=== PATIENT | female | born 1945 | race Caucasian/White ===

== ENCOUNTER → 2018-02-20 15:41 | Outpatient (CLI) | payer MEDICARE, BC, SELFPAY ==
--- NOTE | 2018-02-20 | ASPS_PTH ---
PATIENT: MEREDITH MARRERO LOC: [facility] U#:[id number] AGE/SX: 80/F ROOM: RE02/20/[address]: Dr. Haseeb Luu MD : [id number] BED: DIS: SPEC #: [id number] RECD: 02/21/18 08:34 STATUS: YESSICA MARTINEZAriel #: [id number] JOSE ROBERTO: 02/20/18 00:[address]: Haseeb Luu DEPT: CYTOLOGY RECD BY: Osmani Levine ENTERED: 02/21/18 08:34 SP TYPE: ASPIRATION OTHR DR: Dr. Matthias Bhandari MD Tissues: Nipple Procedures: Pap Stain (control) Special Stain Group II Cytology Other HEADER OPERATION: Left breast nipple discharge PRE-OP DIAGNOSIS: Breast discharge TISSUE SUBMITTED: Left breast slides DIAGNOSIS CYTOLOGY Left breast discharge, left breast nipple discharge (smears): Negative for malignant cells. SJ:claire 02/24/18 COMMENT Clinical correlation and appropriate followup are necessary. CYTOLOGY STUDY Slides are reviewed. This specimen consists of amorphous acellular material. CYTOLOGY GROSS Received are 4 smears labeled with the patient's name and designated per the requisition as left breast discharge. Submitted for staining. /Susy 02/21/18 TC:5 CPT: 49245
== END ==
PROVIDERS: Family Provider Family Medicine; PCP Family Medicine; Visit Provider Surgery
DX: N64.52 Nipple discharge (principal)
CPT/HCPCS: 88161; 88313

== ENCOUNTER 2021-04-21 09:57 | Emergency (ER) | payer MEDICARE, BC, SELFPAY ==
[2021-04-21 09:58] VITALS: BP 161/80; PULSE 114; RESP 18; TEMP 36.4; O2SAT 97; BMI 30.4
--- NOTE | 2021-04-21 10:09 | CT_ITS ---
STUDY: CTA CHEST REASON FOR EXAM: Female, 75 years old. Elevated d-dimer RADIATION DOSAGE (If Supplied By Facility): CTDIvol = ( 11.06 ) mGy, DLP = ( 536.84 ) mGycm TECHNIQUE: The examination was performed with the intravenous administration of IV 100mL Isovue-370. Post-processing of the angiographic images was performed, with multiplanar reformation and 3D reconstruction. Individualized dose optimization techniques were used for this CT. COMPARISON: Comparison is made with prior examination dated 01/08/2017. FINDINGS: Normal enhancement of the main pulmonary artery and right and left pulmonary arteries. Normal enhancement of the bilateral peripheral pulmonary arteries. There is no demonstrated pulmonary embolism. Normal thoracic aorta and visualized great vessels. There is no demonstrated aortic dissection. There are calcifications of the coronary arteries. Normal mediastinum. Normal hilar regions. Normal visualized trachea and bronchi. The lungs are well expanded. Normal pulmonary parenchyma. Normal pleura. Normal chest wall structures. There are degenerative changes of thoracic spine. Normal visualized upper abdomen. CT/CTA Chest W/WO Contrast IMPRESSION: Normal CTA chest examination, without a demonstrated pulmonary embolism or arterial dissection. Electronically Signed: Cade Sweeney MD at 11:05 EDT , Service support ,
--- NOTE | 2021-04-21 10:09 | VDLE_ITS ---
Reason For Study: Elevated D-dimer RIGHT LEFT CFV is compressible, spontaneous, phasic, GSV is normal. competent and demonstrates normal CFV is compressible, spontaneous, phasic, augmentation. competent, and demonstrates normal Procedure augmentation. This is a venous duplex using B-mode, color FV is compressible, spontaneous, phasic, flow and spectral Doppler. competent and demonstrates normal Exam performed portable in ED. augmentation. A preliminary report was called and/or faxed POP V is compressible, spontaneous, phasic, to Ray. competent and demonstrates normal augmentation. T/P Trunk is compressible. PTV is compressible. LT PerV is compressible. VL/Venous Duplex US, Unilateral Interpretation Summary There is no evidence of left lower extremity deep vein thrombosis. Left great s aphenous vein appears patent and compressible segmentally. Normal flow patterns right common femoral vein Ordering Physician: Ephraim Bell Referring Physician: Matthias Bhandari Performed By: Liudmila Allen RVT
--- NOTE | 2021-04-21 10:11 | EX.ED.DYSGE1 ---
HPI History of Present Illness Chief Complaint: Abn Labs Detail of Chief Complaint: Elevated D-dimer with a history of shortness of breath is evaluate for poss Informant: patient Onset/Context/Timing Onset: Month(s) Current Severity: Mild Maximum Severity: Mild Narrative Narrative: 35-year-old female history of asthma and valvular heart disease. Status post left knee replaced at a [facility] facility in December. Since that time she has had swelling in her left leg. She is also had increased shortness of breath. They have changed her asthma get Acacian without relief. She is unable to make it through physical therapy session due to her dyspnea. No chest pain. No hemoptysis. No prior history of DVT or PE. She was seen outpatient facility by pulmonology had elevated D-dimer and they referred her to the emergency department. Prior similar symptoms: Yes Recent Illness/Hospitalization: No PFSH PFS Medical History (Updated 04/21/21 @ 11:[address] Ephraim Bell MD) Asthma HTN (hypertension) Hyperlipidemia Home Medications folic acid 1 mg PO QHS #0 10/07/13 [History Last Taken 10/06/13] lansoprazole [Prevacid] 30 mg PO DAILY #0 10/07/13 [History Last Taken 10/06/13] albuterol sulfate [Proair Hfa (SP)Vent Pts] 1 - 2 puff INHALATION Q4H PRN PRN #0 10/08/13 [History Last Taken Unknown] hydrocortisone acetate [Anucort-HC] 25 mg RECTAL BID PRN PRN 10/08/13 [History Last Taken Unknown] cholecalciferol (vitamin D3) [Vitamin D3] 1,000 unit PO QHS 01/08/17 [History Last Taken Unknown] nystatin 1 applicatio TOPICAL BID 01/08/17 [History Last Taken Unknown] duloxetine 20 mg PO DAILY 04/21/21 [History Last Taken Unknown] vibegron [Gemtesa] 75 mg PO DAILY 04/21/21 [History Last Taken Unknown] Allergy/AdvReac Type Severity Reaction Status Date / Time Penicillins [PCN] Allergy red/rash Verified 04/21/21 10:00 at injection site promethazine HCl Allergy Unknown Verified 04/21/21 10:00 [From Phenergan] Ayoknyx-Udt-Xfb Reductase Allergy Other Verified 04/21/21 10:00 Inhibitor Sulfa (Sulfonamide Allergy Swelling Verified 04/21/21 10:00 Antibiotics) Surgical History (Updated 04/21/21 @ 10:23 by Nell Gonzalez) History of left knee replacement Hx of cholecystectomy Hx of tonsillectomy Social History Smoking Status: Never smoker ROS ROS ED ROS Narrative Denies recent illness. Review of Systems ROS Unobtainable: Denies due to encephalopathy Constitutional Constitutional ED: Denies chills or fever(s) Eyes Eyes: Denies change in vision ENT ENT ED: Denies ear pain or sore throat Cardiovascular Cardiovascular: Denies chest pain or palpitations Respiratory/Chest Respiratory/Chest: Reports dyspnea and dyspnea on exertion; Denies cough Gastrointestinal Gastrointestinal: Denies abdominal pain, diarrhea, nausea or vomiting Genitourinary Genitourinary ED: Denies dysuria or hematuria Musculoskeletal Musculoskeletal: Denies arthralgias or myalgias Integumentary Denies rash Neurologic Neurologic: Denies headache(s) Psychiatric Psychiatric: Denies depression Endocrine Endocrinology: Denies polyuria Allergic/Immunologic Allergic/Immunologic ED: Denies urticaria EXAM Physical Exam Narrative Exam Narrative: NT exam unremarkable. Neck nontender no JVD no lymphadenopathy. Lungs clear to auscultation bilaterally. Heart regular rhythm no murmur. Rate about 100. Abdomen soft nontender normal bowel sounds no peritoneal signs. Patient moving all 4 extremities. Status post left knee replaced well-healed anterior surgical incision. She has mild swelling of the left leg compared to the right. No pitting edema. Calves are nontender without cords. She has normal motor strength both upper and lower extremities.Well-appearing 75-year-old female. Vital signs are stable afebrile. Pulse ox 97% on room air no hypoxia. Const Vital Signs: 04/21/21 09:58 Temperature 97.6 F L Temperature Source Temporal Pulse Rate 114 H Respiratory Rate 18 Blood Pressure 161/80 H Blood Pressure Mean 107 Pulse Ox 97 Oxygen Delivery Method Room Air Positive well nourished and well developed; Negative for obese, cachectic, contractures or unkempt General Appearance ED: well developed and NAD; Negative for unkempt, cachectic, contractures, cyanotic or diaphoretic Nutritional Appearance: Negative for cachectic or obese HEENT Reports moist mucous membranes Negative for trauma or tenderness Eyes PERRL and EOMs intact bilaterally Neck no lymphadenopathy, supple and no JVD General: Negative for tenderness Chest Wall inspection of chest normal and palpation of chest normal Resp normal respiratory effort and clear to auscultation bilaterally Auscultation: Negative for rales, rhonchi or wheezes Cardio regular rate, regular rhythm, S1 normal heart sound, S2 normal heart sound and no murmurs GI normal to inspection, nondistended, normoactive bowel sounds, non-tender and non-distended Auscultation: normoactive bowel sounds Palpation: soft Back/Spine no CVA tenderness General Back: Negative for CVA tenderness Extremity normal to inspection Extremity Narrative: My swelling left lower extremity. Status post left knee replaced. General Extremety ED: Negative for edema or tenderness General Extremity: Negative for edema Neuro oriented x3 and CN's II-XII intact bilaterally Sensorium / Orientation: alert; Negative for orientation impaired, lethargic or stuporous Motor Exam: strength 5/5 throughout; Negative for general weakness Psych mental status grossly normal Appearance: Negative for unkempt Attitude: No agitated Mood & Affect: Negative for depressed or tearful Skin no rashes or lesions noted and no wounds MDM MDM MDM Narrative Medical decision making narrative: 75-year-old female with shortness of breath elevated D-dimer and the knee replaced in December with leg swelling. Screening labs being obtained along with ultrasound of her left leg and a CTA of her chest. Repeat exam at 11:25 AM patient is doing well. Clinically looks good. She had I went over all of her test results. Her hemoglobin is 9.6 she states that is actually improving the most recent one she had done was 9.2 at another facility. She is on iron. I went over her test results with her including her CTA and venous ultrasound. She will follow up as an outpatient. Lab Data Attestation: I reviewed the patient's lab results. Lab results narrative: CBC shows a white count of 7.6. Hemoglobin at 9.6. Electrolytes unremarkable gap of 5. Creatinine of 1. Glucose 111. Ultrasound of the patient's leg showed no DVT on the left. CTA was read by the radiologist showed no PE. Labs: Laboratory Results - last 24 hr 04/21/21 04/21/21 10:14 10:14 WBC 7.6 RBC 4.29 Hgb 9.6 L Hct 33.4 L MCV 77.9 L MCH 22.4 L MCHC 28.7 L RDW Std Deviation 53.5 H RDW Coeff of Kaden 18.9 H Plt Count 580 H MPV 8.4 Immature Gran % (Auto) 0.400 Neut % (Auto) 71.0 H Lymph % (Auto) 19.3 Cochran % (Auto) 5.4 Eos % (Auto) 3.5 Baso % (Auto) 0.4 Absolute Neuts (auto) 5.4 Absolute Lymphs (auto) 1.47 Nucleated RBC % 0 Sodium 138 Potassium 4.4 Chloride 105 Carbon Dioxide 28.0 Anion Gap 5 BUN 16 Creatinine 1.00 Estim Creat Clear Calc 46.54 Est GFR (MDRD) Af Amer 69 Est GFR (MDRD) Non-Af 57 L BUN/Creatinine Ratio 16.0 Glucose 111 H Calcium 9.5 Radiography Diagnostic Testing: Radiology Impression Chest CTA 04/21/21 10:09 IMPRESSION: Normal CTA chest examination, without a demonstrated pulmonary embolism or arterial dissection. Electronically Signed: Cade Sweeney MD at 11:05 EDT , Service support , EKG Initial EKG: Attestation: I personally reviewed and interpreted this EKG as follows: Interpretation: Sinus Rhythm and No Acute Injury Pattern Comments: Normal sinus rhythm rate of 92 no acute signs of IL or ischemia. Discharge Plan Triage Chief Complaint: Abn Labs ED Provider: Ephraim Bell Dx/Rx/DC Orders Clinical Impression: Anemia, chronic disease Prescriptions: No Action lansoprazole [Prevacid] 30 MG capsule 30 mg PO DAILY Qty: 0 RF: 0 folic acid 1 MG tablet 1 mg PO QHS Qty: 0 RF: 0 hydrocortisone acetate [Anucort-HC] 25 MG suppository 25 mg RECTAL BID PRN PRN (Reason: Hemorrhoids) RF: 0 albuterol sulfate [ProAir HFA] 1 PUFF inhaler 1 - 2 puff inhalation Q4H PRN PRN (Reason: Sob &/Or Wheezing) Qty: 0 RF: 0 nystatin 15 GM Cream..G. 1 applicatio topical BID RF: 0 cholecalciferol (vitamin D3) [Vitamin D3] 1,000 UNIT capsule 1,000 unit PO QHS RF: 0 duloxetine 20 mg capsule,delayed release(DR/EC) 20 mg PO DAILY RF: 0 Gemtesa 75 mg tablet 75 mg PO DAILY RF: 0 Primary Care Provider: Layla Bellamy Referrals: Layla Bellamy, PA [Primary Care Provider] - As Needed Activity Restrictions/Additional Instructions: Follow-up with your primary care provider as needed. Your hemoglobin today was 9.6. Your electrolytes are unremarkable. The CAT scan of your chest and ultrasound of your leg showed no signs of any blood clot. Disposition Disposition: Home, Self Care
--- NOTE | 2021-04-21 10:15 | EKG12_ITS ---
Test Reason : HIGH D DIMER Blood Pressure : / mmHG Vent. Rate : 092 BPM Atrial Rate : 092 BPM P-R Int : 112 ms QRS Dur : 078 ms QT Int : 338 ms P-R-T Axes : 000 000 002 degrees QTc Int : 417 ms Normal sinus rhythm Normal ECG Confirmed by PHAM LANE, REAL ([id number]), food editor GEOVANY GIBBONS ([id number]) on 04/26/2021 10:03:54 AM Referred By: DAVID Confirmed By:REAL NATH MD
[2021-04-21 10:23] LABS: Absolute Lymphocyte Count 1.47 X10^3/uL (0.83-4.51); Absolute Neutrophil Count 5.4 X10^3/uL (2.0-7.7); Basophil# 0.03 X10^3/uL; Basophil% 0.4 % (0-1); Eosinophil# 0.27 X10^3/uL; Eosinophils% 3.5 % (0-5); Hematocrit 33.4 % (37-47); Hemoglobin 9.6 g/dL (12.0-15.0); Lymphocyte # 1.47 X10^3/ul (0.83-4.51); Lymphocyte % 19.3 % (19-41); Mean Corp Hgb Conc 28.7 g/dL (32-36); Mean Corpuscular Hgb 22.4 pg (27.0-32.0); Mean Corpuscular Volume 77.9 fL (81-99); Mean Platelet Vol. 8.4 fl (6.2-12.0); Monocyte# 0.41 X10^3/uL; Monocyte% 5.4 % (0-10); NRBC Flagged by Analyzer 0 % (0-5); Neutrophil # 5.42 X10^3/uL (2.7-7.7); Platelet Count 580 K/mm3 (150-450); RBC Distribution Width CV 18.9 % (11.6-14.6); RBC Distribution Width SD 53.5 fl (35.1-43.9); Red Blood Count 4.29 M/mm3 (4.2-5.4); White Blood Count 7.6 K/mm3 (4.4-11.0)
--- NOTE | 2021-04-21 10:35 | ED.RN ---
IV started by jany flores,rn [id number]
[2021-04-21 10:36] LABS: Anion Gap 5 (5-15); BUN 16 mg/dL (7-18); Calcium,Total 9.5 mg/dL (8.5-10.1); Chloride 105 mmol/L (98-107); EST Glomerular Filtration Rate 57 mL/min (>60); Est Glom Filt Rate - Afr Amer 69 mL/min (>60); Estimated Creatinine Clearance 46.54 ml/min; Glucose 111 mg/dL (74-106); Potassium 4.4 mmol/L (3.5-5.1); Sodium Level 138 mmol/L (136-145)
[2021-04-21 11:41] VITALS: BP 129/81; PULSE 83; RESP 16; O2SAT 99
== END 2021-04-21 11:42 | disposition home or self-care (01) ==
PROVIDERS: Emergency Provider Emergency Medicine; PCP Physician Assistant
DX: R79.89 Other specified abnormal findings of blood chemistry (principal); D63.8 Anemia in other chronic diseases classified elsewhere; M79.89 Other specified soft tissue disorders; R06.02 Shortness of breath; I10 Essential (primary) hypertension; E78.5 Hyperlipidemia, unspecified; J45.909 Unspecified asthma, uncomplicated; Z79.899 Other long term (current) drug therapy; Z96.652 Presence of left artificial knee joint
CPT/HCPCS: 71275; 80048; 85025; 93005; 93971; 99282; Q9967; A4216

== ENCOUNTER 2021-08-25 19:15 | Inpatient (IN) | payer MEDICARE, BC, SELFPAY ==
[2021-08-25 19:22] VITALS: BP 144/76; PULSE 96; RESP 16; TEMP 36.4; O2SAT 96
[2021-08-25 19:50] VITALS: BMI 28.0
[2021-08-25 20:50] VITALS: BP 154/66; PULSE 92; RESP 16; TEMP 36.9; O2SAT 96
[2021-08-25] MEDS: Heparin Injection (Vial) 5,000 UNIT/ML VIAL 5000 UNIT SC (21:53)
[2021-08-25] MEDS: busPIRone 5 MG Tablet PO (21:54)
[2021-08-25] MEDS: Senna/Docusate Sodium 1 Tablet 2 TABLET PO (21:54)
[2021-08-25 22:00] VITALS: PULSE 96; RESP 16; O2SAT 95
[2021-08-25] MEDS: 0.9% Saline Lock 10 ML Syringe IV (22:11)
[2021-08-26] MEDS: Acetaminophen 500 MG Tablet 1000 MG PO (02:41)
--- NOTE | 2021-08-26 04:53 | PCM.RX.CS ---
Consult Pharmacy has been consulted to manage selected antiobiotic: Vancomycin Type of Consult: Follow-up Pharmacy Plan for Drug Dosing: Pharmacy Service will continue to monitor and adjust dosing as required. ALREADY ON 1.5G Q24H, DRAW TROUGH PROIR TO NEXT DOSE Follow-Up Labs: Trough Vancomycin Labs to be done on [date and time ordered]: 08/26 @ 9776
[2021-08-26] MEDS: busPIRone 5 MG Tablet PO ×3 (05:39→20:25)
[2021-08-26 07:44] VITALS: BP 145/57; PULSE 78; RESP 16; TEMP 36.6; O2SAT 95
[2021-08-26 07:52] VITALS: O2SAT 97
[2021-08-26] MEDS: Ascorbic Acid 500 MG Tablet 1000 MG PO (08:08)
[2021-08-26] MEDS: Aspirin 81 MG TAB.CHEW PO (08:08)
[2021-08-26] MEDS: Folic Acid/Vitamin B Comp W-C 1 Capsule 1 CAP PO (08:10)
[2021-08-26] MEDS: Pantoprazole Sodium 40 MG Tablet PO (08:10)
[2021-08-26] MEDS: Meloxicam 7.5 MG Tablet PO (08:10)
[2021-08-26] MEDS: Heparin Injection (Vial) 5,000 UNIT/ML VIAL 5000 UNIT SC ×2 (08:10→20:27)
[2021-08-26] MEDS: buPROPion (XL) 150 MG TABLET.XL PO (08:10)
[2021-08-26 09:49] LABS: Absolute Lymphocyte Count 0.94 X10^3/uL (0.83-4.51); Absolute Neutrophil Count 7.4 X10^3/uL (2.0-7.7); Basophil# 0.03 X10^3/uL; Basophil% 0.3 % (0-1); Eosinophil# 0.24 X10^3/uL; Eosinophils% 2.6 % (0-5); Hemoglobin 8.6 g/dL (12.0-15.0); Lymphocyte # 0.94 X10^3/ul (0.83-4.51); Mean Corp Hgb Conc 29.7 g/dL (32-36); Mean Corpuscular Hgb 24.4 pg (27.0-32.0); Mean Corpuscular Volume 82.2 fL (81-99); Mean Platelet Vol. 9.3 fl (6.2-12.0); Monocyte# 0.62 X10^3/uL; Monocyte% 6.6 % (0-10); NRBC Flagged by Analyzer 0 % (0-5); Neutrophil # 7.43 X10^3/uL (2.7-7.7); Neutrophil % 79.2 % (47-70); Platelet Count 421 K/mm3 (150-450); RBC Distribution Width CV 18.9 % (11.6-14.6); Red Blood Count 3.53 M/mm3 (4.2-5.4); White Blood Count 9.4 K/mm3 (4.4-11.0)
[2021-08-26 10:07] LABS: ALB/GLOB Ratio 0.5 RATIO (0.9-2.4); AST(SGOT) 22 U/L (15-37); Alanine Aminotransfer ALT/SGPT 54 U/L (13-56); Albumin, Serum 2.2 g/dL (3.2-5.0); Alkaline Phosphatase 152 U/L (45-117); Anion Gap 6 (5-15); BUN 11 mg/dL (7-18); BUN/Creat Ratio 14.1 RATIO (10-20); Calcium,Total 9.1 mg/dL (8.5-10.1); Chloride 107 mmol/L (98-107); Creatinine, Serum 0.78 mg/dL (0.55-1.02); EST Glomerular Filtration Rate 76 mL/min (>60); Est Glom Filt Rate - Afr Amer 92 mL/min (>60); Globulin 4.4 g/dL (2.2-4.2); Glucose 140 mg/dL (74-106); Magnesium 2.2 mg/dL (1.6-2.6); Phosphorus 2.3 mg/dL (2.5-4.9); Potassium 3.5 mmol/L (3.5-5.1); Protein, Total 6.6 g/dL (6.4-8.2); Sodium Level 141 mmol/L (136-145)
[2021-08-26] MEDS: Ferrous Sulfate 325 MG Tablet PO (13:08)
[2021-08-26 13:42] LABS: Erythrocyte Sedimentation Rate 100 mm/hr (0-30)
[2021-08-26] MEDS: Na Biphos/Potassium Phosphate PACKET 1 PACKET PO ×2 (16:52→20:28)
[2021-08-26 19:21] VITALS: BP 149/87; PULSE 89; RESP 16; TEMP 36.6; O2SAT 97
[2021-08-26] MEDS: Rosuvastatin Calcium 5 MG Tablet PO (20:26)
[2021-08-26 21:12] VITALS: PULSE 92; RESP 16; O2SAT 96
[2021-08-26 22:01] LABS: Vancomycin, Trough Level 11.6 ug/mL (5.0-15.0)
--- NOTE | 2021-08-27 00:56 | PCM.RX.CS ---
Consult Pharmacy has been consulted to manage selected antiobiotic: Vancomycin Type of Consult: Follow-up Labs: Sodium 141 mmol/L (136-145) 08/26/21 09:28 Potassium 3.5 mmol/L (3.5-5.1) 08/26/21 09:28 Chloride 107 mmol/L (98-107) 08/26/21 09:28 Carbon Dioxide 28.0 mmol/L (21.0-32.0) 08/26/21 09:28 Anion Gap 6 (5-15) 08/26/21 09:28 BUN 11 mg/dL (7-18) 08/26/21 09:28 Creatinine 0.78 mg/dL (0.55-1.02) 08/26/21 09:28 Est GFR (MDRD) Af Amer 92 mL/min (>60) 08/26/21 09:28 Est GFR (MDRD) Non-Af 76 mL/min (>60) 08/26/21 09:28 BUN/Creatinine Ratio 14.1 RATIO (10-20) 08/26/21 09:28 Glucose 140 mg/dL (74-106) H 08/26/21 09:28 Vancomycin Trough 11.6 ug/mL (5.0-15.0) 08/26/21 21:28 Pharmacy Plan for Drug Dosing: Pharmacy Service will continue to monitor and adjust dosing as required. TROUGH 11.1 REDRAW IN 2 DOSES Follow-Up Labs: Trough Vancomycin Labs to be done on [date and time ordered]: 08/28 @ 5776
[2021-08-27] MEDS: busPIRone 5 MG Tablet PO ×3 (06:00→21:19)
[2021-08-27] MEDS: Na Biphos/Potassium Phosphate PACKET 1 PACKET PO ×3 (06:00→21:17)
[2021-08-27 08:00] VITALS: BP 135/76; PULSE 85; RESP 16; TEMP 36.9; O2SAT 98
[2021-08-27] MEDS: Pantoprazole Sodium 40 MG Tablet PO (08:27)
[2021-08-27] MEDS: Aspirin 81 MG TAB.CHEW PO (08:28)
[2021-08-27] MEDS: Heparin Injection (Vial) 5,000 UNIT/ML VIAL 5000 UNIT SC ×2 (08:28→21:18)
[2021-08-27] MEDS: Ascorbic Acid 500 MG Tablet 1000 MG PO (08:28)
[2021-08-27] MEDS: buPROPion (XL) 150 MG TABLET.XL PO (08:31)
[2021-08-27] MEDS: Meloxicam 7.5 MG Tablet PO (08:32)
[2021-08-27] MEDS: Folic Acid/Vitamin B Comp W-C 1 Capsule 1 CAP PO (08:32)
[2021-08-27] MEDS: Acetaminophen 500 MG Tablet 1000 MG PO (08:41)
[2021-08-27] MEDS: 0.9% Saline Lock 10 ML Syringe IV ×2 (08:44→21:21)
[2021-08-27 09:24] VITALS: O2SAT 96
--- NOTE | 2021-08-27 10:03 | PCM.HP.STD ---
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 Calderon at [facility]. She is on IV Vancomycin currently and the final cultures were not available at the time of transfer from [place]. She was transferred to the in acute rehab unit at [facility] on 08/25/21 for 3 hours of PT/OT daily to restore function/dependence at or near her baseline. She has no help at home since her is in rehab at [facility] for CVA and for a non-healing wound. She is ambulatory. She has a PICC line for antibiotic administration. Post-op cultures were still pending at the time of DC from [place]. She has 1 step to enter her home. Walk in shower. She lives in a condo at [facility]. All lab from 08/26/21 was personally reviewed. She has not had her Booster for Moderna - The second vaccine was last September. [facility] Medical History (Updated 08/27/21 @ 12:[address] Joslyn Aleman, ) Anxiety and depression Asthma CAD (coronary artery disease) Diverticulosis GERD (gastroesophageal reflux disease) Grade I diastolic dysfunction History of gastrointestinal bleeding HTN (hypertension) Hyperlipidemia IBS (irritable bowel syndrome) Intraductal papillary mucinous neoplasm Iron deficiency anemia Nonrheumatic mitral valve regurgitation RAVIN (obstructive sleep apnea) Osteoarthritis Peripheral neuropathy Prosthetic joint infection Pulmonary HTN Pulmonary nodules Seasonal allergies Urge urinary incontinence Home Medications folic acid 1 mg PO QHS #0 10/07/13 [History Last Taken 10/06/13] lansoprazole [Prevacid] 30 mg PO DAILY #0 10/07/13 [History Last Taken 10/06/13] albuterol sulfate [Proair Hfa (SP)Vent Pts] 2 puff INHALATION Q6H PRN PRN #0 10/08/13 [History Last Taken Unknown] vibegron [Gemtesa] 75 mg PO DAILY 04/21/21 [History Last Taken Unknown] Allergy/AdvReac Type Severity Reaction Status Date / Time Penicillins [PCN] Allergy red/rash Verified 04/21/21 10:00 at injection site promethazine HCl Allergy Unknown Verified 04/21/21 10:00 [From Phenergan] Wlzxhou-AEI-CiO Reductase Allergy Other Verified 04/21/21 10:00 Inhibitor [Iacyngw-Hix-Cwp Reductase Inhibitor] Sulfa (Sulfonamide Allergy Swelling Verified 04/21/21 10:00 Antibiotics) Family History (Updated 08/27/21 @ 10:[address] Joslyn Aleman DO) Grandfather Cancer paternal GF Grandfather Cancer maternal GF Father CAD (coronary artery disease) Diabetes Grandmother No problems noted. Mother CAD (coronary artery disease) Brother CAD (coronary artery disease) Sister Diabetes Surgical History (Updated 08/27/21 @ 10:[address] Joslyn Aleman DO) Acquired absence of joint following explantation of joint prosthesis with presence of antibiotic-impregnated cement speaker History of left knee replacement Hx of cholecystectomy Hx of tonsillectomy Social History (Updated 08/27/21 @ 10:[address] Joslyn Aleman DO) household members: spouse and other details: is currently in a SNF for rehab post CVA housing: house Smoking Status: Never smoker alcohol intake: never substance use type: does not use ROS Constitutional Constitutional: Reports other Details: insomnia ; Denies anorexia, change in weight, chills, fatigue, fever(s), night sweats or weakness Eyes Eyes: Denies blurry vision, change in vision, eye pain or loss of vision ENT HEENT: Denies abnormal hearing, dysphagia, headache(s), hearing loss, nasal congestion, odynophagia or sore throat Cardiovascular Cardiovascular: Reports dyspnea on exertion and lightheadedness; Denies chest pain, edema, orthopnea, palpitations, paroxysmal nocturnal dyspnea, syncope or vomiting Respiratory/Chest Respiratory/Chest: Reports shortness of breath with exertion; Denies cough, dyspnea, shortness of breath at rest or wheezing Gastrointestinal Gastrointestinal: Reports constipation, diarrhea and other Details: She is c/o diarrhea X 2 days....she was constipated at [facility] and received laxatives and she was placed on stool softeners. 3 BM's yesterday. No blood. ; Denies abdominal pain, dyspepsia, hematemesis, hematochezia, nausea or vomiting Genitourinary Genitourinary: Reports urinary urgency and other Details: Denies vaginal DC ; Denies dysuria, hematuria, nocturia, urinary frequency, urinary hesitancy or urinary incontinence Musculoskeletal Musculoskeletal: Reports joint pain, myalgias, numbness and other Details: She is c/o pain behind the knee on the left. She has numbness in the left foot. ; Denies back pain, joint swelling or neck pain Integumentary Integumentary: Reports wounds and other Details: she has an incision of the left knee due to the explant ; Denies jaundice Neurologic Neurologic: Reports paresthesias LLE (Left foot only); Denies confusion, disequilibrium, dizziness, focal weakness, headache(s), seizures or tremor(s) Psychiatric Psychiatric: Reports anxiety, depression and other Details: she is very anxious. Was previously on Paxil but, she was still depressed and she was transitioned to Wellbutrin about 8 months ago. Anxiety increased with Wellbutrin and she has been taking Buspar BUT, she has been taking it PRN and does not feel it helps. ; Denies homicidal ideation or suicidal ideation Endocrine Endocrinology: Reports other Details: She has hot flashes and sweating only when she is anxious ; Denies change in body appearance, polydipsia or polyuria Hematologic/Lymphatic Hematologic/Lymphatic: Denies easy bleeding, easy bruising or lymphadenopathy Allergic/Immunologic Allergic/Immunologic: Reports asthma; Denies rhinitis or eczemia Vital Signs Vital Signs Vital Signs: 08/26/21 19:21 08/26/21 21:12 08/27/21 08:00 Temperature 97.8 F 98.5 F Temperature Source Oral Oral Pulse Rate 89 92 85 Respiratory Rate 16 16 16 Respiratory Effort Normal Non-Labored Respiratory Depth Normal Respiratory Pattern Normal Blood Pressure 149/87 H 135/76 H Blood Pressure Mean 107 95 Blood Pressure Source Monitor Monitor Blood Pressure Position Semi-Fowlers Sitting Blood Pressure Location Right Arm Left Arm Pulse Ox 97 96 98 Oxygen Delivery Method Room Air Room Air 08/27/21 09:24 Temperature Temperature Source Pulse Rate Respiratory Rate Respiratory Effort Respiratory Depth Respiratory Pattern Blood Pressure Blood Pressure Mean Blood Pressure Source Blood Pressure Position Blood Pressure Location Pulse Ox 96 Oxygen Delivery Method Room Air Weight Weight: 179 lb 10.828 oz Body Mass Index (BMI) 28.0 Physical Exam Const alert and oriented x3 Constitutional Narrative: She is anxious General Appearance: cooperative, well kempt, well developed and anxious Orientation / Consciousness: oriented to person, oriented to place and oriented to time HEENT normocephalic HEENT Narrative: Very dry MM Mouth: oral and palatal mucosa normal and dry mucous membranes Eyes PERRL, EOMs intact bilaterally, conjunctivae normal and no scleral icterus Neck No nuchal rigidity, no lymphadenopathy and no carotid bruits Carotids: normal carotid upstroke Chest Chest Narrative: She has an external monitoring engineer present Chest: symmetrical chest wall rise Resp normal respiratory effort, normal air movement, no use of accessory muscles and clear to auscultation bilaterally Effort and Inspection: able to speak in complete sentences Cardio regular rate, regular rhythm, S1 normal heart sound, S2 normal heart sound, no murmurs, no rub and no gallops Cardio Narrative: the HR increased while I was examining her and I suspect this is due to anxiety Jugular Venous Distention: Negative for JVD Peripheral Pulses: pulses 2+ throughout GI soft to palpation, non-tender and non-distended GI Narrative: normal BS's and no guarding with palpation Back/Spine General Back: Negative for CVA tenderness Extremity normal capillary refill, no clubbing, cyanosis or edema, no calf tenderness and no pedal edema Peripheral Pulses: Yes pulses 2+ throughout Skin no rashes or lesions noted Skin Narrative: The Left leg is in a immobilizer. Will remove the post-op dressing tomorrow and examine the wound prior to placing the silver dressing over the wound for 7 days. General Skin Exam: no breakdown Neuro oriented x3, CN's II-XII intact bilaterally and moves all extremities Neuro Narrative: Decreased sensation Left foot Psych mental status grossly normal, thought process normal, cooperative, speech normal, denies hallucinations, denies homicidal ideation and denies suicidal ideation Appearance: grossly normal Activity / Motor Behavior: appropriate eye contact and fidgetting Mood & Affect: anxious Attention / Concentration: attention grossly intact Memory / Cognition: memory grossly intact Results Lab / Micro Data Result Diagrams: 08/26/21 09:28 08/26/21 09:28 Labs: Laboratory Results - last 24 hr 08/26/21 09:28: Sodium 141, Potassium 3.5, Chloride 107, Carbon Dioxide 28.0, Anion Gap 6, BUN 11, Creatinine 0.78, Estim Creat Clear Calc 44.10, Est GFR (MDRD) Af Amer 92, Est GFR (MDRD) Non-Af 76, BUN/Creatinine Ratio 14.1, Glucose 140 H, Calcium 9.1, Phosphorus 2.3 L, Magnesium 2.2, Total Bilirubin 0.30, AST 22, ALT 54, Alkaline Phosphatase 152 H, Total Protein 6.6, Albumin 2.2 L, Globulin 4.4 H, Albumin/Globulin Ratio 0.5 L 08/26/21 09:28: ESR 100 H 08/26/21 09:28: C-React Prot Ext Range 81.30 H 08/26/21 21:28: Vancomycin Trough 11.6 Assessment & Plan Assessment/Plan (1) Physical debility: (2) Prosthetic joint infection: (3) Aftercare following explantation of knee joint prosthesis: (4) Iron deficiency anemia: (5) Hypophosphatemia: (6) Insomnia: (7) Grade I diastolic dysfunction: (8) Intraductal papillary mucinous neoplasm: (9) RAVIN (obstructive sleep apnea): (10) CAD (coronary artery disease): PLAN: PLAN PT for gait stability OT for ADL's ST for evaluation Analgesics as needed Bowel protocol Fall precautions Assess for Anxiety/Depression GI prophylaxis with Protonix 40 mg p.o. daily DVT prophylaxis with heparin 5000 units subcu every 12 hours AM lab including CMP, CBC, Mag and Phos She is living alone and anticipates her will be in a SNF for at least 6 more months......CVA X 2 and a large non-healing wound. She lives in a condo at [facility] and has only 1 step to enter her home. Suspect she will be able to manage by herself at [place]. Will request the final culture reports from [facility]. MRSA? or MSSA. Consult pharmacy to manage the Vancomycin dosing. Trough is a little lower than desired but, she did not receive the dose of Vanco on the day of admission until several hours after it was due.....[place] failed to administer. Give Moderna booster while she is in rehab. Add Vitamin C to the Ferrous Sulfate to hopefully improve absorption. She has been getting Iron infusions from Dr. Kwan due to poor absorption of iron (possibly due to continuous Protonix administration) and the last infusion was in June. Will check a ferritin, iron and TIBC/transferrin saturation and give IV Iron sucrose if the transferrin saturation is less than 15 or the ferritin is less than 50. APPTS: 1. Gee Cantu 09/05/21 14:30 [place] [facility] 2. Toney Bellamy 09/21/21 @ 09:[address] [facility] [address] Kwan 10/04/21 @ 10:[address] Randolph Clancy 02/09/22 @ 13:00 Unit Exclusion This patient is an acute care inpatient being housed in the excluded unit because of capacity issues related to the disaster or emergency.: Yes Charges/Coding Visit Charges Inpatient E&M: 72183 Init Hosp L3
--- NOTE | 2021-08-27 10:50 | REHABEVAL_ITS ---
Admission Information Primary Diagnosis:: physical debility due to prosthetic joint infection with hx of explant L TKR and placement of an antibiotic joint spacer on 08/21/21 Status Changes from Prescreening?: No changes Identified Actual Problem List:: Infection, Skin Intergrity, Pain, ALteration in Cmfrt, Depression, Alteration in Sleep, Mobility Impaired, Self Care Deficit, BP, Hypertension and Alteration-Leisure Activ. Potential Problem List:: DVT, Bleeding, Infection, UTI, Aspiration, Falls, Skin Integrity and Depression Risk of Complications DVT: LINDA Hose and - (heparin) Bleeding: Monitor Lab Values, Nursing to Teach Precautions for anti-coagulation therapy., Wound, if applicable, to be assessed every shift. and Stroke patients assessed for lethargy or change in status. Infection: Clinical Staff to Monitor for S/S of infection: and S/S of infection include fever, redness, warmth, etc. Urinary Tract Infection: Monitor for frequency, burning, discomfort, or incontinence. and Nursing will obtain urine sample for urinalysis and C&S when ordered. Aspiration: Clinical staff will monitor for coughing, drooling, congestion., Speech will evaluate swallowing and dsyphasia. and Nursing will monitor patient swallowing during meals. Falls: Patient will be evaluated for Fall Precautions and Patient will be placed on Fall Precautions as indicated per protocol. Skin Breakdown: Nursing will assess skin daily using assessment tool. and Nursing will place on Skin Breakdown Precautions as indicated. Pain: Clinical staff will assess patient's pain level per protocol., Medications will be given, if needed, and the pain level reassessed. and Other methods: Massage, distraction, decrease stimulus, etc. used PRN. Plan of Care Patient requires physician specializing in physical medicine and rehab oversight to provide close medical supervision of rehab issues including: Pain Management, Sleep Problems, Bowel and Bladder, Medical and co-morbidity Management, DVT prophylaxis, Rehabilitation Leadership and Coordination of treatment team Patient needs Physical Therapy: For a minimum of 1 hour and At least 5 out of 7 days Patient needs Physical Therapy to improve:: Mobility, Strengthening, Transfers, Stretching, ROM, Endurance, Stairs, Gait and Balance Patient needs Occupational Therapy: For a minimum of 1 hour and At least 5 out of 7 days Patient needs Occupational Therapy to improve ADL's incl.: Eating, Grooming, Bathing, Dressing, Toileting, Toilet transfers, Community Reintegration, Higher functioning activities, Household tasks, Adaptive Equipment, Splinting and Other activities as determined Patient requires 24/7 Rehabilitation Nursing for: Pain Issues, Identifying and preventing risk factors, Monitoring and reporting current medical conditions, Assisting with ambulation, transfer, and all ADL's, Teaching patients about disease process and medications, Family teaching, Providing safe environment, Bowel and Bladder Issues, Skin integrity and Medication Management Patient needs Mammalogy Teacher/ Case Management for: Discharge Planning, Arranging Home Equipment or Services and Family Interventions Patient needs Dietary and Nutrition Services for: Adequate Nutrition, Nutritional Supplements and Nutritional Education Goals Patient will remain: free from falls and or injury at time of discharge. Patient will perform bed mobility at: MOD I level of assist. Patient will complete transfers from bed to chair at: MOD I level of assist. Patient will ambulate: with LRD and - (150 feet with front wheeled walker at standby assist) Patient will complete upper body dressing at: MOD I level of assist. Patient will complete lower body dressing at: MOD I level of assist. Patient will complete toileting at: MOD I level of assist. Patient will perform bathing at: MOD I level of assist. Patient will complete grooming at: MOD I level of assist. Patient will complete home management skills at: MOD I level of assist. Patient will achieve: - (1 curb step without a handrail to gain access into her home) Patient will have pain level of: of 3 or less Patient's skin will: remain intact Patient will receive: adequate nutrition. Discharge Planning Pt Prognosis for Sig. Practical Improv. w/in Reasonable Time: Good Estimated Length of stay (days): 30 Anticipated D/C Destination: Home with Home Health
[2021-08-27] MEDS: Ferrous Sulfate 325 MG Tablet PO (13:08)
[2021-08-27 19:39] VITALS: BP 145/68; PULSE 86; RESP 18; TEMP 36.6; O2SAT 93
[2021-08-27 19:42] VITALS: PULSE 85; RESP 16; O2SAT 96
[2021-08-27] MEDS: traZODone 50 MG Tablet PO (20:13)
[2021-08-27] MEDS: Rosuvastatin Calcium 5 MG Tablet PO (21:18)
[2021-08-28] MEDS: busPIRone 5 MG Tablet PO ×4 (06:04→20:30)
[2021-08-28] MEDS: Na Biphos/Potassium Phosphate PACKET 1 PACKET PO ×2 (06:04→13:22)
[2021-08-28 07:05] VITALS: PULSE 89; RESP 16; O2SAT 98
[2021-08-28] MEDS: Albuterol 2.5 MG/3 ML VIAL.NEB. INHALATION ×3 (07:05→21:20)
[2021-08-28 08:02] VITALS: BP 159/62; PULSE 97; RESP 16; TEMP 37.2; O2SAT 100
[2021-08-28] MEDS: Aspirin 81 MG TAB.CHEW PO (08:02)
[2021-08-28] MEDS: Meloxicam 7.5 MG Tablet PO (08:02)
[2021-08-28] MEDS: Heparin Injection (Vial) 5,000 UNIT/ML VIAL 5000 UNIT SC ×2 (08:02→20:31)
[2021-08-28] MEDS: Folic Acid/Vitamin B Comp W-C 1 Capsule 1 CAP PO (08:02)
[2021-08-28] MEDS: Senna/Docusate Sodium 1 Tablet 2 TABLET PO (08:03)
[2021-08-28] MEDS: buPROPion (XL) 150 MG TABLET.XL PO (08:03)
--- NOTE | 2021-08-28 10:50 | PCM.PN.BLA ---
Progress Note Day #8 Vancomycin for prosthetic joint infection due to SA - waiting for the final culture to see if it is MRSA Afebrile VSS - the systolic BP is mildly elevated most times it is taken Maintaining appropriate oxygen saturation on RA Oral intake is improving Discussed with nursing - no problems that need addressed. Reviewed the PT/OT notes Medication list reviewed. She slept better with the addition of Trazodone to the HS drug regimen. Fasting BS was elevated on 08/26/21 at 140 but she may have had breakfast prior to the blood being drawn. She has no hx of DM but, there is a FH. Received lab from [facility] and the synovium cultures from the Left knee at the time of explantation were No growth for 3 days and no WBC's or bacteria in the smear. I wonder where the diagnosis of Staph Aureus came from? Perhaps she had an arthrocentesis prior to the surgery. Will request Dr. Calderon's office notes. alert and oriented X 3, NAD. The left knee is a little sore with activity but, she denies needing anything other than Tylenol for pain control. No N/V/abd pain and no calf pain. Denies lightheadedness today. Vanco trough tonight at 21:30 and then will change the dose to an earlier time of day on 08/29/21. Denies diarrhea today. Lungs - CTA HRRR with no ectopy abd - soft and NT with normal BS's no ankle edema and no calf tenderness Impressions 1. prosthetic L knee infection - reportedly due to SA - will request the labs and last PN from ortho 2. 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 3. Hypophosphatemia - has been supplemented 4. thrombocytosis - suspect due to iron deficiency 5. Insomnia Continue antibiotics and therapy. Weekly CBC with Diff, BMP, ESR and CRP Increase the Trazodone to 100 mg at HS. She seems less anxious today now that she got somewhat better sleep last night Order a Moderna Booster for her Visit Charges Inpatient E&M: 97217 Subs Hosp L2
[2021-08-28] MEDS: Ferrous Sulfate 325 MG Tablet PO (13:21)
[2021-08-28] MEDS: Ascorbic Acid 500 MG Tablet 1000 MG PO (13:21)
[2021-08-28] MEDS: Pantoprazole Sodium 40 MG Tablet PO (13:21)
--- NOTE | 2021-08-28 13:59 | CASEMGMT ---
Social Work Team meeting held with pt present. Attempted to call pt sister with no answer. Pt is currently participating in PT/OT and making functional gains. Pt is currently on a 6 week course of IV ATB. Pt lives at home alone with limited support system. Pt is unlikely able to self administer IVATB and may need short term SNF placement to complete antibiotic treatment. Pt is disabled and in nursing facility. No discharge date set at this time. Will continue with treatment plan and reteam next week. RADHA Smith
[2021-08-28 14:30] VITALS: PULSE 92; RESP 16
--- NOTE | 2021-08-28 15:03 | CPS ---
PT WAS WITH PT AND OT,DELAYED SCHEDULED AEROSOL. SET UP HER HOME CPAP UNIT AND REPLACED MASK WITH SL STOCK, ENCOURAGED USE WITH ALL SLEEP
--- NOTE | 2021-08-28 15:16 | CHAPLAIN ---
Type of Pastoral Visit _x__ Initial Visit ___ Follow-up Visit ___ On-call Visit ___ General Patient Visit ___ Spiritual Assessment ___ Family Conference ___ Bereavement ___ Rapid Response ___ Code Blue ___ Other (describe below) Pastoral Care Referral From _x__ Patient ___ Family ___ Nurse ___ Physician ___ Development Assistant ___ Mandrel Puller ___ Other (describe below) Sacrament/Intervention _x__ Active listening ___ Anointing ___ Mandaeism ___ Bereavement ___ Communion ___ Janel exploration ___ _x__ Life review _x__ Prayer ___ Reconciliation ___ Sacrament of Sick _x__ Supportive presence ___ Wedding ___ Other (describe below) Pastoral Comments met this patient recently when her was a pt in [facility]; spouse is now in ECF; pt had this scheduled surgery due to infection in her knee replacement; pt knows that she will be incapacitated for a few weeks and will be unable to see her in those weeks; pt admits to having some anxiety and depression which medical team is beginning to address with her; pt would like devotional reading material during her stay; pt requests prayer support for both; pt is member of a local hindu ([employer])
--- NOTE | 2021-08-28 15:21 | WOUNDNOTE ---
wound photo: left knee
[2021-08-28 19:06] VITALS: BP 148/66; PULSE 94; RESP 18; TEMP 37; O2SAT 97
[2021-08-28 19:58] VITALS: PULSE 82; RESP 16; O2SAT 95
[2021-08-28] MEDS: traZODone 100 MG Tablet PO (20:28)
[2021-08-28] MEDS: Rosuvastatin Calcium 5 MG Tablet PO (20:31)
[2021-08-28 21:20] VITALS: PULSE 96; RESP 16
[2021-08-28 22:06] LABS: Vancomycin, Trough Level 12.4 ug/mL (5.0-15.0)
[2021-08-28 22:08] LABS: Ferritin 928 ng/mL (8-252); Iron 33 ug/dL (50-170); Iron Binding Capacity,Total 207 ug/dL (250-450); PERCENT IRON SATURATION 15.9 % (15.0-55.0)
--- NOTE | 2021-08-28 22:27 | PCM.RX.CS ---
Consult Pharmacy has been consulted to manage selected antiobiotic: Vancomycin Type of Consult: Follow-up Labs: Sodium 141 mmol/L (136-145) 08/26/21 09:28 Potassium 3.5 mmol/L (3.5-5.1) 08/26/21 09:28 Chloride 107 mmol/L (98-107) 08/26/21 09:28 Carbon Dioxide 28.0 mmol/L (21.0-32.0) 08/26/21 09:28 Anion Gap 6 (5-15) 08/26/21 09:28 BUN 11 mg/dL (7-18) 08/26/21 09:28 Creatinine 0.78 mg/dL (0.55-1.02) 08/26/21 09:28 Est GFR (MDRD) Af Amer 92 mL/min (>60) 08/26/21 09:28 Est GFR (MDRD) Non-Af 76 mL/min (>60) 08/26/21 09:28 BUN/Creatinine Ratio 14.1 RATIO (10-20) 08/26/21 09:28 Glucose 140 mg/dL (74-106) H 08/26/21 09:28 Vancomycin Trough 12.4 ug/mL (5.0-15.0) 08/28/21 21:20 Goal Trough: 10-15 mcg/mL Pharmacy Plan for Drug Dosing: Pharmacy Service will continue to monitor and adjust dosing as required. TROUGH 12.4 NO CHANGES, FOLLOW UP TROUGH IN 4 DAYS Follow-Up Labs: Trough Vancomycin Labs to be done on [date and time ordered]: 09/01 @ 7667
[2021-08-29] VITALS (7 sets, daily range): BP systolic 145–156; BP diastolic 52–67; PULSE 77–92; RESP 16–18; TEMP 36.5–36.9; O2SAT 98
[2021-08-29] MEDS: Acetaminophen 500 MG Tablet 1000 MG PO (05:08)
[2021-08-29] MEDS: Albuterol 2.5 MG/3 ML VIAL.NEB. INHALATION ×3 (06:49→19:41)
[2021-08-29] MEDS: Aspirin 81 MG TAB.CHEW PO (08:07)
[2021-08-29] MEDS: Meloxicam 7.5 MG Tablet PO (08:08)
[2021-08-29] MEDS: Heparin Injection (Vial) 5,000 UNIT/ML VIAL 5000 UNIT SC ×2 (08:08→21:10)
[2021-08-29] MEDS: Folic Acid/Vitamin B Comp W-C 1 Capsule 1 CAP PO (08:09)
[2021-08-29] MEDS: buPROPion (XL) 150 MG TABLET.XL PO (08:09)
[2021-08-29] MEDS: Pantoprazole Sodium 40 MG Tablet PO (08:09)
[2021-08-29] MEDS: Senna/Docusate Sodium 1 Tablet 2 TABLET PO (08:10)
[2021-08-29] MEDS: Ascorbic Acid 500 MG Tablet 1000 MG PO (13:14)
[2021-08-29] MEDS: Ferrous Sulfate 325 MG Tablet PO (13:14)
[2021-08-29] MEDS: busPIRone 5 MG Tablet PO ×2 (13:14→21:10)
--- NOTE | 2021-08-29 13:45 | PCM.PN.BLA ---
Progress Note Afebrile Systolic blood pressure is mildly elevated and I suspect this is due to unrelieved anxiety. Heart rate is within normal limits She is maintaining appropriate oxygen saturation on room air Cheryl tells me she did not fall asleep until 5 AM this morning. She revealed to her nurse that her adopted son is fleeing from the law and she is quite anxious about this. She does not know where he is. She is also very anxious about her who has had 2 strokes and has a nonhealing wound and will likely be a long-term resident of SNF/ECF. She has no one to help her. The wound on the Left knee is coapted well and the incision is intact with no purulent Dc and no emily-wound erythema. The drain was removed yesterday and a silver impregnated dressing was applied and will not be changed for 7 days unless she has a fever or the WBC starts to increase. HRRR - the rate increases when she is anxious. no MM and no gallop L - CTA no calf pain Impressions 1. generalized anxiety - she has a lot going on in her life at this time and she has no one to rely on for help. The Trazodone does not seem to be helping with the insomnia. will DC the Trazodone and start Klonopin 0.5 mg at 2100 nightly. 2. Prosthetic joint infection with MRSA status post explant and insertion of an antibiotic spacer. Continue vancomycin. Stop date is 08/01/2022. 3. insomnia 4. iron deficiency anemia - serum iron is low at 33 however the transferrin saturation is WNL and the ferritin is 928 although this is likely somewhat elevated due to the infection/inflammation. Will continue the ferrous sulfate + vitamin C and continue to monitor the HGB weekly Visit Charges Inpatient E&M: 07899 Subs Hosp L1
[2021-08-29] MEDS: 0.9% Saline Lock 10 ML Syringe IV (20:48)
[2021-08-29] MEDS: clonazePAM 0.5 MG Tablet PO (21:10)
[2021-08-29] MEDS: Rosuvastatin Calcium 5 MG Tablet PO (21:10)
[2021-08-30] MEDS: busPIRone 5 MG Tablet PO ×3 (05:49→21:20)
[2021-08-30 06:30] VITALS: PULSE 85; RESP 14
[2021-08-30] MEDS: Albuterol 2.5 MG/3 ML VIAL.NEB. INHALATION ×2 (06:34→13:00)
[2021-08-30 07:46] VITALS: BP 138/63; PULSE 86; RESP 16; TEMP 36.9; O2SAT 96
[2021-08-30] MEDS: Heparin Injection (Vial) 5,000 UNIT/ML VIAL 5000 UNIT SC ×2 (08:05→21:20)
[2021-08-30] MEDS: Aspirin 81 MG TAB.CHEW PO (08:05)
[2021-08-30] MEDS: Pantoprazole Sodium 40 MG Tablet PO (08:06)
[2021-08-30] MEDS: Senna/Docusate Sodium 1 Tablet 2 TABLET PO (08:06)
[2021-08-30] MEDS: buPROPion (XL) 150 MG TABLET.XL PO (08:06)
[2021-08-30] MEDS: Meloxicam 7.5 MG Tablet PO (08:06)
[2021-08-30] MEDS: Folic Acid/Vitamin B Comp W-C 1 Capsule 1 CAP PO (08:06)
[2021-08-30] MEDS: Ferrous Sulfate 325 MG Tablet PO (12:07)
[2021-08-30] MEDS: Ascorbic Acid 500 MG Tablet 1000 MG PO (12:07)
[2021-08-30 13:00] VITALS: PULSE 87; RESP 16
[2021-08-30 19:29] LABS: Bacteria 0 SEEN /hpf (None Seen); Mucous, Urine 0 SEEN /hpf (<or=2+); Red Blood Cells-Urine 0 SEEN /hpf (0-5); Squamous Epithelial Cells - UA 0 SEEN /hpf (5-10); White Blood Cells 0 SEEN /hpf (0-5)
[2021-08-30 19:30] LABS: Color, Urine Yellow (Yellow); Glucose, Dipstick Normal (Normal); Ketone-Dipstick Negative (Negative); Leukocyte Esterase-Dipstick Negative /ul (Negative); Nitrite-Dipstick Negative (Negative); Occult Blood-Urine Negative /ul (Negative); Protein-Dipstick Negative (Negative); Urine Bilirubin Dipstick Negative (Negative); Urine Clarity Clear (Clear); Urine Urobilinogen Normal (Normal)
[2021-08-30 20:05] VITALS: BP 144/64; PULSE 96; RESP 16; TEMP 36.6; O2SAT 96
[2021-08-30] MEDS: clonazePAM 0.5 MG Tablet PO (21:20)
[2021-08-30] MEDS: Rosuvastatin Calcium 5 MG Tablet PO (21:21)
[2021-08-30] MEDS: 0.9% Saline Lock 10 ML Syringe IV (22:13)
[2021-08-31] MEDS: busPIRone 5 MG Tablet PO ×3 (05:57→21:37)
[2021-08-31] MEDS: Acetaminophen 500 MG Tablet 1000 MG PO ×2 (06:00→15:30)
[2021-08-31 07:20] VITALS: BP 165/69; PULSE 94; RESP 12; TEMP 36.4; O2SAT 95
[2021-08-31] MEDS: Pantoprazole Sodium 40 MG Tablet PO (07:47)
[2021-08-31] MEDS: Meloxicam 7.5 MG Tablet PO (07:47)
[2021-08-31] MEDS: Aspirin 81 MG TAB.CHEW PO (07:47)
[2021-08-31] MEDS: Folic Acid/Vitamin B Comp W-C 1 Capsule 1 CAP PO (07:47)
[2021-08-31] MEDS: buPROPion (XL) 150 MG TABLET.XL PO (07:47)
[2021-08-31] MEDS: Heparin Injection (Vial) 5,000 UNIT/ML VIAL 5000 UNIT SC ×2 (07:47→21:37)
--- NOTE | 2021-08-31 10:35 | PCM.PN.BLA ---
Progress Note Afebrile VSS-systolic blood pressure is consistently above goal. The diastolic blood pressure is within normal limits. Maintaining appropriate oxygen saturation on RA Oral intake is good Discussed with nursing - no problems that need addressed Reviewed the PT/OT/ST notes - Doing well in therapy Medication list reviewed. she got her Booster shot yesterday. The UA done yesterday for urinary frequency and urgency showed 0 WBCs and 0 RBCs per high-power field. There was no bacteria and it was nitrite negative. Cheryl tells me that she is sleeping better. She gets up to urinate at night but, she can go back to sleep. She is feeling less anxious. No CP, calf pain, SOB, N/V, lightheadedness or dysuria. Pain is adequately controlled. She is doing well in therapy. she tells me that she has never been on Vaginal estrogen for urinary frequency and urge incontinence. She has also never seen a urologist. Even with the Gemtesa she has urgency and frequency. Physical Exam Const alert, oriented x3 and no apparent distress Constitutional Narrative: Sitting in the recliner, just finished PT. She is visibly less anxious now. General Appearance: cooperative, comfortable, well kempt and well developed Resp normal respiratory effort and clear to auscultation bilaterally Effort and Inspection: able to speak in complete sentences Cardio regular rate, regular rhythm, no murmurs and no gallops Cardio Narrative: no ectopy GI normal to inspection, nondistended, normoactive bowel sounds, soft to palpation and non-tender Extremity no calf tenderness Skin General Skin Exam: no breakdown Rashes: no rashes Neuro no focal motor deficits Psych mental status grossly normal, thought process normal and cooperative Psych Narrative: less anxious now and sleeping better. Assessment & Plan Assessment/Plan (1) Aftercare following explantation of knee joint prosthesis: (2) Prosthetic joint infection: (3) Physical debility: (4) Urge urinary incontinence: PLAN: 1. continue therapy 2. Start Estrace vaginal cream daily X 7 and then 1-2 times a week. I mentioned that she may want to follow up with Dr. Klein following DC if she is still having urge incontinence. May need to be referred for pelvic floor strengthening 3. Continue Vancomycin 4. Weekly lab ordered for tomorrow. Visit Charges Inpatient E&M: 89734 Subs Hosp L2
[2021-08-31] MEDS: Ferrous Sulfate 325 MG Tablet PO (12:30)
[2021-08-31] MEDS: Ascorbic Acid 500 MG Tablet 1000 MG PO (12:30)
[2021-08-31 14:00] VITALS: BP 157/74; PULSE 102
--- NOTE | 2021-08-31 15:42 | CASEMGMT ---
Social Work Met with pt. Explained Medicare approved 13 days with DC 09/07. TCU accepted pt. Pt agreeable. Will ReTeam next week. Lin Arias, INDUSTRIAL [employer]MI[employer]Y TEACHER [employer] MANAGER
[2021-08-31 17:44] VITALS: BP 154/65
[2021-08-31 19:30] VITALS: BP 155/64; PULSE 93; RESP 18; TEMP 36.6; O2SAT 97
[2021-08-31 19:37] VITALS: PULSE 94; RESP 24
[2021-08-31] MEDS: 0.9% Saline Lock 10 ML Syringe IV ×2 (19:53→22:16)
[2021-08-31] MEDS: Estrogens,Conj. 1 Tube 0.625 DOSE VAGINAL (20:15)
[2021-08-31] MEDS: clonazePAM 0.5 MG Tablet PO (20:17)
[2021-08-31] MEDS: Rosuvastatin Calcium 5 MG Tablet PO (21:37)
[2021-08-31] MEDS: Senna/Docusate Sodium 1 Tablet 2 TABLET PO (21:37)
[2021-09-01 06:00] VITALS: BP 159/71; PULSE 96; RESP 16; TEMP 37.3; O2SAT 93
[2021-09-01] MEDS: busPIRone 5 MG Tablet PO ×3 (06:15→20:04)
[2021-09-01] MEDS: Albuterol 2.5 MG/3 ML VIAL.NEB. INHALATION ×2 (07:15→18:36)
[2021-09-01 07:24] VITALS: PULSE 95; RESP 20
[2021-09-01] MEDS: Aspirin 81 MG TAB.CHEW PO (08:10)
[2021-09-01] MEDS: Folic Acid/Vitamin B Comp W-C 1 Capsule 1 CAP PO (08:10)
[2021-09-01] MEDS: Meloxicam 7.5 MG Tablet PO (08:10)
[2021-09-01] MEDS: Heparin Injection (Vial) 5,000 UNIT/ML VIAL 5000 UNIT SC ×2 (08:11→20:05)
[2021-09-01] MEDS: Pantoprazole Sodium 40 MG Tablet PO (08:11)
[2021-09-01] MEDS: buPROPion (XL) 150 MG TABLET.XL PO (08:14)
--- NOTE | 2021-09-01 09:32 | PCM.PN.BLA ---
Progress Note Afebrile VSS - systolic BP is mildly elevated. She is not on an antihypertensive. Maintaining appropriate oxygen saturation on RA Oral intake is good Discussed with nursing - no problems that need addressed Reviewed the PT/OT notes Medication list reviewed. All lab was personally reviewed. White blood cell count is within normal limits. Hemoglobin is stable at 8.5. Platelets are within normal limits. Percentage neutrophils he is down to 78% and there is a normal immature granulocyte percentage. Sed rate is down to 58 from 100 last week. BMP is within normal limits. CRP is down to 34 from 81 last week. She is tired and still not sleeping as well as she was prior to the explant. She is getting up multiple times at night to urinate. UA is negative for infection. She is taking the Gemtesa that she was taking at home for frequency and urgency. She was started on Premarin vaginal cream yesterday. I suspect the frequent awakenings at night are related to anxiety. She denies CP, SOB, Calf pain, lightheadedness, N/V, dysuria. Physical Exam Const alert, oriented x3 and no apparent distress Constitutional Narrative: Sitting in the recliner at the bedside. She looks pale and fatigued today. Less positive attitude today. General Appearance: cooperative Resp normal respiratory effort and clear to auscultation bilaterally Effort and Inspection: able to speak in complete sentences Cardio regular rate, regular rhythm, S1 normal heart sound, S2 normal heart sound, no murmurs and no gallops GI normal to inspection, nondistended, normoactive bowel sounds, soft to palpation and non-tender Extremity no calf tenderness Extremity Narrative: The incision is covered by a silver impregnated dressing and it is to remain on for 7 days. It was applied on Saturday. Skin Rashes: no rashes Neuro oriented x3, CN's II-XII intact bilaterally and moves all extremities Psych mental status grossly normal, thought process normal and cooperative Psych Narrative: She seems a bit overwhelmed. She is constantly thinking about how she is going to manage at home with no assistance. Also thinking about her son who she has not seen in quite a while......he is fleeing from the law. Also seems a little down today. Appearance: appropriate and well kempt Assessment & Plan Assessment/Plan (1) Iron deficiency anemia: (2) Insomnia: (3) Aftercare following explantation of knee joint prosthesis: (4) Prosthetic joint infection: (5) Physical debility: (6) Anxiety and depression: PLAN: 1. Continue the Vanco with a stop date of 10/02/21 2. Increase the Klonopin at Bedtime for insomnia which I suspect is related to unrelieved anxiety if she is still not sleeping over the weekend. 3. May need to consider increasing the Wellbutrin for depression but, this may increase the anxiety. Could add an SSRI or Remeron at HS......Remeron may help with sleep and then we could wean the Klonopin. 4. Continue therapy and plan on transfer to TCU next to finish out the course of IV Vanco prior to going home. Visit Charges Inpatient E&M: 72169 Subs Hosp L2
[2021-09-01 10:35] VITALS: PULSE 95
[2021-09-01] MEDS: Metoprolol(XL)Succ 25 MG Tablet PO (10:35)
[2021-09-01 11:09] LABS: Absolute Lymphocyte Count 0.67 X10^3/uL (0.83-4.51); Absolute Neutrophil Count 6.3 X10^3/uL (2.0-7.7); Basophil# 0.05 X10^3/uL; Basophil% 0.6 % (0-1); Eosinophil# 0.31 X10^3/uL; Eosinophils% 3.8 % (0-5); Hematocrit 27.3 % (37-47); Hemoglobin 8.5 g/dL (12.0-15.0); Lymphocyte # 0.67 X10^3/ul (0.83-4.51); Lymphocyte % 8.3 % (19-41); Mean Corp Hgb Conc 31.1 g/dL (32-36); Mean Corpuscular Hgb 25.3 pg (27.0-32.0); Mean Corpuscular Volume 81.3 fL (81-99); Mean Platelet Vol. 8.8 fl (6.2-12.0); Monocyte# 0.68 X10^3/uL; Monocyte% 8.4 % (0-10); NRBC Flagged by Analyzer 0 % (0-5); Neutrophil # 6.29 X10^3/uL (2.7-7.7); Neutrophil % 78.2 % (47-70); POSITIVE MORPHOLOGY YES; Platelet Count 439 K/mm3 (150-450); RBC Distribution Width CV 20.1 % (11.6-14.6); RBC Distribution Width SD 57.2 fl (35.1-43.9); Red Blood Count 3.36 M/mm3 (4.2-5.4); White Blood Count 8.1 K/mm3 (4.4-11.0)
[2021-09-01 11:18] LABS: Erythrocyte Sedimentation Rate 58 mm/hr (0-30)
[2021-09-01 11:19] LABS: Differential Indicated SCAN CRITERIA MET
[2021-09-01 11:21] LABS: Anion Gap 6 (5-15); BUN 14 mg/dL (7-18); BUN/Creat Ratio 15.6 RATIO (10-20); Calcium,Total 8.9 mg/dL (8.5-10.1); Chloride 105 mmol/L (98-107); EST Glomerular Filtration Rate 65 mL/min (>60); Est Glom Filt Rate - Afr Amer 78 mL/min (>60); Glucose 102 mg/dL (74-106); Sodium Level 139 mmol/L (136-145)
[2021-09-01 11:56] LABS: Anisocytosis 1+
[2021-09-01 11:57] LABS: Hypochromasia 1+
[2021-09-01] MEDS: Ferrous Sulfate 325 MG Tablet PO (12:33)
[2021-09-01] MEDS: Ascorbic Acid 500 MG Tablet 1000 MG PO (12:33)
[2021-09-01 18:36] VITALS: PULSE 86; RESP 16
[2021-09-01 19:24] VITALS: BP 147/59; PULSE 87; RESP 16; TEMP 36.9; O2SAT 97
[2021-09-01] MEDS: Estrogens,Conj. 1 Tube 0.625 DOSE VAGINAL (20:03)
[2021-09-01] MEDS: clonazePAM 0.5 MG Tablet PO (20:04)
[2021-09-01] MEDS: Rosuvastatin Calcium 5 MG Tablet PO (20:05)
[2021-09-01 20:19] LABS: Vancomycin, Trough Level 15.9 ug/mL (5.0-15.0)
[2021-09-01] MEDS: 0.9% Saline Lock 10 ML Syringe IV (20:42)
[2021-09-01 22:00] VITALS: PULSE 89; RESP 16; O2SAT 96
--- NOTE | 2021-09-01 23:02 | NURSING ---
Pharmacy called re: Vanc trough results of 15.9. Pharmacy confirmed giving existing dosage.
--- NOTE | 2021-09-01 23:04 | PCM.RX.CS ---
Consult Pharmacy has been consulted to manage selected antiobiotic: Vancomycin Type of Consult: Follow-up Suspected Infection: Other Prior Doses of Antibiotics Received/Current Regimen: Medications Vancomycin HCl 1,500 mg/ (Sodium Chloride) 530 mls @ 250 mls/hr IV Q24H ALBA Stop: 10/02/21 20:01 Last Admin: 09/01/21 22:49 Dose: Infused Labs: Sodium 139 mmol/L (136-145) 09/01/21 10:45 Potassium 4.0 mmol/L (3.5-5.1) 09/01/21 10:45 Chloride 105 mmol/L (98-107) 09/01/21 10:45 Carbon Dioxide 28.0 mmol/L (21.0-32.0) 09/01/21 10:45 Anion Gap 6 (5-15) 09/01/21 10:45 BUN 14 mg/dL (7-18) 09/01/21 10:45 Creatinine 0.90 mg/dL (0.55-1.02) 09/01/21 10:45 Est GFR (MDRD) Af Amer 78 mL/min (>60) 09/01/21 10:45 Est GFR (MDRD) Non-Af 65 mL/min (>60) 09/01/21 10:45 BUN/Creatinine Ratio 15.6 RATIO (10-20) 09/01/21 10:45 Glucose 102 mg/dL (74-106) 09/01/21 10:45 Vancomycin Trough 15.9 ug/mL (5.0-15.0) H 09/01/21 19:26 Weight used for dosin.2 kg Estimated Creatinine Clearance: 49 Goal Trough: 10-15 mcg/mL Pharmacy Plan for Drug Dosing: Vancomycin trough draw at 23? hrs post dose was 15.9, just above the target range of 10-15. Will continue same dosing and re-draw trough 09/05/21. Vanco is scheduled to be continued through 10/02/21. Pharmacy Service will continue to monitor and adjust dosing as required. Follow-Up Labs: Trough Vancomycin Labs to be done on [date and time ordered]: 09/05/21 @1930
[2021-09-02] MEDS: busPIRone 5 MG Tablet PO ×3 (06:46→20:10)
[2021-09-02] MEDS: Aspirin 81 MG TAB.CHEW PO (07:34)
[2021-09-02] MEDS: Meloxicam 7.5 MG Tablet PO (07:35)
[2021-09-02] MEDS: Pantoprazole Sodium 40 MG Tablet PO (07:35)
[2021-09-02] MEDS: Folic Acid/Vitamin B Comp W-C 1 Capsule 1 CAP PO (07:35)
[2021-09-02] MEDS: Heparin Injection (Vial) 5,000 UNIT/ML VIAL 5000 UNIT SC ×2 (07:35→20:10)
[2021-09-02 07:37] VITALS: PULSE 70
[2021-09-02] MEDS: Metoprolol(XL)Succ 25 MG Tablet PO (07:37)
[2021-09-02] MEDS: buPROPion (XL) 150 MG TABLET.XL PO (07:37)
[2021-09-02 08:00] VITALS: BP 133/80; PULSE 84; RESP 16; TEMP 36.3; O2SAT 95
[2021-09-02] MEDS: Ascorbic Acid 500 MG Tablet 1000 MG PO (12:08)
[2021-09-02] MEDS: Ferrous Sulfate 325 MG Tablet PO (12:08)
[2021-09-02 14:00] VITALS: PULSE 82; RESP 18; O2SAT 96
[2021-09-02] MEDS: Albuterol 2.5 MG/3 ML VIAL.NEB. INHALATION ×2 (14:00→19:40)
[2021-09-02 19:30] VITALS: BP 150/78; PULSE 77; RESP 16; TEMP 36.6; O2SAT 97
[2021-09-02 19:40] VITALS: PULSE 84; RESP 16
[2021-09-02] MEDS: Estrogens,Conj. 1 Tube 0.625 DOSE VAGINAL (20:05)
[2021-09-02] MEDS: clonazePAM 0.5 MG Tablet PO (20:09)
[2021-09-02] MEDS: Rosuvastatin Calcium 5 MG Tablet PO (20:10)
[2021-09-02] MEDS: 0.9% Saline Lock 10 ML Syringe IV (20:21)
[2021-09-03] MEDS: busPIRone 5 MG Tablet PO ×3 (05:44→20:17)
[2021-09-03 08:00] VITALS: BP 156/55; PULSE 89; RESP 18; TEMP 37.1; O2SAT 97
[2021-09-03] MEDS: Folic Acid/Vitamin B Comp W-C 1 Capsule 1 CAP PO (08:06)
[2021-09-03] MEDS: Meloxicam 7.5 MG Tablet PO (08:06)
[2021-09-03] MEDS: Pantoprazole Sodium 40 MG Tablet PO (08:06)
[2021-09-03] MEDS: Aspirin 81 MG TAB.CHEW PO (08:06)
[2021-09-03 08:07] VITALS: PULSE 77
[2021-09-03] MEDS: Metoprolol(XL)Succ 25 MG Tablet PO (08:07)
[2021-09-03] MEDS: buPROPion (XL) 150 MG TABLET.XL PO (08:08)
[2021-09-03] MEDS: Heparin Injection (Vial) 5,000 UNIT/ML VIAL 5000 UNIT SC ×2 (11:28→20:17)
[2021-09-03] MEDS: Ferrous Sulfate 325 MG Tablet PO (12:36)
[2021-09-03] MEDS: Ascorbic Acid 500 MG Tablet 1000 MG PO (12:36)
[2021-09-03] MEDS: 0.9% Saline Lock 10 ML Syringe IV ×3 (17:58→22:53)
[2021-09-03 19:30] VITALS: BP 131/60; PULSE 78; RESP 18; TEMP 37; O2SAT 97
[2021-09-03] MEDS: Albuterol 2.5 MG/3 ML VIAL.NEB. INHALATION (19:34)
[2021-09-03 19:35] VITALS: PULSE 80; RESP 18; O2SAT 97
[2021-09-03] MEDS: clonazePAM 0.5 MG Tablet PO (20:17)
[2021-09-03] MEDS: Rosuvastatin Calcium 5 MG Tablet PO (20:17)
[2021-09-03] MEDS: Estrogens,Conj. 1 Tube 0.625 DOSE VAGINAL (20:18)
[2021-09-04 06:44] VITALS: PULSE 76; RESP 18
[2021-09-04] MEDS: Albuterol 2.5 MG/3 ML VIAL.NEB. INHALATION (06:44)
[2021-09-04] MEDS: busPIRone 5 MG Tablet PO ×3 (06:49→20:59)
[2021-09-04 07:37] VITALS: BP 150/54; PULSE 76; RESP 16; TEMP 36.7; O2SAT 98
[2021-09-04 07:54] VITALS: PULSE 76
[2021-09-04] MEDS: Aspirin 81 MG TAB.CHEW PO (07:54)
[2021-09-04] MEDS: Folic Acid/Vitamin B Comp W-C 1 Capsule 1 CAP PO (07:54)
[2021-09-04] MEDS: Pantoprazole Sodium 40 MG Tablet PO (07:54)
[2021-09-04] MEDS: Meloxicam 7.5 MG Tablet PO (07:54)
[2021-09-04] MEDS: Metoprolol(XL)Succ 25 MG Tablet PO ×2 (07:54→20:59)
[2021-09-04] MEDS: Heparin Injection (Vial) 5,000 UNIT/ML VIAL 5000 UNIT SC ×2 (07:55→20:59)
[2021-09-04] MEDS: buPROPion (XL) 150 MG TABLET.XL PO (07:55)
--- NOTE | 2021-09-04 10:33 | PCM.PN.BLA ---
Progress Note Cheryl was seen on team rounds today. Her sister Marlin was present in the room for rounds. All questions were answered to their satisfaction. Afebrile VSS-systolic blood pressures are consistently high. She was started on metoprolol XL 25 mg daily on Saturday. Heart rate is within normal limits. Maintaining appropriate oxygen saturation on RA Oral intake is good Discussed with nursing - no problems that need addressed Reviewed the PT/OT notes Medication list reviewed. She tells me she slept all night last night without waking up to urinate. She feels less anxious and is in a good mood. She is very cooperative with therapy. She denies pain with ambulation. She denies calf pain, chest pain, shortness of breath, palpitations, sore throat, loss of taste or smell, nausea/vomiting/diarrhea. Physical Exam Const alert, oriented x3, no apparent distress and healthy appearing General Appearance: cooperative, comfortable, well kempt and well developed Eyes conjunctivae normal and no scleral icterus Resp normal respiratory effort and clear to auscultation bilaterally Effort and Inspection: able to speak in complete sentences Cardio regular rate, regular rhythm and no murmurs GI normal to inspection, nondistended, normoactive bowel sounds, soft to palpation and non-tender Extremity no calf tenderness Extremity Narrative: incision is intact without any purulent DC. No erythema of the knee and no increased warmth to touch. She denies pain with palpation. Skin General Skin Exam: no breakdown Rashes: no rashes Neuro oriented x3, CN's II-XII intact bilaterally and moves all extremities Psych mental status grossly normal, thought process normal, cooperative and affect normal Psych Narrative: less anxious and last night she was able to sleep all night long without getting up to go to the Appearance: appropriate Assessment & Plan Assessment/Plan (1) Anxiety and depression: (2) Iron deficiency anemia: (3) Insomnia: (4) CAD (coronary artery disease): (5) Physical debility: (6) HTN (hypertension): PLAN: 1. change the Metoprolol XL to 25mg BID 2. Continue therapy 3. Will go to TCU on to finish out the course of IV Vancomycin. 4. Continue the Klonopin - she is sleeping well now and she is much less anxious 5. Repeat lab weekly on Fridays until she is off the Vanco. Visit Charges Inpatient E&M: 81492 Subs Hosp L2
[2021-09-04] MEDS: Ascorbic Acid 500 MG Tablet 1000 MG PO (12:30)
[2021-09-04] MEDS: Ferrous Sulfate 325 MG Tablet PO (12:30)
--- NOTE | 2021-09-04 14:16 | CASEMGMT ---
Social Work IDT met with patient and sister for Team meeting. Discussed patient's progress in PT/OT and nursing. Pt is progressing well. Pt is discharging 09/07 to TCU under her Medicare benefit for continued therapy and IV ATB therapy. Plan: DC to TCU 09/07, skilled SKYLER UribeW
[2021-09-04 18:58] VITALS: BP 145/62; PULSE 97; RESP 18; TEMP 37.1; O2SAT 97
[2021-09-04] MEDS: 0.9% Saline Lock 10 ML Syringe IV (20:21)
[2021-09-04] MEDS: Estrogens,Conj. 1 Tube 0.625 DOSE VAGINAL (20:50)
[2021-09-04] MEDS: Saliva Substitute 237 ML BOTTLE 15 ML MUCOUS MEM (20:52)
[2021-09-04] MEDS: Senna/Docusate Sodium 1 Tablet 2 TABLET PO (20:58)
[2021-09-04 20:59] VITALS: PULSE 73
[2021-09-04] MEDS: clonazePAM 0.5 MG Tablet PO (20:59)
[2021-09-04] MEDS: Rosuvastatin Calcium 5 MG Tablet PO (20:59)
--- NOTE | 2021-09-04 21:40 | NURSING ---
Silverlone dressing changed this hs. No drainage. Pt tolerated well.
[2021-09-04 22:00] VITALS: PULSE 73; RESP 16; O2SAT 96
[2021-09-05] MEDS: busPIRone 5 MG Tablet PO ×3 (05:25→20:51)
[2021-09-05 07:50] VITALS: BP 144/69; PULSE 83; RESP 16; TEMP 36.3; O2SAT 97
[2021-09-05] MEDS: Pantoprazole Sodium 40 MG Tablet PO (08:06)
[2021-09-05] MEDS: Aspirin 81 MG TAB.CHEW PO (08:06)
[2021-09-05] MEDS: Meloxicam 7.5 MG Tablet PO (08:06)
[2021-09-05] MEDS: Folic Acid/Vitamin B Comp W-C 1 Capsule 1 CAP PO (08:06)
[2021-09-05 08:07] VITALS: BP 144/69; PULSE 83
[2021-09-05] MEDS: Metoprolol(XL)Succ 25 MG Tablet PO ×2 (08:07→20:52)
[2021-09-05] MEDS: buPROPion (XL) 150 MG TABLET.XL PO (08:07)
--- NOTE | 2021-09-05 10:01 | PCM.PN.BLA ---
Progress Note Afebrile VSS-blood pressure this a.m. is 144/68. The metoprolol dose yesterday was increased to metoprolol XL 25 mg twice daily. Maintaining appropriate oxygen saturation on RA Oral intake is good Discussed with nursing - no problems that need addressed Reviewed the PT/OT notes Medication list reviewed. The Vanco did not finish last night until 12:30 AM .......she was able to sleep after that without getting up to urinate. Denies pain, anxiety, lightheadedness, SOB. she is very upbeat and talkative. smiling Physical Exam Resp normal respiratory effort and clear to auscultation bilaterally Cardio regular rate, regular rhythm, no murmurs, no rub and no gallops Extremity no calf tenderness and no pedal edema Skin General Skin Exam: no breakdown Rashes: no rashes Assessment & Plan Assessment/Plan (1) HTN (hypertension): (2) Anxiety and depression: (3) Prosthetic joint infection: (4) Physical debility: (5) Hypophosphatemia: PLAN: Continue current medications and add a Vitamin D supplement Continue therapy Transfer to TCU . Visit Charges Inpatient E&M: 17843 Subs Hosp L1
[2021-09-05] MEDS: Ascorbic Acid 500 MG Tablet 1000 MG PO (11:05)
[2021-09-05] MEDS: Ferrous Sulfate 325 MG Tablet PO (11:05)
[2021-09-05] MEDS: Heparin Injection (Vial) 5,000 UNIT/ML VIAL 5000 UNIT SC ×2 (11:06→20:51)
[2021-09-05 19:29] VITALS: BP 137/61; PULSE 88; RESP 18; TEMP 36.8; O2SAT 97
[2021-09-05] MEDS: Saliva Substitute 237 ML BOTTLE 15 ML MUCOUS MEM (19:54)
[2021-09-05] MEDS: Estrogens,Conj. 1 Tube 0.625 DOSE VAGINAL (19:54)
[2021-09-05 20:15] VITALS: PULSE 71; RESP 16; O2SAT 97
[2021-09-05 20:22] LABS: Vancomycin, Trough Level 17.2 ug/mL (5.0-15.0)
[2021-09-05] MEDS: clonazePAM 0.5 MG Tablet PO (20:32)
--- NOTE | 2021-09-05 20:38 | PCM.RX.CS ---
Consult Pharmacy has been consulted to manage selected antiobiotic: Vancomycin Type of Consult: Follow-up Labs: Sodium 139 mmol/L (136-145) 09/01/21 10:45 Potassium 4.0 mmol/L (3.5-5.1) 09/01/21 10:45 Chloride 105 mmol/L (98-107) 09/01/21 10:45 Carbon Dioxide 28.0 mmol/L (21.0-32.0) 09/01/21 10:45 Anion Gap 6 (5-15) 09/01/21 10:45 BUN 14 mg/dL (7-18) 09/01/21 10:45 Creatinine 0.90 mg/dL (0.55-1.02) 09/01/21 10:45 Est GFR (MDRD) Af Amer 78 mL/min (>60) 09/01/21 10:45 Est GFR (MDRD) Non-Af 65 mL/min (>60) 09/01/21 10:45 BUN/Creatinine Ratio 15.6 RATIO (10-20) 09/01/21 10:45 Glucose 102 mg/dL (74-106) 09/01/21 10:45 Vancomycin Trough 17.2 ug/mL (5.0-15.0) H 09/05/21 19:27 Goal Trough: 10-15 mcg/mL Pharmacy Plan for Drug Dosing: VANCOMYCIN LEVEL RECEIVED Current Vancomycin Dose: 1500mg q24h (1999) Number of Doses Received: Vancomycin Level: 17.2 Hours Since Last Dose: 23.5 Renal Function: SrCr 0.90 Renal Function Trend: stable Lab/Micro: Vancomycin Plan/Comments: instructed nurse to administer 09/05/2021 dose even though trough was above goal trough of 10-15. recommend changing dose to 1250mg q24h. recommend starting dose on 09/07/21 at 0800 (skip 09/06/21 dose) to allow previous doses to clear. Pending Level: 09/09/21 at 0730 Pharmacy Service will continue to monitor and adjust dosing as required. Follow-Up Labs: Trough Vancomycin - 09/09/21 at 0730
[2021-09-05] MEDS: 0.9% Saline Lock 10 ML Syringe IV (20:46)
[2021-09-05] MEDS: Rosuvastatin Calcium 5 MG Tablet PO (20:50)
[2021-09-05] MEDS: Senna/Docusate Sodium 1 Tablet 2 TABLET PO (20:51)
[2021-09-05 20:52] VITALS: PULSE 70
[2021-09-06] MEDS: busPIRone 5 MG Tablet PO ×3 (05:13→20:07)
[2021-09-06 07:25] VITALS: BP 131/59; PULSE 72; RESP 16; TEMP 36.4; O2SAT 97
[2021-09-06 07:56] VITALS: BP 131/59; PULSE 72
[2021-09-06] MEDS: Metoprolol(XL)Succ 25 MG Tablet PO ×2 (07:56→20:11)
[2021-09-06] MEDS: Cholecalciferol (VIT D3) 25 MCG TABLET (1,000 UNITS) 50 MCG PO (07:56)
[2021-09-06] MEDS: Pantoprazole Sodium 40 MG Tablet PO (07:57)
[2021-09-06] MEDS: Aspirin 81 MG TAB.CHEW PO (07:57)
[2021-09-06] MEDS: Meloxicam 7.5 MG Tablet PO (07:57)
[2021-09-06] MEDS: Folic Acid/Vitamin B Comp W-C 1 Capsule 1 CAP PO (07:57)
[2021-09-06] MEDS: Heparin Injection (Vial) 5,000 UNIT/ML VIAL 5000 UNIT SC ×2 (07:57→20:10)
[2021-09-06] MEDS: buPROPion (XL) 150 MG TABLET.XL PO (07:58)
[2021-09-06] MEDS: Ferrous Sulfate 325 MG Tablet PO (12:02)
[2021-09-06] MEDS: Ascorbic Acid 500 MG Tablet 1000 MG PO (12:02)
--- NOTE | 2021-09-06 17:45 | PCM.TXEXTCAR ---
Diet 08/25/21 20:02 Diet: Cardiac - Heart Healthy Routine Orders/Code Status Enema Type: Fleetz Enema Frequency: Daily PRN Suppository Type: Dulcolax 10mg Suppository Frequency: Daily PRN Keep PO Greater than or Equal to (%): 90 Routine Lab Work: CBC (weekly on Fridays through 10/02/21), BMP (Weekly on Fridays through 10/02/21) and - (ESR and CRP weekly on Fridays through 10/02/21) Code Status: DNRCC-A (with intubation) Wound(s) LAC: Wound Type: IV wound RAC: Wound Type: IV wound Left knee: Wound Type: Surgical Incision (Left knee) Dressing Change: Silverlon dressing Therapies Weight Bearing: Weight bearing as tolerated Extremity Affected:: Left Lower Physical Therapy: Eval and Treat Occupational Therapy: Eval and Treat Problem/Diagnosis (1) Physical debility: Status: Acute (2) Prosthetic joint infection: Status: Acute (3) Anxiety and depression: Status: Acute (4) HTN (hypertension): Status: Chronic (5) Hypophosphatemia: Status: Resolved Allergies/Procedures Done in Hospital Allergies Penicillins [PCN] Allergy (Verified 04/21/21 10:00) red/rash at injection site promethazine HCl [From Phenergan] Allergy (Verified 04/21/21 10:00) Unknown [id number] Reductase Inhibitor [Extswbs-Dhe-Tie Reductase Inhibitor] Allergy (Verified 04/21/21 10:00) Other Sulfa (Sulfonamide Antibiotics) Allergy (Verified 04/21/21 10:00) Swelling Procedures: None and - (She had explant of prior LTK joint and placement of antibiotic spacer 08/21/[address] [facility] by Dr Calderon) Type of Care/Length of Stay Estimated LOS: More Than 30 Days Type of Care Needed: Skilled Rehab Potential: Good Prognosis: Good Additional Orders/Day of Discharge H&P will serve as current which was dated: 08/25/21 Day of Discharge: 09/07/21 Dietary and Speech Recommendations Dietitian Recommendations/Changes: Will continue Cardiac diet and chocolate ensure compact 3x/day with medpass as currently ordered. 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 Attending Provider: Joslyn Alemna Primary Care Provider: Layla Bellamy Discharge Orders/Prescriptions Prescriptions: No Action lansoprazole [Prevacid] 30 MG capsule 30 mg PO DAILY Qty: 0 RF: 0 folic acid 1 MG tablet 1 mg PO QHS Qty: 0 RF: 0 albuterol sulfate [ProAir HFA] 1 PUFF inhaler 2 puff inhalation Q6H PRN PRN (Reason: Sob &/Or Wheezing) Qty: 0 RF: 0 Gemtesa 75 mg tablet 75 mg PO DAILY RF: 0 Referrals / Follow Up: [facility] [Other] - 09/07/21 1:00 pm Lab Work [Other] (2-9 @ 1030 Have lab work completed prior to appt with Dr Kwan ) Yash Kwan DO [STAFF PHYSICIAN] - 10/04/21 10:50 am (Bring insurance card and list of medications) Layla Bellamy PA [Primary Care Provider] - 09/21/21 9:40 am Disposition Disposition (needs filled in before D/C Order can be placed): [facility]irement Facility
--- NOTE | 2021-09-06 18:10 | PCM.DC.SUM ---
Providers Date of Admission: 08/25/21 Date of Discharge: 09/07/21 Primary Care Physician: BILLY Alvarez Reason For Visit: LEFT PROSTHETIC JOINT INFECTION Diagnosis Discharge Diagnosis (1) Physical debility: Status: Acute Code(s): R53.81 - Other malaise (2) Prosthetic joint infection: Status: Acute Code(s): T84.50XA - Infection and inflammatory reaction due to unspecified internal joint prosthesis, initial encounter (3) Aftercare following explantation of knee joint prosthesis: Status: Acute Code(s): Z47.33 - Aftercare following explantation of knee joint prosthesis (4) Hypophosphatemia: Status: Resolved Code(s): E83.39 - Other disorders of phosphorus metabolism (5) Anxiety and depression: Status: Chronic Code(s): F41.9 - Anxiety disorder, unspecified; F32.A - Depression, unspecified (6) HTN (hypertension): Status: Chronic Code(s): I10 - Essential (primary) hypertension (7) Iron deficiency anemia: Status: Chronic Code(s): D50.9 - Iron deficiency anemia, unspecified (8) Insomnia: Status: Acute Code(s): G47.00 - Insomnia, unspecified (9) Grade I diastolic dysfunction: Status: Chronic Code(s): I51.89 - Other ill-defined heart diseases (10) Intraductal papillary mucinous neoplasm: Status: Chronic Code(s): D49.0 - Neoplasm of unspecified behavior of digestive system (11) CAD (coronary artery disease): Status: Chronic Code(s): I25.10 - Atherosclerotic heart disease of [place] coronary artery without angina pectoris (12) RAVIN (obstructive sleep apnea): Status: Chronic Code(s): G47.33 - Obstructive sleep apnea (adult) (pediatric) Medications at Discharge Home Medications lansoprazole [Prevacid] 30 mg PO DAILY #0 10/07/13 acetaminophen 1,000 mg PO Q8H PRN PRN #0 tab 09/06/21 albuterol sulfate [Ventolin HFA] 2 puff INHALATION Q6H PRN PRN #0 g 09/06/21 benzocaine-menthol [Cepacol Sore Throat (inga-men)] 1 aissatou MUCOUS MEMBRANE Q2H PRN PRN #0 ea 09/06/21 bisacodyl 10 mg RI .PRN X 1 PRN #0 ea 09/06/21 fluticasone propionate 1 spray NASAL DAILY PRN #0 g 09/06/21 heparin, porcine (PF) 50 units IV UD PRN #0 ml 09/06/21 heparin, porcine (PF) 50 units IV UD PRN #0 ml 09/06/21 heparin, porcine (PF) 50 units IV UD PRN #0 ml 09/06/21 magnesium hydroxide 30 ml PO .PRN X 1 PRN #0 ml 09/06/21 ondansetron HCl 4 mg PO Q8H PRN PRN #0 tab 09/06/21 saliva substitute combo no.9 [Biotene Dry Mouth Oral Rinse] 15 ml MUCOUS MEMBRANE 5X/DAY PRN #0 ml 09/06/21 sodium chloride 0.9 % (flush) [BD PosiFlush Normal Saline 0.9] 10 - 40 ml IV UD PRN #0 ml 09/06/21 B complex with C 20-folic acid [Virt-Caps] 1 cap PO DAILY 09/07/21 Pharmacy Consult 1 ea NOTE X1 PRN 09/07/21 ascorbic acid (vitamin C) 1,000 mg PO LUNCH 09/07/21 aspirin 81 mg PO BREAKFAST 09/07/21 bupropion HCl 150 mg PO DAILY 09/07/21 buspirone 5 mg PO TID 09/07/21 cholecalciferol (vitamin D3) 50 mcg PO DAILY 09/07/21 clonazepam 0.5 mg PO 2100 09/07/21 conjugated estrogens [Premarin] 0.625 dose VAGINAL 199909/07/21 conjugated estrogens [Premarin] 0.625 dose VAGINAL Q7D 09/07/21 ferrous sulfate [FeroSul] 325 mg PO DAILY@1200 09/07/21 food supplemt, lactose-reduced [Ensure Compact] 118 ml PO TIDCM 09/07/21 heparin (porcine) 5,000 unit SUBCUT Q12 09/07/21 meloxicam 7.5 mg PO DAILY 09/07/21 metoprolol succinate 25 mg PO BID 09/07/21 pantoprazole 40 mg PO DAILY 09/07/21 rosuvastatin [Crestor] 5 mg PO QHS 09/07/21 sennosides-docusate sodium [Stool Softener-Stimulant Laxat] 2 tab PO BID 09/07/21 vibegron [Gemtesa] 75 mg PO DAILY 09/07/21 Hospital Course Operations None Procedures None Summary of Care Provided Minutes Spent on Discharge: 30 Hospital Course: MEREDITH MARRERO, is a 76 YO F with a PMH of 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 Calderon at [facility]. she had a PICC line placed and is onIV Vancomycin until 10/02/21. She was transferred to the in acute rehab unit at [facility] on 08/25/21 for 3 hours of PT/OT daily to restore function/dependence at or near her baseline. She has no help at home since her is in rehab at [facility] for CVA's and for a non-healing wound. Meredith has had long standing urinary urgency and frequency, tyler at night. She was on Gemtesa at admission to rehab but, she continued to have urgency and frequency at night. This is partly due to anxiety and insomnia. She has no children and she has no one to help her at home. She was started on Trazodone with some improvement with sleep and frequency at night. Vaginal Premarin was started and after 1 week she was able to sleep through the night. Anxiety was much better at DC to TCU. She did well in rehab and was ambulating without pain. She was transferred to TCU on 09/06/21 to finish out the 6 weeks of IV Vancomycin. She will follow up with ID and the orthopedic surgeon going forward. Physical Exam Const alert, oriented x3, no apparent distress and healthy appearing Constitutional Narrative: Sitting in the recliner at the bedside. Appears comfortable and she is making good eye contact. She is pleasant and talkative. General Appearance: cooperative, comfortable, well kempt, well developed and anxious Orientation / Consciousness: oriented to person, oriented to place and oriented to time HEENT normocephalic Eyes PERRL, EOMs intact bilaterally, conjunctivae normal and no scleral icterus Eyes Narrative: No scleral icterus and no conjunctival irritation. Neck No nuchal rigidity, no lymphadenopathy and no carotid bruits Carotids: normal carotid upstroke Chest Chest Narrative: She has an external groundwater monitoring technician present Chest: symmetrical chest wall rise Resp normal respiratory effort, normal air movement, no use of accessory muscles and clear to auscultation bilaterally Effort and Inspection: able to speak in complete sentences Cardio regular rate, regular rhythm, S1 normal heart sound, S2 normal heart sound, no murmurs, no rub and no gallops Cardio Narrative: no ectopy Jugular Venous Distention: Negative for JVD Peripheral Pulses: pulses 2+ throughout GI normal to inspection, nondistended, normoactive bowel sounds, soft to palpation, non-tender and non-distended GI Narrative: normal BS's and no guarding with palpation Back/Spine General Back: Negative for CVA tenderness Extremity normal capillary refill, no calf tenderness and no pedal edema Extremity Narrative: incision is intact without any purulent DC. No erythema of the knee and no increased warmth to touch. She denies pain with palpation. Still with some edema of the left knee but much less than at admission to rehab. General Extremity: edema; Negative for clubbing or cyanosis Skin no rashes or lesions noted Skin Narrative: The Left leg is in a immobilizer. General Skin Exam: no breakdown Rashes: no rashes Neuro oriented x3, CN's II-XII intact bilaterally, moves all extremities and no focal motor deficits Neuro Narrative: Decreased sensation Left foot Psych mental status grossly normal, thought process normal, cooperative, affect normal, speech normal, denies hallucinations, denies homicidal ideation and denies suicidal ideation Psych Narrative: less anxious and last night she was able to sleep all night long without getting up to go to the BR Appearance: grossly normal, appropriate and well kempt Activity / Motor Behavior: appropriate eye contact and fidgetting Mood & Affect: anxious Attention / Concentration: attention grossly intact Memory / Cognition: memory grossly intact Weight / BMI Weight Weight: 176 lb 5.917 oz Body Mass Index (BMI) 28.0 ABG / Lab / Microbiology Data Result Diagrams: 09/01/21 10:45 09/01/21 10:45 Laboratory: Laboratory Results - last 24 hr 09/05/21 19:27: Vancomycin Trough 17.2 H Microbiology: Microbiology 09/06/21 10:00 Nasal Secretion SARS-CoV-2 Antigen (Rapid) - Final D/C Instructions Please Follow Up With: Dr. Calderon Meaningful Use Info Meaningful Use Diagnoses (Choose all that apply): None applicable Discharge Plan Admission Admit Date/Time: 08/25/21 19:15 Primary Reason for Your Visit: MRSA L knee joint infection in pt with L TKR in December 2020 Attending Provider: Joslyn Aleman Primary Care Provider: Layla Bellamy Discharge Orders/Prescriptions Prescriptions: New acetaminophen 500 mg Tablet 1,000 mg PO Q8H PRN PRN (Reason: Pain Score 1-10) Qty: 0 RF: 0 bisacodyl 10 mg Suppository 10 mg RI .PRN X 1 PRN (Reason: Constipation) Qty: 0 RF: 0 sodium chloride 0.9 % (flush) [BD PosiFlush Normal Saline 0.9] Syringe 10 - 40 ml IV UD PRN (Reason: Open End PICC Flush) Qty: 0 RF: 0 Cepacol Sore Throat (inga-men) 15-3.6 mg Lozenge 1 aissatou mucous membrane Q2H PRN PRN (Reason: dry mouth/sore throat) Qty: 0 RF: 0 ondansetron HCl 8 mg Tablet 4 mg PO Q8H PRN PRN (Reason: Nausea/Vomiting) Qty: 0 RF: 0 magnesium hydroxide 400 mg/5 mL Suspension 30 ml PO .PRN X 1 PRN (Reason: Constipation) Qty: 0 RF: 0 fluticasone propionate 50 mcg/actuation [place],Suspension 1 spray NASAL DAILY PRN (Reason: CONGESTION) Qty: 0 RF: 0 heparin, porcine (PF) 10 unit/mL Syringe 50 units IV UD PRN (Reason: PICC Line Heparin Flush) Qty: 0 RF: 0 heparin, porcine (PF) 10 unit/mL Syringe 50 units IV UD PRN (Reason: PICC Line Heparin Flush) Qty: 0 RF: 0 heparin, porcine (PF) 10 unit/mL Syringe 50 units IV UD PRN (Reason: PICC Line Heparin Flush) Qty: 0 RF: 0 Biotene Dry Mouth Oral Rinse Mouthwash 15 ml mucous membrane 5X/DAY PRN (Reason: Dry Mouth) Qty: 0 RF: 0 albuterol sulfate [Ventolin HFA] 90 mcg/actuation Hfa Aerosol Inhaler 2 puff inhalation Q6H PRN PRN (Reason: Sob &/Or Wheezing) Qty: 0 RF: 0 Held lansoprazole [Prevacid] 30 MG capsule 30 mg PO DAILY Qty: 0 RF: 0 Hold Instructions: She can resume Prevacid when she is discharged from TCU. While in TCU she will continue Protonix Discontinued folic acid 1 MG tablet 1 mg PO QHS Qty: 0 RF: 0 albuterol sulfate [ProAir HFA] 1 PUFF inhaler 2 puff inhalation Q6H PRN PRN (Reason: Sob &/Or Wheezing) Qty: 0 RF: 0 Gemtesa 75 mg tablet 75 mg PO DAILY RF: 0 No Action buspirone 5 mg tablet 5 mg PO TID RF: 0 clonazepam 0.5 mg tablet 0.5 mg PO 2100 RF: 0 sennosides-docusate sodium [Stool Softener-Stimulant Laxat] 8.6-50 mg tablet 2 tab PO BID RF: 0 meloxicam 7.5 mg tablet 7.5 mg PO DAILY RF: 0 ascorbic acid (vitamin C) 500 mg tablet 1,000 mg PO LUNCH RF: 0 pantoprazole 40 mg tablet,delayed release (DR/EC) 40 mg PO DAILY RF: 0 ferrous sulfate [FeroSul] 325 mg (65 mg iron) tablet 325 mg PO DAILY@1200 RF: 0 Premarin 0.625 mg/gram cream 0.625 dose vaginal 2000 RF: 0 Premarin 0.625 mg/gram cream 0.625 dose vaginal Q7D RF: 0 aspirin 81 mg tablet,chewable 81 mg PO BREAKFAST RF: 0 metoprolol succinate 25 mg tablet extended release 24 hr 25 mg PO BID RF: 0 Virt-Caps 1 mg capsule 1 cap PO DAILY RF: 0 heparin (porcine) 5,000 unit/mL solution 5,000 unit subcut Q12 RF: 0 Ensure Compact Liquid 118 ml PO TIDCM RF: 0 rosuvastatin [Crestor] 5 mg tablet 5 mg PO QHS RF: 0 bupropion HCl 150 mg tablet extended release 24 hr 150 mg PO DAILY RF: 0 cholecalciferol (vitamin D3) 25 mcg (1,000 unit) tablet 50 mcg PO DAILY RF: 0 Gemtesa 75 mg tablet 75 mg PO DAILY RF: 0 Pharmacy Consult 1 ea NOTE X1 PRN (Reason: Check With primary) RF: 0 Referrals / Follow Up: [facility] [Other] - 09/07/21 1:00 pm Lab Work [Other] (2-9 @ 1030 Have lab work completed prior to appt with Dr Kwan ) Yash Kwan DO [STAFF PHYSICIAN] - 10/04/21 10:50 am (Bring insurance card and list of medications) Layla Bellamy PA [Primary Care Provider] - 09/21/21 9:40 am Disposition Disposition (needs filled in before D/C Order can be placed): [facility] Charges/Coding Visit Charges Inpatient E&M: 30124 Disch Hosp
[2021-09-06 19:24] VITALS: BP 148/76; PULSE 77; RESP 17; TEMP 36.7; O2SAT 96
[2021-09-06] MEDS: Estrogens,Conj. 1 Tube 0.625 DOSE VAGINAL (19:56)
[2021-09-06] MEDS: Saliva Substitute 237 ML BOTTLE 15 ML MUCOUS MEM (19:59)
[2021-09-06] MEDS: clonazePAM 0.5 MG Tablet PO (20:06)
[2021-09-06] MEDS: Rosuvastatin Calcium 5 MG Tablet PO (20:09)
[2021-09-06 20:11] VITALS: PULSE 74
[2021-09-06] MEDS: 0.9% Saline Lock 10 ML Syringe IV (20:29)
[2021-09-06 22:00] VITALS: PULSE 77; RESP 16; O2SAT 96
[2021-09-07] MEDS: busPIRone 5 MG Tablet PO (05:55)
[2021-09-07] MEDS: 0.9% Saline Lock 10 ML Syringe IV (07:01)
[2021-09-07 07:35] VITALS: BP 142/55; PULSE 70; RESP 16; TEMP 36.7; O2SAT 95
[2021-09-07] MEDS: Aspirin 81 MG TAB.CHEW PO (08:09)
[2021-09-07 08:10] VITALS: PULSE 70
[2021-09-07] MEDS: Folic Acid/Vitamin B Comp W-C 1 Capsule 1 CAP PO (08:10)
[2021-09-07] MEDS: Heparin Injection (Vial) 5,000 UNIT/ML VIAL 5000 UNIT SC (08:10)
[2021-09-07] MEDS: Metoprolol(XL)Succ 25 MG Tablet PO (08:10)
[2021-09-07] MEDS: Meloxicam 7.5 MG Tablet PO (08:10)
[2021-09-07] MEDS: Pantoprazole Sodium 40 MG Tablet PO (08:10)
[2021-09-07] MEDS: buPROPion (XL) 150 MG TABLET.XL PO (08:11)
[2021-09-07] MEDS: Cholecalciferol (VIT D3) 25 MCG TABLET (1,000 UNITS) 50 MCG PO (08:11)
== END 2021-09-07 09:52 | DRG 950 ==
PROVIDERS: Hospitalist; Admitting Provider Internal Medicine; PCP Physician Assistant; Visit Provider Internal Medicine
DX: T84.54XD Infection and inflammatory reaction due to internal left knee prosthesis, subsequent encounter (principal); E83.39 Other disorders of phosphorus metabolism; G47.33 Obstructive sleep apnea (adult) (pediatric); D50.9 Iron deficiency anemia, unspecified; I25.10 Atherosclerotic heart disease of native coronary artery without angina pectoris; E78.5 Hyperlipidemia, unspecified; B95.62 Methicillin resistant Staphylococcus aureus infection as the cause of diseases classified elsewhere; I10 Essential (primary) hypertension; J45.909 Unspecified asthma, uncomplicated; K21.9 Gastro-esophageal reflux disease without esophagitis; K58.9 Irritable bowel syndrome, unspecified; Y79.2 Prosthetic and other implants, materials and accessory orthopedic devices associated with adverse incidents; Z23 Encounter for immunization; Z79.899 Other long term (current) drug therapy; N39.41 Urge incontinence; F41.1 Generalized anxiety disorder
CPT/HCPCS: 0064A; 36415; 80048; 80053; 80202; 81001; 82728; 83540; 83550; 83735; 84100; 85025; 85652; 86140; 87426; 91306; 94640; 97110; 97116; 97162; 97165; 97530; 97535; J7040; J7050; A4216

== ENCOUNTER 2021-09-07 10:12 | Inpatient (IN) | payer MEDICARE, BC, SELFPAY ==
[2021-09-07 10:44] VITALS: BP 143/77; PULSE 71; RESP 17; TEMP 35.7; O2SAT 93
[2021-09-07 11:37] VITALS: BMI 27.4
--- NOTE | 2021-09-07 14:13 | CASEMGMT ---
Social Work Met with patient for initial assessment. Confirmed full code. MOLST form completed, communication to , and placed in chart. Explained Medicare benefit. Encouraged to contact secondary insurance to ensure copay coverage. The goal is for pt to return home to [facility] at the end of IV ATB treatment. SW to continue to follow for DC planning. Lin Arias, [employer]
--- NOTE | 2021-09-07 15:15 | NURSING ---
pt returned from appt w/ortho
[2021-09-07 15:28] VITALS: PULSE 73; RESP 16; O2SAT 98
[2021-09-07] MEDS: Ferrous Sulfate 325 MG Tablet PO (15:43)
[2021-09-07] MEDS: busPIRone 5 MG Tablet PO ×2 (15:43→21:40)
[2021-09-07] MEDS: Ascorbic Acid 500 MG Tablet 1000 MG PO (15:43)
[2021-09-07] MEDS: Senna/Docusate Sodium 1 Tablet 2 TABLET PO (18:00)
[2021-09-07 18:01] VITALS: BP 170/76; PULSE 95
[2021-09-07] MEDS: Metoprolol(XL)Succ 25 MG Tablet PO (18:01)
--- NOTE | 2021-09-07 18:04 | NURSING ---
Pt's Blood pressure 170/[address] Littlejohn updated no new orders at this time will continue to monitor.
--- NOTE | 2021-09-07 20:13 | HP.PCM_ITS ---
HPI - General General Date of Admission: 09/07/21 HPI Narrative MEREDITH MARRERO, is a 76 Female who presents with following: December 2020 Left total knee replacement. Resident states left knee was never right after surgery. Developed S. Aureus left prosthetic knee infection. 08/21/2022 Dr. Calderon at [facility] performed left knee explant, antibiotic spacer placement. Vancomycin IV pending culture results. 08/25/2022 Admit to . PICC line right upper extremity for antibiotic administration. PT/OT/ST. Vancomycin IV pending cultures. Vitamin C, iron for iron deficiency anemia. 08/28/2021 Trazodone 100mg qhs for insomnia. Moderna booster given. 08/29/2021 Change Trazodone to Clonazepam 0.5mg qhs for insomnia, anxiety. MRSA left prosthetic knee infection, Vancomycin IV thru 10/02/2021. 08/31/2021 Estrace vaginal cream for atrophic vaginitis. 09/01/2021 Increase clonazepam for insomnia, anxiety. 09/04/2021 Metoprolol succinate 25mg bid for hypertension. 09/07/2021 Admit to TCU with debility, here for rehabilitation, strengthening, intravenous antibiotics, prior to discharge home alone. [facility] Medical History Anxiety and depression Asthma CAD (coronary artery disease) Diverticulosis GERD (gastroesophageal reflux disease) Grade I diastolic dysfunction History of gastrointestinal bleeding HTN (hypertension) Hyperlipidemia IBS (irritable bowel syndrome) Intraductal papillary mucinous neoplasm Iron deficiency anemia Nonrheumatic mitral valve regurgitation RAVIN (obstructive sleep apnea) Osteoarthritis Peripheral neuropathy Prosthetic joint infection Pulmonary HTN Pulmonary nodules Seasonal allergies Urge urinary incontinence Home Medications lansoprazole [Prevacid] 30 mg PO DAILY #0 10/07/13 [History Last Taken 10/06/13] acetaminophen 1,000 mg PO Q8H PRN PRN #0 tab 09/06/21 [Rx Last Taken Unknown] albuterol sulfate [Ventolin HFA] 2 puff INHALATION Q6H PRN PRN #0 g 09/06/21 [Rx Last Taken Unknown] benzocaine-menthol [Cepacol Sore Throat (inga-men)] 1 aissatou MUCOUS MEMBRANE Q2H PRN PRN #0 ea 09/06/21 [Rx Last Taken Unknown] bisacodyl 10 mg DC .PRN X 1 PRN #0 ea 09/06/21 [Rx Last Taken Unknown] fluticasone propionate 1 spray NASAL DAILY PRN #0 g 09/06/21 [Rx Last Taken Unknown] heparin, porcine (PF) 50 units IV UD PRN #0 ml 09/06/21 [Rx Last Taken Unknown] heparin, porcine (PF) 50 units IV UD PRN #0 ml 09/06/21 [Rx Last Taken Unknown] heparin, porcine (PF) 50 units IV UD PRN #0 ml 09/06/21 [Rx Last Taken Unknown] magnesium hydroxide 30 ml PO .PRN X 1 PRN #0 ml 09/06/21 [Rx Last Taken Unknown] ondansetron HCl 4 mg PO Q8H PRN PRN #0 tab 09/06/21 [Rx Last Taken Unknown] saliva substitute combo no.9 [Biotene Dry Mouth Oral Rinse] 15 ml MUCOUS MEMBRANE 5X/DAY PRN #0 ml 09/06/21 [Rx Last Taken Unknown] sodium chloride 0.9 % (flush) [BD PosiFlush Normal Saline 0.9] 10 - 40 ml IV UD PRN #0 ml 09/06/21 [Rx Last Taken Unknown] B complex with C 20-folic acid [Virt-Caps] 1 cap PO DAILY 09/07/21 [History Last Taken Unknown] Pharmacy Consult 1 ea NOTE X1 PRN 09/07/21 [History Last Taken Unknown] ascorbic acid (vitamin C) 1,000 mg PO LUNCH 09/07/21 [History Last Taken Unknown] aspirin 81 mg PO BREAKFAST 09/07/21 [History Last Taken Unknown] bupropion HCl 150 mg PO DAILY 09/07/21 [History Last Taken Unknown] buspirone 5 mg PO TID 09/07/21 [History Last Taken Unknown] cholecalciferol (vitamin D3) 50 mcg PO DAILY 09/07/21 [History Last Taken Unknown] clonazepam 0.5 mg PO 2100 09/07/21 [History Last Taken Unknown] conjugated estrogens [Premarin] 0.625 dose VAGINAL 199909/07/21 [History Last Taken Unknown] conjugated estrogens [Premarin] 0.625 dose VAGINAL Q7D 09/07/21 [History Last Taken Unknown] ferrous sulfate [FeroSul] 325 mg PO DAILY@1200 09/07/21 [History Last Taken Unknown] food supplemt, lactose-reduced [Ensure Compact] 118 ml PO TIDCM 09/07/21 [History Last Taken Unknown] heparin (porcine) 5,000 unit SUBCUT Q12 09/07/21 [History Last Taken Unknown] meloxicam 7.5 mg PO DAILY 09/07/21 [History Last Taken Unknown] metoprolol succinate 25 mg PO BID 09/07/21 [History Last Taken Unknown] pantoprazole 40 mg PO DAILY 09/07/21 [History Last Taken Unknown] rosuvastatin [Crestor] 5 mg PO QHS 09/07/21 [History Last Taken Unknown] sennosides-docusate sodium [Stool Softener-Stimulant Laxat] 2 tab PO BID 09/07/21 [History Last Taken Unknown] vibegron [Gemtesa] 75 mg PO DAILY 09/07/21 [History Last Taken Unknown] Allergy/AdvReac Type Severity Reaction Status Date / Time Penicillins [PCN] Allergy red/rash Verified 04/21/21 10:00 at injection site promethazine HCl Allergy Unknown Verified 04/21/21 10:00 [From Phenergan] [id number] Reductase Allergy Other Verified 04/21/21 10:00 Inhibitor [Ayzgvza-Som-Fos Reductase Inhibitor] Sulfa (Sulfonamide Allergy Swelling Verified 04/21/21 10:00 Antibiotics) Family History Grandfather Cancer paternal GF Grandfather Cancer maternal GF Father CAD (coronary artery disease) Diabetes Grandmother No problems noted. 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 housing: house Smoking Status: Never smoker alcohol intake: never substance use type: does not use ROS Constitutional Constitutional: Denies chills, fever(s) or weight gain ENT HEENT: Denies headache(s), nasal congestion or nasal discharge Cardiovascular Cardiovascular: Denies chest pain or palpitations Respiratory/Chest Respiratory/Chest: Denies cough, excessive phlegm production or shortness of breath with exertion Gastrointestinal Gastrointestinal: Denies abdominal pain, nausea or vomiting Genitourinary Genitourinary: Denies dysuria Musculoskeletal Musculoskeletal: Denies joint pain or joint swelling Integumentary Integumentary: Denies rash or wounds Neurologic Neurologic: Denies focal weakness, numbness or tingling Psychiatric Psychiatric: Denies anxiety, auditory hallucinations, depression, homicidal ideation or suicidal ideation Vital Signs Vital Signs Vital Signs: 09/07/21 10:44 09/07/21 15:28 09/07/21 18:01 Temperature 96.3 F L Temperature Source Temporal Pulse Rate 71 73 95 Pulse Rhythm Regular Pulse Strength Normal (2+) Respiratory Rate 17 16 Respiratory Effort Normal Non-Labored Respiratory Depth Normal Respiratory Pattern Normal Blood Pressure 143/77 H 170/76 H Blood Pressure Mean 99 Blood Pressure Source Monitor Blood Pressure Position Semi-Fowlers Blood Pressure Location Left Arm Pulse Ox 93 98 Oxygen Delivery Method Room Air Room Air Weight Weight: 77.111 kg Body Mass Index (BMI) 27.4 Physical Exam Const alert and oriented x3 General Appearance: cooperative HEENT normocephalic Eyes PERRL and EOMs intact bilaterally Neck supple, no JVD and no carotid bruits Resp normal respiratory effort, normal air movement and clear to auscultation bilaterally Cardio regular rate and regular rhythm GI normal to inspection, nondistended, normoactive bowel sounds, non-tender and non-distended Extremity normal capillary refill General Extremity: Negative for edema Skin no rashes or lesions noted General Skin Exam: no breakdown Psych affect normal Appearance: appropriate Assessment & Plan Assessment/Plan (1) Debility: (2) Infection of prosthetic left knee joint: (3) HTN (hypertension): (4) Anxiety and depression: (5) Iron deficiency anemia: (6) CAD (coronary artery disease): (7) RAVIN (obstructive sleep apnea): (8) Gastroesophageal reflux disease: (9) Overactive bladder: (10) Atrophic vaginitis: PLAN: 76 year old female with below past medical history hospitalized for MRSA left prosthetic knee infection, underwent left knee explant, antibiotic spacer placement 08/21/[address] Calderon, admitted to [facility], then TCU with debility, here for rehabilitation, strengthening, intravenous antibiotics, prior to discharge home alone. * Debility - PT/OT. * Pain - Tylenol 1000mg q8h prn pain (1-10). * Bowel - Senna/colace 2 tablets bid, Dulcolax 10mg pr x 1 prn, Magnesium hydroxide 30ml po x 1 prn. * Adult immunization - Administer prevnar 13, pneumovax 23, fluzone, covid19 vaccine as appropriate. * DVT prophylaxis - Heparin 5000 units q12h. * Shortness of breath - Albuterol 2 puffs q6h prn. * Vitamin C deficiency - Vitamin C 1000mg daily. * Coronary artery disease - Metoprolol succinate 25mg bid, Aspirin 81mg daily. * Sore throat - Cepacol 1 lozenge po q2h prn. * Depression - Bupropion xl 150mg daily, stable chronic fci use, GDR not recommended. * Anxiety - buspar 5mg tid, clonazepam 0.5mg qhs, stable chronic fci use, GDR not recommended. * Vitamin D deficiency - D3 50mcg daily. * Nutrition - Ensure Compact 118ml po tidcm. * Atrophic vaginitis - Estrogen 0.625gm vaginal q7days. * Iron deficiency anemia - Ferrous sulfate 325mg daily. * Allergic rhinitis - Flonase 1 spray daily prn. * Vitamin B deficiency - Vitamin B complex 1 tablet daily. * Osteoarthritis - Meloxicam 7.5mg daily. * Overactive bladder - Myrbetriq 25mg daily. * Nausea - Zofran odt 4mg q8h prn. * GERD - Pantoprazole 40mg daily. * Hyperlipidemia - Rosuvastatin 5mg qhs. * Dry mouth - Saliva 15ml 5x/day prn. * Left prosthetic knee infection s/p explant/antibiotic spacer - Vancomycin 1250mg iv q24h thru 10/02/2021.
[2021-09-07] MEDS: Rosuvastatin Calcium 5 MG Tablet PO (21:40)
[2021-09-07] MEDS: Heparin Injection (Vial) 5,000 UNIT/ML VIAL 5000 UNIT SC (21:41)
[2021-09-07] MEDS: clonazePAM 0.5 MG Tablet PO (21:45)
[2021-09-08 05:07] VITALS: BP 133/55; PULSE 72
[2021-09-08 05:10] VITALS: PULSE 72
[2021-09-08] MEDS: buPROPion (XL) 150 MG TABLET.XL PO (05:10)
[2021-09-08] MEDS: Mirabegron 25 MG TAB.ER.24H PO (05:10)
[2021-09-08] MEDS: Meloxicam 7.5 MG Tablet PO (05:10)
[2021-09-08] MEDS: busPIRone 5 MG Tablet PO ×3 (05:10→22:00)
[2021-09-08] MEDS: 0.9% NaCl Peripheral Flush Adult/Peds IV ×2 (05:10→09:28)
[2021-09-08] MEDS: Cholecalciferol (VIT D3) 25 MCG TABLET (1,000 UNITS) 50 MCG PO (05:10)
[2021-09-08] MEDS: Metoprolol(XL)Succ 25 MG Tablet PO ×2 (05:10→17:29)
[2021-09-08] MEDS: Folic Acid/Vitamin B Comp W-C 1 Capsule 1 CAP PO (05:11)
[2021-09-08] MEDS: Senna/Docusate Sodium 1 Tablet 2 TABLET PO ×2 (05:11→17:29)
[2021-09-08] MEDS: Pantoprazole Sodium 40 MG Tablet PO (05:11)
[2021-09-08] MEDS: Heparin Injection (Vial) 5,000 UNIT/ML VIAL 5000 UNIT SC ×2 (05:12→17:29)
[2021-09-08 05:46] LABS: Absolute Lymphocyte Count 1.24 X10^3/uL (0.83-4.51); Absolute Neutrophil Count 3.1 X10^3/uL (2.0-7.7); Basophil# 0.03 X10^3/uL; Basophil% 0.6 % (0-1); Eosinophil# 0.27 X10^3/uL; Eosinophils% 5.2 % (0-5); Hematocrit 30.9 % (37-47); Hemoglobin 9.4 g/dL (12.0-15.0); Lymphocyte # 1.24 X10^3/ul (0.83-4.51); Mean Corp Hgb Conc 30.4 g/dL (32-36); Mean Corpuscular Volume 82.2 fL (81-99); Monocyte# 0.47 X10^3/uL; Monocyte% 9.1 % (0-10); NRBC Flagged by Analyzer 0 % (0-5); Neutrophil # 3.12 X10^3/uL (2.7-7.7); Neutrophil % 60.5 % (47-70); POSITIVE MORPHOLOGY YES; Platelet Count 393 K/mm3 (150-450); RBC Distribution Width CV 20.4 % (11.6-14.6); RBC Distribution Width SD 61.5 fl (35.1-43.9); Red Blood Count 3.76 M/mm3 (4.2-5.4); White Blood Count 5.2 K/mm3 (4.4-11.0)
[2021-09-08 06:01] LABS: Differential Indicated SCAN CRITERIA MET
[2021-09-08 06:09] LABS: Erythrocyte Sedimentation Rate 51 mm/hr (0-30)
[2021-09-08 06:22] LABS: Anisocytosis 2+
[2021-09-08 06:24] LABS: Anion Gap 6 (5-15); BUN 19 mg/dL (7-18); BUN/Creat Ratio 20.4 RATIO (10-20); Calcium,Total 9.3 mg/dL (8.5-10.1); Chloride 104 mmol/L (98-107); Creatinine, Serum 0.93 mg/dL (0.55-1.02); EST Glomerular Filtration Rate 62 mL/min (>60); Est Glom Filt Rate - Afr Amer 75 mL/min (>60); Estimated Creatinine Clearance 47.42 ml/min; Glucose 102 mg/dL (74-106); Potassium 3.9 mmol/L (3.5-5.1); Sodium Level 137 mmol/L (136-145)
[2021-09-08] MEDS: Aspirin 81 MG TAB.CHEW PO (07:45)
[2021-09-08] MEDS: Ascorbic Acid 500 MG Tablet 1000 MG PO (12:17)
[2021-09-08] MEDS: Tuberculin,Purif.prot.deriv. 50 TU/ML Vial 0.1 ML ID (12:17)
[2021-09-08] MEDS: Ferrous Sulfate 325 MG Tablet PO (12:19)
[2021-09-08 16:00] VITALS: BP 137/53; PULSE 71; RESP 22; TEMP 36.5; O2SAT 96
[2021-09-08 17:29] VITALS: PULSE 71
[2021-09-08] MEDS: clonazePAM 0.5 MG Tablet PO (22:00)
[2021-09-08] MEDS: Rosuvastatin Calcium 5 MG Tablet PO (22:01)
[2021-09-09 00:38] VITALS: RESP 16
[2021-09-09 06:14] VITALS: BP 167/65; PULSE 76
[2021-09-09] MEDS: Metoprolol(XL)Succ 25 MG Tablet PO ×2 (06:14→17:57)
[2021-09-09] MEDS: Mirabegron 25 MG TAB.ER.24H PO (06:14)
[2021-09-09] MEDS: busPIRone 5 MG Tablet PO ×3 (06:14→21:23)
[2021-09-09] MEDS: buPROPion (XL) 150 MG TABLET.XL PO (06:14)
[2021-09-09] MEDS: Heparin Injection (Vial) 5,000 UNIT/ML VIAL 5000 UNIT SC ×2 (06:14→17:56)
[2021-09-09] MEDS: Meloxicam 7.5 MG Tablet PO (06:14)
[2021-09-09] MEDS: Pantoprazole Sodium 40 MG Tablet PO (06:15)
[2021-09-09] MEDS: Senna/Docusate Sodium 1 Tablet 2 TABLET PO (06:15)
[2021-09-09] MEDS: Cholecalciferol (VIT D3) 25 MCG TABLET (1,000 UNITS) 50 MCG PO (06:15)
[2021-09-09] MEDS: Folic Acid/Vitamin B Comp W-C 1 Capsule 1 CAP PO (06:15)
[2021-09-09 08:09] LABS: Vancomycin, Trough Level 15.5 ug/mL (5.0-15.0)
[2021-09-09] MEDS: Aspirin 81 MG TAB.CHEW PO (08:46)
[2021-09-09] MEDS: 0.9 % NaCl (Sterile) Posiflush 10 mL IV (08:47)
--- NOTE | 2021-09-09 09:26 | PCM.RX.CS ---
Consult Pharmacy has been consulted to manage selected antiobiotic: Vancomycin Type of Consult: Follow-up Prior Doses of Antibiotics Received/Current Regimen: current dose is vanc 1250mg IV q24h Labs: Sodium 137 mmol/L (136-145) 09/08/21 05:20 Potassium 3.9 mmol/L (3.5-5.1) 09/08/21 05:20 Chloride 104 mmol/L (98-107) 09/08/21 05:20 Carbon Dioxide 27.0 mmol/L (21.0-32.0) 09/08/21 05:20 Anion Gap 6 (5-15) 09/08/21 05:20 BUN 19 mg/dL (7-18) H 09/08/21 05:20 Creatinine 0.93 mg/dL (0.55-1.02) 09/08/21 05:20 Est GFR (MDRD) Af Amer 75 mL/min (>60) 09/08/21 05:20 Est GFR (MDRD) Non-Af 62 mL/min (>60) 09/08/21 05:20 BUN/Creatinine Ratio 20.4 RATIO (10-20) H 09/08/21 05:20 Glucose 102 mg/dL (74-106) 09/08/21 05:20 Vancomycin Trough 15.5 ug/mL (5.0-15.0) H 09/09/21 07:34 Weight used for dosin.1 kg Estimated Creatinine Clearance: 47ml/min Goal Trough: 10-15 mcg/mL Pharmacy Plan for Drug Dosing: The vanc trough drawn at 07:34 today (approx 22 hours after the previous dose) was 15.5. This is slightly above goal range but the previous dose was given a little late. If the trough had been drawn closer to 24 hours, it would have most likely been in goal range. Therefore, will keep same dose for now and recheck a trough in 2 days. Pharmacy Service will continue to monitor and adjust dosing as required. Follow-Up Labs: Trough Vancomycin Labs to be done on [date and time ordered]: 09/11/21 07:30
[2021-09-09] MEDS: Ascorbic Acid 500 MG Tablet 1000 MG PO (11:23)
[2021-09-09] MEDS: Ferrous Sulfate 325 MG Tablet PO (11:23)
[2021-09-09 17:57] VITALS: BP 115/63; PULSE 87
[2021-09-09 18:41] VITALS: BP 115/63; PULSE 87; RESP 18; TEMP 36.7; O2SAT 95
[2021-09-09 20:01] VITALS: PULSE 80; RESP 14; O2SAT 99
[2021-09-09] MEDS: Rosuvastatin Calcium 5 MG Tablet PO (21:23)
[2021-09-09] MEDS: clonazePAM 0.5 MG Tablet PO (21:23)
[2021-09-10] MEDS: Mirabegron 25 MG TAB.ER.24H PO (05:52)
[2021-09-10] MEDS: Folic Acid/Vitamin B Comp W-C 1 Capsule 1 CAP PO (05:52)
[2021-09-10 05:53] VITALS: BP 158/73; PULSE 67
[2021-09-10] MEDS: Cholecalciferol (VIT D3) 25 MCG TABLET (1,000 UNITS) 50 MCG PO (05:53)
[2021-09-10] MEDS: Meloxicam 7.5 MG Tablet PO (05:53)
[2021-09-10] MEDS: Pantoprazole Sodium 40 MG Tablet PO (05:53)
[2021-09-10] MEDS: Heparin Injection (Vial) 5,000 UNIT/ML VIAL 5000 UNIT SC ×2 (05:53→17:24)
[2021-09-10] MEDS: Metoprolol(XL)Succ 25 MG Tablet PO ×2 (05:53→17:26)
[2021-09-10] MEDS: buPROPion (XL) 150 MG TABLET.XL PO (06:08)
[2021-09-10] MEDS: busPIRone 5 MG Tablet PO ×3 (06:08→20:05)
[2021-09-10] MEDS: 0.9% Saline Lock 10 ML Syringe IV (07:57)
[2021-09-10] MEDS: Aspirin 81 MG TAB.CHEW PO (07:59)
[2021-09-10] MEDS: Ascorbic Acid 500 MG Tablet 1000 MG PO (11:23)
[2021-09-10] MEDS: Ferrous Sulfate 325 MG Tablet PO (11:23)
[2021-09-10 16:19] VITALS: BP 121/68; PULSE 72; RESP 16; TEMP 36.6; O2SAT 97
[2021-09-10] MEDS: Senna/Docusate Sodium 1 Tablet 2 TABLET PO (17:25)
[2021-09-10 17:26] VITALS: BP 121/68; PULSE 72
[2021-09-10] MEDS: clonazePAM 0.5 MG Tablet PO (20:04)
[2021-09-10] MEDS: Rosuvastatin Calcium 5 MG Tablet PO (20:05)
[2021-09-10 20:41] VITALS: PULSE 72; RESP 16; O2SAT 99
[2021-09-11] MEDS: 0.9% NaCl Peripheral Flush Adult/Peds IV ×2 (05:48→08:40)
[2021-09-11] MEDS: Heparin Injection (Vial) 5,000 UNIT/ML VIAL 5000 UNIT SC ×2 (05:50→16:54)
[2021-09-11 05:51] VITALS: BP 139/67; PULSE 77
[2021-09-11] MEDS: busPIRone 5 MG Tablet PO ×3 (05:51→21:50)
[2021-09-11] MEDS: Cholecalciferol (VIT D3) 25 MCG TABLET (1,000 UNITS) 50 MCG PO (05:51)
[2021-09-11] MEDS: Metoprolol(XL)Succ 25 MG Tablet PO ×2 (05:51→16:54)
[2021-09-11] MEDS: Folic Acid/Vitamin B Comp W-C 1 Capsule 1 CAP PO (05:51)
[2021-09-11] MEDS: Pantoprazole Sodium 40 MG Tablet PO (05:51)
[2021-09-11] MEDS: Mirabegron 25 MG TAB.ER.24H PO (05:51)
[2021-09-11] MEDS: buPROPion (XL) 150 MG TABLET.XL PO (05:51)
[2021-09-11] MEDS: Meloxicam 7.5 MG Tablet PO (06:20)
[2021-09-11] MEDS: Aspirin 81 MG TAB.CHEW PO (08:30)
--- NOTE | 2021-09-11 09:24 | PCM.RX.CS ---
Consult Pharmacy has been consulted to manage selected antiobiotic: Vancomycin Type of Consult: Follow-up Prior Doses of Antibiotics Received/Current Regimen: 1250mg iv q24h. Labs: Sodium 137 mmol/L (136-145) 09/08/21 05:20 Potassium 3.9 mmol/L (3.5-5.1) 09/08/21 05:20 Chloride 104 mmol/L (98-107) 09/08/21 05:20 Carbon Dioxide 27.0 mmol/L (21.0-32.0) 09/08/21 05:20 Anion Gap 6 (5-15) 09/08/21 05:20 BUN 19 mg/dL (7-18) H 09/08/21 05:20 Creatinine 0.93 mg/dL (0.55-1.02) 09/08/21 05:20 Est GFR (MDRD) Af Amer 75 mL/min (>60) 09/08/21 05:20 Est GFR (MDRD) Non-Af 62 mL/min (>60) 09/08/21 05:20 BUN/Creatinine Ratio 20.4 RATIO (10-20) H 09/08/21 05:20 Glucose 102 mg/dL (74-106) 09/08/21 05:20 Vancomycin Trough 15.0 ug/mL (5.0-15.0) 09/11/21 07:26 Weight used for dosin kg Estimated Creatinine Clearance: 47ml/min Goal Trough: 10-15 mcg/mL Pharmacy Plan for Drug Dosing: Trough today was 15.0 and in goal range of 10-15mcg/ml. Renal stable. Will continue same dose. Another trough level ordered for in 4 days per protocol. Pharmacy Service will continue to monitor and adjust dosing as required. Follow-Up Labs: Trough Vancomycin - 1.21.22@0730 before 0800 dose
[2021-09-11] MEDS: Ferrous Sulfate 325 MG Tablet PO (11:48)
[2021-09-11] MEDS: Ascorbic Acid 500 MG Tablet 1000 MG PO (11:48)
[2021-09-11 15:06] VITALS: BP 130/62; PULSE 72; RESP 14; TEMP 36.6; O2SAT 96
--- NOTE | 2021-09-11 15:12 | NURSING ---
Resident and sister, Nany, notified of 2 staff members testing positive for COVID.
[2021-09-11 16:54] VITALS: BP 130/62; PULSE 72
[2021-09-11] MEDS: Senna/Docusate Sodium 1 Tablet 2 TABLET PO (16:54)
[2021-09-11] MEDS: Rosuvastatin Calcium 5 MG Tablet PO (21:50)
[2021-09-11] MEDS: clonazePAM 0.5 MG Tablet PO (21:52)
[2021-09-11 22:48] VITALS: PULSE 72; RESP 14; O2SAT 97
[2021-09-12] MEDS: Cholecalciferol (VIT D3) 25 MCG TABLET (1,000 UNITS) 50 MCG PO (04:56)
[2021-09-12] MEDS: Senna/Docusate Sodium 1 Tablet 2 TABLET PO (04:56)
[2021-09-12] MEDS: buPROPion (XL) 150 MG TABLET.XL PO (04:56)
[2021-09-12] MEDS: Pantoprazole Sodium 40 MG Tablet PO (04:56)
[2021-09-12] MEDS: Meloxicam 7.5 MG Tablet PO (04:56)
[2021-09-12] MEDS: Folic Acid/Vitamin B Comp W-C 1 Capsule 1 CAP PO (04:57)
[2021-09-12] MEDS: Heparin Injection (Vial) 5,000 UNIT/ML VIAL 5000 UNIT SC ×2 (04:57→17:21)
[2021-09-12] MEDS: busPIRone 5 MG Tablet PO ×3 (04:57→21:53)
[2021-09-12] MEDS: Mirabegron 25 MG TAB.ER.24H PO (04:57)
[2021-09-12 05:03] VITALS: BP 145/69; PULSE 85
[2021-09-12] MEDS: Metoprolol(XL)Succ 25 MG Tablet PO ×2 (05:03→17:21)
[2021-09-12] MEDS: Aspirin 81 MG TAB.CHEW PO (08:39)
[2021-09-12] MEDS: 0.9% NaCl Peripheral Flush Adult/Peds IV (09:06)
[2021-09-12] MEDS: Acetaminophen 500 MG Tablet 1000 MG PO (10:54)
[2021-09-12] MEDS: Ondansetron ODT 4 MG Tablet PO (10:57)
[2021-09-12] MEDS: Ferrous Sulfate 325 MG Tablet PO (12:25)
[2021-09-12] MEDS: Ascorbic Acid 500 MG Tablet 1000 MG PO (12:25)
--- NOTE | 2021-09-12 13:00 | NURSING ---
Message left on nurse phone line at Gee Cantu NP office. Resident seen by him 09/07/21. Therapy asking about orders to shower and there are no current orders in regard to this. Call back number left on phone message.
[2021-09-12 13:23] VITALS: BP 124/60; PULSE 76; RESP 20; TEMP 36.6; O2SAT 97
[2021-09-12 17:21] VITALS: PULSE 76
[2021-09-12] MEDS: clonazePAM 0.5 MG Tablet PO (21:52)
[2021-09-12] MEDS: Rosuvastatin Calcium 5 MG Tablet PO (21:53)
[2021-09-13] MEDS: Cholecalciferol (VIT D3) 25 MCG TABLET (1,000 UNITS) 50 MCG PO (05:36)
[2021-09-13] MEDS: Senna/Docusate Sodium 1 Tablet 2 TABLET PO ×2 (05:37→17:52)
[2021-09-13] MEDS: busPIRone 5 MG Tablet PO ×3 (05:37→20:14)
[2021-09-13] MEDS: Folic Acid/Vitamin B Comp W-C 1 Capsule 1 CAP PO (05:37)
[2021-09-13] MEDS: Meloxicam 7.5 MG Tablet PO (05:37)
[2021-09-13] MEDS: Pantoprazole Sodium 40 MG Tablet PO (05:37)
[2021-09-13] MEDS: Mirabegron 25 MG TAB.ER.24H PO (05:37)
[2021-09-13] MEDS: Estrogens,Conj. 1 Tube 0.625 DOSE VAGINAL (05:38)
[2021-09-13] MEDS: buPROPion (XL) 150 MG TABLET.XL PO (05:38)
[2021-09-13] MEDS: Heparin Injection (Vial) 5,000 UNIT/ML VIAL 5000 UNIT SC ×2 (05:38→17:52)
[2021-09-13 05:39] VITALS: BP 127/65; PULSE 72
[2021-09-13] MEDS: Metoprolol(XL)Succ 25 MG Tablet PO ×2 (05:39→17:51)
[2021-09-13] MEDS: Aspirin 81 MG TAB.CHEW PO (08:53)
--- NOTE | 2021-09-13 08:56 | CASEMGMT ---
Social Work SW completed BIMS(15) and PHQ-9(15) this date. Pt showing signs of depression. SW spoke w/pt a length in regard to symptoms of depression, pt tearful during converstaion. Pt is already on medications for depression. Pt's has been in and out of the hospital, and nursing homes. Pt and have been for 12 years. Pt states she lost her prior , and a son, and this situation is the most difficult she has been through. Pt had to have surgery on her knee when was still in the hospital recovering. is now at [facility]. SW spoke w/pt about what may help her through this difficult time. Pt is not certain. SW offered support to pt. SW encouraged pt to ask to speak w/SW should she want to talk through anything. Pt states understanding. SW will continue to follow and remains available for support to pt, as she is going through her own recovery and also dealing with her 's many health issues. NIKITA Dover
--- NOTE | 2021-09-13 09:46 | PHA.CONS1_ITS ---
Progress Note - Pharmacy Subjective: [] TCU Admission Objective: Allergies Penicillins [PCN] Allergy (Verified 04/21/21 10:00) red/rash at injection site promethazine HCl [From Phenergan] Allergy (Verified 04/21/21 10:00) Unknown [id number] Reductase Inhibitor [Hgpmbsy-[id number]-[id number] Reductase Inhibitor] Allergy (Verified 04/21/21 10:00) Other Sulfa (Sulfonamide Antibiotics) Allergy (Verified 04/21/21 10:00) Swelling Current Medications Generic Name Dose Route Start Last Admin Trade Name Freq PRN Reason Stop Dose Admin Acetaminophen 1,000 mg 09/07/21 10:56 09/12/21 10:54 Acetaminophen 500 Mg Tablet PO 1,000 mg Q8H PRN PRN Administration Pain Score 1-10 Albuterol Sulfate 2 puff 09/07/21 10:56 Albuterol Sulfate 8 Gm Inhaler (60 Puffs) INHALATION Q6H PRN PRN Sob &/Or Wheezing Ascorbic Acid 1,000 mg 09/07/21 12:00 09/12/21 12:25 Ascorbic Acid 500 Mg Tablet PO 1,000 mg LUNCH ALBA Administration Aspirin 81 mg 09/08/21 08:00 09/13/21 08:53 Aspirin 81 Mg Tab.Chew PO 81 mg BREAKFAST ALBA Administration Bisacodyl 10 mg 09/07/21 10:56 Bisacodyl 10 Mg Suppository RC .PRN X 1 PRN Constipation Bupropion HCl 150 mg 09/08/21 06:00 09/13/21 05:38 Bupropion (Xl) 150 Mg Tablet.Xl PO 150 mg DAILY ALBA Administration Buspirone HCl 5 mg 09/07/21 14:00 09/13/21 05:37 Buspirone 5 Mg Tablet PO 5 mg TID ALBA Administration Cholecalciferol 50 mcg 09/08/21 06:00 09/13/21 05:36 Cholecalciferol (Vit D3) 25 Mcg Tablet (1,000 Units) PO 50 mcg DAILY ALBA Administration Clonazepam 0.5 mg 09/07/21 21:00 09/12/21 21:52 Clonazepam 0.5 Mg Tablet PO 0.5 mg 2100 ALBA Administration Estrogens Conjugated 0.625 dose 09/13/21 06:00 09/13/21 05:38 Estrogens,Conj. 1 Tube VAGINAL 1 applic Q7D ALBA Administration Ferrous Sulfate 325 mg 09/07/21 12:00 09/12/21 12:25 Ferrous Sulfate 325 Mg Tablet PO 325 mg LUNCH ALBA Administration Fluticasone Propionate 1 spray 09/07/21 10:56 Fluticasone 0.05% 1 [place] Nasal.Sry NASAL DAILY PRN CONGESTION Heparin Sodium (Beef Lung) 50 units 09/07/21 15:41 Heparin Pf Lock 10 Units/Ml 50 Units/5 Ml Syringe IV UD PRN PICC Line Heparin Flush Heparin Sodium (Porcine) 5,000 unit 09/07/21 22:00 09/13/21 05:38 Heparin Injection (Vial) 5,000 Unit/Ml Vial SC 5,000 unit Q12 ALBA Administration Vancomycin IV-PHARMACY TO DOSE 500 mls @ 250 mls/hr 09/07/21 14:01 1 each/ Sodium Chloride IV PRN PRN Rx to Dose Protocol Vancomycin HCl 1,250 mg/ 275 mls @ 167 mls/hr 09/08/21 08:00 09/13/21 08:52 Sodium Chloride IV 167 mls/hr Q24H ALBA Administration Sodium Chloride 250 mls @ 15 mls/hr 09/07/21 15:41 09/08/21 09:28 IV 15 mls/hr .[id number] PRN Administration Saline Flush Sodium Chloride 250 mls @ 15 mls/hr 09/07/21 15:41 IV .[id number] PRN Additional IVPB Infusion Lactobacillus Acidophilus 1 tablet 09/12/21 18:00 09/13/21 05:37 Lactobacillus Acidophilus PO 1 tablet BID ALBA Administration Magnesium Hydroxide 30 ml 09/07/21 10:56 Magnesium Hydroxide 30 Ml Udc PO .PRN X 1 PRN Constipation Meloxicam 7.5 mg 09/08/21 06:00 09/13/21 05:37 Meloxicam 7.5 Mg Tablet PO 7.5 mg DAILY ALBA Administration Metoprolol Succinate 25 mg 09/07/21 18:00 09/13/21 05:39 Metoprolol(Xl)Succ 25 Mg Tablet PO 25 mg BID ALBA Administration Mirabegron 25 mg 09/08/21 06:00 09/13/21 05:37 Mirabegron 25 Mg Tab.Er.24h PO 25 mg DAILY ALBA Administration Multivit/Ca Carb/B Cmplx/FA/Prenat 1 cap 09/08/21 06:00 09/13/21 05:37 Folic Acid/Vitamin B Comp W-C 1 Capsule PO 1 cap DAILY ALBA Administration Nutritional Formula (Lactose Free) 118 ml 09/07/21 12:45 09/13/21 08:53 Ensure Compact 118 Ml Liquid PO 118 ml TIDCM ALBA Administration Ondansetron HCl 4 mg 09/07/21 10:56 09/12/21 10:57 Ondansetron Odt 4 Mg Tablet PO 4 mg Q8H PRN PRN Administration Nausea/Vomiting Pantoprazole Sodium 40 mg 09/08/21 06:00 09/13/21 05:37 Pantoprazole Sodium 40 Mg Tablet PO 40 mg DAILY ALBA Administration Rosuvastatin Calcium 5 mg 09/07/21 22:00 09/12/21 21:53 Rosuvastatin Calcium 5 Mg Tablet PO 5 mg QHS ALBA Administration Saliva Substitute 15 ml 09/07/21 10:56 Saliva Substitute 237 Ml Bottle MUCOUS MEM 5X/DAY PRN Dry Mouth Senna/Docusate Sodium 2 tablet 09/07/21 18:00 09/13/21 05:37 Senna/Docusate Sodium 1 Tablet PO 2 tablet BID ALBA Administration Sodium Chloride 5 - 15 ml 09/07/21 11:30 09/12/21 09:06 0.9% Nacl Peripheral Flush Adult/Peds IV 10 ml UD PRN Administration SALINE FLUSH Sodium Chloride 10 - 40 ml 09/07/21 15:41 09/10/21 07:57 0.9% Saline Lock 10 Ml Syringe IV 20 ml UD PRN Administration Open End PICC Flush Sodium Chloride 10 - 40 ml 09/07/21 15:41 09/09/21 08:47 0.9 % Nacl (Sterile) Posiflush 10 Ml IV 20 ml UD PRN Administration Port access or dressing change Throat Lozenges 1 lozenge 09/07/21 10:56 Benzocaine/Menthol 1 Lozenge MUCOUS MEM Q2H PRN PRN dry mouth/sore throat Tuberculin PPD 0.1 ml 09/15/21 10:00 Tuberculin,Purif.Prot.Deriv. 50 Tu/Ml Vial ID 09/15/21 10:01 X1 ONE Problem List (Last Reviewed 09/07/21 @ 20:[address] 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) Debility (Acute) HTN (hypertension) (Chronic) Anxiety and depression (Chronic) Iron deficiency anemia (Chronic) CAD (coronary artery disease) (Chronic) RAVIN (obstructive sleep apnea) (Chronic) Vital Signs Temp Pulse Resp BP Pulse Ox 97.9 F 72 20 H 127/65 H 97 09/12/21 13:23 09/13/21 05:39 09/12/21 13:23 09/13/21 05:39 09/12/21 13:23 Oxygen Delivery Method Room Air Weight: 77.564 kg Body Mass Index (BMI) 27.4 Sodium 137 mmol/L (136-145) 09/08/21 05:20 Potassium 3.9 mmol/L (3.5-5.1) 09/08/21 05:20 Chloride 104 mmol/L (98-107) 09/08/21 05:20 Carbon Dioxide 27.0 mmol/L (21.0-32.0) 09/08/21 05:20 Anion Gap 6 (5-15) 09/08/21 05:20 BUN 19 mg/dL (7-18) H 09/08/21 05:20 Creatinine 0.93 mg/dL (0.55-1.02) 09/08/21 05:20 Est GFR (MDRD) Af Amer 75 mL/min (>60) 09/08/21 05:20 Est GFR (MDRD) Non-Af 62 mL/min (>60) 09/08/21 05:20 BUN/Creatinine Ratio 20.4 RATIO (10-20) H 09/08/21 05:20 Glucose 102 mg/dL (74-106) 09/08/21 05:20 Vancomycin Trough 15.0 ug/mL (5.0-15.0) 09/11/21 07:26 Assessment/Plan: 1) Pain: Acetaminophen 1000mg po q8h prn for pain 1-10. Please continue to monitor prn usage and for signs/symptoms of increased/decreased pain. 2) DVT Prophylaxis: Heparin 5000 units subq q12h. Pts plts are 393. Please continue to monitor labs, and for signs/symptoms of bruising/bleeding 3) Shortness of Breath: Albuterol Inhaler 2 puffs q6h prn for shortness of breath and/or wheezing. PRN Note: Pt has yet to receive a dose. Please continue to monitor prn usage and for signs/symptoms of shortness of breath / wheezing. 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 Please continue to monitor for signs/symptoms of arthritis 5) GERD: Pantoprazole 40mg po daily. Please continue to monitor for signs/symptoms of GERD *6) Hyperlipidemia: Rosuvastatin 5mg po qhs. Pts LFTs are within normal limits. I could not find a recent lipid panel in the pts chart. Please consider a yearly lipid panel while the pt is on a statin. Thanks. 7) CAD: Aspirin 81mg po with breakfast, Metoprolol Succinate 25mg po daily. Pts pulse is within normal limits. Pts average bp is 131/60. Please continue to monitor. 8) Overactive Bladder: Myrbetriq 25mg po daily. Please continue to monitor for overactive bladder. 9) Atrophic Vaginitis: Premarin Vaginal Cream every 7 days. Please continue to monitor for signs/symptoms of vaginitis. Psychotropic Medications: Buproprion XL 150mg po daily for depression. See physicians note about GDR Buspar 5mg po tid for anxiety. See physicians not about GDR Clonazepam 0.5mg po daily at 2100 for anxiety. Pt recently started on medication 08/29/21, no GDR recommended Unnecessary Medications: n/a Bowel Regimen: Bisacodyl 10mg rectally x1 prn for constipation, Senna/Docusate 2 tablets po bid. Pt has refused 4 of 12 senna/docusate doses. Please continue to monitor pt refusal. Date of Note:: 09/13/21
--- NOTE | 2021-09-13 10:06 | CASEMGMT ---
Social Work IDT met with patient and sister care plan meeting. Discussed patient's progress in PT/OT and nursing. Explained Medicare benefit. Encouraged to contact secondary insurance to ensure copay coverage. Pt adlib in room with therapy. Pt is on IV ATB until 10/02 and the goal is for pt to return home. is currently is SNF in poor condition from drastic medical change. Pt is tearful and expressed depressive symptoms. Pt is on several medications to assist with mood. Left communication for Dr for start on Remeron, as pt expressed poor appetite and trouble sleeping also. Pt agreeable to any interventions to assist. Offered ongoing emotional support to pt. SW to continue to follow for support and discharge planning. Lin Arias, CHIEF BUSINESS OFFICER MEDICAL EDUCATOR
[2021-09-13] MEDS: Ferrous Sulfate 325 MG Tablet PO (11:39)
[2021-09-13] MEDS: Ascorbic Acid 500 MG Tablet 1000 MG PO (11:40)
--- NOTE | 2021-09-13 12:36 | CASEMGMT ---
Social Work Followed up with patient after meeting to further discuss mood. Pt is tearful and struggling with husbands major decline and change in medical condition and functional status. Pt did not elaborate on those conditions. She does not want to see him in the sense of 'fearing what he may look like, etc'. Offered to speak to him on the phone if he remembers her - she agreed and would have sister coordinate. SW offered to coordinate with facility as well (At [facility]). Pt explained she does not normally like to talk about her feelings; she bottles them up. Expressed understanding and respected decision. Suggested writing down feelings as a way to release feelings, but still keeping them private or risking being embarrassed by sharing them with others. Pt agreed to that idea. To provide pt with notebook/pen. Pt stated she had been seeing a counselor prior to hospitalization. Offered to set up virtual visit during remainder of stay and/or set up appt for DC. Pt will consider virtual visit. Pt expressed not sleeping well and interruptions from staff are a contributor. Discussed schedule and decrease for interruptions. Pt stated she likes to wake up between 7-8 pm for breakfast, then eat lunch and take afternoon nap between 12/1-2 pm, then go to bed about 8 pm. This will allow time for pt to have 'peace' and relax without constant interruptions and hope to improve tiredness/sleep at night. Pt agreeable for SW to make schedule for nursing and therapy staff with these time guidelines, to leave communication to to adjust medication administration times for this schedule, and to make/provide sign for pt to place on room door during nap time to remind/communicate to staff/visitors for no disruptions. Pt agreeable and likes ideas. Communications made to staff. Pt also expressed considering hospice for . Answered questions about services and discussed options. Offered to get pt in touch with secondary social studies teacher at 's SNF for pt to get further information, or for this worker to set up meeting with hospice with pt during stay. Brainstormed and discussed options to help alleviate stress from pt and not put so many anticipated tasks on her when she discharges. Pt appreciative of suggestions and support. SW offered ongoing support during stay. Will continue to follow. Lin Arias, CHUTE OPERATOR CERTIFIED SUBSTANCE ABUSE COUNSELOR
[2021-09-13 17:51] VITALS: BP 131/61; PULSE 68
[2021-09-13 18:51] VITALS: BP 131/61; PULSE 68; RESP 16; TEMP 36.8; O2SAT 95
[2021-09-13] MEDS: Rosuvastatin Calcium 5 MG Tablet PO (20:14)
[2021-09-13] MEDS: clonazePAM 0.5 MG Tablet PO (20:14)
[2021-09-13] MEDS: 0.9% NaCl Peripheral Flush Adult/Peds IV (20:15)
[2021-09-13] MEDS: Acetaminophen 500 MG Tablet 1000 MG PO (22:49)
[2021-09-13 23:09] VITALS: PULSE 83; RESP 16; O2SAT 97
[2021-09-14] MEDS: busPIRone 5 MG Tablet PO ×3 (06:50→20:01)
[2021-09-14 08:07] VITALS: BP 144/59; PULSE 72
[2021-09-14 08:08] VITALS: PULSE 72
[2021-09-14] MEDS: Mirabegron 25 MG TAB.ER.24H PO (08:08)
[2021-09-14] MEDS: Pantoprazole Sodium 40 MG Tablet PO (08:08)
[2021-09-14] MEDS: Meloxicam 7.5 MG Tablet PO (08:08)
[2021-09-14] MEDS: Metoprolol(XL)Succ 25 MG Tablet PO ×2 (08:08→20:01)
[2021-09-14] MEDS: buPROPion (XL) 150 MG TABLET.XL PO (08:09)
[2021-09-14] MEDS: Cholecalciferol (VIT D3) 25 MCG TABLET (1,000 UNITS) 50 MCG PO (08:09)
[2021-09-14] MEDS: Senna/Docusate Sodium 1 Tablet 2 TABLET PO ×2 (08:09→20:01)
[2021-09-14] MEDS: 0.9% NaCl Peripheral Flush Adult/Peds IV ×2 (08:10→19:56)
[2021-09-14] MEDS: Heparin Injection (Vial) 5,000 UNIT/ML VIAL 5000 UNIT SC ×2 (08:10→20:03)
[2021-09-14] MEDS: Aspirin 81 MG TAB.CHEW PO (08:10)
[2021-09-14] MEDS: Ferrous Sulfate 325 MG Tablet PO (11:05)
[2021-09-14] MEDS: Ascorbic Acid 500 MG Tablet 1000 MG PO (11:05)
[2021-09-14 14:23] VITALS: BP 153/80; PULSE 92; RESP 20; TEMP 37.3; O2SAT 99
[2021-09-14] MEDS: Rosuvastatin Calcium 5 MG Tablet PO (20:00)
[2021-09-14 20:01] VITALS: BP 123/53; PULSE 75
[2021-09-14] MEDS: clonazePAM 0.5 MG Tablet PO (20:07)
[2021-09-15 05:48] LABS: Absolute Lymphocyte Count 1.01 X10^3/uL (0.83-4.51); Basophil# 0.02 X10^3/uL; Basophil% 0.4 % (0-1); Eosinophil# 0.34 X10^3/uL; Hematocrit 30.9 % (37-47); Hemoglobin 9.1 g/dL (12.0-15.0); Lymphocyte # 1.01 X10^3/ul (0.83-4.51); Lymphocyte % 20.7 % (19-41); Mean Corp Hgb Conc 29.4 g/dL (32-36); Mean Corpuscular Hgb 24.9 pg (27.0-32.0); Mean Corpuscular Volume 84.7 fL (81-99); Mean Platelet Vol. 8.9 fl (6.2-12.0); Monocyte# 0.51 X10^3/uL; Monocyte% 10.5 % (0-10); NRBC Flagged by Analyzer 0 % (0-5); Neutrophil # 2.96 X10^3/uL (2.7-7.7); Neutrophil % 60.8 % (47-70); POSITIVE MORPHOLOGY YES; Platelet Count 323 K/mm3 (150-450); RBC Distribution Width CV 20.8 % (11.6-14.6); RBC Distribution Width SD 64.7 fl (35.1-43.9); Red Blood Count 3.65 M/mm3 (4.2-5.4); White Blood Count 4.9 K/mm3 (4.4-11.0)
[2021-09-15 05:54] LABS: Differential Indicated SCAN CRITERIA MET
[2021-09-15 06:17] LABS: Differential Comment SCANNED
[2021-09-15 06:18] LABS: Anion Gap 4 (5-15); Anisocytosis RARE; BUN 13 mg/dL (7-18); BUN/Creat Ratio 15.3 RATIO (10-20); Calcium,Total 8.9 mg/dL (8.5-10.1); Chloride 105 mmol/L (98-107); Creatinine, Serum 0.85 mg/dL (0.55-1.02); EST Glomerular Filtration Rate 69 mL/min (>60); Est Glom Filt Rate - Afr Amer 83 mL/min (>60); Estimated Creatinine Clearance 51.89 ml/min; Glucose 100 mg/dL (74-106); Microcytosis RARE; Sodium Level 139 mmol/L (136-145)
[2021-09-15 08:24] LABS: Vancomycin, Trough Level 14.8 ug/mL (5.0-15.0)
[2021-09-15] MEDS: busPIRone 5 MG Tablet PO ×3 (08:54→19:59)
[2021-09-15] MEDS: Meloxicam 7.5 MG Tablet PO (08:54)
[2021-09-15] MEDS: Heparin Injection (Vial) 5,000 UNIT/ML VIAL 5000 UNIT SC ×2 (08:54→19:55)
[2021-09-15] MEDS: Mirabegron 25 MG TAB.ER.24H PO (08:54)
[2021-09-15] MEDS: Pantoprazole Sodium 40 MG Tablet PO (08:54)
[2021-09-15] MEDS: Aspirin 81 MG TAB.CHEW PO (08:54)
[2021-09-15] MEDS: Cholecalciferol (VIT D3) 25 MCG TABLET (1,000 UNITS) 50 MCG PO (08:55)
[2021-09-15] MEDS: buPROPion (XL) 150 MG TABLET.XL PO (08:55)
[2021-09-15 08:56] VITALS: BP 135/59; PULSE 75
[2021-09-15] MEDS: 0.9% Saline Lock 10 ML Syringe IV (08:56)
[2021-09-15] MEDS: Metoprolol(XL)Succ 25 MG Tablet PO ×2 (08:56→19:59)
--- NOTE | 2021-09-15 09:33 | PCM.RX.CS ---
Consult Type of Consult: Follow-up Suspected Infection: Other - Infection of joint prosthesis (knee) Labs: Sodium 139 mmol/L (136-145) 09/15/21 05:24 Potassium 4.0 mmol/L (3.5-5.1) 09/15/21 05:24 Chloride 105 mmol/L (98-107) 09/15/21 05:24 Carbon Dioxide 30.0 mmol/L (21.0-32.0) 09/15/21 05:24 Anion Gap 4 (5-15) L 09/15/21 05:24 BUN 13 mg/dL (7-18) 09/15/21 05:24 Creatinine 0.85 mg/dL (0.55-1.02) 09/15/21 05:24 Est GFR (MDRD) Af Amer 83 mL/min (>60) 09/15/21 05:24 Est GFR (MDRD) Non-Af 69 mL/min (>60) 09/15/21 05:24 BUN/Creatinine Ratio 15.3 RATIO (10-20) 09/15/21 05:24 Glucose 100 mg/dL (74-106) 09/15/21 05:24 Vancomycin Trough 14.8 ug/mL (5.0-15.0) 09/15/21 07:28 Microbiology: Microbiology 09/14/21 Unknown Nasal Secretion SARS-CoV-2 Antigen (Rapid) - Final Goal Trough: 10-15 mcg/mL Pharmacy Plan for Drug Dosing: VANCOMYCIN LEVEL RECEIVED Current Vancomycin Dose: 1250mg Q24H Number of Doses Received: 10+ Vancomycin Level: 14.8 Hours Since Last Dose: 23.5 hours Renal Function: CrCl 51.89 ml/min Renal Function Trend: stable Lab/Micro: Vancomycin Plan/Comments: Continue Vancomycin 1250mg Q24H Pending Level: Vancomycin trough @ 0730 09/19/21 Pharmacy Service will continue to monitor and adjust dosing as required. Labs to be done on [date and time ordered]: Vancomycin trough @ 0730 09/19/21
[2021-09-15] MEDS: Ferrous Sulfate 325 MG Tablet PO (10:41)
[2021-09-15] MEDS: Ascorbic Acid 500 MG Tablet 1000 MG PO (10:42)
[2021-09-15 14:05] VITALS: BP 120/62; PULSE 69; RESP 16; TEMP 36.7; O2SAT 96
[2021-09-15] MEDS: Tuberculin,Purif.prot.deriv. 50 TU/ML Vial 0.1 ML ID (15:03)
[2021-09-15 19:22] VITALS: PULSE 84; RESP 16; O2SAT 98
[2021-09-15] MEDS: 0.9% NaCl Peripheral Flush Adult/Peds IV (19:52)
[2021-09-15] MEDS: Rosuvastatin Calcium 5 MG Tablet PO (19:58)
[2021-09-15 19:59] VITALS: BP 140/53; PULSE 77
[2021-09-15] MEDS: clonazePAM 0.5 MG Tablet PO (19:59)
[2021-09-16] MEDS: busPIRone 5 MG Tablet PO ×3 (08:33→19:58)
[2021-09-16 08:34] VITALS: BP 143/62; PULSE 93
[2021-09-16] MEDS: Cholecalciferol (VIT D3) 25 MCG TABLET (1,000 UNITS) 50 MCG PO (08:34)
[2021-09-16] MEDS: Aspirin 81 MG TAB.CHEW PO (08:34)
[2021-09-16] MEDS: Pantoprazole Sodium 40 MG Tablet PO (08:34)
[2021-09-16] MEDS: Mirabegron 25 MG TAB.ER.24H PO (08:34)
[2021-09-16] MEDS: Metoprolol(XL)Succ 25 MG Tablet PO ×2 (08:34→19:59)
[2021-09-16] MEDS: buPROPion (XL) 150 MG TABLET.XL PO (08:34)
[2021-09-16] MEDS: Meloxicam 7.5 MG Tablet PO (08:34)
[2021-09-16] MEDS: Senna/Docusate Sodium 1 Tablet 2 TABLET PO ×2 (08:35→19:58)
[2021-09-16] MEDS: 0.9% NaCl Peripheral Flush Adult/Peds IV ×3 (08:35→20:02)
[2021-09-16] MEDS: Heparin Injection (Vial) 5,000 UNIT/ML VIAL 5000 UNIT SC ×2 (08:36→20:00)
[2021-09-16] MEDS: Ascorbic Acid 500 MG Tablet 1000 MG PO (12:04)
[2021-09-16] MEDS: Ferrous Sulfate 325 MG Tablet PO (12:04)
[2021-09-16] MEDS: Acetaminophen 500 MG Tablet 1000 MG PO (12:08)
[2021-09-16 14:21] VITALS: BP 122/61; PULSE 72; RESP 16; TEMP 36.4; O2SAT 95
[2021-09-16] MEDS: clonazePAM 0.5 MG Tablet PO (19:57)
[2021-09-16] MEDS: Rosuvastatin Calcium 5 MG Tablet PO (19:58)
[2021-09-16 19:59] VITALS: BP 140/86; PULSE 87
[2021-09-17] MEDS: Heparin Injection (Vial) 5,000 UNIT/ML VIAL 5000 UNIT SC ×2 (08:41→20:08)
[2021-09-17] MEDS: busPIRone 5 MG Tablet PO ×3 (08:43→20:09)
[2021-09-17] MEDS: Mirabegron 25 MG TAB.ER.24H PO (08:45)
[2021-09-17] MEDS: Meloxicam 7.5 MG Tablet PO (08:45)
[2021-09-17] MEDS: Aspirin 81 MG TAB.CHEW PO (08:45)
[2021-09-17 08:46] VITALS: BP 137/55; PULSE 71
[2021-09-17] MEDS: Metoprolol(XL)Succ 25 MG Tablet PO ×2 (08:46→20:10)
[2021-09-17] MEDS: Senna/Docusate Sodium 1 Tablet 2 TABLET PO (08:46)
[2021-09-17] MEDS: Pantoprazole Sodium 40 MG Tablet PO (08:46)
[2021-09-17] MEDS: Cholecalciferol (VIT D3) 25 MCG TABLET (1,000 UNITS) 50 MCG PO (08:47)
[2021-09-17] MEDS: buPROPion (XL) 150 MG TABLET.XL PO (08:48)
[2021-09-17] MEDS: Ferrous Sulfate 325 MG Tablet PO (12:17)
[2021-09-17] MEDS: Ascorbic Acid 500 MG Tablet 1000 MG PO (12:17)
[2021-09-17 15:50] VITALS: BP 121/54; PULSE 81; RESP 16; TEMP 36.6; O2SAT 96
[2021-09-17] MEDS: clonazePAM 0.5 MG Tablet PO (20:08)
[2021-09-17 20:10] VITALS: BP 134/81; PULSE 85
[2021-09-17] MEDS: Rosuvastatin Calcium 5 MG Tablet PO (20:10)
--- NOTE | 2021-09-18 07:34 | NURSING ---
Did not give Buspar prior to 0700 d/t pt request. Pt in bathroom at this time when this nurse attempted to administer medication.
[2021-09-18] MEDS: Cholecalciferol (VIT D3) 25 MCG TABLET (1,000 UNITS) 50 MCG PO (09:03)
[2021-09-18] MEDS: buPROPion (XL) 150 MG TABLET.XL PO (09:03)
[2021-09-18] MEDS: Mirabegron 25 MG TAB.ER.24H PO (09:03)
[2021-09-18] MEDS: Aspirin 81 MG TAB.CHEW PO (09:03)
[2021-09-18] MEDS: busPIRone 5 MG Tablet PO ×3 (09:03→20:01)
[2021-09-18] MEDS: Pantoprazole Sodium 40 MG Tablet PO (09:03)
[2021-09-18] MEDS: Meloxicam 7.5 MG Tablet PO (09:03)
[2021-09-18] MEDS: 0.9% Saline Lock 10 ML Syringe IV (09:04)
[2021-09-18] MEDS: Heparin Injection (Vial) 5,000 UNIT/ML VIAL 5000 UNIT SC ×2 (09:04→20:03)
[2021-09-18 09:05] VITALS: BP 145/56; PULSE 77
[2021-09-18] MEDS: Metoprolol(XL)Succ 25 MG Tablet PO ×2 (09:05→20:02)
[2021-09-18] MEDS: Ascorbic Acid 500 MG Tablet 1000 MG PO (10:37)
[2021-09-18] MEDS: Ferrous Sulfate 325 MG Tablet PO (10:38)
[2021-09-18 10:43] VITALS: PULSE 71; RESP 16; O2SAT 96
--- NOTE | 2021-09-18 13:15 | MDS.RN ---
Information for the mds was obtained from review of the clinical record, interview of resident, staff, and direct observation of resident's care.
[2021-09-18 14:36] VITALS: BP 128/52; PULSE 71; RESP 16; TEMP 36.7; O2SAT 96
[2021-09-18] MEDS: clonazePAM 0.5 MG Tablet PO (20:01)
[2021-09-18 20:02] VITALS: BP 136/60; PULSE 89
[2021-09-18] MEDS: Rosuvastatin Calcium 5 MG Tablet PO (20:03)
[2021-09-19] MEDS: busPIRone 5 MG Tablet PO ×3 (05:28→20:36)
[2021-09-19 08:06] LABS: Vancomycin, Trough Level 16.8 ug/mL (5.0-15.0)
[2021-09-19] MEDS: Aspirin 81 MG TAB.CHEW PO (08:38)
[2021-09-19] MEDS: buPROPion (XL) 150 MG TABLET.XL PO (08:38)
[2021-09-19] MEDS: Pantoprazole Sodium 40 MG Tablet PO (08:38)
[2021-09-19] MEDS: Meloxicam 7.5 MG Tablet PO (08:38)
[2021-09-19] MEDS: Cholecalciferol (VIT D3) 25 MCG TABLET (1,000 UNITS) 50 MCG PO (08:43)
[2021-09-19] MEDS: Heparin Injection (Vial) 5,000 UNIT/ML VIAL 5000 UNIT SC ×2 (08:43→20:34)
[2021-09-19 08:44] VITALS: BP 142/64; PULSE 83
[2021-09-19] MEDS: Metoprolol(XL)Succ 25 MG Tablet PO ×2 (08:44→20:33)
[2021-09-19] MEDS: Mirabegron 25 MG TAB.ER.24H PO (08:44)
--- NOTE | 2021-09-19 08:51 | NURSING ---
Per pharmacy pt is not to receive her dose of vancomycin today d/t vanco trough is 16.8. pharmacy to reschedule trough for later.
[2021-09-19 09:27] LABS: Creatinine, Serum 0.88 mg/dL (0.55-1.02); EST Glomerular Filtration Rate 66 mL/min (>60); Est Glom Filt Rate - Afr Amer 80 mL/min (>60); Estimated Creatinine Clearance 50.12 ml/min
--- NOTE | 2021-09-19 10:01 | PCM.RX.CS ---
Consult Pharmacy has been consulted to manage selected antiobiotic: Vancomycin Type of Consult: Follow-up Suspected Infection: Other Prior Doses of Antibiotics Received/Current Regimen: current dose is vanc 1250mg q24h Labs: Sodium 139 mmol/L (136-145) 09/15/21 05:24 Potassium 4.0 mmol/L (3.5-5.1) 09/15/21 05:24 Chloride 105 mmol/L (98-107) 09/15/21 05:24 Carbon Dioxide 30.0 mmol/L (21.0-32.0) 09/15/21 05:24 Anion Gap 4 (5-15) L 09/15/21 05:24 BUN 13 mg/dL (7-18) 09/15/21 05:24 Creatinine 0.88 mg/dL (0.55-1.02) 09/19/21 07:20 Est GFR (MDRD) Af Amer 80 mL/min (>60) 09/19/21 07:20 Est GFR (MDRD) Non-Af 66 mL/min (>60) 09/19/21 07:20 BUN/Creatinine Ratio 15.3 RATIO (10-20) 09/15/21 05:24 Glucose 100 mg/dL (74-106) 09/15/21 05:24 Vancomycin Trough 16.8 ug/mL (5.0-15.0) H 09/19/21 07:20 Microbiology: Microbiology 09/14/21 Unknown Nasal Secretion SARS-CoV-2 Antigen (Rapid) - Final Weight used for dosin.6 kg Estimated Creatinine Clearance: 50 ml/min Goal Trough: 10-15 mcg/mL Pharmacy Plan for Drug Dosing: The vanc trough level drawn at 07:20 today (approx 22.25 hrs after the previous dose) was 16.8, above goal range. If drawn closer to the 24-hr jose, it would have been closer to goal range, but since it has been at the upper level of goal range for the past few troughs, will decrease the dose to 1000mg q24h to start a few hours from now. Will recheck a trough before the 3rd new dose. Pharmacy Service will continue to monitor and adjust dosing as required. Follow-Up Labs: Trough Vancomycin Labs to be done on [date and time ordered]: 09/21/21 11:30
[2021-09-19] MEDS: 0.9% NaCl Peripheral Flush Adult/Peds IV ×2 (12:10→20:30)
[2021-09-19] MEDS: Vancomycin IV 1,000 MG/200 ML BAG 200 MG IV (12:10)
[2021-09-19] MEDS: Ascorbic Acid 500 MG Tablet 1000 MG PO (12:11)
[2021-09-19] MEDS: Ferrous Sulfate 325 MG Tablet PO (12:12)
[2021-09-19 16:52] VITALS: BP 129/63; PULSE 90; RESP 16; TEMP 36.7; O2SAT 97
[2021-09-19 18:48] VITALS: PULSE 90; RESP 16; O2SAT 97
[2021-09-19] MEDS: clonazePAM 0.5 MG Tablet PO (20:30)
[2021-09-19 20:33] VITALS: BP 144/84; PULSE 90
[2021-09-19] MEDS: Rosuvastatin Calcium 5 MG Tablet PO (20:34)
[2021-09-20] MEDS: busPIRone 5 MG Tablet PO ×3 (06:53→20:21)
--- NOTE | 2021-09-20 06:56 | NURSING ---
Pt. declined Premarin at this time, requests to have administered at , pharmacy communication sent requesting time change per pt. request
--- NOTE | 2021-09-20 07:50 | NURSING ---
Pharmacist called requesting clarification regarding Premarin, inquiring if it should be daily x7 days. on unit and notified of pharmacist request. Per continue Premarin weekly as ordered.
[2021-09-20 09:05] VITALS: BP 121/50; PULSE 74
[2021-09-20] MEDS: Metoprolol(XL)Succ 25 MG Tablet PO ×2 (09:05→20:00)
[2021-09-20] MEDS: Senna/Docusate Sodium 1 Tablet 2 TABLET PO ×2 (09:06→19:56)
[2021-09-20] MEDS: Mirabegron 25 MG TAB.ER.24H PO (09:06)
[2021-09-20] MEDS: Meloxicam 7.5 MG Tablet PO (09:06)
[2021-09-20] MEDS: Cholecalciferol (VIT D3) 25 MCG TABLET (1,000 UNITS) 50 MCG PO (09:06)
[2021-09-20] MEDS: buPROPion (XL) 150 MG TABLET.XL PO (09:06)
[2021-09-20] MEDS: Heparin Injection (Vial) 5,000 UNIT/ML VIAL 5000 UNIT SC ×2 (09:06→19:56)
[2021-09-20] MEDS: Pantoprazole Sodium 40 MG Tablet PO (09:06)
[2021-09-20] MEDS: Aspirin 81 MG TAB.CHEW PO (09:07)
[2021-09-20] MEDS: Vancomycin IV 1,000 MG/200 ML BAG 200 MG IV (11:40)
[2021-09-20] MEDS: Ondansetron ODT 4 MG Tablet PO (11:40)
[2021-09-20] MEDS: 0.9% NaCl Peripheral Flush Adult/Peds IV ×3 (11:41→16:11)
[2021-09-20] MEDS: Ferrous Sulfate 325 MG Tablet PO (11:51)
[2021-09-20] MEDS: Ascorbic Acid 500 MG Tablet 1000 MG PO (11:51)
[2021-09-20 13:08] VITALS: BP 126/56; PULSE 71; RESP 16; TEMP 36.7; O2SAT 97
[2021-09-20] MEDS: clonazePAM 0.5 MG Tablet PO (19:53)
[2021-09-20] MEDS: Rosuvastatin Calcium 5 MG Tablet PO (19:56)
[2021-09-20] MEDS: Estrogens,Conj. 1 Tube 0.625 DOSE VAGINAL (19:56)
[2021-09-20 20:00] VITALS: BP 121/53; PULSE 89
[2021-09-21] MEDS: 0.9% NaCl Peripheral Flush Adult/Peds IV ×3 (07:02→20:40)
[2021-09-21] MEDS: busPIRone 5 MG Tablet PO ×3 (07:03→20:23)
[2021-09-21] MEDS: Acetaminophen 500 MG Tablet 1000 MG PO (07:08)
[2021-09-21] MEDS: Heparin Injection (Vial) 5,000 UNIT/ML VIAL 5000 UNIT SC ×2 (08:56→20:19)
[2021-09-21] MEDS: Mirabegron 25 MG TAB.ER.24H PO (08:57)
[2021-09-21] MEDS: Aspirin 81 MG TAB.CHEW PO (08:57)
[2021-09-21] MEDS: Meloxicam 7.5 MG Tablet PO (08:57)
[2021-09-21] MEDS: Pantoprazole Sodium 40 MG Tablet PO (08:57)
[2021-09-21] MEDS: buPROPion (XL) 150 MG TABLET.XL PO (08:59)
[2021-09-21] MEDS: Cholecalciferol (VIT D3) 25 MCG TABLET (1,000 UNITS) 50 MCG PO (08:59)
[2021-09-21 09:03] VITALS: BP 100/35; PULSE 71
[2021-09-21] MEDS: Ascorbic Acid 500 MG Tablet 1000 MG PO (11:41)
[2021-09-21] MEDS: Ferrous Sulfate 325 MG Tablet PO (11:41)
[2021-09-21] MEDS: Vancomycin IV 1,000 MG/200 ML BAG 200 MG IV (11:57)
[2021-09-21 12:50] LABS: Vancomycin, Trough Level 14.7 ug/mL (5.0-15.0)
--- NOTE | 2021-09-21 13:23 | PCM.RX.CS ---
Consult Suspected Infection: Other - Infection of joint prosthesis (knee) Labs: Sodium 139 mmol/L (136-145) 09/15/21 05:24 Potassium 4.0 mmol/L (3.5-5.1) 09/15/21 05:24 Chloride 105 mmol/L (98-107) 09/15/21 05:24 Carbon Dioxide 30.0 mmol/L (21.0-32.0) 09/15/21 05:24 Anion Gap 4 (5-15) L 09/15/21 05:24 BUN 13 mg/dL (7-18) 09/15/21 05:24 Creatinine 0.88 mg/dL (0.55-1.02) 09/19/21 07:20 Est GFR (MDRD) Af Amer 80 mL/min (>60) 09/19/21 07:20 Est GFR (MDRD) Non-Af 66 mL/min (>60) 09/19/21 07:20 BUN/Creatinine Ratio 15.3 RATIO (10-20) 09/15/21 05:24 Glucose 100 mg/dL (74-106) 09/15/21 05:24 Vancomycin Trough 14.7 ug/mL (5.0-15.0) 09/21/21 11:31 Microbiology: Microbiology 09/14/21 Unknown Nasal Secretion SARS-CoV-2 Antigen (Rapid) - Final Goal Trough: 10-15 mcg/mL Pharmacy Plan for Drug Dosing: VANCOMYCIN LEVEL RECEIVED Current Vancomycin Dose: 1000mg Q24H Number of Doses Received: 2 since dose previous adjustment Vancomycin Level: 14.7 Hours Since Last Dose: ~24 Renal Function: sCr 0.88 (09/19/21), no chemistry panel drawn since previous adjustment Renal Function Trend: N/A Vancomycin Plan/Comments: Continue Vancomycin 1000mg Q24H Pending Level: Vancomycin trough @ 1130 09/25/21 Pharmacy Service will continue to monitor and adjust dosing as required. Labs to be done on [date and time ordered]: Vancomycin trough @ 1130 09/25/21
--- NOTE | 2021-09-21 13:57 | NURSING ---
R' TEARFUL. WHEN ASKED, SHE STATES THAT SHE IS UPSET OVER HER . SON CALLED HER TODAY IN REGARDS TO FINANCES REGARDING . 1:! SUPPORT GIVEN. OFFERED TO CALL VIDEO OPERATOR BUT DECLINED AT THIS TIME. SHE IS CONTACT WITH HER SON.
[2021-09-21 14:45] VITALS: BP 115/54; PULSE 69; RESP 17; TEMP 36.3; O2SAT 96
--- NOTE | 2021-09-21 16:06 | CASEMGMT ---
Social Work Pt presented to social work office tearful and expressed being overwhelmed. Provided emotional support. Pt stated she thinks it's time to discuss hospice for her and wanted assistance. SW commended pt for reaching out for help and SW will definitely assist. Gathered further information from what pt knew, which was not clear. Offered to contact SW at [facility] to get updates. Pt agreed. SW to follow up with pt to plan further tomorrow. Pt appreciative. Spoke with RADHA Camejo at [facility]. She provided a thorough update of 's condition - IDT is recommending hospice and starting to suggest get a plan in place for when his insurance cuts him. She explained their hospice agencies are typically [facility]. She explained [facility] uses the same medical reviewer as the [facility], so a seamless transition in care, and [facility] offers 18/03 1:1 end of life support with pt. This worker thanked SW for assistance and will keep her updated with 's wishes. SKYLER Uribe
--- NOTE | 2021-09-21 16:28 | CHAPLAIN ---
Type of Pastoral Visit ___ Initial Visit _x__ Follow-up Visit ___ On-call Visit ___ General Patient Visit ___ Spiritual Assessment ___ Family Conference ___ Bereavement ___ Rapid Response ___ Code Blue ___ Other (describe below) Pastoral Care Referral From _x__ Patient ___ Family ___ Nurse ___ Physician ___ Church Worker ___ Automotive Technician ___ Other (describe below) Sacrament/Intervention _x__ Active listening ___ Anointing ___ Methodist ___ Bereavement ___ Communion ___ Janel exploration ___ ___ Life review _x__ Prayer ___ Reconciliation ___ Sacrament of Sick _x__ Supportive presence ___ Wedding ___ Other (describe below) Pastoral Comments planned to visit with this patient as a follow up to previous meetings; found that her own psychiatric registered nurse was visiting in the room and pt offered information that very difficult decisions are needed as patient begins to cry; pt spouse has need of physical care and pt is unable to provide such at this time; pt has anxiety about such but is also getting support at this time from her psychiatric registered nurse and from this corporate legal manager; prayer is given and offer of future care
--- NOTE | 2021-09-21 17:47 | NURSING ---
R' BACK FROM APPT WITH ORTHO. NO NEW ORDERS. SON IS GOING TO CALL UNIT WITH NEXT APPT DATE.
[2021-09-21 20:19] VITALS: BP 116/48; PULSE 74
[2021-09-21] MEDS: Rosuvastatin Calcium 5 MG Tablet PO (20:19)
[2021-09-21] MEDS: Senna/Docusate Sodium 1 Tablet 2 TABLET PO (20:19)
[2021-09-21] MEDS: Metoprolol(XL)Succ 25 MG Tablet PO (20:19)
[2021-09-21] MEDS: clonazePAM 0.5 MG Tablet PO (20:22)
[2021-09-22 05:43] LABS: Absolute Lymphocyte Count 1.05 X10^3/uL (0.83-4.51); Absolute Neutrophil Count 4.6 X10^3/uL (2.0-7.7); Basophil# 0.02 X10^3/uL; Basophil% 0.3 % (0-1); Eosinophil# 0.57 X10^3/uL; Eosinophils% 8.2 % (0-5); Hematocrit 32.2 % (37-47); Lymphocyte # 1.05 X10^3/ul (0.83-4.51); Lymphocyte % 15.2 % (19-41); Mean Corp Hgb Conc 31.1 g/dL (32-36); Mean Corpuscular Hgb 26.6 pg (27.0-32.0); Mean Corpuscular Volume 85.6 fL (81-99); Mean Platelet Vol. 9.5 fl (6.2-12.0); Monocyte# 0.59 X10^3/uL; Monocyte% 8.5 % (0-10); NRBC Flagged by Analyzer 0 % (0-5); Neutrophil # 4.64 X10^3/uL (2.7-7.7); Neutrophil % 67.1 % (47-70); Platelet Count 253 K/mm3 (150-450); RBC Distribution Width SD 62.3 fl (35.1-43.9); Red Blood Count 3.76 M/mm3 (4.2-5.4); White Blood Count 6.9 K/mm3 (4.4-11.0)
[2021-09-22 06:12] LABS: Anion Gap 4 (5-15); BUN 22 mg/dL (7-18); BUN/Creat Ratio 19.8 RATIO (10-20); Calcium,Total 8.8 mg/dL (8.5-10.1); Chloride 105 mmol/L (98-107); Creatinine, Serum 1.11 mg/dL (0.55-1.02); EST Glomerular Filtration Rate 51 mL/min (>60); Est Glom Filt Rate - Afr Amer 61 mL/min (>60); Estimated Creatinine Clearance 39.73 ml/min; Glucose 110 mg/dL (74-106); Potassium 4.3 mmol/L (3.5-5.1); Sodium Level 140 mmol/L (136-145)
[2021-09-22] MEDS: Heparin Injection (Vial) 5,000 UNIT/ML VIAL 5000 UNIT SC ×2 (08:48→20:26)
[2021-09-22 08:49] VITALS: BP 143/63; PULSE 95
[2021-09-22] MEDS: Meloxicam 7.5 MG Tablet PO (08:49)
[2021-09-22] MEDS: busPIRone 5 MG Tablet PO ×3 (08:49→20:27)
[2021-09-22] MEDS: Cholecalciferol (VIT D3) 25 MCG TABLET (1,000 UNITS) 50 MCG PO (08:49)
[2021-09-22] MEDS: buPROPion (XL) 150 MG TABLET.XL PO (08:49)
[2021-09-22] MEDS: Metoprolol(XL)Succ 25 MG Tablet PO ×2 (08:49→20:29)
[2021-09-22] MEDS: Aspirin 81 MG TAB.CHEW PO (08:49)
[2021-09-22] MEDS: Pantoprazole Sodium 40 MG Tablet PO (08:50)
[2021-09-22] MEDS: Mirabegron 25 MG TAB.ER.24H PO (08:50)
--- NOTE | 2021-09-22 11:30 | NURSING ---
Dr Flowers here for consult. Resident's rash faded at this time but she states it was bright red last night. Denies any other symptoms. Dr Flowers gives verbal order to pretreat resident with Benadryl and then infuse Vancomycin at half speed. Orders entered.
--- NOTE | 2021-09-22 11:50 | PCM.CONS.GEN ---
Assessment & Plan Assessment/Plan (1) Infection of prosthetic left knee joint: PLAN: L knee MRSA PJI, s/p spacer placement at [facility] 08/21/21, plan on iv vanc until 10/02/21. New rash, history and appearance not consistent with Red Man syndrome, ? new detergent. Will give vanc at half speed and pretreat with benadryl to see if this helps. Pt got covid booster during admission here. Will follow as needed, please call with any new issues, thank you, d/w nursing HPI Consult Data Date of Consult: 09/22/21 HPI Narrative HPI Narrative: MEREDITH MARRERO, is a 76 F who presented to rehab unit then TCU s/p 08/21 L knee I&D and spacer placement at [facility]. Original L TKA in 12/2020, never felt right, had ongoing pain and swelling. No fever, no drainage. Had re-eval, then taken to OR. Discharged with picc and 6 week course of vanc, stop date 10/02/21. Feeling ok, pain improved, knee healing well, no n/v/d, no issues with picc. Reports a few days of some rash on chest, some new macules on arms last night. Gets vanc dose at noon. Thinks she recently had some clothes washed with new detergent. No itching, no pain with the rash. Full ROS performed and neg except as noted above. [facility] Medical History Anxiety and depression Asthma CAD (coronary artery disease) Diverticulosis GERD (gastroesophageal reflux disease) Grade I diastolic dysfunction History of gastrointestinal bleeding HTN (hypertension) Hyperlipidemia IBS (irritable bowel syndrome) Iron deficiency anemia Nonrheumatic mitral valve regurgitation RAVIN (obstructive sleep apnea) Osteoarthritis Peripheral neuropathy Prosthetic joint infection Pulmonary HTN Pulmonary nodules Seasonal allergies Urge urinary incontinence Home Medications lansoprazole [Prevacid] 30 mg PO DAILY #0 10/07/13 [History Last Taken 10/06/13] acetaminophen 1,000 mg PO Q8H PRN PRN #0 tab 09/06/21 [Rx Last Taken Unknown] albuterol sulfate [Ventolin HFA] 2 puff INHALATION Q6H PRN PRN #0 g 09/06/21 [Rx Last Taken Unknown] benzocaine-menthol [Cepacol Sore Throat (inga-men)] 1 aissatou MUCOUS MEMBRANE Q2H PRN PRN #0 ea 09/06/21 [Rx Last Taken Unknown] bisacodyl 10 mg IN .PRN X 1 PRN #0 ea 09/06/21 [Rx Last Taken Unknown] fluticasone propionate 1 spray NASAL DAILY PRN #0 g 09/06/21 [Rx Last Taken Unknown] heparin, porcine (PF) 50 units IV UD PRN #0 ml 09/06/21 [Rx Last Taken Unknown] heparin, porcine (PF) 50 units IV UD PRN #0 ml 09/06/21 [Rx Last Taken Unknown] heparin, porcine (PF) 50 units IV UD PRN #0 ml 09/06/21 [Rx Last Taken Unknown] magnesium hydroxide 30 ml PO .PRN X 1 PRN #0 ml 09/06/21 [Rx Last Taken Unknown] ondansetron HCl 4 mg PO Q8H PRN PRN #0 tab 09/06/21 [Rx Last Taken Unknown] saliva substitute combo no.9 [Biotene Dry Mouth Oral Rinse] 15 ml MUCOUS MEMBRANE 5X/DAY PRN #0 ml 09/06/21 [Rx Last Taken Unknown] sodium chloride 0.9 % (flush) [BD PosiFlush Normal Saline 0.9] 10 - 40 ml IV UD PRN #0 ml 09/06/21 [Rx Last Taken Unknown] B complex with C 20-folic acid [Virt-Caps] 1 cap PO DAILY 09/07/21 [History Last Taken Unknown] Pharmacy Consult 1 ea NOTE X1 PRN 09/07/21 [History Last Taken Unknown] ascorbic acid (vitamin C) 1,000 mg PO LUNCH 09/07/21 [History Last Taken Unknown] aspirin 81 mg PO BREAKFAST 09/07/21 [History Last Taken Unknown] bupropion HCl 150 mg PO DAILY 09/07/21 [History Last Taken Unknown] buspirone 5 mg PO TID 09/07/21 [History Last Taken Unknown] cholecalciferol (vitamin D3) 50 mcg PO DAILY 09/07/21 [History Last Taken Unknown] clonazepam 0.5 mg PO 2100 09/07/21 [History Last Taken Unknown] conjugated estrogens [Premarin] 0.625 dose VAGINAL 2000 09/07/21 [History Last Taken Unknown] conjugated estrogens [Premarin] 0.625 dose VAGINAL Q7D 09/07/21 [History Last Taken Unknown] ferrous sulfate [FeroSul] 325 mg PO DAILY@1200 09/07/21 [History Last Taken Unknown] food supplemt, lactose-reduced [Ensure Compact] 118 ml PO TIDCM 09/07/21 [History Last Taken Unknown] heparin (porcine) 5,000 unit SUBCUT Q12 09/07/21 [History Last Taken Unknown] meloxicam 7.5 mg PO DAILY 09/07/21 [History Last Taken Unknown] metoprolol succinate 25 mg PO BID 09/07/21 [History Last Taken Unknown] pantoprazole 40 mg PO DAILY 09/07/21 [History Last Taken Unknown] rosuvastatin [Crestor] 5 mg PO QHS 09/07/21 [History Last Taken Unknown] sennosides-docusate sodium [Stool Softener-Stimulant Laxat] 2 tab PO BID 09/07/21 [History Last Taken Unknown] vibegron [Gemtesa] 75 mg PO DAILY 09/07/21 [History Last Taken Unknown] Allergy/AdvReac Type Severity Reaction Status Date / Time Penicillins [PCN] Allergy red/rash Verified 04/21/21 10:00 at injection site promethazine HCl Allergy Unknown Verified 04/21/21 10:00 [From Phenergan] Uwyrrhd-VUY-XdK Reductase Allergy Other Verified 04/21/21 10:00 Inhibitor [Auxxesy-Sxv-Heg Reductase Inhibitor] Sulfa (Sulfonamide Allergy Swelling Verified 04/21/21 10:00 Antibiotics) Family History Grandfather Cancer paternal GF Grandfather Cancer maternal GF Father CAD (coronary artery disease) Diabetes Grandmother No problems noted. 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 housing: house Smoking Status: Never smoker alcohol intake: never substance use type: does not use Physical Exam Const alert, oriented x3 and no apparent distress General Appearance: cooperative Exam Limitations: no limitations HEENT normocephalic and head/scalp atraumatic Eyes PERRL and EOMs intact bilaterally Neck supple and No nodes Resp normal air movement and clear to auscultation bilaterally Cardio regular rate and regular rhythm GI normal to inspection, nondistended, normoactive bowel sounds Extremity no clubbing, cyanosis or edema Skin Skin Narrative: faint macules on trunk and arms/legs. L knee incision well healed. Neuro CN's II-XII intact bilaterally Psych mental status grossly normal Medical Records Data Medical Nutrition Assessment Dietitian: Malnutrition Criteria Met Start: 09/08/21 10:24 Freq: Status: Active Protocol: Document 09/20/21 17:15 [facility] (Rec: 09/20/21 17:15 [facility] [id number]) Nutrition Malnutrition Evidence of Malnutrition Exists Yes Malnutrition (severe): Chronic Evidenced By Suboptimal Energy Intake ( Moderate),Weight Loss (Severe) ,Physical Changes (Moderate) Clinical Problem Chronic Disease or Condition Related Malnutrition Etiology related to L knee replacement surgery in December 2020 leaving res with no appetite Signs/Symptoms as evidenced by <50% po intake x > 1 mo supervisor irrigation and 15.3% wt loss x 8 mo supervisor irrigation. Res noted to have fat/muscle loss in temporal/orbital areas, clavicle and upper arms. (po intake appears to be improving and wt stable since last review) Status Active Problem Recommendation Dietitian Recommendations/Changes Continue liberalized diet of Regular with small portions Discontinue ensure compact tid w/ medpass d/t frequent refusals Rec consider appetite stimulant to help encourage increased po intake at meals if po intake worsens. Lab / Micro Data Result Diagrams: 09/22/21 05:23 09/22/21 05:23 Labs: Laboratory Results - last 24 hr 09/21/21 11:31: Vancomycin Trough 14.7 09/22/21 05:23: WBC 6.9, RBC 3.76 L, Hgb 10.0 L, Hct 32.2 L, MCV 85.6, MCH 26.6 L, MCHC 31.1 L, RDW Std Deviation 62.3 H, RDW Coeff of Kaden 20.0 H, Plt Count 253, MPV 9.5, Immature Gran % (Auto) 0.700, Neut % (Auto) 67.1, Lymph % (Auto) 15.2 L, Howard % (Auto) 8.5, Eos % (Auto) 8.2 H, Baso % (Auto) 0.3, Absolute Neuts (auto) 4.6, Absolute Lymphs (auto) 1.05, Nucleated RBC % 0 09/22/21 05:23: Sodium 140, Potassium 4.3, Chloride 105, Carbon Dioxide 31.0, Anion Gap 4 L, BUN 22 H, Creatinine 1.11 H, Estim Creat Clear Calc 39.73, Est GFR (MDRD) Af Amer 61, Est GFR (MDRD) Non-Af 51 L, BUN/Creatinine Ratio 19.8, Glucose 110 H, Calcium 8.8 Micro: Microbiology 09/21/21 14:06 Nasal Secretion SARS-CoV-2 Antigen (Rapid) - Final
[2021-09-22] MEDS: DiphenhydrAMINE 25 MG Capsule PO (11:54)
--- NOTE | 2021-09-22 12:00 | NURSING ---
Upon entering room, resident is crying. States she got word that her is not doing well and she needs to decide if he should be placed on hospice. Asking if there is anything she can take to help with this. Instructed that she is already on Wellbutrin and received this AM and is now going to be given Benadryl which might make her sleepy. She is ok trying this now and will reassess her need for something more at a later time. Door shut to room per her request for privacy.
[2021-09-22] MEDS: Vancomycin IV 1,000 MG/200 ML BAG 100 MG IV (12:34)
[2021-09-22] MEDS: 0.9% NaCl Peripheral Flush Adult/Peds IV (12:35)
[2021-09-22] MEDS: Ferrous Sulfate 325 MG Tablet PO (12:40)
[2021-09-22] MEDS: Ascorbic Acid 500 MG Tablet 1000 MG PO (12:40)
[2021-09-22 15:27] VITALS: BP 142/67; PULSE 78; RESP 20; TEMP 36.6; O2SAT 97
--- NOTE | 2021-09-22 15:34 | CASEMGMT ---
Social Work Spoke with pt to follow up on information obtained from [facility]. Pt interested in speaking to pt on the phone and will coordinate with sister when to call. She is interested in meeting with [facility] and [facility] companies. Pt wants husbands 3 children and brother, along with her sister and production hand involved in the hospice decision making process. Pt wants to personally call the brother, but agreeable to have the [facility] to contact 's children. Pt stated she can liquidate annuities (about $40k) to pay privately at [facility] once insurance is done/hospice starts. She will contact sec accountant to coordinate. Pt tearful. Provided ongoing emotional and verbal support. Explained further the potential benefits of hospice for . Pt is available to meet with [facility] on 09/25 at 9:30 am and will notify the support people she wants at that meeting with her. [facility] to contact this worker to schedule meeting week of 09/25. Contacted [facility] - left message with update on pt's requests and to send clinical information to both hospice agencies to review prior to meeting. SW to continue to follow. SKYLER UribeW
[2021-09-22] MEDS: Acetaminophen 500 MG Tablet 1000 MG PO (17:28)
[2021-09-22] MEDS: clonazePAM 0.5 MG Tablet PO (20:27)
[2021-09-22] MEDS: Rosuvastatin Calcium 5 MG Tablet PO (20:27)
[2021-09-22 20:29] VITALS: BP 131/48; PULSE 88
[2021-09-23 08:00] VITALS: BP 130/65; PULSE 91
[2021-09-23] MEDS: Cholecalciferol (VIT D3) 25 MCG TABLET (1,000 UNITS) 50 MCG PO (08:00)
[2021-09-23] MEDS: Aspirin 81 MG TAB.CHEW PO (08:00)
[2021-09-23] MEDS: Mirabegron 25 MG TAB.ER.24H PO (08:00)
[2021-09-23] MEDS: busPIRone 5 MG Tablet PO ×3 (08:00→22:00)
[2021-09-23] MEDS: Pantoprazole Sodium 40 MG Tablet PO (08:00)
[2021-09-23] MEDS: buPROPion (XL) 150 MG TABLET.XL PO (08:00)
[2021-09-23] MEDS: Heparin Injection (Vial) 5,000 UNIT/ML VIAL 5000 UNIT SC ×2 (08:00→20:00)
[2021-09-23] MEDS: Meloxicam 7.5 MG Tablet PO (08:00)
[2021-09-23] MEDS: Metoprolol(XL)Succ 25 MG Tablet PO ×2 (08:00→20:00)
[2021-09-23] MEDS: DiphenhydrAMINE 25 MG Capsule PO (11:00)
[2021-09-23] MEDS: Vancomycin IV 1,000 MG/200 ML BAG 100 MG IV (12:00)
[2021-09-23] MEDS: Ferrous Sulfate 325 MG Tablet PO (12:00)
[2021-09-23] MEDS: Ascorbic Acid 500 MG Tablet 1000 MG PO (12:00)
[2021-09-23 20:00] VITALS: BP 129/68; PULSE 73
[2021-09-23] MEDS: Rosuvastatin Calcium 5 MG Tablet PO (20:00)
[2021-09-23] MEDS: clonazePAM 0.5 MG Tablet PO (21:00)
[2021-09-24 08:52] VITALS: BP 148/55; PULSE 87
[2021-09-24] MEDS: Metoprolol(XL)Succ 25 MG Tablet PO (08:52)
[2021-09-24] MEDS: busPIRone 5 MG Tablet PO ×3 (08:53→20:29)
[2021-09-24] MEDS: Aspirin 81 MG TAB.CHEW PO (08:53)
[2021-09-24] MEDS: Meloxicam 7.5 MG Tablet PO (08:53)
[2021-09-24] MEDS: Pantoprazole Sodium 40 MG Tablet PO (08:53)
[2021-09-24] MEDS: Mirabegron 25 MG TAB.ER.24H PO (08:53)
[2021-09-24] MEDS: Cholecalciferol (VIT D3) 25 MCG TABLET (1,000 UNITS) 50 MCG PO (08:54)
[2021-09-24] MEDS: Heparin Injection (Vial) 5,000 UNIT/ML VIAL 5000 UNIT SC ×2 (08:54→20:30)
[2021-09-24] MEDS: buPROPion (XL) 150 MG TABLET.XL PO (08:55)
[2021-09-24] MEDS: DiphenhydrAMINE 25 MG Capsule PO (10:39)
[2021-09-24] MEDS: Vancomycin IV 1,000 MG/200 ML BAG 100 MG IV (12:20)
[2021-09-24] MEDS: Ferrous Sulfate 325 MG Tablet PO (12:21)
[2021-09-24] MEDS: Ascorbic Acid 500 MG Tablet 1000 MG PO (12:21)
[2021-09-24 13:20] VITALS: PULSE 79; RESP 16; O2SAT 96
[2021-09-24 13:29] VITALS: BP 131/56; PULSE 79; RESP 18; TEMP 37.1; O2SAT 96
[2021-09-24] MEDS: Rosuvastatin Calcium 5 MG Tablet PO (20:30)
[2021-09-24] MEDS: clonazePAM 0.5 MG Tablet PO (20:33)
[2021-09-24 20:35] VITALS: BP 122/48; PULSE 83
[2021-09-25] MEDS: Aspirin 81 MG TAB.CHEW PO (08:41)
[2021-09-25] MEDS: Pantoprazole Sodium 40 MG Tablet PO (08:41)
[2021-09-25] MEDS: Mirabegron 25 MG TAB.ER.24H PO (08:41)
[2021-09-25] MEDS: busPIRone 5 MG Tablet PO ×3 (08:41→21:26)
[2021-09-25 08:42] VITALS: BP 137/56; PULSE 94
[2021-09-25] MEDS: Metoprolol(XL)Succ 25 MG Tablet PO ×2 (08:42→20:29)
[2021-09-25] MEDS: Cholecalciferol (VIT D3) 25 MCG TABLET (1,000 UNITS) 50 MCG PO (08:42)
[2021-09-25] MEDS: Heparin Injection (Vial) 5,000 UNIT/ML VIAL 5000 UNIT SC ×2 (08:42→20:32)
[2021-09-25] MEDS: Meloxicam 7.5 MG Tablet PO (08:42)
[2021-09-25] MEDS: buPROPion (XL) 150 MG TABLET.XL PO (08:42)
[2021-09-25] MEDS: Ferrous Sulfate 325 MG Tablet PO (11:18)
[2021-09-25] MEDS: DiphenhydrAMINE 25 MG Capsule PO (11:18)
[2021-09-25] MEDS: Ascorbic Acid 500 MG Tablet 1000 MG PO (11:18)
[2021-09-25 12:22] LABS: Vancomycin, Trough Level 16.6 ug/mL (5.0-15.0)
[2021-09-25] MEDS: Vancomycin IV 1,000 MG/200 ML BAG 100 MG IV (12:51)
--- NOTE | 2021-09-25 13:32 | PCM.RX.CS ---
Consult Pharmacy has been consulted to manage selected antiobiotic: Vancomycin Type of Consult: Follow-up Labs: Sodium 140 mmol/L (136-145) 09/22/21 05:23 Potassium 4.3 mmol/L (3.5-5.1) 09/22/21 05:23 Chloride 105 mmol/L (98-107) 09/22/21 05:23 Carbon Dioxide 31.0 mmol/L (21.0-32.0) 09/22/21 05:23 Anion Gap 4 (5-15) L 09/22/21 05:23 BUN 22 mg/dL (7-18) H 09/22/21 05:23 Creatinine 1.11 mg/dL (0.55-1.02) H 09/22/21 05:23 Est GFR (MDRD) Af Amer 61 mL/min (>60) 09/22/21 05:23 Est GFR (MDRD) Non-Af 51 mL/min (>60) L 09/22/21 05:23 BUN/Creatinine Ratio 19.8 RATIO (10-20) 09/22/21 05:23 Glucose 110 mg/dL (74-106) H 09/22/21 05:23 Vancomycin Trough 16.6 ug/mL (5.0-15.0) H 09/25/21 11:43 Microbiology: Microbiology 09/21/21 14:06 Nasal Secretion SARS-CoV-2 Antigen (Rapid) - Final 09/14/21 Unknown Nasal Secretion SARS-CoV-2 Antigen (Rapid) - Final Goal Trough: 10-15 mcg/mL Pharmacy Plan for Drug Dosing: VANCOMYCIN LEVEL RECEIVED Current Vancomycin Dose: 1000mg q24h (1200) Number of Doses Received: x7 doses Vancomycin Level: 16.6 (goal trough 10-15) Hours Since Last Dose: 11.5 hours Renal Function: Renal Function Trend: Lab/Micro: Vancomycin Plan/Comments: recommend decreasing dose to 750mg q24h starting 09/26/21 at 1200. checking trough before the 3rd dose Pending Level: 09/28/21 at 1130 Pharmacy Service will continue to monitor and adjust dosing as required. Follow-Up Labs: Trough Vancomycin - 09/28/21 at 1130
--- NOTE | 2021-09-25 13:47 | NURSING ---
Patient will start Vancomycin 750mg at noon 09/26. Lab results were 16.6. Patient aware of medication changes.
--- NOTE | 2021-09-25 15:15 | CASEMGMT ---
Social Work Followed up with pt after hospice meeting. Pt would like to find out more information on patients condition. Pt agreeable to speak directly to Daya DOUGLASS. Contacted Daya DOUGLASS and provided pt contact information to talk to pt directly. RAFAT will assist as needed and continue to provide support to pt. Discussed patient's DC for 10/03. Pt agreeable to use outpatient PT/OT at [place]. Referral made. Sister to transport. No DME needs. Plan: DC home to [facility] with outpatient PT/OT 10/03 SKYLER UribeW
[2021-09-25 16:56] VITALS: BP 136/64; PULSE 82; RESP 16; TEMP 36.7; O2SAT 95
--- NOTE | 2021-09-25 17:13 | CHAPLAIN ---
Type of Pastoral Visit ___ Initial Visit _x__ Follow-up Visit ___ On-call Visit ___ General Patient Visit ___ Spiritual Assessment ___ Family Conference ___ Bereavement ___ Rapid Response ___ Code Blue ___ Other (describe below) Pastoral Care Referral From _x__ Patient ___ Family ___ Nurse ___ Physician ___ Alumni Relations Manager ___ School Clerk ___ Other (describe below) Sacrament/Intervention _x__ Active listening ___ Anointing ___ Faith ___ Bereavement ___ Communion ___ Janel exploration ___ ___ Life review _x__ Prayer ___ Reconciliation ___ Sacrament of Sick _x__ Supportive presence ___ Wedding ___ Other (describe below) Pastoral Comments follow up after encounter last week when patient was distraught about condition and decisions for her
--- NOTE | 2021-09-25 19:42 | DS.PCM_ITS ---
Providers Date of Admission: 09/07/21 Primary Care Physician: BILLY Alvarez Consultations 09/22/21 07:51 Consult: Infectious Disease Routine Consulting Provider: Chilo Leo Reason for Consult: Vancomycin rash? EMERGENT Consult: No MD Notified: Yes Date Notified: 09/22/21 Time Notified: 07:51 Method of Notification: Answering Service Reason For Visit: LT PROSTHETIC JOINT INFECTION Diagnosis Discharge Diagnosis (1) Infection of prosthetic left knee joint: Status: Acute Code(s): T84.54XA - Infection and inflammatory reaction due to internal left knee prosthesis, initial encounter Medications at Discharge Home Medications acetaminophen 1,000 mg PO Q8H PRN PRN #0 tab 09/06/21 albuterol sulfate [Ventolin HFA] 2 puff INHALATION Q6H PRN PRN #0 g 09/06/21 fluticasone propionate 1 spray NASAL DAILY PRN #0 g 09/06/21 Gemtesa 75 mg PO DAILY 09/07/21 Premarin 0.625 dose VAGINAL Q7D 09/07/21 ascorbic acid (vitamin C) 1,000 mg PO LUNCH 09/07/21 aspirin 81 mg PO BREAKFAST 09/07/21 bupropion HCl 150 mg PO DAILY 09/07/21 buspirone 5 mg PO TID 09/07/21 cholecalciferol (vitamin D3) 50 mcg PO DAILY 09/07/21 clonazepam 0.5 mg PO 2100 09/07/21 meloxicam 7.5 mg PO DAILY 09/07/21 metoprolol succinate 25 mg PO BID 09/07/21 rosuvastatin [Crestor] 5 mg PO QHS 09/07/21 ferrous sulfate [FeroSul] 325 mg PO DAILY@1200 30 Days #30 tab 09/25/21 pantoprazole 40 mg PO DAILY 30 Days #30 tab 09/25/21 Hospital Course Operations - (Left knee explant, antibiotic spacer placement.) Procedures None Summary of Care Provided Minutes Spent on Discharge: 35 Hospital Course: 76 year old female with below past medical history hospitalized for MRSA left prosthetic knee infection, underwent left knee explant, antibiotic spacer placement 08/21/[address] Calderon, admitted to , then TCU with debility, here for rehabilitation, strengthening, intravenous antibiotics, prior to discharge home alone. Discharge home to [facility] 10/03/2021, Outpatient PT/OT. Physical Exam Const alert and oriented x3 General Appearance: cooperative HEENT normocephalic Eyes PERRL and EOMs intact bilaterally Neck supple, no JVD and no carotid bruits Resp normal respiratory effort, normal air movement and clear to auscultation bilaterally Cardio regular rate and regular rhythm GI normal to inspection, nondistended, normoactive bowel sounds, non-tender and non-distended Extremity normal capillary refill General Extremity: Negative for edema Skin no rashes or lesions noted General Skin Exam: no breakdown Psych affect normal Appearance: appropriate Medical Records Data Medical Nutrition Assessment Dietitian: Malnutrition Criteria Met Start: 09/08/21 10:24 Freq: Status: Active Protocol: Document 09/20/21 17:15 [facility] (Rec: 09/20/21 17:15 [facility] [id number]) Nutrition Malnutrition Evidence of Malnutrition Exists Yes Malnutrition (severe): Chronic Evidenced By Suboptimal Energy Intake ( Moderate),Weight Loss (Severe) ,Physical Changes (Moderate) Clinical Problem Chronic Disease or Condition Related Malnutrition Etiology related to L knee replacement surgery in December 2020 leaving res with no appetite Signs/Symptoms as evidenced by <50% po intake x > 1 mo gaggerman and 15.3% wt loss x 8 mo gaggerman. Res noted to have fat/muscle loss in temporal/orbital areas, clavicle and upper arms. (po intake appears to be improving and wt stable since last review) Status Active Problem Recommendation Dietitian Recommendations/Changes Continue liberalized diet of Regular with small portions Discontinue ensure compact tid w/ medpass d/t frequent refusals Rec consider appetite stimulant to help encourage increased po intake at meals if po intake worsens. Weight / BMI Weight Weight: 77.791 kg Body Mass Index (BMI) 27.4 ABG / Lab / Microbiology Data Result Diagrams: 09/22/21 05:23 09/22/21 05:23 Laboratory: Laboratory Results - last 24 hr 09/25/21 11:43: Vancomycin Trough 16.6 H Microbiology: Microbiology 09/21/21 14:06 Nasal Secretion SARS-CoV-2 Antigen (Rapid) - Final 09/14/21 Unknown Nasal Secretion SARS-CoV-2 Antigen (Rapid) - Final D/C Instructions Discharge Diet: No restrictions Discharge Activity: Return to Normal Activity, May Shower and Use Walker Weight Bearing Status: Weight bearing as tolerated Call your doctor if you observe: Fever of 101 or Higher, Inability to urinate, Inability to have a bowel movement, Shortness of breath, Dizziness, Fainting spells, Swelling in the ankles, Chest pain and Uncontrolled pain Additional Instructions: Discharge home to [facility] 10/03/2021, Outpatient PT/OT. Please Follow Up With: Yash Kwan, When: As scheduled. Meaningful Use Info Meaningful Use Diagnoses (Choose all that apply): None applicable Discharge Plan Admission Admit Date/Time: 09/07/21 10:12 Primary Reason for Your Visit: Debility. Attending Provider: Jack Littlejohn Chi Primary Care Provider: Layla Bellamy Consulting Providers: Chilo Leo Instructions Additional Instructions / Restrictions: Discharge home to [facility] 10/03/2021, Outpatient PT/OT. Discharge Orders/Prescriptions Prescriptions: Continued acetaminophen 500 mg Tablet 1,000 mg PO Q8H PRN PRN (Reason: Pain Score 1-10) Qty: 0 RF: 0 fluticasone propionate 50 mcg/actuation [place],Suspension 1 spray NASAL DAILY PRN (Reason: CONGESTION) Qty: 0 RF: 0 albuterol sulfate [Ventolin HFA] 90 mcg/actuation Hfa Aerosol Inhaler 2 puff inhalation Q6H PRN PRN (Reason: Sob &/Or Wheezing) Qty: 0 RF: 0 buspirone 5 mg tablet 5 mg PO TID RF: 0 clonazepam 0.5 mg tablet 0.5 mg PO 2100 RF: 0 meloxicam 7.5 mg tablet 7.5 mg PO DAILY RF: 0 ascorbic acid (vitamin C) 500 mg tablet 1,000 mg PO LUNCH RF: 0 Premarin 0.625 mg/gram cream 0.625 dose vaginal Q7D RF: 0 aspirin 81 mg tablet,chewable 81 mg PO BREAKFAST RF: 0 metoprolol succinate 25 mg tablet extended release 24 hr 25 mg PO BID RF: 0 rosuvastatin [Crestor] 5 mg tablet 5 mg PO QHS RF: 0 bupropion HCl 150 mg tablet extended release 24 hr 150 mg PO DAILY RF: 0 cholecalciferol (vitamin D3) 25 mcg (1,000 unit) tablet 50 mcg PO DAILY RF: 0 Gemtesa 75 mg tablet 75 mg PO DAILY RF: 0 pantoprazole 40 mg tablet,delayed release (DR/EC) 40 mg PO DAILY 30 Days Qty: 30 RF: 0 ferrous sulfate [FeroSul] 325 mg (65 mg iron) tablet 325 mg PO DAILY@1200 30 Days Qty: 30 RF: 0 Discontinued lansoprazole [Prevacid] 30 MG capsule 30 mg PO DAILY Qty: 0 RF: 0 Hold Instructions: She can resume Prevacid when she is discharged from TCU. While in TCU she will continue Protonix bisacodyl 10 mg Suppository 10 mg LA .PRN X 1 PRN (Reason: Constipation) Qty: 0 RF: 0 sodium chloride 0.9 % (flush) [BD PosiFlush Normal Saline 0.9] Syringe 10 - 40 ml IV UD PRN (Reason: Open End PICC Flush) Qty: 0 RF: 0 Cepacol Sore Throat (inga-men) 15-3.6 mg Lozenge 1 aissatou mucous membrane Q2H PRN PRN (Reason: dry mouth/sore throat) Qty: 0 RF: 0 ondansetron HCl 8 mg Tablet 4 mg PO Q8H PRN PRN (Reason: Nausea/Vomiting) Qty: 0 RF: 0 magnesium hydroxide 400 mg/5 mL Suspension 30 ml PO .PRN X 1 PRN (Reason: Constipation) Qty: 0 RF: 0 heparin, porcine (PF) 10 unit/mL Syringe 50 units IV UD PRN (Reason: PICC Line Heparin Flush) Qty: 0 RF: 0 heparin, porcine (PF) 10 unit/mL Syringe 50 units IV UD PRN (Reason: PICC Line Heparin Flush) Qty: 0 RF: 0 heparin, porcine (PF) 10 unit/mL Syringe 50 units IV UD PRN (Reason: PICC Line Heparin Flush) Qty: 0 RF: 0 Biotene Dry Mouth Oral Rinse Mouthwash 15 ml mucous membrane 5X/DAY PRN (Reason: Dry Mouth) Qty: 0 RF: 0 sennosides-docusate sodium [Stool Softener-Stimulant Laxat] 8.6-50 mg tablet 2 tab PO BID RF: 0 Premarin 0.625 mg/gram cream 0.625 dose vaginal 2000 RF: 0 Virt-Caps 1 mg capsule 1 cap PO DAILY RF: 0 heparin (porcine) 5,000 unit/mL solution 5,000 unit subcut Q12 RF: 0 Ensure Compact Liquid 118 ml PO TIDCM RF: 0 Pharmacy Consult 1 ea NOTE X1 PRN (Reason: Check With primary) RF: 0 Referrals / Follow Up: Yash Kwan DO [STAFF PHYSICIAN] - 10/04/21 10:30 am (Bring Insurance card and list of medication. Will have lab work completed prior to talia with Dr. Kwan. @ 10:30 ) Layla Bellamy, PA [Primary Care Provider] - Disposition Disposition (needs filled in before D/C Order can be placed): Home, Self Care
[2021-09-25] MEDS: clonazePAM 0.5 MG Tablet PO (20:28)
[2021-09-25 20:29] VITALS: BP 122/57; PULSE 91
[2021-09-25] MEDS: Rosuvastatin Calcium 5 MG Tablet PO (20:30)
[2021-09-26 08:42] VITALS: BP 120/65; PULSE 90
[2021-09-26] MEDS: Aspirin 81 MG TAB.CHEW PO (08:42)
[2021-09-26] MEDS: Pantoprazole Sodium 40 MG Tablet PO (08:42)
[2021-09-26] MEDS: busPIRone 5 MG Tablet PO ×3 (08:42→20:07)
[2021-09-26] MEDS: Metoprolol(XL)Succ 25 MG Tablet PO ×2 (08:42→20:06)
[2021-09-26] MEDS: buPROPion (XL) 150 MG TABLET.XL PO (08:42)
[2021-09-26] MEDS: Mirabegron 25 MG TAB.ER.24H PO (08:42)
[2021-09-26] MEDS: Cholecalciferol (VIT D3) 25 MCG TABLET (1,000 UNITS) 50 MCG PO (08:42)
[2021-09-26] MEDS: Meloxicam 7.5 MG Tablet PO (08:42)
[2021-09-26] MEDS: Heparin Injection (Vial) 5,000 UNIT/ML VIAL 5000 UNIT SC ×2 (08:51→20:04)
--- NOTE | 2021-09-26 10:19 | NURSING ---
Dr. Bustos notified of pt rash continuing to worsen.
--- NOTE | 2021-09-26 11:00 | PN.ID_ITS ---
Physical Exam Narrative Worsening rash and itching. No fever, otherwise feeling ok. Const alert and no apparent distress General Appearance: cooperative Resp Effort and Inspection: Negative for uses accessory muscles GI non-distended Skin Skin Narrative: worsening pruritic rash on trunk and extremities ID ID: Route of nutrition/ use of supplements: [] Nutritional Intake: [] IV Site: [] Ledezma Catheter: [] Assessment & Plan Assessment/Plan (1) Infection of prosthetic left knee joint: PLAN: L knee MRSA PJI, s/p spacer placement at [place] 08/21/21, plan on iv vanc until 10/02/21. Worsening rash despite benadryl and half speed vanc. Will change to dapto, same stop date. Pt got covid booster during admission here. Will follow, d/w nursing
[2021-09-26] MEDS: DiphenhydrAMINE 25 MG Capsule PO (11:48)
[2021-09-26] MEDS: Ferrous Sulfate 325 MG Tablet PO (11:48)
[2021-09-26] MEDS: Ascorbic Acid 500 MG Tablet 1000 MG PO (11:48)
[2021-09-26] MEDS: 0.9% NaCl Peripheral Flush Adult/Peds IV (12:29)
[2021-09-26 13:48] VITALS: BP 117/54; PULSE 74; RESP 18; TEMP 36.2; O2SAT 97
--- NOTE | 2021-09-26 16:19 | NURSING ---
Resident and spouse, Sherif, notified of staff member testing Positivve for COVID.
[2021-09-26] MEDS: clonazePAM 0.5 MG Tablet PO (20:02)
[2021-09-26 20:06] VITALS: BP 115/58; PULSE 85
[2021-09-26] MEDS: Rosuvastatin Calcium 5 MG Tablet PO (20:06)
[2021-09-26] MEDS: Senna/Docusate Sodium 1 Tablet 2 TABLET PO (20:06)
[2021-09-27] MEDS: busPIRone 5 MG Tablet PO ×3 (08:37→20:10)
[2021-09-27] MEDS: Cholecalciferol (VIT D3) 25 MCG TABLET (1,000 UNITS) 50 MCG PO (08:37)
[2021-09-27] MEDS: Mirabegron 25 MG TAB.ER.24H PO (08:37)
[2021-09-27] MEDS: Heparin Injection (Vial) 5,000 UNIT/ML VIAL 5000 UNIT SC ×2 (08:37→20:10)
[2021-09-27] MEDS: Meloxicam 7.5 MG Tablet PO (08:37)
[2021-09-27] MEDS: Pantoprazole Sodium 40 MG Tablet PO (08:37)
[2021-09-27] MEDS: Aspirin 81 MG TAB.CHEW PO (08:37)
[2021-09-27 08:38] VITALS: BP 127/68; PULSE 91
[2021-09-27] MEDS: Metoprolol(XL)Succ 25 MG Tablet PO ×2 (08:38→20:10)
[2021-09-27] MEDS: buPROPion (XL) 150 MG TABLET.XL PO (08:46)
[2021-09-27] MEDS: Ascorbic Acid 500 MG Tablet 1000 MG PO (11:08)
[2021-09-27] MEDS: Ferrous Sulfate 325 MG Tablet PO (11:08)
[2021-09-27] MEDS: DiphenhydrAMINE 25 MG Capsule PO (11:08)
[2021-09-27] MEDS: 0.9% NaCl Peripheral Flush Adult/Peds IV ×2 (11:10→19:41)
[2021-09-27 13:30] VITALS: BP 136/70; PULSE 85; RESP 16; TEMP 36.4; O2SAT 97
[2021-09-27 19:49] VITALS: PULSE 88; RESP 16; O2SAT 99
[2021-09-27] MEDS: clonazePAM 0.5 MG Tablet PO (20:08)
[2021-09-27 20:10] VITALS: BP 110/60; PULSE 88
[2021-09-27] MEDS: Rosuvastatin Calcium 5 MG Tablet PO (20:11)
[2021-09-27] MEDS: Estrogens,Conj. 1 Tube 0.625 DOSE VAGINAL (20:21)
--- NOTE | 2021-09-27 20:58 | NURSING ---
HS medications administered at 20:10 per pt. request, ready for bed
[2021-09-28] MEDS: Aspirin 81 MG TAB.CHEW PO (08:12)
[2021-09-28] MEDS: Pantoprazole Sodium 40 MG Tablet PO (08:12)
[2021-09-28 08:13] VITALS: BP 119/60; PULSE 75
[2021-09-28] MEDS: busPIRone 5 MG Tablet PO ×3 (08:13→21:16)
[2021-09-28] MEDS: Meloxicam 7.5 MG Tablet PO (08:13)
[2021-09-28] MEDS: Metoprolol(XL)Succ 25 MG Tablet PO ×2 (08:13→21:14)
[2021-09-28] MEDS: Cholecalciferol (VIT D3) 25 MCG TABLET (1,000 UNITS) 50 MCG PO (08:14)
[2021-09-28] MEDS: Mirabegron 25 MG TAB.ER.24H PO (08:14)
[2021-09-28] MEDS: buPROPion (XL) 150 MG TABLET.XL PO (08:14)
[2021-09-28] MEDS: Ferrous Sulfate 325 MG Tablet PO (11:30)
[2021-09-28] MEDS: 0.9% NaCl Peripheral Flush Adult/Peds IV (11:30)
[2021-09-28] MEDS: Ascorbic Acid 500 MG Tablet 1000 MG PO (11:30)
[2021-09-28] MEDS: DiphenhydrAMINE 25 MG Capsule PO (11:30)
--- NOTE | 2021-09-28 13:47 | NURSING ---
Left message for , Sherif, that a patient on the unit has tested positive for covid.
[2021-09-28 15:48] VITALS: BP 134/59; PULSE 88; RESP 16; TEMP 36.4; O2SAT 97
[2021-09-28 21:14] VITALS: BP 121/53; PULSE 84
[2021-09-28] MEDS: clonazePAM 0.5 MG Tablet PO (21:14)
[2021-09-28] MEDS: Rosuvastatin Calcium 5 MG Tablet PO (21:15)
[2021-09-28 22:33] VITALS: PULSE 84; RESP 16; O2SAT 97
[2021-09-29 06:32] LABS: Absolute Lymphocyte Count 1.23 X10^3/uL (0.83-4.51); Absolute Neutrophil Count 4.8 X10^3/uL (2.0-7.7); Basophil# 0.04 X10^3/uL; Basophil% 0.5 % (0-1); Eosinophil# 1.02 X10^3/uL; Eosinophils% 13.1 % (0-5); Hematocrit 32.6 % (37-47); Hemoglobin 10.2 g/dL (12.0-15.0); Lymphocyte # 1.23 X10^3/ul (0.83-4.51); Lymphocyte % 15.8 % (19-41); Mean Corp Hgb Conc 31.3 g/dL (32-36); Mean Corpuscular Hgb 27.1 pg (27.0-32.0); Mean Corpuscular Volume 86.5 fL (81-99); Mean Platelet Vol. 9.6 fl (6.2-12.0); Monocyte% 7.7 % (0-10); NRBC Flagged by Analyzer 0 % (0-5); Neutrophil # 4.83 X10^3/uL (2.7-7.7); Neutrophil % 62.1 % (47-70); Platelet Count 242 K/mm3 (150-450); RBC Distribution Width SD 60.7 fl (35.1-43.9); Red Blood Count 3.77 M/mm3 (4.2-5.4); White Blood Count 7.8 K/mm3 (4.4-11.0)
[2021-09-29 07:03] LABS: AST(SGOT) 16 U/L (15-37); Alanine Aminotransfer ALT/SGPT 35 U/L (13-56); Albumin, Serum 2.8 g/dL (3.2-5.0); Alkaline Phosphatase 84 U/L (45-117); Anion Gap 5 (5-15); BUN 24 mg/dL (7-18); BUN/Creat Ratio 21.8 RATIO (10-20); Bilirubin, Direct 0.09 mg/dL (0.00-0.30); Calcium,Total 9.1 mg/dL (8.5-10.1); Chloride 109 mmol/L (98-107); EST Glomerular Filtration Rate 51 mL/min (>60); Est Glom Filt Rate - Afr Amer 62 mL/min (>60); Estimated Creatinine Clearance 40.09 ml/min; Globulin 3.4 g/dL (2.2-4.2); Glucose 107 mg/dL (74-106); Potassium 4.3 mmol/L (3.5-5.1); Protein, Total 6.2 g/dL (6.4-8.2); Sodium Level 140 mmol/L (136-145)
[2021-09-29 07:26] LABS: CPK Total, Creatine Kinase 15 U/L (26-192)
[2021-09-29 08:11] VITALS: BP 123/55; PULSE 76; RESP 16; TEMP 36.5; O2SAT 97
[2021-09-29 08:15] VITALS: PULSE 76
[2021-09-29] MEDS: Senna/Docusate Sodium 1 Tablet 2 TABLET PO (08:15)
[2021-09-29] MEDS: Meloxicam 7.5 MG Tablet PO (08:15)
[2021-09-29] MEDS: Mirabegron 25 MG TAB.ER.24H PO (08:15)
[2021-09-29] MEDS: Metoprolol(XL)Succ 25 MG Tablet PO ×2 (08:15→20:34)
[2021-09-29] MEDS: busPIRone 5 MG Tablet PO ×3 (08:15→20:35)
[2021-09-29] MEDS: Cholecalciferol (VIT D3) 25 MCG TABLET (1,000 UNITS) 50 MCG PO (08:15)
[2021-09-29] MEDS: buPROPion (XL) 150 MG TABLET.XL PO (08:15)
[2021-09-29] MEDS: Aspirin 81 MG TAB.CHEW PO (08:16)
[2021-09-29] MEDS: Pantoprazole Sodium 40 MG Tablet PO (08:16)
[2021-09-29] MEDS: DiphenhydrAMINE 25 MG Capsule PO (10:28)
[2021-09-29] MEDS: Ascorbic Acid 500 MG Tablet 1000 MG PO (11:07)
[2021-09-29] MEDS: 0.9% Saline Lock 10 ML Syringe IV (11:07)
[2021-09-29] MEDS: Ferrous Sulfate 325 MG Tablet PO (11:07)
[2021-09-29 15:18] VITALS: BP 116/51; PULSE 86; RESP 16; TEMP 36.4; O2SAT 97
[2021-09-29] MEDS: Rosuvastatin Calcium 5 MG Tablet PO (20:33)
[2021-09-29 20:34] VITALS: BP 110/61; PULSE 83
[2021-09-29] MEDS: clonazePAM 0.5 MG Tablet PO (20:34)
[2021-09-29 22:56] VITALS: PULSE 81; RESP 16; O2SAT 97
[2021-09-30] MEDS: Aspirin 81 MG TAB.CHEW PO (09:18)
[2021-09-30] MEDS: busPIRone 5 MG Tablet PO ×3 (09:19→20:17)
[2021-09-30] MEDS: Meloxicam 7.5 MG Tablet PO (09:20)
[2021-09-30] MEDS: Pantoprazole Sodium 40 MG Tablet PO (09:21)
[2021-09-30] MEDS: Senna/Docusate Sodium 1 Tablet 2 TABLET PO (09:21)
[2021-09-30] MEDS: Cholecalciferol (VIT D3) 25 MCG TABLET (1,000 UNITS) 50 MCG PO (09:23)
[2021-09-30] MEDS: buPROPion (XL) 150 MG TABLET.XL PO (09:23)
[2021-09-30] MEDS: Mirabegron 25 MG TAB.ER.24H PO (09:24)
[2021-09-30 09:25] VITALS: BP 138/57; PULSE 83
[2021-09-30] MEDS: Metoprolol(XL)Succ 25 MG Tablet PO ×2 (09:25→20:18)
[2021-09-30] MEDS: DiphenhydrAMINE 25 MG Capsule PO (11:24)
[2021-09-30] MEDS: Ascorbic Acid 500 MG Tablet 1000 MG PO (11:24)
[2021-09-30] MEDS: Ferrous Sulfate 325 MG Tablet PO (11:25)
[2021-09-30] MEDS: 0.9% NaCl Peripheral Flush Adult/Peds IV (13:18)
[2021-09-30 16:00] VITALS: BP 135/49; PULSE 84; RESP 16; TEMP 36.6; O2SAT 94
[2021-09-30] MEDS: clonazePAM 0.5 MG Tablet PO (20:17)
[2021-09-30 20:18] VITALS: BP 118/58; PULSE 84
[2021-09-30] MEDS: Rosuvastatin Calcium 5 MG Tablet PO (20:18)
[2021-10-01] MEDS: busPIRone 5 MG Tablet PO ×3 (07:58→19:59)
[2021-10-01] MEDS: Aspirin 81 MG TAB.CHEW PO (07:59)
[2021-10-01] MEDS: Pantoprazole Sodium 40 MG Tablet PO (08:00)
[2021-10-01] MEDS: Meloxicam 7.5 MG Tablet PO (08:00)
[2021-10-01] MEDS: Mirabegron 25 MG TAB.ER.24H PO (08:00)
[2021-10-01] MEDS: Senna/Docusate Sodium 1 Tablet 2 TABLET PO (08:00)
[2021-10-01] MEDS: buPROPion (XL) 150 MG TABLET.XL PO (08:01)
[2021-10-01] MEDS: Cholecalciferol (VIT D3) 25 MCG TABLET (1,000 UNITS) 50 MCG PO (08:02)
[2021-10-01 08:07] VITALS: BP 139/67; PULSE 84
[2021-10-01] MEDS: Metoprolol(XL)Succ 25 MG Tablet PO ×2 (08:07→20:00)
[2021-10-01] MEDS: Ferrous Sulfate 325 MG Tablet PO (11:11)
[2021-10-01] MEDS: DiphenhydrAMINE 25 MG Capsule PO (11:11)
[2021-10-01] MEDS: Ascorbic Acid 500 MG Tablet 1000 MG PO (11:12)
[2021-10-01] MEDS: 0.9% NaCl Peripheral Flush Adult/Peds IV (12:39)
[2021-10-01 15:16] VITALS: BP 119/51; PULSE 81; RESP 17; TEMP 36.8; O2SAT 98
[2021-10-01] MEDS: clonazePAM 0.5 MG Tablet PO (19:59)
[2021-10-01 20:00] VITALS: BP 129/68; PULSE 83; PULSE 88; RESP 14; O2SAT 97
[2021-10-01] MEDS: Rosuvastatin Calcium 5 MG Tablet PO (20:00)
[2021-10-02] MEDS: Aspirin 81 MG TAB.CHEW PO (08:19)
[2021-10-02] MEDS: busPIRone 5 MG Tablet PO ×3 (08:19→20:07)
[2021-10-02 08:21] VITALS: PULSE 60
[2021-10-02] MEDS: Meloxicam 7.5 MG Tablet PO (08:21)
[2021-10-02] MEDS: Metoprolol(XL)Succ 25 MG Tablet PO (08:21)
[2021-10-02] MEDS: Pantoprazole Sodium 40 MG Tablet PO (08:21)
[2021-10-02] MEDS: Cholecalciferol (VIT D3) 25 MCG TABLET (1,000 UNITS) 50 MCG PO (08:22)
[2021-10-02] MEDS: Mirabegron 25 MG TAB.ER.24H PO (08:23)
[2021-10-02] MEDS: buPROPion (XL) 150 MG TABLET.XL PO (08:23)
[2021-10-02] MEDS: DiphenhydrAMINE 25 MG Capsule PO (12:08)
[2021-10-02] MEDS: Ferrous Sulfate 325 MG Tablet PO (12:09)
[2021-10-02] MEDS: Ascorbic Acid 500 MG Tablet 1000 MG PO (12:09)
[2021-10-02] MEDS: 0.9% NaCl Peripheral Flush Adult/Peds IV ×2 (12:12→14:33)
[2021-10-02 14:23] VITALS: BP 137/63; PULSE 85; RESP 16; TEMP 36.7; O2SAT 96
[2021-10-02 20:06] VITALS: BP 112/48; PULSE 96
[2021-10-02] MEDS: clonazePAM 0.5 MG Tablet PO (20:06)
[2021-10-02] MEDS: Rosuvastatin Calcium 5 MG Tablet PO (20:06)
[2021-10-03 08:51] VITALS: BP 138/58; PULSE 87
[2021-10-03] MEDS: Metoprolol(XL)Succ 25 MG Tablet PO (08:51)
[2021-10-03] MEDS: Mirabegron 25 MG TAB.ER.24H PO (08:51)
[2021-10-03] MEDS: Cholecalciferol (VIT D3) 25 MCG TABLET (1,000 UNITS) 50 MCG PO (08:51)
[2021-10-03] MEDS: Aspirin 81 MG TAB.CHEW PO (08:51)
[2021-10-03] MEDS: busPIRone 5 MG Tablet PO (08:51)
[2021-10-03] MEDS: Meloxicam 7.5 MG Tablet PO (08:51)
[2021-10-03] MEDS: Pantoprazole Sodium 40 MG Tablet PO (08:51)
[2021-10-03] MEDS: buPROPion (XL) 150 MG TABLET.XL PO (08:52)
[2021-10-03 09:48] VITALS: RESP 16
[2021-10-03 09:57] VITALS: RESP 16; TEMP 36.6; O2SAT 97
== END 2021-10-03 10:00 | disposition home or self-care (01) | DRG 950 ==
PROVIDERS: Internal Medicine Infectious Disease; Admitting Provider Family Medicine Geriatric Medicine; PCP Physician Assistant; Visit Provider Family Medicine Geriatric Medicine
DX: T84.54XD Infection and inflammatory reaction due to internal left knee prosthesis, subsequent encounter (principal); D50.9 Iron deficiency anemia, unspecified; I10 Essential (primary) hypertension; K21.9 Gastro-esophageal reflux disease without esophagitis; E78.5 Hyperlipidemia, unspecified; I25.10 Atherosclerotic heart disease of native coronary artery without angina pectoris; G47.33 Obstructive sleep apnea (adult) (pediatric); F41.9 Anxiety disorder, unspecified; E55.9 Vitamin D deficiency, unspecified; F32.A Depression, unspecified; N32.81 Overactive bladder; Z79.01 Long term (current) use of anticoagulants; Y79.2 Prosthetic and other implants, materials and accessory orthopedic devices associated with adverse incidents; Z79.899 Other long term (current) drug therapy; Z79.82 Long term (current) use of aspirin; R21 Rash and other nonspecific skin eruption
CPT/HCPCS: 36415; 80048; 80076; 80202; 82550; 82565; 85025; 85652; 86140; 87426; 97110; 97116; 97140; 97162; 97165; 97530; 97535; 97802; J0878; J7050; A4216; J3490

== ENCOUNTER 2023-02-12 14:21 | Emergency (ER) | payer MEDICARE, BC, SELFPAY ==
[2023-02-12 14:24] VITALS: BP 174/56; PULSE 64; RESP 14; TEMP 36.2; O2SAT 97; BMI 26.6
[2023-02-12 14:34] VITALS: BP 170/50; PULSE 57; RESP 18; O2SAT 100
--- NOTE | 2023-02-12 15:21 | CT_ITS ---
STUDY: CT BRAIN WITHOUT CONTRAST REASON FOR EXAM: Female, 77 years old. dizzy Individualized dose optimization techniques were used for this CT. TECHNIQUE: Transaxial CT imaging of the brain was performed without administration of intravenous contrast material. COMPARISON: 08/06/2016 FINDINGS: There are calcifications around the carotid artery. These are noted in the cavernous carotid arteries. Normal calvarium. Normal soft tissues. There is mild cerebral atrophy with widening of the extra-axial spaces and ventricular dilatation. There are areas of decreased attenuation within the white matter tracts of the supratentorial brain, consistent with microvascular disease changes. Normal basal ganglia and thalami. Normal brainstem. There is mild cerebellar atrophy. There is no intracranial hemorrhage. There are no findings of an acute ischemic infarction. Normal visualized paranasal sinuses. ASPECTS Score for Acute Strokes: 06/04 CT/Brain/Head without Contrast IMPRESSION: There are no acute findings. Chronic involutional changes of the brain. Electronically Signed: Fidel Anguiano MD at 16:28 EDT ,
--- NOTE | 2023-02-12 15:26 | EX.ED.DYSGE1 ---
HPI History of Present Illness Chief Complaint: Dizziness Informant: patient Narrative Narrative: Presents with spinning. Patient states she was visiting her in a nursing facility. She suddenly got the sense that she was spinning around. She laid over a piece of furniture. She states her arms were shaking. But she remained fully alert. She did not have a syncopal episode. This sounds like severe vertigo. She got nauseated but did not vomiting. She had fullness in her epigastric area but no pain. She states she had to take a deep breath but does not feel like she was short of breath. She felt no palpitations or chest pain. She has had an episode of positional vertigo years ago in the past but it was very mild compared to this. She feels better now but still does not feel normal. She also states that her whole body just felt heavy. There was no lateralizing symptom. No speech or vision difficulties. I reviewed her medication list here. She was not familiar with her med list but states she would recognize the meds if I stated them. She does know she has high blood pressure. It looks like she also has history of high cholesterol and GERD. No history of stroke. [facility] Medical History Anxiety and depression Asthma CAD (coronary artery disease) Diverticulosis GERD (gastroesophageal reflux disease) Grade I diastolic dysfunction History of gastrointestinal bleeding HTN (hypertension) Hyperlipidemia IBS (irritable bowel syndrome) Iron deficiency anemia Nonrheumatic mitral valve regurgitation RAVIN (obstructive sleep apnea) Osteoarthritis Peripheral neuropathy Prosthetic joint infection Pulmonary HTN Pulmonary nodules Seasonal allergies Urge urinary incontinence Home Medications acetaminophen 500 mg tablet 1,000 mg PO Q8H PRN PRN Pain Score 1-10 #0 tabs 09/06/21 [Rx Last Taken Unknown] albuterol sulfate 90 mcg/actuation aerosol inhaler (Ventolin HFA) 2 puff inhalation Q6H PRN PRN Sob &/Or Wheezing #0 grams 09/06/21 [Rx Last Taken Unknown] fluticasone propionate 50 mcg/actuation nasal spray,suspension 1 spray NASAL DAILY PRN CONGESTION #0 grams 09/06/21 [Rx Last Taken Unknown] ascorbic acid (vitamin C) 500 mg tablet 1,000 mg PO LUNCH Supplement 09/07/21 [History Last Taken Unknown] aspirin 81 mg chewable tablet 81 mg PO BREAKFAST Heart 09/07/21 [History Last Taken Unknown] cholecalciferol (vitamin D3) 25 mcg (1,000 unit) tablet 50 mcg PO DAILY Supplement 09/07/21 [History Last Taken Unknown] meloxicam 7.5 mg tablet 7.5 mg PO BID pain 09/07/21 [History Last Taken Unknown] rosuvastatin 5 mg tablet (Crestor) 5 mg PO QHS Cholesterol 09/07/21 [History Last Taken Unknown] pantoprazole 40 mg tablet,delayed release 40 mg PO DAILY GERD 30 days #30 tabs 09/25/21 [Rx Last Taken Unknown] bupropion HCl 150 mg 24 hr tablet, extended release 150 mg PO DAILY Mood 30 days #30 tabs 10/03/21 [Rx Last Taken Unknown] metoprolol succinate 25 mg tablet,extended release 24 hr 25 mg PO BID BP 30 days #60 tabs 10/03/21 [Rx Last Taken Unknown] folic acid 1 mg tablet 02/12/23 [History Last Taken Unknown] meclizine 25 mg tablet 25 mg PO TID PRN dizziness #15 tabs 02/12/23 [Rx Last Taken Unknown] Allergy/AdvReac Type Severity Reaction Status Date / Time vancomycin Allergy Intermediate Other Verified 10/02/21 12:30 Penicillins [PCN] Allergy red/rash Verified 04/21/21 10:00 at injection site promethazine HCl Allergy Unknown Verified 04/21/21 10:00 [From Phenergan] [id number] Reductase Allergy Other Verified 04/21/21 10:00 Inhibitor [Cgtcxnd-Yrm-Rwp Reductase Inhibitor] Sulfa (Sulfonamide Allergy Swelling Verified 04/21/21 10:00 Antibiotics) Family History Grandfather Cancer paternal GF Grandfather Cancer maternal GF Father CAD (coronary artery disease) Diabetes Grandmother No problems noted. 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 Some specific details below. Constitutional: No recent fevers or chills. No rigors. Patient has not generally felt ill. She got up this morning and felt normal. EYE: No discharge, visual complaints, or pain. No visual field cut ENT: No difficulty swallowing. No swelling. No sinus pressure or pain. No nasal discharge. No change in hearing. No ear pain. CV: No chest pain, pressure or aching. No palpitations or irregular beats. Patient has not been presyncopal or syncopal. Respiratory: No trouble breathing. No cough. No wheezing. No sputum production. No pain with breathing. She does state that she felt like she needed to take a deep breath but denies actual dyspnea. GI: No abdominal pain but she did feel like she may be had a knot in her upper abdomen. She had nausea but did not actually vomit. She still has some nausea but it is slightly better after Zofran by EMS. : No frequency dysuria or hematuria. Musculoskeletal: No recent trauma. No pains. No swelling. Skin: No rash. Nondiaphoretic. Neuro: No focal weakness or numbness. No difficulty with speaking. No difficulty understanding speech. No visual loss. Please see history of present illness also. Symptoms are improved but still present. Endocrine: No polyuria or polydipsia. EXAM Physical Exam Narrative Exam Narrative: CONSTITUTIONAL: Patient is nontoxic in appearance. The patient looks comfortable. Work of breathing looks normal. HEENT: No notable trauma. Mucous membranes moist. No sinus tenderness. Mild cerumen but no sign of obstruction. EYES: No conjunctival injection. No proptosis. Patient's pupils are about 2-1/2 mm and reactive. No pain with range of motion. No pallor. NECK: No meningismus. No JVD. I hear no bruit. CARDIOVASCULAR: Regular rate. Regular rhythm. No notable murmur. No JVD. Heart rate is a little bit slower at around 60. RESPIRATORY: No respiratory distress. Breathing is unlabored. No wheezes. No rhonchi. No rales. No pain with a deep breath. GASTROINTESTINAL: Not distended. Bowel sounds are normal. No tenderness. No guarding. No rebound. No palpable mass. No bruit. GENITOURINARY: No tenderness over the bladder. No CVA tenderness. MUSCULOSKELETAL: Atraumatic. No peripheral edema. No cord. No tenderness along the deep venous system. No asymmetry. NEUROLOGICAL: Patient is alert and oriented. No focal deficit noted. NIH stroke scale is 0. She has a little trouble lifting her left leg but she states this is due to joints and is normal for her. But I get no asymmetry numbness. She seemed to have a little bit more symptoms looking to the right than the left but it was minimal difference. If she leans forward or leans back she does get more dizziness but it is hard to see nystagmus. SKIN: No noted rashes. No diaphoresis. No vesicles noted. No notable pallor. PSYCHIATRIC: Patient is calm. Mood is appropriate. Const Vital Signs: 02/12/23 14:24 02/12/23 14:34 02/12/23 14:34 Temperature 97.2 F L Temperature Source Temporal Pulse Rate 64 57 L Respiratory Rate 14 18 Respiratory Effort Normal Respiratory Pattern Normal Blood Pressure 174/56 H 170/50 H Blood Pressure Mean 95 90 Pulse Ox 97 100 Oxygen Delivery Method Room Air Room Air 02/12/23 16:26 02/12/23 17:15 Temperature Temperature Source Pulse Rate 63 Respiratory Rate 22 H 18 Respiratory Effort Respiratory Pattern Blood Pressure 161/68 H Blood Pressure Mean 99 Pulse Ox Oxygen Delivery Method MDM MDM MDM Narrative Medical decision making narrative: This note was generated with [employer] dictation software. It may contain incorrect words, spelling, and punctuation that were not noted in review of the chart prior to signing. Also, today, our computer system has significant slowing. Each click of the mouse requires 10 seconds to 2 minutes of time. This significantly delays entering orders, evaluating patients, flow of the department, and the ability or inability to review prior information. My independent interpretation the patient's single view AP chest x-ray shows no acute process. Final reading shows no acute findings in the chest. My independent interpretation the patient's CT scan of the head without contrast shows no mass or bleed. Final reading is no acute findings but there are chronic involutional changes. Patient was given some fluids, Zofran for the nausea, meclizine. Patient's symptoms have resolved here. She went to the restroom without problems. We got her up and walked in the department. She walked a stable nonwide-based gait. She had no vertigo. She states she had a true significant spinning sensation when this happened. Her work-up is overall negative. She is comfortable with going home. We discussed trying some meclizine if she has further symptoms. We discussed that this can be stroke but normally that does not have as much of a spinning sensation and the nausea. She has never had discoordination at any time. We discussed follow-up and reasons to return. Lab Data Attestation: I reviewed the patient's lab results. Labs: Laboratory Results - last 24 hr 02/12/23 02/12/23 15:44 15:44 WBC 8.4 RBC 4.16 L Hgb 11.4 L Hct 35.5 L MCV 85.3 MCH 27.4 MCHC 32.1 RDW Std Deviation 44.4 H RDW Coeff of Kaden 14.3 Plt Count 273 MPV 9.6 Immature Gran % (Auto) 0.400 Neut % (Auto) 78.8 H Lymph % (Auto) 14.2 L [place] % (Auto) 5.6 Eos % (Auto) 0.8 Baso % (Auto) 0.2 Absolute Neuts (auto) 6.6 Absolute Lymphs (auto) 1.19 Nucleated RBC % 0 Sodium 140 Potassium 4.1 Chloride 109 H Carbon Dioxide 26.0 Anion Gap 5 BUN 20 H Creatinine 1.10 H Estim Creat Clear Calc 39.46 Est GFR (MDRD) Af Amer 62 Est GFR (MDRD) Non-Af 51 L BUN/Creatinine Ratio 18.2 Glucose 107 H Calcium 9.7 Troponin I High Sens 6 Radiography Diagnostic Testing: Clinical Impression(s) from Imaging Studies Brain CT 02/12/23 15:21 IMPRESSION: There are no acute findings. Chronic involutional changes of the brain. Electronically Signed: Fidel Anguiano MD at 16:28 EDT , Chest X-Ray 06/20/23 15:50 IMPRESSION: No acute findings in the chest. Electronically Signed: Fidel Anguiano MD at 16:13 EDT , EKG Initial EKG: Comments: My independent interpretation of the EKG shows sinus rhythm with multiple PACs. No ventricular ectopy. No acute ST elevation or depression. MT interval, QRS duration and QTc normal. Discharge Plan Triage Chief Complaint: Dizziness ED Provider: Vinay Cornelius Dx/Rx/DC Orders Clinical Impression: Vertigo Instructions: ED Vertigo, Unspecified Prescriptions: New meclizine 25 mg tablet 25 mg PO TID PRN (Reason: dizziness) Qty: 15 0RF No Action acetaminophen 500 mg Tablet 1,000 mg PO Q8H PRN PRN (Reason: Pain Score 1-10) Qty: 0 0RF fluticasone propionate 50 mcg/actuation [place],Suspension 1 spray NASAL DAILY PRN (Reason: CONGESTION) Qty: 0 0RF albuterol sulfate [Ventolin HFA] 90 mcg/actuation Hfa Aerosol Inhaler 2 puff inhalation Q6H PRN PRN (Reason: Sob &/Or Wheezing) Qty: 0 0RF meloxicam 7.5 mg tablet 7.5 mg PO BID ascorbic acid (vitamin C) 500 mg tablet 1,000 mg PO LUNCH aspirin 81 mg tablet,chewable 81 mg PO BREAKFAST rosuvastatin [Crestor] 5 mg tablet 5 mg PO QHS cholecalciferol (vitamin D3) 25 mcg (1,000 unit) tablet 50 mcg PO DAILY pantoprazole 40 mg tablet,delayed release (DR/EC) 40 mg PO DAILY 30 Days Qty: 30 0RF metoprolol succinate 25 mg tablet extended release 24 hr 25 mg PO BID 30 Days Qty: 60 0RF bupropion HCl 150 mg tablet extended release 24 hr 150 mg PO DAILY 30 Days Qty: 30 0RF folic acid 1 mg tablet Label Comments: TAKE 1 TABLET BY MOUTH EVERY DAY Primary Care Provider: Layla Bellamy Referrals: Layla Bellamy PA [Primary Care Provider] - 3-5 Days Disposition Disposition: Home, Self Care
[2023-02-12] MEDS: Ondansetron 4 MG/2 ML Vial IV (15:43)
--- NOTE | 2023-02-12 15:50 | RAD_ITS ---
EXAM: XR CHEST, 1 VIEW CLINICAL INDICATION: SOB TECHNIQUE: Frontal view of the chest. COMPARISON: 3.29.15 FINDINGS: LUNGS AND PLEURAL SPACES: Unremarkable. No consolidation or edema. No pneumothorax. No effusion. HEART: Enlarged heart. MEDIASTINUM: Central airways and mediastinal contour are unremarkable. BONES/JOINTS: Unremarkable. SOFT TISSUES: Unremarkable. RAD/Chest 1 View (Portable) IMPRESSION: No acute findings in the chest. Electronically Signed: Fidel Anguiano MD at 16:13 EDT ,
[2023-02-12 15:51] LABS: Absolute Lymphocyte Count 1.19 X10^3/uL (0.83-4.51); Absolute Neutrophil Count 6.6 X10^3/uL (2.0-7.7); Basophil# 0.02 X10^3/uL; Basophil% 0.2 % (0-1); Eosinophil# 0.07 X10^3/uL; Eosinophils% 0.8 % (0-5); Hematocrit 35.5 % (37-47); Hemoglobin 11.4 g/dL (12.0-15.0); Lymphocyte # 1.19 X10^3/ul (0.83-4.51); Lymphocyte % 14.2 % (19-41); Mean Corp Hgb Conc 32.1 g/dL (32-36); Mean Corpuscular Hgb 27.4 pg (27.0-32.0); Mean Corpuscular Volume 85.3 fL (81-99); Mean Platelet Vol. 9.6 fl (6.2-12.0); Monocyte# 0.47 X10^3/uL; Monocyte% 5.6 % (0-10); NRBC Flagged by Analyzer 0 % (0-5); Neutrophil # 6.62 X10^3/uL (2.7-7.7); Neutrophil % 78.8 % (47-70); Platelet Count 273 K/mm3 (150-450); RBC Distribution Width CV 14.3 % (11.6-14.6); RBC Distribution Width SD 44.4 fl (35.1-43.9); Red Blood Count 4.16 M/mm3 (4.2-5.4); White Blood Count 8.4 K/mm3 (4.4-11.0)
[2023-02-12 16:08] LABS: Anion Gap 5 (5-15); BUN 20 mg/dL (7-18); BUN/Creat Ratio 18.2 RATIO (10-20); Calcium,Total 9.7 mg/dL (8.5-10.1); Chloride 109 mmol/L (98-107); EST Glomerular Filtration Rate 51 mL/min (>60); Est Glom Filt Rate - Afr Amer 62 mL/min (>60); Estimated Creatinine Clearance 39.46 ml/min; Glucose 107 mg/dL (74-106); Potassium 4.1 mmol/L (3.5-5.1); Sodium Level 140 mmol/L (136-145); Troponin-I HS 6 pg/mL (3.0-54.0)
[2023-02-12] MEDS: Meclizine HCl 25 MG Tablet PO (16:25)
[2023-02-12 16:26] VITALS: BP 161/68; PULSE 63; RESP 22
[2023-02-12 17:15] VITALS: RESP 18
[2023-02-12 17:34] VITALS: RESP 20
== END 2023-02-12 17:35 | disposition home or self-care (01) ==
PROVIDERS: Emergency Provider Emergency Medicine; PCP Physician Assistant; Visit Provider Emergency Medicine
DX: R42 Dizziness and giddiness (principal); I25.10 Atherosclerotic heart disease of native coronary artery without angina pectoris; E78.5 Hyperlipidemia, unspecified; I10 Essential (primary) hypertension; K21.9 Gastro-esophageal reflux disease without esophagitis; J45.909 Unspecified asthma, uncomplicated; Z79.899 Other long term (current) drug therapy; Z79.82 Long term (current) use of aspirin; F41.8 Other specified anxiety disorders; Z96.652 Presence of left artificial knee joint; Z90.49 Acquired absence of other specified parts of digestive tract
CPT/HCPCS: 70450; 71045; 80048; 84484; 85025; 93005; 96361; 96374; 99285; J7030; J2405

== ENCOUNTER 2024-08-19 16:13 | Emergency (ER) | payer MEDICARE, BC, SELFPAY ==
[2024-08-19 16:14] VITALS: BP 155/61; PULSE 78; RESP 18; TEMP 36.2; O2SAT 100; BMI 26.5
--- NOTE | 2024-08-19 16:29 | RAD_ITS ---
INDICATION: fall EXAMINATION/TECHNIQUE: X-RAY - LEFT XR Knee Complete 4 Views or More 4 VIEWS COMPARISON: FINDINGS: Prior knee replacement. Tibial prosthesis removed with screw in place. No acute fracture or dislocation. No destructive bone changes. Joint spaces are otherwise maintained. Normal alignment. Soft tissues are unremarkable. No radiopaque foreign body or soft tissue gas. RAD/Knee 4 or More Views IMPRESSION: No acute findings. Electronically Signed: Lorena Ireland MD at 17:09 EST Reading Location ID and State: [id number] / Tel , Service support ,
--- NOTE | 2024-08-19 16:29 | CT_ITS ---
STUDY: CT BRAIN WITHOUT CONTRAST REASON FOR EXAM: Female, 79 years old. trauma RADIATION DOSAGE (If Supplied By Facility): CTDIvol = ( 44.99 ) mGy, DLP = ( 779.24 ) mGycm TECHNIQUE: Transaxial CT imaging of the brain was performed without administration of intravenous contrast material. Individualized dose optimization techniques were used for this CT. COMPARISON: 02/12/2023. FINDINGS: Normal soft tissue structures. Normal calvarium. Mild ventricular enlargement commensurate with the degree of sulcal atrophy. Mild low-attenuation changes in the periventricular white matter consistent with microvascular ischemia. Mild involutional changes consistent with the patient''s age. There is no intracranial hemorrhage. There are no findings of an acute ischemic infarction. Normal visualized paranasal sinuses. CT/Brain/Head without Contrast IMPRESSION: No acute findings. Mild microvascular ischemic changes. Electronically Signed: Lorena Ireland MD at 17:18 EST Reading Location ID and State: [id number] / Tel , Service support ,
--- NOTE | 2024-08-19 16:29 | CT_ITS ---
EXAM: CT MAXILLOFACIAL WITHOUT INTRAVENOUS CONTRAST CLINICAL INDICATION: left facial trauma and nose TECHNIQUE: Helically acquired images were obtained of the face without intravenous contrast. This CT exam was performed using one or more of the following dose reduction techniques: automated exposure control, adjustment of the mA and/or kV according to patient size, and/or use of iterative reconstruction technique. COMPARISON: No relevant prior studies available. FINDINGS: BONES/JOINTS: Nasal fracture best demonstrated on the sagittal sequence. Degenerative changes of the temporomandibular joints. Rightward nasal septal deviation with mild spurring. Mild narrowing of the ostiomeatal complexes due to mucosal thickening. No discrete lytic or blastic abnormalities. SOFT TISSUES: Unremarkable. No focal subcutaneous swelling. No discrete fluid collections. ORBITS: Visualized globes, extraocular muscles, and retrobulbar fat are unremarkable. SINUSES: Small left junior bullosa. Mild mucosal thickening right maxillary sinus. MASTOID AIR CELLS: Unremarkable as visualized. Clear. DENTAL: No acute findings. No periodontal osseous erosion. CT/Sinus/Facial Bone IMPRESSION: Nasal fracture. Nasal septal deviation. Trace chronic sinusitis. Electronically Signed: Lorena Ireland MD at 17:24 EST Reading Location ID and State: [id number] / Tel , Service support ,
--- NOTE | 2024-08-19 16:30 | ED.VIS.FALL ---
HPI HPI - Fall History of Present Illness Chief Complaint: Fall Informant: patient Occured/Mechanism Occurred: Today Mechanism/Context: Yes same level fall and Yes trip Usually ambulates: Without assistance Pain/Injury Pain Location: face and lower extremity Quality of Pain: Dull and Aching Current Severity: Mild Maximum Severity: Mild Associated Symptoms Associated Symptoms: Negative for Parasthesias, Weakness, Loss of function, Inability to ambulate, Loss of consciousness or Amnesia Narrative Narrative: 79-year-old female with a history of hypertension and valvular heart disease. Tripped and fell at home landed on a wood floor complaining of bilateral knee pain and her nose and face hurts from where she hit them. No LOC. No blood thinner. No neck or back pain. No chest or abdominal pain. She was not knocked out. She denies recent illness. Said she simply tripped and lost her balance. Prior similar symptoms: No Recent Illness/Hospitalization: No PFSH PFSH Medical History Grade I diastolic dysfunction Peripheral neuropathy Iron deficiency anemia Pulmonary HTN Nonrheumatic mitral valve regurgitation IBS (irritable bowel syndrome) GERD (gastroesophageal reflux disease) CAD (coronary artery disease) Seasonal allergies Pulmonary nodules Urge urinary incontinence RAVIN (obstructive sleep apnea) Prosthetic joint infection Osteoarthritis History of gastrointestinal bleeding Diverticulosis Anxiety and depression Asthma Hyperlipidemia HTN (hypertension) Home Medications ?Medication ?Instructions ?Recorded ?Last Taken ?Type acetaminophen 500 mg tablet 1,000 mg (2 x 500 mg) PO Q8H PRN 09/06/21 Unknown Rx PRN Pain Score 1-10 #0 tabs albuterol sulfate 90 mcg/actuation 2 puff inhalation Q6H PRN PRN Sob 09/06/21 Unknown Rx aerosol inhaler (Ventolin HFA) &/Or Wheezing #0 grams fluticasone propionate 50 1 spray NASAL DAILY PRN CONGESTION 09/06/21 Unknown Rx mcg/actuation nasal #0 grams spray,suspension ascorbic acid (vitamin C) 500 mg 1,000 mg PO LUNCH Supplement 09/07/21 Unknown History tablet aspirin 81 mg chewable tablet 81 mg PO BREAKFAST Heart 09/07/21 Unknown History cholecalciferol (vitamin D3) 25 50 mcg PO DAILY Supplement 09/07/21 Unknown History mcg (1,000 unit) tablet meloxicam 7.5 mg tablet 7.5 mg PO BID pain 09/07/21 Unknown History rosuvastatin 5 mg tablet (Crestor) 5 mg PO QHS Cholesterol 09/07/21 Unknown History pantoprazole 40 mg tablet,delayed 40 mg PO DAILY GERD 30 days #30 09/25/21 Unknown Rx release tabs bupropion HCl 150 mg 24 hr tablet, 150 mg PO DAILY Mood 30 days #30 10/03/21 Unknown Rx extended release tabs metoprolol succinate 25 mg 25 mg PO BID BP 30 days #60 tabs 10/03/21 Unknown Rx tablet,extended release 24 hr folic acid 1 mg tablet 02/12/23 Unknown History meclizine 25 mg tablet 25 mg PO TID PRN dizziness #15 tabs 02/12/23 Unknown Rx Allergy/AdvReac Type Severity Reaction Status Date / Time vancomycin Allergy Intermediate Other Verified 08/19/24 16:14 Penicillins (PCN) Allergy red/rash Verified 08/19/24 16:14 at injection site promethazine HCl (From Allergy Unknown Verified 08/19/24 16:14 Phenergan) [id number] Reductase Allergy Other Verified 08/19/24 16:14 Inhibitor (Ljccyhx-[id number]-[id number] Reductase Inhibitor) Sulfa (Sulfonamide Allergy Swelling Verified 08/19/24 16:14 Antibiotics) Family History Grandfather Cancer paternal GF Grandfather Cancer maternal GF Father CAD (coronary artery disease) Diabetes Grandmother No problems noted. 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 Constitutional Constitutional ED: Denies chills Eyes Eyes: Denies blurry vision ENT ENT ED: Denies ear pain Cardiovascular Cardiovascular: Denies chest pain Respiratory/Chest Respiratory/Chest: Denies cough or dyspnea Gastrointestinal Gastrointestinal: Denies abdominal pain Genitourinary Genitourinary ED: Denies dysuria or hematuria Musculoskeletal Musculoskeletal: Denies arthralgias Integumentary Denies abscess or Abrasions Neurologic Neurologic: Reports headache(s) Psychiatric Psychiatric: Denies anxiety or depression Endocrine Endocrinology: Denies polydipsia Hematologic/Lymphatic Hematologic/Lymphatic: Denies easy bleeding Allergic/Immunologic Allergic/Immunologic ED: Denies mouth swelling, tongue swelling or urticaria EXAM Physical Exam Narrative Exam Narrative: 79-year-old female sitting upright in bed. No acute distress. Vital signs stable afebrile. Her sister at bedside. H EENT exam pupils are reactive light. She has a abrasion with dried blood on her nose. Its mildly tender on the bridge. There is no blood or bleeding from the naris. Mild tenderness to her left cheek but no significant swelling. Dentition intact. No malocclusion. Able to open close her mouth. Scalp and head otherwise nontender without hematomas or lacerations. Neck nontender normal range of motion trachea midline. Lungs clear to auscultation bilaterally. Heart regular rate and rhythm rate about 80 no murmur. Chest wall ribs nontender. Abdomen soft nontender. Back nontender. No spine tenderness. No bruising. Pelvic girdle intact. She has tenderness of both knees left more than right. Left mildly swollen. Prior knee replacement surgery. Dorsi plantarflexion intact. No shortening or rotation. Upper extremities are nontender. Normal range of motion. No deformity. No swelling. 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 Neurologically she is awake and alert. Answering questions following commands. GCS 15. Const Vital Signs: 08/19/24 16:14 08/19/24 16:26 08/19/24 18:13 Temperature 97.2 F L Temperature Source Temporal Pulse Rate 78 72 Respiratory Rate 18 19 H Respiratory Effort Normal Respiratory Depth Normal Respiratory Pattern Normal Blood Pressure 155/61 H Blood Pressure Mean 92 Pulse Ox 100 96 Oxygen Delivery Method Room Air Room Air Room Air Positive well nourished and well developed; Negative for cachectic, contractures or unkempt General Appearance ED: well developed and NAD; Negative for unkempt, cachectic or contractures Nutritional Appearance: Negative for cachectic HEENT Reports normocephalic trauma, contusion and tenderness; Negative for atraumatic Eyes PERRL and EOMs intact bilaterally Neck full ROM, no lymphadenopathy and supple General: Negative for tenderness Chest Wall inspection of chest normal and palpation of chest normal Resp normal respiratory effort, no retractions and clear to auscultation bilaterally Auscultation: Negative for rales, rhonchi, wheezes or diminished lung sounds Cardio regular rate, regular rhythm, S1 normal heart sound, S2 normal heart sound and no murmurs Rate: Negative for bradycardia or tachycardic Rhythm: Negative for abnormal rhythm GI non-tender, non-distended and no masses Inspection: Negative for abdominal distention Palpation: soft; Negative for guarding or rebound tenderness present Back/Spine no CVA tenderness General Back: Negative for CVA tenderness Cervical Spine: Negative for cervical spine tenderness Lumbar Spine / Lower Back: Negative for lumbar spinal tenderness Neuro oriented x3, CN's II-XII intact bilaterally, moves all extremities and no focal motor deficits Marion Coma Scale: document GCS findings Spontaneous Obeys Commands Oriented 15 Sensorium / Orientation: alert, oriented to person, oriented to place and oriented to time; Negative for orientation impaired or confused Motor Exam: strength 5/5 throughout Psych mental status grossly normal and thought process normal Appearance: Negative for unkempt Attitude: No agitated Mood & Affect: Negative for depressed, anxious or tearful Skin Skin Narrative: Nasal bridge abrasion. Dried blood. Rashes: no rashes Trauma: abrasion MDM MDM MDM Narrative Medical decision making narrative: 79-year-old female tripped at home and fell hit her face causing abrasion to her nose possible fracture. She is also discomfort at her left cheek. But there is no significant swelling. CAT scan of her head and facial bones to be obtained. X-rays of both knees will be obtained. She is only wanted Tylenol for pain. Nurses will clean up the wound on her face. Repeat exam at 6:20 PM unchanged. Patient is doing well. We went over her CAT scan results showed a nasal fracture. Her knee x-rays showed no fractures or dislocations. She will be discharged home. Ice to all sore areas. Tylenol for pain. Keep her facial wound clean. Follow-up with her doctor as needed. History & Record Review Discussion w/independent historian: Patient and Family Additional record(s) reviewed:: Prior inpatient record, Prior outpatient record, Prior ED visit and Prior labs Radiography Diagnostic Testing: Clinical Impression(s) from Imaging Studies Brain CT 08/19/24 16:29 IMPRESSION: No acute findings. Mild microvascular ischemic changes. Electronically Signed: Lorena Ireland MD at 17:18 EST Reading Location ID and State: Patito Monk MD Tel , Service support , Facial/Sinus 08/19/24 16:29 IMPRESSION: Nasal fracture. Nasal septal deviation. Trace chronic sinusitis. Electronically Signed: Lorena Ireland MD at 17:24 EST Reading Location ID and State: Patito Monk MD Tel , Service support , Knee X-Ray 08/19/24 16:29 IMPRESSION: No acute findings. Electronically Signed: Lorena Ireland MD at 17:09 EST Reading Location ID and State: Patito Monk MD Tel , Service support , Knee X-Ray 08/19/24 16:55 IMPRESSION: No acute findings. Electronically Signed: Lorena Ireland MD at 17:13 EST Reading Location ID and State: Patito Monk MD Tel , Service support , Left knee 4 views interpreted by myself and the radiologist shows a partial knee prosthesis. There is no acute fracture or dislocation. 4 views. Right knee 4 views interpreted by myself shows no acute fracture or dislocation. Chronic arthritic changes. Also read by the radiologist agrees. Discharge Plan Triage Chief Complaint: Fall ED Provider: Ephraim Bell Dx/Rx/DC Orders Clinical Impression: Fall, Closed head injury, Fracture closed, nasal bone, Contusion of right knee, Contusion of knee, left Instructions: ED Soft Tissue Contusion, ED Nose Fracture, with X-Ray, ED Head Injury (Adult) Prescriptions: No Action acetaminophen 500 mg Tablet 1,000 mg PO Q8H PRN PRN (Reason: Pain Score 1-10) Qty: 0 0RF fluticasone propionate 50 mcg/actuation [place],Suspension 1 spray NASAL DAILY PRN (Reason: CONGESTION) Qty: 0 0RF albuterol sulfate [Ventolin HFA] 90 mcg/actuation Hfa Aerosol Inhaler 2 puff inhalation Q6H PRN PRN (Reason: Sob &/Or Wheezing) Qty: 0 0RF meloxicam 7.5 mg tablet 7.5 mg PO BID ascorbic acid (vitamin C) 500 mg tablet 1,000 mg PO LUNCH aspirin 81 mg tablet,chewable 81 mg PO BREAKFAST rosuvastatin [Crestor] 5 mg tablet 5 mg PO QHS cholecalciferol (vitamin D3) 25 mcg (1,000 unit) tablet 50 mcg PO DAILY pantoprazole 40 mg tablet,delayed release (DR/EC) 40 mg PO DAILY 30 Days Qty: 30 0RF metoprolol succinate 25 mg tablet extended release 24 hr 25 mg PO BID 30 Days Qty: 60 0RF bupropion HCl 150 mg tablet extended release 24 hr 150 mg PO DAILY 30 Days Qty: 30 0RF folic acid 1 mg tablet Patient Comments: TAKE 1 TABLET BY MOUTH EVERY DAY meclizine 25 mg tablet 25 mg PO TID PRN (Reason: dizziness) Qty: 15 0RF Primary Care Provider: Layla Bellamy Referrals: Layla Bellamy, PA [Primary Care Provider] - 1 Week if not improving Activity Restrictions/Additional Instructions: You have a broken nose. Ice to your face and your knees. Tylenol for pain. Follow-up your primary care provider as needed. Return if worse. Print Language: Kyrgyz Disposition Disposition: Home, Self Care
[2024-08-19] MEDS: Acetaminophen 500 MG Tablet 1000 MG PO (16:37)
--- NOTE | 2024-08-19 16:55 | RAD_ITS ---
INDICATION: fall EXAMINATION/TECHNIQUE: X-RAY - RIGHT XR Knee Complete 4 Views or More 4 VIEWS COMPARISON: FINDINGS: No acute fracture. Lateral patellar subluxation. No destructive bone changes. Joint spaces are well-maintained. Normal alignment. Soft tissues are unremarkable. No radiopaque foreign body or soft tissue gas. RAD/Knee 4 or More Views IMPRESSION: No acute findings. Electronically Signed: Lorena Ireland MD at 17:13 EST Reading Location ID and State: [id number] / Tel , Service support ,
[2024-08-19 18:13] VITALS: PULSE 72; RESP 19; O2SAT 96
[2024-08-19 18:38] VITALS: BP 155/61; PULSE 72; RESP 19; TEMP 36.2; O2SAT 96
[2024-08-19 18:41] VITALS: BP 127/63; PULSE 81; RESP 15; TEMP 36.4; O2SAT 96
== END 2024-08-19 18:43 | disposition home or self-care (01) ==
PROVIDERS: Emergency Provider Emergency Medicine; PCP Physician Assistant; Visit Provider Emergency Medicine
DX: S02.2XXA Fracture of nasal bones, initial encounter for closed fracture (principal); S80.01XA Contusion of right knee, initial encounter; S80.02XA Contusion of left knee, initial encounter; W01.0XXA Fall on same level from slipping, tripping and stumbling without subsequent striking against object, initial encounter; Y92.009 Unspecified place in unspecified non-institutional (private) residence as the place of occurrence of the external cause; I25.10 Atherosclerotic heart disease of native coronary artery without angina pectoris; I10 Essential (primary) hypertension; E78.5 Hyperlipidemia, unspecified; Z79.82 Long term (current) use of aspirin; Z79.899 Other long term (current) drug therapy
CPT/HCPCS: 70450; 70486; 73564; 99282

== ENCOUNTER 2025-08-23 03:41 | Emergency (ER) | payer MEDICARE, BC, SELFPAY ==
[2025-08-23 03:41] VITALS: BP 177/88; PULSE 95; RESP 14; TEMP 36.9; O2SAT 98; BMI 25.2
--- NOTE | 2025-08-23 03:54 | RAD_ITS ---
PROCEDURE: CHEST PA AND LATERAL 08/23/2025 REASON FOR EXAM: COUGH TECHNIQUE: Procedure Code: RADCXR Modality: DX Procedure: CHEST PA AND LATERAL COMPARISON: Chest x-ray 02/12/2023. FINDINGS: Hardware: None Heart: No cardiomegaly. Mediastinum: Unremarkable. Lungs: Interstitial densities in the lower left lung may represent pneumonia. No pleural effusion or pneumothorax. Bones: No acute bony abnormalities. RAD/Chest PA and Lateral IMPRESSION: Interstitial densities in the lower left lung may represent pneumonia. Reading Location: [id number]
[2025-08-23] MEDS: 0.9% Normal Saline (1000mL) 1,000 ML 999 ML IV (04:11)
--- OUTSIDE RECORDS SUMMARY | 2025-08-23 04:25 | XMS RPT_ITS | CCD ---
Author Organization [facility] CliniSyri Care Team Providers Care Ribbon Cutter Name Role Phone Salma Cunningham Unavailable Unavailable Layla Bellamy PA-C Primary Care Provider Masci DO Yash A Unavailable Salma Cunningham Unavailable Unavailable Layla Bellamy PA-C Primary Care Provider Masci DO Yash A Unavailable Steve Freedman RN Unavailable Steve Freedman RN Unavailable Layla Bellamy PA-C Primary Care Provider Aquiles SHABAZZ Yash A Unavailable Raul Bellamy PA-C Primary Care Provider Unavailable DILSHAD GARCIA Referring Unavailable RAUL BELLAMY Primary Care Unavailable Matthias Dias MD Primary Care Provider Steve Freedman RN Unavailable FELEICA CALDERON Referring Unavailable RAUL BELLAMY Primary Care Unavailable PROVIDER, UNKNOWN Admitting Unavailable PROVIDER, UNKNOWN Attending Unavailable MATTHIAS DIAS Primary Care Unavailable PROVIDER, UNKNOWN Admitting Unavailable PROVIDER, UNKNOWN Attending Unavailable RAUL BELLAMY Primary Care Unavailable Haagen WATER MECHANIC.Dominga LR Unavailable Suppan WATER MECHANIC.BE, Afia A Unavailable Ephraim Bell Attending Unavailable Layla Pisano Primary Care Unavailable Suppan WATER MECHANIC.BE, Afia A Unavailable Suppan WATER MECHANIC.BE, Afia A Unavailable MATTHIAS DIAS Primary Care Unavailable DILSHAD GARCIA Attending Unavailable SUPPAN, AFIA A Referring Unavailable LARISSA, MATTHIAS J Primary Care Unavailable FRANCISCO BROOKS Attending Unavailable LARISSA, MATTHIAS J Primary Care Unavailable DOMINGA ANN Attending Unavailable SUPPAN, AFIA A Referring Unavailable LARISSA, MATTHIAS J Primary Care Unavailable LARISSA, MATTHIAS J Primary Care Unavailable SALMA MEDINA Attending Unavailable LARISSA, MATTHIAS Joshi Primary Care Unavailable SUPPAN, AFIA A Attending Unavailable SUPPAN, AFIA A Referring Unavailable LRAISSA, MATTHIAS J Primary Care Unavailable RAUL BELLAMY Primary Care Unavailable SALMA MEDINA Attending Unavailable SUPPAN, AFIA A Referring Unavailable LARISSA, MATTHIAS Madelyn Primary Care Unavailable FIDEL LAMBERT Attending Unavailable LARISSA, MATTHIAS Joshi Referring Unavailable LARISSA, MATTHIAS J Primary Care Unavailable SUPPAN, AFIA A Referring Unavailable LARISSA, MATTHIAS J Primary Care Unavailable SUPPAN, AFIA A Referring Unavailable FIDEL LAMBERT Attending Unavailable LARISSA, MATTHIAS Joshi Primary Care Unavailable [facility], MATTHIAS Joshi Primary Care Unavailable SUPPAN, AFIA A Referring Unavailable FIDEL LAMBERT Attending Unavailable LARISSA, [facility] Primary Care Unavailable FIDEL LAMBERT Attending Unavailable SUPPAN, AFIA A Referring Unavailable SUPPAN, AFIA A Referring Unavailable LARISSA, MATTHIAS Madelyn Primary Care Unavailable FIDEL LAMBERT Attending Unavailable LARISSA, [facility] Primary Care Unavailable DILSHAD GARCIA Referring Unavailable LARISSA, [facility] Primary Care Unavailable DILSHAD GARCIA Attending Unavailable [facility], MATTHIAS Joshi Primary Care Unavailable DILSHAD GARCIA Referring Unavailable WILFRIDO APODACA Referring Unavailable [facility], [facility] Primary Care Unavailable [facility], [facility] Primary Care Unavailable SUPPAN, AFIA A Attending Unavailable [facility], [facility] Primary Care Unavailable SELF Referring Unavailable SUPPAN, AFIA A Attending Unavailable [facility], [facility] Primary Care Unavailable Allergies Allergy Classification Reported Allergen(s) Allergy Type Date of Onset Reaction(s) Facility fluticasone / vilanterol (1 source) fluticasone / vilanterol Drug Allergy 1 Other: See Comments [facility] Glycopeptides (antibiotic) (1 source) Vancomycin Drug Allergy 2 Other: See Comments [facility] Opioid Agonists (1 source) oxyCODONE Drug Allergy 1 Intolerance [facility] Penicillins (antibiotic) (1 source) Penicillins Drug Allergy 5 Other: See Comments [facility] Work Phone: [phone] Promethazine (1 source) Promethazine Drug Allergy 0 Mental Status Change, Intolerance [facility] Work Phone: Sulfonamides (antibiotic) (1 source) Sulfonamides (Antibiotic) Drug Allergy 5 [facility] (20 sources) Adhesive agent; Translations: [ADHESIVE] Drug Intolerance 1 Rash [facility] (13 sources) fluticasone / vilanterol; Translations: [FLUTICASONE FUROATE-VILANTER OL] Drug Allergy 1 Other: See Comments [facility] (11 sources) HMG-CoA reductase inhibitor; Translations: [[id number] REDUCTASE INHIBITORS] Drug Intolerance 4 Other: See Comments [facility] Work Phone: (20 sources) oxyCODONE; Translations: [OXYCODONE] Drug Allergy 1 Intolerance [facility] Work Phone: [phone] (17 sources) Penicillins; Translations: [PENICILLINS] Drug Allergy 5 Other: See Comments [facility] Work Phone: [phone] (20 sources) Promethazine; Translations: [PROMETHAZINE HCL] Drug Allergy 0 Mental Status Change, Intolerance [facility] Work Phone: [phone] (20 sources) Sulfonamides (Antibiotic); Translations: [SULFA (SULFONAMIDE ANTIBIOTICS)] Propensity to adverse reactions 5 [facility] Work Phone: (20 sources) Vancomycin; Translations: [VANCOMYCIN] Drug Allergy 2 Other: See Comments [facility] (20 sources) HMG-CoA reductase inhibitor Drug Intolerance 4 Other: See Comments [facility] Work Phone: [phone] (20 sources) Penicillins Drug Allergy 5 Other: See Comments [facility] Work Phone: [phone] (20 sources) fluticasone / vilanterol Drug Allergy 1 Other: See Comments [facility] (1 source) Penicillins Drug allergy (disorder) 4 [facility] (1 source) Promethazine Drug Allergy 4 [facility] (1 source) Sulfonamides (Antibiotic) Drug allergy (disorder) 4 [facility] (1 source) Vancomycin Drug Allergy 4 [facility] (1 source) Yfmohzi-Gcz-Rlo Reductase Inhibitor Drug allergy (disorder) 4 [facility] (10 sources) Penicillins Drug Allergy 5 Other: See Comments [facility] Medications Current Medications Medication Drug Class(es) Dates Sig (Normalized) Sig (Original) acetaminophen 500 mg oral tablet (20 sources) Start: 12-29-2020 take 2 tablets by mouth every eight hours as needed acetaminophen (TYLENOL) 500 mg tablet Take 2 tablets by mouth every 8 hours as needed. 12/29/2020 Active Comment on above: Take 2 tablets by mo [facility] every 8 hours as needed. [id number] 200 actuat albuterol 0.09 mg/actuat metered dose inhaler (20 sources) beta2-Adrenergic Agonist Start: 09-03-2023 take 2 puff(s) by inhalation every six hours as needed albuterol HFA (PROAIR HFA) 90 mcg/actuation inhaler Indications: Wheezing Inhale 2 Puffs as instructed every 6 hours as needed. 18 g 11 09/03/2023 Active Start: 06-07-2020 take 2 puff(s) by in halation every six hours as needed albuterol HFA (PROAIR HFA) 90 mcg/actuation inhaler Indications: Wheezing Inhale 2 Puffs as instructed every 6 hours as needed. 18 g 11 06/07/2020 Active Comment on above: Inhale 2 Puffs as in structed every 6 hours as needed. Ascorbic Acid (20 sources) Vitamin C take 1 tablet by mouth once daily ascorbic acid (VITAMIN C ORAL) Take 1 tablet by mouth once daily. 1000mg Active take 1 tablet by mouth once cory y ascorbic acid (VITAMIN C ORAL) Take 1 tablet by mouth once daily. 1000mg 0 Active take 1 tablet by mouth once cory y ascorbic acid (VITAMIN C ORAL) Take 1 tablet by mouth once daily. 0 Active Comment on above: [facility] Take 1 tablet by diaz th once daily. 1000mg 24 hr buPROPion hydrochloride 300 mg extended release oral tablet (20 sources) Aminoketone Start: End: take 1 tablet by mouth once daily buPROPion XL (WELLBUTRIN XL) 300 mg 24 hr tablet Indications: Anxiety with depression Take 1 tablet by mouth once daily. 90 tablet 3 02/04/2025 02/04/2026 Active Start: 07-10-2023 End: 04-23-2025 take 1 tablet by mouth once daily buPROPion XL (WELLBUTRIN XL) 150 mg 24 hr tablet Indications: Anxiety with depression Take 1 tablet by mouth once daily. 90 tablet 3 04/23/2024 04/23/2025 Active Start: 10-30-2021 End: 01-03-2023 take 1 tablet by mouth once daily buPROPion XL (WELLBUTRIN XL) 150 mg 24 hr tablet Take 1 tablet by mouth once daily. 30 tablet 5 01/03/2023 Active Start: 05-29-2021 End: 10-28-2021 take 1 tablet by mouth once daily buPROPion XL (WELLBUTRIN XL) 150 mg 24 hr tablet Take 1 tablet by mouth once daily. 30 tablet 5 05/29/2021 10/28/2021 Discontinued Comment on above: Take 1 tablet by diaz th once daily. cholecalciferol 0.025 mg oral tablet (20 sources) Vitamin D take 1 tablet by mouth once daily cholecalciferol (VITAMIN D3) 1,000 unit tab tablet Take 1,000 Units by mouth once daily. Active Comment on above: Take 1,000 Units by mouth once daily. clindamycin 300 mg oral capsule (20 sources) Lincosamide Antibacterial Start: 023 take 2 capsules by mouth every hour clindamycin (CLEOCIN) 300 mg capsule Take 2 capsules by mouth one hour prior to dental cleaning/procedure 2 capsule 1 11/07/2022 Active Comment on above: Take 2 capsules by m outh one hour prior to dental cleaning/procedure doxycycline hyclate 100 mg oral tablet (20 sources) Tetracycline-class Drug Start: End: take 1 tablet by mouth twice daily doxycycline (VIBRA-TABS) 100 mg tablet Indications: Acute recurrent sinusitis, unspecified location Take 1 tablet by mouth two times a day for 10 days. 20 tablet 11/22/2024 12/02/2024 Active Start: 10-23-2024 End: 11-02-2024 take 1 tablet by mouth twice daily doxycycline (VIBRA-TABS) 100 mg tablet Indications: Acute maxillary sinusitis, recurrence not specified Take 1 tablet by mouth two times a day for 10 days. 20 tablet 10/23/2024 11/02/2024 Active Start: 03-09-2024 End: 03-19-2024 take 1 tablet by mouth twice daily doxycycline (VIBRA-TABS) 100 mg tablet Indications: Bacterial sinusitis Take 1 tablet by mouth two times a day for 10 days. 20 tablet 03/09/2024 03/19/2024 Start: 07-01-2023 End: 07-08-2023 take 1 tablet by mouth twice daily doxycycline monohydrate 100 mg tablet Take 1 tablet by mouth two times a day for 7 days. 14 tablet 0 07/01/2023 07/08/2023 Active Start: 10-05-2021 End: 06-26-2022 take 1 tablet by mouth twice daily doxycycline (VIBRA-TABS) 100 mg tablet Take 1 tablet by mouth twice daily. 180 tablet 0 03/28/2022 04/12/2022 Discontinued (Course of therapy completed) Comment on above: Take 1 tablet by diaz th twice daily. Take 1 tablet by diaz th two times a day for 7 days. fluticasone propionate 0.05 mg/actuat metered dose nasal spray (20 sources) Corticosteroid take 1 spray(s) nasal route once daily fluticasone (FLONASE) 50 mcg/actuation nasal spray Use 1 [place] in each nostril once daily. Active Comment on above: Use 1 [place] in each nostril once daily. folic acid 1 mg oral tablet (20 sources) Start: 09-03-19 End: 04-22-20 take 1 tablet by mouth once daily folic acid 1 mg tablet Indications: Gastroesophageal reflux disease without esophagitis Take 1 tablet by mouth once daily. 90 tablet 3 04/22/2025 Active Start: 07-12-2021 End: 09-17-2022 take 1 tablet by mouth once daily folic acid 1 mg tablet Take 1 tablet by mouth once daily. 90 tablet 3 09/17/2022 Active Comment on above: Take 1 tablet by diaz once daily. lansoprazole 30 mg delayed release oral capsule (20 sources) Proton Pump Inhibitor Start: 02-11-20 End: 04-22-20 take 1 capsule by mouth once daily lansoprazole (PREVACID) 30 mg capsule Indications: Gastroesophageal reflux disease without esophagitis Take 1 capsule by mouth once daily. 90 capsule 3 04/22/2025 Active Comment on above: Take 1 capsule by mo [facility] once daily. 24 hr metoprolol succinate 25 mg extended release oral tablet (20 sources) beta-Adrenergic Domi Start: 11-01-19 End: 04-22-20 take 1 tablet by mouth twice daily metoprolol succinate ER (TOPROL XL) 25 mg 24 hr tablet Indications: Primary hypertension Take 1 tablet by mouth two times a day. 180 tablet 3 04/22/2025 Active Comment on above: Take 1 tablet by diaz twice daily. Take 1 tablet by diaz two times a day. take 1 tablet by diaz twice a day ondansetron 8 mg disintegrating oral tablet (20 sources) Serotonin-3 Receptor Antagonist Start: 09-24-19 End: 10-20-19 take 1 tablet by mouth every eight hours as needed for nausea ondansetron orally disintegrating (ZOFRAN ODT) 8 mg disintegrating tablet Indications: Gastroenteritis , Nausea Take 1 tablet by mouth every 8 hours as needed for nausea/vomiting. 30 tablet 5 04/23/2024 10/20/2024 Active Start: 01-01-2022 End: 01-01-2022 ondansetron (PF) 4 mg inject ion (ZOFRAN) Start: 01-01-2022 End: 09-22-2022 take 1 tablet by mouth every eight hours as needed for nausea ondansetron orally disintegrating (ZOFRAN ODT) 8 mg disintegrating tablet Indications: Gastroenteritis , Nausea Take 1 tablet by mouth every 8 hours as needed for nausea/vomiting. 20 tablet 0 08/21/2022 09/22/2022 Discontinued Start: 02-10-2021 End: 04-23-2024 take 1 tablet by mouth every eight hours as needed for nausea and nausea ondansetron (ZOFRAN) 4 mg tablet Indications: Nausea Take 1 tablet by mouth every 8 hours as needed. 9 tablet 3 12/26/2021 04/23/2024 Discontinued (Clinical Decision) Comment on above: Take 1 tablet by diaz th every 8 hours as needed. Take 1 tablet by diaz th every 8 hours as needed for nausea/vomiting. Polyethylene Glycols (20 sources) polyethylene gly col 3350 (MIRALAX ORAL) Take 1 Tablespoonful by mouth as needed. Active polyethylene gly col 3350 (MIRALAX ORAL) Take 1 Tablespoonful by mouth as needed. 0 Active Comment on above: Take 1 Tablespoonful by mouth as needed. predniSONE 10 mg oral tablet (2 sources) Start: 11-23-19 End: 11-26-19 take 1 tablet by mouth twice daily predniSONE (DELTASONE) 10 mg tablet Indications: Acute recurrent sinusitis, unspecified location Take 1 tablet by mouth two times a day for 3 days. 6 tablet 11/22/2024 11/25/2024 Active rosuvastatin calcium 5 mg oral tablet (20 sources) HMG-CoA Reductase Inhibitor Start: 05-17-20 End: 04-22-20 take 1 tablet by mouth once daily at bedtime rosuvastatin (CRESTOR) 5 mg tablet Indications: Mixed hyperlipidemia Take 1 tablet by mouth daily at bedtime. 90 tablet 3 04/22/2025 04/22/2026 Active Comment on above: TAKE 1 TABLET BY DIAZ TH EVERYDAY AT BEDTIME Take 1 tablet by diaz th daily at bedtime. valACYclovir 1000 mg oral tablet (2 sources) Herpesvirus Nucleoside Analog DNA Polymerase Inhibitor, Herpes Simplex Virus Nucleoside Analog DNA Polymerase Inhibitor, Herpes Zoster Virus Nucleoside Analog DNA Polymerase Inhibitor Start: 12-09-19 End: 12-16-19 take 1 tablet by mouth twice daily valACYclovir (VALTREX) 1 gram tablet Indications: Herpes zoster without complication Take 1 tablet by mouth two times a day for 7 days. 14 tablet 12/08/2024 12/15/2024 Active Vitamin B Complex (20 sources) take 1 tablet by mouth once daily vitamin B complex (B COMPLEX 1 ORAL) Take 1 tablet by mouth once daily. Active take 1 tablet by mouth once cory y vitamin B complex (B COMPLEX 1 ORAL) Take 1 tablet by mouth once daily. 0 Active vitamin B comple x (B COMPLEX 1 ORAL) Take by mouth. 0 Active Comment on above: Take by mouth. Take 1 tablet by diaz th once daily. Completed/Discontinued Medications Medication Drug Class(es) Dates Sig (Normalized) Sig (Original) aspirin 81 mg delayed release oral tablet (1 source) Platelet Aggregation Inhibitor, Nonsteroidal Anti-inflammatory Drug End: 10-09-2021 take 1 tablet by mouth once daily aspirin, enteric coated (ASPIRIN, ENTERIC COATED) 81 mg EC tablet Take 81 mg by mouth once daily. 0 10/09/2021 Discontinued (Course of therapy completed) Comment on above: Take 81 mg by mouth once daily. busPIRone hydrochloride 5 mg oral tablet (20 sources) Start: 03-27-2021 End: 04-04-2023 take 1 tablet by mouth three times daily busPIRone (BUSPAR) 5 mg tablet Indications: Adjustment reaction with anxiety and depression Take 1 tablet by mouth three times daily. 270 tablet 1 11/19/2022 04/04/2023 Discontinued Comment on above: Take 1 tablet by diaz th three times daily. COMPOUNDED PRESCRIPTION (14 sources) Start: 05-06-2013 End: 03-28-2022 COMPOUNDED PRESCRIPTION Initiate CPAP @ 12 cm of water with humidification. Mask (per patient preference) optional chin strap (if indicated) , filters, tubing, humidifier and lifetime supplies. Dx. RAVIN 327.23 1 Device 0 05/06/2013 03/28/2022 Discontinued Start: 05-06-2013 COMPOUNDED PRE SCRIPTION Initiate CPAP @ 12 cm of water with humidification. Mask (per patient preference) optional chin strap (if indicated) , filters, tubing, humidifier and lifetime supplies. Dx. RAVIN 327.23 1 Device 0 05/06/2013 Active Comment on above: Initiate CPAP @ 12 c m of water with humidification. Mask (per patient preference) optional chin strap (if indicated) , filters, tubing, humidifier and lifetime supplies. Dx. RAVIN 327.23 CPAP (20 sources) End: 10-23-2024 CPAP 10/23/2024 Discontinued (Cost of medication) CPAP Active CPAP diclofenac sodium 0.01 mg/mg topical gel (20 sources) Nonsteroidal Anti-inflammatory Drug Start: 04-23-2024 End: 04-23-2025 apply 2 g topically twice daily as needed diclofenac (VOLTAREN) 1 % topical gel Indications: Chronic pain of right upper extremity Apply 2 g to affected area two times a day as needed. 200 g 04/23/2024 02/05/2025 Discontinued (Discontinued by Patient) ferrous sulfate 325 mg oral tablet (14 sources) Start: 03-10-2021 End: 03-28-2022 take 1 tablet by mouth once daily at breakfast ferrous sulfate 325 mg (65 mg iron) tablet Take 1 tablet by mouth daily with breakfast. 30 tablet 5 03/10/2021 03/28/2022 Discontinued Comment on above: Take 1 tablet by mouth daily with breakf ast. 60 actuat formoterol fumarate 0.005 mg/actuat / mometasone furoate 0.1 mg/actuat metered dose inhaler (1 source) Corticosteroid, beta2-Adrenergic Agonist Start: 03-23-2021 End: 08-25-2021 take 2 puff(s) by inhalation twice daily mometasone-formote rol (DULERA) 100-5 mcg/actuation inhaler Indications: Moderate persistent asthma without complication Inhale 2 Puffs as instructed twice daily. 1 Inhaler 5 03/23/2021 08/25/2021 Discontinued Comment on above: Inhale 2 Puffs as instructed twice daily . gabapentin 100 mg oral capsule (10 sources) Anti-epileptic Agent Start: 12-11-2024 End: 02-05-2025 take 2 capsules by mouth three times daily as needed gabapentin (NEURONTIN) 100 mg capsule Indications: Herpes zoster without complication Take 2 capsules by mouth three times a day as needed for up to 30 days. 90 capsule 12/11/2024 02/05/2025 Discontinued (Course of therapy completed) Start: 12-08-2024 End: 01-07-2025 take 1 capsule by mouth three times daily as needed gabapentin (NEURONTIN) 100 mg capsule Indications: Herpes zoster without complication Take 1 capsule by mouth three times a day as needed for up to 30 days. 90 capsule 12/08/2024 12/11/2024 Discontinued (Adjust Sig - Block E-Cancel) Start: 11-17-2021 End: 01-01-2022 take 1 capsule by mouth once daily at bedtime gabapentin (NEURONTIN) 300 mg capsule Take 1 capsule by mouth daily at bedtime for 30 days. 30 capsule 0 11/17/2021 01/01/2022 Discontinued (Other) Comment on above: Take 1 capsule by mo uth daily at bedtime for 30 days. Lidocaine (1 source) Antiarrhythmic, Amide Local Anesthetic Start: 07-07-20 End: 07-07-20 OTHER, NEEDED, Starting on Sat07/07/24 at 1010, Until Sat07/07/24 at 1010, Intraprocedure meclizine hydrochloride 12.5 mg oral tablet (20 sources) Antiemetic Start: 07-10-20 End: 10-15-19 take 1 tablet by mouth every six hours as needed for dizziness meclizine (ANTIVERT) 12.5 mg tab Indications: Vertigo Take 1 tablet by mouth every 6 hours as needed (dizziness). 30 tablet 0 07/10/2022 10/15/2022 [facility]continued [facility] needed meclizine (ANTIVERT) 25 mg tab Take 25 m g by mouth three times daily as needed. From [facility] Active Comment on above: [facility] 6 hours as needed (dizziness). Take 25 mg by mouth three times daily as needed. From [facility] meloxicam 7.5 mg oral tablet (20 sources) Nonsteroidal Anti-inflammatory Drug Start: 12-21-2022 End: 01-22-2023 take 1 tablet by mouth once daily meloxicam (MOBIC) 7.5 mg tablet Take 1 tablet by mouth once daily. 30 tablet 0 01/22/2023 Active Start: 09-24-2022 End: 12-05-2022 take 1 tablet by mouth once daily meloxicam (MOBIC) 7.5 mg tablet Take 1 tablet by mouth once daily. 30 tablet 0 11/05/2022 12/05/2022 Active Start: 08-13-2022 End: 09-12-2022 take 1 tablet by mouth once daily meloxicam (MOBIC) 7.5 mg tablet Take 1 tablet by mouth once daily. 30 tablet 0 08/13/2022 09/12/2022 Active Start: 07-05-2022 End: 08-04-2022 take 1 tablet by mouth once daily meloxicam (MOBIC) 7.5 mg tablet Take 1 tablet by mouth once daily. 30 tablet 0 07/05/2022 08/04/2022 Active Start: 08-10-2021 End: 06-02-2022 take 1 tablet by mouth once daily meloxicam (MOBIC) 7.5 mg tablet Take 1 tablet by mouth once daily. 30 tablet 0 05/03/2022 06/02/2022 Active Comment on above: Take 1 tablet by diaz once daily. methocarbamol 500 mg oral tablet (6 sources) Muscle Relaxant Start: 5 End: take 1 tablet by mouth three times daily as needed methocarbamol (ROBAXIN) 500 mg tablet Indications: Chronic midline low back pain with sciatica, sciatica laterality unspecified Take 1 tablet by mouth three times a day as needed. 60 tablet 2 10/23/2024 11/23/2024 Discontinued (Course of therapy completed) nirmatrelvir tablet 150 mg and ritonavir tablet 100 mg in a dose pack (PAXLOVID) (3 sources) Start: End: nirmatrelvir tablet 150 mg and ritonavir tablet 100 mg in a dose pack (PAXLOVID) Administer ONE pink nirmatrelvir 150 mg tablet and ONE white ritonavir 100 mg tablet for a total of two tablets twice daily. 20 tablet 0 08/08/2022 08/13/2022 Start: 08-08-2022 End: 08-13-2022 nirmatrelvir tablet 150 mg a nd ritonavir tablet 100 mg in a dose pack (PAXLOVID) Administer ONE pink nirmatrelvir 150 mg tablet and ONE white ritonavir 100 mg tablet for a total of two tablets twice daily. 20 tablet 0 08/08/2022 08/13/2022 Active Comment on above: Administer ONE pink nirmatrelvir 150 mg tablet and ONE white ritonavir 100 mg tablet for a total of two tablets twice daily. perflutren lipid microspheres 1.3 mL in NaCl (PF) 0.9% 10 mL injection (DEFINITY) (20 sources) Start: 01-22-2023 End: 04-22-2024 perflutren lipid microspheres 1.3 mL in NaCl (PF) 0.9% 10 mL injection (DEFINITY) Start: 04-20-2021 End: 07-20-2022 perflutren lipid microsphere s 1.3 mL in NaCl (PF) 0.9% 10 mL injection (DEFINITY) 125 ml sodium chloride 9 mg/ ml prefilled syringe (20 sources) Start: 01-22-2023 End: 04-22-2024 sodium chloride 0.9 % (flush ) 10 mL (BD POSIFLUSH) Start: 04-20-2021 End: 07-20-2022 sodium chloride 0.9 % (flush ) 10 mL (BD POSIFLUSH) tiZANidine 2 mg oral tablet (20 sources) Central alpha-2 Adrenergic Agonist Start: 05-29-2024 End: 10-23-2024 take 1 tablet by mouth every eight hours as needed tiZANidine (ZANAFLEX) 2 mg tablet Indications: Spinal stenosis of lumbar region with neurogenic claudication , Radiculopathy, lumbar region Take 1 tablet by mouth every 8 hours as needed. 30 tablet 05/29/2024 10/23/2024 Discontinued (Discontinued by Patient) vibegron (GEMTESA) 75 mg tablet (17 sources) Start: 10-13-2021 take 1 tablet by mouth once daily vibegron (GEMTESA) 75 mg tablet Indications: Urinary urgency , Urge incontinence Take 1 tablet by mouth once daily. 30 tablet 5 10/13/2021 Active Start: 02-21-2021 End: 10-13-2021 take 1 tablet by mouth once daily vibegron (GEMTESA) 75 mg tablet Indications: Urinary urgency , Urge incontinence Take 1 tablet by mouth once daily. 30 tablet 5 02/21/2021 10/13/2021 Discontinued Comment on above: Take 1 tablet by diaz th once daily. vibegron (GEMTESA) 75 mg tablet (20 sources) Start: 09-25-2022 End: 09-28-2022 take 1 tablet by mouth once daily vibegron (GEMTESA) 75 mg tablet Indications: Urinary urgency , Urge incontinence Take 1 tablet by mouth once daily. 30 tablet 0 09/25/2022 09/28/2022 Discontinued Start: 09-25-2022 take 1 tablet by diaz th once daily vibegron (GEMTESA) 75 mg tablet Indications: Urinary urgency , Urge incontinence Take 1 tablet by mouth once daily. 30 tablet 0 09/25/2022 Active Start: 07-05-2022 End: 09-22-2022 take 1 tablet by mouth once daily vibegron (GEMTESA) 75 mg tablet Indications: Urinary urgency , Urge incontinence Take 1 tablet by mouth once daily. 30 tablet 0 07/05/2022 09/22/2022 Discontinued Start: 07-05-2022 take 1 tablet by diaz th once daily vibegron (GEMTESA) 75 mg tablet Indications: Urinary urgency , Urge incontinence Take 1 tablet by mouth once daily. 30 tablet 0 07/05/2022 Active Start: 05-29-2022 End: 07-05-2022 take 1 tablet by mouth once daily vibegron (GEMTESA) 75 mg tablet Indications: Urinary urgency , Urge incontinence Take 1 tablet by mouth once daily. 30 tablet 0 05/29/2022 07/05/2022 Discontinued Start: 05-29-2022 take 1 tablet by diaz th once daily vibegron (GEMTESA) 75 mg tablet Indications: Urinary urgency , Urge incontinence Take 1 tablet by mouth once daily. 30 tablet 0 05/29/2022 Active Start: 04-16-2022 End: 05-28-2022 take 1 tablet by mouth once daily vibegron (GEMTESA) 75 mg tablet Indications: Urinary urgency , Urge incontinence Take 1 tablet by mouth once daily. 30 tablet 0 04/16/2022 05/28/2022 Discontinued Start: 04-16-2022 take 1 tablet by diaz th once daily vibegron (GEMTESA) 75 mg tablet Indications: Urinary urgency , Urge incontinence Take 1 tablet by mouth once daily. 30 tablet 0 04/16/2022 Active Comment on above: Take 1 tablet by diaz th once daily. Problems Active Problems Problem Classification Problem Date Documented Da te Episodic/Chronic Adjustment disorders (20 sources) Adjustment disorder with depressed mood; Translations: [Adjustment disorder with depressed mood] Onset: 6 08-16-2021 Chronic Anxiety disorders (20 sources) Anxiety state; Translations: [Generalized anxiety disorder] Onset: 4 Resolved: 7 06-13-2017 Chronic Aortic; peripheral; and visceral artery aneurysms (20 sources) Aortic ectasia, unspecified site; Translations: [Aortic ectasia, unspecified site] Onset: 1 09-23-2021 Chronic Asthma (20 sources) Uncomplicated mild persistent asthma; Translations: [Mild persistent asthma, uncomplicated] Onset: 5 Resolved: 1 08-09-2015 Chronic Chronic kidney disease (20 sources) Chronic kidney disease stage 3B ; Translations: [Stage 3b chronic kidney disease (HCC)] Onset: 4 08-03-2024 Chronic Chronic kidney disease (1 source) Chronic kidney disease; Translations: [Stage 3b chronic kidney disease (HCC)] Onset: 4 Congestive heart failure; nonhypertensive (1 source) Chronic diastolic heart failure; Translations: [Chronic diastolic (congestive) heart failure] 07-25-2023 Chronic Deficiency and other anemia (2 sources) Iron deficiency anemia due to blood loss; Translations: [Iron deficiency anemia secondary to blood loss (chronic)] Chronic Diabetes mellitus without complication (2 sources) Prediabetes; Translations: [Prediabetes] Onset: 5 04-22-2025 Episodic Disorders of lipid metabolism (20 sources) Hyperlipidemia; Translations: [Hyperlipidemia, unspecified] Onset: 5 06-28-2015 Chronic Diverticulosis and diverticulitis (20 sources) Diverticulosis of colon; Translations: [Diverticulosis of large intestine without perforation or abscess without bleeding] 08-29-2015 Chronic Esophageal disorders (20 sources) Gastroesophageal reflux disease; Translations: [Gastro-esophageal reflux disease without esophagitis] Onset: 0 07-18-2010 Chronic Esophageal disorders (1 source) Esophageal disorders; Translations: [Gastroesophageal reflux disease with esophagitis without hemorrhage] Onset: 0 Essential hypertension (20 sources) Essential hypertension; Translations: [Essential (primary) hypertension] Onset: 5 Chronic Genitourinary symptoms and ill-defined conditions (20 sources) Urge incontinence of urine; Translations: [Urge incontinence] Onset: 6 08-16-2021 Chronic Headache; including migraine (2 sources) Migraine without aura, not refractory ; Translations: [Migraine without aura, not intractable, without status migrainosus] Onset: 5 04-22-2025 Chronic Heart valve disorders (20 sources) Non-rheumatic mitral regurgitation ; Translations: [Nonrheumatic mitral (valve) insufficiency] Onset: 9 09-23-2021 Chronic Hemorrhoids (20 sources) Internal hemorrhoids; Translations: [Other hemorrhoids] 08-29-2015 Episodic Immunizations and screening for infectious disease (1 source) Vaccination needed; Translations: [Encounter for immunization] Episodic Mood disorders (20 sources) Recurrent depression; Translations: [Major depressive disorder, recurrent, unspecified] Onset: 3 04-04-2023 Chronic Mood disorders (1 source) Mood disorders; Translations: [Anxiety and depression] Onset: 4 Nausea and vomiting (5 sources) Nausea; Translations: [Nausea] Episodic Noninfectious gastroenteritis (4 sources) Gastroenteritis; Translations: [Noninfective gastroenteritis and colitis, unspecified] Episodic Nutritional deficiencies (2 sources) Vitamin D deficiency; Translations: [Vitamin D deficiency, unspecified] Onset: 5 10-23-2024 Chronic Other and unspecified benign neoplasm (3 sources) Intraductal papilloma of left breast; Translations: [Benign neoplasm of left breast] 07-29-2024 Episodic Other connective tissue disease (1 source) History of revision of left total knee arthroplasty; Translations: [Presence of left artificial knee joint] Chronic Other connective tissue disease (20 sources) History of total knee arthroplasty; Translations: [Presence of left artificial knee joint] Onset: 1 12-28-2020 Chronic Other connective tissue disease (1 source) Presence of unspecified artificial knee joint; Translations: [Failure of total knee replacement, sequela] Onset: 1 Chronic Other connective tissue disease (1 source) Presence of left artificial knee joint; Translations: [S/P total knee arthroplasty, left] Onset: 1 Chronic Other connective tissue disease (20 sources) Muscle pain; Translations: [Myalgia, unspecified site] 08-16-2021 Episodic Other connective tissue disease (1 source) Other muscle spasm; Translations: [Muscle spasm] Onset: 4 Episodic Other diseases of kidney and ureters (1 source) Renal impairment; Translations: [Disorder of kidney and ureter, unspecified] Episodic Other ear and sense organ disorders (3 sources) Impacted cerumen of bilateral ears; Translations: [Impacted cerumen, bilateral] Episodic Other ear and sense organ disorders (1 source) Impacted cerumen, bilateral; Translations: [Bilateral impacted cerumen] Onset: 5 Episodic Other gastrointestinal disorders (20 sources) Irritable bowel syndrome with diarrhea; Translations: [Irritable bowel syndrome with diarrhea] Onset: 5 08-09-2015 Chronic Other gastrointestinal disorders (20 sources) Malabsorption - iron; Translations: [Intestinal malabsorption, unspecified] Onset: 1 06-29-2021 Chronic Other injuries and conditions due to external causes (1 source) Encounter for examination and observation following other accident; Translations: [Encounter for examination and observation following other accident] Onset: 5 Episodic Other lower respiratory disease (1 source) Respiratory tract congestion; Translations: [Other specified respiratory disorders] Episodic Other lower respiratory disease (2 sources) Cough; Translations: [Cough, unspecified type] Episodic Other nervous system disorders (1 source) Other chronic pain; Translations: [Chronic bilateral low back pain, unspecified whether sciatica present] Onset: 0 Chronic Other nervous system disorders (1 source) Other acute postprocedural pain; Translations: [Acute post-operative pain] Onset: 4 Episodic Other non-traumatic joint disorders (1 source) Stiffness of left knee; Translations: [Stiffness of left knee, not elsewhere classified] Episodic Other screening for suspected conditions (not mental disorders or infectious disease) (8 sources) Inconclusive mammography finding; Translations: [Inconclusive mammogram] Onset: 5 Episodic Other skin disorders (1 source) Night sweats; Translations: [Generalized hyperhidrosis] Episodic Other upper respiratory disease (20 sources) Seasonal allergy; Translations: [Other seasonal allergic rhinitis] 01-13-2018 Chronic Other upper respiratory disease (2 sources) Seasonal allergic rhinitis; Translations: [Other seasonal allergic rhinitis] 04-23-2024 Chronic Other upper respiratory disease (1 source) Other seasonal allergic rhinitis; Translations: [Seasonal allergic rhinitis, unspecified trigger] Onset: 5 Chronic Other upper respiratory disease (1 source) Nasal sinus problem; Translations: [Other specified disorders of nose and nasal sinuses] Episodic Other upper respiratory infections (2 sources) Chronic sinusitis, unspecified; Translations: [Unspecified sinusitis (chronic)] 07-01-2023 Chronic Other upper respiratory infections (2 sources) Acute maxillary sinusitis; Translations: [Acute maxillary sinusitis, unspecified] 10-23-2024 Episodic Otitis media and related conditions (1 source) Acute right otitis media; Translations: [Otitis media, unspecified, right ear] 07-01-2023 Episodic Gwendolyn-; endo-; and myocarditis; cardiomyopathy (except that caused by tuberculosis or sexually transmitted disease) (15 sources) Heart valve disorder; Translations: [Endocarditis, valve unspecified] Onset: 5 10-23-2024 Chronic Pulmonary heart disease (20 sources) Pulmonary hypertension, unspecified; Translations: [Other chronic pulmonary heart diseases] Onset: 1 09-23-2021 Chronic Residual codes; unclassified (20 sources) Obstructive sleep apnea syndrome; Translations: [Obstructive sleep apnea (adult) (pediatric)] Onset: 3 Resolved: 1 01-13-2018 Chronic Residual codes; unclassified (1 source) Obstructive sleep apnea (adult) (pediatric); Translations: [Obstructive sleep apnea] Onset: 2 Chronic Residual codes; unclassified (1 source) Other general symptoms and signs; Translations: [Other general symptoms] Episodic Residual codes; unclassified (2 sources) Postmenopausal state; Translations: [Asymptomatic menopausal state] 10-22-2023 Episodic Residual codes; unclassified (1 source) Flushing; Translations: [Flushing] 04-22-2025 Episodic Residual codes; unclassified (1 source) Flushing; Translations: [Hot flashes] Onset: 5 Episodic Spondylosis; intervertebral disc disorders; other back problems (20 sources) Degeneration of lumbar intervertebral disc; Translations: [Other intervertebral disc degeneration, lumbar region] Onset: 7 06-13-2017 Chronic Spondylosis; intervertebral disc disorders; other back problems (20 sources) Chronic low back pain; Translations: [Chronic bilateral low back pain] Onset: 0 06-27-2020 Episodic Unclassified (1 source) Chronic bilateral low back pain, unspecified whether sciatica present; Translations: [Chronic bilateral low back pain, unspecified whether sciatica present] Onset: 0 Past or Other Problems Problem Classification Problem Date Documented Da te Episodic/Chronic Administrative/social admission (20 sources) Patient encounter status; Translations: [Persons encountering health services in other specified circumstances] Onset: 2 09-23-2021 Episodic Complication of device; implant or graft (20 sources) Prosthetic joint infection; Translations: [Infection and inflammatory reaction due to unspecified internal joint prosthesis, initial encounter] Onset: 1 08-16-2021 Episodic Conditions associated with dizziness or vertigo (20 sources) Benign paroxysmal positional vertigo; Translations: [Benign paroxysmal vertigo, unspecified ear] Onset: 7 06-26-2017 Episodic Deficiency and other anemia (20 sources) Iron deficiency anemia; Translations: [Iron deficiency anemia, unspecified] Onset: 1 Resolved: 3 06-29-2021 Episodic Gastrointestinal hemorrhage (20 sources) Gastrointestinal hemorrhage; Translations: [Gastrointestinal hemorrhage, unspecified] Resolved: 7 12-11-2016 Episodic Genitourinary symptoms and ill-defined conditions (20 sources) Increased frequency of urination; Translations: [Frequency of micturition] Onset: 3 08-04-2013 Episodic Neoplasms of unspecified nature or uncertain behavior (20 sources) Benign neoplasm of pancreas; Translations: [Neoplasm of unspecified behavior of digestive system] Onset: 5 03-19-2019 Episodic Nonmalignant breast conditions (20 sources) Breast finding ; Translations: [Breast density] Onset: 0 Resolved: 7 12-11-2016 Episodic Nonspecific chest pain (20 sources) Chest pain; Translations: [Other chest pain] Onset: 1 Resolved: 1 08-16-2021 Episodic Osteoarthritis (20 sources) Osteoarthritis of left knee joint; Translations: [Unilateral primary osteoarthritis, left knee] Onset: 5 Resolved: 1 08-16-2021 Chronic Other and unspecified benign neoplasm (2 sources) Benign neoplasm of left breast; Translations: [Intraductal papilloma of left breast] Onset: 4 Episodic Other connective tissue disease (20 sources) Chronic pain of right upper limb; Translations: [Pain in right arm] Onset: 0 01-08-2020 Episodic Other connective tissue disease (20 sources) Bilateral plantar fasciitis; Translations: [Plantar fascial fibromatosis] Onset: 2 Resolved: 7 12-11-2016 Episodic Other connective tissue disease (1 source) Myalgia, unspecified site; Translations: [Myalgia] Onset: 1 Episodic Other gastrointestinal disorders (20 sources) Diarrhea; Translations: [Diarrhea, unspecified] Onset: 9 Resolved: 7 12-11-2016 Episodic Other lower respiratory disease (20 sources) Multiple nodules of lung; Translations: [Other nonspecific abnormal finding of lung field] Resolved: 3 03-15-2021 Episodic Other lower respiratory disease (20 sources) Dyspnea; Translations: [Shortness of breath] Onset: 1 04-23-2021 Episodic Other lower respiratory disease (1 source) Shortness of breath; Translations: [SOB (shortness of breath)] Onset: 1 Episodic Other non-traumatic joint disorders (20 sources) Pain in left knee; Translations: [Pain in joint, lower leg] Onset: 0 06-27-2020 Episodic Other nutritional; endocrine; and metabolic disorders (20 sources) Obese class I; Translations: [Obesity, unspecified] Onset: 8 Resolved: 1 08-16-2021 Chronic Residual codes; unclassified (3 sources) Other specified postprocedural states; Translations: [Other postprocedural status] Onset: 5 08-12-2024 Episodic Viral infection (3 sources) Herpes zoster; Translations: [Zoster without complications] Onset: 5 12-08-2024 Episodic Results Test Name Value Interpretation Reference Range Facility CNTHERAPYon 06-30-2025 CNTHERAPY OT/PT/Speech Visit (PTWS) CHERYL MARRERO ([id number]) 1945 F Date Time Provider Department 06/30/25 2:30 PM FIDEL LAMBERT PTWS Date Time Provider Department Center 06/30/2025 2:30 PM [id number], SEAN PTWS Handy Rueda Reason for Visit: PT Progress Note [1596] Primary Visit Diagnosis:DDD (degenerative disc disease), cervical [M50.30] Allergies As of Date: 06/30/2025 Noted Allergy Reaction PHENERGAN (PROMETHAZINE HCL) 12/16/2009 1 - Mental Status Change 5 - Intolerance [id number] REDUCTASE INHIBIT*05/14/2014 14 - Other: See Comments Comments: Elevated liver enzymes in hospital, statins stopped. ADHESIVE 08/02/2011 2 - Rash BREO ELLIPTA (FLUTICASONE FUROATE*04/18/2021 14 - Other: See Comments Comments: Hoarseness/ Shortness of breath PENICILLINS 06/18/2005 14 - Other: See Comments Comments: Local reaction at site of injection ROXICODONE (OXYCODONE) 08/16/2021 5 - Intolerance Comments: Severe nausea and lightheadness SULFA (SULFONAMIDE ANTIBIOTICS) 06/18/2005 VANCOMYCIN 10/05/2021 14 - Other: See Comments Comments: redness Date Reviewed: 04/22/2025 Reviewed by: Bibi Scott MA - Fully Assessed Prescriptions as of 07/02/2025 - folic acid 1 mg tablet Take 1 tablet by mouth once daily. - lansoprazole (PREVACID) 30 mg capsule Take 1 capsule by mouth once daily. - metoprolol succinate ER (TOPROL XL) 25 mg 24 hr tablet Take 1 tablet by mouth two times a day. - rosuvastatin (CRESTOR) 5 mg tablet Take 1 tablet by mouth daily at bedtime. - buPROPion XL (WELLBUTRIN XL) 300 mg 24 hr tablet Take 1 tablet by mouth once daily. - albuterol HFA (PROAIR HFA) 90 mcg/actuation inhaler Inhale 2 Puffs as instructed every 6 hours as needed. - meclizine (ANTIVERT) 25 mg tab Take 25 mg by mouth three times daily as needed. From [facility] er - clindamycin (CLEOCIN) 300 mg capsule Take 2 capsules by mouth one hour prior to dental cleaning/procedure - ascorbic acid (VITAMIN C ORAL) Take 1 tablet by mouth once daily. 1000mg - polyethylene glycol 3350 (MIRALAX ORAL) Take 1 Tablespoonful by mouth as needed. - acetaminophen (TYLENOL) 500 mg tablet Take 2 tablets by mouth every 8 hours as needed. - fluticasone (FLONASE) 50 mcg/actuation nasal spray Use 1 [place] in each nostril once daily. - vitamin B complex (B COMPLEX 1 ORAL) Take 1 tablet by mouth once daily. - cholecalciferol (VITAMIN D3) 1,000 unit tab tablet Take 1,000 Units by mouth once daily. Normal [facility] CNTHERAPYon 06-23-2025 CNTHERAPY OT/PT/Speech Visit (PTWS) CHERYL MARRERO ([id number]) 1945 F Date Time Provider Department 06/23/25 2:30 PM FIDEL LAMBERT PTWS Date Time Provider Department Center 06/23/2025 2:30 PM [id number], SEAN PTWS Handy Rueda Reason for Visit: Physical Therapy [503] Primary Visit Diagnosis:DDD (degenerative disc disease), cervical [M50.30] Allergies As of Date: 06/23/2025 Noted Allergy Reaction PHENERGAN (PROMETHAZINE HCL) 12/16/2009 1 - Mental Status Change 5 - Intolerance [id number] REDUCTASE INHIBIT*05/14/2014 14 - Other: See Comments Comments: Elevated liver enzymes in hospital, statins stopped. ADHESIVE 08/02/2011 2 - Rash BREO ELLIPTA (FLUTICASONE FUROATE*04/18/2021 14 - Other: See Comments Comments: Hoarseness/ Shortness of breath PENICILLINS 06/18/2005 14 - Other: See Comments Comments: Local reaction at site of injection ROXICODONE (OXYCODONE) 08/16/2021 5 - Intolerance Comments: Severe nausea and lightheadness SULFA (SULFONAMIDE ANTIBIOTICS) 06/18/2005 VANCOMYCIN 10/05/2021 14 - Other: See Comments Comments: redness Date Reviewed: 04/22/2025 Reviewed by: Bibi Scott MA - Fully Assessed Prescriptions as of 06/25/2025 - folic acid 1 mg tablet Take 1 tablet by mouth once daily. - lansoprazole (PREVACID) 30 mg capsule Take 1 capsule by mouth once daily. - metoprolol succinate ER (TOPROL XL) 25 mg 24 hr tablet Take 1 tablet by mouth two times a day. - rosuvastatin (CRESTOR) 5 mg tablet Take 1 tablet by mouth daily at bedtime. - buPROPion XL (WELLBUTRIN XL) 300 mg 24 hr tablet Take 1 tablet by mouth once daily. - albuterol HFA (PROAIR HFA) 90 mcg/actuation inhaler Inhale 2 Puffs as instructed every 6 hours as needed. - meclizine (ANTIVERT) 25 mg tab Take 25 mg by mouth three times daily as needed. From [facility] er - clindamycin (CLEOCIN) 300 mg capsule Take 2 capsules by mouth one hour prior to dental cleaning/procedure - ascorbic acid (VITAMIN C ORAL) Take 1 tablet by mouth once daily. 1000mg - polyethylene glycol 3350 (MIRALAX ORAL) Take 1 Tablespoonful by mouth as needed. - acetaminophen (TYLENOL) 500 mg tablet Take 2 tablets by mouth every 8 hours as needed. - fluticasone (FLONASE) 50 mcg/actuation nasal spray Use 1 [place] in each nostril once daily. - vitamin B complex (B COMPLEX 1 ORAL) Take 1 tablet by mouth once daily. - cholecalciferol (VITAMIN D3) 1,000 unit tab tablet Take 1,000 Units by mouth once daily. Normal [facility] CNTHERAPYon 06-16-2025 CNTHERAPY OT/PT/Speech Visit (PTWS) CHERYL [id number]) 1945 F Date Time Provider Department 06/16/25 2:30 PM FIDEL LAMBERT PTWS Date Time Provider Department Center 06/16/2025 2:30 PM [id number], SEAN PTWS Handy Rueda Reason for Visit: Physical Therapy [503] Primary Visit Diagnosis:DDD (degenerative disc disease), cervical [M50.30] Allergies As of Date: 06/16/2025 Noted Allergy Reaction PHENERGAN (PROMETHAZINE HCL) 12/16/2009 1 - Mental Status Change 5 - Intolerance [id number] REDUCTASE INHIBIT*05/14/2014 14 - Other: See Comments Comments: Elevated liver enzymes in hospital, statins stopped. ADHESIVE 08/02/2011 2 - Rash BREO ELLIPTA (FLUTICASONE FUROATE*04/18/2021 14 - Other: See Comments Comments: Hoarseness/ Shortness of breath PENICILLINS 06/18/2005 14 - Other: See Comments Comments: Local reaction at site of injection ROXICODONE (OXYCODONE) 08/16/2021 5 - Intolerance Comments: Severe nausea and lightheadness SULFA (SULFONAMIDE ANTIBIOTICS) 06/18/2005 VANCOMYCIN 10/05/2021 14 - Other: See Comments Comments: redness Date Reviewed: 04/22/2025 Reviewed by: Bibi Scott MA - Fully Assessed Prescriptions as of 06/17/2025 - folic acid 1 mg tablet Take 1 tablet by mouth once daily. - lansoprazole (PREVACID) 30 mg capsule Take 1 capsule by mouth once daily. - metoprolol succinate ER (TOPROL XL) 25 mg 24 hr tablet Take 1 tablet by mouth two times a day. - rosuvastatin (CRESTOR) 5 mg tablet Take 1 tablet by mouth daily at bedtime. - buPROPion XL (WELLBUTRIN XL) 300 mg 24 hr tablet Take 1 tablet by mouth once daily. - albuterol HFA (PROAIR HFA) 90 mcg/actuation inhaler Inhale 2 Puffs as instructed every 6 hours as needed. - meclizine (ANTIVERT) 25 mg tab Take 25 mg by mouth three times daily as needed. From [facility] er - clindamycin (CLEOCIN) 300 mg capsule Take 2 capsules by mouth one hour prior to dental cleaning/procedure - ascorbic acid (VITAMIN C ORAL) Take 1 tablet by mouth once daily. 1000mg - polyethylene glycol 3350 (MIRALAX ORAL) Take 1 Tablespoonful by mouth as needed. - acetaminophen (TYLENOL) 500 mg tablet Take 2 tablets by mouth every 8 hours as needed. - fluticasone (FLONASE) 50 mcg/actuation nasal spray Use 1 [place] in each nostril once daily. - vitamin B complex (B COMPLEX 1 ORAL) Take 1 tablet by mouth once daily. - cholecalciferol (VITAMIN D3) 1,000 unit tab tablet Take 1,000 Units by mouth once daily. Normal [facility] CNTHERAPYon 06-09-2025 CNTHERAPY OT/PT/Speech Visit (PTWS) CHERYL MARRERO ([id number]) 1945 F Date Time Provider Department 06/09/25 10:30 AM FIDEL LAMBERT PTWS Date Time Provider Department Center 06/09/2025 10:30 AM [id number], SEAN PTWS Handy Rueda Reason for Visit: Physical Therapy [503] Primary Visit Diagnosis:DDD (degenerative disc disease), cervical [M50.30] Allergies As of Date: 06/09/2025 Noted Allergy Reaction PHENERGAN (PROMETHAZINE HCL) 12/16/2009 1 - Mental Status Change 5 - Intolerance [id number] REDUCTASE INHIBIT*05/14/2014 14 - Other: See Comments Comments: Elevated liver enzymes in hospital, statins stopped. ADHESIVE 08/02/2011 2 - Rash BREO ELLIPTA (FLUTICASONE FUROATE*04/18/2021 14 - Other: See Comments Comments: Hoarseness/ Shortness of breath PENICILLINS 06/18/2005 14 - Other: See Comments Comments: Local reaction at site of injection ROXICODONE (OXYCODONE) 08/16/2021 5 - Intolerance Comments: Severe nausea and lightheadness SULFA (SULFONAMIDE ANTIBIOTICS) 06/18/2005 VANCOMYCIN 10/05/2021 14 - Other: See Comments Comments: redness Date Reviewed: 04/22/2025 Reviewed by: Bibi Scott MA - Fully Assessed Prescriptions as of 06/09/2025 - folic acid 1 mg tablet Take 1 tablet by mouth once daily. - lansoprazole (PREVACID) 30 mg capsule Take 1 capsule by mouth once daily. - metoprolol succinate ER (TOPROL XL) 25 mg 24 hr tablet Take 1 tablet by mouth two times a day. - rosuvastatin (CRESTOR) 5 mg tablet Take 1 tablet by mouth daily at bedtime. - buPROPion XL (WELLBUTRIN XL) 300 mg 24 hr tablet Take 1 tablet by mouth once daily. - albuterol HFA (PROAIR HFA) 90 mcg/actuation inhaler Inhale 2 Puffs as instructed every 6 hours as needed. - meclizine (ANTIVERT) 25 mg tab Take 25 mg by mouth three times daily as needed. From [facility] er - clindamycin (CLEOCIN) 300 mg capsule Take 2 capsules by mouth one hour prior to dental cleaning/procedure - ascorbic acid (VITAMIN C ORAL) Take 1 tablet by mouth once daily. 1000mg - polyethylene glycol 3350 (MIRALAX ORAL) Take 1 Tablespoonful by mouth as needed. - acetaminophen (TYLENOL) 500 mg tablet Take 2 tablets by mouth every 8 hours as needed. - fluticasone (FLONASE) 50 mcg/actuation nasal spray Use 1 [place] in each nostril once daily. - vitamin B complex (B COMPLEX 1 ORAL) Take 1 tablet by mouth once daily. - cholecalciferol (VITAMIN D3) 1,000 unit tab tablet Take 1,000 Units by mouth once daily. Normal [facility] [id number] 05-28-2025 [id number] O ID: [id number] Author: FIDEL LAMBERT PT Service: ? Author Type: Physical Therapist Type: [id number] Filed: 05/28/2025 14:28 Note Text: [facility] Physical Therapy Plan of Care Certification Patient Name: Cheryl Marrero : 1945 [facility] #: [id number] Date: 05/28/2025 To: Afia Schafer A* From Therapist: Fidel Lambert PT RE: Patient Certification/ Recertification Your review, approval and electronic signature are required in order to comply with Payor: MEDICARE / Plan: MEDICARE A AND B / Product Type: Medicare / regulations. The identified Physical Therapy PLAN OF CARE for the patient is as follows: M50.30 DDD (degenerative disc disease), cervical (primary encounter diagnosis) PLAN OF CARE: Assessment: Cheryl Marrero presents with chief complaint of B shoulder pain that interferes with recreational activities, lifting, sleeping, reaching behind back, reaching overhead, use hand with arm at shoulder level, cleaning, cooking, dressing, grooming . The patient presents with impairments in ADL's, overall function, range of motion, strength, symptom management, and tissue tenderness. PROMIS? (Patient-Reported Outcomes Measurement Information System) scores were reviewed and identified as a rehabilitation concern. Prognosis for therapy is Good due to: current objective clinical presentation, good overall health status, acuteness of condition, positive past response to therapy, good support system/ coping skills . The patient will benefit from skilled therapy services to meet the goals established for this plan of care as noted below. Goals for Episode of Care: established 05/28/25 [place] in home exercise program. Patient will decrease pain rating by 2 points to meet minimal clinical important difference for numeric pain rating scale. Patient will increase active ROM of B shoulders to WNL to allow pt to to improve performance of ADLs. Patient will demonstrate increase in B shoulder strength to 4+/5 during manual muscle testing in order to improve function for basic self-care tasks, home management tasks, and light functional tasks. Perform reaching and grooming with decreased report of symptoms/pain in 6-8 weeks. Perform sleeping without pain. Time Frame for Goals and Treatment : 07/28/25 Planned Interventions, Frequency, and Duration: Current Frequency: 1x/week Duration: 8 weeks Total Number of Visits Planned: 8 Planned Treatment Interventions: Therapeutic exercise (42493), Neuromuscular re-education (57497), Manual therapy (43514), Therapeutic activities (43089), Self-fci management (85243), Patient/Family/Caregi christine Education, Body Mechanics Training PLAN FOR NEXT VISIT: Progress shoulder strengthening if tolerated, may add pendulums if needed for pain control Patient demonstrates good understanding of plan of care and treatment. The above goals and plan of care were discussed and agreed upon by patient/family. For further details regarding this patient refer to the Physical Therapy electronically documented visit dated 05/28/2025. Provider Attestation I have reviewed the treatment plan for Cheryl Marrero, [facility]# [id number] for the period of 05/28/25 -- 07/28/25, established on 05/28/2025. Signature certifies the need for therapy services. Normal [facility] CNTHERAPYon 05-28-2025 CNTHERAPY OT/PT/Speech Visit (PTWS) CHERYL MARRERO ([id number]) 1945 F Date Time Provider Department 05/28/25 1:00 PM FIDEL LAMBERT PTWS Date Time Provider Department Center 05/28/2025 1:00 PM [id number], SEAN PTWS Handy Rueda Reason for Visit: PT Eval [747] Primary Visit Diagnosis:DDD (degenerative disc disease), cervical [M50.30] Allergies As of Date: 05/28/2025 Noted Allergy Reaction PHENERGAN (PROMETHAZINE HCL) 12/16/2009 1 - Mental Status Change 5 - Intolerance [id number]-FZE-WDL REDUCTASE INHIBIT*05/14/2014 14 - Other: See Comments Comments: Elevated liver enzymes in hospital, statins stopped. ADHESIVE 08/02/2011 2 - Rash BREO ELLIPTA (FLUTICASONE FUROATE*04/18/2021 14 - Other: See Comments Comments: Hoarseness/ Shortness of breath PENICILLINS 06/18/2005 14 - Other: See Comments Comments: Local reaction at site of injection ROXICODONE (OXYCODONE) 08/16/2021 5 - Intolerance Comments: Severe nausea and lightheadness SULFA (SULFONAMIDE ANTIBIOTICS) 06/18/2005 VANCOMYCIN 10/05/2021 14 - Other: See Comments Comments: redness Date Reviewed: 04/22/2025 Reviewed by: Bibi Scott MA - Fully Assessed Prescriptions as of 05/28/2025 - folic acid 1 mg tablet Take 1 tablet by mouth once daily. - lansoprazole (PREVACID) 30 mg capsule Take 1 capsule by mouth once daily. - metoprolol succinate ER (TOPROL XL) 25 mg 24 hr tablet Take 1 tablet by mouth two times a day. - rosuvastatin (CRESTOR) 5 mg tablet Take 1 tablet by mouth daily at bedtime. - buPROPion XL (WELLBUTRIN XL) 300 mg 24 hr tablet Take 1 tablet by mouth once daily. - albuterol HFA (PROAIR HFA) 90 mcg/actuation inhaler Inhale 2 Puffs as instructed every 6 hours as needed. - meclizine (ANTIVERT) 25 mg tab Take 25 mg by mouth three times daily as needed. From [facility] er - clindamycin (CLEOCIN) 300 mg capsule Take 2 capsules by mouth one hour prior to dental cleaning/procedure - ascorbic acid (VITAMIN C ORAL) Take 1 tablet by mouth once daily. 1000mg - polyethylene glycol 3350 (MIRALAX ORAL) Take 1 Tablespoonful by mouth as needed. - acetaminophen (TYLENOL) 500 mg tablet Take 2 tablets by mouth every 8 hours as needed. - fluticasone (FLONASE) 50 mcg/actuation nasal spray Use 1 [place] in each nostril once daily. - vitamin B complex (B COMPLEX 1 ORAL) Take 1 tablet by mouth once daily. - cholecalciferol (VITAMIN D3) 1,000 unit tab tablet Take 1,000 Units by mouth once daily. Normal [facility] SCREENING W TOMOon 05-28 [facility] SCREENING W ANURADHA * * *Final Report* * * DATE OF EXAM: May 28 2025 2:07PM [facility] 0582 - [facility] SCREENING W ANURADHA / PROCEDURE REASON: Encounter for screening mammogram for malignant neoplasm of breast * * * * Physician Interpretation * * * * RESULT: [place] [address] [place] [id number] #[id number] - [facility] SCREENING W ANURADHA HISTORY: 80 year-old patient presents for screening. Patient is asymptomatic in both breasts. Patient states no personal history of breast cancer. COMPARISON STUDIES: The present examination has been compared to prior imaging studies dated 10/03/2022 (mammogram), 04/17/2023 (mammogram), 06/17/2024 (mammogram), 07/07/2024 (mammogram) and 02/10/2025 (mammogram). MAMMOGRAM TECHNIQUE: The study was acquired using full field digital technology and interpreted from soft copy. Digital Breast Tomosynthesis (DBT) images were obtained and used to assist in the interpretation of this examination. MAMMOGRAM FINDINGS: The breasts are heterogeneously dense, which may obscure small masses. There are benign post-operative changes in the left breast. A biopsy clip is noted in the right breast. There are benign appearing calcifications in bilateral breasts. No significant interval change. No suspicious masses, calcifications or other abnormalities are seen in either breast. IMPRESSION: There is no mammographic evidence of malignancy. Routine screening mammogram is recommended. Annual mammogram will be due in 1 year. BI-RADS Category 2: Benign RISK: Based on the Tyrer-Cuzick (TC) risk assessment model, this patient has a 2.0% lifetime risk of developing breast cancer, meaning they are at average risk for developing breast cancer. However, this is only an estimate based on available history provided on the patient's questionnaire. We encourage all patients to talk with their providers about these results, further recommendations for managing breast health, and appropriate supplemental screening options if the patient has dense breast tissue. Interpreting Radiologist: Kylah Núñez M.D. Resident/Fellow: Cheryl Pavon MD Electronically signed on: 06/01/2025 [employer]: PAT Transcribe Date/Time: May 28 2025 1:53P Dictated by: CHERYL PAVON MD This examination was interpreted and the report reviewed and electronically signed by: KYLAH NÚÑEZ MD on Jun 01 2025 7:34AM EST [id number] Normal [facility] XR CERVICAL 4V AP/LAT/OBLon 05-13-2025 XR CERVICAL 4V AP/LAT/OBL * * *Final Report* * * DATE OF EXAM: May 13 2025 3:13PM [facility] [id number] - XR CERVICAL 4V AP/LAT/OBL / PROCEDURE REASON: Cervical radiculopathy * * * * Physician Interpretation * * * * EXAMINATION: XR CERVICAL 4V AP/LAT/OBL CLINICAL HISTORY: Cervical radiculopathy Technique: XR CERVICAL 4V AP/LAT/OBL -- NOT APPLICABLE with 4 views on 4 images Comparison: None RESULT: Counting reference: Craniocervical junction. Anatomic Variants: None. Kyphosis of the upper thoracic spine. Minimal anterolisthesis of C6 on C7. No acute fracture or facet subluxation. Multilevel intervertebral disc space narrowing with vertebral body osteophytes. Multilevel facet joint degenerative disease. Left intervertebral neuroforaminal narrowing at C3-4. Right intervertebral neuroforaminal narrowing at C3-4 and C4-5. IMPRESSION: No acute fracture. Degenerative disease of the cervical spine. [employer]: PSCB Transcribe Date/Time: May 20 2025 1:35P Dictated by : BUDDY ELISE MD This examination was interpreted and the report reviewed and electronically signed by: BUDDY ELISE MD on May 20 2025 1:37PM EST [id number] Normal [facility] CNOVon 04-22-2025 [facility] CHERYL MARRERO Evon ([id number]) 1945 F Date Time Provider Department 04/22/25 8:20 AM [facility] your visit today, we recorded the following information about you: Pulse Blood pressure Weight 76/minute 138/68 72.6 kg Afia Schafer, WATER MECHANIC.ROOF BOLTER OPERATOR 04/22/2025 8:48 AM Signed This is a 79 year old female who presents today with: Patient presents with: 6 Month Exam HISTORY OF PRESENT ILLNESS: Cheryl Marrero is a 79 year old female. Patient presents with: 6 Month Exam The patient is an 79-year-old female with hyperlipidemia, presenting for evaluation of six weeks of arm and wrist pain. Right Arm Pain: - Aching pain in the right arm, x6 weeks. - Pain is severe enough to limit movement, including difficulty pulling a blanket off. - Cheryl denies known trauma or injury. - Sleeps on shoulders; initially thought pain was due to sleeping position. - Occasionally experiences pain in the wrist, especially with pushing movements. - Cheryl is concerned about potential muscle loss. Hyperlipidemia: - Currently taking Crestor. Anxiety: - Recent increase in anxiety medication dosage. GERD: - Managed with Prevacid. Headaches: - Experiences pressure headaches and migraines, sometimes lasting 2-4 days. - Headaches are frontal in location. - No headaches this week. Menopausal Symptoms: - Continues to experience hot flashes. Shingles: - History of shingles earlier this year. Vertigo: - Cheryl had one episode of vertigo recently. PAST MEDICAL HISTORY: PAST MEDICAL HISTORY Diagnosis Date Adjustment disorder with depressed mood Anxiety state, unspecified Arthritis Asthma (HCC) Coronary artery disease Diverticulosis of colon (without mention of hemorrhage) Hemorrhage of gastrointestinal tract, unspecified Iron deficiency anemia 06/29/2021 Localized osteoarthrosis not specified whether primary or secondary, lower leg Lung nodules Myalgia Obstructive sleep apnea Other and unspecified hyperlipidemia Seasonal allergies Shingles 01/2017 Urge urinary incontinence PAST SURGICAL HISTORY Procedure Laterality Date ABDOMINAL SURGERY HX BREAST CYST PUNCTURE/BC BX OF BREAST; INCISIONAL Left 08/04/2024 CHOLECYSTECTOMY 04/09/2000 lap choley COLONOSCOPY - DIAGNOSTIC 11/01/2000 COLONOSCOPY FLX DX W/COLLJ SPEC WHEN PFRMD 09/09/2008 Colonoscopy COLONOSCOPY FLX DX W/COLLJ SPEC WHEN PFRMD 07/01/2014 Colonoscopy COLONOSCOPY FLX DX W/COLLJ SPEC WHEN PFRMD 11/05/2019 Colonoscopy COLONOSCOPY FLX DX W/COLLJ SPEC WHEN PFRMD 06/13/2021 ECHOCARDIOGRAM 04/24/2021 echo: LV small, LV SF WNL, EF 65%, grade 1 LVDD. All wall motion score normal. RV size and RV SF WNL, RVSP 38 mmHg consistent with mild pulmonary hypertension. LA and RA normal in size, inferior vena cava normal. MV: 0-1+ MVR, TV normal, 0-1+ TR, AV normal, PV not seen, 0-1+ FL. Mid a sending aorta 3.2 cm. Echocardiogram pulmonary arteries not interrogated, no pericardial effusion ESOPHAGOGASTRODUODENO SCOPY TRANSORAL DIAGNOSTIC 11/05/2019 EGD ESOPHAGOGASTRODUODENO SCOPY TRANSORAL DIAGNOSTIC 06/13/2021 Dr.Guttman TAVERAS BREAST LESION Left 07/07/2024 US guided core bx Lt breast EYE SURGERY HX HEMORRHOIDECTOMY INTERNAL RUBBER BAND LIGATIONS 11/05/2019 PICC LINE INSERT/CONSULT 08/24/2021 SKIN BIOPSY HX TONSILLECTOMY HX TONSILLECTOMY PRIMARY/SECONDARY TOTAL KNEE REPLACEMENT ALLERGIES Phenergan [Promethazine Hcl], Rkeyozi-Zbn-Uxi Reductase Inhibitors, Adhesive, Breo Ellipta [Fluticasone Furoate-Vilanterol], Penicillins, Roxicodone [Oxycodone], Sulfa (Sulfonamide Antibiotics), and Vancomycin MEDICATIONS Current Outpatient Medications Medication Sig buPROPion XL (WELLBUTRIN XL) 300 mg 24 hr tablet Take 1 tablet by mouth once daily. folic acid 1 mg tablet Take 1 tablet by mouth once daily. lansoprazole (PREVACID) 30 mg capsule Take 1 capsule by mouth once daily. metoprolol succinate ER (TOPROL XL) 25 mg 24 hr tablet Take 1 tablet by mouth two times a day. rosuvastatin (CRESTOR) 5 mg tablet Take 1 tablet by mouth daily at bedtime. albuterol HFA (PROAIR HFA) 90 mcg/actuation inhaler Inhale 2 Puffs as instructed every 6 hours as needed. meclizine (ANTIVERT) 25 mg tab Take 25 mg by mouth three times daily as needed. From [facility] er ascorbic acid (VITAMIN C ORAL) Take 1 tablet by mouth once daily. 1000mg polyethylene glycol 3350 (MIRALAX ORAL) Take 1 Tablespoonful by mouth as needed. acetaminophen (TYLENOL) 500 mg tablet Take 2 tablets by mouth every 8 hours as needed. fluticasone (FLONASE) 50 mcg/actuation nasal spray Use 1 [place] in each nostril once daily. vitamin B complex (B COMPLEX 1 ORAL) Take 1 tablet by mouth once daily. cholecalciferol (VITAMIN D3) 1,000 unit tab tablet Take 1,000 Units by mouth once daily. clindamycin (CLEOCIN) 300 mg capsule (more content not included)... Normal [facility] Comprehensive metabolic 2000 panelon 04-22-2025 Albumin [Mass/Vol] 4.2 g/dL Normal 3.9-4.9 [facility] Comment on above: Order Comment: Speci men Type: BLOOD SPECIMENOrdering Facility: [facility] Address: [address] [place] [address] Performed By: #### 2 4323-8, 3016-3 ####[facility] LABCLIA [id number] [address] [address] [place] ALP [Catalytic activity/Vol] 99 U/L Normal 34-123 [facility] Comment on above: Order Comment: Speci men Type: BLOOD SPECIMENOrdering Facility: [facility] Address: [address] [place], [place] [address] Performed By: #### 2 4323-8, 6-3 ####[facility] LABCLIA [id number] [place] [id number] [place] ALT [Catalytic activity/Vol] 14 U/L Normal 7-38 [facility] Comment on above: Order Comment: Speci men Type: BLOOD SPECIMENOrdering Facility: [facility] Address: [address] [place], [place] [address] Performed By: #### 2 4323-8, 6-3 ####[facility] LABCLIA [id number] [place] [id number] [place] Anion gap [Moles/Vol] 11 mmol/L Normal 8-15 [facility] Comment on above: Order Comment: Speci men Type: BLOOD SPECIMENOrdering Facility: [facility] Address: [address] [place], [place] [address] Performed By: #### 2 4323-8, 6-3 ####[facility] LABIA [id number] [place] [id number] [place] AST [Catalytic activity/Vol] 16 U/L Normal 13-35 [facility] Comment on above: Order Comment: Speci men Type: BLOOD SPECIMENOrdering Facility: [facility] Address: [address] [place], [place] [address] Performed By: #### 2 4323-8, 6-3 ####[facility] LABCLIA [id number] [address] [address] [place] Bilirubin [Mass/Vol] 0.3 mg/dL Normal 0.2-1.3 [facility] Comment on above: Order Comment: Speci men Type: BLOOD SPECIMENOrdering Facility: [facility] Address: [address] [place], [place] [address] Performed By: #### 2 4323-8, 3015-3 ####[facility] LABCLIA [id number] [address] [address] [place] Calcium [Mass/Vol] 9.7 mg/dL Normal 8.5-10.2 [facility] Comment on above: Order Comment: Speci men Type: BLOOD SPECIMENOrdering Facility: [facility] Address: [address] [place] [address] Performed By: #### 2 4323-8, 3 ####[facility] LABCLIA [id number] [place] [id number] [place] Chloride [Moles/Vol] 105 mmol/L Normal 98-107 [facility] Comment on above: Order Comment: Speci men Type: BLOOD SPECIMENOrdering Facility: [facility] Address: [address] [place], [place] [address] Performed By: #### 2 4323-8, 3 ####[facility] LABCLIA [id number] [address] [address] [place] CO2 [Moles/Vol] 26 mmol/L Normal 22-30 [facility] Comment on above: Order Comment: Speci men Type: BLOOD SPECIMENOrdering Facility: [facility] Address: [address] [place], [place] [address] Performed By: #### 2 4323-8, 6-3 ####[facility] LABCLIA [id number] [address] [address] [place] Creatinine [Mass/Vol] 1.13 mg/dL High 0.58-0.96 [facility] Comment on above: Order Comment: Ebony de la torre Type: BLOOD SPECIMENOrdering Facility: [facility] Address: [address] [place] [address] Performed By: #### 2 4323-8, 3016-3 ####[facility] LABCLIA [id number] [place] [id number] [place] eGFRcr SerPlBld CKD-EPI 2020 49 mL/min/1.73m??? Low >=60 [facility] Comment on above: Order Comment: Ebony de la torre Type: BLOOD SPECIMENOrdering Facility: [facility] Address: [address] [place] [address] Result Comment: Ruth mated Glomerular Filtration Rate (eGFR) is calculated using the 2020 CKD-EPI creatinine equation. This equation utilizes serum creatinine, sex, and age as parameters. The creatinine assay has traceable calibration to isotope dilution-mass spectrometry. Refer to KDIGO guidelines for clinical interpretation. In patients with unstable renal function, e.g. those with acute kidney injury, the eGFR may not accurately reflect actual GFR. Performed By: #### 2 4323-8, 3015-3 ####[facility] LABCLIA [id number] [place] [address] [place] Glucose [Mass/Vol] 101 mg/dL High 74-99 [facility] Comment on above: Order Comment: Ebony de la torre Type: BLOOD SPECIMENOrdering Facility: [facility] Address: [address] [place] [address] Result Comment: The [place] Diabetes Association (ADA) provides guidance for cutoff values for fasting glucose and random glucose. The ADA defines fasting as no caloric intake for at least 8 hours. Fasting plasma glucose results between 100 to 125 mg/dL indicate increased risk for diabetes (prediabetes). Fasting plasma glucose results greater than or equal to 126 mg/dL meet the criteria for diagnosis of diabetes. In the absence of unequivocal hyperglycemia, results should be confirmed by repeat testing. In a patient with classic symptoms of hyperglycemia or hyperglycemic crisis, random plasma glucose results greater than or equal to 200 mg/dL meet the criteria for diagnosis of diabetes. Reference: Standards of Medical Care in Diabetes 2016, [place] Diabetes Association. Diabetes Care. 2016.39(Suppl 1). Performed By: #### 2 4323-8, 6-3 ####[facility] LABCLIA [id number] [address] [address] [place] Potassium [Moles/Vol] 4.6 mmol/L Normal 3.7-5.1 [facility] Comment on above: Order Comment: Speci men Type: BLOOD SPECIMENOrdering Facility: [facility] Address: [address] [place] [id number] Performed By: #### 2 4323-8, 3 ####[facility] LABCLIA [id number] [address] [address] [place] Protein [Mass/Vol] 6.9 g/dL Normal 6.3-8.0 [facility] Comment on above: Order Comment: Speci men Type: BLOOD SPECIMENOrdering Facility: [facility] Address: [address] [place] [address] Performed By: #### 2 4323-8, 3 ####[facility] LABIA [id number] [address] [address] [place] Sodium [Moles/Vol] 142 mmol/L Normal 136-144 [facility] Comment on above: Order Comment: Speci men Type: BLOOD SPECIMENOrdering Facility: [facility] Address: [address] [place] [address] Performed By: #### 2 4323-8, 3015-3 ####[facility] LABCLIA [id number] [address] [address] [place] Urea nitrogen [Mass/Vol] 18 mg/dL Normal 7-21 [facility] Comment on above: Order Comment: Speci men Type: BLOOD SPECIMENOrdering Facility: [facility] Address: [address] [place] [address] Performed By: #### 2 4323-8, 6-3 ####[facility] LABIA [id number] [address] [place] HbA1c (Bld)on 04-22-2025 Average glucose Estimated from glycated hemoglobin (Bld) [Mass/Vol] 126 mg/dL Normal [facility] Comment on above: Order Comment: Speci men Type: BLOOD SPECIMENOrdering Facility: [facility] Address: [address] [place] [address] Result Comment: eAG: (Estimated average glucose) is a calculated value from HgbA1c and is veterans employment representative of the average blood glucose level in the last 2-3 month period. Performed By: #### 5 5454-3 ####[facility] [id number] [address] STATES OF [facility] HbA1c (Bld) [Mass fraction] 6.0 % High 4.3-5.6 [facility] Comment on above: Order Comment: Ebony de la torre Type: BLOOD SPECIMENOrdering Facility: [facility] Address: [address] [place] [address] Result Comment: Amer [place] Diabetes Association guidelines indicate that patients with HgbA1c in the range 5.7-6.4% are at increased risk for development of diabetes, and intervention by lifestyle modification may be beneficial. HgbA1c greater or equal to 6.5% is considered diagnostic of diabetes. Performed By: #### 5 5454-3 ####[facility] LABIA [id number] [address] [place] TSH SerPl-aCncon 04-22-2025 TSH Qn 2.170 m[IU]/L Normal 0.270-4.200 [facility] Comment on above: Order Comment: Ebony de la torre Type: BLOOD SPECIMENOrdering Facility: [facility] Address: [address] [place] [address] Performed By: #### 2 4323-8, 3015-3 ####[facility] LABCLIA [id number] [place] [id number] [place] DBT Breast - left diagnostic for implanton 02-10-2025 IMPRESSION: There is no mammographic evidence of malignancy. Return to annual screening mammogram is recommended. Annual mammogram will be due in 1 year. BI-RADS Category 2: Benign RISK: Based on the Tyrer-Cuzick (TC) risk assessment model, this patient has a 2.0% lifetime risk of developing breast cancer, meaning they are at average risk for developing breast cancer. However, this is only an estimate based on available history provided on the patient's questionnaire. We encourage all patients to talk with their providers about these results, further recommendations for managing breast health, and appropriate supplemental screening options if the patient has dense breast tissue. Interpreting Radiologist: Luke Mcpherson M.D. Electronically signed on: 02/10/2025 [employer]: PAT Transcribe Date/Time: Feb 10 2025 8:52A Dictated by: LUKE MCPHERSON MD This examination was interpreted and the report reviewed and electronically signed by: LUKE MCPHERSON MD on Feb 10 2025 9:25AM [facility] DIVISION OF RADIOLOGY * * *Final Report* * * DATE OF EXAM: Feb 10 2025 9:14AM [facility] 0628 - BLADIMIR ADRIANO LING LT / PROCEDURE REASON: multiple diagnoses * * * * Physician Interpretation * * * * RESULT: [place] [id number] #[id number] - BLADIMIR ADRIANO Rooney ANURADHA LT HISTORY: 79 year-old patient presents for diagnostic evaluation of the finding(s) described on prior mammogram in the left breast. Patient states no personal history of breast cancer. COMPARISON STUDIES: The present examination has been compared to prior imaging studies dated 10/03/2022 (mammogram), 04/17/2023 (mammogram), 06/17/2024 (mammogram), 06/17/2024 (ultrasound) and 07/07/2024 (mammogram). MAMMOGRAM TECHNIQUE: The study was acquired using full field digital technology and interpreted from soft copy. Digital Breast Tomosynthesis (DBT) images were obtained and used to assist in the interpretation of this examination. MAMMOGRAM FINDINGS: The breast is heterogeneously dense, which may obscure small masses. There are benign-appearing calcifications with associated post-operative changes in the left breast. No suspicious masses, calcifications or other abnormalities are seen in the left breast. DIVISION OF RADIOLOGY Provider, Ana Ayon - 02/10/2025 * * *Final Report* * * DATE OF EXAM: Feb 10 2025 9:14AM [facility] 0628 - BLADIMIR DIAG W ANURADHA LT / PROCEDURE REASON: multiple diagnoses * * * * Physician Interpretation * * * * RESULT: [facility] [address] [place] [address] #[id number] - BLADIMIR DIAG W ANURADHA LT HISTORY: 79 year-old patient presents for diagnostic evaluation of the finding(s) described on prior mammogram in the left breast. Patient states no personal history of breast cancer. COMPARISON STUDIES: The present examination has been compared to prior imaging studies dated 10/03/2022 (mammogram), 04/17/2023 (mammogram), 06/17/2024 (mammogram), 06/17/2024 (ultrasound) and 07/07/2024 (mammogram). MAMMOGRAM TECHNIQUE: The study was acquired using full field digital technology and interpreted from soft copy. Digital Breast Tomosynthesis (DBT) images were obtained and used to assist in the interpretation of this examination. MAMMOGRAM FINDINGS: The breast is heterogeneously dense, which may obscure small masses. There are benign-appearing calcifications with associated post-operative changes in the left breast. No suspicious masses, calcifications or other abnormalities are seen in the left breast. IMPRESSION IMPRESSION: There is no mammographic evidence of malignancy. Return to annual screening mammogram is recommended. Annual mammogram will be due in 1 year. BI-RADS Category 2: Benign RISK: Based on the Tyrer-Cuzick (TC) risk assessment model, this patient has a 2.0% lifetime risk of developing breast cancer, meaning they are at average risk for developing breast cancer. However, this is only an estimate based on available history provided on the patient's questionnaire. We encourage all patients to talk with their providers about these results, further recommendations for managing breast health, and appropriate supplemental screening options if the patient has dense breast tissue. Interpreting Radiologist: Luke Mcpherson M.D. Electronically signed on: 02/10/2025 [employer]: PAT Transcrisreekatnh Date/Time: Feb 10 2025 8:52A Dictated by: LUKE MCPHERSON MD This examination was interpreted and the report reviewed and electronically signed by: LUKE MCPHERSON MD on Feb 10 2025 9:25AM EST [facility] Radiology Study observation (narrative) [facility] DBT Breast - left diagnostic for implantOrdered By: [facility] Provider on 02-10-2025 [facility] BLADIMIR DIAG W ANURADHA LTon 025 BLADIMIR DIAG W ANURADHA LT * * *Final Report* * * DATE OF EXAM: Feb 10 2025 9:14AM [facility] 0628 - BLADIMIR DIAG W ANURADHA LT / PROCEDURE REASON: multiple diagnoses * * * * Physician Interpretation * * * * RESULT: [place] [address] #[id number] - BLADIMIR DIAG W ANURADHA LT HISTORY: 79 year-old patient presents for diagnostic evaluation of the finding(s) described on prior mammogram in the left breast. Patient states no personal history of breast cancer. COMPARISON STUDIES: The present examination has been compared to prior imaging studies dated 10/03/2022 (mammogram), 04/17/2023 (mammogram), 06/17/2024 (mammogram), 06/17/2024 (ultrasound) and 07/07/2024 (mammogram). MAMMOGRAM TECHNIQUE: The study was acquired using full field digital technology and interpreted from soft copy. Digital Breast Tomosynthesis (DBT) images were obtained and used to assist in the interpretation of this examination. MAMMOGRAM FINDINGS: The breast is heterogeneously dense, which may obscure small masses. There are benign-appearing calcifications with associated post-operative changes in the left breast. No suspicious masses, calcifications or other abnormalities are seen in the left breast. IMPRESSION: There is no mammographic evidence of malignancy. Return to annual screening mammogram is recommended. Annual mammogram will be due in 1 year. BI-RADS Category 2: Benign RISK: Based on the Tyrer-Cuzick (TC) risk assessment model, this patient has a 2.0% lifetime risk of developing breast cancer, meaning they are at average risk for developing breast cancer. However, this is only an estimate based on available history provided on the patient's questionnaire. We encourage all patients to talk with their providers about these results, further recommendations for managing breast health, and appropriate supplemental screening options if the patient has dense breast tissue. Interpreting Radiologist: Luke Mcpherson M.D. Electronically signed on: 02/10/2025 [employer]: PAT Transcribe Date/Time: Feb 10 2025 8:52A Dictated by: LUKE MCPHERSON MD This examination was interpreted and the report reviewed and electronically signed by: LUKE MCPHERSON MD on Feb 10 2025 9:25AM EST [id number] [facility] 02-05-20[facility] CHERYL MARRERO ([id number]) 1945 F Date Time Provider Department 02/05/25 12:40 PM [facility] During your visit today, we recorded the following information about you: Pulse Blood pressure Weight 79/minute 132/82 73.5 kg Afia Schafer APRN.CNP 02/05/2025 1:30 PM Signed This is a 79 year old female who presents today with: No chief complaint on file. HISTORY OF PRESENT ILLNESS: Cheryl Marrero is a 79 year old female. No chief complaint on file. Cheryl Marrero is an 79-year-old female with a history of depression, presenting for follow-up after a recent increase in Wellbutrin dosage, with additional complaints of insomnia, tremors, and back pain. Depression: - Recent increase in Wellbutrin dosage from 150 mg to 300 mg daily. - Cheryl reports increased tearfulness and stress. - Feels like a failure as a mom due to concerns about her homeless son. - Denies palpitations. - No changes in hearing or vision. - No significant chest pain or cough. - No significant edema in extremities. Insomnia: - Difficulty falling asleep until 01:00-02:00. - Frequent nocturia disrupts sleep; unable to fall back asleep. - Describes herself as a worrier by nature. - Takes 2-3 naps daily; gets at least 7 hours of rest, though fragmented. Tremors: - Reports generalized tremors, denies nervous energy or heart racing. Back Pain: - Chronic back pain, managed with chiropractic visits every 2 weeks. - Previous back injection provided no relief. - Taking methocarbamol, unclear if it helps. Knee Pain: - Persistent knee pain since surgery in 2020. - History of infection requiring spacer and antibiotics. - Denies desire for further surgery. Bowel and Bladder Changes: - Variable bowel movements; recent increase in diarrhea. - Frequent urination. PAST MEDICAL HISTORY: PAST MEDICAL HISTORY Diagnosis Date Adjustment disorder with depressed mood Anxiety state, unspecified Arthritis Asthma (HCC) Coronary artery disease Diverticulosis of colon (without mention of hemorrhage) Hemorrhage of gastrointestinal tract, unspecified Iron deficiency anemia 06/29/2021 Localized osteoarthrosis not specified whether primary or secondary, lower leg Lung nodules Myalgia Obstructive sleep apnea Other and unspecified hyperlipidemia Seasonal allergies Shingles 01/2017 Urge urinary incontinence PAST SURGICAL HISTORY Procedure Laterality Date ABDOMINAL SURGERY HX BREAST CYST PUNCTURE/BC BX OF BREAST; INCISIONAL Left 08/04/2024 CHOLECYSTECTOMY 04/09/2000 lap choley COLONOSCOPY - DIAGNOSTIC 11/01/2000 COLONOSCOPY FLX DX W/COLLJ SPEC WHEN PFRMD 09/09/2008 Colonoscopy COLONOSCOPY FLX DX W/COLLJ SPEC WHEN PFRMD 07/01/2014 Colonoscopy COLONOSCOPY FLX DX W/COLLJ SPEC WHEN PFRMD 11/05/2019 Colonoscopy COLONOSCOPY FLX DX W/COLLJ SPEC WHEN PFRMD 06/13/2021 ECHOCARDIOGRAM 04/24/2021 echo: LV small, LV SF WNL, EF 65%, grade 1 LVDD. All wall motion score normal. RV size and RV SF WNL, RVSP 38 mmHg consistent with mild pulmonary hypertension. LA and RA normal in size, inferior vena cava normal. MV: 0-1+ MVR, TV normal, 0-1+ TR, AV normal, PV not seen, 0-1+ FL. Mid a sending aorta 3.2 cm. Echocardiogram pulmonary arteries not interrogated, no pericardial effusion ESOPHAGOGASTRODUODENO SCOPY TRANSORAL DIAGNOSTIC 11/05/2019 EGD ESOPHAGOGASTRODUODENO SCOPY TRANSORAL DIAGNOSTIC 06/13/2021 Dr.Guttman TAVERAS BREAST LESION Left 07/07/2024 US guided core bx Lt breast EYE SURGERY HX HEMORRHOIDECTOMY INTERNAL RUBBER BAND LIGATIONS 11/05/2019 PICC LINE INSERT/CONSULT 08/24/2021 SKIN BIOPSY HX TONSILLECTOMY HX TONSILLECTOMY PRIMARY/SECONDARY TOTAL KNEE REPLACEMENT ALLERGIES Phenergan [Promethazine Hcl], Oqcmxni-Umy-Gmw Reductase Inhibitors, Adhesive, Breo Ellipta [Fluticasone Furoate-Vilanterol], Penicillins, Roxicodone [Oxycodone], Sulfa (Sulfonamide Antibiotics), and Vancomycin MEDICATIONS Current Outpatient Medications Medication Sig buPROPion XL (WELLBUTRIN XL) 300 mg 24 hr tablet Take 1 tablet by mouth once daily. folic acid 1 mg tablet Take 1 tablet by mouth once daily. lansoprazole (PREVACID) 30 mg capsule Take 1 capsule by mouth once daily. metoprolol succinate ER (TOPROL XL) 25 mg 24 hr tablet Take 1 tablet by mouth two times a day. rosuvastatin (CRESTOR) 5 mg tablet Take 1 tablet by mouth daily at bedtime. albuterol HFA (PROAIR HFA) 90 mcg/actuation inhaler Inhale 2 Puffs as instructed every 6 hours as needed. meclizine (ANTIVERT) 25 mg tab Take 25 mg by mouth three times daily as needed. From [facility] clindamycin (CLEOCIN) 300 mg capsule Take 2 capsules by mouth one hour prior to dental cleaning/procedure ascorbic acid (VITAMIN C ORAL) Take 1 tablet by mouth once daily. 1000mg polyethylene glycol 3350 (MIRALAX ORAL) Take (more content not included)... [facility] CNOVon 12-08-2024 CNOV Office Visit ([facility] ) CHERYL MARRERO ([id number]) 1945 F Date Time Provider Department 12/08/24 3:40 PM DOMINGA ANN During your visit today, we recorded the following information about you: Pulse Respiration Blood pressure 76/minute 16/minute 142/80 Dominga Ann APRN.ROOF BOLTER OPERATOR 12/08/2024 4:33 PM Signed Start taking valacyclovir: 1 tablet by mouth twice daily for 7 days. Pick it up at [facility]. Begin gabapentin 100 mg up to 3 times a day as needed for nerve pain; use it for up to 30 days. If you find the pain is not well controlled or you feel overly drowsy, send a message so we can adjust the dose. Monitor the red rash on your elbow and any new patches. If you notice additional rash or worsening of your current rash, notify us promptly. There is no requirement to take these medications with food unless you experience nausea. Avoid sharing personal items like bath towels with others while you are being treated. Follow these instructions closely and feel free to contact us if you have any concerns or if your symptoms change. Dominga Ann APRN.ROOF BOLTER OPERATOR 12/08/2024 5:49 PM Addendum This is a 79 year old female who presents today with: Cheryl is an 79-year-old female presenting with left arm pain, rash on the right elbow, and diarrhea. HISTORY OF PRESENT ILLNESS: Left Arm Pain: - Intermittent pain in the right arm x1 week, severe enough to cause sleep disturbances for the past two nights. - Pain began in the elbow and radiates to the palm, lateral aspect of the arm, and fingers, shoulder, lateral aspect of chest wall. - Described as both sharp and dull, with no specific aggravating or alleviating factors identified. - Pain is constant in some areas, with occasional shooting pain up the fingers. - Denies associated chest pain, dyspnea, palpitations, dizziness, or diaphoresis. - Erythematous rash on the left elbow, noticed yesterday morning. - Rash is described as red, with associated pruritus and pain. - Denies any other rashes on the body. Diarrhea: - Diarrhea x3 days, with 3-4 bowel movements per day. - Associated with generalized abdominal discomfort and nausea, but no emesis. - Denies hematochezia or melena. - Tolerating oral intake. - Denies fever or chills, but reports experiencing hot flashes. PAST MEDICAL HISTORY: PAST MEDICAL HISTORY Diagnosis Date Adjustment disorder with depressed mood Anxiety state, unspecified Arthritis Asthma (HCC) Coronary artery disease Diverticulosis of colon (without mention of hemorrhage) Hemorrhage of gastrointestinal tract, unspecified Iron deficiency anemia 06/29/2021 Localized osteoarthrosis not specified whether primary or secondary, lower leg Lung nodules Myalgia Obstructive sleep apnea Other and unspecified hyperlipidemia Seasonal allergies Shingles 01/2017 Urge urinary incontinence PAST SURGICAL HISTORY Procedure Laterality Date ABDOMINAL SURGERY HX BREAST CYST PUNCTURE/BC BX OF BREAST; INCISIONAL Left 08/04/2024 CHOLECYSTECTOMY 04/09/2000 lap choley COLONOSCOPY - DIAGNOSTIC 11/01/2000 COLONOSCOPY FLX DX W/COLLJ SPEC WHEN PFRMD 09/09/2008 Colonoscopy COLONOSCOPY FLX DX W/COLLJ SPEC WHEN PFRMD 07/01/2014 Colonoscopy COLONOSCOPY FLX DX W/COLLJ SPEC WHEN PFRMD 11/05/2019 Colonoscopy COLONOSCOPY FLX DX W/COLLJ SPEC WHEN PFRMD 06/13/2021 ECHOCARDIOGRAM 04/24/2021 echo: LV small, LV SF WNL, EF 65%, grade 1 LVDD. All wall motion score normal. RV size and RV SF WNL, RVSP 38 mmHg consistent with mild pulmonary hypertension. LA and RA normal in size, inferior vena cava normal. MV: 0-1+ MVR, TV normal, 0-1+ TR, AV normal, PV not seen, 0-1+ FL. Mid a sending aorta 3.2 cm. Echocardiogram pulmonary arteries not interrogated, no pericardial effusion ESOPHAGOGASTRODUODENO SCOPY TRANSORAL DIAGNOSTIC 11/05/2019 EGD ESOPHAGOGASTRODUODENO SCOPY TRANSORAL DIAGNOSTIC 06/13/2021 EXCIS BREAST LESION Left 07/07/2024 US guided core bx Lt breast EYE SURGERY HX HEMORRHOIDECTOMY INTERNAL RUBBER BAND LIGATIONS 11/05/2019 PICC LINE INSERT/CONSULT 08/24/2021 SKIN BIOPSY HX TONSILLECTOMY HX TONSILLECTOMY PRIMARY/SECONDARY TOTAL KNEE REPLACEMENT ALLERGIES Phenergan [Promethazine Hcl], Rhptccl-Txb-Gpq Reductase Inhibitors, Adhesive, Breo Ellipta [Fluticasone Furoate-Vilanterol], Penicillins, Roxicodone [Oxycodone], Sulfa (Sulfonamide Antibiotics), and Vancomycin MEDICATIONS Current Outpatient Medications Medication Sig gabapentin (NEURONTIN) 100 mg capsule Take 1 capsule by mouth three times a day as needed for up to 30 days. valACYclovir (VALTREX) 1 gram tablet Take 1 tablet by mouth two times a day for 7 days. diclofenac (VOLTAREN) 1 % topical gel Apply 2 g to affected area two times a day as needed. buPROPion XL (WELLBUTRIN XL) 150 mg 24 hr tablet Take 1 tablet by mouth once da (more content not included)... [facility] CNOVon 11-23-2024 [facility] Office Visit ([facility] ) CHERYL MARRERO ([id number]) 1945 F Date Time Provider Department 11/23/24 9:00 AM FRANCISCO BROOKS During your visit today, we recorded the following information about you: Pulse Respiration Blood pressure Weight 82/minute 12/minute 162/84 76.2 kg Height 1.702 m Francisco Brooks MD 11/23/2024 9:14 AM Signed Francisco Brooks MD Interventional Cardiology [address] [place] [address] [phone] Chief Complaint Patient presents with: New Patient HISTORY OF PRESENT ILLNESS: Ms. Marrero is a 79 year old female seen in my office to establish cardiology care and assessment management for possible valvular heart disease Patient denies any cardiac history in the past denies any history of coronary artery disease stent or bypass surgery she was told she had a leaky valve by echocardiography in the past and she has been followed in my [facility] Asymptomatic denies chest pain or shortness of breath no signs or symptoms of congestive heart failure Echocardiography February 2023 revealed normal left ventricular function with normal right ventricular function trace +1 pulmonic regurgitation 1+ tricuspid regurgitation normal aortic valve normal mitral valve Cardiac Risk Factors age (male over 45, female over 55), hypertension PAST MEDICAL HISTORY Diagnosis Date Adjustment disorder with depressed mood Anxiety state, unspecified Arthritis Asthma Coronary artery disease Diverticulosis of colon (without mention of hemorrhage) Hemorrhage of gastrointestinal tract, unspecified Iron deficiency anemia 06/29/2021 Localized osteoarthrosis not specified whether primary or secondary, lower leg Lung nodules Myalgia Obstructive sleep apnea Other and unspecified hyperlipidemia Seasonal allergies Shingles 01/2017 Urge urinary incontinence PAST SURGICAL HISTORY Procedure Laterality Date ABDOMINAL SURGERY HX BREAST CYST PUNCTURE/BC BX OF BREAST; INCISIONAL Left 08/04/2024 CHOLECYSTECTOMY 04/09/2000 lap choley COLONOSCOPY - DIAGNOSTIC 11/01/2000 COLONOSCOPY FLX DX W/COLLJ SPEC WHEN PFRMD 09/09/2008 Colonoscopy COLONOSCOPY FLX DX W/COLLJ SPEC WHEN PFRMD 07/01/2014 Colonoscopy COLONOSCOPY FLX DX W/COLLJ SPEC WHEN PFRMD 11/05/2019 Colonoscopy COLONOSCOPY FLX DX W/COLLJ SPEC WHEN PFRMD 06/13/2021 ECHOCARDIOGRAM 04/24/2021 echo: LV small, LV SF WNL, EF 65%, grade 1 LVDD. All wall motion score normal. RV size and RV SF WNL, RVSP 38 mmHg consistent with mild pulmonary hypertension. LA and RA normal in size, inferior vena cava normal. MV: 0-1+ MVR, TV normal, 0-1+ TR, AV normal, PV not seen, 0-1+ FL. Mid a sending aorta 3.2 cm. Echocardiogram pulmonary arteries not interrogated, no pericardial effusion ESOPHAGOGASTRODUODENO SCOPY TRANSORAL DIAGNOSTIC 11/05/2019 EGD ESOPHAGOGASTRODUODENO SCOPY TRANSORAL DIAGNOSTIC 06/13/2021 EXCIS BREAST LESION Left 07/07/2024 US guided core bx Lt breast EYE SURGERY HX HEMORRHOIDECTOMY INTERNAL RUBBER BAND LIGATIONS 11/05/2019 PICC LINE INSERT/CONSULT 08/24/2021 SKIN BIOPSY HX TONSILLECTOMY HX TONSILLECTOMY PRIMARY/SECONDARY TOTAL KNEE REPLACEMENT FAMILY HISTORY Problem Relation Age of Onset Ischemic Heart Disease Father PASSED FROM [place] Diabetes Father Ischemic Heart Disease Mother PASSED FROM [place] Coronary Artery Disease Brother stent Diabetes Sister Cancer Maternal Grandfather lung Cancer Paternal Grandfather lung Social History Tobacco Use Smoking status: Never Smokeless tobacco: Never Tobacco comments: Lived with smokers in childhood home and until 2002. Vaping Use Vaping status: Never Used Substance Use Topics Alcohol use: No Drug use: No ALLERGIES Allergen Reactions Phenergan [Prometha* Mental Status Change, Intolerance Hlugnwp-Tjx-Mtd Red* Other: See Comments Elevated liver enzymes in hospital, statins stopped. Adhesive Rash Breo Ellipta [Fluti* Other: See Comments Hoarseness/ Shortness of breath Penicillins Other: See Comments Local reaction at site of injection Roxicodone [Oxycodo* Intolerance Severe nausea and lightheadness Sulfa (Sulfonamide * Vancomycin Other: See Comments redness Medications: Current Outpatient Medications Medication Sig Dispense Refill predniSONE (DELTASONE) 10 mg tablet Take 1 tablet by mouth two times a day for 3 days. 6 tablet 0 doxycycline (VIBRA-TABS) 100 mg tablet Take 1 tablet by mouth two times a day for 10 days. 20 tablet 0 diclofenac (VOLTAREN) 1 % topical gel Apply 2 g to affected area two times a day as needed. 200 g 0 buPROPion XL (WELLBUTRIN XL) 150 mg 24 hr tablet Take 1 tablet by mouth once daily. 90 tablet 3 folic acid 1 mg tablet Take 1 tablet by mouth once daily. 90 tablet 3 lansoprazole (PREVACID) 30 mg capsule Take 1 capsule by mouth once daily. 90 ca (more content not included)... [facility] CNOVon 11-22-[address] [facility] Office Visit ([facility] ) CHERYL MARRERO ([id number]) 1945 F Date Time Provider Department 11/22/24 12:15 PM RAUL ANNE WS During your visit today, we recorded the following information about you: Temperature Pulse Respiration Blood pressure 97.3 degrees 86/minute 16/minute 130/84 Weight 76.5 kg Raul Anne PA-C 11/22/2024 12:51 PM Signed This note was created using [employer]. Subjective Cheryl Marrero is a 79 year old female. Patient is an 79-year-old female complains of worsening congestion, sinus pressure, facial pain, ear pain and headache that she has been experiencing for the past 2 to 3 weeks. Patient reports no fever, chills or myalgia. Patient describes throat irritation that she states is secondary to significant postnasal drainage. Patient was seen and evaluated by primary care physician last month and diagnosed with a sinus infection. Patient reports that she was placed on antibiotic which resolved her symptoms very nicely, however she again developed the same symptoms approximately 2 weeks ago. Patient reports that her facial pain and pressure is very significant both underneath and above her eyes. Sore Throat Associated symptoms include congestion, ear pain and headaches. Review of Systems HENT: Positive for congestion, ear pain, postnasal drip, sinus pressure, sinus pain and sore throat. Neurological: Positive for headaches. All other systems reviewed and are negative. Objective BP 130/84 Pulse 86 Temp 36.3 ?C (97.3 ?F) Resp 16 Wt 76.5 kg (168 lb 10.4 oz) SpO2 97% BMI 26.41 kg/m? Physical Exam Vitals and nursing note reviewed. Constitutional: Appearance: Normal appearance. She is normal weight. HENT: Head: Normocephalic and atraumatic. Right Ear: Tympanic membrane, ear canal and external ear normal. Left Ear: Tympanic membrane, ear canal and external ear normal. Nose: Congestion present. Mouth/Throat: Mouth: Mucous membranes are moist. Pharynx: Oropharynx is clear. Posterior oropharyngeal erythema present. Eyes: Extraocular Movements: Extraocular movements intact. Conjunctiva/sclera: Conjunctivae normal. Pupils: Pupils are equal, round, and reactive to light. Cardiovascular: Rate and Rhythm: Normal rate and regular rhythm. Pulses: Normal pulses. Heart sounds: Normal heart sounds. Pulmonary: Effort: Pulmonary effort is normal. Breath sounds: Normal breath sounds. Musculoskeletal: Cervical back: Normal range of motion and neck supple. Skin: General: Skin is warm and dry. Capillary Refill: Capillary refill takes less than 2 seconds. Neurological: General: No focal deficit present. Mental Status: She is alert and oriented to person, place, and time. Psychiatric: Mood and Affect: Mood normal. Behavior: Behavior normal. Thought Content: Thought content normal. Judgment: Judgment normal. Assessment and Plan Physical exam findings as noted above. Patient was provided with prescriptions for doxycycline 100 mg and prednisone 10 mg. Supportive care instructions were discussed and the patient was advised that if her symptoms do not improve or if her symptoms recur she will need to be seen by her primary care physician as at that time she may require further evaluation with possible CT scan imaging that is not available at this [facility] care facility. Patient verbalizes clear understanding of the above instructions. CLINICAL IMPRESSION: Acute Sinusitis--Recurrent ASSESSMENT/PLAN: 1. Acute recurrent sinusitis, unspecified location - ICD9: 461.9, ICD10: J01.91 - PREDNISONE 10 MG TABLET - DOXYCYCLINE HYCLATE 100 MG TABLET MDM Risk of Complications, Morbidity, and/or Mortality Presenting problems: low Diagnostic procedures: low Management options: angelina Anne PA-C Referring Provider: SELF [200] Allergies As of Date: 11/22/2024 Noted Allergy Reaction PHENERGAN (PROMETHAZINE HCL) 12/16/2009 1 - Mental Status Change 5 - Intolerance [id number]-WGA REDUCTASE INHIBIT*05/14/2014 14 - Other: See Comments Comments: Elevated liver enzymes in hospital, statins stopped. ADHESIVE 08/02/2011 2 - Rash BREO ELLIPTA (FLUTICASONE FUROATE*04/18/2021 14 - Other: See Comments Comments: Hoarseness/ Shortness of breath PENICILLINS 06/18/2005 14 - Other: See Comments Comments: Local reaction at site of injection ROXICODONE (OXYCODONE) 08/16/2021 5 - Intolerance Comments: Severe nausea and lightheadness SULFA (SULFONAMIDE ANTIBIOTICS) 06/18/2005 VANCOMYCIN 10/05/2021 14 - Other: See Comments Comments: redness Date Reviewed: 11/22/2024 Reviewed by: Rani Wilson MA - Fully Assessed Reason for Visit: Sore Throat [200] Cmt: dizziness, ear pain and headache x 10/23 Primary Visit Diagnosis:Acute recurrent sinusitis, unspecified location [J01.91] Order(s):predniSONE (DELTASONE) 10 mg tabletTake 1 tablet by mouth two (more content not included)... Normal [facility] 25(OH)[facility]3 [facility] 25-hydroxyvitamin D3 [Mass/Vol] 32.5 ng/mL Normal 31.0-80.0 [facility] Comment on above: Order Comment: Speci men Type: BLOOD SPECIMENOrdering Facility: [facility] Address: [address] [place] [address] Result Comment: Clas sification of 25 [place] Vitamin D status: Deficiency/Insufficiency: < or = 30 ng/ml. Sufficiency/Optimal Levels: 31-80 ng/mL Toxicity: > 100 ng/mL. Test performed by chemiluminescent immunoassay. Performed By: #### 1 989-3 ####[facility] LABCLIA [id number] [place] [address] [place] CBC W Auto Differential pane l (Bld)on 10-23-2024 Basophils (Bld) [#/Vol] 0.06 10*3/uL [facility] Basophils/100 WBC (Bld) 0.7 % [facility] Differential cell count method Nom (Bld) Auto [facility] Eosinophils (Bld) [#/Vol] 0.23 10*3/uL [facility] Eosinophils/100 WBC (Bld) 2.8 % [facility] Erythrocyte distribution width (RBC) [Ratio] 14.5 % 11.5 - 15.0 % [facility] Hematocrit (Bld) [Volume fraction] 38.6 % 36.0 - 46.0 % [facility] Hemoglobin (Bld) [Mass/Vol] 11.7 g/dL 11.5 - 15.5 g/dL [facility] Immature granulocytes (Bld) [#/Vol] NINF [facility] Immature granulocytes/100 WBC (Bld) 0.2 % [facility] Interpretation and review of laboratory results Abnormal [facility] Lymphocytes (Bld) [#/Vol] 1.35 10*3/uL [facility] Lymphocytes/100 WBC (Bld) 16.6 % [facility] MCH (RBC) [Entitic mass] 27.2 pg 26.0 - 34.0 pg [facility] MCHC (RBC) [Mass/Vol] 30.3 g/dL Low 30.5 - 36.0 g/dL [facility] MCV (RBC) [Entitic vol] 89.8 fL 80.0 - 100.0 fL [facility] Monocytes (Bld) [#/Vol] 0.59 10*3/uL [facility] Monocytes/100 WBC (Bld) 7.3 % C [facility] Neutrophils (Bld) [#/Vol] 5.87 10*3/uL [facility] Neutrophils/100 WBC (Bld) 72.4 % [facility] Nucleated RBC (Bld) [#/Vol] NINF [facility] Nucleated RBC/100 WBC (Bld) [Ratio] 0 % /100 WBC [facility] Platelet mean volume (Bld) [Entitic vol] 9.7 fL 9.0 - 12.7 fL [facility] Platelets (Bld) [#/Vol] 334 10*3/uL [facility] RBC (Bld) [#/Vol] 4.3 10*6/uL 3.90 - 5.2 0 m/uL [facility] WBC (Bld) [#/Vol] 8.12 10*3/uL [facility] Basophils (Bld) [#/Vol] 0.06 10*3/uL Normal <0.11 [facility] Comment on above: Order Comment: Speci men Type: BLOOD SPECIMENOrdering Facility: [facility] Address: [address] [place] [address] Performed By: #### 5 7021-8 ####[facility] [id number] [address] [place] Basophils/100 WBC (Bld) 0.7 % Normal [facility] Comment on above: Order Comment: Speci men Type: BLOOD SPECIMENOrdering Facility: [facility] Address: [address] [place] [address] Performed By: #### 5 7021-8 ####[facility] [id number] [place] [address] [place] Differential cell count method Nom (Bld) Auto Normal [facility] Comment on above: Order Comment: Speci men Type: BLOOD SPECIMENOrdering Facility: [facility] Address: [address] [place] [address] Performed By: #### 5 7021-8 ####[facility] MILLWNCLIA [id number] [place] [address] [place] Eosinophils (Bld) [#/Vol] 0.23 10*3/uL Normal <0.46 [facility] Comment on above: Order Comment: Speci men Type: BLOOD SPECIMENOrdering Facility: [facility] Address: [address] [place] [address] Performed By: #### 5 7021-8 ####[facility] HOSPITALLIA [id number] [place] [address] [place] Eosinophils/100 WBC (Bld) 2.8 % Normal [facility] Comment on above: Order Comment: Speci men Type: BLOOD SPECIMENOrdering Facility: [facility] Address: [address] [place] [address] Performed By: #### 5 7021-8 ####[facility] HOSPITALLIA [id number] [place] [address] [place] Erythrocyte distribution width (RBC) [Ratio] 14.5 % Normal 11.5-15.0 [facility] Comment on above: Order Comment: Speci men Type: BLOOD SPECIMENOrdering Facility: [facility] Address: [address] [place] [address] Performed By: #### 5 7021-8 ####[facility] HOSPITALLIA [id number] [place] [address] [place] Hematocrit (Bld) [Volume fraction] 38.6 % Normal 36.0-46.0 [facility] Comment on above: Order Comment: Speci men Type: BLOOD SPECIMENOrdering Facility: [facility] Address: [address] [place] [address] Performed By: #### 5 7021-8 ####[facility]ITALNCLIA [id number] [place] [address] [place] Hemoglobin (Bld) [Mass/Vol] 11.7 g/dL Normal 11.5-15.5 [facility] Comment on above: Order Comment: Speci men Type: BLOOD SPECIMENOrdering Facility: [facility] Address: [address] [place] [address] Performed By: #### 5 7021-8 ####[facility] HOSPITALWNCLIA [id number] [place] [address] [place] Immature granulocytes (Bld) [#/Vol] 10*3/uL Normal <0.10 [facility] Comment on above: Order Comment: Speci men Type: BLOOD SPECIMENOrdering Facility: [facility] Address: [address] [place] [address] Performed By: #### 5 7021-8 ####[facility] [id number] [place] [address] [place] Immature granulocytes/100 WBC (Bld) 0.2 % Normal [facility] Comment on above: Order Comment: Speci men Type: BLOOD SPECIMENOrdering Facility: [facility] Address: [address] [place] [address] Performed By: #### 5 7021-8 ####[facility] HOSPITALLIA [id number] [place] [address] [place] Lymphocytes (Bld) [#/Vol] 1.35 10*3/uL Normal 1.00-4.00 [facility] Comment on above: Order Comment: Speci men Type: BLOOD SPECIMENOrdering Facility: [facility] Address: [address] [place] [address] Performed By: #### 5 7021-8 ####[facility]ITALNCLIA [id number] [place] [address] [place] Lymphocytes/100 WBC (Bld) 16.6 % Normal [facility] Comment on above: Order Comment: Speci men Type: BLOOD SPECIMENOrdering Facility: [facility] Address: [address] [place] [address] Performed By: #### 5 7021-8 ####[facility] LOLLYADARSH [id number] [place] [address] [place] MCH (RBC) [Entitic mass] 27.2 pg Normal 26.0-34.0 [facility] Comment on above: Order Comment: Speci men Type: BLOOD SPECIMENOrdering Facility: [facility] Address: [address] [place] [address] Performed By: #### 5 7021-8 ####[facility]ITALNCTIMPANOGOS [facility] [id number] [place] [address] [place] MCHC (RBC) [Mass/Vol] 30.3 g/dL Low 30.5-36.0 [facility] Comment on above: Order Comment: Speci men Type: BLOOD SPECIMENOrdering Facility: [facility] Address: [address] [place] [address] Performed By: #### 5 7021-8 ####[facility] [id number] [place] [address] [place] MCV (RBC) [Entitic vol] 89.8 fL Normal 80.0-100.0 C [facility] Comment on above: Order Comment: Speci men Type: BLOOD SPECIMENOrdering Facility: [facility] Address: [address] [place] [address] Performed By: #### 5 7021-8 ####[facility]ITALNCTIMPANOGOS [facility] [id number] [place] [address] [place] Monocytes (Bld) [#/Vol] 0.59 10*3/uL Normal <0.87 [facility] Comment on above: Order Comment: Speci men Type: BLOOD SPECIMENOrdering Facility: [facility] Address: [address] [place] [address] Performed By: #### 5 7021-8 ####[facility] MILLWNCLIA [id number] [place] [address] [place] Monocytes/100 WBC (Bld) 7.3 % Normal [facility] Comment on above: Order Comment: Speci men Type: BLOOD SPECIMENOrdering Facility: [facility] Address: [address] [place] [address] Performed By: #### 5 7021-8 ####[facility]ITALNCLIA [id number] [place] [address] [place] Neutrophils (Bld) [#/Vol] 5.87 10*3/uL Normal 1.45-7.50 [facility] Comment on above: Order Comment: Speci men Type: BLOOD SPECIMENOrdering Facility: [facility] Address: [address] [place] [address] Performed By: #### 5 7021-8 ####[facility] HOSPITALLIA [id number] [place] [address] [place] Neutrophils/100 WBC (Bld) 72.4 % Normal [facility] Comment on above: Order Comment: Speci men Type: BLOOD SPECIMENOrdering Facility: [facility] Address: [address] [place] [address] Performed By: #### 5 7021-8 ####[facility]OSPITALBOBBYLIA [id number] [place] [address] [place] Nucleated RBC (Bld) [#/Vol] 10*3/uL Normal <0.01 [facility] Comment on above: Order Comment: Speci men Type: BLOOD SPECIMENOrdering Facility: [facility] Address: [address] [place] [address] Performed By: #### 5 7021-8 ####[facility]ITALNCLIA [id number] [place] [address] [place] Nucleated RBC/100 WBC (Bld) [Ratio] 0.0 /100 WBC Normal [facility] Comment on above: Order Comment: Speci men Type: BLOOD SPECIMENOrdering Facility: [facility] Address: [address] [place] [address] Performed By: #### 5 7021-8 ####[facility] HOSPITALNCZACHA [id number] [place] [address] [place] Platelet mean volume (Bld) [Entitic vol] 9.7 fL Normal 9.0-12.7 [facility] Comment on above: Order Comment: Speci men Type: BLOOD SPECIMENOrdering Facility: [facility] Address: [address] [place] [address] Performed By: #### 5 7021-8 ####[facility] HOSPITALNCA [id number] [place] [address] [place] Platelets (Bld) [#/Vol] 334 10*3/uL Normal 150-400 [facility] Comment on above: Order Comment: Speci men Type: BLOOD SPECIMENOrdering Facility: [facility] Address: [address] [place] [address] Performed By: #### 5 7021-8 ####[facility]ITALNCLIA [id number] [place] [address] [place] RBC (Bld) [#/Vol] 4.30 10*6/uL Normal 3.90-5.20 [facility] Comment on above: Order Comment: Speci men Type: BLOOD SPECIMENOrdering Facility: [facility] Address: [address] [place] [address] Performed By: #### 5 7021-8 ####[facility]ITALNCLIA [id number] [place] [address] [place] WBC (Bld) [#/Vol] 8.12 10*3/uL Normal 3.70-11.00 [facility] Comment on above: Order Comment: Speci men Type: BLOOD SPECIMENOrdering Facility: [facility] Address: [place] [address] Performed By: #### 5 7021-8 ####[facility] HANDY ALBA [id number] [place] [id number] [place] [address] OF [facility] CNOVon 10-23-2024 CNOV Office Visit (FAMPWS ) CHERYL MARRERO ([id number]) 1945 F Date Time Provider Department 10/23/24 9:00 AM [facility] During your visit today, we recorded the following information about you: Temperature Pulse Blood pressure Weight 97 degrees 70/minute 132/76 74.4 kg Afia Schafer, WATER MECHANIC.ROOF BOLTER OPERATOR 10/23/2024 10:14 AM Addendum This is a 79 year old female who presents today with: Patient presents with: 6 Month Exam Back Pain Knee Pain HISTORY OF PRESENT ILLNESS: Cheryl Marrero is a 79 year old female. Patient presents with: 6 Month Exam Back Pain Knee Pain Sore throat, nasal congestion, ears bothering her. Concerned about memory Knee bothers her- never fully recovered since surgery Discussed protein, fruits and vegetables, and sleep Saw specialist and had back injections that didn't help Thought it may be muscular PAST MEDICAL HISTORY: PAST MEDICAL HISTORY Diagnosis Date Adjustment disorder with depressed mood Anxiety state, unspecified Arthritis Asthma Coronary artery disease Diverticulosis of colon (without mention of hemorrhage) Hemorrhage of gastrointestinal tract, unspecified Iron deficiency anemia 06/29/2021 Localized osteoarthrosis not specified whether primary or secondary, lower leg Lung nodules Myalgia Obstructive sleep apnea Other and unspecified hyperlipidemia Seasonal allergies Shingles 01/2017 Urge urinary incontinence PAST SURGICAL HISTORY Procedure Laterality Date ABDOMINAL SURGERY HX BREAST CYST PUNCTURE/BC BX OF BREAST; INCISIONAL Left 08/04/2024 CHOLECYSTECTOMY 04/09/2000 lap choley COLONOSCOPY - DIAGNOSTIC 11/01/2000 COLONOSCOPY FLX DX W/COLLJ SPEC WHEN PFRMD 09/09/2008 Colonoscopy COLONOSCOPY FLX DX W/COLLJ SPEC WHEN PFRMD 07/01/2014 Colonoscopy COLONOSCOPY FLX DX W/COLLJ SPEC WHEN PFRMD 11/05/2019 Colonoscopy COLONOSCOPY FLX DX W/COLLJ SPEC WHEN PFRMD 06/13/2021 ECHOCARDIOGRAM 04/24/2021 echo: LV small, LV SF WNL, EF 65%, grade 1 LVDD. All wall motion score normal. RV size and RV SF WNL, RVSP 38 mmHg consistent with mild pulmonary hypertension. LA and RA normal in size, inferior vena cava normal. MV: 0-1+ MVR, TV normal, 0-1+ TR, AV normal, PV not seen, 0-1+ FL. Mid a sending aorta 3.2 cm. Echocardiogram pulmonary arteries not interrogated, no pericardial effusion ESOPHAGOGASTRODUODENO SCOPY TRANSORAL DIAGNOSTIC 11/05/2019 EGD ESOPHAGOGASTRODUODENO SCOPY TRANSORAL DIAGNOSTIC 06/13/2021 EXCIS BREAST LESION Left 07/07/2024 US guided core bx Lt breast EYE SURGERY HX HEMORRHOIDECTOMY INTERNAL RUBBER BAND LIGATIONS 11/05/2019 PICC LINE INSERT/CONSULT 08/24/2021 SKIN BIOPSY HX TONSILLECTOMY HX TONSILLECTOMY PRIMARY/SECONDARY TOTAL KNEE REPLACEMENT ALLERGIES Phenergan [Promethazine Hcl], Khhgkxp-Jaf-Cxr Reductase Inhibitors, Adhesive, Breo Ellipta [Fluticasone Furoate-Vilanterol], Penicillins, Roxicodone [Oxycodone], Sulfa (Sulfonamide Antibiotics), and Vancomycin MEDICATIONS Current Outpatient Medications Medication Sig tiZANidine (ZANAFLEX) 2 mg tablet Take 1 tablet by mouth every 8 hours as needed. diclofenac (VOLTAREN) 1 % topical gel Apply 2 g to affected area two times a day as needed. buPROPion XL (WELLBUTRIN XL) 150 mg 24 hr tablet Take 1 tablet by mouth once daily. folic acid 1 mg tablet Take 1 tablet by mouth once daily. lansoprazole (PREVACID) 30 mg capsule Take 1 capsule by mouth once daily. metoprolol succinate ER (TOPROL XL) 25 mg 24 hr tablet Take 1 tablet by mouth two times a day. rosuvastatin (CRESTOR) 5 mg tablet Take 1 tablet by mouth daily at bedtime. albuterol HFA (PROAIR HFA) 90 mcg/actuation inhaler Inhale 2 Puffs as instructed every 6 hours as needed. meclizine (ANTIVERT) 25 mg tab Take 25 mg by mouth three times daily as needed. From [facility] clindamycin (CLEOCIN) 300 mg capsule Take 2 capsules by mouth one hour prior to dental cleaning/procedure ascorbic acid (VITAMIN C ORAL) Take 1 tablet by mouth once daily. 1000mg CPAP polyethylene glycol 3350 (MIRALAX ORAL) Take 1 Tablespoonful by mouth as needed. acetaminophen (TYLENOL) 500 mg tablet Take 2 tablets by mouth every 8 hours as needed. fluticasone (FLONASE) 50 mcg/actuation nasal spray Use 1 [place] in each nostril once daily. vitamin B complex (B COMPLEX 1 ORAL) Take 1 tablet by mouth once daily. cholecalciferol (VITAMIN D3) 1,000 unit tab tablet Take 1,000 Units by mouth once daily. No current facility-administered medications for this visit. FAMILY HISTORY Problem Relation Age of Onset Ischemic Heart Disease Father [place]ED [place] Diabetes Father Ischemic Heart Disease Mother [place]ED FROM [place] Coronary Artery Disease Brother stent Diabetes Sister Cancer Maternal Grandfather lung Cancer Paternal Grandfather lung Social History Tobacco Use Smoking statu (more content not included)... Normal [facility] Rylie 10-23-2024 KONSTANTIN Telephone (DANELLE) CHERYL MARRERO ([id number]) 1945 F Date Time Provider Department 10/23/24 AFIA SCHAFER During your visit today, we recorded the following information about you: Radha Dubois, LI 10/23/2024 11:06 AM Signed patient was in today and was seen by Erica. Patient states that it was discussed about a device that she could get OTC to help stimulate hip area and patient thought it was going to be on her AVS but she can not locate it. patient is asking provider to please sent her the information via [employer], and what it was that she needed and RX for. please review and send message. Afia Schafer APRN.BE 10/23/2024 11:16 AM Signed He can order online at [facility] and there would not need a prescription. It is called a TENs unit. Transcutaneous electrical nerve stimulation. Sorry about that. I also did place a consult for Dr. Brooks and asked the nurse to have schedulers call with an appt. No danita. Kath Greenwood LPN 10/23/2024 11:42 AM Signed Schedulers she had an order placed for cardiology after her visit today. Can you please contact to help her set up with cardiology? Thank you! Miranda Anand 10/27/2024 9:35 AM Signed Spoke with patient and scheduled. Miranda Anand Allergies As of Date: 10/23/2024 Noted Allergy Reaction PHENERGAN (PROMETHAZINE HCL) 12/16/2009 1 - Mental Status Change 5 - Intolerance [id number] REDUCTASE INHIBIT*05/14/2014 14 - Other: See Comments Comments: Elevated liver enzymes in hospital, statins stopped. ADHESIVE 08/02/2011 2 - Rash BREO ELLIPTA (FLUTICASONE FUROATE*04/18/2021 14 - Other: See Comments Comments: Hoarseness/ Shortness of breath PENICILLINS 06/18/2005 14 - Other: See Comments Comments: Local reaction at site of injection ROXICODONE (OXYCODONE) 08/16/2021 5 - Intolerance Comments: Severe nausea and lightheadness SULFA (SULFONAMIDE ANTIBIOTICS) 06/18/2005 VANCOMYCIN 10/05/2021 14 - Other: See Comments Comments: redness Date Reviewed: 10/23/2024 Reviewed by: Bibi Scott MA - Fully Assessed Reason for Visit: Patient Question [0935] Prescriptions as of 10/27/2024 - methocarbamol (ROBAXIN) 500 mg tablet Take 1 tablet by mouth three times a day as needed. - doxycycline (VIBRA-TABS) 100 mg tablet Take 1 tablet by mouth two times a day for 10 days. - diclofenac (VOLTAREN) 1 % topical gel Apply 2 g to affected area two times a day as needed. - buPROPion XL (WELLBUTRIN XL) 150 mg 24 hr tablet Take 1 tablet by mouth once daily. - folic acid 1 mg tablet Take 1 tablet by mouth once daily. - lansoprazole (PREVACID) 30 mg capsule Take 1 capsule by mouth once daily. - metoprolol succinate ER (TOPROL XL) 25 mg 24 hr tablet Take 1 tablet by mouth two times a day. - rosuvastatin (CRESTOR) 5 mg tablet Take 1 tablet by mouth daily at bedtime. - albuterol HFA (PROAIR HFA) 90 mcg/actuation inhaler Inhale 2 Puffs as instructed every 6 hours as needed. - meclizine (ANTIVERT) 25 mg tab Take 25 mg by mouth three times daily as needed. From [facility] - clindamycin (CLEOCIN) 300 mg capsule Take 2 capsules by mouth one hour prior to dental cleaning/procedure - ascorbic acid (VITAMIN C ORAL) Take 1 tablet by mouth once daily. 1000mg - polyethylene glycol 3350 (MIRALAX ORAL) Take 1 Tablespoonful by mouth as needed. - acetaminophen (TYLENOL) 500 mg tablet Take 2 tablets by mouth every 8 hours as needed. - fluticasone (FLONASE) 50 mcg/actuation nasal spray Use 1 [place] in each nostril once daily. - vitamin B complex (B COMPLEX 1 ORAL) Take 1 tablet by mouth once daily. - cholecalciferol (VITAMIN D3) 1,000 unit tab tablet Take 1,000 Units by mouth once daily. Problem List As Of Date 10/23/2024 Noted Resolved Anxiety state, unspecified [F41.1] 06/13/2017 INT HEMORRHOID W/O COMPL [K64.8] DIVERTICULOSIS OF COLON W/O BLEED [K57.30] Hemorrhage of gastrointestinal tract, unspecifi* 12/11/2016 Hyperlipidemia [E78.5] ADJUSTMENT DISORDER WITH DEPRESSED MOOD [F43.21]01/03/2006 URGE INCONTINENCE [N39.41] 07/05/2006 Diarrhea [R19.7] 09/09/2008 12/11/2016 Breast density [R92.30] 01/25/2010 12/11/2016 GERD (gastroesophageal reflux disease) [K21.9] 07/18/2010 Plantar fasciitis, bilateral [M72.2] 08/06/2012 12/11/2016 RAVIN (obstructive sleep apnea) [G47.33] 05/09/2013 08/16/2021 Urinary frequency [R35.0] 08/04/2013 Irritable bowel syndrome with diarrhea [K58.0] 08/09/2015 Mild persistent asthma without complication [J4*08/09/2015 IPMN (intraductal papillary mucinous neoplasm) *08/09/2015 Primary osteoarthritis of left knee [M17.12] 08/09/2015 08/16/2021 DDD (degenerative disc disease), lumbar [M51.36*06/13/2017 BPPV (benign paroxysmal positional vertigo), un*06/26/2017 Obesity, Class I, BMI 30-34.9 [E66.811] 01/13/2018 08/16/2021 Asthma [J45.909] 08/16/2021 Seasonal allergies [J30.2] Obstructive sle (more content not included)... Normal [facility] Comprehensive metabolic 2000 panelon 10-23-2024 Albumin [Mass/Vol] 4.1 g/dL Normal 3.9-4.9 [facility] Comment on above: Order Comment: Speci men Type: BLOOD SPECIMENOrdering Facility: [facility] Address: [address] [place] [address] Performed By: #### 2 132-9, LIPNF ####[facility] LABORATORYCLIA [id number] [place] [address] [place]#### 19192-5, 90287-5 ####[facility] [id number] [place] [address] [place] ALP [Catalytic activity/Vol] 95 U/L Normal 34-123 [facility] Comment on above: Order Comment: Speci men Type: BLOOD SPECIMENOrdering Facility: [facility] Address: [address] [place] [address] Performed By: #### 2 132-9, LIPNF ####[facility] LABORATORYCLIA [id number] [place] [address] [place]#### 52334-6, 88718-8 ####[facility] HANDY MILLTOWNCLIA [id number] [place] [address] [place] ALT [Catalytic activity/Vol] 10 U/L Normal 7-38 [facility] Comment on above: Order Comment: Speci men Type: BLOOD SPECIMENOrdering Facility: [facility] Address: [address] [place] [address] Performed By: #### 2 132-9, LIPNF ####[facility] LABORATORYCLIA [id number] [place] [address] [place] OF [place]#### 42514-4, 56079-6 ####[facility] HANDY MILLTOWNCLIA [id number] [place] [address] [place] Anion gap [Moles/Vol] 14 mmol/L Normal 8-15 [facility] Comment on above: Order Comment: Speci men Type: BLOOD SPECIMENOrdering Facility: [facility] Address: [address] [place] [address] Performed By: #### 2 132-9, LIPNF ####[facility] LABORATORYCLIA [id number] [place] [address] [place]#### 97421-3, 64233-7 ####[facility] HANDY MILLTOWNCLIA [id number] [place] [address] [place] AST [Catalytic activity/Vol] 13 U/L Normal 13-35 [facility] Comment on above: Order Comment: Speci men Type: BLOOD SPECIMENOrdering Facility: [facility] Address: [address] [place] [address] Performed By: #### 2 132-9, LIPNF ####[facility] LABORATORYCLIA [id number] [place] [address] [place]#### 63474-9, 64209-9 ####[facility] HANDY MILLTOWNCLIA [id number] [place] [address] [place] Bilirubin [Mass/Vol] 0.3 mg/dL Normal 0.2-1.3 [facility] Comment on above: Order Comment: Speci men Type: BLOOD SPECIMENOrdering Facility: [facility] Address: [address] [place] [address] Performed By: #### 2 132-9, LIPNF ####[facility] LABORATORYCLIA [id number] [place] [address] [place]#### 33194-6, 35685-2 ####[facility] [id number] [place] [address] [place] Calcium [Mass/Vol] 9.9 mg/dL Normal 8.5-10.2 [facility] Comment on above: Order Comment: Speci men Type: BLOOD SPECIMENOrdering Facility: [facility] Address: [address] [place] [address] Performed By: #### 2 132-9, LIPNF ####[facility] LABORATORYCLIA [id number] [place] [address] [place]#### 10815-9, 40082-4 ####[facility] HOSPITALLIA [id number] [place] [address] [place] Chloride [Moles/Vol] 108 mmol/L High 98-107 [facility] Comment on above: Order Comment: Speci men Type: BLOOD SPECIMENOrdering Facility: [facility] Address: [facility] [place] [address] Performed By: #### 2 132-9, LIPNF ####[facility]ORATORYCLIA [id number] [place] [address] [place]#### 13353-8, 64321-6 ####[facility] MILLWNCLIA [id number] [place] [address] CO2 [Moles/Vol] 21 mmol/L Low 22-30 [facility] Comment on above: Order Comment: Speci men Type: BLOOD SPECIMENOrdering Facility: [facility] Address: [address] [place] [address] Performed By: #### 2 132-9, LIPNF ####[facility] LABORATORYCLIA [id number] [address] OF [place]#### 14742-9, 75441-0 ####[facility] HOSPITALLIA [id number] [place] [address] [place] Creatinine [Mass/Vol] 1.15 mg/dL High 0.58-0.96 [facility] Comment on above: Order Comment: Speci men Type: BLOOD SPECIMENOrdering Facility: [facility] Address: [address] [place] [address] Performed By: #### 2 132-9, LIPNF ####[facility] LABORATORYCLIA [id number] [address] OF [place]#### 68566-8, 63457-9 ####[facility] HOSPITALLIA [id number] [place] [address] [place] Creatinine and Glomerular filtration rate.predicted panel (S/P/Bld) 48 mL/min/1.73m??? Low >=60 [facility] Comment on above: Order Comment: Speci men Type: BLOOD SPECIMENOrdering Facility: [facility] Address: [address] [place] [address] Result Comment: Ruth mated Glomerular Filtration Rate (eGFR) is calculated using the 2020 CKD-EPI creatinine equation. This equation utilizes serum creatinine, sex, and age as parameters. The creatinine assay has traceable calibration to isotope dilution-mass spectrometry. Refer to KDIGO guidelines for clinical interpretation. In patients with unstable renal function, e.g. those with acute kidney injury, the eGFR may not accurately reflect actual GFR. Performed By: #### 2 132-9, LIPNF ####[facility] LABORATORYCLIA [id number] [place] [address] [place]#### 88996-0, 15402-4 ####[facility] [id number] [place] [address] [place] Glucose [Mass/Vol] 104 mg/dL High 74-99 [facility] Comment on above: Order Comment: Speci men Type: BLOOD SPECIMENOrdering Facility: [facility] Address: [address] [place] [address] Result Comment: The [place] Diabetes Association (ADA) provides guidance for cutoff values for fasting glucose and random glucose. The ADA defines fasting as no caloric intake for at least 8 hours. Fasting plasma glucose results between 100 to 125 mg/dL indicate increased risk for diabetes (prediabetes). Fasting plasma glucose results greater than or equal to 126 mg/dL meet the criteria for diagnosis of diabetes. In the absence of unequivocal hyperglycemia, results should be confirmed by repeat testing. In a patient with classic symptoms of hyperglycemia or hyperglycemic crisis, random plasma glucose results greater than or equal to 200 mg/dL meet the criteria for diagnosis of diabetes. Reference: Standards of Medical Care in Diabetes 2016, [place] Diabetes Association. Diabetes Care. 2016.39(Suppl 1). Performed By: #### 2 132-9, LIPNF ####[facility] LABORATORYCLIA [id number] [place] [address] [place]#### 11587-7, 48966-3 ####[facility] HOSPITALLIA [id number] [place] [address] [place] Potassium [Moles/Vol] 4.9 mmol/L Normal 3.7-5.1 [facility] Comment on above: Order Comment: Speci men Type: BLOOD SPECIMENOrdering Facility: [facility] Address: [address] [place] [address] Performed By: #### 2 132-9, LIPNF ####[facility] LABORATORYCLIA [id number] [place] [address] [place]#### 99122-4, 91907-6 ####[facility] HANDY MILLTOWNCLIA [id number] [place] [address] [place] Protein [Mass/Vol] 7.0 g/dL Normal 6.3-8.0 [facility] Comment on above: Order Comment: Speci men Type: BLOOD SPECIMENOrdering Facility: [facility] Address: [address] [place] [address] Performed By: #### 2 132-9, LIPNF ####[facility] LABORATORYCLIA [id number] [place] [address] [place]#### 44193-7, 91558-1 ####[facility] MILLTOWNCLIA [id number] [place] [address] [place] Sodium [Moles/Vol] 143 mmol/L Normal 136-144 [facility] Comment on above: Order Comment: Speci men Type: BLOOD SPECIMENOrdering Facility: [facility] Address: [address] [place] [address] Performed By: #### 2 132-9, LIPNF ####[facility] LABORATORYCLIA [id number] [place] [address] [place]#### 79684-2, 82092-8 ####[facility] MILLTOWNCLIA [id number] [place] [address] [place] Urea nitrogen [Mass/Vol] 24 mg/dL High 7-21 [facility] Comment on above: Order Comment: Speci men Type: BLOOD SPECIMENOrdering Facility: [facility] Address: [address] [place] [address] Performed By: #### 2 132-9, LIPNF ####[facility]ORATORYCLIA [id number] [place] [address] [place]#### 12603-3, 73240-3 ####[facility] HANDY MILLTOWNCLIA [id number] [place] [address] [place] HbA1c (Bld)on 10-23-2024 Average glucose Estimated from glycated hemoglobin (Bld) [Mass/Vol] 126 mg/dL Normal [facility] Comment on above: Order Comment: Ebony de la torre Type: BLOOD SPECIMENOrdering Facility: [facility] Address: [address] [place] [address] Result Comment: eAG: (Estimated average glucose) is a calculated value from HgbA1c and is veterans employment representative of the average blood glucose level in the last 2-3 month period. Performed By: #### 5 5454-3 ####[facility] LABCLIA [id number] [address] STATES OF [facility] HbA1c (Bld) [Mass fraction] 6.0 % High 4.3-5.6 [facility] Comment on above: Order Comment: Ebony de la torre Type: BLOOD SPECIMENOrdering Facility: [facility] Address: [address] [place] [address] Result Comment: Amer ican Diabetes Association guidelines indicate that patients with HgbA1c in the range 5.7-6.4% are at increased risk for development of diabetes, and intervention by lifestyle modification may be beneficial. HgbA1c greater or equal to 6.5% is considered diagnostic of diabetes. Performed By: #### 5 5454-3 ####[facility] LABCLIA [id number] [place] [address] [place] LIPID PANEL, NONFASTINGon Cholesterol [Mass/Vol] 158 mg/dL Normal <200 [facility] Comment on above: Order Comment: Ebony de la torre Type: BLOOD SPECIMENOrdering Facility: [facility] Address: [address] [place] [address] Result Comment: <200 mg/dL, Desirable 200-239 mg/dL, Borderline high >239 mg/dL, High Performed By: #### 2 132-9, LIPNF ####[facility] LABORATORYCLIA [id number] [address] STATES OF [place]#### 37254-2, 65640-2 ####[facility] MILLTOWNCLIA [id number] [place] [address] [place] HDL CHOLESTEROL, NF 49 mg/dL Normal >39 [facility] Comment on above: Order Comment: Speci men Type: BLOOD SPECIMENOrdering Facility: [facility] Address: [address] [place] [address] Result Comment: 40-5 9 mg/dL, Acceptable >59 mg/dL, High: Negative risk factor for coronary heart disease <40 mg/dL, Low: Positive risk factor for coronary heart disease Performed By: #### 2 132-9, LIPNF ####[facility] LABORATORYCLIA [id number] [address] OF [facility]#### 08722-0, 71425-9 ####[facility]PITALLIA [id number] [address] STATES [facility] LDL CHOLESTEROL, NF 90 mg/dL Normal <100 [facility] Comment on above: Order Comment: Speci men Type: BLOOD SPECIMENOrdering Facility: [facility] Address: [address] [place] [address] Result Comment: <100 mg/dL, Optimal 100-129 mg/dL, Near optimal/above optimal 130-159 mg/dL, Borderline high 160-189 mg/dL, High >189 mg/dL, Very high Secondary prevention optimal LDL Cholesterol levels are recommended to be < 70 mg/dL Performed By: #### 2 132-9, LIPNF ####[facility]ORATORYCLIA [id number] [address] STATES OF [place]#### 51277-0, 27206-4 ####[facility]ITALWNCLIA [id number] [address] STATES OF [place] LDL/HDL RATIO, NF 1.84 mg/dL Normal <2.54 [facility] Comment on above: Order Comment: Speci men Type: BLOOD SPECIMENOrdering Facility: [facility] Address: [address] [place] [address] Result Comment: Martina spain: 1. National Cholesterol Education Program ATP III Guideline At-A-Glance Quick Desk Reference: National Heart, Lung, and Blood [place]. National Institutes of Health. 2001: NIH Publication No. 01-3305. 2. An International Atherosclerosis Society position paper: global recommendations for the management of dyslipidemia: executive summary, Atherosclerosis. 2014: 232(2):410-413. Performed By: #### 2 132-9, LIPNF ####[facility] LABORATORYCLIA [id number] [address]#### 08301-9, 77167-6 ####[facility] HOSPITALLIA [id number] [address] NON HDL CHOL, NF 109 mg/dL Normal <130 [facility] Comment on above: Order Comment: Speci men Type: BLOOD SPECIMENOrdering Facility: [facility] Address: [address] [place] [address] Result Comment: <130 mg/dL, Optimal 130-159 mg/dL, Near optimal/above optimal 160-189 mg/dL, Borderline high 190-219 mg/dL, High >219 mg/dL, Very high Secondary prevention optimal non HDL Cholesterol levels are recommended to be <100 mg/dL Performed By: #### 2 132-9, LIPNF ####[facility] LABORATORYCLIA [id number] [address]#### 08044-2, 02507-3 ####[facility]ITALLIA [id number] [address] T CHOL/HDL RATIO NF 3.22 mg/dL Normal <5.10 [facility] Comment on above: Order Comment: Speci men Type: BLOOD SPECIMENOrdering Facility: [facility] Address: [address] [place] [address] Performed By: #### 2 132-9, LIPNF ####[facility]ORATORYCLIA [id number] [place] [address] [place]#### 94185-2, 23171-4 ####[facility]OSPITALWNCLIA [id number] [place] [address] [place] TRIGLYCERIDES, NF 97 mg/dL Normal <150 [facility] Comment on above: Order Comment: Speci men Type: BLOOD SPECIMENOrdering Facility: [facility] Address: [address] [place] [address] Result Comment: <150 mg/dL, Normal 150-199 mg/dL, Borderline high 200-499 mg/dL, High >499 mg/dL, Very high Performed By: #### 2 132-9, LIPNF ####[facility] LABORATORYCLIA [id number] [place] [address] [place]#### 35497-0, 60571-1 ####[facility]ITALLIA [id number] [place] [address] [place] VLDL CHOLESTEROL, NF 19 mg/dL Normal <30 [facility] Comment on above: Order Comment: Speci men Type: BLOOD SPECIMENOrdering Facility: [facility] Address: [address] [place] [address] Performed By: #### 2 132-9, LIPNF ####[facility] LABORATORYCLIA [id number] [address] STATES OF [place]#### 48721-0, 86997-8 ####[facility]ITALLIA [id number] [place] [address] [place] [facility]mCncon 10-23 Magnesium [Mass/Vol] 2.1 mg/dL Normal 1.7-2.3 [facility] Comment on above: Order Comment: Speci men Type: BLOOD SPECIMENOrdering Facility: [facility] Address: [address] [place] [address] Performed By: #### 2 132-9, LIPNF ####[facility] LABORATORYCLIA [id number] [address]#### 16405-5, 62644-5 ####[facility]ITALNCLIA [id number] [address] Vit B12 SerPl-ncon 025 Cobalamin (Vitamin B12) [Mass/Vol] 369 pg/mL Normal 232-1245 [facility] Comment on above: Order Comment: Speci men Type: BLOOD SPECIMENOrdering Facility: [facility] Address: [address] [place] [address] Performed By: #### 2 132-9, LIPNF ####[facility] LABORATORYCLIA [id number] [address]#### 45214-6, 26337-1 ####[facility]ITALNCLIA [id number] [address] CNOVon 08-27-2024 CNOV Office Visit (SPNMED ) CHERYL MARRERO ([id number]) 1945 F Date Time Provider Department 08/27/24 12:40 PM SALMA MEDINA SPNMED During your visit today, we recorded the following information about you: Pulse Respiration Blood pressure Weight 65/minute 16/minute 140/80 73 kg Salma Medina PA-C 08/27/2024 12:53 PM Signed CATHRYN Figueredo [facility] [place] [address] [address] Dear Matthias Dias MD, Cheryl Marrero is a pleasant 79 year old individual who comes in to the office on 08/27/2024 for follow-up regarding the Lumbar spine. Patient is here alone today. Subjective: Compared to the last visit, symptoms have been improved. Ms. Marrero has some pain in middle and lower back but no more pain in hip area afer injection. Has noticed a lot of functional improvement from day to day. Doing more with less pain ROS: Since last visit-patient DENIES fevers, chills, night sweats, unexpected weight loss or gain, abdominal pain, progressive weakness, paralysis, loss of bowel/bladder control, saddle numbness, stumbling gait, loss of coordination. Current Outpatient Medications Medication Sig Dispense Refill tiZANidine (ZANAFLEX) 2 mg tablet Take 1 tablet by mouth every 8 hours as needed. 30 tablet 0 diclofenac (VOLTAREN) 1 % topical gel Apply 2 g to affected area two times a day as needed. 200 g 0 buPROPion XL (WELLBUTRIN XL) 150 mg 24 hr tablet Take 1 tablet by mouth once daily. 90 tablet 3 folic acid 1 mg tablet Take 1 tablet by mouth once daily. 90 tablet 3 lansoprazole (PREVACID) 30 mg capsule Take 1 capsule by mouth once daily. 90 capsule 3 metoprolol succinate ER (TOPROL XL) 25 mg 24 hr tablet Take 1 tablet by mouth two times a day. 180 tablet 3 rosuvastatin (CRESTOR) 5 mg tablet Take 1 tablet by mouth daily at bedtime. 90 tablet 3 ondansetron orally disintegrating (ZOFRAN ODT) 8 mg disintegrating tablet Take 1 tablet by mouth every 8 hours as needed for nausea/vomiting. 30 tablet 5 albuterol HFA (PROAIR HFA) 90 mcg/actuation inhaler Inhale 2 Puffs as instructed every 6 hours as needed. 18 g 11 meclizine (ANTIVERT) 25 mg tab Take 25 mg by mouth three times daily as needed. From [facility] clindamycin (CLEOCIN) 300 mg capsule Take 2 capsules by mouth one hour prior to dental cleaning/procedure 2 capsule 1 ascorbic acid (VITAMIN C ORAL) Take 1 tablet by mouth once daily. 1000mg CPAP polyethylene glycol 3350 (MIRALAX ORAL) Take 1 Tablespoonful by mouth as needed. acetaminophen (TYLENOL) 500 mg tablet Take 2 tablets by mouth every 8 hours as needed. fluticasone (FLONASE) 50 mcg/actuation nasal spray Use 1 [place] in each nostril once daily. vitamin B complex (B COMPLEX 1 ORAL) Take 1 tablet by mouth once daily. cholecalciferol (VITAMIN D3) 1,000 unit tab tablet Take 1,000 Units by mouth once daily. No current facility-administered medications for this visit. Exam: Blood pressure 140/80, pulse 65, resp. rate 16, weight 73 kg (160 lb 15 oz), SpO2 98%. Body mass index is 25.21 kg/m?. Station and Gait: flexed posture and antalgic gait leaning forward Range of Motion: Has diminished balance so we did not fully assess range of motion today Motor: No focal LE weakness today however she does describe intermittent LEFT leg giving out about once a week or so. She has had a knee replacement on that side and has been trying to strengthen up her quadriceps ever since. She went to [facility] ED following a recent fall where she bruised both knees and she had x-rays reportedly done at that time. Sensory: Normal BLE sensory Pain on Palpation: Mild pain on palpation over central lumbosacral junction as well as bilateral PSIS Imaging: The following study/studies were reviewed with the patient during the visit: No new studies were completed but we did review her lumbar MRI study and plain radiographs. She has L4-5 spondylolisthesis with moderate stenosis at L3-4 disc bulge with moderately severe stenosis. Her L4-5 spondylolisthesis does not appear to be significantly mobile through flexion and extension Assessment/Plan: Encounter Diagnosis ICD-10-CM 1. Spinal stenosis of lumbar region with neurogenic claudication M48.062 2. Radiculopathy, lumbar region M54.16 RTC: on an as-needed basis (PRN) Other/Discussion: She will return on an as-needed basis. She may need repeat injection in the future and she understands to expect some baseline low back pain as result of the degenerative findings that we discussed on her x-rays and MRI. She will also continue to strengthen her LLE quadriceps and this will hopefully diminish her likelihood of falling occasionally. Time spent: 23 minutes today with this patient visit. This includes hlmn-um-ebnm time, review of chart records reg (more content not included)... Normal [facility] Brain/Head without Contrasto n 08-19-2024 Brain/Head without Contrast [facility] [place] [address] Brain/Head without Contrast MR#: [id number] Acct: [id number] Name: CHERYL MARRERO Rep #: [id number] : 1945 F 79 From: Lorena lino MD PCP: BILLY Alvarez Status: REG ER Study: Brain/Head without Contrast Date of Exam: 07/27 01/16 Exam# [id number] Ordering Dr: Ephraim Bell MD [id number] STUDY: CT BRAIN WITHOUT CONTRAST REASON FOR EXAM: Female, 79 years old. trauma RADIATION DOSAGE (If Supplied By Facility): CTDIvol = ( 44.99 ) mGy, DLP = ( 779.24 ) mGycm TECHNIQUE: Transaxial CT imaging of the brain was performed without administration of intravenous contrast material. Individualized dose optimization techniques were used for this CT. COMPARISON: 02/12/2023. FINDINGS: Normal soft tissue structures. Normal calvarium. Mild ventricular enlargement commensurate with the degree of sulcal atrophy. Mild low-attenuation changes in the periventricular white matter consistent with microvascular ischemia. Mild involutional changes consistent with the patient''s age. There is no intracranial hemorrhage. There are no findings of an acute ischemic infarction. Normal visualized paranasal sinuses. CT/Brain/Head without Contrast IMPRESSION: No acute findings. Mild microvascular ischemic changes. Electronically Signed: Lorena Ireland MD at 17:18 EST Reading Location ID and State: [id number] / Tel , Service support , CC: Dr. Ephraim Bell MD; BILLY Alvarez [employer]: Signed Normal [facility] Emergency Department Summary on 08-19-2024 Emergency Department Summary [facility] Medical Records Department [address] [place] [address] Emergency Department Summary 08/19/24 MR#: [id number] Acct: [id number] Name: CHERYL MARRERO Rep #: [id number] : 1945 79 From: Ephraim Bell MD PCP: BILLY Alvarez Status:DEP ER Location: ED HPI HPI - Fall History of Present Illness Chief Complaint: Fall Informant: patient Occured/Mechanism Occurred: Today Mechanism/Context: Yes same level fall and Yes trip Usually ambulates: Without assistance Pain/Injury Pain Location: face and lower extremity Quality of Pain: Dull and Aching Current Severity: Mild Maximum Severity: Mild Associated Symptoms Associated Symptoms: Negative for Parasthesias, Weakness, Loss of function, Inability to ambulate, Loss of consciousness or Amnesia Narrative Narrative: 79-year-old female with a history of hypertension and valvular heart disease. Tripped and fell at home landed on a wood floor complaining of bilateral knee pain and her nose and face hurts from where she hit them. No LOC. No blood thinner. No neck or back pain. No chest or abdominal pain. She was not knocked out. She denies recent illness. Said she simply tripped and lost her balance. Prior similar symptoms: No Recent Illness/Hospitalizati on: No PFSH PFSH Medical History Grade I diastolic dysfunction Peripheral neuropathy Iron deficiency anemia Pulmonary HTN Nonrheumatic mitral valve regurgitation IBS (irritable bowel syndrome) GERD (gastroesophageal reflux disease) CAD (coronary artery disease) Seasonal allergies Pulmonary nodules Urge urinary incontinence RAVIN (obstructive sleep apnea) Prosthetic joint infection Osteoarthritis History of gastrointestinal bleeding Diverticulosis Anxiety and depression Asthma Hyperlipidemia HTN (hypertension) Home Medications ???Medication ???Instructions ???Recorded ???Last Taken ???Type acetaminophen 500 mg tablet 1,000 mg (2 x 500 mg) PO Q8H PRN 09/06/21 Unknown Rx PRN Pain Score 1-10 #0 tabs albuterol sulfate 90 mcg/actuation 2 puff inhalation Q6H PRN PRN Sob 09/06/21 Unknown Rx aerosol inhaler (Ventolin HFA) /Or Wheezing #0 grams fluticasone propionate 50 1 spray NASAL DAILY PRN CONGESTION 09/06/21 Unknown Rx mcg/actuation nasal #0 grams spray,suspension ascorbic acid (vitamin C) 500 mg 1,000 mg PO LUNCH Supplement 09/07/21 Unknown History tablet aspirin 81 mg chewable tablet 81 mg PO BREAKFAST Heart 09/07/21 Unknown History cholecalciferol (vitamin D3) 25 50 mcg PO DAILY Supplement 09/07/21 Unknown History mcg (1,000 unit) tablet meloxicam 7.5 mg tablet 7.5 mg PO BID pain 09/07/21 Unknown History rosuvastatin 5 mg tablet (Crestor) 5 mg PO QHS Cholesterol 09/07/21 Unknown History pantoprazole 40 mg tablet,delayed 40 mg PO DAILY GERD 30 days #30 09/25/21 Unknown Rx release tabs bupropion HCl 150 mg 24 hr tablet, 150 mg PO DAILY Mood 30 days #30 10/03/21 Unknown Rx extended release tabs metoprolol succinate 25 mg 25 mg PO BID BP 30 days #60 tabs 10/03/21 Unknown Rx tablet,extended release 24 hr folic acid 1 mg tablet 02/12/23 Unknown History meclizine 25 mg tablet 25 mg PO TID PRN dizziness #15 tabs 02/12/23 Unknown Rx Allergy/AdvReac Type Severity Reaction Status Date / Time vancomycin Allergy Intermediate Other Verified 08/19/24 16:14 Penicillins (PCN) Allergy red/rash Verified 08/19/24 16:14 at injection site promethazine HCl (From Allergy Unknown Verified 08/19/24 16:14 Phenergan) Rdxxhek-JPI-JuX Reductase Allergy Other Verified 08/19/24 16:14 Inhibitor (Vbpjmtm-Vyt-Jya Reductase Inhibitor) Sulfa (Sulfonamide Allergy Swelling Verified 08/19/24 16:14 Antibiotics) Family History Grandfather Cancer paternal GF Grandfather Cancer maternal GF Father CAD (coronary artery disease) Diabetes Grandmother No problems noted. 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 Constitutional Constitutional ED: Denies chills Eyes Eyes: Denies blurry vision ENT ENT ED: Denies ear pain Cardiovascular (more content not included)... Normal [facility] Knee 4 or More Viewson 08-[address] [facility] [address] [place] [address] Knee 4 or More Views MR#: [id number] Acct: [id number] Name: CHERYL MARRERO Rep #: [id number] : 1945 F 79 From: Lorena lino MD PCP: BILLY Alvarez Status: REG ER Study: Knee 4 or More Views Date of Exam: 08/19/24 Exam# [id number] Ordering Dr: Ephraim Bell MD [id number] INDICATION: fall EXAMINATION/TECHNIQUE : X-RAY - RIGHT XR Knee Complete 4 Views or More 4 VIEWS COMPARISON: __ FINDINGS: No acute fracture. Lateral patellar subluxation. No destructive bone changes. Joint spaces are well-maintained. Normal alignment. Soft tissues are unremarkable. No radiopaque foreign body or soft tissue gas. RAD/Knee 4 or More Views IMPRESSION: No acute findings. Electronically Signed: Lorena Ireland MD at 17:13 EST Reading Location ID and State: [id number] / Tel , Service support , CC: Dr. Ephraim eBll MD; BILLY Alvarez [employer]: Signed Normal [facility] Knee [address] [facility] [address] [place] [id number] Knee 4 or More Views MR#: [id number] Acct: [id number] Name: CHERYL MARRERO Rep #: [id number] : 1945 79 From: Lorena lino MD PCP: BILLY Alvarez Status: REG ER Study: Knee 4 or More Views Date of Exam: 08/19/24 Exam# [id number] Ordering Dr: Ephraim Bell MD [id number] INDICATION: fall EXAMINATION/TECHNIQUE : X-RAY - LEFT XR Knee Complete 4 Views or More 4 VIEWS COMPARISON: __ FINDINGS: Prior knee replacement. Tibial prosthesis removed with screw in place. No acute fracture or dislocation. No destructive bone changes. Joint spaces are otherwise maintained. Normal alignment. Soft tissues are unremarkable. No radiopaque foreign body or soft tissue gas. RAD/Knee 4 or More Views IMPRESSION: No acute findings. Electronically Signed: Lorena Ireland MD at 17:09 EST Reading Location ID and State: [id number] / Tel , Service support , CC: Dr. Ephraim Bell MD; BILLY Alvarez [employer]: Signed Normal [facility] Sinus/Facial Boneon 08-19-20 Sinus/Facial Bone [facility] [address] [place] [id number] Sinus/Facial Bone MR#: [id number] Acct: [id number] Name: CHERYL MARRERO Rep #: [id number] : 1945 79 From: Lorena lino MD PCP: BILLY Alvarez Status: REG Study: Sinus/Facial Bone Date of Exam: 08/19/24 Exam# [id number] Ordering Dr: Ephraim Bell MD [id number] EXAM: CT MAXILLOFACIAL WITHOUT INTRAVENOUS CONTRAST CLINICAL INDICATION: left facial trauma and nose TECHNIQUE: Helically acquired images were obtained of the face without intravenous contrast. This CT exam was performed using one or more of the following dose reduction techniques: automated exposure control, adjustment of the mA and/or kV according to patient size, and/or use of iterative reconstruction technique. COMPARISON: No relevant prior studies available. FINDINGS: BONES/JOINTS: Nasal fracture best demonstrated on the sagittal sequence. Degenerative changes of the temporomandibular joints. Rightward nasal septal deviation with mild spurring. Mild narrowing of the ostiomeatal complexes due to mucosal thickening. No discrete lytic or blastic abnormalities. SOFT TISSUES: Unremarkable. No focal subcutaneous swelling. No discrete fluid collections. ORBITS: Visualized globes, extraocular muscles, and retrobulbar fat are unremarkable. SINUSES: Small left junior bullosa. Mild mucosal thickening right maxillary sinus. MASTOID AIR CELLS: Unremarkable as visualized. Clear. DENTAL: No acute findings. No periodontal osseous erosion. CT/Sinus/Facial Bone IMPRESSION: Nasal fracture. Nasal septal deviation. Trace chronic sinusitis. Electronically Signed: Lorena Ireland MD at 17:24 EST Reading Location ID and State: [id number] / Tel , Service support , CC: Dr. Ephraim Bell MD; BILLY Alvarez [employer]: Signed Normal [facility] CNOVon 08-12-2024 CNOV Office Visit (GENSWS ) CHERYL MARRERO ([id number]) 1945 F Date Time Provider Department 08/12/24 1:45 PM DILSHAD GARCIA GENSWS During your visit today, we recorded the following information about you: Pulse Blood pressure Weight 70/minute 120/70 72.6 kg Dilshad Garcia, 08/19/2024 3:11 PM Signed GENERAL SURGERY POST OP FOLLOW UP Patient seen and examined in the clinic for post-operative evaluation following left breast lumpectomy with intra-operative ultrasound guided wire placement on 08/04/2024. Patient states that she has been doing well since surgery. Denies breast pain. Denies nausea, vomiting, diarrhea, constipation. No fevers or chills. Appetite is good. 10 point review of systems completed and is otherwise negative On exam: There were no vitals filed for this visit. Gen: NAD, well-nourished Lungs: unlabored breathing, bilateral chest rise LEFT BREAST: The breast skin and nipple areolar complexes appear normal without retraction or lesions. The periareolar incision is healing well. The nipple is well perfused and healthy. There is no nipple discharge.There is no other dominant mass or clinical abnormality noted in left breast. RIGHT BREAST: The breast skin and nipple areolar complexes appear normal without retraction or lesions. There is no nipple discharge. There is no dominant mass or clinical abnormality noted in right breast. LEFT REGIONAL LYMPH NODES: There is no concerning supraclavicular, infraclavicular or axillary lymphadenopathy RIGHT REGIONAL LYMPH NODES: There is no concerning supraclavicular, infraclavicular or axillary lymphadenopathy The sensitive examination was discussed with the Patient or Patient's Authorized Polyethylene Combiner. As applicable, any other physician, advance practice provider, medical student, or other health professional student that will be observing or involved in the sensitive examination for educational or training purposes was discussed with the Patient or Authorized Polyethylene Combiner. The Patient or Authorized Polyethylene Combiner has agreed to proceed with the sensitive examination. (Sensitive examination includes inspection and/or palpation of the breasts, pelvis, prostate and anorectal regions) Pathology: Component FINAL DIAGNOSIS A. Left breast, lumpectomy: - Multiple intraductal papillomas. - 1 biopsy clip and prior biopsy site identified. There is an ill-defined, white, rubbery biopsy site with Q clip identified within slices 4-5, measuring 0.6 x 0.5 x 0.4 cm. The biopsy site is situated 0.1 cm from the inferior margin, 0.7 cm from the superior margin, 1 cm from the anterior margin, 1.9 cm from the medial margin, and greater than 2 cm from all remaining margins. The surrounding breast tissue is composed of soft, yellow adipose tissue (85%) and white fibrous tissue. There are no other discrete masses or lesions. Assessment ASSESSMENT Subareolar mass of left breast (primary encounter diagnosis) Intraductal papilloma of left breast S/p lumpectomy, left breast RECOMMENDATION -Surveillance mammogram with tomosynthesis in 6 months -Follow-up in office after imaging completed to review results Dilshad Garcia DO August 12, 2024 1:45 PM Allergies As of Date: 08/12/2024 Noted Allergy Reaction PHENERGAN (PROMETHAZINE HCL) 12/16/2009 1 - Mental Status Change 5 - Intolerance GBAXGQI-UJO-QAA REDUCTASE INHIBIT*05/14/2014 14 - Other: See Comments Comments: Elevated liver enzymes in hospital, statins stopped. ADHESIVE 08/02/2011 2 - Rash BREO ELLIPTA (FLUTICASONE FUROATE*04/18/2021 14 - Other: See Comments Comments: Hoarseness/ Shortness of breath PENICILLINS 06/18/2005 14 - Other: See Comments Comments: Local reaction at site of injection ROXICODONE (OXYCODONE) 08/16/2021 5 - Intolerance Comments: Severe nausea and lightheadness SULFA (SULFONAMIDE ANTIBIOTICS) 06/18/2005 VANCOMYCIN 10/05/2021 14 - Other: See Comments Comments: redness Date Reviewed: 08/12/2024 Reviewed by: Nell Olguin LPN - Fully Assessed Reason for Visit: Follow Up [171] Cmt: excision of lesion of left breast Primary Visit Diagnosis:Subareolar mass of left breast [N63.42] Other Visit Diagnoses: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 - diclofenac (VOLTAREN) 1 % topical gel Apply 2 g to affected area two times a day as needed. - buPROPion XL (WELLBUTRIN XL) 150 mg 24 hr tablet Take 1 tablet by mouth once daily. - folic acid 1 mg tablet Take 1 tablet by mouth once daily. - lansoprazole (PREVACID) 30 mg capsule Take 1 capsule by mouth once daily. - metoprolol succinate ER (TOPROL XL) 25 mg 24 hr ta (more content not included)... Normal [facility] ANES POSTPROC EVALon 024 ANES POSTPROC EVAL HNO ID: [id number] Author: JOI MAYFIELD MD Service: ? 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 Post Anesthesia Patient Status Patient Evaluation: bedside. Anticipated Disposition: phase 2 then home. Neurological Status: aware and responsive. Pulmonary Status: breathing comfortably on room air Airway Control: returned to baseline unsupported. Cardiovascular Status: stable. Pain Management: clinically adequate Postoperative Hydration: acceptable. Intraoperative Events: no significant anesthesia events Post Operative Nausea/Vomiting Status: no significant post operative nausea or vomiting Recommendation: continue current plan of care. Anesthesia Observations No Documentation SIGNATURE: Joi Mayfield MD PATIENT NAME: Cheryl Marrero DATE: August 04, 2024 TIME: 11:05 AM CSN: [id number] [facility] ANES PRE-OPon 08-04-2024 ANES PRE-OP HNO ID: [id number] Author: JOI MAYFIELD MD Service: ? Author Type: Anesthesiologist Type: Anesthesia Preprocedure Evaluation Filed: 08/04/2024 07:28 Note Text: ANESTHESIOLOGY DAY OF SURGERY NOTE : 1945 Procedure Information Date/Time: 08/04/24729 Procedure: LUMPECTOMY BREAST (Left: Breast) Location: MD OR02 / MD OR Surgeons: Dilshad Garcia DO Estimated body mass index is 25.84 kg/m? as calculated from the following: Height as of this encounter: 170.2 cm (5' 7). Weight as of this encounter: 74.8 kg (165 lb). Most recent hematocrit and potassium results: Hematocrit 36.0 07/31/2024 Potassium 4.2 07/31/2024 Relevant Problems ANESTHESIA (+) Obstructive sleep apnea CARDIO (+) 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) (+) Internal hemorrhoids without mention of complication (+) Mild pulmonary hypertension (HCC) (+) Non-rheumatic mitral regurgitation GI (+) GERD (gastroesophageal reflux disease) -RENAL (+) Stage 3b chronic kidney disease (HCC) PULMONARY (+) Mild persistent asthma without complication (+) Obstructive sleep apnea (+) SOB (shortness of breath) I - PHYSICAL EVALUATION AIRWAY Patient intubated: No. Tracheostomy tube not present Mallampati: II. TM distance: >3 FB. Neck ROM: full ROM without neurological symptoms. Mouth opening: adequate. Short neck: no. Thick neck: no Gaspar present: no DENTAL Dental findings: teeth intact. Additional exam findings: yes. CARDIOVASCULAR Rhythm: regular Rate: normal PULMONARY Breath sounds clear to auscultation. II - ANESTHESIA PLAN ASA Score: 3 Anesthetic Plan: general Airway type: LMA The patient is not a current smoker. NPO Status: adequate [place] Monitoring Plan Monitoring plan: standard ASA. Post Procedure Analgesic Plan Postoperative analgesic plan: multimodal analgesia. Informed Consent Anesthetic risks, benefits, alternatives, personnel and consent discussed: yes. Patient / Responsible Green Party agrees to proceed: yes Patient / Surrogate agrees to blood products: Yes DNR status not reviewed with patient and/or family prior to surgery. Significant changes in the patient condition since the History and Physical, not otherwise documented in primary service progress note: no. Potential Anesthesia issues that may suggest increased risk of complications or contraindication to planned procedure: none. Vitals Value Taken Time BP 192/87 08/04/24625 Pulse 57 08/04/24625 Resp 18 08/04/24625 Temp 36.6 ?C (97.9 ?F) 08/04/24625 SpO2 98 % 08/04/24625 Facility-Administered Medications as of 08/04/2024 Medication Dose Route Frequency lidocaine (PF) 10 mg/mL (1 %) 1-2 mg injection (XYLOCAINE) 0.1-0.2 mL INTRADERMAL PRN NaCl 0.9% iv flush bag 20 mL INTRAVENOUS PRN clindamycin iv piggyback 900 mg in D5W 50 mL (CLEOCIN) 900 mg INTRAVENOUS Pre-Op Once [COMPLETED] acetaminophen 1,000 mg tab(s) (TYLENOL) 1,000 mg ORAL Pre-Op Once [COMPLETED] famotidine 20 mg injection (PEPCID) 20 mg INTRAVENOUS ONCE lactated ringers iv infusion 5-30 mL/hr INTRAVENOUS CONTINUOUS Outpatient Medications as of 08/04/2024 Medication Sig buPROPion XL (WELLBUTRIN XL) 150 mg 24 hr tablet Take 1 tablet by mouth once daily. folic acid 1 mg tablet Take 1 tablet by mouth once daily. lansoprazole (PREVACID) 30 mg capsule Take 1 capsule by mouth once daily. metoprolol succinate ER (TOPROL XL) 25 mg 24 hr tablet Take 1 tablet by mouth two times a day. rosuvastatin (CRESTOR) 5 mg tablet Take 1 tablet by mouth daily at bedtime. tiZANidine (ZANAFLEX) 2 mg tablet Take 1 tablet by mouth every 8 hours as needed. diclofenac (VOLTAREN) 1 % topical gel Apply 2 g to affected area two times a day as needed. ondansetron orally disintegrating (ZOFRAN ODT) 8 mg disintegrating tablet Take 1 tablet by mouth every 8 hours as needed for nausea/vomiting. albuterol HFA (PROAIR HFA) 90 mcg/actuation inhaler Inhale 2 Puffs as instructed every 6 hours as needed. meclizine (ANTIVERT) 25 mg tab Take 25 mg by mouth three times daily as needed. From [facility] clindamycin (CLEOCIN) 300 mg capsule Take 2 capsules by mouth one hour prior to dental cleaning/procedure ascorbic acid (VITAMIN C ORAL) Take 1 tablet by mouth once daily. 1000mg CPAP polyethylene glycol 3350 (MIRALAX ORAL) Take 1 Tablespoonful by mouth as needed. acetaminophen (TYLENOL) 500 mg tablet Take 2 tablets by mouth every 8 hours as needed. fluticasone (FLONASE) 50 mcg/actuation nasal spray Use 1 [place] in each nostril once daily. vitamin B complex (B COMPLEX 1 ORAL) Take 1 tablet by mouth once daily. cholecalciferol (VITAMIN D3) 1,000 unit tab tablet Take 1,000 Units by mouth once daily. I have interviewed and examined the patient. I have reviewed the medical record and/or the pre-anesthesia evaluation, pertinent labs, and test results. This contains updated information obtained within 48 hours (more content not included)... [facility] BRIEF OP NOTon 08-04-2024 BRIEF OP NOT HNO ID: [id number] Author: DILSHAD GARCIA DO Service: General Surgery Author Type: Physician Type: Brief Op Note Filed: 08/04/2024 10:20 Note Text: BRIEF OPERATIVE / PROCEDURE NOTE LOG ID: [id number] SURGERY/PROCEDURE DATE: 08/04/2024 INCISION/PROCEDURE START TIME: 8:12 AM INCISION CLOSE/PROCEDURE END TIME: 9:36 AM SURGEON(S)/PROCEDURAL IST(S) AND SHAPING MACHINE TENDER(S): Surgeons and Role: * Dilshad Garcia DO - Primary * Maura Aguila DO - Resident - Assisting Nurse Practitioner: Brunilda Gutierrez APRN.CNP SURGERY/PROCEDURE(S): Left breast lumpectomy with intra-operative ultrasound guided wire placement ANESTHESIA: General FINDINGS: Left breast retro-areolar lumpectomy specimen measured approximately 2cm x 3cm x 2cm and containing clip and wire on xray ESTIMATED BLOOD LOSS: 15cc SPECIMENS: ID Type Source Tests Collected by Time Destination A : nylon suture short superior, long lateral, vicryl suture medial Tissue Breast, Left, Lumpectomy SURGICAL PATHOLOGY Dilshad Garcia DO 08/04/2024 7:52 AM COMPLICATIONS: None CLOSURE TECHNIQUE: Primary PRE-OP/PRE-PROCEDURE DIAGNOSIS: Left breast intraductal papilloma POST-OP/POST-PROCEDUR E DIAGNOSIS: Same as Preop Patient was accompanied to the next level of care by a licensed practitioner from the surgical team pending completion of this brief op note (or operative note) SIGNATURE: Dilshad Garcia DO PATIENT NAME: Cheryl Marrero DATE: August 04, 2024 TIME: 9:32 AM [facility] SURGICAL BREAST SPECIMEN LTon 08-04-2024 [facility] SURGICAL BREAST SPECIMEN LT * * *Final Report* * * DATE OF EXAM: Aug 04 2024 9:01AM RONI [id number] - [facility] SURGICAL BREAST SPECIMEN LT / PROCEDURE REASON: lumpectomy * * * * Physician Interpretation * * * * [place] [address] HISTORY: Left Specimen Radiograph COMPARISON: 10/03/2022 (mammogram), 04/17/2023 (mammogram), 06/17/2024 (mammogram), 06/17/2024 (ultrasound) and 07/07/2024 (mammogram). FINDINGS: A single image of the lumpectomy specimen demonstrates a wire and a Q biopsy marker in the specimen. IMPRESSION: SPECIMEN A single image of the lumpectomy specimen demonstrates a wire and a Q biopsy marker in the specimen. COMMUNICATION: Urgent Results: The results of the specimen radiograph were discussed with Dr. Dilshad Garcia in the O.R. On 08/04/2024 at 904am. [employer]: PAT Transcribe Date/Time: Aug 04 2024 8:59A Dictated by : GEETA GLEASON MD This examination was interpreted and the report reviewed and electronically signed by: GEETA GLEASON MD on Aug 04 2024 9:19AM EST [id number] [facility] OPERATIVE NOon 08-04-2024 OPERATIVE NO HNO ID: [id number] Author: DILSHAD GARCIA DO Service: General Surgery Author Type: Physician Type: Operative Report Filed: 08/04/2024 20:33 Note Text: OPERATIVE/PROCEDURE REPORT LOG ID: [id number] SURGERY/PROCEDURE DATE: 08/04/2024 INCISION/PROCEDURE START TIME: 8:12 AM INCISION CLOSE/PROCEDURE END TIME: 9:48 AM SURGEON(S)/PROCEDURAL IST(S) AND SHAPING MACHINE TENDER(S): Surgeons and Role: * iDlshad Garcia DO - Primary * Maura Aguila DO - Resident - Assisting Nurse Practitioner: Brunilda Gutierrez APRN.CNP SURGERY/PROCEDURE(S): Left breast lumpectomy with intra-operative ultrasound guided wire placement ANESTHESIA: General INDICATION: 79 year old female presented to clinic on 06/24/2024 with history of non-bloody nipple discharge from the left breast and mammogram finding of left breast hypoechoic lesion measuring 0.5cm x 0.5cm x 0.4cm in the anterior depth of the left breast at 9 o'clock position. She underwent a breast biopsy with radiology and the pathology reported intraductal papilloma. We discussed that this is a high risk lesion and recommended lumpectomy with targeted duct excision. We also discussed ultrasound guided intra-operative wire placement vs FLASH patrol man placement for mass localization and the patient requested intra-operative wire localization. All risks, benefits, alternatives, and possible complications for the left breast lumpectomy were discussed with the patient and she provided consent to proceed with the operation. SURGERY/PROCEDURE DETAILS: The patient was identified in the pre-operative area and a sign-in huddle was performed confirming the left side as the correct side. She was transported to the operating room and transferred to the OR table in the supine position. General anesthesia was induced without difficulty. A bedside ultrasound of the left breast was performed and the subareolar mass was identified. A wire was then placed under ultrasound guidance to assist with dissection and localization of the mass. The left breast was prepped and draped in the usual sterile fashion. A final timeout was performed. A periareolar incision was created from 9 o'clock to 2 o'clock position. Metzenbaum scissors and limited electrocautery were used to dissect the breast tissue and skin flaps were elevated circumferentially. The tissue below the nipple was dissected using iris scissors. The specimen was marked with vicryl suture medially, nylon short suture superior, and nylon long suture lateral. The specimen was then sent to radiology, which confirmed the presence of the biopsy blip within the specimen. The cavity was irrigated, aspirated, and hemostasis was achieved. The incision was closed in layers with 3-0 Vicryl suture in an oncoplastic reconstruction. The skin was closed with running 4-0 vicryl suture. Skin glue was applied as dressing. A surgical bra was then placed for additional support. Patient awoke from general anesthesia without difficulty, was transferred to the recovery area in stable condition. All sponge, needle, and instrument counts were correct at the end of the procedure. FINDINGS: Left breast retro-areolar lumpectomy specimen measured approximately 2cm x 3cm x 2cm and containing clip and wire on xray PRE-OP/PRE-PROCEDURE DIAGNOSIS: Left breast intraductal papilloma POST-OP/POST-PROCEDUR E DIAGNOSIS: Same as Preop ESTIMATED BLOOD LOSS: 15 mls SPECIMENS: ID Type Source Tests Collected by Time Destination A : nylon suture short superior, long lateral, vicryl suture medial Tissue Breast, Left, Lumpectomy SURGICAL PATHOLOGY Dilshad Garcia DO 08/04/2024 7:52 AM IMPLANTABLE DEVICES: NONE DRAINS: None COMPLICATIONS: None CLOSURE TECHNIQUE: Primary PARTICIPATION IN SURGERY/PROCEDURE: Resident performed portions of the procedure , under direct supervision and the remainder of the procedure was performed by the primary surgeon/proceduralist with assistance. SIGNATURE: Dilshad Garcia DO PATIENT NAME: Cheryl Marrero DATE: August 04, 2024 TIME: 10:18 AM Normal [facility] SURGICAL PATHOLOGYon 024 CASE REPORT Normal [facility] Comment on above: Order Comment: Speci men Type: TISSUE SPECIMEN Ordering Facility: [facility] Address: [address] [place] [address] Result Comment: Surg [facility] Pathology Report Case: [id number] Authorizing Provider: Dilshad Garcia DO Collected: 08/04/2024 07:52 AM Ordering Location: [facility] Surgery Received: 08/04/2024 10:51 AM Pathologist: Carmina Guerra MD Specimen: Breast, Left, Lumpectomy, nylon suture short superior, long lateral, vicryl suture medial Performed By: #### S #### [facility] CLIA [id number] [address] [place] CLINICAL HISTORY Normal [facility] Comment on above: Order Comment: Speci men Type: TISSUE SPECIMEN Ordering Facility: [facility] Address: [address] [place] [address] Result Comment: Pre- op diagnosis: Subareolar mass of left breast [N63.42] 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 L eft breast, lumpectomy: - Multiple intraductal papillomas. - 1 biopsy clip and prior biopsy site identified. Performed By: #### S #### [facility] CLIA [id number] [address] [place] [address] OF [facility] FINAL PERFORMING LAB [facility] Comment on above: Order Comment: Speci men Type: TISSUE SPECIMEN Ordering Facility: [facility] Address: [address] [place] [address] Result Comment: Diag nostic interpretation performed at [facility], [address] [place] [address] CLIA# [id number] Rn Or Lvn: Donaldo Hewitt M.D. Performed By: #### S #### [facility] CLIA [id number] [address] [place] [address] [place] GROSS DESCRIPTION [facility] Comment on above: Order Comment: Speci men Type: TISSUE SPECIMEN Ordering Facility: [facility] Address: [address] [place] [address] Result Comment: A. B reast, Left, Lumpectomy Received in formalin in a Ele device labeled breast, left, lumpectomy is an oriented excision of fibroadipose tissue, measuring 5.5 cm (medial-lateral) by 4.5 cm (anterior-posterior) by 1.8 cm (superior-inferior) and weighing 14.9 g. The specimen is oriented per the requisition as short suture-superior, long suture-lateral, and vicryl suture-medial. The specimen radiograph reveals a single biopsy clip and needle localizing wire. The specimen is inked: Superior margin-blue, inferior margin-green, medial margin-orange, lateral margin-red, anterior margin-yellow, and posterior margin-black. The specimen is sectioned from medial to lateral into 13 slices. There is an ill-defined, white, rubbery biopsy site with Q clip identified within slices 4-5, measuring 0.6 x 0.5 x 0.4 cm. The biopsy site is situated 0.1 cm from the inferior margin, 0.7 cm from the superior margin, 1 cm from the anterior margin, 1.9 cm from the medial margin, and greater than 2 cm from all remaining margins. The surrounding breast tissue is composed of soft, yellow adipose tissue (85%) and white fibrous tissue. There are no other discrete masses or lesions. The specimen was removed from the patient on August 04, 2024 at 8:50 AM and placed in formalin at 10:01 AM. Entirely submitted as follows: A1. Slice 1 medial margin A2. Slice 2 anterior, superior, inferior margins A3. Slice 2 posterior, superior, inferior margins A4. Slice 3 flanking and anterior, superior, inferior margins A5. Slice 3 flanking and posterior, superior, inferior margins A6. Slice 4 biopsy site and anterior, superior, inferior margins A7. Slice 4 biopsy site and posterior, superior, inferior margins A8. Slice 5 biopsy site and anterior, superior, inferior margins A9. Slice 5 biopsy site and posterior, superior, inferior margins A10. Slice 6 flanking and anterior, superior, inferior margins A11. Slice 6 flanking and posterior, superior, inferior margins A12. Slice 7 anterior, superior, inferior margins A13. Slice 7 posterior, superior, inferior margins A14. Slice 8 anterior, superior, inferior, posterior margins A15. Slice 9 anterior, superior, inferior, posterior margins A16. Slice 10 anterior, superior, inferior, posterior margins A17. Slice 11 anterior, superior, inferior, posterior margins A18. Slice 12 anterior, superior, inferior, posterior margins A19. Slice 13 lateral margin OPAL August 05, 2024 8:13 AM Gross examination performed at [facility], [address] [place], [place] [id number] Performed By: #### S #### [facility] CLIA [id number] [address] [place] [address] DESK [id number] [address] [place] ECG COMPLETEon 08-03-2024 Atrial Rate 59 BPM [facility] Calculated P [place] 90 degrees [facility] Calculated R [place] -2 degrees [facility] Calculated T [place] -9 degrees [facility] P-R Interval 128 ms [facility] QRS Duration 84 ms [facility] QT Interval 406 ms [facility] QTC Calculation (Bazett) 401 ms [facility] Ventricular Rate 59 BPM [facility] SINUS BRADYCARDIA WITH PREMATURE ATRIAL COMPLEXES OTHERWISE NORMAL ECG Confirmed by MD RIBEIRO GREGORY () on 08/03/2024 9:16:53 AM [facility] NAME : CHERYL MARRERO PID : [id number] : 1945 Gender : Female Race : ORD : Procedure Date : Jul 31 2024 17:08:23 Edit Date : Aug 03 2024 09:16:54 Diagnosis: SINUS BRADYCARDIA WITH PREMATURE ATRIAL COMPLEXES OTHERWISE NORMAL ECG Confirmed by MD RIBEIRO GREGORY () on 08/03/2024 9:16:53 AM Test Reason : Location : 636 : [facility] Overread By : MD RIBEIRO GREGORY Edited By : MD RIBEIRO GREGORY Referred By : DILSHAD GARCIA Acquired by : tash, [facility] Comprehensive metabolic 2000 panelon 08-01-2024 Albumin [Mass/Vol] 4.2 g/dL 3.9 - 4.9 g/dL [facility] ALP [Catalytic activity/Vol] 79 U/L 34 - 123 U/L [facility] ALT [Catalytic activity/Vol] 10 U/L 7 - 38 U/L [facility] Anion gap [Moles/Vol] 11 mmol/L 8 - 15 mmol/L [facility] AST [Catalytic activity/Vol] 14 U/L 13 - 35 U/L [facility] Bilirubin [Mass/Vol] 0.2 mg/dL 0.2 - 1 .3 mg/dL [facility] Calcium [Mass/Vol] 9.7 mg/dL 8.5 - 10. 2 mg/dL [facility] Chloride [Moles/Vol] 104 mmol/L 98 - 10 7 mmol/L [facility] CO2 [Moles/Vol] 27 mmol/L 22 - 30 mmol/L [facility] Creatinine [Mass/Vol] 1.45 mg/dL High 0.58 - 0.96 mg/dL [facility] GFR/1.73 sq M.predicted among non-blacks MDRD (S/P/Bld) [Vol rate/Area] 37 mL/min/{1.73_m2} Low - PINF [facility] Comment on above: Estimated Glomerular Filtration Rate (eGFR) is calculated using the 2020 CKD-EPI creatinine equation. This equation utilizes serum creatinine, sex, and age as parameters. The creatinine assay has traceable calibration to isotope dilution-mass spectrometry. Refer to KDIGO guidelines for clinical interpretation. In patients with unstable renal function, e.g. those with acute kidney injury, the eGFR may not accurately reflect actual GFR. Glucose [Mass/Vol] 85 mg/dL 74 - 99 mg/dL [facility] Comment on above: The [place] Di[employer] s Association (ADA) provides guidance for cutoff values for fasting glucose and random glucose. The ADA defines fasting as no caloric intake for at least 8 hours. Fasting plasma glucose results between 100 to 125 mg/dL indicate increased risk for diabetes (prediabetes). Fasting plasma glucose results greater than or equal to 126 mg/dL meet the criteria for diagnosis of diabetes. In the absence of unequivocal hyperglycemia, results should be confirmed by repeat testing. In a patient with classic symptoms of hyperglycemia or hyperglycemic crisis, random plasma glucose results greater than or equal to 200 mg/dL meet the criteria for diagnosis of diabetes. Reference: Standards of Medical Care in Diabetes 2016, [place] [employer]. Diabetes Care. 2016.39(Suppl 1). Interpretation and review of laboratory results Abnormal [facility] Potassium [Moles/Vol] 4.2 mmol/L 3.7 - 5.1 mmol/L [facility] Protein [Mass/Vol] 7.1 g/dL 6.3 - 8.0 g/dL [facility] Sodium [Moles/Vol] 142 mmol/L 136 - 144 mmol/L [facility] Urea nitrogen [Mass/Vol] 23 mg/dL High 7 - 21 mg/dL [facility] CBC W Auto Differential pane l (Bld)on 07-31-2024 Basophils (Bld) [#/Vol] 0.04 10*3/uL [facility] Basophils/100 WBC (Bld) 0.6 % C [facility] Differential cell count method Nom (Bld) Auto [facility] Eosinophils (Bld) [#/Vol] 0.12 10*3/uL [facility] Eosinophils/100 WBC (Bld) 1.7 % [facility] Erythrocyte distribution width (RBC) [Ratio] 14.6 % 11.5 - 15.0 % [facility] Hematocrit (Bld) [Volume fraction] 36.0 % 36.0 - 46.0 % [facility] Hemoglobin (Bld) [Mass/Vol] 11.3 g/dL Low 11.5 - 15.5 g/dL [facility] Immature granulocytes (Bld) [#/Vol] 0.03 10*3/uL [facility] Immature granulocytes/100 WBC (Bld) 0.4 % [facility] Interpretation and review of laboratory results Abnormal [facility] Lymphocytes (Bld) [#/Vol] 1.53 10*3/uL [facility] Lymphocytes/100 WBC (Bld) 21.2 % [facility] MCH (RBC) [Entitic mass] 27.6 pg 26.0 - 34.0 pg [facility] MCHC (RBC) [Mass/Vol] 31.4 g/dL 30.5 - 36.0 g/dL [facility] MCV (RBC) [Entitic vol] 88.0 fL 80.0 - 100.0 fL [facility] Monocytes (Bld) [#/Vol] 0.49 10*3/uL [facility] Monocytes/100 WBC (Bld) 6.8 % C [facility] Neutrophils (Bld) [#/Vol] 5.00 10*3/uL [facility] Neutrophils/100 WBC (Bld) 69.3 % [facility] Nucleated RBC (Bld) [#/Vol] [facility] Nucleated RBC/100 WBC (Bld) [Ratio] 0.0 % /100 WBC [facility] Platelet mean volume (Bld) [Entitic vol] 9.0 fL 9.0 - 12.7 fL [facility] Platelets (Bld) [#/Vol] 299 10*3/uL [facility] RBC (Bld) [#/Vol] 4.09 10*6/uL 3.90 - 5.2 0 m/uL [facility] WBC (Bld) [#/Vol] 7.21 10*3/uL [facility] Basophils (Bld) [#/Vol] 0.04 10*3/uL Normal <0.11 [facility] Comment on above: Order Comment: Speci men Type: BLOOD SPECIMENOrdering Facility: [facility] Address: [address] [place] [address] Performed By: #### 5 7021-8 ####[facility] MILLWNCLIA [id number] [place] [address] [place] Basophils/100 WBC (Bld) 0.6 % Normal C [facility] Comment on above: Order Comment: Speci men Type: BLOOD SPECIMENOrdering Facility: [facility] Address: [address] [place] [address] Performed By: #### 5 7021-8 ####[facility] MILLWNCLIA [id number] [place] [address] [place] Differential cell count method Nom (Bld) Auto Normal [facility] Comment on above: Order Comment: Speci men Type: BLOOD SPECIMENOrdering Facility: [facility] Address: [address] [place] [address] Performed By: #### 5 7021-8 ####[facility] MILLTOWNCLIA [id number] [place] [address] [place] Eosinophils (Bld) [#/Vol] 0.12 10*3/uL Normal <0.46 [facility] Comment on above: Order Comment: Speci men Type: BLOOD SPECIMENOrdering Facility: [facility] Address: [address] [place] [address] Performed By: #### 5 7021-8 ####[facility] MILLTOWNCLIA [id number] [place] [address] [place] Eosinophils/100 WBC (Bld) 1.7 % Normal [facility] Comment on above: Order Comment: Speci men Type: BLOOD SPECIMENOrdering Facility: [facility] Address: [address] [place] [address] Performed By: #### 5 7021-8 ####[facility]ITALTIFFANIE [id number] [place] [address] [place] Erythrocyte distribution width (RBC) [Ratio] 14.6 % Normal 11.5-15.0 [facility] Comment on above: Order Comment: Speci men Type: BLOOD SPECIMENOrdering Facility: [facility] Address: [address] [place] [address] Performed By: #### 5 7021-8 ####[facility]ITAL[facility]FFANIE [id number] [place] [address] [place] Hematocrit (Bld) [Volume fraction] 36.0 % Normal 36.0-46.0 [facility] Comment on above: Order Comment: Speci men Type: BLOOD SPECIMENOrdering Facility: [facility] Address: [address] [place] [address] Performed By: #### 5 7021-8 ####[facility]ITAL[facility]IE [id number] [place] [address] [place] Hemoglobin (Bld) [Mass/Vol] 11.3 g/dL Low 11.5-15.5 [facility] Comment on above: Order Comment: Speci men Type: BLOOD SPECIMENOrdering Facility: [facility] Address: [address] [place] [address] Performed By: #### 5 7021-8 ####[facility]ITALNCLI [id number] [place] [address] [place] Immature granulocytes (Bld) [#/Vol] 0.03 10*3/uL Normal <0.10 [facility] Comment on above: Order Comment: Speci men Type: BLOOD SPECIMENOrdering Facility: [facility] Address: [address] [place] [address] Performed By: #### 5 7021-8 ####[facility] H[facility]PITALLIA [id number] [place] [address] [place] Immature granulocytes/100 WBC (Bld) 0.4 % Normal [facility] Comment on above: Order Comment: Speci men Type: BLOOD SPECIMENOrdering Facility: [facility] Address: [address] [place] [address] Performed By: #### 5 7021-8 ####[facility] [id number] [place] [address] [place] Lymphocytes (Bld) [#/Vol] 1.53 10*3/uL Normal 1.00-4.00 [facility] Comment on above: Order Comment: Speci men Type: BLOOD SPECIMENOrdering Facility: [facility] Address: [address] [place] [address] Performed By: #### 5 7021-8 ####[facility] [id number] [place] [address] [place] Lymphocytes/100 WBC (Bld) 21.2 % Normal [facility] Comment on above: Order Comment: Speci men Type: BLOOD SPECIMENOrdering Facility: [facility] Address: [address] [place] [address] Performed By: #### 5 7021-8 ####[facility] [id number] [place] [address] [place] MCH (RBC) [Entitic mass] 27.6 pg Normal 26.0-34.0 [facility] Comment on above: Order Comment: Speci men Type: BLOOD SPECIMENOrdering Facility: [facility] Address: [address] [place] [address] Performed By: #### 5 7021-8 ####[facility] BEBOWNCLIA [id number] [place] [address] [place] MCHC (RBC) [Mass/Vol] 31.4 g/dL Normal 30.5-36.0 [facility] Comment on above: Order Comment: Speci men Type: BLOOD SPECIMENOrdering Facility: [facility] Address: [address] [place] [address] Performed By: #### 5 7021-8 ####[facility]ITALNCLIA [id number] [place] [address] [place] MCV (RBC) [Entitic vol] 88.0 fL Normal 80.0-100.0 C [facility] Comment on above: Order Comment: Speci men Type: BLOOD SPECIMENOrdering Facility: [facility] Address: [address] [place] [address] Performed By: #### 5 7021-8 ####[facility] HOSPITALLIA [id number] [place] [address] [place] Monocytes (Bld) [#/Vol] 0.49 10*3/uL Normal <0.87 [facility] Comment on above: Order Comment: Speci men Type: BLOOD SPECIMENOrdering Facility: [facility] Address: [address] [place] [address] Performed By: #### 5 7021-8 ####[facility]ITALNCLIA [id number] [place] [address] [place] Monocytes/100 WBC (Bld) 6.8 % Normal C [facility] Comment on above: Order Comment: Speci men Type: BLOOD SPECIMENOrdering Facility: [facility] Address: [address] [place] [address] Performed By: #### 5 7021-8 ####[facility]ITALNCLI [id number] [place] [address] [place] Neutrophils (Bld) [#/Vol] 5.00 10*3/uL Normal 1.45-7.50 [facility] Comment on above: Order Comment: Speci men Type: BLOOD SPECIMENOrdering Facility: [facility] Address: [address] [place] [address] Performed By: #### 5 7021-8 ####[facility]PITALWTXLIA [id number] [place] [address] [place] Neutrophils/100 WBC (Bld) 69.3 % Normal [facility] Comment on above: Order Comment: Speci men Type: BLOOD SPECIMENOrdering Facility: [facility] Address: [address] [place] [address] Performed By: #### 5 7021-8 ####[facility] [id number] [place] [address] [place] Nucleated RBC (Bld) [#/Vol] 10*3/uL Normal <0.01 [facility] Comment on above: Order Comment: Speci men Type: BLOOD SPECIMENOrdering Facility: [facility] Address: [address] [place] [address] Performed By: #### 5 7021-8 ####[facility] [id number] [place] [address] [place] Nucleated RBC/100 WBC (Bld) [Ratio] 0.0 /100 WBC Normal [facility] Comment on above: Order Comment: Speci men Type: BLOOD SPECIMENOrdering Facility: [facility] Address: [address] [place] [address] Performed By: #### 5 7021-8 ####[facility] HOSPITALLI [id number] [place] [address] [place] Platelet mean volume (Bld) [Entitic vol] 9.0 fL Normal 9.0-12.7 [facility] Comment on above: Order Comment: Speci men Type: BLOOD SPECIMENOrdering Facility: [facility] Address: [address] [place] [address] Performed By: #### 5 7021-8 ####[facility] OLEKSANDRNCLIA [id number] [place] [address] [place] Platelets (Bld) [#/Vol] 299 10*3/uL Normal 150-400 [facility] Comment on above: Order Comment: Speci men Type: BLOOD SPECIMENOrdering Facility: [facility] Address: [address] [place] [address] Performed By: #### 5 7021-8 ####[facility]ITALNCLIA [id number] [place] [address] [place] RBC (Bld) [#/Vol] 4.09 10*6/uL Normal 3.90-5.20 [facility] Comment on above: Order Comment: Speci men Type: BLOOD SPECIMENOrdering Facility: [facility] Address: [address] [place] [address] Performed By: #### 5 7021-8 ####[facility]ITALNCLIA [id number] [place] [address] [place] WBC (Bld) [#/Vol] 7.21 10*3/uL Normal 3.70-11.00 [facility] Comment on above: Order Comment: Speci men Type: BLOOD SPECIMENOrdering Facility: [facility] Address: [address] [place] [address] Performed By: #### 5 7021-8 ####[facility]ITALNCLIA [id number] [place] [address] [place] Comprehensive metabolic 2000 panelon 07-31-2024 Albumin [Mass/Vol] 4.2 g/dL Normal 3.9-4.9 [facility] Comment on above: Order Comment: Speci men Type: BLOOD SPECIMENOrdering Facility: [facility] Address: [address] [place] [id number] Performed By: #### 2 4323-8 ####[facility] LABCLIA [id number] [place] [address] [place] ALP [Catalytic activity/Vol] 79 U/L Normal 34-123 [facility] Comment on above: Order Comment: Speci men Type: BLOOD SPECIMENOrdering Facility: [facility] Address: [address] [place] [address] Performed By: #### 2 4323-8 ####[facility] LABCLIA [id number] [place] [address] [place] ALT [Catalytic activity/Vol] 10 U/L Normal 7-38 [facility] Comment on above: Order Comment: Speci men Type: BLOOD SPECIMENOrdering Facility: [facility] Address: [address] [place] [address] Performed By: #### 2 4323-8 ####[facility] LABCLIA [id number] [place] [address] [place] Anion gap [Moles/Vol] 11 mmol/L Normal 8-15 [facility] Comment on above: Order Comment: Speci men Type: BLOOD SPECIMENOrdering Facility: [facility] Address: [address] [place] [address] Performed By: #### 2 4323-8 ####[facility] LABCLIA [id number] [place] [id number] [place] AST [Catalytic activity/Vol] 14 U/L Normal 13-35 [facility] Comment on above: Order Comment: Speci men Type: BLOOD SPECIMENOrdering Facility: [facility] Address: [address] [place], [place] [address] Performed By: #### 2 4323-8 ####[facility] LABCLIA [id number] [place] [address] [place] Bilirubin [Mass/Vol] 0.2 mg/dL Normal 0.2-1.3 [facility] Comment on above: Order Comment: Speci men Type: BLOOD SPECIMENOrdering Facility: [facility] Address: [address] [place] [address] Performed By: #### 2 4323-8 ####[facility] LABCLIA [id number] [place] [address] [place] Calcium [Mass/Vol] 9.7 mg/dL Normal 8.5-10.2 [facility] Comment on above: Order Comment: Speci men Type: BLOOD SPECIMENOrdering Facility: [facility] Address: [address] [place] [address] Performed By: #### 2 4323-8 ####[facility] LABCLIA [id number] [place] [address] [place] Chloride [Moles/Vol] 104 mmol/L Normal 98-107 [facility] Comment on above: Order Comment: Speci men Type: BLOOD SPECIMENOrdering Facility: [facility] Address: [address] [place] [address] Performed By: #### 2 4323-8 ####[facility] LABCLIA [id number] [place] [address] [place] CO2 [Moles/Vol] 27 mmol/L Normal 22-30 [facility] Comment on above: Order Comment: Speci men Type: BLOOD SPECIMENOrdering Facility: [facility] Address: [address] [place], [place] [address] Performed By: #### 2 4323-8 ####[facility] LABCLIA [id number] [place] [address] [place] Creatinine [Mass/Vol] 1.45 mg/dL High 0.58-0.96 [facility] Comment on above: Order Comment: Speci men Type: BLOOD SPECIMENOrdering Facility: [facility] Address: [address] [place] [address] Performed By: #### 2 4323-8 ####[facility] LABCLIA [id number] [place] [address] [place] Creatinine and Glomerular filtration rate.predicted panel (S/P/Bld) 37 mL/min/1.73m??? Low >=60 [facility] Comment on above: Order Comment: Ebony de la torre Type: BLOOD SPECIMENOrdering Facility: [facility] Address: [address] [place] [address] Result Comment: Ruth mated Glomerular Filtration Rate (eGFR) is calculated using the 2020 CKD-EPI creatinine equation. This equation utilizes serum creatinine, sex, and age as parameters. The creatinine assay has traceable calibration to isotope dilution-mass spectrometry. Refer to KDIGO guidelines for clinical interpretation. In patients with unstable renal function, e.g. those with acute kidney injury, the eGFR may not accurately reflect actual GFR. Performed By: #### 2 4323-8 ####[facility] LABIA [id number] [place] [address] [place] Glucose [Mass/Vol] 85 mg/dL Normal 74-99 [facility] Comment on above: Order Comment: Ebony de la torre Type: BLOOD SPECIMENOrdering Facility: [facility] Address: [address] [place] [address] Result Comment: The [place] [employer] (ADA) provides guidance for cutoff values for fasting glucose and random glucose. The ADA defines fasting as no caloric intake for at least 8 hours. Fasting plasma glucose results between 100 to 125 mg/dL indicate increased risk for diabetes (prediabetes). Fasting plasma glucose results greater than or equal to 126 mg/dL meet the criteria for diagnosis of diabetes. In the absence of unequivocal hyperglycemia, results should be confirmed by repeat testing. In a patient with classic symptoms of hyperglycemia or hyperglycemic crisis, random plasma glucose results greater than or equal to 200 mg/dL meet the criteria for diagnosis of diabetes. Reference: Standards of Medical Care in Diabetes 2016, [place] [employer]. Diabetes Care. 2016.39(Suppl 1). Performed By: #### 2 4323-8 ####[facility] LABCLIA [id number] [address] [address] [place] Potassium [Moles/Vol] 4.2 mmol/L Normal 3.7-5.1 [facility] Comment on above: Order Comment: Speci men Type: BLOOD SPECIMENOrdering Facility: [facility] Address: [address] [place] [address] Performed By: #### 2 4323-8 ####[facility] LABCLIA [id number] [place] [address] [place] Protein [Mass/Vol] 7.1 g/dL Normal 6.3-8.0 [facility] Comment on above: Order Comment: Speci men Type: BLOOD SPECIMENOrdering Facility: [facility] Address: [address] [place] [address] Performed By: #### 2 4323-8 ####[facility] LABIA [id number] [place] [address] [place] Sodium [Moles/Vol] 142 mmol/L Normal 136-144 [facility] Comment on above: Order Comment: Speci men Type: BLOOD SPECIMENOrdering Facility: [facility] Address: [address] [place] [address] Performed By: #### 2 4323-8 ####[facility] LABIA [id number] [place] [address] [place] Urea nitrogen [Mass/Vol] 23 mg/dL High 7-21 [facility] Comment on above: Order Comment: Speci men Type: BLOOD SPECIMENOrdering Facility: [facility] Address: [address] [place] [address] Performed By: #### 2 4323-8 ####[facility] LABCLIA [id number] [address] [address] [place] [id number] 07-31-2024 ECG01 Ventricular Rate : 5 9 BPM Atrial Rate : 59 BPM P-R Interval : 128 ms QRS Duration : 84 ms Q-T Interval : 406 ms QTC Calculation(Bazett) : 401 ms Calculated P [place] : 90 degrees Calculated R [place] : -2 degrees Calculated T [place] : -9 degrees SINUS BRADYCARDIA WITH PREMATURE ATRIAL COMPLEXES OTHERWISE NORMAL ECG Confirmed by MD RIBEIRO GREGORY () on 08/03/2024 9:16:53 AM NAME : CHERYL MARRERO PID : [id number] : 1945 Gender : Female Race : ORD : Procedure Date : Jul 31 2024 17:08:23 Edit Date : Aug 03 2024 09:16:54 Diagnosis: SINUS BRADYCARDIA WITH PREMATURE ATRIAL COMPLEXES OTHERWISE NORMAL ECG Confirmed by MD RIBEIRO GREGORY () on 08/03/2024 9:16:53 AM Test Reason : Location : 636 : [facility] Overread By : MD RIBEIRO GREGORY Edited By : MD RIBEIRO GREGORY Referred By : DILSHAD GARCIA Acquired by : Luis Miguel bianchi [facility] HISTORY PHYSICALon HISTORY PHYSICAL HNO ID: [id number] Author: WILFRIDO APODACA APRN.ROOF BOLTER OPERATOR Service: ? 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 Measurements - Mid ascending aorta 3.1 cm. Hyperlipidemia Assessment: c/w statin Mild pulmonary hypertension (HCC) Assessment: hx mild pHTN 2020 echo but last echo 2022 shows normal RSVP, following with pulmonary Non-rheumatic mitral regurgitation Assessment: trace, EF 63% 02/2023 echo Mild persistent asthma without complication Assessment: Using PRN Albuterol inhaler Obstructive sleep apnea Assessment: Currently compliant with CPAP. SOB (shortness of breath) Assessment: Chronic and unchanged per patient. SOB also due to limited mobility/joint pain per patient. Negative stress test in 2019, negative chest CTA 03/2021. Most likely multi-factorial per pulmonology. BPPV (benign paroxysmal positional vertigo), unspecified laterality Assessment: rx as needed GERD (gastroesophageal reflux disease) Assessment: Symptoms currently stable on Rx. Anxiety and depression Assessment: stable on rx per pt S/P total knee arthroplasty, left Assessment: c/b infection, spacer in place, following [facility] ortho 12/10/2023 Dr. Calderon Updated Imaging: Well-appearing spacer with potentially some signs of loosening Assessment and Plan: I numbness discussion with Cheryl about her left knee today. Her spacer is functioning well for spacer, but is not as stable as a regular knee replacement. She has substantial spine difficulty, and she has numbness and tingling all the way to her foot. She should see a spine provider before making a decision about revision arthroplasty. In the interim we should get ESR, CRP, and an aspiration of the knee to make sure there is no residual infection. We discussed that surgery for the knee would be to place a more constraining, total stabilized knee replacement. This would likely improve some of her pain symptoms and give her more stability. It is unpredictable the exact extent of improvement she would have, and it is possible she would always have some residual pain from multiple knee operations. She will get the above workup and then follow-up in about 2 months. I have also given her a knee brace today to help with the stability. Chronic bilateral low back pain Assessment: following pain management, receiving injections Jade Activity Status Index: METS: Climb a flight of stairs or walk up a hill (5.50 METs) DASI Score: 5.5 Patient denies any chest pain or undue shortness of breath with the above physical activity. Clinical Frailty Scale: 3. Well, with treated comorbid disease STOP-Bang Score: Denies snoring loudly Denies feeling tired, fatigued, or sleepy during the daytime Has not been observed to stop breathing or choking/gasping during sleep Denies having high blood pressure BMI less than or equal to 35 kg/m2 Patient 50 years old or younger Does not have a large neck Non-male patient STOP-Bang Score: 0 [id number] Score: Age: >=75 Sex: female CHF history: No Hypertension history: Yes Stroke/TIA/thromboemb olism history: No Vascular disease history: No Diabetes history: No [id number] Score: 4 ARISCAT Score: Age: 51-80 Preoperative SpO2: >=96% Respiratory infection in the last month: No Preoperative anemia: No Surgical incision: peripheral Duration of surgery: 2-3 hrs Emergency procedure: No ARISCAT Score: 19 ANESTHESIA FINDINGS: Intubation History: No history of difficult intubation Significant Anesthesia Considerations: none Airway History: No history of difficult airway I - PHYSICAL EVALUATION AIRWAY Patient intubated: No. Tracheostomy tube not present Mallampati: III. TM distance: >3 FB. Neck ROM: full ROM without neurological symptoms. Mouth opening: adequate. Short neck: no. Thick neck: no Gaspar present: no Lip Bite Test: I Microretrognathia/Thony ronagthia/Recessed Chin: No DENTAL Dental findings: teeth intact. II - ANESTHESIA PLAN Anesthetic Plan: other Beta Domi Monitoring Plan Post Procedure Analgesic Plan Prepared for Surgery: optimally prepared for surgery. Labs and EKG-reviewed, okay to proceed-JL CONSULTS: Patient does not require consults for optimization at this time Planned Anesthetic: other anesthesia choice The Following Tests/Procedures Have Been Initiated: Orders Placed This Encounter >CBC + AUTO DIFF Standing Status: Future Number of Occurrences: 1 Standing (more content not included)... Normal [facility] HISTORY PHYSICALon HISTORY PHYSICAL HNO ID: [id number] Author: YASH [place] MD Service: Pain Management Author Type: Physician Type: H&P Filed: 07/30/2024 10:37 Note Text: HISTORY AND PHYSICAL EXAMINATION PATIENT NAME: Cheryl Marrero DATE of SERVICE: 07/30/2024 Cheryl Marrero is here for the pain mangement procedure. The patients presents with persistent pain complaints. Cheryl Marrero denies any interval changes or new pain complaints or focal neurologic deficits. PAST MEDICAL HISTORY Diagnosis Date Adjustment disorder with depressed mood Anxiety state, unspecified Arthritis Asthma Coronary artery disease Diverticulosis of colon (without mention of hemorrhage) Hemorrhage of gastrointestinal tract, unspecified Iron deficiency anemia 06/29/2021 Localized osteoarthrosis not specified whether primary or secondary, lower leg Lung nodules Myalgia Obstructive sleep apnea Other and unspecified hyperlipidemia Seasonal allergies Shingles 01/2017 Urge urinary incontinence PAST SURGICAL HISTORY Procedure Laterality Date ABDOMINAL SURGERY HX BREAST CYST PUNCTURE/BC CHOLECYSTECTOMY 04/09/2000 lap choley COLONOSCOPY - DIAGNOSTIC 11/01/2000 COLONOSCOPY FLX DX W/COLLJ SPEC WHEN PFRMD 09/09/2008 Colonoscopy COLONOSCOPY FLX DX W/COLLJ SPEC WHEN PFRMD 07/01/2014 Colonoscopy COLONOSCOPY FLX DX W/COLLJ SPEC WHEN PFRMD 11/05/2019 Colonoscopy COLONOSCOPY FLX DX W/COLLJ SPEC WHEN PFRMD 06/13/2021 ECHOCARDIOGRAM 04/24/2021 echo: LV small, LV SF WNL, EF 65%, grade 1 LVDD. All wall motion score normal. RV size and RV SF WNL, RVSP 38 mmHg consistent with mild pulmonary hypertension. LA and RA normal in size, inferior vena cava normal. MV: 0-1+ MVR, TV normal, 0-1+ TR, AV normal, PV not seen, 0-1+ FL. Mid a sending aorta 3.2 cm. Echocardiogram pulmonary arteries not interrogated, no pericardial effusion ESOPHAGOGASTRODUODENO SCOPY TRANSORAL DIAGNOSTIC 11/05/2019 EGD ESOPHAGOGASTRODUODENO SCOPY TRANSORAL DIAGNOSTIC 06/13/2021 EXCIS BREAST LESION Left 07/07/2024 US guided core bx Lt breast EYE SURGERY HX HEMORRHOIDECTOMY INTERNAL RUBBER BAND LIGATIONS 11/05/2019 PICC LINE INSERT/CONSULT 08/24/2021 SKIN BIOPSY HX TONSILLECTOMY HX TONSILLECTOMY PRIMARY/SECONDARY TOTAL KNEE REPLACEMENT Social History Tobacco Use Smoking status: Never Smokeless tobacco: Never Tobacco comments: Lived with smokers in childhood home and until 2002. Vaping Use Vaping status: Never Used Substance Use Topics Alcohol use: No Drug use: No FAMILY HISTORY Problem Relation Age of Onset Ischemic Heart Disease Father PASSED FROM [place] Diabetes Father Ischemic Heart Disease Mother PASSED FROM [place] Coronary Artery Disease Brother stent Diabetes Sister Cancer Maternal Grandfather lung Cancer Paternal Grandfather lung ALLERGIES Allergen Reactions Phenergan [Prometha* Mental Status Change, Intolerance Uyqnstb-Xsu-Pse Red* Other: See Comments Elevated liver enzymes in hospital, statins stopped. Adhesive Rash Breo Ellipta [Fluti* Other: See Comments Hoarseness/ Shortness of breath Penicillins Other: See Comments Local reaction at site of injection Roxicodone [Oxycodo* Intolerance Severe nausea and lightheadness Sulfa (Sulfonamide * Vancomycin Other: See Comments redness Current Facility-Administered Medications Medication Dose Route Frequency NaCl 0.9% iv infusion 30 mL/hr INTRAVENOUS CONTINUOUS Physical Exam: Performed in conjunction with observation. The patient is alert and oriented x3. The patient is in no acute distress. Neck: Supple. The range of motion is intact. Lungs: clear CVR: RRR. Extremities: no reported edema or erythema. Examination indicates no changes Impression: Lumbar foraminal stenosis Plan: The informed consent has been obtained. The plan is to proceed with the procedure as planned. SIGNATURE: Yash Walton MD DATE: July 30, 2024 TIME: 10:37 AM [facility] OPERATIVE NOon 07-30-2024 OPERATIVE NO HNO ID: [id number] Author: YASH [place] MD Service: Pain Management Author Type: Physician Type: Operative Report Filed: 07/30/2024 11:14 Note Text: PATIENT NAME: Cheryl Marrero SERVICE DATE: 07/30/2024 PROCEDURE NOTE PREOPERATIVE DIAGNOSIS(ES) Lumbar radiculopathy Lumbar disc displacement Lumbar canal stenosis without neurogenic claudication Lumbar DDD POSTOPERATIVE DIAGNOSIS(ES): Same PROCEDURE: Left L3-4 lumbar transforaminal epidural steroid injection under fluoroscopy. Ethylene Plant Operator(s): None, I performed the entire procedure. ANESTHESIA: Local SEDATION: Moderate Sedation; midazolam 2mg IV, ASA status II, normal airway, chest excursion and heart rate. Airway reassessed immediately prior to medication administration, and IV sedation was administered incrementally to allow the patient to remain comfortable and conversant throughout the procedure. Sedation Start Time: 11:04 AM Sedation End Time: 11:11 AM INDICATIONS: The patient presents for lumbar transforaminal epidural steroid injection. Since the last assessment, the patient denies any new pain complaints and denies any focal neurological deficits. The risks and benefits of the procedure were discussed. Specifically, the risks of bleeding, infection, inadvertent dural puncture, spinal heaches, vasovagal reaction, epidural hematoma, partial or permanent nerve injury were covered. The potential side effects of medications used in procedures including increase in lumbar pain, headaches, facial redness or warmth (flushing), anxiety or mood swings, sleeplessness, fever, high blood sugar, brief reduction in immunity were discussed. The patient expressed understanding of potential risks and wishes to proceed with the procedure. PROCEDURE NOTE: The patient was brought to the operating room. The patient was placed in the prone position with pressure points protected. Continuous hemodynamic monitoring was initiated including blood pressure, EKG, and pulse oximetry. Supplemental oxygen per nasal canula was started. The intravenous medication was administered incrementally to provide conscious sedation and to allow the patient to remain comfortable and conversant throughout the procedure. The lower back was prepped in sterile fashion. Upon AP projection under a fluoroscopy, the lumbar L4-5 level was identified. The fluoroscopy was rotated in oblique projection to identify the neuroforamen. Entry point was marked and anesthetized with 2ml of 0.25% Marcaine. This was followed by insertion of a 5 inch spinal needle, which was inserted and advanced towards the 12 o' clock of the L4-5 neuroforamen. Once the Needle tip contacted the inferior lateral aspect of the pedicle, aspiration was performed which was negative for blood or CSF. This was followed by injection of 0.2 ml of Omnipaque 300, which revealed a spread through the neuroforamen into the anterior epidural space. There was no evidence of intravascular or intrathecal flow. This was then followed by a total injection of 2 mL of 0.25% Marcaine with 40 mg of Depomedrol. The patient tolerated the procedure well. The needle was removed intact. Dry dressing was placed over the injection site. The patient was taken to the recovery room in stable condition. EBL: nil I was present the entire time and personally performed the procedure. SIGNATURE: Yash Walton MD DATE: July 30, 2024 TIME: 11:12 AM [facility] 07-29-[address] [facility] Office Visit (GENSWS ) CHERYL MARRERO ([id number]) 1945 F Date Time Provider Department 07/29/24 10:00 AM DILSHAD GARCIA GENRAFATS During your visit today, we recorded the following information about you: Pulse Blood pressure Weight 73/minute 158/75 74.8 kg Dilshad Garcia DO 08/03/2024 9:18 PM Signed GENERAL SURGERY POST OP FOLLOW UP Patient seen and examined in the clinic to review pathology results following left breast core needle biopsy on 07/07/2024. She initially presented to general surgery clinic on 06/24/2024 with non-bloody nipple discharge from the left breast. This was sporadic in nature. Denied pain or history of trauma to the left breast/nipple areolar complex. ULTRASOUND FINDINGS: Ultrasound demonstrates an oval hypoechoic lesion measuring 0.5 x 0.5 x 0.4 cm in the anterior depth region of the left breast at 9 o'clock. No internal vascularity. Differential diagnosis includes a papillary lesion. Lesion appears intraductal in location. This may account for the nonbloody nipple discharge. A bedside US was performed, however it was difficult to isolate the mass in the setting of dense breast tissue and benign calcifications, so she was referred to radiology for image guided biopsy. Pathology: Intraductal papilloma Patient states that overall she is doing fine. Denies nausea, vomiting, diarrhea, constipation. No fevers or chills. Appetite is good. 10 point review of systems completed and is otherwise negative On exam: There were no vitals filed for this visit. Gen: NAD, well-nourished Lungs: unlabored breathing, bilateral chest rise LEFT BREAST: The breast skin and nipple areolar complexes appear normal without retraction or lesions. There is no nipple discharge. There is no dominant mass or clinical abnormality noted in left breast. The left breast was examined with ultrasound and the biopsy clip was identified in subareolar region. . RIGHT BREAST: The breast skin and nipple areolar complexes appear normal without retraction or lesions. There is no nipple discharge. There is no dominant mass or clinical abnormality noted in right breast. LEFT REGIONAL LYMPH NODES: There is no concerning supraclavicular, infraclavicular or axillary lymphadenopathy RIGHT REGIONAL LYMPH NODES: There is no concerning supraclavicular, infraclavicular or axillary lymphadenopathy The sensitive examination was discussed with the Patient or Patient's Authorized Polyethylene Combiner. As applicable, any other physician, advance practice provider, medical student, or other health professional student that will be observing or involved in the sensitive examination for educational or training purposes was discussed with the Patient or Authorized Polyethylene Combiner. The Patient or Authorized Polyethylene Combiner has agreed to proceed with the sensitive examination. (Sensitive examination includes inspection and/or palpation of the breasts, pelvis, prostate and anorectal regions) Pathology: Component FINAL DIAGNOSIS A. Left breast, 9:00, subareolar, core biopsy with Q clip placement: - Intraductal papilloma. Gross Description A. Breast, Left, Core Biopsy Received in formalin labeled as left breast subareolar 9:00 (Q clip) are multiple irregular segments of yellow-red tissue aggregating to 1.5 x 0.3 x 0.2 cm, yellow and of a rubbery consistency. Totally submitted in one cassette. The specimen was removed from the patient at 10:13 AM on 07/07/2024. On the same day, the specimen was placed in formalin at 10:13 AM. Gross examination performed at [facility], [address] [place] [address] July 07, 2024 2:59 PM Assessment ASSESSMENT Subareolar mass of left breast (primary encounter diagnosis) Intraductal papilloma of left breast RECOMMENDATION -We reviewed her pathology report - Intraductal papilloma is considered a high risk lesion and therefore I recommend lumpectomy. All risks, benefits, alternatives, and possible complications for a lumpectomy were discussed with the patient including infection, bleeding, post-operative pain/paresthesia, wound healing issues, and cosmetic changes. We also discussed FLASH patrol man placement versus US wire localization in the operating room. She does not want to undergo two procedures, and therefore requested wire localization. -Schedule for lumpectomy Dilshad Garcia DO July 29, 2024 8:36 AM Allergies As of Date: 07/29/2024 Noted Allergy Reaction PHENERGAN (PROMETHAZINE HCL) 12/16/2009 1 - Mental Status Change 5 - Intolerance [id number] REDUCTASE INHIBIT*05/14/2014 14 - Other: See Comments Comments: Elevated liver enzymes in hospital, statins stopped. ADHESIVE 08/02/2011 2 - Rash BREO ELLIPTA (FLUTICASONE FUROATE*04/18/ (more content not included)... Normal [facility] Rylie 07-29-2024 CNPN Telephone ([employer]) CHERYL MARRERO ([id number]) 1945 F Date Time Provider Department 07/29/24 DILSHAD GARCIA During your visit today, we recorded the following information about you: Stanton Campbell 07/29/2024 12:08 PM [facility] Campbell Allergies As of Date: 07/29/2024 Noted Allergy Reaction PHENERGAN (PROMETHAZINE HCL) 12/16/2009 1 - Mental Status Change 5 - Intolerance [id number] REDUCTASE INHIBIT*05/14/2014 14 - Other: See Comments Comments: Elevated liver enzymes in hospital, statins stopped. ADHESIVE 08/02/2011 2 - Rash BREO ELLIPTA (FLUTICASONE FUROATE*04/18/2021 14 - Other: See Comments Comments: Hoarseness/ Shortness of breath PENICILLINS 06/18/2005 14 - Other: See Comments Comments: Local reaction at site of injection ROXICODONE (OXYCODONE) 08/16/2021 5 - Intolerance Comments: Severe nausea and lightheadness SULFA (SULFONAMIDE ANTIBIOTICS) 06/18/2005 VANCOMYCIN 10/05/2021 14 - Other: See Comments Comments: redness Date Reviewed: 07/29/2024 Reviewed by: Lorena Wing MA - Fully Assessed Reason for Visit: 08-04-2024 [facility] [Other] Prescriptions as of 09/18/2024 - tiZANidine (ZANAFLEX) 2 mg tablet Take 1 tablet by mouth every 8 hours as needed. - diclofenac (VOLTAREN) 1 % topical gel Apply 2 g to affected area two times a day as needed. - buPROPion XL (WELLBUTRIN XL) 150 mg 24 hr tablet Take 1 tablet by mouth once daily. - folic acid 1 mg tablet Take 1 tablet by mouth once daily. - lansoprazole (PREVACID) 30 mg capsule Take 1 capsule by mouth once daily. - metoprolol succinate ER (TOPROL XL) 25 mg 24 hr tablet Take 1 tablet by mouth two times a day. - rosuvastatin (CRESTOR) 5 mg tablet Take 1 tablet by mouth daily at bedtime. - ondansetron orally disintegrating (ZOFRAN ODT) 8 mg disintegrating tablet Take 1 tablet by mouth every 8 hours as needed for nausea/vomiting. - albuterol HFA (PROAIR HFA) 90 mcg/actuation inhaler Inhale 2 Puffs as instructed every 6 hours as needed. - meclizine (ANTIVERT) 25 mg tab Take 25 mg by mouth three times daily as needed. From [facility] - clindamycin (CLEOCIN) 300 mg capsule Take 2 capsules by mouth one hour prior to dental cleaning/procedure - ascorbic acid (VITAMIN C ORAL) Take 1 tablet by mouth once daily. 1000mg - CPAP - polyethylene glycol 3350 (MIRALAX ORAL) Take 1 Tablespoonful by mouth as needed. - acetaminophen (TYLENOL) 500 mg tablet Take 2 tablets by mouth every 8 hours as needed. - fluticasone (FLONASE) 50 mcg/actuation nasal spray Use 1 [place] in each nostril once daily. - vitamin B complex (B COMPLEX 1 ORAL) Take 1 tablet by mouth once daily. - cholecalciferol (VITAMIN D3) 1,000 unit tab tablet Take 1,000 Units by mouth once daily. Problem List As Of Date 07/29/2024 Noted Resolved Anxiety state, unspecified [F41.1] 06/13/2017 INT HEMORRHOID W/O COMPL [K64.8] DIVERTICULOSIS OF COLON W/O BLEED [K57.30] Hemorrhage of gastrointestinal tract, unspecifi* 12/11/2016 Hyperlipidemia [E78.5] ADJUSTMENT DISORDER WITH DEPRESSED MOOD [F43.21]01/03/2006 URGE INCONTINENCE [N39.41] 07/05/2006 Diarrhea [R19.7] 09/09/2008 12/11/2016 Breast density [R92.30] 01/25/2010 12/11/2016 GERD (gastroesophageal reflux disease) [K21.9] 07/18/2010 Plantar fasciitis, bilateral [M72.2] 08/06/2012 12/11/2016 RAVIN (obstructive sleep apnea) [G47.33] 05/09/2013 08/16/2021 Urinary frequency [R35.0] 08/04/2013 Irritable bowel syndrome with diarrhea [K58.0] 08/09/2015 Mild persistent asthma without complication [J4*08/09/2015 IPMN (intraductal papillary mucinous neoplasm) *08/09/2015 Primary osteoarthritis of left knee [M17.12] 08/09/2015 08/16/2021 DDD (degenerative disc disease), lumbar [M51.36*06/13/2017 BPPV (benign paroxysmal positional vertigo), un*06/26/2017 Obesity, Class I, BMI 30-34.9 [E66.811] 01/13/2018 08/16/2021 Asthma [J45.909] 08/16/2021 Seasonal allergies [J30.2] Obstructive sleep apnea [G47.33] Lung nodules [R91.8] 04/04/2023 Non-rheumatic mitral regurgitation [I34.0] 03/09/2019 Chronic pain of right upper extremity [M79.601,*01/08/2020 Chronic pain of left knee [M25.562, G89.29] 06/27/2020 Chronic bilateral low back pain [M54.50, G89.29]06/27/2020 Mild pulmonary hypertension (HCC) [I27.20] 12/12/2020 S/P total knee arthroplasty, left [Z96.652] 12/28/2020 Acquired dilation of ascending aorta and aortic*03/15/2021 Other chest pain [R07.89] 03/15/2021 08/16/2021 SOB (shortness of breath) [R06.02] 04/23/2021 Iron deficiency anemia [D50.9] 06/29/2021 04/04/2023 Iron malabsorption [K90.9] 06/29/2021 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 Normal [facility] 07-13-2024 CNPN Telephone (PNMDNA) CHERYL MARRERO ([id number]) 1945 F Date Time Provider Department 07/13/24 YASH WALTON During your visit today, we recorded the following information about you: Lesa Squires RN 07/13/2024 8:15 AM Signed Received secure staff message from Salma Medina PA-C: Can you please call the patient to schedule the injection ordered? We will aim for LEFT L3-4 TFESI. Procedure: Left L3-4 TFESI D-P-A-/DW Ref Office to contact patient to schedule injection procedure. Gabriela Garza MA 07/13/2024 8:55 AM Signed Duplicate encounter. Please refer to telephone encounter dated 07/10/24. Patient is already scheduled. Allergies As of Date: 07/13/2024 Noted Allergy Reaction PHENERGAN (PROMETHAZINE HCL) 12/16/2009 1 - Mental Status Change 5 - Intolerance [id number] REDUCTASE INHIBIT*05/14/2014 14 - Other: See Comments Comments: Elevated liver enzymes in hospital, statins stopped. ADHESIVE 08/02/2011 2 - Rash BREO ELLIPTA (FLUTICASONE FUROATE*04/18/2021 14 - Other: See Comments Comments: Hoarseness/ Shortness of breath PENICILLINS 06/18/2005 14 - Other: See Comments Comments: Local reaction at site of injection ROXICODONE (OXYCODONE) 08/16/2021 5 - Intolerance Comments: Severe nausea and lightheadness SULFA (SULFONAMIDE ANTIBIOTICS) 06/18/2005 VANCOMYCIN 10/05/2021 14 - Other: See Comments Comments: redness Date Reviewed: 07/09/2024 Reviewed by: Gabriela Garza MA - Fully Assessed Reason for Visit: Schedule Injection [3498] Cmt: Salma Medina PA-C Referral Prescriptions as of 07/13/2024 - tiZANidine (ZANAFLEX) 2 mg tablet Take 1 tablet by mouth every 8 hours as needed. - diclofenac (VOLTAREN) 1 % topical gel Apply 2 g to affected area two times a day as needed. - buPROPion XL (WELLBUTRIN XL) 150 mg 24 hr tablet Take 1 tablet by mouth once daily. - folic acid 1 mg tablet Take 1 tablet by mouth once daily. - lansoprazole (PREVACID) 30 mg capsule Take 1 capsule by mouth once daily. - metoprolol succinate ER (TOPROL XL) 25 mg 24 hr tablet Take 1 tablet by mouth two times a day. - rosuvastatin (CRESTOR) 5 mg tablet Take 1 tablet by mouth daily at bedtime. - ondansetron orally disintegrating (ZOFRAN ODT) 8 mg disintegrating tablet Take 1 tablet by mouth every 8 hours as needed for nausea/vomiting. - albuterol HFA (PROAIR HFA) 90 mcg/actuation inhaler Inhale 2 Puffs as instructed every 6 hours as needed. - meclizine (ANTIVERT) 25 mg tab Take 25 mg by mouth three times daily as needed. From [facility] er - clindamycin (CLEOCIN) 300 mg capsule Take 2 capsules by mouth one hour prior to dental cleaning/procedure - ascorbic acid (VITAMIN C ORAL) Take 1 tablet by mouth once daily. 1000mg - CPAP - polyethylene glycol 3350 (MIRALAX ORAL) Take 1 Tablespoonful by mouth as needed. - acetaminophen (TYLENOL) 500 mg tablet Take 2 tablets by mouth every 8 hours as needed. - fluticasone (FLONASE) 50 mcg/actuation nasal spray Use 1 [place] in each nostril once daily. - vitamin B complex (B COMPLEX 1 ORAL) Take 1 tablet by mouth once daily. - cholecalciferol (VITAMIN D3) 1,000 unit tab tablet Take 1,000 Units by mouth once daily. Problem List As Of Date 07/13/2024 Noted Resolved Anxiety state, unspecified [F41.1] 06/13/2017 INT HEMORRHOID W/O COMPL [K64.8] DIVERTICULOSIS OF COLON W/O BLEED [K57.30] Hemorrhage of gastrointestinal tract, unspecifi* 12/11/2016 Hyperlipidemia [E78.5] ADJUSTMENT DISORDER WITH DEPRESSED MOOD [F43.21]01/03/2006 URGE INCONTINENCE [N39.41] 07/05/2006 Diarrhea [R19.7] 09/09/2008 12/11/2016 Breast density [R92.30] 01/25/2010 12/11/2016 GERD (gastroesophageal reflux disease) [K21.9] 07/18/2010 Plantar fasciitis, bilateral [M72.2] 08/06/2012 12/11/2016 RAVIN (obstructive sleep apnea) [G47.33] 05/09/2013 08/16/2021 Urinary frequency [R35.0] 08/04/2013 Irritable bowel syndrome with diarrhea [K58.0] 08/09/2015 Mild persistent asthma without complication [J4*08/09/2015 IPMN (intraductal papillary mucinous neoplasm) *08/09/2015 Primary osteoarthritis of left knee [M17.12] 08/09/2015 08/16/2021 DDD (degenerative disc disease), lumbar [M51.36*06/13/2017 BPPV (benign paroxysmal positional vertigo), un*06/26/2017 Obesity, Class I, BMI 30-34.9 [E66.811] 01/13/2018 08/16/2021 Asthma [J45.909] 08/16/2021 Seasonal allergies [J30.2] Obstructive sleep apnea [G47.33] Lung nodules [R91.8] 04/04/2023 Non-rheumatic mitral regurgitation [I34.0] 03/09/2019 Chronic pain of right upper extremity [M79.601,*01/08/2020 Chronic pain of left knee [M25.562, G89.29] 06/27/2020 Chronic bilateral low back pain [M54.50, G89.29]06/27/2020 Mild pulmonary hypertension (HCC) [I27.20] 12/12/2020 S/P total knee arthroplasty, left [Z96.652] 12/28/2020 Acquired dilation of ascending aorta and aortic*03/15/2021 Other chest pain [R07.89] 03/15/2021 08/16/2021 (more content not included)... Normal [facility] 07-10-2024 BEN Telephone (PNMDNA) JANESCHERYL Evon ([id number]) 1945 F Date Time Provider Department 07/10/24 YASH WALTON During your visit today, we recorded the following information about you: Gabriela Garza MA 07/10/2024 12:16 PM Signed Patient contacted via telephone to schedule injection. Patient has scheduled for: 07/30/24 Patient instructed to hold the following medication(s) prior to the procedure: - NSAIDS for 5 days prior Pre-procedure instructions reviewed over telephone and a list of instructions were sent via [email or web address]. Patient verbalized understanding with no additional questions or concerns at this time. Allergies As of Date: 07/10/2024 Noted Allergy Reaction PHENERGAN (PROMETHAZINE HCL) 12/16/2009 1 - Mental Status Change 5 - Intolerance [id number] REDUCTASE INHIBIT*05/14/2014 14 - Other: See Comments Comments: Elevated liver enzymes in hospital, statins stopped. ADHESIVE 08/02/2011 2 - Rash BREO ELLIPTA (FLUTICASONE FUROATE*04/18/2021 14 - Other: See Comments Comments: Hoarseness/ Shortness of breath PENICILLINS 06/18/2005 14 - Other: See Comments Comments: Local reaction at site of injection ROXICODONE (OXYCODONE) 08/16/2021 5 - Intolerance Comments: Severe nausea and lightheadness SULFA (SULFONAMIDE ANTIBIOTICS) 06/18/2005 VANCOMYCIN 10/05/2021 14 - Other: See Comments Comments: redness Date Reviewed: 07/09/2024 Reviewed by: Gabriela Garza MA - Fully Assessed Reason for Visit: Injection Referral [Other] Cmt: DW Referral Prescriptions as of 07/10/2024 - tiZANidine (ZANAFLEX) 2 mg tablet Take 1 tablet by mouth every 8 hours as needed. - diclofenac (VOLTAREN) 1 % topical gel Apply 2 g to affected area two times a day as needed. - buPROPion XL (WELLBUTRIN XL) 150 mg 24 hr tablet Take 1 tablet by mouth once daily. - folic acid 1 mg tablet Take 1 tablet by mouth once daily. - lansoprazole (PREVACID) 30 mg capsule Take 1 capsule by mouth once daily. - metoprolol succinate ER (TOPROL XL) 25 mg 24 hr tablet Take 1 tablet by mouth two times a day. - rosuvastatin (CRESTOR) 5 mg tablet Take 1 tablet by mouth daily at bedtime. - ondansetron orally disintegrating (ZOFRAN ODT) 8 mg disintegrating tablet Take 1 tablet by mouth every 8 hours as needed for nausea/vomiting. - albuterol HFA (PROAIR HFA) 90 mcg/actuation inhaler Inhale 2 Puffs as instructed every 6 hours as needed. - meclizine (ANTIVERT) 25 mg tab Take 25 mg by mouth three times daily as needed. From [facility] er - clindamycin (CLEOCIN) 300 mg capsule Take 2 capsules by mouth one hour prior to dental cleaning/procedure - ascorbic acid (VITAMIN C ORAL) Take 1 tablet by mouth once daily. 1000mg - CPAP - polyethylene glycol 3350 (MIRALAX ORAL) Take 1 Tablespoonful by mouth as needed. - acetaminophen (TYLENOL) 500 mg tablet Take 2 tablets by mouth every 8 hours as needed. - fluticasone (FLONASE) 50 mcg/actuation nasal spray Use 1 [place] in each nostril once daily. - vitamin B complex (B COMPLEX 1 ORAL) Take 1 tablet by mouth once daily. - cholecalciferol (VITAMIN D3) 1,000 unit tab tablet Take 1,000 Units by mouth once daily. Problem List As Of Date 07/10/2024 Noted Resolved Anxiety state, unspecified [F41.1] 06/13/2017 INT HEMORRHOID W/O COMPL [K64.8] DIVERTICULOSIS OF COLON W/O BLEED [K57.30] Hemorrhage of gastrointestinal tract, unspecifi* 12/11/2016 Hyperlipidemia [E78.5] ADJUSTMENT DISORDER WITH DEPRESSED MOOD [F43.21]01/03/2006 URGE INCONTINENCE [N39.41] 07/05/2006 Diarrhea [R19.7] 09/09/2008 12/11/2016 Breast density [R92.30] 01/25/2010 12/11/2016 GERD (gastroesophageal reflux disease) [K21.9] 07/18/2010 Plantar fasciitis, bilateral [M72.2] 08/06/2012 12/11/2016 RAVIN (obstructive sleep apnea) [G47.33] 05/09/2013 08/16/2021 Urinary frequency [R35.0] 08/04/2013 Irritable bowel syndrome with diarrhea [K58.0] 08/09/2015 Mild persistent asthma without complication [J4*08/09/2015 IPMN (intraductal papillary mucinous neoplasm) *08/09/2015 Primary osteoarthritis of left knee [M17.12] 08/09/2015 08/16/2021 DDD (degenerative disc disease), lumbar [M51.36*06/13/2017 BPPV (benign paroxysmal positional vertigo), un*06/26/2017 Obesity, Class I, BMI 30-34.9 [E66.811] 01/13/2018 08/16/2021 Asthma [J45.909] 08/16/2021 Seasonal allergies [J30.2] Obstructive sleep apnea [G47.33] Lung nodules [R91.8] 04/04/2023 Non-rheumatic mitral regurgitation [I34.0] 03/09/2019 Chronic pain of right upper extremity [M79.601,*01/08/2020 Chronic pain of left knee [M25.562, G89.29] 06/27/2020 Chronic bilateral low back pain [M54.50, G89.29]06/27/2020 Mild pulmonary hypertension (HCC) [I27.20] 12/12/2020 S/P total knee arthroplasty, left [Z96.652] 12/28/2020 Acquired dilation of ascending aorta and aortic*03/15/2021 Other chest pain [R07.89] 03/15/2021 08/16/2021 SOB (shortness of breath) [R06.02] (more content not included)... [facility] 07-09-2024 CNOV Office Visit (SPNMED ) CHERYL MARRERO ([id number]) 1945 F Date Time Provider Department 07/09/24 3:40 PM SALMA MEDINA During your visit today, we recorded the following information about you: Pulse Blood pressure 73/minute 138/81 Salma Mdeina PA-C 07/09/2024 4:31 PM Signed Salma Medina PA-C [facility] [address] [address] Dear Raul Bellamy PA-C, Cheryl Barnard Janes is a pleasant 79 year old individual who comes in to the office on 07/09/2024 for follow-up regarding the Lumbar spine. Patient's sister accompanies her and takes notes during the visit. The patient is pushing her sister in a wheelchair for today's visit. Subjective: Compared to the last visit, symptoms have been the same. Ms. Marrero still has mostly LLE pain in the quad and wrapping around the LEFT knee. The pain sometimes goes below the left knee into the lateral lower leg about snf down ROS: Since last visit-patient DENIES fevers, chills, night sweats, unexpected weight loss or gain, abdominal pain, progressive weakness, paralysis, loss of bowel/bladder control, saddle numbness, stumbling gait, loss of coordination. Current Outpatient Medications Medication Sig Dispense Refill tiZANidine (ZANAFLEX) 2 mg tablet Take 1 tablet by mouth every 8 hours as needed. (Patient not taking: Reported on 06/24/2024) 30 tablet 0 diclofenac (VOLTAREN) 1 % topical gel Apply 2 g to affected area two times a day as needed. 200 g 0 buPROPion XL (WELLBUTRIN XL) 150 mg 24 hr tablet Take 1 tablet by mouth once daily. 90 tablet 3 folic acid 1 mg tablet Take 1 tablet by mouth once daily. 90 tablet 3 lansoprazole (PREVACID) 30 mg capsule Take 1 capsule by mouth once daily. 90 capsule 3 metoprolol succinate ER (TOPROL XL) 25 mg 24 hr tablet Take 1 tablet by mouth two times a day. 180 tablet 3 rosuvastatin (CRESTOR) 5 mg tablet Take 1 tablet by mouth daily at bedtime. 90 tablet 3 ondansetron orally disintegrating (ZOFRAN ODT) 8 mg disintegrating tablet Take 1 tablet by mouth every 8 hours as needed for nausea/vomiting. 30 tablet 5 albuterol HFA (PROAIR HFA) 90 mcg/actuation inhaler Inhale 2 Puffs as instructed every 6 hours as needed. 18 g 11 meclizine (ANTIVERT) 25 mg tab Take 25 mg by mouth three times daily as needed. From [facility] clindamycin (CLEOCIN) 300 mg capsule Take 2 capsules by mouth one hour prior to dental cleaning/procedure 2 capsule 1 ascorbic acid (VITAMIN C ORAL) Take 1 tablet by mouth once daily. 1000mg CPAP polyethylene glycol 3350 (MIRALAX ORAL) Take 1 Tablespoonful by mouth as needed. acetaminophen (TYLENOL) 500 mg tablet Take 2 tablets by mouth every 8 hours as needed. fluticasone (FLONASE) 50 mcg/actuation nasal spray Use 1 [place] in each nostril once daily. vitamin B complex (B COMPLEX 1 ORAL) Take 1 tablet by mouth once daily. cholecalciferol (VITAMIN D3) 1,000 unit tab tablet Take 1,000 Units by mouth once daily. No current facility-administered medications for this visit. Exam: Blood pressure 138/81, pulse 73, SpO2 99%. There is no height or weight on file to calculate BMI. Station and Gait: favoring the left lower extremity Range of Motion: normal Motor: Diminished LEFT quad Sensory: LEFT LE N/T in quad and just below knee on the lateral side Reflexes: Hyporeflexic in lower extremities Pain on Palpation: Mild pain on palpation in the low back and LEFT sciatic notch Imaging: The following study/studies were reviewed with the patient during the visit: We did a rather lengthy review of her lumbar MRI study as well as the medical terminology found in the report that she brought with her to today's visit. She does have severe stenosis at the L3-4 level from a combination of facet hypertrophy, ligamentum flavum thickening and disc bulge. At L4-5, there is spondylolisthesis and resultant milder stenosis than what is seen at L3-4. She has multiple level disc degeneration and disc space height loss noted throughout. The L4-5 level does not appear to be significantly mobile through flexion and extension motion. 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 This was mentioned to the patient as well and she will consider use of an OTC heel lift to slowly correct it. Assessment/Plan: Encounter Diagnosis ICD-10-CM 1. Spinal stenosis of lumbar region with neurogenic claudication M48.062 SPINE INTERVENTION PROCEDURE 2. Radiculopathy, lumbar region M54.16 SPINE INTERVENTION PROCEDURE RTC: about a month after injection Other/Discussion: We had a long discussion during today's office visit regarding her findings on the MRI, correlation with her current symptoms, and recommendation to consider epidural injection transforamin (more content not included)... Normal [facility] DI[facility]NOSTIC LT[facility] 07-07-20 24 [facility] * * *Final Report* * * * * * SEE BOTTOM OF REPORT FOR ADDENDED TEXT * * * DATE OF EXAM: Jul 07 2024 10:46AM [id number] - [facility] / PROCEDURE REASON: Subareolar mass of left breast * * * * Physician Interpretation * * * * [facility] [address] [facility] [place] [phone] - - - - - - - - - - ADDENDED REPORT - - - - - - - - - - 07/09/2024 at 14:34:10 Addendum: FINAL DIAGNOSIS A. Left breast, 9:00, subareolar, core biopsy with Q clip placement: ? Intraductal papilloma. Findings are CONCORDANT with the imaging assessment. The patient is under the care of of Dr. Garcia for results and further management. Surgical consultation is recommended. These results have been forwarded to Dr. Garcia via appMobi secure messaging. Interpreting Radiologist: Steve Steiner M.D. Electronically signed on: 07/09/2024 - - - - - - - - - - ORIGINAL REPORT - - - - - - - - - - HISTORY: 79 year old patient presents for ultrasound guided core biopsy of mass at 9 o'clock subareolar position in the left breast. PATIENT CONSENT: A time out was performed immediately prior to procedure start with the radiology team, correctly identifying the patient name, date of , procedure, anatomy (including marking of site and side), patient position, relevant diagnostic and radiology test results, safety precautions, and procedure-specific equipment needs. The procedure was explained to the patient including the risks, benefits and alternatives. Medications and allergies were also reviewed. The risks, including but not limited to infection and bleeding, were reviewed by the performing physician and the patient agreed to undergo the procedure. The radiologist, assisting radiologist, and technologist were present throughout the entire procedure. The food and beverage assistant radiologist was Dr. Guerrero. The food and beverage assistant radiologist administered local anesthesia, performed the tissue sampling and placed the biopsy clip. Correlation is made to exams dated: 04/17/2023 (mammogram), 06/17/2024 (ultrasound) and 06/17/2024 (mammogram). Audible Time Out Time: 1005 hrs Procedure Start Time: 1010 hrs Procedure Stop Time: 1023 hrs An ultrasound guided biopsy using real-time ultrasound was performed for the concerning mass located in the left breast at 9 o'clock retroareolar region. This was described on the previous ultrasound report. The skin was prepped in the usual manner. Local anesthetic was administered to the access site. A skin hilary was made in the breast. The abnormality was approached from the medial aspect. A 14 gauge biopsy needle was placed adjacent to the abnormality under ultrasound guidance. Once the needle was documented to be in the correct location, 3 passes were made using a spring-loaded biopsy device. A Q biopsy marker was then placed under sonographic guidance. A skin closure strip and a sterile dressing were applied to the access site. During the procedure, there were no biopsy complications observed. The specimens were sent to the laboratory for pathological analysis. Post procedure imaging demonstrates the clip in appropriate position at the biopsy target. The breasts are heterogeneously dense, which may obscure small masses. IMPRESSION: ULTRASOUND GUIDED BIOPSY Successful ultrasound guided biopsy of the mass at 9 o'clock, retroareolar region in the left breast with placement of a clip. Waiting for pathology results. A final report will be issued when these become available. Interpreting Radiologist: Electronically signed on: 07/07/2024 [employer]: PAT Transcribe Date/Time: Jul 07 2024 10:38A Dictated by : GENNY GUERRERO MD This examination was interpreted and the report reviewed and electronically signed by: STEVE STEINER MD on Jul 07 2024 12:04PM EST This document has been addended by: STEVE STEINER MD on Jul 09 2024 2:34PM EST [id number] Normal [facility] US BIOPSY BREAST LTon [facility] US BIOPSY BREAST LT * * *Final Repor t* * * * * * SEE BOTTOM OF REPORT FOR ADDENDED TEXT * * * DATE OF EXAM: Jul 07 2024 10:37AM AAW [id number] - [facility] US BIOPSY BREAST LT / PROCEDURE REASON: Subareolar mass of left breast * * * * Physician Interpretation * * * * [facility] [address] [facility] [place] [address] - - - - - - - - - - ADDENDED REPORT - - - - - - - - - - 07/09/2024 at 14:34:10 Addendum: FINAL DIAGNOSIS A. Left breast, 9:00, subareolar, core biopsy with Q clip placement: ? Intraductal papilloma. Findings are CONCORDANT with the imaging assessment. The patient is under the care of of Dr. Garcia for results and further management. Surgical consultation is recommended. These results have been forwarded to Dr. Garcia via appMobi secure messaging. Interpreting Radiologist: Steve Steiner M.D. Electronically signed on: 07/09/2024 - - - - - - - - - - ORIGINAL REPORT - - - - - - - - - - HISTORY: 79 year old patient presents for ultrasound guided core biopsy of mass at 9 o'clock subareolar position in the left breast. PATIENT CONSENT: A time out was performed immediately prior to procedure start with the radiology team, correctly identifying the patient name, date of , procedure, anatomy (including marking of site and side), patient position, relevant diagnostic and radiology test results, safety precautions, and procedure-specific equipment needs. The procedure was explained to the patient including the risks, benefits and alternatives. Medications and allergies were also reviewed. The risks, including but not limited to infection and bleeding, were reviewed by the performing physician and the patient agreed to undergo the procedure. The radiologist, assisting radiologist, and technologist were present throughout the entire procedure. The food and beverage assistant radiologist was Dr. Guerrero. The food and beverage assistant radiologist administered local anesthesia, performed the tissue sampling and placed the biopsy clip. Correlation is made to exams dated: 04/17/2023 (mammogram), 06/17/2024 (ultrasound) and 06/17/2024 (mammogram). Audible Time Out Time: 1005 hrs Procedure Start Time: 1010 hrs Procedure Stop Time: 1023 hrs An ultrasound guided biopsy using real-time ultrasound was performed for the concerning mass located in the left breast at 9 o'clock retroareolar region. This was described on the previous ultrasound report. The skin was prepped in the usual manner. Local anesthetic was administered to the access site. A skin hilary was made in the breast. The abnormality was approached from the medial aspect. A 14 gauge biopsy needle was placed adjacent to the abnormality under ultrasound guidance. Once the needle was documented to be in the correct location, 3 passes were made using a spring-loaded biopsy device. A Q biopsy marker was then placed under sonographic guidance. A skin closure strip and a sterile dressing were applied to the access site. During the procedure, there were no biopsy complications observed. The specimens were sent to the laboratory for pathological analysis. Post procedure imaging demonstrates the clip in appropriate position at the biopsy target. The breasts are heterogeneously dense, which may obscure small masses. IMPRESSION: ULTRASOUND GUIDED BIOPSY Successful ultrasound guided biopsy of the mass at 9 o'clock, retroareolar region in the left breast with placement of a clip. Waiting for pathology results. A final report will be issued when these become available. Interpreting Radiologist: Electronically signed on: 07/07/2024 [employer]: PAT Transcrisreekanth Date/Time: Jul 07 2024 10:29A Dictated by : GENNY GUERRERO MD This examination was interpreted and the report reviewed and electronically signed by: STEVE STEINER MD on Jul 07 2024 12:04PM EST This document has been addended by: STEVE STEINER MD on Jul 09 2024 2:34PM EST [id number] N Normal [facility] MG Breast - left Diagnostic for implanton 07-07-2024 IMPRESSION: ULTRASOUND GUIDED BIOPSY Successful ultrasound guided biopsy of the mass at 9 o'clock, retroareolar region in the left breast with placement of a clip . Waiting for pathology results. A final report will be issued when these become available. Interpreting Radiologist: Electronically signed on: 07/07/2024 [employer]: PAT Transcrisreekanth Date/Time: Jul 07 2024 10:38A Dictated by : GENNY GUERRERO MD This examination was interpreted and the report reviewed and electronically signed by: STEVE STEINER MD on Jul 07 2024 12:04PM EST [facility] * * *Final Report* * * DATE OF EXAM: Jul 07 2024 10:46AM [facility] 0621 - BLADIMIR DIAGNOSTIC LT / PROCEDURE REASON: Subareolar mass of left breast * * * * Physician Interpretation * * * * [facility] [address] [facility] [place] [address] HISTORY: 79 year old patient presents for ultrasound guided core biopsy of mass at 9 o'clock subareolar position in the left breast. PATIENT CONSENT: A time out was performed immediately prior to procedure start with the radiology team, correctly identifying the patient name, date of , procedure, anatomy (including marking of site and side), patient position, relevant diagnostic and radiology test results, safety precautions, and procedure-specific equipment needs. The procedure was explained to the patient including the risks, benefits and alternatives. Medications and allergies were also reviewed. The risks, including but not limited to infection and bleeding, were reviewed by the performing physician and the patient agreed to undergo the procedure. The radiologist, assisting radiologist, and technologist were present throughout the entire procedure. The food and beverage assistant radiologist was Dr. Guerrero. The food and beverage assistant radiologist administered local anesthesia, performed the tissue sampling and placed the biopsy clip. Correlation is made to exams dated: 04/17/2023 (mammogram), 06/17/2024 (ultrasound) and 06/17/2024 (mammogram). Audible Time Out Time: 1005 hrs Procedure Start Time: 1010 hrs Procedure Stop Time: 1023 hrs An ultrasound guided biopsy using real-time ultrasound was performed for the concerning mass located in the left breast at 9 o'clock retroareolar region. This was described on the previous ultrasound report. The skin was prepped in the usual manner. Local anesthetic was administered to the access site. A skin hilary was made in the breast. The abnormality was approached from the medial aspect. A 14 gauge biopsy needle was placed adjacent to the abnormality under ultrasound guidance. Once the needle was documented to be in the correct location, 3 passes were made using a spring-loaded biopsy device. A Q biopsy marker was then placed under sonographic guidance. A skin closure strip and a sterile dressing were applied to the access site. During the procedure, there were no biopsy complications observed. The specimens were sent to the laboratory for pathological analysis. Post procedure imaging demonstrates the clip in appropriate position at the biopsy target. The breasts are heterogeneously dense, which may obscure small masses. [facility] Provider, [facility] Guy billingsley [place] - 07/07/2024 * * *Final Report* * * DATE OF EXAM: Jul 07 2024 10:46AM [facility] 0621 - BLADIMIR DIAGNOSTIC LT / PROCEDURE REASON: Subareolar mass of left breast * * * * Physician Interpretation * * * * [facility] [address] [facility] [place] [place] [address] HISTORY: 79 year old patient presents for ultrasound guided core biopsy of mass at 9 o'clock subareolar position in the left breast. PATIENT CONSENT: A time out was performed immediately prior to procedure start with the radiology team, correctly identifying the patient name, date of , procedure, anatomy (including marking of site and side), patient position, relevant diagnostic and radiology test results, safety precautions, and procedure-specific equipment needs. The procedure was explained to the patient including the risks, benefits and alternatives. Medications and allergies were also reviewed. The risks, including but not limited to infection and bleeding, were reviewed by the performing physician and the patient agreed to undergo the procedure. The radiologist, assisting radiologist, and technologist were present throughout the entire procedure. The food and beverage assistant radiologist was Dr. Guerrero. The food and beverage assistant radiologist administered local anesthesia, performed the tissue sampling and placed the biopsy clip. Correlation is made to exams dated: 04/17/2023 (mammogram), 06/17/2024 (ultrasound) and 06/17/2024 (mammogram). Audible Time Out Time: 1005 hrs Procedure Start Time: 1010 hrs Procedure Stop Time: 1023 hrs An ultrasound guided biopsy using real-time ultrasound was performed for the concerning mass located in the left breast at 9 o'clock retroareolar region. This was described on the previous ultrasound report. The skin was prepped in the usual manner. Local anesthetic was administered to the access site. A skin hilary was made in the breast. The abnormality was approached from the medial aspect. A 14 gauge biopsy needle was placed adjacent to the abnormality under ultrasound guidance. Once the needle was documented to be in the correct location, 3 passes were made using a spring-loaded biopsy device. A Q biopsy marker was then placed under sonographic guidance. A skin closure strip and a sterile dressing were applied to the access site. During the procedure, there were no biopsy complications observed. The specimens were sent to the laboratory for pathological analysis. Post procedure imaging demonstrates the clip in appropriate position at the biopsy target. The breasts are heterogeneously dense, which may obscure small masses. IMPRESSION IMPRESSION: ULTRASOUND GUIDED BIOPSY Successful ultrasound guided biopsy of the mass at 9 o'clock, retroareolar region in the left breast with placement of a clip . Waiting for pathology results. A final report will be issued when these become available. Interpreting Radiologist: Electronically signed on: 07/07/2024 [employer]: PAT Transcribe Date/Time: Jul 07 2024 10:38A Dictated by : GENNY GUERRERO MD This examination was interpreted and the report reviewed and electronically signed by: STEVE STEINER MD on Jul 07 2024 12:04PM [facility] Radiology Study observation (narrative) [facility] No Panel InformationOrdered By: Ccf Provider on 07-07-2024 [facility] SURGICAL PATHOLOGYon 024 CASE REPORT Normal [facility] Comment on above: Order Comment: Speci men Type: TISSUE SPECIMEN Ordering Facility: [facility] Address: [address] [place] [address] Result Comment: Surg ical Pathology Report Case: [id number] Authorizing Provider: Steve Steiner MD Collected: 07/07/2024 10:13 AM Ordering Location: [facility] Received: 07/07/2024 12:[address] [facility] Pathologist: Daniela Meneses DO Specimen: Breast, Left, Core Biopsy, lt breast, SA/ 9:00, obtained 10:13, in formalin 10:13, 14 gauge marquee, 3 passes, q-clip Performed By: #### S #### [facility] CLIA [id number] [address] [place] [address] [place] CLINICAL HISTORY Ultrasound biopsy LEFT breast subareolar Normal [facility] Comment on above: Order Comment: Speci men Type: TISSUE SPECIMEN Ordering Facility: [facility] Address: [address] [place] [address] Performed By: #### S #### [facility] CLIA [id number] [address] [place] [address] FINAL DIAGNOSIS Normal [facility] Comment on above: Order Comment: Speci men Type: TISSUE SPECIMEN Ordering Facility: [facility] Address: [address] [place] [address] Result Comment: Mary Evon eft breast, 9:00, subareolar, core biopsy with Q clip placement: - Intraductal papilloma. Performed By: #### S #### [facility] CLIA [id number] [address] [place] [address] FINAL PERFORMING LAB Normal [facility] Comment on above: Order Comment: Speci men Type: TISSUE SPECIMEN Ordering Facility: [facility] Address: [address] [place] [address] Result Comment: Diag nostic interpretation performed at [facility], [address] [place] [address] CLIA# [id number] Rn Or Lvn: Freddy Galeana M.D. Performed By: #### S #### [facility] CLIA [id number] [address] [place] [address] GROSS DESCRIPTION Normal [facility] Comment on above: Order Comment: Speci men Type: TISSUE SPECIMEN Ordering Facility: [facility] Address: [address] [place] [address] Result Comment: Mary bobo, Left, Core Biopsy Received in formalin labeled as left breast subareolar 9:00 (Q clip) are multiple irregular segments of yellow-red tissue aggregating to 1.5 x 0.3 x 0.2 cm, yellow and of a rubbery consistency. Totally submitted in one cassette. The specimen was removed from the patient at 10:13 AM on 07/07/2024. On the same day, the specimen was placed in formalin at 10:13 AM. Gross examination performed at [facility], [address] [place] [address] July 07, 2024 2:59 PM Performed By: #### S #### [facility] CLIA [id number] [address] [place] [address] [place] US Guidance for biopsy of Br saundra liao 07-07-2024 IMPRESSION: ULTRASOUND GUIDED BIOPSY Successful ultrasound guided biopsy of the mass at 9 o'clock, retroareolar region in the left breast with placement of a clip . Waiting for pathology results. A final report will be issued when these become available. Interpreting Radiologist: Electronically signed on: 07/07/2024 [employer]: PAT Jain Date/Time: Jul 07 2024 10:29A Dictated by : GENNY GUERRERO MD This examination was interpreted and the report reviewed and electronically signed by: STEVE STEINER MD on Jul 07 2024 12:04PM [facility] * * *Final Report* * * DATE OF EXAM: Jul 07 2024 10:37AM [facility] 0597 - BLADIMIR US BIOPSY BREAST LT / PROCEDURE REASON: Subareolar mass of left breast * * * * Physician Interpretation * * * * [facility] [address] [facility] [place] [address] HISTORY: 79 year old patient presents for ultrasound guided core biopsy of mass at 9 o'clock subareolar position in the left breast. PATIENT CONSENT: A time out was performed immediately prior to procedure start with the radiology team, correctly identifying the patient name, date of , procedure, anatomy (including marking of site and side), patient position, relevant diagnostic and radiology test results, safety precautions, and procedure-specific equipment needs. The procedure was explained to the patient including the risks, benefits and alternatives. Medications and allergies were also reviewed. The risks, including but not limited to infection and bleeding, were reviewed by the performing physician and the patient agreed to undergo the procedure. The radiologist, assisting radiologist, and technologist were present throughout the entire procedure. The food and beverage assistant radiologist was Dr. Guerrero. The food and beverage assistant radiologist administered local anesthesia, performed the tissue sampling and placed the biopsy clip. Correlation is made to exams dated: 04/17/2023 (mammogram), 06/17/2024 (ultrasound) and 06/17/2024 (mammogram). Audible Time Out Time: 1005 hrs Procedure Start Time: 1010 hrs Procedure Stop Time: 1023 hrs An ultrasound guided biopsy using real-time ultrasound was performed for the concerning mass located in the left breast at 9 o'clock retroareolar region. This was described on the previous ultrasound report. The skin was prepped in the usual manner. Local anesthetic was administered to the access site. A skin hilary was made in the breast. The abnormality was approached from the medial aspect. A 14 gauge biopsy needle was placed adjacent to the abnormality under ultrasound guidance. Once the needle was documented to be in the correct location, 3 passes were made using a spring-loaded biopsy device. A Q biopsy marker was then placed under sonographic guidance. A skin closure strip and a sterile dressing were applied to the access site. During the procedure, there were no biopsy complications observed. The specimens were sent to the laboratory for pathological analysis. Post procedure imaging demonstrates the clip in appropriate position at the biopsy target. The breasts are heterogeneously dense, which may obscure small masses. [facility], [facility]/07/[facility] * * *Final Report* * * DATE OF EXAM: Jul 07 2024 10:37AM [facility] 0597 - BLADIMIR US BIOPSY BREAST LT / PROCEDURE REASON: Subareolar mass of left breast * * * * Physician Interpretation * * * * [facility] [address] [facility] [place] [address] HISTORY: 79 year old patient presents for ultrasound guided core biopsy of mass at 9 o'clock subareolar position in the left breast. PATIENT CONSENT: A time out was performed immediately prior to procedure start with the radiology team, correctly identifying the patient name, date of , procedure, anatomy (including marking of site and side), patient position, relevant diagnostic and radiology test results, safety precautions, and procedure-specific equipment needs. The procedure was explained to the patient including the risks, benefits and alternatives. Medications and allergies were also reviewed. The risks, including but not limited to infection and bleeding, were reviewed by the performing physician and the patient agreed to undergo the procedure. The radiologist, assisting radiologist, and technologist were present throughout the entire procedure. The food and beverage assistant radiologist was Dr. Guerrero. The food and beverage assistant radiologist administered local anesthesia, performed the tissue sampling and placed the biopsy clip. Correlation is made to exams dated: 04/17/2023 (mammogram), 06/17/2024 (ultrasound) and 06/17/2024 (mammogram). Audible Time Out Time: 1005 hrs Procedure Start Time: 1010 hrs Procedure Stop Time: 1023 hrs An ultrasound guided biopsy using real-time ultrasound was performed for the concerning mass located in the left breast at 9 o'clock retroareolar region. This was described on the previous ultrasound report. The skin was prepped in the usual manner. Local anesthetic was administered to the access site. A skin hilary was made in the breast. The abnormality was approached from the medial aspect. A 14 gauge biopsy needle was placed adjacent to the abnormality under ultrasound guidance. Once the needle was documented to be in the correct location, 3 passes were made using a spring-loaded biopsy device. A Q biopsy marker was then placed under sonographic guidance. A skin closure strip and a sterile dressing were applied to the access site. During the procedure, there were no biopsy complications observed. The specimens were sent to the laboratory for pathological analysis. Post procedure imaging demonstrates the clip in appropriate position at the biopsy target. The breasts are heterogeneously dense, which may obscure small masses. IMPRESSION IMPRESSION: ULTRASOUND GUIDED BIOPSY Successful ultrasound guided biopsy of the mass at 9 o'clock, retroareolar region in the left breast with placement of a clip . Waiting for pathology results. A final report will be issued when these become available. Interpreting Radiologist: Electronically signed on: 07/07/2024 [employer]: PAT Transcribe Date/Time: Jul 07 2024 10:29A Dictated by : GENNY GUERRERO MD This examination was interpreted and the report reviewed and electronically signed by: STEVE STEINER MD on Jul 07 2024 12:04PM [facility] Radiology Study observation (narrative) [facility] MR Lumbar spine WO contrasto n 06-30-2024 IMPRESSION: Multilevel lumbar spondylosis as described. Up to severe canal stenosis at L3-4. Varying degrees of mild to moderate foraminal stenosis. Multilevel facet arthropathy. Fluid in the facet joints at L1-2, L3-4, and LEFT L4-5 suggests facet synovitis. Anatomic Lumbar Variant: None. L4-5 is considered the level of the iliac crest and assume there are 5 lumbar-type vertebrae. [employer]: ALEKSANDRA Transcribe Date/Time: Jun 30 2024 3:26P Dictated by : IGNACIA ALAN MD This examination was interpreted and the report reviewed and electronically signed by: IGNACIA ALAN MD on Jun 30 2024 3:38PM [facility] DIVISION OF RADIOLOGY * * *Final Report* * * DATE OF EXAM: Jun 30 2024 1:58PM [facility] 0303 - MRI LUMBAR SPINE WO IVCON / PROCEDURE REASON: multiple diagnoses * * * * Physician Interpretation * * * * EXAMINATION: MRI LUMBAR SPINE WO IVCON CLINICAL HISTORY: Spinal stenosis of lumbar region with neurogenic claudication Radiculopathy, lumbar region TECHNIQUE: Routine lumbosacral spine MR protocol without gadolinium. MQ: [id number] COMPARISON: Lumbar spine radiograph 06/30/2024 and 08/09/2014. RESULT: Counting reference: Lumbosacral junction. For the purposes of this report, L4-5 is considered the level of the iliac crest and assume there are 5 lumbar-type vertebrae. Anatomic variant: None. Localizer images: Few hepatic cysts and RIGHT renal cysts. Alignment: Retrolisthesis of L1 on L2. Mild grade 1 anterolisthesis of L4-L5. Bone marrow signal/fracture: Heterogeneous marrow signal which can be seen with osseous demineralization. Multilevel degenerative disc space narrowing throughout the lumbar spine, severe at L5-S1 with partial osseous bridging and moderate to severe at L1-2 and L3-4. Type I degenerative endplate changes at L1-2 and L3-4. No evidence of pathologic marrow infiltration. No evidence of prior fracture. Conus: The conus is within normal limits of signal intensity and morphology. Paraspinal soft tissues: Paraspinal soft tissues are within normal limits. Lower thoracic spine: Visualized lower thoracic canal and foramina are patent. L1-L2: Disc bulge, endplate osteophytes, moderate facet arthropathy, and ligamentum flavum hypertrophy contributes to moderate canal stenosis. Mild to moderate LEFT and mild RIGHT foraminal stenosis. Fluid in the facet joints questionable for synovitis. L2-L3: Diffuse disc bulge. Moderate facet arthropathy and ligamentum flavum hypertrophy. Moderate canal stenosis. Mild bilateral foraminal stenosis. L3-L4: Diffuse disc bulge. Severe facet arthropathy. Fluid in the facet joints questionable for facet synovitis. Severe canal stenosis. Moderate bilateral foraminal stenosis. L4-L5: Circumferential disc bulge. Severe facet arthropathy. Bilateral lateral recess narrowing with abutment of bilateral descending L5 nerve roots, without significant central canal stenosis. Moderate RIGHT and mild LEFT foraminal stenosis. L5-S1: No significant posterior disc bulge. No significant canal stenosis. Moderate facet arthropathy. Mild bilateral foraminal stenosis. Sacrum and iliac wings: Heterogeneous marrow signal likely related to osseous demineralization. The visualized sacrum and iliac wings are otherwise within normal limits. DIVISION OF RADIOLOGY [facility], [facility]/30/[facility]24 * * *Final Report* * * DATE OF EXAM: Jun 30 2024 1:58PM [facility] 0303 - MRI LUMBAR SPINE WO IVCON / PROCEDURE REASON: multiple diagnoses * * * * Physician Interpretation * * * * EXAMINATION: MRI LUMBAR SPINE WO IVCON CLINICAL HISTORY: Spinal stenosis of lumbar region with neurogenic claudication Radiculopathy, lumbar region TECHNIQUE: Routine lumbosacral spine MR protocol without gadolinium. MQ: [id number] COMPARISON: Lumbar spine radiograph 06/30/2024 and 08/09/2014. RESULT: Counting reference: Lumbosacral junction. For the purposes of this report, L4-5 is considered the level of the iliac crest and assume there are 5 lumbar-type vertebrae. Anatomic variant: None. Localizer images: Few hepatic cysts and RIGHT renal cysts. Alignment: Retrolisthesis of L1 on L2. Mild grade 1 anterolisthesis of L4-L5. Bone marrow signal/fracture: Heterogeneous marrow signal which can be seen with osseous demineralization. Multilevel degenerative disc space narrowing throughout the lumbar spine, severe at L5-S1 with partial osseous bridging and moderate to severe at L1-2 and L3-4. Type I degenerative endplate changes at L1-2 and L3-4. No evidence of pathologic marrow infiltration. No evidence of prior fracture. Conus: The conus is within normal limits of signal intensity and morphology. Paraspinal soft tissues: Paraspinal soft tissues are within normal limits. Lower thoracic spine: Visualized lower thoracic canal and foramina are patent. L1-L2: Disc bulge, endplate osteophytes, moderate facet arthropathy, and ligamentum flavum hypertrophy contributes to moderate canal stenosis. Mild to moderate LEFT and mild RIGHT foraminal stenosis. Fluid in the facet joints questionable for synovitis. L2-L3: Diffuse disc bulge. Moderate facet arthropathy and ligamentum flavum hypertrophy. Moderate canal stenosis. Mild bilateral foraminal stenosis. L3-L4: Diffuse disc bulge. Severe facet arthropathy. Fluid in the facet joints questionable for facet synovitis. Severe canal stenosis. Moderate bilateral foraminal stenosis. L4-L5: Circumferential disc bulge. Severe facet arthropathy. Bilateral lateral recess narrowing with abutment of bilateral descending L5 nerve roots, without significant central canal stenosis. Moderate RIGHT and mild LEFT foraminal stenosis. L5-S1: No significant posterior disc bulge. No significant canal stenosis. Moderate facet arthropathy. Mild bilateral foraminal stenosis. Sacrum and iliac wings: Heterogeneous marrow signal likely related to osseous demineralization. The visualized sacrum and iliac wings are otherwise within normal limits. IMPRESSION IMPRESSION: Multilevel lumbar spondylosis as described. Up to severe canal stenosis at L3-4. Varying degrees of mild to moderate foraminal stenosis. Multilevel facet arthropathy. Fluid in the facet joints at L1-2, L3-4, and LEFT L4-5 suggests facet synovitis. Anatomic Lumbar Variant: None. L4-5 is considered the level of the iliac crest and assume there are 5 lumbar-type vertebrae. [employer]: ALEKSANDRA Transcribe Date/Time: Jun 30 2024 3:26P Dictated by : IGNACIA ALAN MD This examination was interpreted and the report reviewed and electronically signed by: IGNACIA ALAN MD on Jun 30 2024 3:38PM EST [facility] Radiology Study observation (narrative) [facility] MR Lumbar spine WO contrastO rdered By: [facility] Provider on 06-30-2024 [facility] DBT Breast - bilateral diagn ostic for implanton 06-17-2024 IMPRESSION: Lesion in the left breast is suspicious of malignancy. An ultrasound guided biopsy is recommended. BI-RADS Category 4: Suspicious RISK: Based on the Tyrer-Cuzick (TC) risk assessment model, this patient has a 2.0% lifetime risk of developing breast cancer, meaning they are at average risk for developing breast cancer. However, this is only an estimate based on available history provided on the patient's questionnaire. We encourage all patients to talk with their providers about these results, further recommendations for managing breast health, and appropriate supplemental screening options if the patient has dense breast tissue. Interpreting Radiologist: Lg Martins M.D. Electronically signed on: 06/17/2024 [employer]: PAT Transcribe Date/Time: Jun 17 2024 1:03P Dictated by: LG MARTINS MD This examination was interpreted and the report reviewed and electronically signed by: LG MARTINS MD on Jun 17 2024 2:42PM [facility] DIVISION OF RADIOLOGY * * *Final Report* * * DATE OF EXAM: Jun 17 2024 1:23PM [facility] 0627 - BLADIMIR DIAG Nevin LING JUANJO / PROCEDURE REASON: multiple diagnoses * * * * Physician Interpretation * * * * RESULT: [place] [address] HISTORY: Patient is 79 years old and is seen for diagnostic evaluation of is asymptomatic in the right breast and non-bloody discharge in the left breast. Patient states no personal history of breast cancer. Patient states no personal history of other cancers. COMPARISON STUDIES: The present examination has been compared to prior imaging studies dated 08/06/2018 (mammogram), 09/30/2019 (mammogram), 02/19/2022 (mammogram), 03/28/2022 (mammogram), 10/03/2022 (mammogram) and 04/17/2023 (mammogram). MAMMOGRAM TECHNIQUE: The study was acquired using full field digital technology and interpreted from soft copy. Digital Breast Tomosynthesis (DBT) images were obtained and used to assist in the interpretation of this examination. Computer-aided detection was utilized by the radiologist in the interpretation of this examination. MAMMOGRAM FINDINGS: The breasts are heterogeneously dense, which may obscure small masses. There are benign calcifications in both breasts. There is no mammographic correlate to account for the nonbloody discharge from the left nipple. Ultrasound is recommended. No suspicious masses, calcifications or other abnormalities are seen in the right breast. ULTRASOUND TECHNIQUE: Targeted ultrasound of the indicated area was performed. Olmos scale images were saved. ULTRASOUND FINDINGS: Ultrasound demonstrates an oval hypoechoic lesion measuring 0.5 x 0.5 x 0.4 cm in the anterior depth region of the left breast at 9 o'clock. No internal vascularity. Differential diagnosis includes a papillary lesion. Lesion appears intraductal in location. This may account for the nonbloody nipple discharge. DIVISION OF RADIOLOGY Provider, [facility] - 06/17/2024 * * *Final Report* * * DATE OF EXAM: Jun 17 2024 1:23PM [facility] 0627 - BLADIMIR ADRIANO LING JUANJO / PROCEDURE REASON: multiple diagnoses * * * * Physician Interpretation * * * * RESULT: [place] [address] [place] [id number] HISTORY: Patient is 79 years old and is seen for diagnostic evaluation of is asymptomatic in the right breast and non-bloody discharge in the left breast. Patient states no personal history of breast cancer. Patient states no personal history of other cancers. COMPARISON STUDIES: The present examination has been compared to prior imaging studies dated 08/06/2018 (mammogram), 09/30/2019 (mammogram), 02/19/2022 (mammogram), 03/28/2022 (mammogram), 10/03/2022 (mammogram) and 04/17/2023 (mammogram). MAMMOGRAM TECHNIQUE: The study was acquired using full field digital technology and interpreted from soft copy. Digital Breast Tomosynthesis (DBT) images were obtained and used to assist in the interpretation of this examination. Computer-aided detection was utilized by the radiologist in the interpretation of this examination. MAMMOGRAM FINDINGS: The breasts are heterogeneously dense, which may obscure small masses. There are benign calcifications in both breasts. There is no mammographic correlate to account for the nonbloody discharge from the left nipple. Ultrasound is recommended. No suspicious masses, calcifications or other abnormalities are seen in the right breast. ULTRASOUND TECHNIQUE: Targeted ultrasound of the indicated area was performed. Olmos scale images were saved. ULTRASOUND FINDINGS: Ultrasound demonstrates an oval hypoechoic lesion measuring 0.5 x 0.5 x 0.4 cm in the anterior depth region of the left breast at 9 o'clock. No internal vascularity. Differential diagnosis includes a papillary lesion. Lesion appears intraductal in location. This may account for the nonbloody nipple discharge. IMPRESSION IMPRESSION: Lesion in the left breast is suspicious of malignancy. An ultrasound guided biopsy is recommended. BI-RADS Category 4: Suspicious RISK: Based on the Tyrer-Cuzick (TC) risk assessment model, this patient has a 2.0% lifetime risk of developing breast cancer, meaning they are at average risk for developing breast cancer. However, this is only an estimate based on available history provided on the patient's questionnaire. We encourage all patients to talk with their providers about these results, further recommendations for managing breast health, and appropriate supplemental screening options if the patient has dense breast tissue. Interpreting Radiologist: Lg Martins M.D. Electronically signed on: 06/17/2024 [employer]: PAT Transcrisreekanth Date/Time: Jun 17 2024 1:03P Dictated by: LG MARTINS MD This examination was interpreted and the report reviewed and electronically signed by: LG MARTINS MD on Jun 17 2024 2:42PM [facility] No Panel InformationOrdered By: Cc Provider on 06-17-2024 [facility] No Panel Informationon 06-17 Radiology Study observation (narrative) [facility] US Breast - left limitedon 1 IMPRESSION: Lesion in the left breast is suspicious of malignancy. An ultrasound guided biopsy is recommended. BI-RADS Category 4: Suspicious RISK: Based on the Tyrer-Cuzick (TC) risk assessment model, this patient has a 2.0% lifetime risk of developing breast cancer, meaning they are at average risk for developing breast cancer. However, this is only an estimate based on available history provided on the patient's questionnaire. We encourage all patients to talk with their providers about these results, further recommendations for managing breast health, and appropriate supplemental screening options if the patient has dense breast tissue. Interpreting Radiologist: Lg Martins M.D. Electronically signed on: 06/17/2024 [employer]: PAT [employer]reekanth Date/Time: Jun 17 2024 1:53P Dictated by : LG MARTINS MD This examination was interpreted and the report reviewed and electronically signed by: LG MARTINS MD on Jun 17 2024 2:42PM [facility] DIVISION OF RADIOLOGY * * *Final Report* * * DATE OF EXAM: Jun 17 2024 2:05PM [facility] 0593 - BLADIMIR US BREAST LTD LT / PROCEDURE REASON: multiple diagnoses * * * * Physician Interpretation * * * * [place] [address] [place] [id number] HISTORY: Patient is 79 years old and is seen for diagnostic evaluation of is asymptomatic in the right breast and non-bloody discharge in the left breast. Patient states no personal history of breast cancer. Patient states no personal history of other cancers. COMPARISON STUDIES: The present examination has been compared to prior imaging studies dated 08/06/2018 (mammogram), 09/30/2019 (mammogram), 02/19/2022 (mammogram), 03/28/2022 (mammogram), 10/03/2022 (mammogram) and 04/17/2023 (mammogram). MAMMOGRAM TECHNIQUE: The study was acquired using full field digital technology and interpreted from soft copy. Digital Breast Tomosynthesis (DBT) images were obtained and used to assist in the interpretation of this examination. Computer-aided detection was utilized by the radiologist in the interpretation of this examination. MAMMOGRAM FINDINGS: The breasts are heterogeneously dense, which may obscure small masses. There are benign calcifications in both breasts. There is no mammographic correlate to account for the nonbloody discharge from the left nipple. Ultrasound is recommended. No suspicious masses, calcifications or other abnormalities are seen in the right breast. ULTRASOUND TECHNIQUE: Targeted ultrasound of the indicated area was performed. Olmos scale images were saved. ULTRASOUND FINDINGS: Ultrasound demonstrates an oval hypoechoic lesion measuring 0.5 x 0.5 x 0.4 cm in the anterior depth region of the left breast at 9 o'clock. No internal vascularity. Differential diagnosis includes a papillary lesion. Lesion appears intraductal in location. This may account for the nonbloody nipple discharge. DIVISION OF RADIOLOGY Provider, [facility] - 06/17/2024 * * *Final Report* * * DATE OF EXAM: Jun 17 2024 2:05PM [facility] 0593 - BLADIMIR BREAST LTD LT / PROCEDURE REASON: multiple diagnoses * * * * Physician Interpretation * * * * [address] [address] HISTORY: Patient is 79 years old and is seen for diagnostic evaluation of is asymptomatic in the right breast and non-bloody discharge in the left breast. Patient states no personal history of breast cancer. Patient states no personal history of other cancers. COMPARISON STUDIES: The present examination has been compared to prior imaging studies dated 08/06/2018 (mammogram), 09/30/2019 (mammogram), 02/19/2022 (mammogram), 03/28/2022 (mammogram), 10/03/2022 (mammogram) and 04/17/2023 (mammogram). MAMMOGRAM TECHNIQUE: The study was acquired using full field digital technology and interpreted from soft copy. Digital Breast Tomosynthesis (DBT) images were obtained and used to assist in the interpretation of this examination. Computer-aided detection was utilized by the radiologist in the interpretation of this examination. MAMMOGRAM FINDINGS: The breasts are heterogeneously dense, which may obscure small masses. There are benign calcifications in both breasts. There is no mammographic correlate to account for the nonbloody discharge from the left nipple. Ultrasound is recommended. No suspicious masses, calcifications or other abnormalities are seen in the right breast. ULTRASOUND TECHNIQUE: Targeted ultrasound of the indicated area was performed. Olmos scale images were saved. ULTRASOUND FINDINGS: Ultrasound demonstrates an oval hypoechoic lesion measuring 0.5 x 0.5 x 0.4 cm in the anterior depth region of the left breast at 9 o'clock. No internal vascularity. Differential diagnosis includes a papillary lesion. Lesion appears intraductal in location. This may account for the nonbloody nipple discharge. IMPRESSION IMPRESSION: Lesion in the left breast is suspicious of malignancy. An ultrasound guided biopsy is recommended. BI-RADS Category 4: Suspicious RISK: Based on the Tyrer-Cuzick (TC) risk assessment model, this patient has a 2.0% lifetime risk of developing breast cancer, meaning they are at average risk for developing breast cancer. However, this is only an estimate based on available history provided on the patient's questionnaire. We encourage all patients to talk with their providers about these results, further recommendations for managing breast health, and appropriate supplemental screening options if the patient has dense breast tissue. Interpreting Radiologist: Lg Martins M.D. Electronically signed on: 06/17/2024 [employer]: PAT Transcribe Date/Time: Jun 17 2024 1:53P Dictated by : LG MARTINS MD This examination was interpreted and the report reviewed and electronically signed by: LG MARTINS MD on Jun 17 2024 2:42PM EST [facility] XR Sacrum and Coccyx 3 Views on 03-19-2024 IMPRESSION: Findings as discussed in results portion of report. No fractures are seen [employer]: ALEKSANDRA Transcribe Date/Time: Mar 19 2024 7:43A Dictated by : LUIS WALLS DO This examination was interpreted and the report reviewed and electronically signed by: LUIS WALLS DO on Mar 19 2024 7:45AM [facility] DIVISION OF RADIOLOGY * * *Final Report* * * DATE OF EXAM: Mar 17 2024 10:26AM [facility] 5246 - XR SACRUM/COCCYX 3V AP/LAT / PROCEDURE REASON: Coccyx pain * * * * Physician Interpretation * * * * EXAM(s): XR SACRUM/COCCYX 3V AP/LAT..... HISTORY: 78 years old Clinical information: Coccyx pain Saturday went to sit in a chair that was not there and landed on tailbone TECHNIQUE: Images: XR SACRUM/COCCYX 3V AP/LAT Comparison: None. RESULT: Findings: Marked degenerative changes in the lower lumbar spine. Marked disc space narrowing lower lumbar spine. Sacroiliac joints are patent. Hip joints are well preserved. No fractures or dislocations are seen. DIVISION OF RADIOLOGY Provider, [facility] - 03/19/2024 * * *Final Report* * * DATE OF EXAM: Mar 17 2024 10:26AM [facility] 5246 - XR SACRUM/COCCYX 3V AP/LAT / PROCEDURE REASON: Coccyx pain * * * * Physician Interpretation * * * * EXAM(s): XR SACRUM/COCCYX 3V AP/LAT..... HISTORY: 78 years old Clinical information: Coccyx pain Saturday went to sit in a chair that was not there and landed on tailbone TECHNIQUE: Images: XR SACRUM/COCCYX 3V AP/LAT Comparison: None. RESULT: Findings: Marked degenerative changes in the lower lumbar spine. Marked disc space narrowing lower lumbar spine. Sacroiliac joints are patent. Hip joints are well preserved. No fractures or dislocations are seen. IMPRESSION IMPRESSION: Findings as discussed in results portion of report. No fractures are seen [employer]: ALEKSANDRA Transcribe Date/Time: Mar 19 2024 7:43A Dictated by : LUIS WALLS DO This examination was interpreted and the report reviewed and electronically signed by: LUIS WALLS DO on Mar 19 2024 7:45AM EST [facility] XR Sacrum and Coccyx 3 Views Ordered By: [facility] Provider on 03-19-2024 [facility] XR Sacrum and Coccyx 3 Views on 03-17-2024 Radiology Study observation (narrative) [facility] XR KNEE 3V AP/LAT/MERCHANT L [place] 12-10-2023 XR KNEE 3V AP/LAT/MERCHANT LT * * *Final Report* * * DATE OF EXAM: Dec 10 2023 10:47AM [facility] 5208 - XR KNEE 3V AP/LAT/MERCHANT LT / PROCEDURE REASON: M25.562-Left knee pain, unspecified chronicity * * * * Physician Interpretation * * * * PROCEDURE: Left knee INDICATION: Left knee pain, unspecified chronicity .left knee pain TECHNIQUE: XR KNEE 3V AP/LAT/MERCHANT LT COMPARISON: 09/07/2021 FINDINGS: The arthroplasty with antibiotic spacer appears similar to the prior study. There is mild increased lucency at the bone cement interface of the femoral component suggesting hardware loosening. No periprosthetic fracture. Small suprapatellar joint effusion. 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 IMPRESSION: Concern for loosening of the femoral component. Significant deformity and lateral subluxation of the patella, new since the prior study but chronic in appearance. [employer]: ALEKSANDRA Transcribe Date/Time: Dec 10 2023 4:37P Dictated by : SAM LONG MD This examination was interpreted and the report reviewed and electronically signed by: SAM LONG MD on Dec 10 2023 4:40PM EST [id number] N [facility] XR Knee AP and Lateral and M fly 12-10-2023 IMPRESSION: Concern for loosening of the femoral component. Significant deformity and lateral subluxation of the patella, new since the prior study but chronic in appearance. [employer]: [facility] Transcribe Date/Time: Dec 10 2023 4:37P Dictated by : SAM LONG MD This examination was interpreted and the report reviewed and electronically signed by: SAM LONG MD on Dec 10 2023 4:40PM [facility] RADIOLOGY * * *Final Report* * * DATE OF EXAM: Dec 10 2023 10:47AM [facility] 5208 - XR KNEE 3V AP/LAT/MERCHANT LT / PROCEDURE REASON: M25.562-Left knee pain, unspecified chronicity * * * * Physician Interpretation * * * * PROCEDURE: Left knee INDICATION: Left knee pain, unspecified chronicity .left knee pain TECHNIQUE: XR KNEE 3V AP/LAT/MERCHANT LT COMPARISON: 09/07/2021 FINDINGS: The arthroplasty with antibiotic spacer appears similar to the prior study. There is mild increased lucency at the bone cement interface of the femoral component suggesting hardware loosening. No periprosthetic fracture. Small suprapatellar joint effusion. 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 [place] RADIOLOGY Provider, [facility] - 12/10/2023 * * *Final Report* * * DATE OF EXAM: Dec 10 2023 10:47AM [facility] 5208 - XR KNEE 3V AP/LAT/MERCHANT LT / PROCEDURE REASON: M25.562-Left knee pain, unspecified chronicity * * * * Physician Interpretation * * * * PROCEDURE: Left knee INDICATION: Left knee pain, unspecified chronicity .left knee pain TECHNIQUE: XR KNEE 3V AP/LAT/MERCHANT LT COMPARISON: 09/07/2021 FINDINGS: The arthroplasty with antibiotic spacer appears similar to the prior study. There is mild increased lucency at the bone cement interface of the femoral component suggesting hardware loosening. No periprosthetic fracture. Small suprapatellar joint effusion. 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 IMPRESSION IMPRESSION: Concern for loosening of the femoral component. Significant deformity and lateral subluxation of the patella, new since the prior study but chronic in appearance. [employer]: ALEKSANDRA Transcribe Date/Time: Dec 10 2023 4:37P Dictated by : SAM LONG MD This examination was interpreted and the report reviewed and electronically signed by: SAM LOGN MD on Dec 10 2023 4:40PM [facility] Radiology Study observation (narrative) [facility] XR Knee AP and Lateral and M erchantsOrdered By: [facility] Provider on 12-10-2023 [facility] XR Chest PA and Lateralon IMPRESSION: Stable exam with no acute radiographic abnormality. [employer]: ALEKSANDRA Transcribe Date/Time: Aug 23 2023 1:38P Dictated by : DHARMESH IRAHETA MD This examination was interpreted and the report reviewed and electronically signed by: DHARMESH IRAHETA MD on Aug 23 2023 1:38PM [facility] DIVISION OF RADIOLOGY * * *Final Report* * * DATE OF EXAM: Aug 23 2023 1:31PM [facility] 5291 - XR CHEST 2V FRONTAL/LAT / PROCEDURE REASON: Acute cough * * * * Physician Interpretation * * * * EXAMINATION: CHEST RADIOGRAPH (2 VIEW FRONTAL & LATERAL) CLINICAL HISTORY: Acute cough MQ: XC2_6 EXAM DATE/TIME: 08/23/2023 1:31 PM COMPARISON: 11/22/2020. RESULT: Lines, tubes, and devices: None. Lungs and pleura: No consolidation. No lung mass. No pleural effusion. No pneumothorax. Cardiomediastinal silhouette: Normal cardiomediastinal silhouette. Bones and soft tissues: Unremarkable. DIVISION OF RADIOLOGY Provider, [facility] - 08/23/2023 * * *Final Report* * * DATE OF EXAM: Aug 23 2023 1:31PM [facility] 5291 - XR CHEST 2V FRONTAL/LAT / PROCEDURE REASON: Acute cough * * * * Physician Interpretation * * * * EXAMINATION: CHEST RADIOGRAPH (2 VIEW FRONTAL & LATERAL) CLINICAL HISTORY: Acute cough MQ: XC2_6 EXAM DATE/TIME: 08/23/2023 1:31 PM COMPARISON: 11/22/2020. RESULT: Lines, tubes, and devices: None. Lungs and pleura: No consolidation. No lung mass. No pleural effusion. No pneumothorax. Cardiomediastinal silhouette: Normal cardiomediastinal silhouette. Bones and soft tissues: Unremarkable. IMPRESSION IMPRESSION: Stable exam with no acute radiographic abnormality. [employer]: ALEKSANDRA Transcribe Date/Time: Aug 23 2023 1:38P Dictated by : DHARMESH IRAHETA MD This examination was interpreted and the report reviewed and electronically signed by: DHARMESH IRAHETA MD on Aug 23 2023 1:38PM EST [facility] Radiology Study observation (narrative) [facility] XR Chest PA and LateralOrder ed By: [facility] Provider on 08-23-2023 [facility] BLADIMIR DIAGNOSTIC BILATon 04-17 [facility] MRI PANC/JUANJO WO/W IVCONon [facility] BLADIMIR DIAGNOSTIC RTon 10-03-19 [facility] BLADIMIR DIAGNOSTIC RTon 03-28-20 [facility] BLADIMIR SCREENINGon 02-19-2022 [facility] Vital Signs Date Time Vital Sign Value Performing Clinician Faci lity 04-22-2025 08:35-0400 Diastolic blood pressure 68 mm[Hg] Afia Suppan WATER MECHANIC.ROOF BOLTER OPERATOR Work Phone: [facility] 04-22-2025 08:35-0400 Systolic blood pressure 138 mm[Hg] Afia Suppan WATER MECHANIC.ROOF BOLTER OPERATOR Work Phone: [facility] 04-22-2025 08:16-0400 Body mass index (BMI) [Ratio] 25.06 kg/m2 Afia Suppan WATER MECHANIC.ROOF BOLTER OPERATOR Work Phone: [facility] 04-22-2025 08:16-0400 Body weight 72.58 kg Afia Suppan WATER MECHANIC.ROOF BOLTER OPERATOR Work Phone: [facility] 04-22-2025 08:16-0400 Heart rate 76 /min Afia Suppan WATER MECHANIC.ROOF BOLTER OPERATOR Work Phone: [facility] 04-22-2025 08:16-0400 SaO2% (BldA) [Mass fraction] 99 % Afia Suppan WATER MECHANIC.ROOF BOLTER OPERATOR Work Phone: [facility] 02-05-2025 12:50-0400 Body mass index (BMI) [Ratio] 25.37 kg/m2 Afia Suppan WATER MECHANIC.ROOF BOLTER OPERATOR Work Phone: [facility] 02-05-2025 12:50-0400 Body weight 73.48 kg Afia Suppan WATER MECHANIC.ROOF BOLTER OPERATOR Work Phone: [facility] 02-05-2025 12:50-0400 Diastolic blood pressure 82 mm[Hg] Afia Suppan WATER MECHANIC.ROOF BOLTER OPERATOR Work Phone: [facility] 02-05-2025 12:50-0400 Heart rate 79 /min Afia Suppan WATER MECHANIC.ROOF BOLTER OPERATOR Work Phone: [facility] 02-05-2025 12:50-0400 SaO2% (BldA) [Mass fraction] 98 % Afia Suppan WATER MECHANIC.ROOF BOLTER OPERATOR Work Phone: [facility] 02-05-2025 12:50-0400 Systolic blood pressure 132 mm[Hg] Afia Suppan WATER MECHANIC.ROOF BOLTER OPERATOR Work Phone: [facility] 12-08-2024 15:52-0400 Diastolic blood pressure 80 mm[Hg] Dominga Haagen WATER MECHANIC.ROOF BOLTER OPERATOR Work Phone: [facility] 12-08-2024 15:52-0400 Heart rate 76 /min Dominga Haagen WATER MECHANIC.ROOF BOLTER OPERATOR Work Phone: [facility] 12-08-2024 15:52-0400 Respiratory rate 16 /min Dominga Haagen WATER MECHANIC.ROOF BOLTER OPERATOR Work Phone: [facility] 12-08-2024 15:52-0400 SaO2% (BldA) [Mass fraction] 95 % Dominga Haagen WATER MECHANIC.ROOF BOLTER OPERATOR Work Phone: [facility] 12-08-2024 15:52-0400 Systolic blood pressure 142 mm[Hg] Dominga Haagen WATER MECHANIC.ROOF BOLTER OPERATOR Work Phone: [facility] 11-23-2024 08:51-0400 Body height 170.2 cm Francisco Brooks MD Work Phone: [facility] 11-23-2024 08:51-0400 Body mass index (BMI) [Ratio] 26.31 kg/m2 Francisco Brooks MD Work Phone: [facility] 11-23-2024 08:51-0400 Body weight 76.2 kg Francisco Brooks MD Work Phone: [facility] 11-23-2024 08:51-0400 Diastolic blood pressure 84 mm[Hg] Francisco Brooks MD Work Phone: [facility] 11-23-2024 08:51-0400 Heart rate 82 /min Francisco Brooks MD Work Phone: [facility] 11-23-2024 08:51-0400 Respiratory rate 12 /min Francisco Brooks MD Work Phone: [facility] 11-23-2024 08:51-0400 SaO2% (BldA) [Mass fraction] 98 % Francisco Brooks MD Work Phone: [facility] 11-23-2024 08:51-0400 Systolic blood pressure 162 mm[Hg] Francisco Brooks MD Work Phone: [facility] 11-22-2024 12:21-0400 Body mass index (BMI) [Ratio] 26.41 kg/m2 Raul Clutter PA-C Work Phone: [facility] 11-22-2024 12:21-0400 Body temperature 97.3 [degF] Raul Clutter PA-C Work Phone: [facility] 11-22-2024 12:21-0400 Body weight 76.5 kg Raul Clutter PA-C Work Phone: [facility] 11-22-2024 12:21-0400 Diastolic blood pressure 84 mm[Hg] Raul Clutter PA-C Work Phone: [facility] 11-22-2024 12:21-0400 Heart rate 86 /min Raul Clutter PA-C Work Phone: [facility] 11-22-2024 12:21-0400 Respiratory rate 16 /min Raul Clutter PA-C Work Phone: [facility] 11-22-2024 12:21-0400 SaO2% (BldA) [Mass fraction] 97 % Raul Clutter PA-C Work Phone: [facility] 11-22-2024 12:21-0400 Systolic blood pressure 130 mm[Hg] Raul Anne PA-C Work Phone: [facility] 10-23-2024 08:58-0500 Body mass index (BMI) [Ratio] 25.69 kg/m2 Afia Suppan WATER MECHANIC.ROOF BOLTER OPERATOR Work Phone: [facility] 10-23-2024 08:58-0500 Body temperature 97 [degF] Afia Suppan WATER MECHANIC.ROOF BOLTER OPERATOR Work Phone: [facility] 10-23-2024 08:58-0500 Body weight 74.39 kg Afia Suppan WATER MECHANIC.ROOF BOLTER OPERATOR Work Phone: [facility] 10-23-2024 08:58-0500 Diastolic blood pressure 76 mm[Hg] Afia Suppan WATER MECHANIC.ROOF BOLTER OPERATOR Work Phone: [facility] 10-23-2024 08:58-0500 Heart rate 70 /min Afia Suppan WATER MECHANIC.ROOF BOLTER OPERATOR Work Phone: [facility] 10-23-2024 08:58-0500 SaO2% (BldA) [Mass fraction] 97 % Afia Suppan WATER MECHANIC.ROOF BOLTER OPERATOR Work Phone: [facility] 10-23-2024 08:58-0500 Systolic blood pressure 132 mm[Hg] Afia Suppan WATER MECHANIC.ROOF BOLTER OPERATOR Work Phone: [facility] 08-27-2024 12:32-0500 Body mass index (BMI) [Ratio] 25.21 kg/m2 Salma Medina PA-C Work Phone: [facility] 08-27-2024 12:32-0500 Body weight 73 kg Salma Medina PA-C Work Phone: [facility] 08-27-2024 12:32-0500 Diastolic blood pressure 80 mm[Hg] Salma Medina PA-C Work Phone: [facility] 08-27-2024 12:32-0500 Heart rate 65 /min Salma Medina PA-C Work Phone: [facility] 08-27-2024 12:32-0500 Respiratory rate 16 /min Salma Medina PA-C Work Phone: [facility] 08-27-2024 12:32-0500 SaO2% (BldA) [Mass fraction] 98 % Salma Medina PA-C Work Phone: [facility] 08-27-2024 12:32-0500 Systolic blood pressure 140 mm[Hg] Salma Medina PA-C Work Phone: [facility] 08-12-2024 13:49-0500 Diastolic blood pressure 70 mm[Hg] Dilshad Finelli DO Work Phone: [facility] 08-12-2024 13:49-0500 Systolic blood pressure 120 mm[Hg] Dilshad Finelli DO Work Phone: [facility] 08-12-2024 13:48-0500 Body mass index (BMI) [Ratio] 25.06 kg/m2 Dilshad Finelli DO Work Phone: [facility] 08-12-2024 13:48-0500 Body weight 72.58 kg Dilshad Finelli DO Work Phone: [facility] 08-12-2024 13:48-0500 Heart rate 70 /min Dilshad Finelli DO Work Phone: [facility] 08-12-2024 13:48-0500 SaO2% (BldA) [Mass fraction] 98 % Dilshad Finelli DO Work Phone: [facility] 07-31-2024 14:59-0500 Body height 167.6 cm Pacc 1 Work Phone: [facility] 07-31-2024 14:59-0500 Body mass index (BMI) [Ratio] 26.63 kg/m2 Pacc 1 Work Phone: [facility] 07-31-2024 14:59-0500 Body temperature 97.7 [degF] Pacc 1 Work Phone: [facility] 07-31-2024 14:59-0500 Body weight 74.84 kg Pacc 1 Work Phone: [facility] 07-31-2024 14:59-0500 Diastolic blood pressure 92 mm[Hg] Pacc 1 Work Phone: [facility] 07-31-2024 14:59-0500 Heart rate 66 /min Pacc 1 Work Phone: [facility] 07-31-2024 14:59-0500 Respiratory rate 14 /min Pacc 1 Work Phone: [facility] 07-31-2024 14:59-0500 SaO2% (BldA) [Mass fraction] 97 % Pacc 1 Work Phone: [facility] 07-31-2024 14:59-0500 Systolic blood pressure 130 mm[Hg] Pacc 1 Work Phone: [facility] 07-29-2024 10:01-0500 Body mass index (BMI) [Ratio] 25.84 kg/m2 Dilshad Finelli DO Work Phone: [facility] 07-29-2024 10:01-0500 Body weight 74.84 kg Dilshad Finelli DO Work Phone: [facility] 07-29-2024 10:01-0500 Diastolic blood pressure 75 mm[Hg] Dilshad Finelli DO Work Phone: [facility] 07-29-2024 10:01-0500 Heart rate 73 /min Dilshad Finelli DO Work Phone: [facility] 07-29-2024 10:01-0500 SaO2% (BldA) [Mass fraction] 98 % Dilshad Finelli DO Work Phone: [facility] 07-29-2024 10:01-0500 Systolic blood pressure 158 mm[Hg] Dilshad Finelli DO Work Phone: [facility] 07-09-2024 15:26-0500 Diastolic blood pressure 81 mm[Hg] Salma Medina PA-C Work Phone: [facility] 07-09-2024 15:26-0500 Heart rate 73 /min Salma Medina PA-C Work Phone: [facility] 07-09-2024 15:26-0500 SaO2% (BldA) [Mass fraction] 99 % Salma Medina PA-C Work Phone: [facility] 07-09-2024 15:26-0500 Systolic blood pressure 138 mm[Hg] Salma Medina PA-C Work Phone: [facility] 06-24-2024 11:52-0400 Body height 170.2 cm Dilshad Finelli DO Work Phone: [facility] 06-24-2024 11:52-0400 Body mass index (BMI) [Ratio] 25.84 kg/m2 Dilshad Finelli DO Work Phone: [facility] 06-24-2024 11:52-0400 Body temperature 97.39 [degF] Dilshad Finelli DO Work Phone: [facility] 06-24-2024 11:52-0400 Body weight 74.84 kg Dilshad Finelli DO Work Phone: [facility] 06-24-2024 11:52-0400 Diastolic blood pressure 84 mm[Hg] Dilshad Finelli DO Work Phone: [facility] 06-24-2024 11:52-0400 Heart rate 84 /min Dilshad Finelli DO Work Phone: [facility] 06-24-2024 11:52-0400 SaO2% (BldA) [Mass fraction] 99 % Dilshad Finelli DO Work Phone: [facility] 06-24-2024 11:52-0400 Systolic blood pressure 124 mm[Hg] Dilshad Finelli DO Work Phone: [facility] 05-29-2024 13:44-0400 Body height 170.2 cm Salma Medina PA-C Work Phone: [facility] 05-29-2024 13:44-0400 Body mass index (BMI) [Ratio] 25.66 kg/m2 Salma Medina PA-C Work Phone: [facility] 05-29-2024 13:44-0400 Body weight 74.3 kg Salma Medina PA-C Work Phone: [facility] 05-29-2024 13:44-0400 Diastolic blood pressure 71 mm[Hg] Salma Medina PA-C Work Phone: [facility] 05-29-2024 13:44-0400 Heart rate 71 /min Salma Medina PA-C Work Phone: [facility] 05-29-2024 13:44-0400 SaO2% (BldA) [Mass fraction] 98 % Salma Medina PA-C Work Phone: [facility] 05-29-2024 13:44-0400 Systolic blood pressure 125 mm[Hg] Salma Medina PA-C Work Phone: [facility] 04-23-2024 09:01-0400 Body mass index (BMI) [Ratio] 25.82 kg/m2 Afia Schafer WATER MECHANIC.ROOF BOLTER OPERATOR Work Phone: [facility] 04-23-2024 09:01-0400 Body weight 72.58 kg Afia Suppesmer WATER MECHANIC.ROOF BOLTER OPERATOR Work Phone: [facility] 04-23-2024 09:01-0400 Diastolic blood pressure 68 mm[Hg] Afia Suppan WATER MECHANIC.ROOF BOLTER OPERATOR Work Phone: [facility] 04-23-2024 09:01-0400 Heart rate 74 /min Afia Suppan WATER MECHANIC.ROOF BOLTER OPERATOR Work Phone: [facility] 04-23-2024 09:01-0400 SaO2% (BldA) [Mass fraction] 98 % Afia Suppan WATER MECHANIC.ROOF BOLTER OPERATOR Work Phone: [facility] 04-23-2024 09:01-0400 Systolic blood pressure 112 mm[Hg] Afia Schafer WATER MECHANIC.ROOF BOLTER OPERATOR Work Phone: [facility] 03-17-2024 09:34-0400 Diastolic blood pressure 80 mm[Hg] Dominga Haagen WATER MECHANIC.ROOF BOLTER OPERATOR Work Phone: [facility] 03-17-2024 09:34-0400 Heart rate 76 /min Dominga Haagen WATER MECHANIC.ROOF BOLTER OPERATOR Work Phone: [facility] 03-17-2024 09:34-0400 Respiratory rate 18 /min Dominga Haagen WATER MECHANIC.ROOF BOLTER OPERATOR Work Phone: [facility] 03-17-2024 09:34-0400 SaO2% (BldA) [Mass fraction] 98 % Dominga Haagen WATER MECHANIC.ROOF BOLTER OPERATOR Work Phone: [facility] 03-17-2024 09:34-0400 Systolic blood pressure 136 mm[Hg] Dominga Haagen WATER MECHANIC.ROOF BOLTER OPERATOR Work Phone: [facility] 03-09-2024 12:39-0400 Body mass index (BMI) [Ratio] 25.66 kg/m2 Nataliya Podlogar WATER MECHANIC.ROOF BOLTER OPERATOR Work Phone: [facility] 03-09-2024 12:39-0400 Body weight 72.12 kg Nataliya Podlogar WATER MECHANIC.ROOF BOLTER OPERATOR Work Phone: [facility] 03-09-2024 12:39-0400 Diastolic blood pressure 66 mm[Hg] Nataliya Podlogar WATER MECHANIC.ROOF BOLTER OPERATOR Work Phone: [facility] 03-09-2024 12:39-0400 Heart rate 76 /min Nataliya Podlogar WATER MECHANIC.ROOF BOLTER OPERATOR Work Phone: [facility] 03-09-2024 12:39-0400 Respiratory rate 18 /min Nataliya Podlogar WATER MECHANIC.ROOF BOLTER OPERATOR Work Phone: [facility] 03-09-2024 12:39-0400 SaO2% (BldA) [Mass fraction] 97 % Nataliya Podlogar WATER MECHANIC.ROOF BOLTER OPERATOR Work Phone: [facility] 03-09-2024 12:39-0400 Systolic blood pressure 136 mm[Hg] Nataliya Pederson WATER MECHANIC.ROOF BOLTER OPERATOR Work Phone: [facility] 01-02-2024 10:04-0400 Body height 167.6 cm Salma CERVANTES-C Work Phone: [facility] 01-02-2024 10:04-0400 Body mass index (BMI) [Ratio] 25.76 kg/m2 Salma CERVANTES-C Work Phone: [facility] 01-02-2024 10:04-0400 Body weight 72.4 kg Salma CERVANTES-C Work Phone: [facility] 01-02-2024 10:04-0400 Diastolic blood pressure 81 mm[Hg] Salma CERVANTES-C Work Phone: [facility] 01-02-2024 10:04-0400 Heart rate 71 /min Salma CERVANTES-C Work Phone: [facility] 01-02-2024 10:04-0400 SaO2% (BldA) [Mass fraction] 99 % Salma CERVANTES-C Work Phone: [facility] 01-02-2024 10:04-0400 Systolic blood pressure 147 mm[Hg] Salma CERVANTES-C Work Phone: [facility] 07-25-2023 11:06-0500 Body weight 71.2 kg Beck Alejandra DO Work Phone: [facility] 07-25-2023 11:06-0500 Diastolic blood pressure 62 mm[Hg] Beck Alejandra DO Work Phone: [facility] 07-25-2023 11:06-0500 Heart rate 75 /min Beck Rolandfitkitty DO Work Phone: [facility] 07-25-2023 11:06-0500 SaO2% (BldA) [Mass fraction] 99 % Beck Alejandra DO Work Phone: [facility] 07-25-2023 11:06-0500 Systolic blood pressure 130 mm[Hg] Beck Alejandra DO Work Phone: [facility] 07-01-2023 11:24-0500 Body temperature 96.91 [degF] Virginia Grimes WATER MECHANIC.ROOF BOLTER OPERATOR Work Phone: [facility] 07-01-2023 11:24-0500 Body weight 71.67 kg Virginia Grimes WATER MECHANIC.ROOF BOLTER OPERATOR Work Phone: [facility] 07-01-2023 11:24-0500 Diastolic blood pressure 80 mm[Hg] Virginia Grimes WATER MECHANIC.ROOF BOLTER OPERATOR Work Phone: [facility] 07-01-2023 11:24-0500 Heart rate 74 /min Virginia Grimes WATER MECHANIC.ROOF BOLTER OPERATOR Work Phone: [facility] 07-01-2023 11:24-0500 Respiratory rate 16 /min Virginia Grimes WATER MECHANIC.ROOF BOLTER OPERATOR Work Phone: [facility] 07-01-2023 11:24-0500 SaO2% (BldA) [Mass fraction] 96 % Virginia Grimes WATER MECHANIC.ROOF BOLTER OPERATOR Work Phone: [facility] 07-01-2023 11:24-0500 Systolic blood pressure 124 mm[Hg] Virginia Grimes WATER MECHANIC.ROOF BOLTER OPERATOR Work Phone: [facility] 02-20-2023 09:44-0400 Body weight 68.95 kg Dominga Haagen WATER MECHANIC.ROOF BOLTER OPERATOR Work Phone: [facility] 02-20-2023 09:44-0400 Diastolic blood pressure 74 mm[Hg] Dominga Haagen WATER MECHANIC.ROOF BOLTER OPERATOR Work Phone: [facility] 02-20-2023 09:44-0400 Heart rate 53 /min Dominga Haagen WATER MECHANIC.ROOF BOLTER OPERATOR Work Phone: [facility] 02-20-2023 09:44-0400 Respiratory rate 16 /min Dominga Haagen WATER MECHANIC.ROOF BOLTER OPERATOR Work Phone: [facility] 02-20-2023 09:44-0400 SaO2% (BldA) [Mass fraction] 97 % Dominga Ann APRN.ROOF BOLTER OPERATOR Work Phone: [facility] 02-20-2023 09:44-0400 Systolic blood pressure 126 mm[Hg] Dominga Ann APRN.ROOF BOLTER OPERATOR Work Phone: [facility] 01-22-2023 12:05-0400 Body height 165.1 cm Beck Amalfitkitty DO Work Phone: [facility] 01-22-2023 12:05-0400 Body weight 68.49 kg Beck Amalfitano DO Work Phone: [facility] 01-22-2023 12:05-0400 Diastolic blood pressure 68 mm[Hg] Beck Amalfitkitty DO Work Phone: [facility] 01-22-2023 12:05-0400 Heart rate 81 /min Beck Amalfitkitty DO Work Phone: [facility] 01-22-2023 12:05-0400 SaO2% (BldA) [Mass fraction] 98 % Beck Amalfitkitty DO Work Phone: [facility] 01-22-2023 12:05-0400 Systolic blood pressure 136 mm[Hg] Beck Amalfitkitty DO Work Phone: [facility] 07-10-2022 09:58-0500 Body weight 68.49 kg Denisa Romero APRN.ROOF BOLTER OPERATOR Work Phone: [facility] 07-10-2022 09:58-0500 Diastolic blood pressure 78 mm[Hg] Denisa Romero APRN.ROOF BOLTER OPERATOR Work Phone: [facility] 07-10-2022 09:58-0500 Heart rate 63 /min Denisa Romero APRN.ROOF BOLTER OPERATOR Work Phone: [facility] 07-10-2022 09:58-0500 Respiratory rate 14 /min Denisa Romero APRN.ROOF BOLTER OPERATOR Work Phone: [facility] 07-10-2022 09:58-0500 SaO2% (BldA) [Mass fraction] 99 % Denisa Romero WATER MECHANIC.ROOF BOLTER OPERATOR Work Phone: [facility] 07-10-2022 09:58-0500 Systolic blood pressure 132 mm[Hg] Denisa Romero WATER MECHANIC.ROOF BOLTER OPERATOR Work Phone: [facility] 07-04-2022 13:23-0500 Body height 170.2 cm Agueda Jc WATER MECHANIC.ROOF BOLTER OPERATOR Work Phone: [facility] 07-04-2022 13:23-0500 Body weight 68.49 kg Agueda Jc WATER MECHANIC.ROOF BOLTER OPERATOR Work Phone: [facility] 07-04-2022 13:23-0500 Diastolic blood pressure 62 mm[Hg] Agueda Jc WATER MECHANIC.ROOF BOLTER OPERATOR Work Phone: [facility] 07-04-2022 13:23-0500 Heart rate 71 /min Agueda Jc WATER MECHANIC.ROOF BOLTER OPERATOR Work Phone: [facility] 07-04-2022 13:23-0500 SaO2% (BldA) [Mass fraction] 99 % Agueda Jc WATER MECHANIC.ROOF BOLTER OPERATOR Work Phone: [facility] 07-04-2022 13:23-0500 Systolic blood pressure 128 mm[Hg] Agueda Jc WATER MECHANIC.ROOF BOLTER OPERATOR Work Phone: [facility] 05-03-2022 11:18-0400 Body height 166.4 cm Gee Cantu WATER MECHANIC.ROOF BOLTER OPERATOR Work Phone: [facility] 05-03-2022 11:18-0400 Body weight 69.85 kg Gee Grater WATER MECHANIC.ROOF BOLTER OPERATOR Work Phone: [facility] 04-12-2022 11:45-0400 Body weight 69.85 kg NA Bellamy PA-C Work Phone: [facility] 04-12-2022 11:45-0400 Diastolic blood pressure 64 mm[Hg] NA Bellamy PA-C Work Phone: [facility] 04-12-2022 11:45-0400 Heart rate 74 /min NA Bellamy PA-C Work Phone: [facility] 04-12-2022 11:45-0400 Respiratory rate 16 /min NA Bellamy PA-C Work Phone: [facility] 04-12-2022 11:45-0400 SaO2% (BldA) [Mass fraction] 96 % NA Bellamy PA-C Work Phone: [facility] 04-12-2022 11:45-0400 Systolic blood pressure 122 mm[Hg] NA Bellamy PA-C Work Phone: [facility] 03-28-2022 10:53-0400 Body height 166.4 cm Yash Masci DO Work Phone: [facility] 03-28-2022 10:53-0400 Body temperature 97.11 [degF] Yash Masci DO Work Phone: [facility] 03-28-2022 10:53-0400 Body weight 70.99 kg Yash Masci DO Work Phone: [facility] 03-28-2022 10:53-0400 Diastolic blood pressure 50 mm[Hg] Yash Masci DO Work Phone: [facility] 03-28-2022 10:53-0400 Heart rate 65 /min Yash Masci DO Work Phone: [facility] 03-28-2022 10:53-0400 Systolic blood pressure 120 mm[Hg] Yash Masci DO Work Phone: [facility] 01-01-2022 18:00-0400 Body weight 72.21 kg Dominga Ann WATER MECHANIC.ROOF BOLTER OPERATOR Work Phone: [facility] 01-01-2022 18:00-0400 Diastolic blood pressure 68 mm[Hg] Dominga Ann WATER MECHANIC.ROOF BOLTER OPERATOR Work Phone: [facility] 01-01-2022 18:00-0400 Heart rate 84 /min Dominga Ann WATER MECHANIC.ROOF BOLTER OPERATOR Work Phone: [facility] 01-01-2022 18:00-0400 Respiratory rate 18 /min Dominga Ann WATER MECHANIC.ROOF BOLTER OPERATOR Work Phone: [facility] 01-01-2022 18:00-0400 SaO2% (BldA) [Mass fraction] 98 % Dominga Ann WATER MECHANIC.ROOF BOLTER OPERATOR Work Phone: [facility] 01-01-2022 18:00-0400 Systolic blood pressure 140 mm[Hg] Dominga Ann WATER MECHANIC.ROOF BOLTER OPERATOR Work Phone: [facility] Encounters Encounter Date Encounter Type Care Provider Facility Start: 06-30-2025 End: 06-30-2025 ambulatory AFIA A SUPPAN Facility:[facility] Start: 06-23-2025 End: 06-23-2025 ambulatory [facility] Facility:[facility] Start: 06-16-2025 End: 06-16-2025 ambulatory [facility] Facility:[facility] Start: 06-09-2025 End: 06-09-2025 ambulatory AFIA A SUPPAN Facility:[facility] Start: 05-28-2025 End: 05-28-2025 ambulatory AFIA A SUPPAN Facility:[facility] Start: 05-13-2025 ambulatory AFIA A SUPPAN Fac ility:[facility] Start: 05-10-2025 End: 05-11-2025 ambulatory Afia A Suppan WATER MECHANIC.ROOF BOLTER OPERATOR Work Phone: [facility] Comment on above: Result of stopping m eds per last visit Start: 04-23-2025 End: 04-23-2025 Follow-up encounter Afia A Suppan WATER MECHANIC.ROOF BOLTER OPERATOR Work Phone: [facility] Start: 04-22-2025 End: 04-22-2025 ambulatory AFIA A SUPPAN Facility:[facility] Start: 04-22-2025 End: 04-22-2025 Office outpatient visit 25 minutes Afia A Suppan WATER MECHANIC.ROOF BOLTER OPERATOR Work Phone: [facility] Comment on above: Myalgia (Primary Dx) ; Gastroesophageal reflux disease without esophagitis; Primary hypertension; Mixed hyperlipidemia; Migraine without aura, not intractable, without status migrainosus; Hot flashes; Seasonal allergic rhinitis, unspecified trigger; Prediabetes; Stage 3b chronic kidney disease (HCC); Bilateral impacted cerumen Start: 04-22-2025 End: 04-22-2025 ambulatory AFIA A SUPPAN Facility:[facility] Start: 03-24-2025 End: 03-24-2025 ambulatory Nikki Aponte RN Work Phone: [facility] [employer] Comment on above: Covid19 Concern Start: 02-10-2025 ambulatory MATTHIAS DIAS Facility :[facility] Start: 02-10-2025 End: 02-10-2025 Subsequent hospital visit by physician Diagnostic Mammo [facility] Start: 02-05-2025 End: 02-05-2025 ambulatory MATTHIAS DIAS Facility:[facility] Start: 02-05-2025 End: 02-05-2025 Office outpatient visit 25 minutes Afia A Ceciliaan WATER MECHANIC.ROOF BOLTER OPERATOR Work Phone: [facility] [place] Comment on above: Anxiety with depress ion (Primary Dx); Obstructive sleep apnea Start: 02-02-2025 End: 02-03-2025 ambulatory Afia A Disha WATER MECHANIC.ROOF BOLTER OPERATOR Work Phone: [facility] [place] Comment on above: Increase dosage of a nti anxiety meds Start: 12-10-2024 End: 12-11-2024 ambulatory Dominga Ann APRN.ROOF BOLTER OPERATOR Work Phone: [facility] [place] Comment on above: Medication Increase Start: 12-08-2024 End: 12-08-2024 Office outpatient visit 25 minutes Dominga Ann WATER MECHANIC.ROOF BOLTER OPERATOR Work Phone: [facility] Comment on above: Herpes zoster withou t complication (Primary Dx) Start: 12-08-2024 End: 12-08-2024 ambulatory Matthias Dias MD Work Phone: [facility] [place] Comment on above: Arm Pain (left) Start: 11-23-2024 End: 11-23-2024 ambulatory AFAI A SUPPAN Facility:[facility] Start: 11-23-2024 End: 11-23-2024 Patient encounter procedure Francisco Brooks MD Work Phone: Cardiology Comment on above: Primary hypertension (Primary Dx); Valvular heart disease Start: 11-22-2024 End: 11-22-2024 ambulatory MATTHIAS DIAS Facility:[facility] Start: 11-22-2024 End: 11-22-2024 Office outpatient visit 25 minutes Raul Anne PA-C [facility] Comment on above: Acute recurrent sinu sitis, unspecified location (Primary Dx) Start: 11-16-2024 End: 11-16-2024 ambulatory Kell Still MA [facility] Start: 11-16-2024 End: 11-16-2024 Patient encounter procedure Kell Still MA [facility] Comment on above: Population Health Na vigation Outreach [facility] Start: 10-26-2024 End: 10-26-2024 Follow-up encounter Afia Schafer WATER MECHANIC.ROOF BOLTER OPERATOR Work Phone: [facility] [place] Start: 10-23-2024 End: 10-27-2024 Telephone encounter Afia Schafer WATER MECHANIC.ROOF BOLTER OPERATOR Work Phone: [facility] [place] Comment on above: Patient Question Start: 10-23-2024 End: 10-23-2024 ambulatory AFIA SCHAFER Facility:[facility] Start: 10-23-2024 End: 10-23-2024 Office outpatient visit 25 minutes Afia Schafer WATER MECHANIC.ROOF BOLTER OPERATOR Work Phone: [facility] [place] Comment on above: Pure hypercholestero lemia (Primary Dx); Non-rheumatic mitral regurgitation; Mild pulmonary hypertension (HCC); Mild persistent asthma without complication; Obstructive sleep apnea; Gastroesophageal reflux disease without esophagitis; Stage 3b chronic kidney disease (HCC); Failure of total knee replacement, sequela; Chronic bilateral low back pain without sciatica; Screening for diabetes mellitus; Vitamin D deficiency; Chronic midline low back pain with sciatica, sciatica laterality unspecified; Acute maxillary sinusitis, recurrence not specified; Valvular heart disease Start: 08-27-2024 End: 08-27-2024 ambulatory MATTHIAS DIAS Facility:[facility] Start: 08-27-2024 End: 08-27-2024 Patient encounter procedure Salma Medina PA-C Work Phone: [facility] [place] Comment on above: Spinal stenosis of l umbar region with neurogenic claudication (Primary Dx); Radiculopathy, lumbar region Start: 08-19-2024 End: 08-19-2024 Emergency department patient visit Ephraim Bell Facility:[facility] Start: 08-12-2024 End: 08-12-2024 ambulatory MATTHIAS Madelyn DIAS Facility:[facility] Start: 08-12-2024 End: 08-12-2024 Postop follow up visit related to original px Dilshad Garcia DO Work Phone: General Surgery Comment on above: Subareolar mass of l eft breast (Primary Dx); Intraductal papilloma of left breast; S/P lumpectomy, left breast Start: 08-04-2024 End: 08-04-2024 ambulatory UNKNOWN PROVIDER Facility:[facility] Start: 07-31-2024 End: 07-31-2024 ambulatory WILFRIDO APODACA Facility: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); Mixed hyperlipidemia; Mild pulmonary hypertension (HCC); Non-rheumatic mitral regurgitation; Mild persistent asthma without complication; Obstructive sleep apnea; SOB (shortness of breath); BPPV (benign paroxysmal positional vertigo), unspecified laterality; Gastroesophageal reflux disease with esophagitis without hemorrhage; Anxiety and depression; S/P total knee arthroplasty, left; Chronic bilateral low back pain, unspecified whether sciatica present; Stage 3b chronic kidney disease (HCC) Start: 07-31-2024 End: 07-31-2024 Preprocedural examination done [facility] Work Phone: [facility] Work Phone: Start: 07-31-2024 End: 07-31-2024 ambulatory MATTHIAS DIAS Facility:[facility] Start: 07-31-2024 Encounter for other preprocedural examination MATTHIAS DIAS [facility] Start: 07-30-2024 End: 07-30-2024 ambulatory UNKNOWN PROVIDER Facility:[facility] Start: 07-29-2024 End: 09-18-2024 Telephone encounter Dilshad Garcia DO Work Phone: General Surgery Comment on above: 08-04-2024 Lumpectom y [place] Start: 07-29-2024 End: 07-29-2024 ambulatory MATTHIAS DIAS Facility:[facility] Start: 07-29-2024 End: 07-29-2024 Office outpatient visit 15 minutes Dilshad Garcia DO Work Phone: General Surgery Comment on above: Subareolar mass of l eft breast (Primary Dx); Intraductal papilloma of left breast Start: 07-14-2024 End: 07-15-2024 ambulatory Salma Medina PA-C Work Phone: Spine [place] Comment on above: Inserts for shoes Start: 07-13-2024 End: 07-13-2024 Telephone encounter Yash Walton MD Work Phone: Pain Management Comment on above: Schedule Injection ( Salma Medina PA-C Referral) Lumbar radiculopathy (Primary Dx) Start: 07-10-2024 End: 07-10-2024 ambulatory Yash Walton MD Work Phone: Pain Management Comment on above: PATIENT PROCEDURE IN STRUCTIONS FOR 07/30/24 Mammogram Abnormalit y Start: 07-10-2024 End: 07-10-2024 E-mail encounter from caregiver Yash Walton MD Work Phone: Pain Management Start: 07-10-2024 End: 07-10-2024 Patient encounter procedure Steve Steiner MD Work Phone: Mammography Start: 07-10-2024 End: 07-10-2024 Telephone encounter Yash Walton MD Work Phone: Pain Management Comment on above: Injection Referral ( DW Referral/) Start: 07-09-2024 End: 07-09-2024 ambulatory RAUL BELLAMY Facility:[facility] Start: 07-09-2024 End: 07-09-2024 Patient encounter procedure Salma Medina PA-C Work Phone: Sp[facility] [place] Comment on above: Spinal stenosis of l umbar region with neurogenic claudication (Primary Dx); Radiculopathy, lumbar region Start: 07-07-2024 End: 07-07-2024 ambulatory Steve Freedman RN Work Phone: Analyzer Sales Management Comment on above: community monitoring outreach (CDM telephonic) Start: 07-07-2024 End: 07-07-2024 Subsequent hospital visit by physician Stereo/Ultrasound Bi[facility] Comment on above: Subareolar mass of l eft breast [N63.42] Start: 06-30-2024 End: 06-30-2024 Subsequent hospital visit by physician [facility] Work Phone: Radiology Comment on above: Spinal stenosis of l umbar region with neurogenic claudication [M48.062] Start: 06-24-2024 End: 06-24-2024 Office consultation new/estab patient 40 min Dilshad Garcia DO Work Phone: General Surgery Comment on above: Subareolar mass of l eft breast (Primary Dx) Start: 06-23-2024 End: 06-23-2024 ambulatory Steve Freedman RN Work Phone: Analyzer Sales Management Comment on above: community monitoring outreach (CDM telephonic) Start: 06-17-2024 End: 06-17-2024 Subsequent hospital visit by physician [facility] Work Phone: Radiology Comment on above: Encounter for screen ing mammogram for malignant neoplasm of breast [Z12.31] Start: 05-29-2024 End: 05-29-2024 Patient encounter procedure Salma Medina PA-C Work Phone: [facility] [place] Comment on above: Spinal stenosis of l umbar region with neurogenic claudication (Primary Dx); Radiculopathy, lumbar region Start: 05-26-2024 End: 05-26-2024 ambulatory Steve Freedman RN Work Phone: Analyzer Sales Management Comment on above: community monitoring outreach (CDM telephonic) Start: 05-08-2024 End: 05-20-2024 Telephone encounter Layla Bellamy PA-C Work Phone: [place] Comment on above: Orders Start: 04-28-2024 End: 04-28-2024 ambulatory Steve Freedman RN Work Phone: Analyzer Sales Management Comment on above: community monitoring outreach (CDM telephonic) Start: 04-23-2024 End: 04-23-2024 Office outpatient visit 25 minutes Afia Schafer APRN.ROOF BOLTER OPERATOR Work Phone: [facility] Comment on above: Chronic pain of righ t upper extremity (Primary Dx); Other hyperlipidemia; Mild persistent asthma without complication; Chronic pain of left knee; Mild pulmonary hypertension (HCC); Obstructive sleep apnea; Seasonal allergic rhinitis, unspecified trigger; Gastroesophageal reflux disease without esophagitis; Primary hypertension; Mixed hyperlipidemia; Gastroenteritis; Nausea; Anxiety with depression Start: 04-04-2024 Telephone encounter Afia Schafer APRN.ROOF BOLTER OPERATOR Work Phone: [facility] Comment on above: Results Start: 03-31-2024 ambulatory Steve Dejesus Work Phone: Analyzer Sales Management Comment on above: community monitoring outreach (CDM telephonic) Start: 03-18-2024 Refill Layla walker PA-C Work Phone: [facility] Comment on above: Refill Request Start: 03-17-2024 End: 03-17-2024 Subsequent hospital visit by physician Xr [facility] [place] Work Phone: Radiology Comment on above: Coccyx pain [M53.3] Start: 03-17-2024 End: 03-17-2024 Office outpatient visit 15 minutes Dominga Ann WATER MECHANIC.ROOF BOLTER OPERATOR Work Phone: [facility] [place] Comment on above: Coccyx pain (Primary Dx) Start: 03-09-2024 Telephone encounter M Esau Bellamy PA-C Work Phone: [facility] Comment on above: Patient Update Start: 03-09-2024 End: 03-09-2024 Patient encounter procedure Nataliya Bg WATER MECHANIC.ROOF BOLTER OPERATOR Work Phone: [facility] [place] Comment on above: Bacterial sinusitis (Primary Dx); Bilateral impacted cerumen Start: 03-03-2024 ambulatory Steve Freedman R N Work Phone: [employer]zer Sales Management Comment on above: community monitoring outreach (CDM telephonic) Start: 02-18-2024 End: 02-18-2024 Patient encounter procedure Felecia Calderon MD Work Phone: Orthopaedics Comment on above: Infection of prosthe tic joint, initial encounter (HCC) (Primary Dx) Start: 02-04-2024 ambulatory Steve Freedman R N Work Phone: [employer]zer Sales Management Comment on above: community monitoring outreach (CDM telephonic) Refill Request Start: 01-07-2024 ambulatory Steve Freedman R N Work Phone: Analyzer Sales Management Comment on above: communtiy monitoring outreach (CDM telephonic) Start: 01-02-2024 End: 01-02-2024 Patient encounter procedure Salma Medina PA-C Work Phone: Sp[facility] [place] Comment on above: Radiculopathy, lumba r region Start: 01-01-2024 E-mail encounter fro m caregiver Beck Alejandra DO Work Phone: Cardiology Start: 01-01-2024 Patient encounter procedure Christy Alejandra DO Work Phone: Cardiology Comment on above: Appointment Start: 12-15-2023 Refill Agueda Caba WATER MECHANIC.ROOF BOLTER OPERATOR Work Phone: Cardiology Comment on above: Refill Request Start: 12-10-2023 ambulatory Steve Freedman R N Work Phone: Analyzer Sales Management Comment on above: community monitoring outreach (CDM telephonic) Start: 12-10-2023 End: 12-10-2023 Patient encounter procedure Cast Tech Crowe Work Phone: Orthopaedics Comment on above: Chronic pain of left knee (Primary Dx) Infection of prosthe tic joint, initial encounter ([facility]) (Primary Dx); Radiculopathy, lumbar region Start: 12-10-2023 End: 12-10-2023 Subsequent hospital visit by physician Radio [facility] Amrita Potts Work Phone: Radiology Comment on above: Left knee pain, unsp ecified chronicity [M25.562] Start: 11-14-2023 Telephone encounter M Esau Bellamy PA-C Work Phone: [facility] [place] Start: 11-12-2023 ambulatory Steve Freedman R N Work Phone: Analyzer Sales Management Comment on above: community monitoring outreach (CDM telephonic) Start: 11-07-2023 End: 11-07-2023 Subsequent hospital visit by physician Bone Density [facility] Work Phone: Radiology Comment on above: Postmenopausal statu s [Z78.0] Start: 10-22-2023 Telephone encounter Layla Esau Bellamy PA-C Work Phone: Internal Medicine [place] Comment on above: Orders Start: 10-11-2023 ambulatory Steve Freedman R N Work Phone: Analyzer Sales Management Comment on above: community monitoring outreach (CDM telephonic) Start: 08-23-2023 End: 08-23-2023 Subsequent hospital visit by physician Xr [facility] Work Phone: Radiology Comment on above: Acute cough [R05.1] Start: 07-25-2023 End: 07-25-2023 Patient encounter procedure Beck Alejandra DO Work Phone: Cardiology Comment on above: Chronic diastolic co ngestive heart failure (HCC) (Primary Dx) Start: 07-01-2023 End: 07-01-2023 Patient encounter procedure Virginia Grimes WATER MECHANIC.ROOF BOLTER OPERATOR Work Phone: [facility] Comment on above: Acute otitis media, right (Primary Dx); Rhinosinusitis Start: 06-08-2023 Refill Agueda Madelyn Tho mpson WATER MECHANIC.ROOF BOLTER OPERATOR Work Phone: Cardiology Comment on above: Refill Request Start: 06-08-2023 Refill Agueda J Tho mpson WATER MECHANIC.ROOF BOLTER OPERATOR Work Phone: Cardiology Comment on above: Refill Request Start: 05-31-2023 ambulatory Steve Dejesus Work Phone: Analyzer Sales Management Comment on above: community monitoring outreach (CDM telephonic) Start: 05-02-2023 ambulatory Steve Dejesus Work Phone: Analyzer Sales Management Comment on above: community monitoring outreach (CDM telephonic) Start: 04-17-2023 End: 04-17-2023 Subsequent hospital visit by physician Diagnostic Mammo [facility] Comment on above: Abnormal mammogram [ R92.8] Start: 04-07-2023 Refill Layla walker PA-C Work Phone: [facility] Comment on above: Refill Request Start: 04-04-2023 End: 04-04-2023 Patient encounter procedure Layla Bellamy PA-C Work Phone: [facility] Comment on above: Adjustment reaction with anxiety and depression (Primary Dx); Depression, recurrent (HCC); Non-rheumatic mitral regurgitation; 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); Mixed hyperlipidemia; Mild pulmonary hypertension (HCC); SOB (shortness of breath); Obstructive sleep apnea; Mild persistent asthma without complication; Seasonal allergies; IPMN (intraductal papillary mucinous neoplasm); Gastroesophageal reflux disease with esophagitis without hemorrhage; Irritable bowel syndrome with diarrhea; Chronic pain of left knee; Infection of prosthetic joint, initial encounter (HCC); Failure of total knee replacement, initial encounter ([facility]) Start: 03-11-2023 ambulatory Steve Dejesus Work Phone: Analyzer Sales Management Comment on above: community monitoring outreach (CDM telephonic) Start: 02-20-2023 End: 02-20-2023 Office outpatient visit 25 minutes Dominga Ann ANNE.BE Work Phone: [facility] [place] Comment on above: Vertigo (Primary Dx) Start: 02-11-2023 ambulatory Steve Dejesus Work Phone: Analyzer Sales Management Comment on above: community monitoring outreach (CDM telephonic) Start: 01-22-2023 End: 01-22-2023 Refill Gee Cantu APRN.ROOF BOLTER OPERATOR Work Phone: [facility] Comment on above: Refill Request Non-rheumatic mitral regurgitation (Primary Dx); Primary hypertension; Mixed hyperlipidemia; RAVIN (obstructive sleep apnea); Mild pulmonary hypertension (HCC); Hyperlipidemia, mixed Start: 01-03-2023 Refill Matthias Dias MD Work Phone: [facility] Comment on above: Refill Request Start: 12-21-2022 Telephone encounter Gee rahman APRN.ROOF BOLTER OPERATOR Work Phone: Orth [facility] [place] Comment on above: Refill Request Start: 12-12-2022 End: 12-12-2022 Subsequent hospital visit by physician Mri Radio [facility] (I-Stat/1.5t) Work Phone: Radiology Comment on above: IPMN (intraductal pa pillary mucinous neoplasm) [D49.0] Start: 12-10-2022 ambulatory Steve Freedman R Oleg Work Phone: Analyzer Sales Management Comment on above: community monitoring outreach (CDM telephonic) Congestion of upper airway (Primary Dx); Cough, unspecified type; Sinus pressure Start: 12-10-2022 Telemedicine consult ation with patient Alana Gastelum WATER MECHANIC.ROOF BOLTER OPERATOR Work Phone: [facility] Start: 11-19-2022 Refill Matthias Dias MD Work Phone: [facility] [place] Comment on above: Refill Request Start: 11-12-2022 ambulatory Steve Edge N Work Phone: Analyzer Sales Management Comment on above: community monitoring outreach (CDM telephonic) Start: 11-05-2022 Refill Gee Cantu WATER MECHANIC.ROOF BOLTER OPERATOR Work Phone: [facility] [place] Comment on above: Refill Request Start: 10-12-2022 ambulatory Steve Freedman R N Work Phone: Analyzer Sales Management Comment on above: community monitoring outreach (CDM telephonic) Start: 10-03-2022 Telephone encounter Matthias Dias MD Work Phone: [facility] [place] Comment on above: Results Start: 10-03-2022 End: 10-03-2022 Subsequent hospital visit by physician Diagnostic Mammo [facility] Comment on above: Abnormal mammogram [ R92.8] Start: 09-28-2022 Telephone encounter Yash forman DO Work Phone: Hematology/Oncology Comment on above: Results (CBC and iro n) Start: 09-26-2022 Orders Only Yash Cloud Work Phone: Hematology/Oncology Comment on above: Iron deficiency anem ia, unspecified iron deficiency anemia type (Primary Dx) Start: 09-25-2022 Refill Bonita Alejandro WATER MECHANIC.ROOF BOLTER OPERATOR Work Phone: Urology Comment on above: Med Change Request Start: 09-22-2022 Refill Dominga Ann WATER MECHANIC.ROOF BOLTER OPERATOR Work Phone: [facility] [place] Comment on above: Refill Request Start: 09-17-2022 Refill Layla Virgen on PA-C Work Phone: [facility] [place] Comment on above: Refill Request Start: 09-13-2022 ambulatory Steve Freedman R N Work Phone: [employer]zer Sales Management Comment on above: community monitoring outreach (CDM telephonic) Start: 08-20-2022 Refill Dominga Ann WATER MECHANIC.ROOF BOLTER OPERATOR Work Phone: [facility] [place] Comment on above: Refill Request Start: 08-16-2022 ambulatory Steve Edge N Work Phone: Analyzer Sales Management Comment on above: community monitoring outreach (CDM telephonic) Start: 08-15-2022 ambulatory Renee Morris RN Work Phone: NURSE EXHIBIT ELECTRICIAN Comment on above: Question Start: 08-14-2022 Telephone encounter Layla Esau Bellamy PA-C Work Phone: [facility] [place] Comment on above: Orders Start: 08-12-2022 Refill Bonita Alejandro WATER MECHANIC.ROOF BOLTER OPERATOR Work Phone: Urology Comment on above: Refill Request Start: 08-10-2022 Telephone encounter Layla Esau Bellamy PA-C Work Phone: [facility] [place] Comment on above: COVID medication que stion Start: 08-08-2022 ambulatory Beverly Miles RN Work Phone: Analyzer Sales Management Comment on above: cdm (enrollment) Start: 08-07-2022 Telephone encounter Layla Esau Bellamy PA-C Work Phone: [facility] [place] Comment on above: Patient Update Start: 07-10-2022 End: 07-10-2022 Patient encounter procedure Denisa Romero WATER MECHANIC.ROOF BOLTER OPERATOR Work Phone: [facility] Comment on above: Vertigo (Primary Dx) ; Bilateral impacted cerumen Start: 07-05-2022 Refill Layla Cifuentes Param walker PA-C Work Phone: [facility] [place] Comment on above: Refill Request Start: 07-04-2022 End: 07-04-2022 Patient encounter procedure Agueda Jc WATER MECHANIC.ROOF BOLTER OPERATOR Work Phone: Cardiology Comment on above: Primary hypertension (Primary Dx); Non-rheumatic mitral regurgitation; Mixed hyperlipidemia; RAVIN (obstructive sleep apnea); Mild pulmonary hypertension (HCC) Start: 06-27-2022 Orders Only Yash Cloud Work Phone: Hematology/Oncology Comment on above: Iron deficiency anem ia due to chronic blood loss (Primary Dx); Iron malabsorption Start: 06-16-2022 End: 06-16-2022 ambulatory [facility] Nurse [place] Work Phone: [facility] Start: 05-28-2022 Refill Bonita Alejandro APRN.ROOF BOLTER OPERATOR Work Phone: Urology Comment on above: Refill Request Start: 05-03-2022 End: 05-03-2022 Patient encounter procedure Gee Alondra RODRÍGUEZ.ROOF BOLTER OPERATOR Work Phone: Orthopaedics Comment on above: Chronic pain of left knee (Primary Dx); Infection of prosthetic joint, initial encounter ([facility]) Start: 04-13-2022 Telephone encounter Layla Bellamy PA-C Work Phone: [facility] Comment on above: Orders; Results Start: 04-12-2022 End: 04-12-2022 Patient encounter procedure Layla Bellamy PA-C Work Phone: [facility] Comment on above: 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) (Primary Dx); Non-rheumatic mitral regurgitation; Mixed hyperlipidemia; Mild pulmonary hypertension (HCC); Obstructive sleep apnea; Lung nodules; Mild persistent asthma without complication; SOB (shortness of breath); Adjustment disorder with depressed mood; Failure of total knee replacement, initial encounter ([facility]); Iron deficiency anemia, unspecified iron deficiency anemia type; Iron malabsorption; Irritable bowel syndrome with diarrhea; IPMN (intraductal papillary mucinous neoplasm); Urge incontinence; Need for COVID-19 vaccine Start: 04-04-2022 Refill Layla walker PA-C Work Phone: [facility] Comment on above: Refill Request Blood work questions Start: 03-28-2022 End: 03-28-2022 ambulatory Yash Kwan DO Work Phone: Hematology/Oncology Comment on above: Iron deficiency anem ia, unspecified iron deficiency anemia type (Primary Dx) Refill Request Start: 03-28-2022 Telephone encounter Matthias Dias MD Work Phone: [facility] Comment on above: Results Start: 03-28-2022 End: 03-28-2022 Patient encounter procedure Yash Kwan DO Work Phone: [facility] Start: 03-28-2022 End: 03-28-2022 Subsequent hospital visit by physician Diagnostic Mammo [facility] Comment on above: Inconclusive mammogr am [R92.2] Start: 03-21-2022 Refill Layla Esau walker PA-C Work Phone: [facility] [place] Comment on above: Refill Request Start: 02-19-2022 Telephone encounter Layla Esau Bellamy PA-C Work Phone: [facility] Comment on above: Results; Patient Que stion Start: 02-19-2022 End: 02-19-2022 Subsequent hospital visit by physician Screen [facility] Comment on above: IPMN (intraductal pa pillary mucinous neoplasm) [D49.0] Start: 01-02-2022 Telephone encounter Dominga velasco APRN.CNP Work Phone: [facility] Comment on above: Results Start: 01-01-2022 End: 01-01-2022 Patient encounter procedure Dominga Ann APRN.ROOF BOLTER OPERATOR Work Phone: [facility] Comment on above: Gastroenteritis (Victoria ko Dx); Iron deficiency anemia due to chronic blood loss; Renal insufficiency; Screening for hyperlipidemia; Nausea Start: 01-01-2022 Telephone encounter Layla Bellamy PA-C Work Phone: [facility] Comment on above: Patient Update (Diaminesh ewing) Start: 12-27-2021 Get Medical Advice Felecia cueva MD Work Phone: Orthopaedics Comment on above: Refill on medication - IC DOXYCYCLIN_E HYCLATE Start: 12-26-2021 Telephone encounter Layla Bellamy PA-C Work Phone: [facility] Comment on above: Patient Update Start: 12-07-2021 Orders Only Gee Cantu APRN.ROOF BOLTER OPERATOR Work Phone: Orthopaedics Comment on above: 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); Stiffness of left knee bowel problems Start: 07-08-2021 Telephone encounter Yash forman DO Work Phone: Hematology/Oncology Comment on above: Results Start: 05-29-2021 Telephone encounter Layla Esau Bellamy PA-C Work Phone: [facility] Comment on above: Diarrhea Procedures Date Procedure Procedure Detail Performing Clinician Start: 02-10-2025 Digital breast tomosynthesis unilateral Dilshad Debbie Irizarrylli DO Work Phone: Start: 07-31-2024 Ecg routine ecg w/le ast 12 lds i&r only [facility] Provider Start: 07-07-2024 Diagnostic mammograp hy computer-aided detcj uni Dilshad Herrerai DO Work Phone: Start: 07-07-2024 Bx breast w/device 1 st lesion ultrasound guid Dilshad Irizarrylli DO Work Phone: Start: 06-30-2024 Mri spinal canal lum bar w/o contrast material Salma Medina PA-C Work Phone: Start: 06-17-2024 Us breast uni real t augie with image limited Matthias Dias MD Work Phone: Start: 06-17-2024 Digital breast tomosynthesis bilateral Matthias Dias MD Work Phone: Start: 03-17-2024 Radex sacrum & coccy x minimum 2 views Dominga Ann WATER MECHANIC.ROOF BOLTER OPERATOR Work Phone: Start: 12-10-2023 Radiologic examinati on knee 3 views Gee Cantu WATER MECHANIC.ROOF BOLTER OPERATOR Work Phone: Start: 08-23-2023 Radiologic exam ches t 2 views Carolyn CERVANTES Work Phone: Start: 07-25-2023 Ecg routine ecg w/le ast 12 lds i&r only [facility] Provider Start: 04-17-2023 Diagnostic mammograp hy computer-aided detcj bi Matthias Dias MD Work Phone: Start: 12-12-2022 Mri abdomen w/o & w/contrast material Layla Esau Bellamy PA-C Work Phone: Start: 10-03-2022 Diagnostic mammograp hy computer-aided detcj uni Matthias Dias MD Work Phone: Start: 06-16-2022 INFLUENZA SEASONAL QUADRIVALENT HIGH DOSE AGE 65+ Iván Evon Ibanezon DO Work Phone: Start: 04-12-2022 [employer] COVI D-19 VACCINE, AGE 12+ YR (CHILDS TOP) Layla Esau Belalmy PA-C Work Phone: Start: 04-12-2022 Adult depression scr eening assessment KEVIN Bellamy PA-C Work Phone: Start: 03-28-2022 Diagnostic mammograp hy computer-aided detcj uni Layla Esau Bellamy PA-C Work Phone: Start: 02-19-2022 Screening mammograph y bi 2-view breast inc cad M Esau Bellamy PA-C Work Phone: Start: 01-08-2022 Adult depression scr eening assessment Screen [facility] Start: 04-19-2021 Adult depression scr eening assessment Gee Cantu WATER MECHANIC.ROOF BOLTER OPERATOR Work Phone: Plan of Treatment Date Care Activity Detail Author Start: 04-22-2028 Diabetes Screening Diabetes Screening [facility] Start: 10-23-2027 Diabetes Screening Diabetes Screening [facility] Start: 07-31-2027 Diabetes Screening Diabetes Screening [facility] Start: 04-03-2027 Diabetes Screening Diabetes Screening [facility] Start: 04-22-2026 Annual PCP Team Chronic Disease Visit Annual PCP Team Chronic Disease Visit [facility] Start: 04-22-2026 Creatinine measurement Serum Creatinine [facility] Start: 04-22-2026 RSV Vaccine (1 - 1-dose 75+ series) RSV Vaccine (1 - 1-dose 75+ series) [facility] Comment on above: Postponed from 2019 (Declined at t his time) Start: 04-22-2026 Shingrix Vaccine (2 of 3) Shingrix Vaccine (2 of 3) [facility] Comment on above: Postponed from 03/13/2010 (Declined at t his time) Start: 04-22-2026 Urine microalbumin profile DTaP,Tdap,Td Vaccine (1 - Tdap) [facility] Comment on above: Postponed from 01/06/2015 (Declined at t his time) Start: 03-15-2026 DIABETES SCREEN DIABETES SCREEN [facility] Start: 03-15-2026 Diabetes Screening Diabetes Screening [facility] Start: 02-05-2026 Annual PCP Team Chronic Disease Visit Annual PCP Team Chronic Disease Visit [facility] Start: 12-08-2025 Annual PCP Team Chronic Disease Visit Annual PCP Team Chronic Disease Visit [facility] Start: 10-23-2025 Annual PCP Team Chronic Disease Visit Annual PCP Team Chronic Disease Visit [facility] Start: 10-23-2025 Complete blood count Hemoglobin/Hematocrit [facility] Start: 10-23-2025 Creatinine measurement Serum Creatinine [facility] Start: 10-22-2025 End: 10-22-2025 Patient encounter procedure 10/22/2025 9:20 AM EST Office Visit [facility] [address] [place] [address] Afia Schafer, WATER MECHANIC.ROOF BOLTER OPERATOR [address] [place], [place] [id number] Medicare Wellness [facility] [place] Comment on above: Medicare Wellness Start: 08-12-2025 BP Controlled (<130/80) BP Controlled (<130/80) [facility] Start: 07-31-2025 Complete blood count Hemoglobin/Hematocrit [facility] Start: 07-31-2025 Creatinine measurement Serum Creatinine [facility] Start: 05-29-2025 BP Controlled (<130/80) BP Controlled (<130/80) [facility] in Start: 05-11-2025 End: 06-09-2026 XR Cervical spine AP and Lateral and oblique XR CERV OTHER 4V AP/LAT/OBL Radiology Routine Cervical radiculopathy Expected: 05/11/2025, Expires: 06/09/2026 [facility] Work Phone: Comment on above: Expected: 05/11/2025, Expires: Start: 04-26-2025 Influenza vaccination [facility] Start: 04-23-2025 Annual PCP Team Chronic Disease Visit Annual PCP Team Chronic Disease Visit [facility] Start: 04-23-2025 BP Controlled (<130/80) BP Controlled (<130/80) [facility] Start: 04-22-2025 End: 07-22-2025 Comprehensive metabolic 2000 panel - Serum or Plasma [facility] Work Phone: Comment on above: Expected: 04/22/2025, Expires: Start: 04-22-2025 End: 07-22-2025 Hemoglobin A1c in Blood [facility] Comment on above: Expected: 04/22/2025, Expires: Start: 04-22-2025 End: 07-22-2025 Thyrotropin [Units/volume] in Serum or Plasma [facility] Comment on above: Expected: 04/22/2025, Expires: Start: 04-22-2025 End: 04-22-2025 Patient encounter procedure 04/22/2025 8:20 AM EDT Office Visit [facility] [address] [place], [place] [phone] Afia Schafer APRN.ROOF BOLTER OPERATOR [address] [place], [place] [phone] 6 month exam [facility] [place] Comment on above: 6 month exam Start: 03-17-2025 Annual PCP Team Chronic Disease Visit Annual PCP Team Chronic Disease Visit [facility] Start: 03-09-2025 Annual PCP Team Chronic Disease Visit Annual PCP Team Chronic Disease Visit [facility] Start: 02-22-2025 Influenza vaccination Influenza Vaccine (#1) [facility] Comment on above: Postponed from 04/26/2024 (Declined at t his time) Start: 02-10-2025 End: 09-11-2025 DBT Breast - bilateral diagnostic for implant BLADIMIR DIAG W ANURADHA BILATERAL Radiology Routine Intraductal papilloma of left breast S/P lumpectomy, left breast Expected: 02/10/2025 (Approximate), Expires: 09/11/2025 [facility] Work Phone: Comment on above: Expected: 02/10/2025 (Approximate), Expi res: 09/11/2025 Start: 02-10-2025 End: 02-10-2025 Patient encounter procedure Mammogram Comment on above: MAMMO DIAGNOSTIC W ANURADHA Comp- 6 mo f/u left lumpectomy Start: 02-05-2025 End: 02-05-2025 Patient encounter procedure 02/05/2025 12:40 PM EDT Office Visit [facility] [address] [place], [place] [address] Afia Schafer APRN.ROOF BOLTER OPERATOR [address] [place], [place] [phone] discuss increase medication (wellbutrin) [facility] Comment on above: discuss increase medication (wellbutrin) Start: 01-02-2025 DIABETES SCREEN DIABETES SCREEN [facility] Start: 11-23-2024 End: 11-23-2024 Patient encounter procedure 11/23/2024 9:00 AM EDT Office Visit Cardiology [address] [place] [address] Francisco Brooks MD [address] [facility], [address] [place] [address] Valvular heart disease [I38] Cardiology Comment on above: Valvular heart disease [I38] Start: 10-23-2024 End: 01-22-2025 25-hydroxyvitamin D3 [Mass/volume] in Serum or Plasma [facility] Comment on above: Expected: 10/23/2024, Expires: Start: 10-23-2024 End: 01-22-2025 Cobalamin (Vitamin B12) [Mass/volume] in Serum or Plasma [facility] Comment on above: Expected: 10/23/2024, Expires: Start: 10-23-2024 End: 01-22-2025 Comprehensive metabolic 2000 panel - Serum or Plasma [facility] Work Phone: Comment on above: Expected: 10/23/2024, Expires: Start: 10-23-2024 End: 01-22-2025 Hemoglobin A1c in Blood [facility] Comment on above: Expected: 10/23/2024, Expires: Start: 10-23-2024 End: 01-22-2025 LIPID PANEL, NONFASTING [facility] Comment on above: Expected: 10/23/2024, Expires: Start: 10-23-2024 End: 01-22-2025 Magnesium [Mass/volume] in Serum or Plasma [facility] Comment on above: Expected: 10/23/2024, Expires: Start: 10-23-2024 End: 10-23-2024 Patient encounter procedure 10/23/2024 9:00 AM EST Office Visit [facility] [address] [place], [place] [phone] Afia Schafer APRN.ROOF BOLTER OPERATOR [address] [place], [place] [phone] 6 month follow up [facility] Comment on above: 6 month follow up Start: 10-21-2024 Annual PCP Team Chronic Disease Visit Annual PCP Team Chronic Disease Visit [facility] Start: 09-03-2024 Annual PCP Team Chronic Disease Visit Annual PCP Team Chronic Disease Visit [facility] Start: 09-03-2024 BP Controlled (<130/80) BP Controlled (<130/80) [facility] Start: 08-27-2024 End: 08-27-2024 Patient encounter procedure 08/27/2024 12:40 PM EST Office Visit [facility] [address] [place] [phone] Salma Medina PA-C [address] [place] [phone] f/u injection (completed on 07/30/24) [facility] Comment on above: f/u injection (completed on 07/30/24) Start: 08-26-2024 Advance Directive Discussion Advance Directive Discussion [facility] Start: 08-22-2024 DIABETES SCREEN DIABETES SCREEN [facility] Start: 08-04-2024 End: 08-04-2024 Admission to same day surgery center 08/04/2024 7:30 AM EST - 08/04/2024 9:51 AM EST Surgery [facility] [address] [place] [address] Dilshad Garcia, DO [address] [place] [address] LUMPECTOMY BREAST [facility] Comment on above: LUMPECTOMY BREAST Start: 08-04-2024 End: 08-04-2024 Anesthesia consultation 08/04/2024 7:30 AM EST Anesthesia Event [facility] [address] [place] [address] Hailee Ospina MD [address] [place] [address] [facility] Start: 08-04-2024 End: 08-04-2024 Mastectomy partial LUMPECTOMY BREAST Subareolar mass of left breast Intraductal papilloma of left breast 08/04/2024 7:30 AM EST ME OR Start: 08-04-2024 Subsequent hospital visit by physician 08/04/2024 7:30 AM EST Hospital Encounter [facility] [address] [place] [address] Dilshad Garcia, DO [address] [place] [address] Subareolar mass of left breast [N63.42], Intraductal papilloma of left breast [D24.2] [facility] Comment on above: Subareolar mass of left breast [N63.42], Intraductal papilloma of left breast [D24.2] Start: 07-30-2024 End: 07-30-2024 Admission to same day surgery center 07/30/2024 1:24 PM EST - 07/30/2024 1:50 PM EST Surgery [facility] [address] [place] [address] Yash Walton MD [address] [facility] [id number] [place] [address] INJECTION(S) ANESTHETIC AGENT AND STEROID TRANSFORAMINAL EPIDURAL LUMBAR W/IMAGE GUIDANCE FLUORO OR CT [facility] Comment on above: INJECTION(S) ANESTHETIC AGENT AND STEROI D TRANSFORAMINAL EPIDURAL LUMBAR W/IMAGE GUIDANCE FLUORO OR CT Start: 07-30-2024 End: 07-30-2024 Njx anes&/strd w/img tfrml edrl lmbr/sac 1 lvl INJECTION(S) ANESTHETIC AGENT AND STEROID TRANSFORAMINAL EPIDURAL LUMBAR W/IMAGE GUIDANCE FLUORO OR CT Lumbar radiculopathy 07/30/2024 1:24 PM EST ME OR Start: 07-30-2024 Subsequent hospital visit by physician 07/30/2024 1:24 PM EST Hospital Encounter [facility] [address] [place] [address] Yash Walton MD [address] [id number] [place] [address] Lumbar radiculopathy [M54.16] [facility] Comment on above: Lumbar radiculopathy [M54.16] Start: 07-29-2024 End: 07-29-2024 Patient encounter procedure 07/29/2024 10:00 AM EST Office Visit General Surgery [address] [place] [address] Dilshad Garcia, DO [address] [place] [address] post op 07/07 General Surgery Comment on above: post op 07/07 Start: 07-27-2024 End: 07-27-2024 Patient encounter procedure 07/27/2024 10:40 AM EST Office Visit Cardiology [address] [address] Beck Alejandra, DO [address] [place] [address] 6 month follow up Cardiology Comment on above: 6 month follow up Start: 07-09-2024 End: 07-09-2024 Patient encounter procedure 07/09/2024 3:40 PM EST Office Visit [facility] [address] [address] Salma Medina PAMameC [address] [place] [address] results of MRI [facility] Comment on above: results of MRI Start: 07-07-2024 End: 07-07-2024 Patient encounter procedure 07/07/2024 9:30 AM EST Appointment [facility] [address] [place] [address] US BIOPSY BREAST LEFT [facility] Comment on above: US BIOPSY BREAST LEFT Start: 06-30-2024 End: 06-30-2024 Patient encounter procedure Radiology Comment on above: Request: XR LUMBAR MOTION 4V AP/LAT/ FLE X/EXT Request: MRI LUMBAR SPINE WO IVCON Start: 06-24-2024 End: 06-24-2024 Patient encounter procedure 06/24/2024 11:30 AM EDT Office Visit General Surgery [address] [place] [address] Dilshad Garcia C, DO [address] [place] [address] BIOPSY CONSULT - LT BREAST NIPPLE DISCHARGE General Surgery Comment on above: BIOPSY CONSULT - LT BREAST NIPPLE DISCHA RGE Start: 06-17-2024 End: 06-17-2024 Patient encounter procedure Mammogram Comment on above: Encounter for screening mammogram for ma lignant neoplasm of breast [Z12.31]; Nipple discharge [N64.52] Encounter for screen ing mammogram for malignant neoplasm of breast [Z12.31] Comp - BL, Encounter for screening mammogram for malignant neoplasm of breast [Z12.31]; Nipple discharge [N64.52] Start: 05-29-2024 End: 05-29-2024 Patient encounter procedure 05/29/2024 1:40 PM EDT Office Visit [facility] [address] [address] Salma Medina, PA-C [address] [place], [place] [phone] Radiculopathy, lumbar region follow up after PT completed at [facility] Comment on above: Radiculopathy, lumbar region follow up a fter PT completed at [facility] Start: 04-26-2024 Covid-19 Vaccine ( season) Covid-19 Vaccine () [facility] Start: 04-26-2024 Covid-19 Vaccine () Covid-19 Vaccine () [facility] Start: 04-26-2024 Influenza vaccination Influenza Vaccine (#1) [facility] Start: 04-23-2024 End: 04-23-2024 Patient encounter procedure 04/23/2024 9:00 AM EDT Office Visit [facility] [address] [place] [address] Layla Bellamy PA-C [address] [place] [address] 6 month follow up [facility] Comment on above: 6 month follow up Start: 04-04-2024 ANNUAL PCP TEAM CHRONIC DISEASE VISIT ANNUAL PCP TEAM CHRONIC DISEASE VISIT [facility] Start: 04-04-2024 BP CONTROLLED (<130/80) BP CONTROLLED (<130/80) [facility] Start: 02-21-2024 ANNUAL PCP TEAM CHRONIC DISEASE VISIT ANNUAL PCP TEAM CHRONIC DISEASE VISIT [facility] Start: 02-21-2024 BP CONTROLLED (<130/80) BP CONTROLLED (<130/80) [facility] Start: 02-19-2024 Covid-19 Vaccine ( season) Covid-19 Vaccine () [facility] Start: 02-18-2024 End: 02-18-2024 Patient encounter procedure 02/18/2024 10:00 AM EDT Office Visit Orthopaedics [address] [address] Felecia Calderon MD [address] [address] left knee follow up Orthopaedics Comment on above: left knee follow up Start: 01-02-2024 End: 01-02-2024 Patient encounter procedure 01/02/2024 10:20 AM EDT Office Visit [facility] [address] [place] [address] Salma Medina PA-C [address] [place] [address] Radiculopathy, lumbar region [facility] Comment on above: Radiculopathy, lumbar region Start: 12-10-2023 End: 03-10-2024 C reactive protein [Mass/volume] in Serum or Plasma C-REACTIVE PROTEIN Lab Routine Infection of prosthetic joint, initial encounter (HCC) Expected: 12/10/2023, Expires: 03/10/2024 [facility] Work Phone: Comment on above: Expected: 12/10/2023, Expires: 4 Start: 12-10-2023 End: 03-10-2024 Erythrocyte sedimentation rate SEDIMENTATION RATE, WESTERGREN Lab Routine Infection of prosthetic joint, initial encounter (HCC) Expected: 12/10/2023, Expires: 03/10/2024 [facility] Work Phone: Comment on above: Expected: 12/10/2023, Expires: 4 Start: 10-15-2023 ANNUAL PCP TEAM CHRONIC DISEASE VISIT ANNUAL PCP TEAM CHRONIC DISEASE VISIT [facility] Start: 08-26-2023 Advance Directive Discussion Advance Directive Discussion [facility] Start: 08-08-2023 ANNUAL PCP TEAM CHRONIC DISEASE VISIT ANNUAL PCP TEAM CHRONIC DISEASE VISIT [facility] Start: 07-10-2023 ANNUAL PCP TEAM CHRONIC DISEASE VISIT ANNUAL PCP TEAM CHRONIC DISEASE VISIT [facility] Start: 04-26-2023 Covid-19 Vaccine ( season) Covid-19 Vaccine () [facility] Start: 04-26-2023 Influenza vaccination [facility] Start: 04-12-2023 Adult depression screening assessment DEPRESSION SCREENING [facility] Start: 04-12-2023 ANNUAL PCP TEAM CHRONIC DISEASE VISIT ANNUAL PCP TEAM CHRONIC DISEASE VISIT [facility] Start: 04-02-2023 End: 11-02-2023 Diagnostic mammography computer-aided detcj bi [facility] DIAGNOST[facility] BILAT Radiology Routine Abnormal mammogram Expected: 04/02/2023, Expires: 11/02/2023 [facility] Work Phone: Comment on above: Expected: 04/02/2023, Expires: Start: 01-08-2023 Adult depression screening assessment DEPRESSION SCREENING [facility] Start: 01-08-2023 ANNUAL PCP TEAM CHRONIC DISEASE VISIT ANNUAL PCP TEAM CHRONIC DISEASE VISIT [facility] Start: 01-08-2023 SHINGRIX VACCINE (2 of 3) SHINGRIX VACCINE (2 of 3) [facility] Comment on above: Postponed from 03/13/2010 (Insurance Cov erage) Start: 01-08-2023 Urine microalbumin profile DTAP,TDAP,TD (1 - Tdap) [facility] Comment on above: Postponed from 01/06/2015 (Insurance Cov erage) Start: 01-01-2023 ANNUAL PCP TEAM CHRONIC DISEASE VISIT ANNUAL PCP TEAM CHRONIC DISEASE VISIT [facility] Start: 10-09-2022 ANNUAL PCP TEAM CHRONIC DISEASE VISIT ANNUAL PCP TEAM CHRONIC DISEASE VISIT [facility] Start: 09-28-2022 End: 11-28-2022 CBC W Auto Differential panel - Blood CBC + DIFF Lab STAT Iron deficiency anemia, unspecified iron deficiency anemia type Expected: 09/28/2022, Expires: 11/28/2022 [facility] Work Phone: Comment on above: Expected: 09/28/2022, Expires: 3 Start: 09-28-2022 End: 11-28-2022 Ferritin [Mass/volume] in Serum or Plasma FERRITIN BLD Lab Routine Iron deficiency anemia, unspecified iron deficiency anemia type Expected: 09/28/2022, Expires: 11/28/2022 [facility] Work Phone: Comment on above: Expected: 09/28/2022, Expires: 3 Start: 09-28-2022 End: 11-28-2022 Iron and Iron binding capacity panel - Serum or Plasma IRON + TIBC Lab Routine Iron deficiency anemia, unspecified iron deficiency anemia type Expected: 09/28/2022, Expires: 11/28/2022 [facility] Work Phone: Comment on above: Expected: 09/28/2022, Expires: 3 Start: 08-26-2022 ADVANCE DIRECTIVE DISCUSSION ADVANCE DIRECTIVE DISCUSSION [facility] Start: 08-26-2022 DEPRESSION ASSESSMENT DEPRESSION ASSESSMENT [facility] Start: 08-14-2022 End: 10-14-2022 Bacteria identified in Blood by Culture BLOOD CULTURE Microbiology Routine Night sweats Expected: 08/14/2022, Expires: 10/14/2022 [facility] Work Phone: Comment on above: Expected: 08/14/2022, Expires: 3 Start: 08-14-2022 End: 10-14-2022 Bacteria identified in Urine by Culture URINE CULTURE Microbiology Routine Night sweats Other general symptoms and signs Expected: 08/14/2022, Expires: 10/14/2022 [facility] Work Phone: Comment on above: Expected: 08/14/2022, Expires: 3 Start: 08-14-2022 End: 10-14-2022 BLOOD TB SCREEN BLOOD TB SCREEN Lab Routine Night sweats Expected: 08/14/2022, Expires: 10/14/2022 [facility] Work Phone: Comment on above: Expected: 08/14/2022, Expires: 3 Start: 08-14-2022 End: 10-14-2022 C reactive protein [Mass/volume] in Serum or Plasma C-REACTIVE PROTEIN (CRP) Lab Routine Night sweats Expected: 08/14/2022, Expires: 10/14/2022 [facility] Work Phone: Comment on above: Expected: 08/14/2022, Expires: 3 Start: 08-14-2022 End: 10-14-2022 CBC W Auto Differential panel - Blood CBC + DIFF Lab Routine Night sweats Expected: 08/14/2022, Expires: 10/14/2022 [facility] Work Phone: Comment on above: Expected: 08/14/2022, Expires: 3 Start: 08-14-2022 End: 10-14-2022 Erythrocyte sedimentation rate SED RATE WESTERGREN Lab Routine Night sweats Expected: 08/14/2022, Expires: 10/14/2022 [facility] Work Phone: Comment on above: Expected: 08/14/2022, Expires: 3 Start: 08-14-2022 End: 10-14-2022 HIV 1+2 Ab [Presence] in Serum or Plasma by Immunoassay HIV 1 2 COMBO(AG/AB),WITH REFLEX TO DIFFERENTIATION Lab Routine Night sweats Screening for HIV (human immunodeficiency virus) Expected: 08/14/2022, Expires: 10/14/2022 [facility] Work Phone: Comment on above: Expected: 08/14/2022, Expires: 3 Start: 08-14-2022 End: 10-14-2022 Thyrotropin [Units/volume] in Serum or Plasma TSH BLD Lab Routine Night sweats Expected: 08/14/2022, Expires: 10/14/2022 [facility] Work Phone: Comment on above: Expected: 08/14/2022, Expires: 3 Start: 08-14-2022 End: 10-14-2022 Urinalysis complete panel - Urine URINALYSIS, WITH MICROSCOPIC Lab Routine Night sweats Expected: 08/14/2022, Expires: 10/14/2022 [facility] Work Phone: Comment on above: Expected: 08/14/2022, Expires: 3 Start: 06-28-2022 End: 08-28-2022 CBC W Auto Differential panel - Blood CBC + DIFF Lab STAT Iron deficiency anemia due to chronic blood loss Iron malabsorption Expected: 06/28/2022, Expires: 08/28/2022 [facility] Work Phone: Comment on above: Expected: 06/28/2022, Expires: 3 Start: 06-28-2022 End: 08-28-2022 Ferritin [Mass/volume] in Serum or Plasma FERRITIN BLD Lab Routine Iron deficiency anemia due to chronic blood loss Iron malabsorption Expected: 06/28/2022, Expires: 08/28/2022 [facility] Work Phone: Comment on above: Expected: 06/28/2022, Expires: 3 Start: 06-28-2022 End: 08-28-2022 Iron and Iron binding capacity panel - Serum or Plasma IRON + TIBC Lab Routine Iron deficiency anemia due to chronic blood loss Iron malabsorption Expected: 06/28/2022, Expires: 08/28/2022 [facility] Work Phone: Comment on above: Expected: 06/28/2022, Expires: 3 Start: 06-07-2022 COVID-19 VACCINE (5 - Booster for Moderna series) COVID-19 VACCINE (5 - Booster for Moderna series) [facility] Start: 06-07-2022 COVID-19 VACCINE (5 - Moderna series) COVID-19 VACCINE (5 - Moderna series) [facility] Start: 04-26-2022 Influenza vaccination INFLUENZA (#1) [facility] Start: 04-23-2022 End: 06-23-2022 C reactive protein [Mass/volume] in Serum or Plasma C-REACTIVE PROTEIN (CRP) Lab Routine Infection of prosthetic joint, initial encounter (HCC) Expected: 04/23/2022, Expires: 06/23/2022 [facility] Work Phone: Comment on above: Expected: 04/23/2022, Expires: 2 Start: 04-23-2022 End: 06-23-2022 Erythrocyte sedimentation rate SED RATE WESTERGREN Lab Routine Infection of prosthetic joint, initial encounter (HCC) Expected: 04/23/2022, Expires: 06/23/2022 [facility] Work Phone: Comment on above: Expected: 04/23/2022, Expires: 2 Start: 04-19-2022 Adult depression screening assessment DEPRESSION SCREENING [facility] Start: 01-01-2022 End: 03-03-2022 C reactive protein [Mass/volume] in Serum or Plasma C-REACTIVE PROTEIN (CRP) Lab Routine Iron deficiency anemia due to chronic blood loss Gastroenteritis Expected: 01/01/2022, Expires: 03/03/2022 [facility] Work Phone: Comment on above: Expected: 01/01/2022, Expires: 2 Start: 01-01-2022 End: 03-03-2022 CBC W Auto Differential panel - Blood CBC + DIFF Lab Routine Gastroenteritis Expected: 01/01/2022, Expires: 03/03/2022 [facility] Work Phone: Comment on above: Expected: 01/01/2022, Expires: 2 Start: 01-01-2022 End: 03-03-2022 Comprehensive metabolic 2000 panel - Serum or Plasma COMP METABOLIC PANEL Lab Routine Gastroenteritis Expected: 01/01/2022, Expires: 03/03/2022 [facility] Work Phone: Comment on above: Expected: 01/01/2022, Expires: 2 Start: 01-01-2022 End: 03-03-2022 Erythrocyte sedimentation rate SED RATE WESTERGREN Lab Routine Iron deficiency anemia due to chronic blood loss Expected: 01/01/2022, Expires: 03/03/2022 [facility] Work Phone: Comment on above: Expected: 01/01/2022, Expires: 2 Start: 01-01-2022 End: 03-03-2022 FERRITIN BLD FERRITIN BLD Lab Routine Iron deficiency anemia due to chronic blood loss Expected: 01/01/2022, Expires: 03/03/2022 [facility] Work Phone: Comment on above: Expected: 01/01/2022, Expires: 2 Start: 01-01-2022 End: 03-03-2022 IRON + TIBC IRON + TIBC Lab Routine Iron deficiency anemia due to chronic blood loss Expected: 01/01/2022, Expires: 03/03/2022 [facility] Work Phone: Comment on above: Expected: 01/01/2022, Expires: 2 Start: 01-01-2022 End: 03-03-2022 LIPID PANEL, NONFASTING LIPID PANEL, NONFASTING Lab Routine Screening for hyperlipidemia Expected: 01/01/2022, Expires: 03/03/2022 [facility] Work Phone: Comment on above: Expected: 01/01/2022, Expires: 2 Start: 01-01-2022 End: 03-03-2022 Magnesium [Mass/volume] in Serum or Plasma MAGNESIUM BLD Lab Routine Gastroenteritis Expected: 01/01/2022, Expires: 03/03/2022 [facility] Work Phone: Comment on above: Expected: 01/01/2022, Expires: 2 Start: 01-01-2022 End: 03-03-2022 RETIC COUNT RETIC COUNT Lab Routine Iron deficiency anemia due to chronic blood loss Expected: 01/01/2022, Expires: 03/03/2022 [facility] Work Phone: Comment on above: Expected: 01/01/2022, Expires: 2 Start: 12-28-2021 COVID-19 VACCINE (4 - Booster for Moderna series) COVID-19 VACCINE (4 - Booster for Moderna series) [facility] Start: 08-26-2021 ADVANCE DIRECTIVE DISCUSSION ADVANCE DIRECTIVE DISCUSSION [facility] Start: 08-26-2021 DEPRESSION ASSESSMENT DEPRESSION ASSESSMENT [facility] Start: 2019 RSV Vaccine (1 - 1-dose 75+ series) RSV Vaccine (1 - 1-dose 75+ series) [facility] Start: 01-06-2015 Urine microalbumin profile [facility] Start: 03-13-2010 SHINGRIX VACCINE (2 of 3) SHINGRIX VACCINE (2 of 3) [facility] Start: 01-24-2010 Medicare Annual Wellness Visit Medicare Annual Wellness Visit [facility] Start: 01-06-2010 Urine microalbumin profile DTAP,TDAP,TD (1 - Tdap) [facility] Start: 2004 RSV Vaccine (1 - 1-dose 60+ series) RSV Vaccine (1 - 1-dose 60+ series) [facility] Start: 1962 Anxiety Screening Anxiety Screening [facility] Start: 1962 BP CONTROLLED (<130/80) BP CONTROLLED (<130/80) [facility] in Start: 1962 HEPATITIS C SCREENING HEPATITIS C SCREENING [facility] Bacteria identified in Body fluid by Culture BODY FLUID CULTURE AND GRAM STAIN Microbiology Routine Infection of prosthetic joint, initial encounter (HCC) Ordered: 12/10/2023 [facility] Work Phone: Comment on above: Ordered: 12/10/2023 End: 11-20-2024 BD DXA TRABECULAR BONE SCORE (TBS) BD DXA TRABECULAR BONE SCORE (TBS) Radiology Routine Postmenopausal status 1 Occurrences starting 10/22/2023 until 11/20/2024 [facility] Work Phone: Comment on above: 1 Occurrences starting 10/22/2023 until 11/20/2024 BD DXA TRABECULAR NORA NE SCORE (TBS) BD DXA TRABECULAR BONE SCORE (TBS) Radiology Routine Postmenopausal status 11/07/2023 9:24 AM EDT [facility] Work Phone: End: 03-21-2023 Diagnostic mammography computer-aided detcj uni [facility] DIAGNOSTIC RT Radiology Routine Inconclusive mammogram 1 Occurrences starting 02/19/2022 until 03/21/2023 [facility] Work Phone: Comment on above: 1 Occurrences starting 02/19/2022 until 03/21/2023 End: 04-27-2023 Diagnostic mammography computer-aided [facility] BLADIMIR DIAGNOSTIC RT Radiology Routine Abnormal mammogram 1 Occurrences starting 03/28/2022 until 04/27/2023 [facility] Work Phone: Comment on above: 1 Occurrences starting 03/28/2022 until 04/27/2023 End: 11-20-2024 DXA Skeletal system.axial Views for bone density DXA-AXIAL SKELETON Radiology Routine Postmenopausal status 1 Occurrences starting 10/22/2023 until 11/20/2024 [facility] Work Phone: Comment on above: 1 Occurrences starting 10/22/2023 until 11/20/2024 DXA Skeletal system. axial Views for bone density DXA-AXIAL SKELETON Radiology Routine Postmenopausal status 11/07/2023 9:25 AM EDT [facility] Work Phone: End: 07-04-2023 ECG COMPLETE ECG COMPLETE ECG Routine Primary hypertension 1 Occurrences starting 07/04/2022 until 07/04/2023 [facility] Work Phone: Comment on above: 1 Occurrences starting 07/04/2022 until 07/04/2023 ECG COMPLETE ECG COMPLETE ECG 07/25/2023 11:15 AM EST [facility] End: 07-31-2025 ECG COMPLETE ECG COMPLETE ECG Routine Pre-operative examination 1 Occurrences starting 07/31/2024 until 07/31/2025 [facility] Work Phone: Comment on above: 1 Occurrences starting 07/31/2024 until 07/31/2025 End: 01-23-2024 Echocardiography ECHO Cardiology Routine Non-rheumatic mitral regurgitation Primary hypertension Mixed hyperlipidemia RAVIN (obstructive sleep apnea) Mild pulmonary hypertension (HCC) Hyperlipidemia, mixed 1 Occurrences starting 01/22/2023 until 01/23/2024 [facility] Work Phone: Comment on above: 1 Occurrences starting 01/22/2023 until 01/23/2024 End: 01-08-2025 Guidance for injection of Knee IMAGING GUIDED ASP/INJ KNEE JT/BURSA LEFT Radiology Routine Infection of prosthetic joint, initial encounter (HCC) 1 Occurrences starting 12/10/2023 until 01/08/2025 [facility] Work Phone: Comment on above: 1 Occurrences starting 12/10/2023 until 01/08/2025 Hemoglobin.gastroint estin al.lower [Presence] in Stool by Immunoassay FECAL OCCULT BLOOD TEST Lab Routine Iron deficiency anemia, unspecified iron deficiency anemia type Ordered: 04/12/2022 [facility] Work Phone: Comment on above: Ordered: 04/12/2022 End: 06-10-2025 MG Breast - bilateral Diagnostic BLADIMIR DIAGNOSTIC BILATERAL Radiology Routine Encounter for screening mammogram for malignant neoplasm of breast Nipple discharge 1 Occurrences starting 05/11/2024 until 06/10/2025 [facility] Comment on above: 1 Occurrences starting 05/11/2024 until 06/10/2025 End: 06-07-2025 MG Breast Screening BLADIMIR SCREENING Radiology Routine Encounter for screening mammogram for malignant neoplasm of breast 1 Occurrences starting 05/08/2024 until 06/07/2025 [facility] Work Phone: Comment on above: 1 Occurrences starting 05/08/2024 until 06/07/2025 End: 06-28-2025 MR Lumbar spine WO contrast MRI LUMBAR SPINE WO IVCON Radiology Routine Spinal stenosis of lumbar region with neurogenic claudication Radiculopathy, lumbar region 1 Occurrences starting 05/29/2024 until 06/28/2025 [facility] Work Phone: Comment on above: 1 Occurrences starting 05/29/2024 until 06/28/2025 Removal impacted cer umen instrumentation unilat REMOVAL OF IMPACTED CERUMEN - INSTRUMENTATION Procedures Routine Bilateral impacted cerumen Ordered: 03/09/2024 [facility] Work Phone: Comment on above: Ordered: 03/09/2024 Removal impacted cer umen irrigation/lvg unilat AMBULATORY EAR LAVAGE/IRRIGATION Procedures Routine Bilateral impacted cerumen Ordered: 03/09/2024 [facility] Comment on above: Ordered: 03/09/2024 SPINE INTERVENTION PROCEDURE SPINE INTERVENTION PROCEDURE Procedures Routine Spinal stenosis of lumbar region with neurogenic claudication Radiculopathy, lumbar region Ordered: 07/09/2024 [facility] Work Phone: Comment on above: Ordered: 07/09/2024 End: 07-07-2024 SURGICAL PATHOLOGY [facility] Work Phone: Comment on above: ONCE for 1 Occurrences starting 07/07/20 24 until 07/07/2024, 1 completed SYNOVIAL FLUID, ROUTINE SYNOVIAL FLUID, ROUTINE Lab Routine Infection of prosthetic joint, initial encounter (HCC) Ordered: 12/10/2023 [facility] Work Phone: Comment on above: Ordered: 12/10/2023 End: 06-10-2025 US Breast - left limited US BREAST LTD LEFT Radiology Routine Encounter for screening mammogram for malignant neoplasm of breast Nipple discharge 1 Occurrences starting 05/11/2024 until 06/10/2025 [facility] Comment on above: 1 Occurrences starting 05/11/2024 until 06/10/2025 End: 06-10-2025 US Breast - right limited US BREAST LTD RIGHT Radiology Routine Encounter for screening mammogram for malignant neoplasm of breast Nipple discharge 1 Occurrences starting 05/11/2024 until 06/10/2025 [facility] Comment on above: 1 Occurrences starting 05/11/2024 until 06/10/2025 End: 03-21-2023 Us breast uni real time with image limited US BREAST LTD RT Radiology Routine Inconclusive mammogram 1 Occurrences starting 02/19/2022 until 03/21/2023 [facility] Work Phone: Comment on above: 1 Occurrences starting 02/19/2022 until 03/21/2023 End: 03-28-2022 Us breast uni real time with image limited US BREAST LTD RT Radiology Routine Inconclusive mammogram 1 Occurrences starting 03/28/2022 until 03/28/2022 [facility] Work Phone: Comment on above: 1 Occurrences starting 03/28/2022 until 03/28/2022 End: 04-27-2023 Us breast uni real time with image limited US BREAST LTD RT Radiology Routine Abnormal mammogram 1 Occurrences starting 03/28/2022 until 04/27/2023 [facility] Work Phone: Comment on above: 1 Occurrences starting 03/28/2022 until 04/27/2023 End: 07-24-2025 US Guidance for biopsy of Breast - left US BIOPSY BREAST LEFT Radiology Routine Subareolar mass of left breast 1 Occurrences starting 06/24/2024 until 07/24/2025 [facility] Work Phone: Comment on above: 1 Occurrences starting 06/24/2024 until 07/24/2025 End: 01-31-2025 XR Lumbar spine Views W flexion and W extension XR LUMBAR MOTION 4V AP/LAT/ FLEX/EXT Radiology Routine Radiculopathy, lumbar region 1 Occurrences starting 01/02/2024 until 01/31/2025 [facility] Work Phone: Comment on above: 1 Occurrences starting 01/02/2024 until 01/31/2025 End: 06-28-2025 XR Lumbar spine Views W flexion and W extension XR LUMBAR MOTION 4V AP/LAT/ FLEX/EXT Radiology Routine Spinal stenosis of lumbar region with neurogenic claudication Radiculopathy, lumbar region 1 Occurrences starting 05/29/2024 until 06/28/2025 [facility] Comment on above: 1 Occurrences starting 05/29/2024 until 06/28/2025 XR Lumbar spine View s W flexion and W extension XR LUMBAR MOTION 4V AP/LAT/ FLEX/EXT Radiology Routine Spinal stenosis of lumbar region with neurogenic claudication Radiculopathy, lumbar region 06/30/2024 1:53 PM EST [facility] Work Phone: End: 04-16-2025 XR Sacrum and Coccyx 3 Views XR SACRUM/COCCYX 3V AP/LAT Radiology Routine Coccyx pain 1 Occurrences starting 03/17/2024 until 04/16/2025 [facility] Work Phone: Comment on above: 1 Occurrences starting 03/17/2024 until 04/16/2025 XR Sacrum and Coccyx 3 Views XR SACRUM/COCCYX 3V AP/LAT Radiology Routine Coccyx pain 03/17/2024 10:26 AM EDT [facility] Immunizations Immunization Date Immunization Notes Care Provider Oleg garber 10-21-2023 COVID-19 vaccine, ag e 12+ yr, 2022- season ([place]) KEVIN Bellamy PA-C Work Phone: [facility] 10-21-2023 influenza (HD-IIV4) vaccine, age 65+ yr, high dose, quadrivalent, PF (FLUZONE HIGH-DOSE) KEVIN Bellamy PA-C Work Phone: [facility] 10-21-2023 influenza virus vaccine, unspecified formulation Steve Freedman RN Work Phone: [facility] 06-16-2022 influenza, high-dose , quadrivalent vaccine (FLUZONE HIGH DOSE QUADRIVALENT) Immunization Handy Work Phone: [facility] 06-16-2022 influenza virus vaccine, unspecified formulation Steve Freedman RN Work Phone: [facility] 04-12-2022 COVID-19 vaccine, ag e 12+ yr ([employer] [facility]) NA Josesito LOCKETT Work Phone: [facility] 06-16-2021 influenza, high-dose , quadrivalent vaccine (FLUZONE HIGH DOSE QUADRIVALENT) Gee Grater WATER MECHANIC.ROOF BOLTER OPERATOR Work Phone: [facility] 10-04-2020 COVID-19 vaccine, fu ll dose (MODERNA) Gee Grater WATER MECHANIC.ROOF BOLTER OPERATOR Work Phone: [facility] Work Phone: 09-06-2020 COVID-19 vaccine, fu ll dose (MODERNA) Gee Grater WATER MECHANIC.ROOF BOLTER OPERATOR Work Phone: [facility] Work Phone: 06-21-2020 influenza, high-dose , quadrivalent vaccine (FLUZONE HIGH DOSE QUADRIVALENT) Gee Grater WATER MECHANIC.ROOF BOLTER OPERATOR Work Phone: [facility] 05-21-2019 influenza, seasonal, injectable, preservative free Gee Grater WATER MECHANIC.ROOF BOLTER OPERATOR Work Phone: [facility] 06-13-2017 influenza, high dose seasonal, preservative-free Gee Grater WATER MECHANIC.ROOF BOLTER OPERATOR Work Phone: [facility] 09-21-2016 influenza, high dose seasonal, preservative-free Gee Grater WATER MECHANIC.ROOF BOLTER OPERATOR Work Phone: [facility] 08-15-2015 pneumococcal conjuga te vaccine, 13 valent Gee Grater WATER MECHANIC.ROOF BOLTER OPERATOR Work Phone: [facility] 07-14-2015 influenza, high dose seasonal, preservative-free Gee Grater WATER MECHANIC.ROOF BOLTER OPERATOR Work Phone: [facility] 01-05-2015 tetanus and diphther ia toxoids, adsorbed, preservative free, for adult use (2 Lf of tetanus toxoid and 2 Lf of diphtheria toxoid) Screen [facility] 08-09-2014 influenza, seasonal, injectable Gee Grater WATER MECHANIC.ROOF BOLTER OPERATOR Work Phone: [facility] 07-17-2013 influenza virus vaccine, unspecified formulation Gee Grater WATER MECHANIC.ROOF BOLTER OPERATOR Work Phone: [facility] 06-15-2013 influenza, seasonal, injectable, preservative free Gee Grater WATER MECHANIC.ROOF BOLTER OPERATOR Work Phone: [facility] 08-06-2012 influenza virus vaccine, unspecified formulation Gee Grater WATER MECHANIC.ROOF BOLTER OPERATOR Work Phone: [facility] 07-18-2010 influenza virus vaccine, unspecified formulation Gee Grater WATER MECHANIC.ROOF BOLTER OPERATOR Work Phone: [facility] 07-18-2010 pneumococcal polysaccharide vaccine, 23 valent Gee Grater WATER MECHANIC.ROOF BOLTER OPERATOR Work Phone: [facility] 01-16-2010 zoster vaccine, live Gee Grater WATER MECHANIC.ROOF BOLTER OPERATOR Work Phone: [facility] Work Phone: 01-05-2010 tetanus and diphther ia toxoids, adsorbed, preservative free, for adult use (2 Lf of tetanus toxoid and 2 Lf of diphtheria toxoid) Gee Grater WATER MECHANIC.ROOF BOLTER OPERATOR Work Phone: [facility] 06-22-2009 influenza virus vaccine, unspecified formulation Gee Grater WATER MECHANIC.ROOF BOLTER OPERATOR Work Phone: [facility] Work Phone: 08-11-2008 influenza virus vaccine, unspecified formulation Gee Grater WATER MECHANIC.ROOF BOLTER OPERATOR Work Phone: [facility] Work Phone: 06-27-2006 influenza virus vaccine, unspecified formulation Gee Grater WATER MECHANIC.ROOF BOLTER OPERATOR Work Phone: [facility] Work Phone: 06-20-2005 influenza virus vaccine, unspecified formulation Gee Grater WATER MECHANIC.ROOF BOLTER OPERATOR Work Phone: [facility] 07-26-2003 influenza virus vaccine, unspecified formulation Gee Grater WATER MECHANIC.ROOF BOLTER OPERATOR Work Phone: [facility] Work Phone: 06-26-2002 influenza virus vaccine, unspecified formulation Gee Grater WATER MECHANIC.ROOF BOLTER OPERATOR Work Phone: [facility] Work Phone: 05-26-1998 pneumococcal polysaccharide vaccine, 23 valent Gee Grater WATER MECHANIC.ROOF BOLTER OPERATOR Work Phone: [facility] Work Phone: Payers Date Payer Category Payer Self-pay 2010 Medicare MEDICARE MEDICAR E A AND B [id number] 2010-Present [phone] [address] [address] [place] [address] Medicare [id number] 2010 Medicare [id number] 2010 Medicare [id number] 2006 [facility] BLUE CARD TRADITIONAL OOS [id number] 2006 Unknown [employer]THEM BLUE CARD TRADITIONAL OOS [id number] 2006-Present [phone] [address] [place] [address] Indemnity [id number] 2006 Unknown ANTHEM BLUE CARD TRADITIONAL OOS [id number] 2006-Present [phone] [address] [place] [address] Indemnity [id number] 2006 Unknown [id number] Unknown [id number] Social History Date Type Detail Facility Start: 10-03-2017 End: 04-12-2022 Tobacco smoking status NHIS Never smoked tobacco [facility] Work Phone: Start: 11-16-2021 End: 04-22-2025 Alcohol intake Current non-drinker of alcohol (finding) [facility] Start: 07-25-2020 End: 08-22-2020 History SDOH Alcohol Frequency 2 [facility] Start: 07-25-2020 End: 01-14-2023 History SDOH Alcohol Std Drinks 1 [facility] Start: 12-24-2019 History SDOH Social Connections Phone 5 [facility] Start: 12-24-2019 End: 08-08-2022 History SDOH Social Connections Mormonism 3 [facility] Start: 06-20-2020 End: 08-08-2022 History SDOH Physical Activity DPW 0 [facility] Start: 06-20-2020 History SDOH Physica l Activity MPS 98 [facility] Start: 03-25-2020 History SDOH Financial 4 [facility] Start: 12-24-2019 Education 12 [facility] Start: 10-03-2017 End: 04-12-2022 Tobacco Comment Lived with smokers in childhood home and until 2002. [facility] Start: 1945 Sex Assigned At Not on file C [facility] Start: 09-12-2021 End: 04-12-2022 Exposure to SARS-CoV-2 (event) Not sure [facility] Start: 10-03-2017 End: 04-12-2022 Tobacco use and exposure Smokeless tobacco non-user [facility] Work Phone: Start: 08-08-2022 End: 08-12-2024 History of Social function [employer] [facility] Start: 08-08-2022 End: 08-12-2024 Alcohol Use Disorder Identification Test - Consumption [AUDIT-C] [facility] How often to you hav e a drink containing alcohol? Never [facility] Start: 03-11-[address] inks containing alcohol do you have on a typical day? Patient does not drink [facility] How hard is it for y ou to pay for the very basics like food, housing, medical care, and heating Somewhat hard [facility] (I/We) worried wheth er (my/our) food would run out before (I/we) got money to buy more. Never true [facility] Work Phone: Do you feel stress - tense, restless, nervous, or anxious, or unable to sleep at night because your mind is troubled all the time - these days [OSQ] Only a little [facility] (I/We) worried wheth er (my/our) food would run out before (I/we) got money to buy more. Sometimes true [facility] Has the [employer], [employer], or water [employer] threatened to shut off services in your home in past 12Mo No [facility] Do you belong to any clubs or organizations such as mu-ism groups, unions, fraternal or athletic groups, or school groups? Yes [facility] Are you now , , , , never or living with a partner? [facility] Do you feel stress - tense, restless, nervous, or anxious, or unable to sleep at night because your mind is troubled all the time - these days [OSQ] To some extent [facility] How often to you hav e a drink containing alcohol? Monthly or less [facility] How many standard dr inks containing alcohol do you have on a typical day? 1 or 2 [facility] Medical Equipment Procedure Code Equipment Code Equipment Origin al Text Equipment Identifier Dates Cement Simplex B one High Viscosity - [id number] Start: 12-28-2020 Cement Simplex P Tobramycin Bone Full Dose Radiopaque Preblend Sterile - [id number] Start: 08-21-2021 Cement Simplex P Tobramycin Bone Full Dose Radiopaque Preblend Sterile - [id number] Start: 08-21-2021 Cement Simplex P Tobramycin Bone Full Dose Radiopaque Preblend Sterile - [id number] Start: 08-21-2021 Cement Simplex P Tobramycin Bone Full Dose Radiopaque Preblend Sterile - [id number] Start: 08-21-2021 Insert Triathlon 4 9mm Tibial Bearing Condylar Stabilize Sterile Knee - [id number] Start: 12-28-2020 Component Triath litzy 4 Femoral Cruciate Retain Cemented Knee Left - [id number] Start: 12-28-2020 Component Triath litzy 4 Femoral Cruciate Retain Cemented Knee Left - [id number] Start: 08-21-2021 Baseplt Tib Alpl y Cs Sz 3 16mm - [id number] Start: 08-21-2021 Component Triath litzy 35mm 10mm Patellar Asymmetric Knee - [id number] Start: 12-28-2020 Baseplate Triath litzy 4 Tibial Primary Cement Knee - [id number] Start: 12-28-2020 Goals Date Patient Goal Desired Activity /State Personal health goal Comment on above: Formatting of this n ote might be different from the original. To stay out of the hospital Personal health goal Comment on above: Formatting of this n ote might be different from the original. Patient has the following High Blood Pressure/Hypertension Goals: Two PCP Visits annually, Nurse / pharmacist / DEJA visit within 4 weeks after PCP visit with uncontrolled BP (>140/90), BMP annually, and Patients specific blood pressure target:130/80 HTN Education to be reviewed with patient -- Advise / educate patient to ask for repeat BP check at any appointment if first BP is >140/90, Checking your Blood Pressure at Home, High Blood Pressure: Talking to Your Health Care Provider, and Your Sodium-Controlled Diet Patient will meet these goals by 08/25/24 (describe interventions done by PCC) Formatting of this n ote might be different from the original. Patient has the following High Blood Pressure/Hypertension Goals: Two PCP Visits annually, Nurse / pharmacist / DEJA visit within 4 weeks after PCP visit with uncontrolled BP (>140/90), BMP annually, and Patients specific blood pressure target:130/80 08/16/23 BP in card office on 07/25 was 130/62 10/11/23 pt states has not been checking BP but will get back to it, advised checking a couple times a week 1-2 hrs after taking am medzoie SOLORZANO RN HTN Education to be reviewed with patient -- Advise / educate patient to ask for repeat BP check at any appointment if first BP is >140/90, Checking your Blood Pressure at Home, High Blood Pressure: Talking to Your Health Care Provider, and Your Sodium-Controlled Diet Patient will meet these goals by 08/25/24 (describe interventions done by PCC) Formatting of this n ote might be different from the original. Patient has the following High Blood Pressure/Hypertension Goals: Two PCP Visits annually, Nurse / pharmacist / DEJA visit within 4 weeks after PCP visit with uncontrolled BP (>140/90), BMP annually, and Patients specific blood pressure target:130/80 08/16/23 BP in card office on 07/25 was 130/62 10/11/23 pt states has not been checking BP but will get back to it, advised checking a couple times a week 1-2 hrs after taking am shefali SOLORZANO RN 12/11/23 not checking, alexandriaed Evon SOLORZANO RN HTN Education to be reviewed with patient -- Advise / educate patient to ask for repeat BP check at any appointment if first BP is >140/90, Checking your Blood Pressure at Home, High Blood Pressure: Talking to Your Health Care Provider, and Your Sodium-Controlled Diet Patient will meet these goals by 08/25/24 (describe interventions done by PCC) Personal health goal Comment on above: Formatting of this n ote might be different from the original. To get relief of left knee pain to improve mobility and stability (hx of total left knee). 11/12/23 pt has appt with ortho in November 2023 Formatting of this n ote might be different from the original. To get relief of left knee pain to improve mobility and stability (hx of total left knee). 11/12/23 pt has appt with ortho in November 2023 12/11/23 pt doing PT and has spine consult Evon SOLORZANO RN Comment on above: Formatting of this n ote might be different from the original. To stay out of the hospital Functional Status Date Assessment Result Facility 08-25-2021 Are you deaf, or do you have serious difficulty hearing No 08/25/2021 6:03 PM Trini Moura RN No [facility] 08-25-2021 Are you blind, or do you have serious difficulty seeing, even when wearing glasses No 08/25/2021 6:03 PM Trini Moura, LI No [facility] 08-25-2021 Do you have serious difficulty walking or climbing stairs No 08/25/2021 6:03 PM Trini Moura, LI No [facility] 08-25-2021 Do you have difficul ty dressing or bathing No 08/25/2021 6:03 PM Trini Moura, LI No [facility] 08-25-2021 Because of a physica l, mental, or emotional condition, do you have difficulty doing errands alone such as visiting a physician's office or shopping No 08/25/2021 6:03 PM Trini Moura, LI No [facility] Mental Status Date Assessment Result Facility 08-25-2021 Because of a physica l, mental, or emotional condition, do you have serious difficulty concentrating, remembering, or making decisions No 08/25/2021 6:03 PM Trini Moura, LI No [facility] Clinical Notes 03-15-2021 to 07-02-2025 Telephone Encounter - Afia Schafer APRN.[facility] - 05/10/2025 4:12 PM EDTTelephone Encounter - Afia Schafer APRN.CNP - 05/10/2025 4:12 PM EDTPatient InstructionsPatient Instructions Note Date & Type Note Facility 07-02-2025 Note HNO ID: [id number] Author: FIDEL LAMBERT PT Service: ? Author Type: Physical Therapist Type: Progress Notes Filed: 07/02/2025 09:27 Note Text: Episode Visit Count: 5 Therapist That Will Accept/Oversee The Plan Of Care: Fidel Lambert Start of Care Date: 05/28/25 Onset Date: 07/28/25 Plan of Care Certification Date: 05/28/25 Next Certification Due Date: 07/28/25 RE[facility]ABIL[facility]ATION AND SPORTS THERAPY PHYSICAL THERAPY TREATMENT NOTE ASSESSMENT: Cheryl Marrero tolerated the session with no issues. She demonstrated difficulty with shoulder and knee soreness. The patient will continue to benefit from ongoing skilled physical therapy to progress toward set goals. PLAN FOR NEXT VISIT: Continue strength progression per tolerance SUBJECTIVE: Patient notes everything is sore today. Her overall intensity of pain is eased up some, but she notes continued soreness in the knees and L>R shoulder. Pain: Pain Pain Level: 3 Pain Location: Knee - Right Description: Aching Frequency: Continuous OBJECTIVE MEASURES WITH LEVEL OF FUNCTION: UE AROM R UE AROM: minimal limitations, only pain was with abduction, mid range L UE AROM: minimal limitations, only pain was with abduction, mid range TREATMENT: Therapeutic Exercise: 1: SciFit x5 min (Discussed current symptoms, L knee prognosis. 1:1 entire time) 2: SLR 3x10 3: SL hip abduction 3x10 4: Clamshells 3x10 5: STS 3x10 6: Scaption 3x10 1# 7: Alphabet on door 3x Skilled Intervention: Patient was educated in proper exercise technique and purpose for exercises. Skilled judgment was used in selection of appropriate interventions. Provided written instruction for home exercise program to facilitate proper performance and compliance. Correct performance of therapeutic exercises was facilitated with verbal and visual cuing. Billing Therapeutic Exercise Treatment Minutes: 40 Skilled Treatment Time Minutes (timed and untimed codes): 40 Total Session Time (minutes): 40 Session Start Time : 1430 Session Stop Time : 1510 Fidel Lambert PT [facility] 06-25-2025 Note HNO ID: [id number] Author: FIDEL LAMBERT PT Service: ? Author Type: Physical Therapist Type: Progress Notes Filed: 06/25/2025 12:50 Note Text: Episode Visit Count: 4 Therapist That Will Accept/Oversee The Plan Of Care: Fidel Lambert Start of Care Date: 05/28/25 Onset Date: 07/28/25 Plan of Care Certification Date: 05/28/25 Next Certification Due Date: 07/28/25 REHABILITATION AND SPORTS THERAPY PHYSICAL THERAPY PROGRESS REPORT PLAN OF CARE UPDATE: Assessment: Cheryl Marrero demonstrates moderate improvement in reaching behind back, reaching overhead, and use hand with arm at shoulder level. The patient has progressed toward goals. Patient continues to present with impairments in ADL's, gait, overall function, range of motion, strength, and symptom management that interfere with recreational activities, lifting, sleeping, reaching behind back, reaching overhead, use hand with arm at shoulder level, cleaning, cooking, dressing, grooming, rising from a chair, stair negotiation . Current prognosis is Good due to: current objective clinical presentation, good overall health status, positive past response to therapy, within-session changes, good support system/ coping skills . The patient will benefit from continued skilled therapy services to meet the updated goals for this plan of care as noted below. Goals for Episode of Care: established 05/28/25 [place] in home exercise program. Patient will decrease pain rating by 2 points to meet minimal clinical important difference for numeric pain rating scale. Patient will increase active ROM of B shoulders to WNL to allow pt to to improve performance of ADLs. Patient will demonstrate increase in B shoulder strength to 4+/5 during manual muscle testing in order to improve function for basic self-care tasks, home management tasks, and light functional tasks. Perform reaching and grooming with decreased report of symptoms/pain in 6-8 weeks. Perform sleeping without pain. Time Frame for Goals and Treatment : 07/28/25 Planned Interventions, Frequency, and Duration: 1x/week, 4 weeks Total Number of Visits Planned: 4 Patient to be seen for Therapeutic exercise (73819), Neuromuscular re-education (71402), Manual therapy (31189), Therapeutic activities (46691), Self-fci management (22752), Patient/Family/Caregiver Education, Body Mechanics Training, Gait Training (95024) PLAN FOR NEXT VISIT: Contnue BLE strengthening and shoulder strengthening SUBJECTIVE: Patient reports a fall onto her knees this last week. She feels like she has a hard time picking up her L foot and that it catches on things sometimes. She is wondering about a drop foot. Functional Limitations: recreational activities, lifting, sleeping, reaching behind back, reaching overhead, use hand with arm at shoulder level, cleaning, cooking, dressing, grooming, rising from a chair, stair negotiation Pain: Pain Pain Level: 4 Pain Location: Knee - Right Description: Aching Frequency: Continuous PROMIS Scales 06/09/2025 05/28/2025 05/26/2024 Higher is Better Phys Func - T Score 30 (moderate dysfunction) 35 (moderate dysfunction) Phys Func - Percentile 2 7 Self-Eff Symptom - T Score 41 (Average) Self-Eff Symptom - Percentile 18 05/28/2025 05/26/2024 01/02/2024 Lower is Better Pain Interference - T Score 66 (moderate) 67 (moderate) 66 (moderate) Pain Interference - Percentile 5 4 5 T-Score and Percentile Interpretation T-scores: mean of general population = 50. 5 points is clinically meaningfully difference Percentiles provide an indication of how the patient's score ranks in relation to the general population. Higher percentile rankings indicate better function/quality of life. 50th percentile is the average of the general population and indicates half of respondents had a worse score. OBJECTIVE MEASURES WITH LEVEL OF FUNCTION: LE Strength R LE Strength: 4+/5 L Hip Flexion (L2): 4/5 L Hip ABduction: 4/5 L Hip ADduction: 4/5 L Hip Internal Rotation: 4-/5 L Hip External Rotation: 4-/5 L Knee Extension (L3): 3+/5 (pain) L Knee Flexion: 4/5 L Ankle Dorsiflexion (L4): 4+/5 L Ankle Plantar Flexion: 4+/5 TREATMENT: Therapeutic Exercise: 1: SciFit x5 min (1:1 entire time. Discussed new order for patients knees and screened for a recent fall this morning) 2: Objective measures obtained 3: *SLR 3x10/side 4: *SL hip abduction 3x10/side 5: *Clamshells 3x10/side 6: *STS 3x10 7: *Alphabet on door 1x/side Skilled Intervention: Patient was educated in proper exercise technique and purpose for exercises. Skilled judgment was used in selection of appropriate interventions. Provided written instruction for home exercise program to facilitate proper performance and compliance. Correct performance of therapeutic exercises was facilitated with verbal, visual, and tactile cuing. Billing Therapeutic Exercise Treatment Minutes: 40 (more content not included)... [facility] 06-17-2025 Note HNO ID: [id number] Author: FIDEL LAMBERT PT Service: ? Author Type: Physical Therapist Type: Progress Notes Filed: 06/17/2025 14:54 Note Text: Episode Visit Count: 3 Therapist That Will Accept/Oversee The Plan Of Care: Fidel Lambert Start of Care Date: 05/28/25 Onset Date: 07/28/25 Plan of Care Certification Date: 05/28/25 Next Certification Due Date: 07/28/25 REHABILITATION AND SPORTS THERAPY PHYSICAL THERAPY TREATMENT NOTE ASSESSMENT: Cheryl Marrero tolerated the session with decreased symptoms. She demonstrated difficulty with morning shoulder pain. The patient will continue to benefit from ongoing skilled physical therapy to progress toward set goals. PLAN FOR NEXT VISIT: Continue exercise progression per tolerance SUBJECTIVE: Patient drove to [facility] and her R hand was numb for about a day after. Resolved now. Patient stiff, sore in the morning today but resolved now Pain: Pain Pain Level: 2 Pain Location: Arm - Left, Arm - Right Description: Sore, Aching Frequency: Intermittent OBJECTIVE MEASURES WITH LEVEL OF FUNCTION: TREATMENT: Therapeutic Exercise: 1: Shoulder pulleys 3x10 2: PiTB W's 3x10 3: Wall slides 3x10/side 4: PiTB W's 3x10 5: Attempted full can with PiTB but this icnreased symptoms and ceased 6: *Scap retractions 3x10 7: *Seated shoulder pendulums 3x10/side 8: *Shoulder rolls 3x10 forward and back Skilled Intervention: Patient was educated in proper exercise technique and purpose for exercises. Skilled judgment was used in selection of appropriate interventions. Provided written instruction for home exercise program to facilitate proper performance and compliance. Correct performance of therapeutic exercises was facilitated with verbal, visual, and tactile cuing. Billing Therapeutic Exercise Treatment Minutes: 30 Skilled Treatment Time Minutes (timed and untimed codes): 30 Total Session Time (minutes): 30 Session Start Time : 1432 Session Stop Time : 1502 Fidel Lambert PT [facility] 06-09-2025 Note HNO ID: [id number] Author: FIDEL LAMBERT PT Service: ? Author Type: Physical Therapist Type: Progress Notes Filed: 06/09/2025 11:15 Note Text: Episode Visit Count: 2 Therapist That Will Accept/Oversee The Plan Of Care: Fidel Lmabert Start of Care Date: 05/28/25 Onset Date: 07/28/25 Plan of Care Certification Date: 05/28/25 Next Certification Due Date: 07/28/25 REHABILITATION AND SPORTS THERAPY PHYSICAL THERAPY TREATMENT NOTE ASSESSMENT: Cheryl Marrero tolerated the session with decreased symptoms and no issues. She demonstrated improvements in tolerance for strengthening exercises and less shoulder pain. The patient will continue to benefit from ongoing skilled physical therapy to progress toward set goals. PLAN FOR NEXT VISIT: Progress strengthening to tolerance. Continue to assess for R hand numbness. May need ulnar glides or assess cervical SUBJECTIVE: Patient notes not much change in symptoms, but she is having less night pain with some of the sleeping changes she made Pain: Pain Pain Level: 4 Pain Location: Arm - Left, Arm - Right Description: Sore, Aching Frequency: Intermittent OBJECTIVE MEASURES WITH LEVEL OF FUNCTION: Form observed throughout session TREATMENT: Therapeutic Exercise: 1: Shoulder pulleys 3x10 2: Shoulder flexion iso 3x10, 1-2 sec holds 3: Shoulder ER iso 3x10, 1-2 sec holds 4: *Wall slides 3x10/side 5: *PiTB W's 3x10 Skilled Intervention: Patient was educated in proper exercise technique and purpose for exercises. Skilled judgment was used in selection of appropriate interventions. Provided written instruction for home exercise program to facilitate proper performance and compliance. Correct performance of therapeutic exercises was facilitated with verbal, visual, and tactile cuing. Billing Therapeutic Exercise Treatment Minutes: 28 Skilled Treatment Time Minutes (timed and untimed codes): 28 Total Session Time (minutes): 28 Session Start Time : 1032 Session Stop Time : 1100 Fidel Lambert PT [facility] 05-28-2025 Note HNO ID: [id number] Author: FIDEL LAMBERT PT Service: ? Author Type: Physical Therapist Type: Progress Notes Filed: 05/28/2025 14:29 Note Text: Episode Visit Count: 1 Therapist That Will Accept/Oversee The Plan Of Care: Fidel Lambert Start of Care Date: 05/28/25 Onset Date: 07/28/25 Plan of Care Certification Date: 05/28/25 Next Certification Due Date: 07/28/25 Patient Identified by Name and Date of : Yes REHABILITATION AND SPORTS THERAPY PHYSICAL THERAPY EVALUATION PLAN OF CARE: Assessment: Cheryl Marrero presents with chief complaint of B shoulder pain that interferes with recreational activities, lifting, sleeping, reaching behind back, reaching overhead, use hand with arm at shoulder level, cleaning, cooking, dressing, grooming . The patient presents with impairments in ADL's, overall function, range of motion, strength, symptom management, and tissue tenderness. PROMIS? (Patient-Reported Outcomes Measurement Information System) scores were reviewed and identified as a rehabilitation concern. Prognosis for therapy is Good due to: current objective clinical presentation, good overall health status, acuteness of condition, positive past response to therapy, good support system/ coping skills . The patient will benefit from skilled therapy services to meet the goals established for this plan of care as noted below. Goals for Episode of Care: established 05/28/25 [place] in home exercise program. Patient will decrease pain rating by 2 points to meet minimal clinical important difference for numeric pain rating scale. Patient will increase active ROM of B shoulders to WNL to allow pt to to improve performance of ADLs. Patient will demonstrate increase in B shoulder strength to 4+/5 during manual muscle testing in order to improve function for basic self-care tasks, home management tasks, and light functional tasks. Perform reaching and grooming with decreased report of symptoms/pain in 6-8 weeks. Perform sleeping without pain. Time Frame for Goals and Treatment : 07/28/25 Planned Interventions, Frequency, and Duration: Current Frequency: 1x/week Duration: 8 weeks Total Number of Visits Planned: 8 Planned Treatment Interventions: Therapeutic exercise (36402), Neuromuscular re-education (33963), Manual therapy (53132), Therapeutic activities (62883), Self-fci management (88131), Patient/Family/Caregiver Education, Body Mechanics Training PLAN FOR NEXT VISIT: Progress shoulder strengthening if tolerated, may add pendulums if needed for pain control Patient demonstrates good understanding of plan of care and treatment. The above goals and plan of care were discussed and agreed upon by patient/family. SUBJECTIVE: B shoulder pain with L hurt more frequently than R. Reaching out and up hurts the most. During the day it isn't bad, she feels better when she is up and moving. Patient's worst pain is when she sleeps. Sleeps on left side due to some knee issues. Issues with grooming her hair, dressing, cooking, cleaning. Not just the shoulders, but they are limiting her now as well as her back and L knee. Feels numbness into the R hand, entire hand, and some days it swells and decreases her function. Functional Limitations: recreational activities, lifting, sleeping, reaching behind back, reaching overhead, use hand with arm at shoulder level, cleaning, cooking, dressing, grooming Prior Level of Function: Independent without limitations Intake Information: Prescription present Pain: Pain Pain Level: 8 Pain Location: Arm - Left, Arm - Right Description: Sharp Frequency: Intermittent PROMIS Scales 05/28/2025 05/26/2024 02/15/2024 Higher is Better Phys Func - T Score 35 (moderate dysfunction) 29 (severe dysfunction) Phys Func - Percentile 7 2 Self-Eff Symptom - T Score 41 (Average) Self-Eff Symptom - Percentile 18 05/28/2025 05/26/2024 01/02/2024 Lower is Better Pain Interference - T Score 66 (moderate) 67 (moderate) 66 (moderate) Pain Interference - Percentile 5 4 5 T-Score and Percentile Interpretation T-scores: mean of general population = 50. 5 points is clinically meaningfully difference Percentiles provide an indication of how the patient's score ranks in relation to the general population. Higher percentile rankings indicate better function/quality of life. 50th percentile is the average of the general population and indicates half of respondents had a worse score. OBJECTIVE MEASURES WITH LEVEL OF FUNCTION: Shoulder Observations R Shoulder Palpation Tenderness: Supraspinatus, Infraspinatus L Shoulder Palpation Tenderness: Supraspinatus, Infraspinatus Cervical Spine ROM Cervical ROM : Limitation AROM Cervical Flexion AROM: Normal Cervical Extension AROM: Major limitation Cervical Side-Bend Right AROM: Moderate limitation Cervical Side-Bend Left AROM: Moderate limitation Cervical Rotation Right AROM: Minimal limita (more content not included)... [facility] 05-28-2025 Note HNO ID: [id number] Author: FIDEL LAMBERT PT Service: ? Author Type: Physical Therapist Type: Progress Notes Filed: 05/28/2025 14:17 Note Text: Program_ID:[id number] Access Code: [email or web address] URL: [email or web address] Date: 05-28-2025 Prepared By: Fidel Lambert Program Notes Exercises - Seated Shoulder Flexion AAROM with Glendy Behind - 3 x daily - 7 x weekly - 1 sets - 10 reps - Isometric Shoulder Flexion - 3 x daily - 7 x weekly - 1 sets - 10 reps - 1-2 seconds hold - Isometric Shoulder External Rotation - 3 x daily - 7 x weekly - 1 sets - 10 reps - 1-2 seconds hold [facility] 05-28-2025 Note HNO ID: [id number] Author: YOCASTA MARCUS RT(R) Service: ? Author Type: Technologist Type: Progress Notes Filed: 05/28/2025 14:10 Note Text: Radiology Service Progress Note PATIENT NAME: Cheryl Marrero DATE OF SERVICE: May 28, 2025 TIME: 2:10 PM PATIENT IDENTITY VERIFICATION COMPLETED USING TWO (2) IDENTIFIERS: Name and Date of confirmed by patient verbally. FALL SCREENING: Has the patient had 2 falls in the last year or 1 fall with injury or currently using an Ambulatory Assistive Device (Walker, Cane, Wheelchair, Crutches, etc.)? No PATIENT GENDER DATA: Assigned female at . status: : No status: NO. PATIENT RELEVANT IMPLANT DATA REVIEWED: Not Applicable PATIENT PRESENTS WITH AN IMPLANTABLE OR ATTACHED CUPOLA TAPPER: No RADIOLOGY DEPARTMENT: Mammography PERIPHERAL IV DATA: Not applicable SIGNED BY: Yocasta Marcus RT(R) May 28, 2025 2:10 PM [facility] 05-13-2025 Note HNO ID: [id number] Author: PEEWEE HENDERSON RT(R) Service: ? Author Type: Manager Drive Type: Progress Notes Filed: 05/13/2025 15:12 Note Text: Radiology Service Progress Note PATIENT NAME: Cheryl Marrero DATE OF SERVICE: May 13, 2025 TIME: 3:01 PM PATIENT IDENTITY VERIFICATION COMPLETED USING TWO (2) IDENTIFIERS: Name and Date of confirmed by patient verbally. FALL SCREENING: Has the patient had 2 falls in the last year or 1 fall with injury or currently using an Ambulatory Assistive Device (Walker, Cane, Wheelchair, Crutches, etc.)? No PATIENT GENDER DATA: Assigned female at . status: : No status: NO. PATIENT RELEVANT IMPLANT DATA REVIEWED: Yes PATIENT PRESENTS WITH AN IMPLANTABLE OR ATTACHED CUPOLA TAPPER: No RADIOLOGY DEPARTMENT: General X-ray: Exam(s) Completed: Spine X-Ray(s): Cervical AP / LAT / OBL PERIPHERAL IV DATA: Not applicable SIGNED BY: Peewee Henderson, RT(R) May 13, 2025 3:01 PM [facility] 05-10-2025 Telephone encounter Note Restart the rosuvastatin, it is not that. Please come in and get Xrays of your neck at your earliest convenience. [facility] 05-10-2025 Miscellaneous Notes Restart the rosuvastatin, it is not that. Please come in and get Xrays of your neck at your earliest convenience. See update from pt regarding d/c statin medication. Ct Werner MA documented in this encounter [facility] 05-10-2025 Telephone encounter Note See update from pt regarding d/c statin medication. Ct Werner MA [facility] 04-23-2025 Telephone encounter Note Patient read mychart result message [facility] 04-23-2025 Telephone encounter Note ----- Message from Afia Schafer sent at 04/23/2025 8:04 AM EDT ----- Blood sugars remain controlled and stable. Kidney function remains slightly weak but also stable. Stable means no exchange teller time. Thyroid screening is normal. ----- Message ----- From: Lab, Background User Sent: 04/22/2025 7:38 PM EDT To: Afia Schafer APRN.ROOF BOLTER OPERATOR [facility] 04-23-2025 Miscellaneous Notes Patient read mychart result message ----- Message from Afia Schafer sent at 04/23/2025 8:04 AM EDT ----- Blood sugars remain controlled and stable. Kidney function remains slightly weak but also stable. Stable means no exchange teller time. Thyroid screening is normal. ----- Message ----- From: Lab, Background User Sent: 04/22/2025 7:38 PM EDT To: Afia Schafer APRN.ROOF BOLTER OPERATOR Blood sugars remain controlled and stable. Kidney function remains slightly weak but also stable. Stable means no exchange teller time. Thyroid screening is normal. documented in this encounter [facility] 04-23-2025 Progress note Formatting of t his note might be different from the original. Blood sugars remain controlled and stable. Kidney function remains slightly weak but also stable. Stable means no exchange teller time. Thyroid screening is normal. [facility] 04-22-2025 Note Addended by: AFIA SCHAFER on: 04/22/2025 08:50 AM Modules accepted: Orders [facility] 04-22-2025 Miscellaneous Notes Addended by: AFIA SCHAFER on: 04/22/2025 08:50 AM Modules accepted: Orders documented in this encounter [facility] 04-22-2025 Instructions Afia Schafer APRN.ROOF BOLTER OPERATOR - 04/22/2025 8:47 AM EDT - Hold your cholesterol medicine (Crestor) for two weeks. - After two weeks, send me a message to let me know if your arm pain has completely gone away; if it has, we ll know it was from the statin, and if not, we ll look into other causes. - You can get the RSV vaccine at your pharmacy when you re ready. - You may also receive the two-dose shingles vaccine series through your pharmacy benefit (second dose 2-6 months after the first); it s about 97.5% effective. - Check labs today documented in this encounter [facility] 04-22-2025 Note HNO ID: [id number] Author: AFIA SCHAFER APRN.BE Service: ? Author Type: Nurse Practitioner Type: Progress Notes Filed: 04/22/2025 08:48 Note Text: This is a 79 year old female who presents today with: Patient presents with: 6 Month Exam HISTORY OF PRESENT ILLNESS: Cheryl Marrero is a 79 year old female. Patient presents with: 6 Month Exam The patient is an 79-year-old female with hyperlipidemia, presenting for evaluation of six weeks of arm and wrist pain. Right Arm Pain: - Aching pain in the right arm, x6 weeks. - Pain is severe enough to limit movement, including difficulty pulling a blanket off. - Cheryl denies known trauma or injury. - Sleeps on shoulders; initially thought pain was due to sleeping position. - Occasionally experiences pain in the wrist, especially with pushing movements. - Cheryl is concerned about potential muscle loss. Hyperlipidemia: - Currently taking Crestor. Anxiety: - Recent increase in anxiety medication dosage. GERD: - Managed with Prevacid. Headaches: - Experiences pressure headaches and migraines, sometimes lasting 2-4 days. - Headaches are frontal in location. - No headaches this week. Menopausal Symptoms: - Continues to experience hot flashes. Shingles: - History of shingles earlier this year. Vertigo: - Cheryl had one episode of vertigo recently. PAST MEDICAL HISTORY: PAST MEDICAL HISTORY Diagnosis Date Adjustment disorder with depressed mood Anxiety state, unspecified Arthritis Asthma (HCC) Coronary artery disease Diverticulosis of colon (without mention of hemorrhage) Hemorrhage of gastrointestinal tract, unspecified Iron deficiency anemia 06/29/2021 Localized osteoarthrosis not specified whether primary or secondary, lower leg Lung nodules Myalgia Obstructive sleep apnea Other and unspecified hyperlipidemia Seasonal allergies Shingles 01/2017 Urge urinary incontinence PAST SURGICAL HISTORY Procedure Laterality Date ABDOMINAL SURGERY HX BREAST CYST PUNCTURE/BC BX OF BREAST; INCISIONAL Left 08/04/2024 CHOLECYSTECTOMY 04/09/2000 lap choley COLONOSCOPY - DIAGNOSTIC 11/01/2000 COLONOSCOPY FLX DX W/COLLJ SPEC WHEN PFRMD 09/09/2008 Colonoscopy COLONOSCOPY FLX DX W/COLLJ SPEC WHEN PFRMD 07/01/2014 Colonoscopy COLONOSCOPY FLX DX W/COLLJ SPEC WHEN PFRMD 11/05/2019 Colonoscopy COLONOSCOPY FLX DX W/COLLJ SPEC WHEN PFRMD 06/13/2021 ECHOCARDIOGRAM 04/24/2021 echo: LV small, LV SF WNL, EF 65%, grade 1 LVDD. All wall motion score normal. RV size and RV SF WNL, RVSP 38 mmHg consistent with mild pulmonary hypertension. LA and RA normal in size, inferior vena cava normal. MV: 0-1+ MVR, TV normal, 0-1+ TR, AV normal, PV not seen, 0-1+ FL. Mid a sending aorta 3.2 cm. Echocardiogram pulmonary arteries not interrogated, no pericardial effusion ESOPHAGOGASTRODUODENOSCOPY TRANSORAL DIAGNOSTIC 11/05/2019 EGD ESOPHAGOGASTRODUODENOSCOPY TRANSORAL DIAGNOSTIC 06/13/2021 EXCIS BREAST LESION Left 07/07/2024 US guided core bx Lt breast EYE SURGERY HX HEMORRHOIDECTOMY INTERNAL RUBBER BAND LIGATIONS 11/05/2019 PICC LINE INSERT/CONSULT 08/24/2021 SKIN BIOPSY HX TONSILLECTOMY HX TONSILLECTOMY PRIMARY/SECONDARY TOTAL KNEE REPLACEMENT ALLERGIES Phenergan [Promethazine Hcl], Lmirgho-Kqn-Wgx Reductase Inhibitors, Adhesive, Breo Ellipta [Fluticasone Furoate-Vilanterol], Penicillins, Roxicodone [Oxycodone], Sulfa (Sulfonamide Antibiotics), and Vancomycin MEDICATIONS Current Outpatient Medications Medication Sig buPROPion XL (WELLBUTRIN XL) 300 mg 24 hr tablet Take 1 tablet by mouth once daily. folic acid 1 mg tablet Take 1 tablet by mouth once daily. lansoprazole (PREVACID) 30 mg capsule Take 1 capsule by mouth once daily. metoprolol succinate ER (TOPROL XL) 25 mg 24 hr tablet Take 1 tablet by mouth two times a day. rosuvastatin (CRESTOR) 5 mg tablet Take 1 tablet by mouth daily at bedtime. albuterol HFA (PROAIR HFA) 90 mcg/actuation inhaler Inhale 2 Puffs as instructed every 6 hours as needed. meclizine (ANTIVERT) 25 mg tab Take 25 mg by mouth three times daily as needed. From [facility] er ascorbic acid (VITAMIN C ORAL) Take 1 tablet by mouth once daily. 1000mg polyethylene glycol 3350 (MIRALAX ORAL) Take 1 Tablespoonful by mouth as needed. acetaminophen (TYLENOL) 500 mg tablet Take 2 tablets by mouth every 8 hours as needed. fluticasone (FLONASE) 50 mcg/actuation nasal spray Use 1 [place] in each nostril once daily. vitamin B complex (B COMPLEX 1 ORAL) Take 1 tablet by mouth once daily. cholecalciferol (VITAMIN D3) 1,000 unit tab tablet Take 1,000 Units by mouth once daily. clindamycin (CLEOCIN) 300 mg capsule Take 2 capsules by mouth one hour prior to dental cleaning/procedure No current facility-administered medications for this visit. FAMILY HISTORY Problem Relation Age of Onset Ischemic Heart Disease Father PASSED FROM [place] Diabetes Fathe (more content not included)... [facility] 04-22-2025 History of Present illness Narrative This is a 79 year old female who presents today with: Patient presents with: 6 Month Exam HISTORY OF PRESENT ILLNESS: Cheryl Marrero is a 79 year old female. Patient presents with: 6 Month Exam The patient is an 79-year-old female with hyperlipidemia, presenting for evaluation of six weeks of arm and wrist pain. Right Arm Pain: - Aching pain in the right arm, x6 weeks. - Pain is severe enough to limit movement, including difficulty pulling a blanket off. - Cheryl denies known trauma or injury. - Sleeps on shoulders; initially thought pain was due to sleeping position. - Occasionally experiences pain in the wrist, especially with pushing movements. - Cheryl is concerned about potential muscle loss. Hyperlipidemia: - Currently taking Crestor. Anxiety: - Recent increase in anxiety medication dosage. GERD: - Managed with Prevacid. Headaches: - Experiences pressure headaches and migraines, sometimes lasting 2-4 days. - Headaches are frontal in location. - No headaches this week. Menopausal Symptoms: - Continues to experience hot flashes. Shingles: - History of shingles earlier this year. Vertigo: - Cheryl had one episode of vertigo recently. PAST MEDICAL HISTORY: PAST MEDICAL HISTORY Diagnosis Date Adjustment disorder with depressed mood Anxiety state, unspecified Arthritis Asthma (HCC) Coronary artery disease Diverticulosis of colon (without mention of hemorrhage) Hemorrhage of gastrointestinal tract, unspecified Iron deficiency anemia 06/29/2021 Localized osteoarthrosis not specified whether primary or secondary, lower leg Lung nodules Myalgia Obstructive sleep apnea Other and unspecified hyperlipidemia Seasonal allergies Shingles 01/2017 Urge urinary incontinence PAST SURGICAL HISTORY Procedure Laterality Date ABDOMINAL SURGERY HX BREAST CYST PUNCTURE/BC BX OF BREAST; INCISIONAL Left 08/04/2024 CHOLECYSTECTOMY 04/09/2000 lap choley COLONOSCOPY - DIAGNOSTIC 11/01/2000 COLONOSCOPY FLX DX W/COLLJ SPEC WHEN PFRMD 09/09/2008 Colonoscopy COLONOSCOPY FLX DX W/COLLJ SPEC WHEN PFRMD 07/01/2014 Colonoscopy COLONOSCOPY FLX DX W/COLLJ SPEC WHEN PFRMD 11/05/2019 Colonoscopy COLONOSCOPY FLX DX W/COLLJ SPEC WHEN PFRMD 06/13/2021 ECHOCARDIOGRAM 04/24/2021 echo: LV small, LV SF WNL, EF 65%, grade 1 LVDD. All wall motion score normal. RV size and RV SF WNL, RVSP 38 mmHg consistent with mild pulmonary hypertension. LA and RA normal in size, inferior vena cava normal. MV: 0-1+ MVR, TV normal, 0-1+ TR, AV normal, PV not seen, 0-1+ FL. Mid a sending aorta 3.2 cm. Echocardiogram pulmonary arteries not interrogated, no pericardial effusion ESOPHAGOGASTRODUODENOSCOPY TRANSORAL DIAGNOSTIC 11/05/2019 EGD ESOPHAGOGASTRODUODENOSCOPY TRANSORAL DIAGNOSTIC 06/13/2021 Dr.Guttman TAVERAS BREAST LESION Left 07/07/2024 US guided core bx Lt breast EYE SURGERY HX HEMORRHOIDECTOMY INTERNAL RUBBER BAND LIGATIONS 11/05/2019 PICC LINE INSERT/CONSULT 08/24/2021 SKIN BIOPSY HX TONSILLECTOMY HX TONSILLECTOMY PRIMARY/SECONDARY <AGE 12 TOTAL KNEE REPLACEMENT ALLERGIES Phenergan [Promethazine Hcl], Slzqjuo-Knb-Dhv Reductase Inhibitors, Adhesive, Breo Ellipta [Fluticasone Furoate-Vilanterol], Penicillins, Roxicodone [Oxycodone], Sulfa (Sulfonamide Antibiotics), and Vancomycin MEDICATIONS Current Outpatient Medications Medication Sig buPROPion XL (WELLBUTRIN XL) 300 mg 24 hr tablet Take 1 tablet by mouth once daily. folic acid 1 mg tablet Take 1 tablet by mouth once daily. lansoprazole (PREVACID) 30 mg capsule Take 1 capsule by mouth once daily. metoprolol succinate ER (TOPROL XL) 25 mg 24 hr tablet Take 1 tablet by mouth two times a day. rosuvastatin (CRESTOR) 5 mg tablet Take 1 tablet by mouth daily at bedtime. albuterol HFA (PROAIR HFA) 90 mcg/actuation inhaler Inhale 2 Puffs as instructed every 6 hours as needed. meclizine (ANTIVERT) 25 mg tab Take 25 mg by mouth three times daily as needed. From [facility] er ascorbic acid (VITAMIN C ORAL) Take 1 tablet by mouth once daily. 1000mg polyethylene glycol 3350 (MIRALAX ORAL) Take 1 Tablespoonful by mouth as needed. acetaminophen (TYLENOL) 500 mg tablet Take 2 tablets by mouth every 8 hours as needed. fluticasone (FLONASE) 50 mcg/actuation nasal spray Use 1 [place] in each nostril once daily. vitamin B complex (B COMPLEX 1 ORAL) Take 1 tablet by mouth once daily. cholecalciferol (VITAMIN D3) 1,000 unit tab tablet Take 1,000 Units by mouth once daily. clindamycin (CLEOCIN) 300 mg capsule Take 2 capsules by mouth one hour prior to dental cleaning/procedure No current facility-administered medications for this visit. FAMILY HISTORY Problem Relation Age of Onset Ischemic Heart Disease Father [place]ED [place] Diabetes Father Ischemic Heart Disease Mother P[place]ED [place] Coronary Artery Disease Brother stent Diabetes Sister Cancer Maternal Grandfather lung Cancer Paternal Grandfather lung SOCIAL HISTORY[1] REVIEW OF SYSTEMS Constitutional: (+) hot flashes, (-) weight loss, (-) weight gain, (-) fever, (-) chills Head: (+) headaches Eyes: (-) visual changes Ears/Nose/Mouth/Throat: (-) hearing changes Cardiovascular: (-) chest pain, (-) palpitations, (-) leg swelling Respiratory: (+) shortness of breath, (-) cough, (-) wheeze, (-) orthopnea Gastrointestinal: (-) nausea, (-) vomiting, (-) heartburn Musculoskeletal: (+) arm pain, (+) wrist pain, (-) joint pain, (-) joint swelling Skin: (+) pruritus, (-) skin redness, (-) skin pain Neurological: (+) vertigo Endocrine: (-) excessive thirst EXAM: BP 144/78 Pulse 76 Wt 72.6 kg (160 lb) SpO2 99% BMI 25.06 kg/m PHYSICAL EXAM: GENERAL: NAD, alert and oriented. SKIN: Unremarkable, no rash or skin lesions. HEAD: Normocephalic. EYES: PERRLA, EOMI, conjunctiva clear. EARS: External ears normal, cerumen present but not obstructing view of TM's. NOSE/SINUSES: Nares boggy and smooth. Septum midline. Mucosa smooth and pink, no infection noted, but swollen. OROPHARYNX: Lips, mucosa, and tongue normal, good dentition. No oral lesions noted. NECK: Supple, no lymphadenopathy, normal thyroid, no carotid bruits. LUNGS: Clear to auscultation bilaterally, no wheezes/rhonchi/rales. HEART: Regular rate and rhythm, no murmurs. No ectopy. EXTREMITIES: Normal, no deformities, no skin discoloration, no edema. NEURO: Awake, alert and oriented x3, cranial nerves II-XII grossly intact, normal gait, no involuntary motions. LABS: check labs ASSESSMENT/PLAN: GENERAL: NAD, alert and oriented. SKIN: Unremarkable, no rash or skin lesions. HEAD: Normocephalic. EYES: PERRLA, EOMI, conjunctiva clear. EARS: External ears normal, cerumen present but not obstructing view of TM's. NOSE/SINUSES: Nares boggy and smooth. Septum midline. Mucosa smooth and pink, no infection noted, but swollen. OROPHARYNX: Lips, mucosa, and tongue normal, good dentition. No oral lesions noted. NECK: Supple, no lymphadenopathy, normal thyroid, no carotid bruits. LUNGS: Clear to auscultation bilaterally, no wheezes/rhonchi/rales. HEART: Regular rate and rhythm, no murmurs. No ectopy. EXTREMITIES: Normal, no deformities, no skin discoloration, no edema. NEURO: Awake, alert and oriented x3, cranial nerves II-XII grossly intact, normal gait, no involuntary motions. ASSESSMENT/PLAN: 1. Myalgia - ICD9: 729.1, ICD10: M79.10 (primary diagnosis) - Hold rosuvastatin for 2 weeks - Pt. To let me know if symptoms completely resolve, may need a change in statin or zetia 2. Gastroesophageal reflux disease without esophagitis - ICD9: 530.81, ICD10: K21.9 - Stable - FOLIC ACID 1 MG TABLET - LANSOPRAZOLE 30 MG CAPSULE,DELAYED RELEASE 3. Primary hypertension - ICD9: 401.9, ICD10: I10 - Controlled - Recommend home blood pressure monitoring, to bring results to next visit - Encouraged sodium restriction, DASH or Mediterranean diet - Recommend regular aerobic exercise - METOPROLOL SUCCINATE ER 25 MG TABLET,EXTENDED RELEASE 24 HR - COMPREHENSIVE METABOLIC PANEL 4. Mixed hyperlipidemia - ICD9: 272.2, ICD10: E78.2 - Controlled - Counseled on healthy diet and regular exercise - ROSUVASTATIN 5 MG TABLET- hold for 2 weeks to see if myalgia resolves 5. Migraine without aura, not intractable, without status migrainosus - ICD9: 346.10, ICD10: G43.009 Ongoing with weather changes 6. Hot flashes - ICD9: 782.62, ICD10: R23.2 Ongoing 7. Seasonal allergic rhinitis, unspecified trigger - ICD9: 477.9, ICD10: J30.2 stable 8. Prediabetes - ICD9: 790.29, ICD10: R73.03 - Check labs - HEMOGLOBIN A1C 9. Stage 3b chronic kidney disease (HCC) - ICD9: 585.3, ICD10: N18.32 - eGFR: 48 Improving - Counseled on avoiding NSAIDs, adequate hydration 10. Bilateral impacted cerumen - ICD9: 380.4, ICD10: H61.23 -sample of ear flush kits Discussed treatment plan and patient voices understanding. Patient's questions answered appropriately. Medications and potential side effects were discussed and patient voices understanding. Return to the office as scheduled or as needed for worsening/no improvement. Afia Schafer APRN.BE [1] Social History Tobacco Use Smoking status: Never Smokeless tobacco: Never Tobacco comments: Lived with smokers in childhood home and until 2002. Vaping Use Vaping status: Never Used Substance Use Topics Alcohol use: No Drug use: No documented in this encounter [facility] 03-24-2025 Telephone encounter Note agree [facility] 03-24-2025 Miscellaneous Notes agree [facility] Provider Action/FYI: Exposed to COVID19, both individuals not wearing a mask, during 5 minute car ride to and from urgent care. No symptoms. Home care recommendation given but advised to test in 5-7 days or if symptoms arise. Hello, you've reached [facility], my name is Nikki Aponte RN, I'm a registered nurse, and we are on a recorded line. Patient identified by name and date of Spoke with patient Verify that the patient is a [facility] patient: Previous Are you having any symptoms today? Yes - Go to [facility] Protocol Symptoms present: COVID19 exposure Based on what you've told me, I do recommend that you: -Home care recommendation given. Care advice reviewed and voiced understanding. Advised to call back and update PCP when office open or send a Oja[employer]la message with update. Do you understand my recommendations? (After patient verifies understanding) If you develop any new symptoms, your condition worsens, then GO TO THE EMERGENCY ROOM OR CALL 911. If you have any questions, please call us back. Reason for Disposition [1] COVID-19 EXPOSURE within last 14 days AND [2] NO symptoms Answer Assessment - Initial Assessment Questions 1. COVID-19 EXPOSURE: took a friend to the urgent care 2. PLACE of CONTACT: drove in the car together 3. TYPE of CONTACT: drove in the car together 4. DURATION of CONTACT: about [address] 5. DATE of CONTACT: 03/24/25 6. MASK: patient was not; friend was not until after urgent care visit 7. SYMPTOMS: none 8. COVID-19 VACCINE: see historical info 9. OR : N/A 10. HIGH RISK: no weakened immune system Protocols used: COVID-19 - [id number] documented in this encounter [facility] 03-24-2025 Telephone encounter Note [facility] Provider Action/FYI: Exposed to COVID19, both individuals not wearing a mask, during 5 minute car ride to and from urgent care. No symptoms. Home care recommendation given but advised to test in 5-7 days or if symptoms arise. Hello, you've reached [facility], my name is Nikki Aponte RN, I'm a registered nurse, and we are on a recorded line. Patient identified by name and date of Spoke with patient Verify that the patient is a [facility] patient: Previous Are you having any symptoms today? Yes - Go to [facility] Protocol Symptoms present: COVID19 exposure Based on what you've told me, I do recommend that you: -Home care recommendation given. Care advice reviewed and voiced understanding. Advised to call back and update PCP when office open or send a [employer]ja[employer] message with update. Do you understand my recommendations? (After patient verifies understanding) If you develop any new symptoms, your condition worsens, then GO TO THE EMERGENCY ROOM OR CALL 911. If you have any questions, please call us back. Reason for Disposition [1] COVID-19 EXPOSURE within last 14 days AND [2] NO symptoms Answer Assessment - Initial Assessment Questions 1. COVID-19 EXPOSURE: took a friend to the urgent care 2. PLACE of CONTACT: drove in the car together 3. TYPE of CONTACT: drove in the car together 4. DURATION of CONTACT: about [address] 5. DATE of CONTACT: 03/24/25 6. MASK: patient was not; friend was not until after urgent care visit 7. SYMPTOMS: none 8. COVID-19 VACCINE: see historical info 9. OR : N/A 10. HIGH RISK: no weakened immune system Protocols used: COVID-19 - [id number] [facility] Work Phone: 02-10-2025 History of Present illness Narrative Radiology Service Progress Note PATIENT NAME: Cheryl Marrero DATE OF SERVICE: February 10, 2025 TIME: 8:51 AM PATIENT IDENTITY VERIFICATION COMPLETED USING TWO (2) IDENTIFIERS: Name and Date of confirmed by patient verbally. FALL SCREENING: Has the patient had 2 falls in the last year or 1 fall with injury or currently using an Ambulatory Assistive Device (Walker, Cane, Wheelchair, Crutches, etc.)? No PATIENT GENDER DATA: Assigned female at . status: : No status: NO. PATIENT RELEVANT IMPLANT DATA REVIEWED: Not Applicable PATIENT PRESENTS WITH AN IMPLANTABLE OR ATTACHED CUPOLA TAPPER: No RADIOLOGY DEPARTMENT: Mammography PERIPHERAL IV DATA: Not applicable SIGNED BY: Gela Norton February 10, 2025 8:51 AM documented in this encounter [facility] 02-10-2025 Note HNO ID: [id number] Author: LIANE TUCKER Mammo Tech Service: ? Author Type: Manager Drive Type: Progress Notes Filed: 02/10/2025 08:51 Note Text: Radiology Service Progress Note PATIENT NAME: Cheryl Marrero DATE OF SERVICE: February 10, 2025 TIME: 8:51 AM PATIENT IDENTITY VERIFICATION COMPLETED USING TWO (2) IDENTIFIERS: Name and Date of confirmed by patient verbally. FALL SCREENING: Has the patient had 2 falls in the last year or 1 fall with injury or currently using an Ambulatory Assistive Device (Walker, Cane, Wheelchair, Crutches, etc.)? No PATIENT GENDER DATA: Assigned female at . status: : No status: NO. PATIENT RELEVANT IMPLANT DATA REVIEWED: Not Applicable PATIENT PRESENTS WITH AN IMPLANTABLE OR ATTACHED CUPOLA TAPPER: No RADIOLOGY DEPARTMENT: Mammography PERIPHERAL IV DATA: Not applicable SIGNED BY: Liane Tucker [employer] February 10, 2025 8:51 AM [facility] 02-05-2025 Instructions Afia Schafer APRN.CNP - 02/05/2025 1:29 PM EDT - Start taking Wellbutrin XL (bupropion extended-release) 300 mg once daily in the morning. Use two of your 150 mg tablets each morning until your new 300 mg tablets arrive. - Monitor how you feel on the new dose over the next 2-3 weeks. Send us a message with an update on your mood and sleep. - If you haven t noticed improvement in mood or if you re still having trouble sleeping, let us know so we can discuss adding a nighttime sleep aid. documented in this encounter [facility] 02-05-2025 Note HNO ID: [id number] Author: AFIA SCHAFER APRN.BE Service: ? Author Type: Nurse Practitioner Type: Progress Notes Filed: 02/05/2025 13:30 Note Text: This is a 79 year old female who presents today with: No chief complaint on file. HISTORY OF PRESENT ILLNESS: Cheryl Marrero is a 79 year old female. No chief complaint on file. Cheryl Marrero is an 79-year-old female with a history of depression, presenting for follow-up after a recent increase in Wellbutrin dosage, with additional complaints of insomnia, tremors, and back pain. Depression: - Recent increase in Wellbutrin dosage from 150 mg to 300 mg daily. - Cheryl reports increased tearfulness and stress. - Feels like a failure as a mom due to concerns about her homeless son. - Denies palpitations. - No changes in hearing or vision. - No significant chest pain or cough. - No significant edema in extremities. Insomnia: - Difficulty falling asleep until 01:00-02:00. - Frequent nocturia disrupts sleep; unable to fall back asleep. - Describes herself as a worrier by nature. - Takes 2-3 naps daily; gets at least 7 hours of rest, though fragmented. Tremors: - Reports generalized tremors, denies nervous energy or heart racing. Back Pain: - Chronic back pain, managed with chiropractic visits every 2 weeks. - Previous back injection provided no relief. - Taking methocarbamol, unclear if it helps. Knee Pain: - Persistent knee pain since surgery in 2020. - History of infection requiring spacer and antibiotics. - Denies desire for further surgery. Bowel and Bladder Changes: - Variable bowel movements; recent increase in diarrhea. - Frequent urination. PAST MEDICAL HISTORY: PAST MEDICAL HISTORY Diagnosis Date Adjustment disorder with depressed mood Anxiety state, unspecified Arthritis Asthma (HCC) Coronary artery disease Diverticulosis of colon (without mention of hemorrhage) Hemorrhage of gastrointestinal tract, unspecified Iron deficiency anemia 06/29/2021 Localized osteoarthrosis not specified whether primary or secondary, lower leg Lung nodules Myalgia Obstructive sleep apnea Other and unspecified hyperlipidemia Seasonal allergies Shingles 01/2017 Urge urinary incontinence PAST SURGICAL HISTORY Procedure Laterality Date ABDOMINAL SURGERY HX BREAST CYST PUNCTURE/BC BX OF BREAST; INCISIONAL Left 08/04/2024 CHOLECYSTECTOMY 04/09/2000 lap choley COLONOSCOPY - DIAGNOSTIC 11/01/2000 COLONOSCOPY FLX DX W/COLLJ SPEC WHEN PFRMD 09/09/2008 Colonoscopy COLONOSCOPY FLX DX W/COLLJ SPEC WHEN PFRMD 07/01/2014 Colonoscopy COLONOSCOPY FLX DX W/COLLJ SPEC WHEN PFRMD 11/05/2019 Colonoscopy COLONOSCOPY FLX DX W/COLLJ SPEC WHEN PFRMD 06/13/2021 ECHOCARDIOGRAM 04/24/2021 echo: LV small, LV SF WNL, EF 65%, grade 1 LVDD. All wall motion score normal. RV size and RV SF WNL, RVSP 38 mmHg consistent with mild pulmonary hypertension. LA and RA normal in size, inferior vena cava normal. MV: 0-1+ MVR, TV normal, 0-1+ TR, AV normal, PV not seen, 0-1+ FL. Mid a sending aorta 3.2 cm. Echocardiogram pulmonary arteries not interrogated, no pericardial effusion ESOPHAGOGASTRODUODENOSCOPY TRANSORAL DIAGNOSTIC 11/05/2019 EGD ESOPHAGOGASTRODUODENOSCOPY TRANSORAL DIAGNOSTIC 06/13/2021 Dr.Guttman TAVERAS BREAST LESION Left 07/07/2024 US guided core bx Lt breast EYE SURGERY HX HEMORRHOIDECTOMY INTERNAL RUBBER BAND LIGATIONS 11/05/2019 PICC LINE INSERT/CONSULT 08/24/2021 SKIN BIOPSY HX TONSILLECTOMY HX TONSILLECTOMY PRIMARY/SECONDARY TOTAL KNEE REPLACEMENT ALLERGIES Phenergan [Promethazine Hcl], Vmczeon-Yyf-Tdy Reductase Inhibitors, Adhesive, Breo Ellipta [Fluticasone Furoate-Vilanterol], Penicillins, Roxicodone [Oxycodone], Sulfa (Sulfonamide Antibiotics), and Vancomycin MEDICATIONS Current Outpatient Medications Medication Sig buPROPion XL (WELLBUTRIN XL) 300 mg 24 hr tablet Take 1 tablet by mouth once daily. folic acid 1 mg tablet Take 1 tablet by mouth once daily. lansoprazole (PREVACID) 30 mg capsule Take 1 capsule by mouth once daily. metoprolol succinate ER (TOPROL XL) 25 mg 24 hr tablet Take 1 tablet by mouth two times a day. rosuvastatin (CRESTOR) 5 mg tablet Take 1 tablet by mouth daily at bedtime. albuterol HFA (PROAIR HFA) 90 mcg/actuation inhaler Inhale 2 Puffs as instructed every 6 hours as needed. meclizine (ANTIVERT) 25 mg tab Take 25 mg by mouth three times daily as needed. From [facility] er clindamycin (CLEOCIN) 300 mg capsule Take 2 capsules by mouth one hour prior to dental cleaning/procedure ascorbic acid (VITAMIN C ORAL) Take 1 tablet by mouth once daily. 1000mg polyethylene glycol 3350 (MIRALAX ORAL) Take 1 Tablespoonful by mouth as needed. acetaminophen (TYLENOL) 500 mg tablet Take 2 tablets by mouth every 8 hours as needed. fluticasone (FLONASE) 50 mcg/actuation nasal spray Use 1 [place] in each nostril once daily. vitamin B complex (B COM (more content not included)... [facility] 02-05-2025 History of Present illness Narrative This is a 79 year old female who presents today with: No chief complaint on file. HISTORY OF PRESENT ILLNESS: Cheryl Marrero is a 79 year old female. No chief complaint on file. Cheryl Marrero is an 79-year-old female with a history of depression, presenting for follow-up after a recent increase in Wellbutrin dosage, with additional complaints of insomnia, tremors, and back pain. Depression: - Recent increase in Wellbutrin dosage from 150 mg to 300 mg daily. - Cheryl reports increased tearfulness and stress. - Feels like a failure as a mom due to concerns about her homeless son. - Denies palpitations. - No changes in hearing or vision. - No significant chest pain or cough. - No significant edema in extremities. Insomnia: - Difficulty falling asleep until 01:00-02:00. - Frequent nocturia disrupts sleep; unable to fall back asleep. - Describes herself as a worrier by nature. - Takes 2-3 naps daily; gets at least 7 hours of rest, though fragmented. Tremors: - Reports generalized tremors, denies nervous energy or heart racing. Back Pain: - Chronic back pain, managed with chiropractic visits every 2 weeks. - Previous back injection provided no relief. - Taking methocarbamol, unclear if it helps. Knee Pain: - Persistent knee pain since surgery in 2020. - History of infection requiring spacer and antibiotics. - Denies desire for further surgery. Bowel and Bladder Changes: - Variable bowel movements; recent increase in diarrhea. - Frequent urination. PAST MEDICAL HISTORY: PAST MEDICAL HISTORY Diagnosis Date Adjustment disorder with depressed mood Anxiety state, unspecified Arthritis Asthma (HCC) Coronary artery disease Diverticulosis of colon (without mention of hemorrhage) Hemorrhage of gastrointestinal tract, unspecified Iron deficiency anemia 06/29/2021 Localized osteoarthrosis not specified whether primary or secondary, lower leg Lung nodules Myalgia Obstructive sleep apnea Other and unspecified hyperlipidemia Seasonal allergies Shingles 01/2017 Urge urinary incontinence PAST SURGICAL HISTORY Procedure Laterality Date ABDOMINAL SURGERY HX BREAST CYST PUNCTURE/BC BX OF BREAST; INCISIONAL Left 08/04/2024 CHOLECYSTECTOMY 04/09/2000 lap choley COLONOSCOPY - DIAGNOSTIC 11/01/2000 COLONOSCOPY FLX DX W/COLLJ SPEC WHEN PFRMD 09/09/2008 Colonoscopy COLONOSCOPY FLX DX W/COLLJ SPEC WHEN PFRMD 07/01/2014 Colonoscopy COLONOSCOPY FLX DX W/COLLJ SPEC WHEN PFRMD 11/05/2019 Colonoscopy COLONOSCOPY FLX DX W/COLLJ SPEC WHEN PFRMD 06/13/2021 ECHOCARDIOGRAM 04/24/2021 echo: LV small, LV SF WNL, EF 65%, grade 1 LVDD. All wall motion score normal. RV size and RV SF WNL, RVSP 38 mmHg consistent with mild pulmonary hypertension. LA and RA normal in size, inferior vena cava normal. MV: 0-1+ MVR, TV normal, 0-1+ TR, AV normal, PV not seen, 0-1+ FL. Mid a sending aorta 3.2 cm. Echocardiogram pulmonary arteries not interrogated, no pericardial effusion ESOPHAGOGASTRODUODENOSCOPY TRANSORAL DIAGNOSTIC 11/05/2019 EGD ESOPHAGOGASTRODUODENOSCOPY TRANSORAL DIAGNOSTIC 06/13/2021 EXCIS BREAST LESION Left 07/07/2024 US guided core bx Lt breast EYE SURGERY HX HEMORRHOIDECTOMY INTERNAL RUBBER BAND LIGATIONS 11/05/2019 PICC LINE INSERT/CONSULT 08/24/2021 SKIN BIOPSY HX TONSILLECTOMY HX TONSILLECTOMY PRIMARY/SECONDARY <AGE 12 TOTAL KNEE REPLACEMENT ALLERGIES Phenergan [Promethazine Hcl], Ibndvqb-Kds-Qsn Reductase Inhibitors, Adhesive, Breo Ellipta [Fluticasone Furoate-Vilanterol], Penicillins, Roxicodone [Oxycodone], Sulfa (Sulfonamide Antibiotics), and Vancomycin MEDICATIONS Current Outpatient Medications Medication Sig buPROPion XL (WELLBUTRIN XL) 300 mg 24 hr tablet Take 1 tablet by mouth once daily. folic acid 1 mg tablet Take 1 tablet by mouth once daily. lansoprazole (PREVACID) 30 mg capsule Take 1 capsule by mouth once daily. metoprolol succinate ER (TOPROL XL) 25 mg 24 hr tablet Take 1 tablet by mouth two times a day. rosuvastatin (CRESTOR) 5 mg tablet Take 1 tablet by mouth daily at bedtime. albuterol HFA (PROAIR HFA) 90 mcg/actuation inhaler Inhale 2 Puffs as instructed every 6 hours as needed. meclizine (ANTIVERT) 25 mg tab Take 25 mg by mouth three times daily as needed. From [facility] clindamycin (CLEOCIN) 300 mg capsule Take 2 capsules by mouth one hour prior to dental cleaning/procedure ascorbic acid (VITAMIN C ORAL) Take 1 tablet by mouth once daily. 1000mg polyethylene glycol 3350 (MIRALAX ORAL) Take 1 Tablespoonful by mouth as needed. acetaminophen (TYLENOL) 500 mg tablet Take 2 tablets by mouth every 8 hours as needed. fluticasone (FLONASE) 50 mcg/actuation nasal spray Use 1 [place] in each nostril once daily. vitamin B complex (B COMPLEX 1 ORAL) Take 1 tablet by mouth once daily. cholecalciferol (VITAMIN D3) 1,000 unit tab tablet Take 1,000 Units by mouth once daily. No current facility-administered medications for this visit. FAMILY HISTORY Problem Relation Age of Onset Ischemic Heart Disease Father PASSED FROM [place] Diabetes Father Ischemic Heart Disease Mother PASSED FROM [place] Coronary Artery Disease Brother stent Diabetes Sister Cancer Maternal Grandfather lung Cancer Paternal Grandfather lung Social History Tobacco Use Smoking status: Never Smokeless tobacco: Never Tobacco comments: Lived with smokers in childhood home and until 2002. Vaping Use Vaping status: Never Used Substance Use Topics Alcohol use: No Drug use: No REVIEW OF SYSTEMS Constitutional: (+) insomnia Head: (+) headache Eyes: (-) visual changes Ears/Nose/Mouth/Throat: (-) hearing changes Cardiovascular: (-) palpitations, (-) chest pain Gastrointestinal: (+) diarrhea Genitourinary: (+) nocturia, (+) urinary frequency Musculoskeletal: (+) knee pain, (+) back pain, (-) lower extremity swelling Neurological: (+) tremor Psychiatric: (+) tearfulness, (+) anxiety EXAM: BP 132/82 Pulse 79 Wt 73.5 kg (162 lb) SpO2 98% BMI 25.37 kg/m PHYSICAL EXAM: GENERAL: NAD, alert and oriented. SKIN: Unremarkable, no rash or skin lesions. HEAD: Normocephalic. LUNGS: Clear to auscultation bilaterally, no wheezes/rhonchi/rales. HEART: Regular rate and rhythm, no murmurs. No ectopy. EXTREMITIES: Normal, no deformities, no skin discoloration, no edema. NEURO: Awake, alert and oriented x3, cranial nerves II-XII grossly intact, normal gait, no involuntary motions. LABS: ASSESSMENT/PLAN: 1. Anxiety with depression (F41.8) - Symptoms of increased tearfulness and stress; difficulty falling asleep due to racing thoughts. - No palpitations or tachycardia reported; vital signs stable with BP 132/82 mmHg and HR 79 bpm. - Recent increase in Wellbutrin XL from 150 mg to 300 mg daily; patient has already obtained the new dosage. - Educated on potential side effects of Wellbutrin, including mild stimulant effects and possible weight loss. - Advised to monitor symptoms and report any changes in 2-3 weeks. 2. Obstructive sleep apnea (G47.33) - Continues to experience fragmented sleep, with difficulty returning to sleep after nocturia. - Taking multiple naps during the day, totaling over seven hours of rest. - Will reassess sleep quality in 2-3 weeks; consider adding a sleep aid if nocturnal rest does not improve. Discussed treatment plan and patient voices understanding. Patient's questions answered appropriately. Medications and potential side effects were discussed and patient voices understanding. Return to the office as scheduled or as needed for worsening/no improvement. Afia Schafer APRN.ROOF BOLTER OPERATOR documented in this encounter [facility] 02-03-2025 Telephone encounter Note Patient returned call and went over notes. Scheduled appt for 02/05/2025 at 1240 pm with Erica. [facility] 02-03-2025 Miscellaneous Notes Patient returned call and went over notes. Scheduled appt for 02/05/2025 at 1240 pm with Erica. I attempted to call patient and left her a message to schedule a visit. documented in this encounter [facility] 02-03-2025 Telephone encounter Note I attempted to call patient and left her a message to schedule a visit. [facility] 12-08-2024 Note HNO ID: [id number] Author: DOMINGA ANN APRN.ROOF BOLTER OPERATOR Service: ? Author Type: Nurse Practitioner Type: Progress Notes Filed: 12/08/2024 17:49 Note Text: This is a 79 year old female who presents today with: Cheryl is an 79-year-old female presenting with left arm pain, rash on the right elbow, and diarrhea. HISTORY OF PRESENT ILLNESS: Left Arm Pain: - Intermittent pain in the right arm x1 week, severe enough to cause sleep disturbances for the past two nights. - Pain began in the elbow and radiates to the palm, lateral aspect of the arm, and fingers, shoulder, lateral aspect of chest wall. - Described as both sharp and dull, with no specific aggravating or alleviating factors identified. - Pain is constant in some areas, with occasional shooting pain up the fingers. - Denies associated chest pain, dyspnea, palpitations, dizziness, or diaphoresis. - Erythematous rash on the left elbow, noticed yesterday morning. - Rash is described as red, with associated pruritus and pain. - Denies any other rashes on the body. Diarrhea: - Diarrhea x3 days, with 3-4 bowel movements per day. - Associated with generalized abdominal discomfort and nausea, but no emesis. - Denies hematochezia or melena. - Tolerating oral intake. - Denies fever or chills, but reports experiencing hot flashes. PAST MEDICAL HISTORY: PAST MEDICAL HISTORY Diagnosis Date Adjustment disorder with depressed mood Anxiety state, unspecified Arthritis Asthma (HCC) Coronary artery disease Diverticulosis of colon (without mention of hemorrhage) Hemorrhage of gastrointestinal tract, unspecified Iron deficiency anemia 06/29/2021 Localized osteoarthrosis not specified whether primary or secondary, lower leg Lung nodules Myalgia Obstructive sleep apnea Other and unspecified hyperlipidemia Seasonal allergies Shingles 01/2017 Urge urinary incontinence PAST SURGICAL HISTORY Procedure Laterality Date ABDOMINAL SURGERY HX BREAST CYST PUNCTURE/BC BX OF BREAST; INCISIONAL Left 08/04/2024 CHOLECYSTECTOMY 04/09/2000 lap choley COLONOSCOPY - DIAGNOSTIC 11/01/2000 COLONOSCOPY FLX DX W/COLLJ SPEC WHEN PFRMD 09/09/2008 Colonoscopy COLONOSCOPY FLX DX W/COLLJ SPEC WHEN PFRMD 07/01/2014 Colonoscopy COLONOSCOPY FLX DX W/COLLJ SPEC WHEN PFRMD 11/05/2019 Colonoscopy COLONOSCOPY FLX DX W/COLLJ SPEC WHEN PFRMD 06/13/2021 ECHOCARDIOGRAM 04/24/2021 echo: LV small, LV SF WNL, EF 65%, grade 1 LVDD. All wall motion score normal. RV size and RV SF WNL, RVSP 38 mmHg consistent with mild pulmonary hypertension. LA and RA normal in size, inferior vena cava normal. MV: 0-1+ MVR, TV normal, 0-1+ TR, AV normal, PV not seen, 0-1+ FL. Mid a sending aorta 3.2 cm. Echocardiogram pulmonary arteries not interrogated, no pericardial effusion ESOPHAGOGASTRODUODENOSCOPY TRANSORAL DIAGNOSTIC 11/05/2019 EGD ESOPHAGOGASTRODUODENOSCOPY TRANSORAL DIAGNOSTIC 06/13/2021 EXCIS BREAST LESION Left 07/07/2024 US guided core bx Lt breast EYE SURGERY HX HEMORRHOIDECTOMY INTERNAL RUBBER BAND LIGATIONS 11/05/2019 PICC LINE INSERT/CONSULT 08/24/2021 SKIN BIOPSY HX TONSILLECTOMY HX TONSILLECTOMY PRIMARY/SECONDARY TOTAL KNEE REPLACEMENT ALLERGIES Phenergan [Promethazine Hcl], Nhlmtuv-Buj-Afd Reductase Inhibitors, Adhesive, Breo Ellipta [Fluticasone Furoate-Vilanterol], Penicillins, Roxicodone [Oxycodone], Sulfa (Sulfonamide Antibiotics), and Vancomycin MEDICATIONS Current Outpatient Medications Medication Sig gabapentin (NEURONTIN) 100 mg capsule Take 1 capsule by mouth three times a day as needed for up to 30 days. valACYclovir (VALTREX) 1 gram tablet Take 1 tablet by mouth two times a day for 7 days. diclofenac (VOLTAREN) 1 % topical gel Apply 2 g to affected area two times a day as needed. buPROPion XL (WELLBUTRIN XL) 150 mg 24 hr tablet Take 1 tablet by mouth once daily. folic acid 1 mg tablet Take 1 tablet by mouth once daily. lansoprazole (PREVACID) 30 mg capsule Take 1 capsule by mouth once daily. metoprolol succinate ER (TOPROL XL) 25 mg 24 hr tablet Take 1 tablet by mouth two times a day. rosuvastatin (CRESTOR) 5 mg tablet Take 1 tablet by mouth daily at bedtime. albuterol HFA (PROAIR HFA) 90 mcg/actuation inhaler Inhale 2 Puffs as instructed every 6 hours as needed. meclizine (ANTIVERT) 25 mg tab Take 25 mg by mouth three times daily as needed. From [facility] clindamycin (CLEOCIN) 300 mg capsule Take 2 capsules by mouth one hour prior to dental cleaning/procedure ascorbic acid (VITAMIN C ORAL) Take 1 tablet by mouth once daily. 1000mg polyethylene glycol 3350 (MIRALAX ORAL) Take 1 Tablespoonful by mouth as needed. acetaminophen (TYLENOL) 500 mg tablet Take 2 tablets by mouth every 8 hours as needed. fluticasone (FLONASE) 50 mcg/actuation nasal spray Use 1 [place] in each nostril once daily. vitamin B complex (B COMPLEX 1 ORAL) Take 1 tablet by mouth once daily. chol (more content not included)... [facility] 12-08-2024 History of Present illness Narrative This is a 79 year old female who presents today with: Cheryl is an 79-year-old female presenting with left arm pain, rash on the right elbow, and diarrhea. HISTORY OF PRESENT ILLNESS: Left Arm Pain: - Intermittent pain in the right arm x1 week, severe enough to cause sleep disturbances for the past two nights. - Pain began in the elbow and radiates to the palm, lateral aspect of the arm, and fingers, shoulder, lateral aspect of chest wall. - Described as both sharp and dull, with no specific aggravating or alleviating factors identified. - Pain is constant in some areas, with occasional shooting pain up the fingers. - Denies associated chest pain, dyspnea, palpitations, dizziness, or diaphoresis. - Erythematous rash on the left elbow, noticed yesterday morning. - Rash is described as red, with associated pruritus and pain. - Denies any other rashes on the body. Diarrhea: - Diarrhea x3 days, with 3-4 bowel movements per day. - Associated with generalized abdominal discomfort and nausea, but no emesis. - Denies hematochezia or melena. - Tolerating oral intake. - Denies fever or chills, but reports experiencing hot flashes. PAST MEDICAL HISTORY: PAST MEDICAL HISTORY Diagnosis Date Adjustment disorder with depressed mood Anxiety state, unspecified Arthritis Asthma (HCC) Coronary artery disease Diverticulosis of colon (without mention of hemorrhage) Hemorrhage of gastrointestinal tract, unspecified Iron deficiency anemia 06/29/2021 Localized osteoarthrosis not specified whether primary or secondary, lower leg Lung nodules Myalgia Obstructive sleep apnea Other and unspecified hyperlipidemia Seasonal allergies Shingles 01/2017 Urge urinary incontinence PAST SURGICAL HISTORY Procedure Laterality Date ABDOMINAL SURGERY HX BREAST CYST PUNCTURE/BC BX OF BREAST; INCISIONAL Left 08/04/2024 CHOLECYSTECTOMY 04/09/2000 lap choley COLONOSCOPY - DIAGNOSTIC 11/01/2000 COLONOSCOPY FLX DX W/COLLJ SPEC WHEN PFRMD 09/09/2008 Colonoscopy COLONOSCOPY FLX DX W/COLLJ SPEC WHEN PFRMD 07/01/2014 Colonoscopy COLONOSCOPY FLX DX W/COLLJ SPEC WHEN PFRMD 11/05/2019 Colonoscopy COLONOSCOPY FLX DX W/COLLJ SPEC WHEN PFRMD 06/13/2021 ECHOCARDIOGRAM 04/24/2021 echo: LV small, LV SF WNL, EF 65%, grade 1 LVDD. All wall motion score normal. RV size and RV SF WNL, RVSP 38 mmHg consistent with mild pulmonary hypertension. LA and RA normal in size, inferior vena cava normal. MV: 0-1+ MVR, TV normal, 0-1+ TR, AV normal, PV not seen, 0-1+ FL. Mid a sending aorta 3.2 cm. Echocardiogram pulmonary arteries not interrogated, no pericardial effusion ESOPHAGOGASTRODUODENOSCOPY TRANSORAL DIAGNOSTIC 11/05/2019 EGD ESOPHAGOGASTRODUODENOSCOPY TRANSORAL DIAGNOSTIC 06/13/2021 EXCIS BREAST LESION Left 07/07/2024 US guided core bx Lt breast EYE SURGERY HX HEMORRHOIDECTOMY INTERNAL RUBBER BAND LIGATIONS 11/05/2019 PICC LINE INSERT/CONSULT 08/24/2021 SKIN BIOPSY HX TONSILLECTOMY HX TONSILLECTOMY PRIMARY/SECONDARY <AGE 12 TOTAL KNEE REPLACEMENT ALLERGIES Phenergan [Promethazine Hcl], Euejdym-Ycd-Daz Reductase Inhibitors, Adhesive, Breo Ellipta [Fluticasone Furoate-Vilanterol], Penicillins, Roxicodone [Oxycodone], Sulfa (Sulfonamide Antibiotics), and Vancomycin MEDICATIONS Current Outpatient Medications Medication Sig gabapentin (NEURONTIN) 100 mg capsule Take 1 capsule by mouth three times a day as needed for up to 30 days. valACYclovir (VALTREX) 1 gram tablet Take 1 tablet by mouth two times a day for 7 days. diclofenac (VOLTAREN) 1 % topical gel Apply 2 g to affected area two times a day as needed. buPROPion XL (WELLBUTRIN XL) 150 mg 24 hr tablet Take 1 tablet by mouth once daily. folic acid 1 mg tablet Take 1 tablet by mouth once daily. lansoprazole (PREVACID) 30 mg capsule Take 1 capsule by mouth once daily. metoprolol succinate ER (TOPROL XL) 25 mg 24 hr tablet Take 1 tablet by mouth two times a day. rosuvastatin (CRESTOR) 5 mg tablet Take 1 tablet by mouth daily at bedtime. albuterol HFA (PROAIR HFA) 90 mcg/actuation inhaler Inhale 2 Puffs as instructed every 6 hours as needed. meclizine (ANTIVERT) 25 mg tab Take 25 mg by mouth three times daily as needed. From [facility] clindamycin (CLEOCIN) 300 mg capsule Take 2 capsules by mouth one hour prior to dental cleaning/procedure ascorbic acid (VITAMIN C ORAL) Take 1 tablet by mouth once daily. 1000mg polyethylene glycol 3350 (MIRALAX ORAL) Take 1 Tablespoonful by mouth as needed. acetaminophen (TYLENOL) 500 mg tablet Take 2 tablets by mouth every 8 hours as needed. fluticasone (FLONASE) 50 mcg/actuation nasal spray Use 1 [place] in each nostril once daily. vitamin B complex (B COMPLEX 1 ORAL) Take 1 tablet by mouth once daily. cholecalciferol (VITAMIN D3) 1,000 unit tab tablet Take 1,000 Units by mouth once daily. No current facility-administered medications for this visit. FAMILY HISTORY Problem Relation Age of Onset Ischemic Heart Disease Father P[place]ED [place] Diabetes Father Ischemic Heart Disease Mother PASSED FROM [place] Coronary Artery Disease Brother stent Diabetes Sister Cancer Maternal Grandfather lung Cancer Paternal Grandfather lung Social History Tobacco Use Smoking status: Never Smokeless tobacco: Never Tobacco comments: Lived with smokers in childhood home and until 2002. Vaping Use Vaping status: Never Used Substance Use Topics Alcohol use: No Drug use: No REVIEW OF SYSTEMS Constitutional: (-) fever, (-) chills, (+) hot flashes, (+) sleep disturbance Cardiovascular: (-) chest pain, (-) palpitations Respiratory: (-) shortness of breath Gastrointestinal: (+) nausea, (+) diarrhea, (-) vomiting, (-) blood in stool, (-) black tarry stool Musculoskeletal: (+) left elbow pain, (+) left upper extremity pain, (+) back pain Skin: (+) rash (left elbow), (+) itching Neurological: (-) numbness, (-) tingling, (-) dizziness Psychiatric: (+) stress EXAM: BP 142/80 Pulse 76 Resp 16 SpO2 95% PHYSICAL EXAM: General Appearance: Well appearing, alert, in no acute distress, well-hydrated, well nourished.. Skin: Skin color, texture, turgor normal, no suspicious rashes or lesions. Head: Normocephalic, no masses, lesions, tenderness or abnormalities. Eyes: Anicteric sclera. Extraocular movements are intact. . Lungs: Lungs clear to auscultation. No wheezing, rhonchi, rales.. Heart: RRR without murmur, gallop, or rubs. No ectopy. Abdomen: Abdomen soft, non-tender. Bowel sounds normal. No masses, organomegaly. Extremities: clustered rash noted on the posterior aspect of the left elbow. Neurologic: Gait w/ limp ASSESSMENT/PLAN 1. Herpes zoster without complication (B02.9) - Differential diagnosis includes herpes zoster due to the nature and distribution of the pain and the recent appearance of a rash on the elbow. - Initiated valacyclovir 1000 mg orally twice daily for 7 days to address potential herpes zoster infection. (Creat clearance - 46.94) - Prescribed gabapentin 100 mg orally three times daily as needed for neuropathic pain, with instructions to increase to 200 mg if well-tolerated; patient to notify for dosage adjustment. - Educated on the potential side effects of gabapentin, including drowsiness and imbalance, and advised that these effects typically diminish with continued use. - Discussed the use of gabapentin for postmenopausal hot flashes, which may provide additional benefit. - Advised to monitor for additional rash development and report any new lesions. - Instructed to avoid contact with individuals and those who have not had chickenpox. - Patient understands and agrees with the treatment plan. Discussed treatment plan and patient voices understanding. Patient's questions answered appropriately. Medications and potential side effects were discussed and patient voices understanding. Return to the office as scheduled or as needed for worsening/no improvement. Dominga Ann APRN.ROOF BOLTER OPERATOR Recording using [employer] software for draft documentation of the visit was discussed with the patient/authorized veterans employment representative; all questions welcomed and answered. Patient/authorized veterans employment representative agreed to proceed documented in this encounter [facility] 12-08-2024 Instructions Dominga Ann APRN.CNP - 12/08/2024 4:33 PM EDT Start taking valacyclovir: 1 tablet by mouth twice daily for 7 days. Pick it up at [facility]. Begin gabapentin 100 mg up to 3 times a day as needed for nerve pain; use it for up to 30 days. If you find the pain is not well controlled or you feel overly drowsy, send a message so we can adjust the dose. Monitor the red rash on your elbow and any new patches. If you notice additional rash or worsening of your current rash, notify us promptly. There is no requirement to take these medications with food unless you experience nausea. Avoid sharing personal items like bath towels with others while you are being treated. Follow these instructions closely and feel free to contact us if you have any concerns or if your symptoms change. documented in this encounter [facility] 12-08-2024 Telephone encounter Note Protocol recommends see provider within 24 hours. Advised patient that if any chest pain, SOB, numbness or tingling worsens, weakness of arm, change in color or temperature of arm, immediately call 911 and get to the ER. Reason for Disposition Numbness (i.e., loss of sensation) in hand or fingers (Exceptions: Just tingling; numbness present > 2 weeks.) [1] Painful rash AND [2] multiple small blisters grouped together (i.e., dermatomal distribution or band or stripe) Answer Assessment - Initial Assessment Questions 1. ONSET: Approximately a week ago but has gradually worsened. 2. LOCATION: left shoulder down to left hand-pain sites change. At this moment, she states the pain is in her left elbow and the palm of her left hand. The pain has even been under her arm and occasionally radiates snf to her left breast. 3. PAIN: currently /10. Last night was 05/05 where pt almost went to the ER. The last two nights, the pain has woke her up and she has been unable to sleep. - MILD (1-3): Doesn't interfere with normal activities. - MODERATE (4-7): Interferes with normal activities (e.g., work or school) or awakens from sleep. - SEVERE (8-10): Excruciating pain, unable to do any normal activities, unable to hold a cup of water. 4. WORK OR EXERCISE: Denies any recent work or exercise that involved her left arm or shoulder 5. CAUSE: Pt unsure but in talking with her, pt noticed a rash on the top of her lower left arm yesterday. States it looked like a floor burn. Today she states it now has bumps and is itchy. 6. OTHER SYMPTOMS: Denies fever, neck pain, chest pain, SOB, difficulty breathing, weakness, color or temperature change or swelling of that left arm. Notes some numbness and tingling but is able to grasp a cup and julieta with that hand. 7. : n/a Protocols used: Arm [id number] [facility] 12-08-2024 Miscellaneous Notes Protocol recommends see provider within 24 hours. Advised patient that if any chest pain, SOB, numbness or tingling worsens, weakness of arm, change in color or temperature of arm, immediately call 911 and get to the ER. Reason for Disposition Numbness (i.e., loss of sensation) in hand or fingers (Exceptions: Just tingling; numbness present > 2 weeks.) [1] Painful rash AND [2] multiple small blisters grouped together (i.e., dermatomal distribution or band or stripe) Answer Assessment - Initial Assessment Questions 1. ONSET: Approximately a week ago but has gradually worsened. 2. LOCATION: left shoulder down to left hand-pain sites change. At this moment, she states the pain is in her left elbow and the palm of her left hand. The pain has even been under her arm and occasionally radiates snf to her left breast. 3. PAIN: currently 6/10. Last night was 05/05 where pt almost went to the ER. The last two nights, the pain has woke her up and she has been unable to sleep. - MILD (1-3): Doesn't interfere with normal activities. - MODERATE (4-7): Interferes with normal activities (e.g., work or school) or awakens from sleep. - SEVERE (8-10): Excruciating pain, unable to do any normal activities, unable to hold a cup of water. 4. WORK OR EXERCISE: Denies any recent work or exercise that involved her left arm or shoulder 5. CAUSE: Pt unsure but in talking with her, pt noticed a rash on the top of her lower left arm yesterday. States it looked like a floor burn. Today she states it now has bumps and is itchy. 6. OTHER SYMPTOMS: Denies fever, neck pain, chest pain, SOB, difficulty breathing, weakness, color or temperature change or swelling of that left arm. Notes some numbness and tingling but is able to grasp a cup and julieta with that hand. 7. : n/a Protocols used: Arm [id number] documented in this encounter [facility] 11-23-2024 Note HNO ID: [id number] Author: FRANCISCO BROOKS MD Service: ? Author Type: Physician Type: Progress Notes Filed: 11/23/2024 09:14 Note Text: Francisco Brooks MD Interventional Cardiology [address] [place] [address] [phone] Chief Complaint Patient presents with: New Patient HISTORY OF PRESENT ILLNESS: Ms. Marrero is a 79 year old female seen in my office to establish cardiology care and assessment management for possible valvular heart disease Patient denies any cardiac history in the past denies any history of coronary artery disease stent or bypass surgery she was told she had a leaky valve by echocardiography in the past and she has been followed in my [facility] Asymptomatic denies chest pain or shortness of breath no signs or symptoms of congestive heart failure Echocardiography February 2023 revealed normal left ventricular function with normal right ventricular function trace +1 pulmonic regurgitation 1+ tricuspid regurgitation normal aortic valve normal mitral valve Cardiac Risk Factors age (male over 45, female over 55), hypertension PAST MEDICAL HISTORY Diagnosis Date Adjustment disorder with depressed mood Anxiety state, unspecified Arthritis Asthma Coronary artery disease Diverticulosis of colon (without mention of hemorrhage) Hemorrhage of gastrointestinal tract, unspecified Iron deficiency anemia 06/29/2021 Localized osteoarthrosis not specified whether primary or secondary, lower leg Lung nodules Myalgia Obstructive sleep apnea Other and unspecified hyperlipidemia Seasonal allergies Shingles 01/2017 Urge urinary incontinence PAST SURGICAL HISTORY Procedure Laterality Date ABDOMINAL SURGERY HX BREAST CYST PUNCTURE/BC BX OF BREAST; INCISIONAL Left 08/04/2024 CHOLECYSTECTOMY 04/09/2000 lap choley COLONOSCOPY - DIAGNOSTIC 11/01/2000 COLONOSCOPY FLX DX W/COLLJ SPEC WHEN PFRMD 09/09/2008 Colonoscopy COLONOSCOPY FLX DX W/COLLJ SPEC WHEN PFRMD 07/01/2014 Colonoscopy COLONOSCOPY FLX DX W/COLLJ SPEC WHEN PFRMD 11/05/2019 Colonoscopy COLONOSCOPY FLX DX W/COLLJ SPEC WHEN PFRMD 06/13/2021 ECHOCARDIOGRAM 04/24/2021 echo: LV small, LV SF WNL, EF 65%, grade 1 LVDD. All wall motion score normal. RV size and RV SF WNL, RVSP 38 mmHg consistent with mild pulmonary hypertension. LA and RA normal in size, inferior vena cava normal. MV: 0-1+ MVR, TV normal, 0-1+ TR, AV normal, PV not seen, 0-1+ FL. Mid a sending aorta 3.2 cm. Echocardiogram pulmonary arteries not interrogated, no pericardial effusion ESOPHAGOGASTRODUODENOSCOPY TRANSORAL DIAGNOSTIC 11/05/2019 EGD ESOPHAGOGASTRODUODENOSCOPY TRANSORAL DIAGNOSTIC 06/13/2021 EXCIS BREAST LESION Left 07/07/2024 US guided core bx Lt breast EYE SURGERY HX HEMORRHOIDECTOMY INTERNAL RUBBER BAND LIGATIONS 11/05/2019 PICC LINE INSERT/CONSULT 08/24/2021 SKIN BIOPSY HX TONSILLECTOMY HX TONSILLECTOMY PRIMARY/SECONDARY TOTAL KNEE REPLACEMENT FAMILY HISTORY Problem Relation Age of Onset Ischemic Heart Disease Father PASSED FROM [place] Diabetes Father Ischemic Heart Disease Mother PASSED FROM [place] Coronary Artery Disease Brother stent Diabetes Sister Cancer Maternal Grandfather lung Cancer Paternal Grandfather lung Social History Tobacco Use Smoking status: Never Smokeless tobacco: Never Tobacco comments: Lived with smokers in childhood home and until 2002. Vaping Use Vaping status: Never Used Substance Use Topics Alcohol use: No Drug use: No ALLERGIES Allergen Reactions Phenergan [Prometha* Mental Status Change, Intolerance Alqnqip-Myg-Gpt Red* Other: See Comments Elevated liver enzymes in hospital, statins stopped. Adhesive Rash Breo Ellipta [Fluti* Other: See Comments Hoarseness/ Shortness of breath Penicillins Other: See Comments Local reaction at site of injection Roxicodone [Oxycodo* Intolerance Severe nausea and lightheadness Sulfa (Sulfonamide * Vancomycin Other: See Comments redness Medications: Current Outpatient Medications Medication Sig Dispense Refill predniSONE (DELTASONE) 10 mg tablet Take 1 tablet by mouth two times a day for 3 days. 6 tablet 0 doxycycline (VIBRA-TABS) 100 mg tablet Take 1 tablet by mouth two times a day for 10 days. 20 tablet 0 diclofenac (VOLTAREN) 1 % topical gel Apply 2 g to affected area two times a day as needed. 200 g 0 buPROPion XL (WELLBUTRIN XL) 150 mg 24 hr tablet Take 1 tablet by mouth once daily. 90 tablet 3 folic acid 1 mg tablet Take 1 tablet by mouth once daily. 90 tablet 3 lansoprazole (PREVACID) 30 mg capsule Take 1 capsule by mouth once daily. 90 capsule 3 metoprolol succinate ER (TOPROL XL) 25 mg 24 hr tablet Take 1 tablet by mouth two times a day. 180 tablet 3 rosuvastatin (CRESTOR) 5 mg tablet Take 1 tablet by mouth daily at bedtime. 90 tablet 3 albuterol HFA (PROAIR HFA) 90 mcg/actuation inhaler Inhale 2 Puffs as instructed every 6 (more content not included)... [facility] 11-23-2024 History of Present illness Narrative Images from the original note were not included. Francisco Brooks MD Interventional Cardiology [address] [place] [address] [phone] Chief Complaint Patient presents with: New Patient HISTORY OF PRESENT ILLNESS: Ms. Marrero is a 79 year old female seen in my office to establish cardiology care and assessment management for possible valvular heart disease Patient denies any cardiac history in the past denies any history of coronary artery disease stent or bypass surgery she was told she had a leaky valve by echocardiography in the past and she has been followed in my [facility] Asymptomatic denies chest pain or shortness of breath no signs or symptoms of congestive heart failure Echocardiography February 2023 revealed normal left ventricular function with normal right ventricular function trace +1 pulmonic regurgitation 1+ tricuspid regurgitation normal aortic valve normal mitral valve Cardiac Risk Factors age (male over 45, female over 55), hypertension PAST MEDICAL HISTORY Diagnosis Date Adjustment disorder with depressed mood Anxiety state, unspecified Arthritis Asthma Coronary artery disease Diverticulosis of colon (without mention of hemorrhage) Hemorrhage of gastrointestinal tract, unspecified Iron deficiency anemia 06/29/2021 Localized osteoarthrosis not specified whether primary or secondary, lower leg Lung nodules Myalgia Obstructive sleep apnea Other and unspecified hyperlipidemia Seasonal allergies Shingles 01/2017 Urge urinary incontinence PAST SURGICAL HISTORY Procedure Laterality Date ABDOMINAL SURGERY HX BREAST CYST PUNCTURE/BC BX OF BREAST; INCISIONAL Left 08/04/2024 CHOLECYSTECTOMY 04/09/2000 lap choley COLONOSCOPY - DIAGNOSTIC 11/01/2000 COLONOSCOPY FLX DX W/COLLJ SPEC WHEN PFRMD 09/09/2008 Colonoscopy COLONOSCOPY FLX DX W/COLLJ SPEC WHEN PFRMD 07/01/2014 Colonoscopy COLONOSCOPY FLX DX W/COLLJ SPEC WHEN PFRMD 11/05/2019 Colonoscopy COLONOSCOPY FLX DX W/COLLJ SPEC WHEN PFRMD 06/13/2021 ECHOCARDIOGRAM 04/24/2021 echo: LV small, LV SF WNL, EF 65%, grade 1 LVDD. All wall motion score normal. RV size and RV SF WNL, RVSP 38 mmHg consistent with mild pulmonary hypertension. LA and RA normal in size, inferior vena cava normal. MV: 0-1+ MVR, TV normal, 0-1+ TR, AV normal, PV not seen, 0-1+ FL. Mid a sending aorta 3.2 cm. Echocardiogram pulmonary arteries not interrogated, no pericardial effusion ESOPHAGOGASTRODUODENOSCOPY TRANSORAL DIAGNOSTIC 11/05/2019 EGD ESOPHAGOGASTRODUODENOSCOPY TRANSORAL DIAGNOSTIC 06/13/2021 EXCIS BREAST LESION Left 07/07/2024 US guided core bx Lt breast EYE SURGERY HX HEMORRHOIDECTOMY INTERNAL RUBBER BAND LIGATIONS 11/05/2019 PICC LINE INSERT/CONSULT 08/24/2021 SKIN BIOPSY HX TONSILLECTOMY HX TONSILLECTOMY PRIMARY/SECONDARY <AGE 11 TOTAL KNEE REPLACEMENT FAMILY HISTORY Problem Relation Age of Onset Ischemic Heart Disease Father PASSED FROM [place] Diabetes Father Ischemic Heart Disease Mother PASSED FROM [place] Coronary Artery Disease Brother stent Diabetes Sister Cancer Maternal Grandfather lung Cancer Paternal Grandfather lung Social History Tobacco Use Smoking status: Never Smokeless tobacco: Never Tobacco comments: Lived with smokers in childhood home and until 2002. Vaping Use Vaping status: Never Used Substance Use Topics Alcohol use: No Drug use: No ALLERGIES Allergen Reactions Phenergan [Prometha* Mental Status Change, Intolerance Blphqpi-Kff-Ovt Red* Other: See Comments Elevated liver enzymes in hospital, statins stopped. Adhesive Rash Breo Ellipta [Fluti* Other: See Comments Hoarseness/ Shortness of breath Penicillins Other: See Comments Local reaction at site of injection Roxicodone [Oxycodo* Intolerance Severe nausea and lightheadness Sulfa (Sulfonamide * Vancomycin Other: See Comments redness Medications: Current Outpatient Medications Medication Sig Dispense Refill predniSONE (DELTASONE) 10 mg tablet Take 1 tablet by mouth two times a day for 3 days. 6 tablet 0 doxycycline (VIBRA-TABS) 100 mg tablet Take 1 tablet by mouth two times a day for 10 days. 20 tablet 0 diclofenac (VOLTAREN) 1 % topical gel Apply 2 g to affected area two times a day as needed. 200 g 0 buPROPion XL (WELLBUTRIN XL) 150 mg 24 hr tablet Take 1 tablet by mouth once daily. 90 tablet 3 folic acid 1 mg tablet Take 1 tablet by mouth once daily. 90 tablet 3 lansoprazole (PREVACID) 30 mg capsule Take 1 capsule by mouth once daily. 90 capsule 3 metoprolol succinate ER (TOPROL XL) 25 mg 24 hr tablet Take 1 tablet by mouth two times a day. 180 tablet 3 rosuvastatin (CRESTOR) 5 mg tablet Take 1 tablet by mouth daily at bedtime. 90 tablet 3 albuterol HFA (PROAIR HFA) 90 mcg/actuation inhaler Inhale 2 Puffs as instructed every 6 hours as needed. 18 g 11 meclizine (ANTIVERT) 25 mg tab Take 25 mg by mouth three times daily as needed. From [facility] clindamycin (CLEOCIN) 300 mg capsule Take 2 capsules by mouth one hour prior to dental cleaning/procedure 2 capsule 1 ascorbic acid (VITAMIN C ORAL) Take 1 tablet by mouth once daily. 1000mg polyethylene glycol 3350 (MIRALAX ORAL) Take 1 Tablespoonful by mouth as needed. acetaminophen (TYLENOL) 500 mg tablet Take 2 tablets by mouth every 8 hours as needed. fluticasone (FLONASE) 50 mcg/actuation nasal spray Use 1 [place] in each nostril once daily. vitamin B complex (B COMPLEX 1 ORAL) Take 1 tablet by mouth once daily. cholecalciferol (VITAMIN D3) 1,000 unit tab tablet Take 1,000 Units by mouth once daily. No current facility-administered medications for this visit. Review of Systems Constitutional: Negative for chills, diaphoresis, fever, malaise/fatigue and weight loss. HENT: Negative for congestion, ear discharge, ear pain, hearing loss, nosebleeds, sinus pain, sore throat and tinnitus. Eyes: Negative for blurred vision, double vision, photophobia, pain, discharge and redness. Respiratory: Negative for cough, hemoptysis, sputum production, shortness of breath, wheezing and stridor. Cardiovascular: Negative for chest pain, palpitations, orthopnea, claudication, leg swelling and PND. Gastrointestinal: Negative for abdominal pain, blood in stool, constipation, diarrhea, heartburn, melena, nausea and vomiting. Genitourinary: Negative for dysuria, flank pain, frequency, hematuria and urgency. Musculoskeletal: Negative for back pain, falls, joint pain, myalgias and neck pain. Skin: Negative for itching and rash. Neurological: Negative for dizziness, tingling, tremors, sensory change, speech change, focal weakness, seizures, loss of consciousness, weakness and headaches. Endo/Heme/Allergies: Negative for environmental allergies and polydipsia. Does not bruise/bleed easily. Psychiatric/Behavioral: Negative for depression, hallucinations, memory loss, substance abuse and suicidal ideas. The patient is not nervous/anxious and does not have insomnia. Physical Examination: Vitals:BP 162/84 Pulse 82 Resp 12 Ht 5' 7 (1.70m) Wt 168 lb (76.2kg) SpO2 98% BMI 26.31 kg/(m^2). BP w/Orthostatic Vitals Date and Time Orthostatic BP Orthostatic Pulse BP Pulse BP Position BP Site BP Cuff Size 11/23/24 0851 -- -- 162/84 82 Sitting Right Arm Large Adult Peak Flow Date and Time PF Resp 11/23/24 0851 -- 12 Last 2 Encounter Wt Readings: Date: Wt: 11/23/2024 168 lb (76.2 kg) 11/22/2024 168 lb 10.4 oz (76.5 kg) Physical Exam Constitutional: General: She is not in acute distress. Appearance: She is not diaphoretic. HENT: Head: Normocephalic and atraumatic. Right Ear: External ear normal. Left Ear: External ear normal. Nose: Nose normal. Mouth/Throat: Pharynx: Oropharynx is clear. Eyes: General: Right eye: No discharge. Left eye: No discharge. Conjunctiva/sclera: Conjunctivae normal. Pupils: Pupils are equal, round, and reactive to light. Cardiovascular: Rate and Rhythm: Normal rate and regular rhythm. Heart sounds: Normal heart sounds, S1 normal and S2 normal. No murmur heard. No friction rub. No gallop. No S3 or S4 sounds. Pulmonary: Effort: Pulmonary effort is normal. No respiratory distress. Breath sounds: Normal breath sounds. No wheezing or rales. Chest: Chest wall: No tenderness. Abdominal: General: Abdomen is flat. Musculoskeletal: General: Normal range of motion. Cervical back: Normal range of motion and neck supple. Skin: General: Skin is warm and dry. Neurological: Mental Status: She is alert and oriented to person, place, and time. Psychiatric: Mood and Affect: Mood normal. Thought Content: Thought content normal. Pertinent Labs: CBC: Hemoglobin (g/dL) Date Value 10/23/2024 11.7 10/12/2021 11.3 Hematocrit (%) Date Value 10/23/2024 38.6 10/12/2021 36.4 WBC (k/uL) Date Value 10/23/2024 8.12 10/12/2021 9.00 Platelet Count (k/uL) Date Value 10/23/2024 334 10/12/2021 212 BMP: Glucose (mg/dL) Date Value 10/23/2024 104 08/22/2021 140 Potassium (mmol/L) Date Value 10/23/2024 4.9 08/22/2021 5.0 Sodium (mmol/L) Date Value 10/23/2024 143 08/22/2021 137 Chloride (mmol/L) Date Value 10/23/2024 108 08/22/2021 102 CO2 (mmol/L) Date Value 10/23/2024 21 08/22/2021 26 Creatinine (mg/dL) Date Value 10/23/2024 1.15 08/25/2021 0.69 BUN (mg/dL) Date Value 10/23/2024 24 08/22/2021 16 Anion Gap (mmol/L) Date Value 10/23/2024 14 08/22/2021 9 Calcium (mg/dL) Date Value 08/22/2021 9.0 Calcium, Total (mg/dL) Date Value 10/23/2024 9.9 INR: Lipid Profile: Total Cholesterol, Nonfasting Date Value Ref Range Status 10/23/2024 158 <200 mg/dL Final Comment: <200 mg/dL, Desirable 200-239 mg/dL, Borderline high >239 mg/dL, High HDL Cholesterol, Nonfasting Date Value Ref Range Status 10/23/2024 49 >39 mg/dL Final Comment: 40-59 mg/dL, Acceptable >59 mg/dL, High: Negative risk factor for coronary heart disease <40 mg/dL, Low: Positive risk factor for coronary heart disease LDL Cholesterol, Nonfasting Date Value Ref Range Status 10/23/2024 90 <100 mg/dL Final Comment: <100 mg/dL, Optimal 100-129 mg/dL, Near optimal/above optimal 130-159 mg/dL, Borderline high 160-189 mg/dL, High >189 mg/dL, Very high Secondary prevention optimal LDL Cholesterol levels are recommended to be < 70 mg/dL Triglycerides, Nonfasting Date Value Ref Range Status 10/23/2024 97 <150 mg/dL Final Comment: <150 mg/dL, Normal 150-199 mg/dL, Borderline high 200-499 mg/dL, High >499 mg/dL, Very high Hemoglobin A1C: No results found for: HGBA1C TSH: No results found for: TSHREFL Prior Cardiac Testing None Assessment and Plan: 79 years old female patient prior history of hypertensive heart disease and 1+ tricuspid regurgitation ASSESSMENT/PLAN: 1. Primary hypertension - ICD9: 401.9, ICD10: I10 (primary diagnosis) - Controlled - Continue current medications - Recommend home blood pressure monitoring, to bring results to next visit - Encouraged sodium restriction, DASH or Mediterranean diet - Recommend regular aerobic exercise 2. Valvular heart disease - ICD9: 424.90, ICD10: I38 Review of the echocardiography shows trace mitral regurgitation and 1+ TR no significant valvular heart disease Patient will follow-up with the family doctor No further intervention or testing required from the cardiology service Francisco Brooks MD Follow up planning: PRN Electronically signed by Francisco Brooks MD on November 23, 2024, 9:11 AM The above note was partially created using a dictation recognition software. A reasonable attempt has been made to correct any errors. documented in this encounter [facility] 11-22-2024 Note HNO ID: [id number] Author: RAUL ANNE PA-C Service: ? Author Type: Physician Ethylene Plant Operator Type: Progress Notes Filed: 11/22/2024 12:51 Note Text: This note was created using GoFishriter. Subjective Cheryl Marrero is a 79 year old female. Patient is an 79-year-old female complains of worsening congestion, sinus pressure, facial pain, ear pain and headache that she has been experiencing for the past 2 to 3 weeks. Patient reports no fever, chills or myalgia. Patient describes throat irritation that she states is secondary to significant postnasal drainage. Patient was seen and evaluated by primary care physician last month and diagnosed with a sinus infection. Patient reports that she was placed on antibiotic which resolved her symptoms very nicely, however she again developed the same symptoms approximately 2 weeks ago. Patient reports that her facial pain and pressure is very significant both underneath and above her eyes. Sore Throat Associated symptoms include congestion, ear pain and headaches. Review of Systems HENT: Positive for congestion, ear pain, postnasal drip, sinus pressure, sinus pain and sore throat. Neurological: Positive for headaches. All other systems reviewed and are negative. Objective BP 130/84 Pulse 86 Temp 36.3 ?C (97.3 ?F) Resp 16 Wt 76.5 kg (168 lb 10.4 oz) SpO2 97% BMI 26.41 kg/m? Physical Exam Vitals and nursing note reviewed. Constitutional: Appearance: Normal appearance. She is normal weight. HENT: Head: Normocephalic and atraumatic. Right Ear: Tympanic membrane, ear canal and external ear normal. Left Ear: Tympanic membrane, ear canal and external ear normal. Nose: Congestion present. Mouth/Throat: Mouth: Mucous membranes are moist. Pharynx: Oropharynx is clear. Posterior oropharyngeal erythema present. Eyes: Extraocular Movements: Extraocular movements intact. Conjunctiva/sclera: Conjunctivae normal. Pupils: Pupils are equal, round, and reactive to light. Cardiovascular: Rate and Rhythm: Normal rate and regular rhythm. Pulses: Normal pulses. Heart sounds: Normal heart sounds. Pulmonary: Effort: Pulmonary effort is normal. Breath sounds: Normal breath sounds. Musculoskeletal: Cervical back: Normal range of motion and neck supple. Skin: General: Skin is warm and dry. Capillary Refill: Capillary refill takes less than 2 seconds. Neurological: General: No focal deficit present. Mental Status: She is alert and oriented to person, place, and time. Psychiatric: Mood and Affect: Mood normal. Behavior: Behavior normal. Thought Content: Thought content normal. Judgment: Judgment normal. Assessment and Plan Physical exam findings as noted above. Patient was provided with prescriptions for doxycycline 100 mg and prednisone 10 mg. Supportive care instructions were discussed and the patient was advised that if her symptoms do not improve or if her symptoms recur she will need to be seen by her primary care physician as at that time she may require further evaluation with possible CT scan imaging that is not available at this [facility] care facility. Patient verbalizes clear understanding of the above instructions. CLINICAL IMPRESSION: Acute Sinusitis--Recurrent ASSESSMENT/PLAN: 1. Acute recurrent sinusitis, unspecified location - ICD9: 461.9, ICD10: J01.91 - PREDNISONE 10 MG TABLET - DOXYCYCLINE HYCLATE 100 MG TABLET MDM Risk of Complications, Morbidity, and/or Mortality Presenting problems: low Diagnostic procedures: low Management options: angelina Anne PA-C [facility] 11-22-2024 History of Present illness Narrative This note was created using GoFishriter. Subjective Cheryl Marrero is a 79 year old female. Patient is an 79-year-old female complains of worsening congestion, sinus pressure, facial pain, ear pain and headache that she has been experiencing for the past 2 to 3 weeks. Patient reports no fever, chills or myalgia. Patient describes throat irritation that she states is secondary to significant postnasal drainage. Patient was seen and evaluated by primary care physician last month and diagnosed with a sinus infection. Patient reports that she was placed on antibiotic which resolved her symptoms very nicely, however she again developed the same symptoms approximately 2 weeks ago. Patient reports that her facial pain and pressure is very significant both underneath and above her eyes. Sore Throat Associated symptoms include congestion, ear pain and headaches. Review of Systems HENT: Positive for congestion, ear pain, postnasal drip, sinus pressure, sinus pain and sore throat. Neurological: Positive for headaches. All other systems reviewed and are negative. Objective BP 130/84 Pulse 86 Temp 36.3 C (97.3 F) Resp 16 Wt 76.5 kg (168 lb 10.4 oz) SpO2 97% BMI 26.41 kg/m Physical Exam Vitals and nursing note reviewed. Constitutional: Appearance: Normal appearance. She is normal weight. HENT: Head: Normocephalic and atraumatic. Right Ear: Tympanic membrane, ear canal and external ear normal. Left Ear: Tympanic membrane, ear canal and external ear normal. Nose: Congestion present. Mouth/Throat: Mouth: Mucous membranes are moist. Pharynx: Oropharynx is clear. Posterior oropharyngeal erythema present. Eyes: Extraocular Movements: Extraocular movements intact. Conjunctiva/sclera: Conjunctivae normal. Pupils: Pupils are equal, round, and reactive to light. Cardiovascular: Rate and Rhythm: Normal rate and regular rhythm. Pulses: Normal pulses. Heart sounds: Normal heart sounds. Pulmonary: Effort: Pulmonary effort is normal. Breath sounds: Normal breath sounds. Musculoskeletal: Cervical back: Normal range of motion and neck supple. Skin: General: Skin is warm and dry. Capillary Refill: Capillary refill takes less than 2 seconds. Neurological: General: No focal deficit present. Mental Status: She is alert and oriented to person, place, and time. Psychiatric: Mood and Affect: Mood normal. Behavior: Behavior normal. Thought Content: Thought content normal. Judgment: Judgment normal. Assessment and Plan Physical exam findings as noted above. Patient was provided with prescriptions for doxycycline 100 mg and prednisone 10 mg. Supportive care instructions were discussed and the patient was advised that if her symptoms do not improve or if her symptoms recur she will need to be seen by her primary care physician as at that time she may require further evaluation with possible CT scan imaging that is not available at this express care facility. Patient verbalizes clear understanding of the above instructions. CLINICAL IMPRESSION: Acute Sinusitis--Recurrent ASSESSMENT/PLAN: 1. Acute recurrent sinusitis, unspecified location - ICD9: 461.9, ICD10: J01.91 - PREDNISONE 10 MG TABLET - DOXYCYCLINE HYCLATE 100 MG TABLET MDM Risk of Complications, Morbidity, and/or Mortality Presenting problems: low Diagnostic procedures: low Management options: angelina Anne PA-C documented in this encounter [facility] 11-16-2024 Note HNO ID: [id number] Author: KELL STILL MA Service: ? Author Type: Display Fabrication Supervisor Type: Progress Notes Filed: 11/16/2024 09:18 Note Text: POPULATION HEALTH NAVIGATION OUTREACH Action/FYI UPDATED APPT NOTE [facility] CLSOURE Topic Due (Y or N) Comments Medicare Wellness Y PCP Follow up Colorectal Cancer Screening Controlling Blood Pressure Y A1C HCC Flu Vaccine Care Everywhere Reviewed MyChart Activation Updated Appointment Note Y Reason for Outreach Care Gap/HCC or Scheduling Wellness Visits Care Gaps due: Medicare Annual Wellness Visit Controlling Blood Pressure Patient Contacted: Unable or unnecessary to reach patient: HCC related Patient already scheduled Updated appointment notes Navigation Signature: Kell Still MA November 16, 2024 9:16 AM [facility] 11-16-2024 History of Present illness Narrative POPULATION HEALTH NAVIGATION OUTREACH Action/FYI UPDATED APPT NOTE [facility] CLSOURE Topic Due (Y or N) Comments Medicare Wellness Y PCP Follow up Colorectal Cancer Screening Controlling Blood Pressure Y A1C HCC Flu Vaccine Care Everywhere Reviewed MyChart Activation Updated Appointment Note Y Reason for Outreach Care Gap/HCC or Scheduling Wellness Visits Care Gaps due: Medicare Annual Wellness Visit Controlling Blood Pressure Patient Contacted: Unable or unnecessary to reach patient: HCC related Patient already scheduled Updated appointment notes Navigation Signature: Kell Still MA November 16, 2024 9:16 AM documented in this encounter [facility] 11-16-2024 Note Patient Outreach (NE TNAV) ---- CHERYL MARRERO ([id number]) 1945 F Date Time Provider Department 11/16/24 KELL STILL NETKEVINV During your visit today, we recorded the following information about you: Kell Still MA 11/16/2024 9:18 AM Signed POPULATION HEALTH NAVIGATION OUTREACH Action/FYI UPDATED APPT NOTE [facility] CLSOURE Topic Due (Y or N) Comments Medicare Wellness Y PCP Follow up Colorectal Cancer Screening Controlling Blood Pressure Y A1C HCC Flu Vaccine Care Everywhere Reviewed MyChart Activation Updated Appointment Note Y Reason for Outreach Care Gap/HCC or Scheduling Wellness Visits Care Gaps due: Medicare Annual Wellness Visit Controlling Blood Pressure Patient Contacted: Unable or unnecessary to reach patient: HCC related Patient already scheduled Updated appointment notes Navigation Signature: Kell Still MA November 16, 2024 9:16 AM Allergies As of Date: 11/16/2024 Noted Allergy Reaction PHENERGAN (PROMETHAZINE HCL) 12/16/2009 1 - Mental Status Change 5 - Intolerance [id number] REDUCTASE INHIBIT*05/14/2014 14 - Other: See Comments Comments: Elevated liver enzymes in hospital, statins stopped. ADHESIVE 08/02/2011 2 - Rash BREO ELLIPTA (FLUTICASONE FUROATE*04/18/2021 14 - Other: See Comments Comments: Hoarseness/ Shortness of breath PENICILLINS 06/18/2005 14 - Other: See Comments Comments: Local reaction at site of injection ROXICODONE (OXYCODONE) 08/16/2021 5 - Intolerance Comments: Severe nausea and lightheadness SULFA (SULFONAMIDE ANTIBIOTICS) 06/18/2005 VANCOMYCIN 10/05/2021 14 - Other: See Comments Comments: redness Date Reviewed: 10/23/2024 Reviewed by: Bibi Scott MA - Fully Assessed Reason for Visit: Population Health Navigation Outreach [3910] Cmt: ACO GAGE MURRELL PCSA Prescriptions as of 11/16/2024 - methocarbamol (ROBAXIN) 500 mg tablet Take 1 tablet by mouth three times a day as needed. - diclofenac (VOLTAREN) 1 % topical gel Apply 2 g to affected area two times a day as needed. - buPROPion XL (WELLBUTRIN XL) 150 mg 24 hr tablet Take 1 tablet by mouth once daily. - folic acid 1 mg tablet Take 1 tablet by mouth once daily. - lansoprazole (PREVACID) 30 mg capsule Take 1 capsule by mouth once daily. - metoprolol succinate ER (TOPROL XL) 25 mg 24 hr tablet Take 1 tablet by mouth two times a day. - rosuvastatin (CRESTOR) 5 mg tablet Take 1 tablet by mouth daily at bedtime. - albuterol HFA (PROAIR HFA) 90 mcg/actuation inhaler Inhale 2 Puffs as instructed every 6 hours as needed. - meclizine (ANTIVERT) 25 mg tab Take 25 mg by mouth three times daily as needed. From [facility] - clindamycin (CLEOCIN) 300 mg capsule Take 2 capsules by mouth one hour prior to dental cleaning/procedure - ascorbic acid (VITAMIN C ORAL) Take 1 tablet by mouth once daily. 1000mg - polyethylene glycol 3350 (MIRALAX ORAL) Take 1 Tablespoonful by mouth as needed. - acetaminophen (TYLENOL) 500 mg tablet Take 2 tablets by mouth every 8 hours as needed. - fluticasone (FLONASE) 50 mcg/actuation nasal spray Use 1 [place] in each nostril once daily. - vitamin B complex (B COMPLEX 1 ORAL) Take 1 tablet by mouth once daily. - cholecalciferol (VITAMIN D3) 1,000 unit tab tablet Take 1,000 Units by mouth once daily. Problem List As Of Date 11/16/2024 Noted Resolved Anxiety state, unspecified [F41.1] 06/13/2017 INT HEMORRHOID W/O COMPL [K64.8] DIVERTICULOSIS OF COLON W/O BLEED [K57.30] Hemorrhage of gastrointestinal tract, unspecifi* 12/11/2016 Hyperlipidemia [E78.5] ADJUSTMENT DISORDER WITH DEPRESSED MOOD [F43.21]01/03/2006 URGE INCONTINENCE [N39.41] 07/05/2006 Diarrhea [R19.7] 09/09/2008 12/11/2016 Breast density [R92.30] 01/25/2010 12/11/2016 GERD (gastroesophageal reflux disease) [K21.9] 07/18/2010 Plantar fasciitis, bilateral [M72.2] 08/06/2012 12/11/2016 RAVIN (obstructive sleep apnea) [G47.33] 05/09/2013 08/16/2021 Urinary frequency [R35.0] 08/04/2013 Irritable bowel syndrome with diarrhea [K58.0] 08/09/2015 Mild persistent asthma without complication [J4*08/09/2015 IPMN (intraductal papillary mucinous neoplasm) *08/09/2015 Primary osteoarthritis of left knee [M17.12] 08/09/2015 08/16/2021 DDD (degenerative disc disease), lumbar [M51.36*06/13/2017 BPPV (benign paroxysmal positional vertigo), un*06/26/2017 Obesity, Class I, BMI 30-34.9 [E66.811] 01/13/2018 08/16/2021 Asthma [J45.909] 08/16/2021 Seasonal allergies [J30.2] Obstructive sleep apnea [G47.33] Lung nodules [R91.8] 04/04/2023 Non-rheumatic mitral regurgitation [I34.0] 03/09/2019 Chronic pain of right upper extremity [M79.601,*01/08/2020 Chronic pain of left knee [M25.562, G89.29] 06/27/2020 Chronic bilateral low back pain [M54.50, G89.29]06/27/2020 Mild pulmonary hypertension (HCC) [I27.20] 12/12/2020 S/P total knee arthroplasty, left [Z96.652] 0 (more content not included)... [facility] 10-27-2024 Telephone encounter Note Spoke with patient and scheduled. Miranda Anand [facility] 10-27-2024 Miscellaneous Notes Spoke with patient and scheduled. Miranda Anand Schedulers she had an order placed for cardiology after her visit today. Can you please contact to help her set up with cardiology? Thank you! He can order online at [facility] and there would not need a prescription. It is called a TENs unit. Transcutaneous electrical nerve stimulation. Sorry about that. I also did place a consult for Dr. Brooks and asked the nurse to have schedulers call with an appt. No samayoa. patient was in today and was seen by Erica. Patient states that it was discussed about a device that she could get OTC to help stimulate hip area and patient thought it was going to be on her AVS but she can not locate it. patient is asking provider to please sent her the information via [employer], and what it was that she needed and RX for. please review and send message. documented in this encounter [facility] 10-26-2024 Progress note Formatting of t his note might be different from the original. Your kidney function has improved slightly but remain a little weak. Remember to drink 64 ounces of water daily to flush your kidneys. Blood sugars have remained stable. Hemoglobin A1c 6.0. Cholesterol levels are normal. B12 level was normal. Magnesium level was normal. Blood counts look good. Vitamin D level is therapeutic. No changes are needed. [facility] 10-26-2024 Miscellaneous Notes Your kidney function has improved slightly but remain a little weak. Remember to drink 64 ounces of water daily to flush your kidneys. Blood sugars have remained stable. Hemoglobin A1c 6.0. Cholesterol levels are normal. B12 level was normal. Magnesium level was normal. Blood counts look good. Vitamin D level is therapeutic. No changes are needed. documented in this encounter [facility] 10-23-2024 Telephone encounter Note Schedulers she had an order placed for cardiology after her visit today. Can you please contact to help her set up with cardiology? Thank you! [facility] 10-23-2024 Telephone encounter Note He can order online at [employer] and there would not need a prescription. It is called a TENs unit. Transcutaneous electrical nerve stimulation. Sorry about that. I also did place a consult for Dr. Brooks and asked the nurse to have schedulers call with an appt. No samayoa. [facility] 10-23-2024 Telephone encounter Note patient was in today and was seen by Erica. Patient states that it was discussed about a device that she could get OTC to help stimulate hip area and patient thought it was going to be on her AVS but she can not locate it. patient is asking provider to please sent her the information via [employer], and what it was that she needed and RX for. please review and send message. [facility] 10-23-2024 Note Addended by: AFIA SCHAFER on: 10/23/2024 10:14 AM Modules accepted: Orders [facility] 10-23-2024 Miscellaneous Notes Addended by: AFIA SCHAFER on: 10/23/2024 10:14 AM Modules accepted: Orders documented in this encounter [facility] 02-28-2025 Instructions Afia Schafer APRN.CNP - 10/23/2024 9:42 AM EST 1) Doxycycline 100 mg 2 x day for 10 days 2) Methocarbamol 500 mg 3 x day as needed for back pain 3) Follow up in 6 months documented in this encounter [facility] 10-23-2024 Note HNO ID: [id number] Author: AFIA SCHAFER APRN.CNP Service: ? Author Type: Nurse Practitioner Type: Progress Notes Filed: 10/23/2024 10:14 Note Text: This is a 79 year old female who presents today with: Patient presents with: 6 Month Exam Back Pain Knee Pain HISTORY OF PRESENT ILLNESS: Cheryl Marrero is a 79 year old female. Patient presents with: 6 Month Exam Back Pain Knee Pain Sore throat, nasal congestion, ears bothering her. Concerned about memory Knee bothers her- never fully recovered since surgery Discussed protein, fruits and vegetables, and sleep Saw specialist and had back injections that didn't help Thought it may be muscular PAST MEDICAL HISTORY: PAST MEDICAL HISTORY Diagnosis Date Adjustment disorder with depressed mood Anxiety state, unspecified Arthritis Asthma Coronary artery disease Diverticulosis of colon (without mention of hemorrhage) Hemorrhage of gastrointestinal tract, unspecified Iron deficiency anemia 06/29/2021 Localized osteoarthrosis not specified whether primary or secondary, lower leg Lung nodules Myalgia Obstructive sleep apnea Other and unspecified hyperlipidemia Seasonal allergies Shingles 01/2017 Urge urinary incontinence PAST SURGICAL HISTORY Procedure Laterality Date ABDOMINAL SURGERY HX BREAST CYST PUNCTURE/BC BX OF BREAST; INCISIONAL Left 08/04/2024 CHOLECYSTECTOMY 04/09/2000 lap choley COLONOSCOPY - DIAGNOSTIC 11/01/2000 COLONOSCOPY FLX DX W/COLLJ SPEC WHEN PFRMD 09/09/2008 Colonoscopy COLONOSCOPY FLX DX W/COLLJ SPEC WHEN PFRMD 07/01/2014 Colonoscopy COLONOSCOPY FLX DX W/COLLJ SPEC WHEN PFRMD 11/05/2019 Colonoscopy COLONOSCOPY FLX DX W/COLLJ SPEC WHEN PFRMD 06/13/2021 ECHOCARDIOGRAM 04/24/2021 echo: LV small, LV SF WNL, EF 65%, grade 1 LVDD. All wall motion score normal. RV size and RV SF WNL, RVSP 38 mmHg consistent with mild pulmonary hypertension. LA and RA normal in size, inferior vena cava normal. MV: 0-1+ MVR, TV normal, 0-1+ TR, AV normal, PV not seen, 0-1+ FL. Mid a sending aorta 3.2 cm. Echocardiogram pulmonary arteries not interrogated, no pericardial effusion ESOPHAGOGASTRODUODENOSCOPY TRANSORAL DIAGNOSTIC 11/05/2019 EGD ESOPHAGOGASTRODUODENOSCOPY TRANSORAL DIAGNOSTIC 06/13/2021 EXCIS BREAST LESION Left 07/07/2024 US guided core bx Lt breast EYE SURGERY HX HEMORRHOIDECTOMY INTERNAL RUBBER BAND LIGATIONS 11/05/2019 PICC LINE INSERT/CONSULT 08/24/2021 SKIN BIOPSY HX TONSILLECTOMY HX TONSILLECTOMY PRIMARY/SECONDARY TOTAL KNEE REPLACEMENT ALLERGIES Phenergan [Promethazine Hcl], Ilognqf-Qef-Ufu Reductase Inhibitors, Adhesive, Breo Ellipta [Fluticasone Furoate-Vilanterol], Penicillins, Roxicodone [Oxycodone], Sulfa (Sulfonamide Antibiotics), and Vancomycin MEDICATIONS Current Outpatient Medications Medication Sig tiZANidine (ZANAFLEX) 2 mg tablet Take 1 tablet by mouth every 8 hours as needed. diclofenac (VOLTAREN) 1 % topical gel Apply 2 g to affected area two times a day as needed. buPROPion XL (WELLBUTRIN XL) 150 mg 24 hr tablet Take 1 tablet by mouth once daily. folic acid 1 mg tablet Take 1 tablet by mouth once daily. lansoprazole (PREVACID) 30 mg capsule Take 1 capsule by mouth once daily. metoprolol succinate ER (TOPROL XL) 25 mg 24 hr tablet Take 1 tablet by mouth two times a day. rosuvastatin (CRESTOR) 5 mg tablet Take 1 tablet by mouth daily at bedtime. albuterol HFA (PROAIR HFA) 90 mcg/actuation inhaler Inhale 2 Puffs as instructed every 6 hours as needed. meclizine (ANTIVERT) 25 mg tab Take 25 mg by mouth three times daily as needed. From [facility] clindamycin (CLEOCIN) 300 mg capsule Take 2 capsules by mouth one hour prior to dental cleaning/procedure ascorbic acid (VITAMIN C ORAL) Take 1 tablet by mouth once daily. 1000mg CPAP polyethylene glycol 3350 (MIRALAX ORAL) Take 1 Tablespoonful by mouth as needed. acetaminophen (TYLENOL) 500 mg tablet Take 2 tablets by mouth every 8 hours as needed. fluticasone (FLONASE) 50 mcg/actuation nasal spray Use 1 [place] in each nostril once daily. vitamin B complex (B COMPLEX 1 ORAL) Take 1 tablet by mouth once daily. cholecalciferol (VITAMIN D3) 1,000 unit tab tablet Take 1,000 Units by mouth once daily. No current facility-administered medications for this visit. FAMILY HISTORY Problem Relation Age of Onset Ischemic Heart Disease Father PASSED FROM [place] Diabetes Father Ischemic Heart Disease Mother PASSED FROM [place] Coronary Artery Disease Brother stent Diabetes Sister Cancer Maternal Grandfather lung Cancer Paternal Grandfather lung Social History Tobacco Use Smoking status: Never Smokeless tobacco: Never Tobacco comments: Lived with smokers in childhood home and until 2002. Vaping Use Vaping status: Never Used Substance Use Topics Alcohol use: No Drug use: No REVIEW OF SYSTEMS GENERAL: No weight loss, + malaise or (more content not included)... [facility] 10-23-2024 History of Present illness Narrative This is a 79 year old female who presents today with: Patient presents with: 6 Month Exam Back Pain Knee Pain HISTORY OF PRESENT ILLNESS: Cheryl Marrero is a 79 year old female. Patient presents with: 6 Month Exam Back Pain Knee Pain Sore throat, nasal congestion, ears bothering her. Concerned about memory Knee bothers her- never fully recovered since surgery Discussed protein, fruits and vegetables, and sleep Saw specialist and had back injections that didn't help Thought it may be muscular PAST MEDICAL HISTORY: PAST MEDICAL HISTORY Diagnosis Date Adjustment disorder with depressed mood Anxiety state, unspecified Arthritis Asthma Coronary artery disease Diverticulosis of colon (without mention of hemorrhage) Hemorrhage of gastrointestinal tract, unspecified Iron deficiency anemia 06/29/2021 Localized osteoarthrosis not specified whether primary or secondary, lower leg Lung nodules Myalgia Obstructive sleep apnea Other and unspecified hyperlipidemia Seasonal allergies Shingles 01/2017 Urge urinary incontinence PAST SURGICAL HISTORY Procedure Laterality Date ABDOMINAL SURGERY HX BREAST CYST PUNCTURE/BC BX OF BREAST; INCISIONAL Left 08/04/2024 CHOLECYSTECTOMY 04/09/2000 lap choley COLONOSCOPY - DIAGNOSTIC 11/01/2000 COLONOSCOPY FLX DX W/COLLJ SPEC WHEN PFRMD 09/09/2008 Colonoscopy COLONOSCOPY FLX DX W/COLLJ SPEC WHEN PFRMD 07/01/2014 Colonoscopy COLONOSCOPY FLX DX W/COLLJ SPEC WHEN PFRMD 11/05/2019 Colonoscopy COLONOSCOPY FLX DX W/COLLJ SPEC WHEN PFRMD 06/13/2021 ECHOCARDIOGRAM 04/24/2021 echo: LV small, LV SF WNL, EF 65%, grade 1 LVDD. All wall motion score normal. RV size and RV SF WNL, RVSP 38 mmHg consistent with mild pulmonary hypertension. LA and RA normal in size, inferior vena cava normal. MV: 0-1+ MVR, TV normal, 0-1+ TR, AV normal, PV not seen, 0-1+ FL. Mid a sending aorta 3.2 cm. Echocardiogram pulmonary arteries not interrogated, no pericardial effusion ESOPHAGOGASTRODUODENOSCOPY TRANSORAL DIAGNOSTIC 11/05/2019 EGD ESOPHAGOGASTRODUODENOSCOPY TRANSORAL DIAGNOSTIC 06/13/2021 EXCIS BREAST LESION Left 07/07/2024 US guided core bx Lt breast EYE SURGERY HX HEMORRHOIDECTOMY INTERNAL RUBBER BAND LIGATIONS 11/05/2019 PICC LINE INSERT/CONSULT 08/24/2021 SKIN BIOPSY HX TONSILLECTOMY HX TONSILLECTOMY PRIMARY/SECONDARY <AGE 12 TOTAL KNEE REPLACEMENT ALLERGIES Phenergan [Promethazine Hcl], Cettmwt-Zsz-Ekm Reductase Inhibitors, Adhesive, Breo Ellipta [Fluticasone Furoate-Vilanterol], Penicillins, Roxicodone [Oxycodone], Sulfa (Sulfonamide Antibiotics), and Vancomycin MEDICATIONS Current Outpatient Medications Medication Sig tiZANidine (ZANAFLEX) 2 mg tablet Take 1 tablet by mouth every 8 hours as needed. diclofenac (VOLTAREN) 1 % topical gel Apply 2 g to affected area two times a day as needed. buPROPion XL (WELLBUTRIN XL) 150 mg 24 hr tablet Take 1 tablet by mouth once daily. folic acid 1 mg tablet Take 1 tablet by mouth once daily. lansoprazole (PREVACID) 30 mg capsule Take 1 capsule by mouth once daily. metoprolol succinate ER (TOPROL XL) 25 mg 24 hr tablet Take 1 tablet by mouth two times a day. rosuvastatin (CRESTOR) 5 mg tablet Take 1 tablet by mouth daily at bedtime. albuterol HFA (PROAIR HFA) 90 mcg/actuation inhaler Inhale 2 Puffs as instructed every 6 hours as needed. meclizine (ANTIVERT) 25 mg tab Take 25 mg by mouth three times daily as needed. From [facility] clindamycin (CLEOCIN) 300 mg capsule Take 2 capsules by mouth one hour prior to dental cleaning/procedure ascorbic acid (VITAMIN C ORAL) Take 1 tablet by mouth once daily. 1000mg CPAP polyethylene glycol 3350 (MIRALAX ORAL) Take 1 Tablespoonful by mouth as needed. acetaminophen (TYLENOL) 500 mg tablet Take 2 tablets by mouth every 8 hours as needed. fluticasone (FLONASE) 50 mcg/actuation nasal spray Use 1 [place] in each nostril once daily. vitamin B complex (B COMPLEX 1 ORAL) Take 1 tablet by mouth once daily. cholecalciferol (VITAMIN D3) 1,000 unit tab tablet Take 1,000 Units by mouth once daily. No current facility-administered medications for this visit. FAMILY HISTORY Problem Relation Age of Onset Ischemic Heart Disease Father P[place]ED FROM [place] Diabetes Father Ischemic Heart Disease Mother PASSED FROM [place] Coronary Artery Disease Brother stent Diabetes Sister Cancer Maternal Grandfather lung Cancer Paternal Grandfather lung Social History Tobacco Use Smoking status: Never Smokeless tobacco: Never Tobacco comments: Lived with smokers in childhood home and until 2002. Vaping Use Vaping status: Never Used Substance Use Topics Alcohol use: No Drug use: No REVIEW OF SYSTEMS GENERAL: No weight loss, + malaise or fevers/chills HEENT: Always for frequent or significant headaches- uses sinus pills, Some changes in hearing, no vision. NECK: Negative for lumps, goiter, pain and significant neck swelling RESPIRATORY: Negative for cough, hemoptysis, wheezing, always dyspnea or shortness of breath CARDIOVASCULAR: Negative for chest pain, leg swelling, orthopnea, or palpitations GI: No nausea, no vomiting, both diarrhea/constipation. No hematochezia/melena. No heartburn or reflux symptoms- takes prevacid. : No history of dysuria, + frequency, + incontinence MUSCULOSKELETAL: Left knee, low back joint pain or swelling. Has spacer in left knee SKIN: Negative for lesions, rash, and itching ENDOCRINE: Negative for cold or heat intolerance, polyuria, polydipsia and goiter NEURO: No history of headaches, syncope, paralysis, seizures or tremors MOOD: + depression, anxiety, or suicidal ideation. EXAM: BP 132/76 Pulse 70 Temp 36.1 C (97 F) (Left Tympanic) Wt 74.4 kg (164 lb) SpO2 97% BMI 25.69 kg/m PHYSICAL EXAM: Physical Exam Vitals reviewed. Constitutional: Appearance: Normal appearance. HENT: Head: Normocephalic. Right Ear: Ear canal and external ear normal. There is impacted cerumen. Left Ear: Ear canal and external ear normal. There is no impacted cerumen. Ears: Comments: TM opaque Nose: Congestion and rhinorrhea present. Comments: Right nare eroded with purulent Mouth/Throat: Pharynx: No oropharyngeal exudate or posterior oropharyngeal erythema. Cardiovascular: Rate and Rhythm: Normal rate and regular rhythm. Pulses: Normal pulses. Heart sounds: Normal heart sounds. Pulmonary: Effort: Pulmonary effort is normal. Breath sounds: Normal breath sounds. Abdominal: General: Bowel sounds are normal. Palpations: Abdomen is soft. Tenderness: There is no abdominal tenderness. There is no guarding or rebound. Musculoskeletal: Right lower leg: No edema. Left lower leg: No edema. Comments: Left knee pain- spacer in- walks w/o assistive device Skin: General: Skin is warm and dry. Neurological: Mental Status: She is alert and oriented to person, place, and time. LABS: Check labs ASSESSMENT/PLAN: 1. Pure hypercholesterolemia - ICD9: 272.0, ICD10: E78.00 (primary diagnosis) Check labs - LIPID PANEL, NONFASTING 2. Non-rheumatic mitral regurgitation - ICD9: 424.0, ICD10: I34.0 ongoing - VITAMIN B12 3. Mild pulmonary hypertension (HCC) - ICD9: 416.8, ICD10: I27.20 Stable - COMPLETE BLOOD COUNT AND DIFFERENTIAL 4. Mild persistent asthma without complication - ICD9: 493.90, ICD10: J45.30 - Mild intermittent asthma stable - Continue current medications - Avoidance of triggers recommended - COMPLETE BLOOD COUNT AND DIFFERENTIAL - VITAMIN B12 5. Obstructive sleep apnea - ICD9: 327.23, ICD10: G47.33 Does not wear CPAP - COMPLETE BLOOD COUNT AND DIFFERENTIAL - VITAMIN B12 6. Gastroesophageal reflux disease without esophagitis - ICD9: 530.81, ICD10: K21.9 - Stable 7. Stage 3b chronic kidney disease (HCC) - ICD9: 585.3, ICD10: N18.32 - eGFR: 37 Worsening - Counseled on avoiding NSAIDs, adequate hydration - COMPREHENSIVE METABOLIC PANEL - MAGNESIUM - VITAMIN B12 8. Failure of total knee replacement, sequela - ICD9: 909.3, ICD10: T84.018S, Z96.659 Check labs - VITAMIN B12 9. Chronic bilateral low back pain without sciatica - ICD9: 724.2, 338.29, ICD10: M54.50, G89.29 Methocarbamol 3 x day as needed 10. Screening for diabetes mellitus - ICD9: V77.1, ICD10: Z13.1 Check labs - HEMOGLOBIN A1C 11. Vitamin D deficiency - ICD9: 268.9, ICD10: E55.9 Check labs - VITAMIN D 25 HYDROXY 12. Chronic midline low back pain with sciatica, sciatica laterality unspecified - ICD9: 724.2, 724.3, 338.29, ICD10: M54.40, G89.29 Sciatica - Muscle relaxant- see orders - METHOCARBAMOL 500 MG TABLET 13. Acute maxillary sinusitis, recurrence not specified - ICD9: 461.0, ICD10: J01.00 - Will begin treatment with Doxycycline - DOXYCYCLINE HYCLATE 100 MG TABLE 14. Valvular heart disease - ICD9: 424.90, ICD10: I38 No longer wanting to go to [facility] - CONSULT TO CARDIOLOGY Discussed treatment plan and patient voices understanding. Patient's questions answered appropriately. Medications and potential side effects were discussed and patient voices understanding. Return to the office as scheduled or as needed for worsening/no improvement. Afia Schafer APRN.CNP documented in this encounter [facility] 08-27-2024 Note HNO ID: [id number] Author: SALMA MEDINA PA-C Service: ? Author Type: Physician [employer] Operator Type: Progress Notes Filed: 08/27/2024 12:53 Note Text: Salma Medina PA-C [facility] [address] [address] Dear Matthias Dias MD, Cheryl Evon Marrero is a pleasant 79 year old individual who comes in to the office on 08/27/2024 for follow-up regarding the Lumbar spine. Patient is here alone today. Subjective: Compared to the last visit, symptoms have been improved. Ms. Marrero has some pain in middle and lower back but no more pain in hip area afer injection. Has noticed a lot of functional improvement from day to day. Doing more with less pain ROS: Since last visit-patient DENIES fevers, chills, night sweats, unexpected weight loss or gain, abdominal pain, progressive weakness, paralysis, loss of bowel/bladder control, saddle numbness, stumbling gait, loss of coordination. Current Outpatient Medications Medication Sig Dispense Refill tiZANidine (ZANAFLEX) 2 mg tablet Take 1 tablet by mouth every 8 hours as needed. 30 tablet 0 diclofenac (VOLTAREN) 1 % topical gel Apply 2 g to affected area two times a day as needed. 200 g 0 buPROPion XL (WELLBUTRIN XL) 150 mg 24 hr tablet Take 1 tablet by mouth once daily. 90 tablet 3 folic acid 1 mg tablet Take 1 tablet by mouth once daily. 90 tablet 3 lansoprazole (PREVACID) 30 mg capsule Take 1 capsule by mouth once daily. 90 capsule 3 metoprolol succinate ER (TOPROL XL) 25 mg 24 hr tablet Take 1 tablet by mouth two times a day. 180 tablet 3 rosuvastatin (CRESTOR) 5 mg tablet Take 1 tablet by mouth daily at bedtime. 90 tablet 3 ondansetron orally disintegrating (ZOFRAN ODT) 8 mg disintegrating tablet Take 1 tablet by mouth every 8 hours as needed for nausea/vomiting. 30 tablet 5 albuterol HFA (PROAIR HFA) 90 mcg/actuation inhaler Inhale 2 Puffs as instructed every 6 hours as needed. 18 g 11 meclizine (ANTIVERT) 25 mg tab Take 25 mg by mouth three times daily as needed. From [facility] clindamycin (CLEOCIN) 300 mg capsule Take 2 capsules by mouth one hour prior to dental cleaning/procedure 2 capsule 1 ascorbic acid (VITAMIN C ORAL) Take 1 tablet by mouth once daily. 1000mg CPAP polyethylene glycol 3350 (MIRALAX ORAL) Take 1 Tablespoonful by mouth as needed. acetaminophen (TYLENOL) 500 mg tablet Take 2 tablets by mouth every 8 hours as needed. fluticasone (FLONASE) 50 mcg/actuation nasal spray Use 1 [place] in each nostril once daily. vitamin B complex (B COMPLEX 1 ORAL) Take 1 tablet by mouth once daily. cholecalciferol (VITAMIN D3) 1,000 unit tab tablet Take 1,000 Units by mouth once daily. No current facility-administered medications for this visit. Exam: Blood pressure 140/80, pulse 65, resp. rate 16, weight 73 kg (160 lb 15 oz), SpO2 98%. Body mass index is 25.21 kg/m?. Station and Gait: flexed posture and antalgic gait leaning forward Range of Motion: Has diminished balance so we did not fully assess range of motion today Motor: No focal LE weakness today however she does describe intermittent LEFT leg giving out about once a week or so. She has had a knee replacement on that side and has been trying to strengthen up her quadriceps ever since. She went to [facility] ED following a recent fall where she bruised both knees and she had x-rays reportedly done at that time. Sensory: Normal BLE sensory Pain on Palpation: Mild pain on palpation over central lumbosacral junction as well as bilateral PSIS Imaging: The following study/studies were reviewed with the patient during the visit: No new studies were completed but we did review her lumbar MRI study and plain radiographs. She has L4-5 spondylolisthesis with moderate stenosis at L3-4 disc bulge with moderately severe stenosis. Her L4-5 spondylolisthesis does not appear to be significantly mobile through flexion and extension Assessment/Plan: Encounter Diagnosis ICD-10-CM 1. Spinal stenosis of lumbar region with neurogenic claudication M48.062 2. Radiculopathy, lumbar region M54.16 RTC: on an as-needed basis (PRN) Other/Discussion: She will return on an as-needed basis. She may need repeat injection in the future and she understands to expect some baseline low back pain as result of the degenerative findings that we discussed on her x-rays and MRI. She will also continue to strengthen her LLE quadriceps and this will hopefully diminish her likelihood of falling occasionally. Time spent: 23 minutes today with this patient visit. This includes iksr-dy-[id number] time, review of chart records regarding conservative care history, spine-pertinent imaging, and communication/care coordination with referring provider, problem-specific history-taking and counseling/education regarding treatment options. This document has been created with the use of vo (more content not included)... [facility] 08-27-2024 History of Present illness Narrative Salma Medina PA-C [facility] [address] [place] [address] Dear Matthias Dias MD, Cheryl Marrero is a pleasant 79 year old individual who comes in to the office on 08/27/2024 for follow-up regarding the Lumbar spine. Patient is here alone today. Subjective: Compared to the last visit, symptoms have been improved. Ms. Marrero has some pain in middle and lower back but no more pain in hip area afer injection. Has noticed a lot of functional improvement from day to day. Doing more with less pain ROS: Since last visit-patient DENIES fevers, chills, night sweats, unexpected weight loss or gain, abdominal pain, progressive weakness, paralysis, loss of bowel/bladder control, saddle numbness, stumbling gait, loss of coordination. Current Outpatient Medications Medication Sig Dispense Refill tiZANidine (ZANAFLEX) 2 mg tablet Take 1 tablet by mouth every 8 hours as needed. 30 tablet 0 diclofenac (VOLTAREN) 1 % topical gel Apply 2 g to affected area two times a day as needed. 200 g 0 buPROPion XL (WELLBUTRIN XL) 150 mg 24 hr tablet Take 1 tablet by mouth once daily. 90 tablet 3 folic acid 1 mg tablet Take 1 tablet by mouth once daily. 90 tablet 3 lansoprazole (PREVACID) 30 mg capsule Take 1 capsule by mouth once daily. 90 capsule 3 metoprolol succinate ER (TOPROL XL) 25 mg 24 hr tablet Take 1 tablet by mouth two times a day. 180 tablet 3 rosuvastatin (CRESTOR) 5 mg tablet Take 1 tablet by mouth daily at bedtime. 90 tablet 3 ondansetron orally disintegrating (ZOFRAN ODT) 8 mg disintegrating tablet Take 1 tablet by mouth every 8 hours as needed for nausea/vomiting. 30 tablet 5 albuterol HFA (PROAIR HFA) 90 mcg/actuation inhaler Inhale 2 Puffs as instructed every 6 hours as needed. 18 g 11 meclizine (ANTIVERT) 25 mg tab Take 25 mg by mouth three times daily as needed. From [facility] clindamycin (CLEOCIN) 300 mg capsule Take 2 capsules by mouth one hour prior to dental cleaning/procedure 2 capsule 1 ascorbic acid (VITAMIN C ORAL) Take 1 tablet by mouth once daily. 1000mg CPAP polyethylene glycol 3350 (MIRALAX ORAL) Take 1 Tablespoonful by mouth as needed. acetaminophen (TYLENOL) 500 mg tablet Take 2 tablets by mouth every 8 hours as needed. fluticasone (FLONASE) 50 mcg/actuation nasal spray Use 1 [place] in each nostril once daily. vitamin B complex (B COMPLEX 1 ORAL) Take 1 tablet by mouth once daily. cholecalciferol (VITAMIN D3) 1,000 unit tab tablet Take 1,000 Units by mouth once daily. No current facility-administered medications for this visit. Exam: Blood pressure 140/80, pulse 65, resp. rate 16, weight 73 kg (160 lb 15 oz), SpO2 98%. Body mass index is 25.21 kg/m . Station and Gait: flexed posture and antalgic gait leaning forward Range of Motion: Has diminished balance so we did not fully assess range of motion today Motor: No focal LE weakness today however she does describe intermittent LEFT leg giving out about once a week or so. She has had a knee replacement on that side and has been trying to strengthen up her quadriceps ever since. She went to [facility] ED following a recent fall where she bruised both knees and she had x-rays reportedly done at that time. Sensory: Normal BLE sensory Pain on Palpation: Mild pain on palpation over central lumbosacral junction as well as bilateral PSIS Imaging: The following study/studies were reviewed with the patient during the visit: No new studies were completed but we did review her lumbar MRI study and plain radiographs. She has L4-5 spondylolisthesis with moderate stenosis at L3-4 disc bulge with moderately severe stenosis. Her L4-5 spondylolisthesis does not appear to be significantly mobile through flexion and extension Assessment/Plan: Encounter Diagnosis ICD-10-CM 1. Spinal stenosis of lumbar region with neurogenic claudication M48.062 2. Radiculopathy, lumbar region M54.16 RTC: on an as-needed basis (PRN) Other/Discussion: She will return on an as-needed basis. She may need repeat injection in the future and she understands to expect some baseline low back pain as result of the degenerative findings that we discussed on her x-rays and MRI. She will also continue to strengthen her LLE quadriceps and this will hopefully diminish her likelihood of falling occasionally. Time spent: 23 minutes today with this patient visit. This includes huea-[id number]-[id number] time, review of chart records regarding conservative care history, spine-pertinent imaging, and communication/care coordination with referring provider, problem-specific history-taking and counseling/education regarding treatment options. This document has been created with the use of voice recognition technology. It may contain inaccuracies: (e.g. misspellings, inaccurate syntax or word sense) that have escaped review. Hailee Campbell MA documented in this encounter [facility] 08-12-2024 Note HNO ID: [id number] Author: DILSHAD GARCIA, DO Service: ? Author Type: Physician Type: Progress Notes Filed: 08/19/2024 15:11 Note Text: GENERAL SURGERY POST OP FOLLOW UP Patient seen and examined in the clinic for post-operative evaluation following left breast lumpectomy with intra-operative ultrasound guided wire placement on 08/04/2024. Patient states that she has been doing well since surgery. Denies breast pain. Denies nausea, vomiting, diarrhea, constipation. No fevers or chills. Appetite is good. 10 point review of systems completed and is otherwise negative On exam: There were no vitals filed for this visit. Gen: NAD, well-nourished Lungs: unlabored breathing, bilateral chest rise LEFT BREAST: The breast skin and nipple areolar complexes appear normal without retraction or lesions. The periareolar incision is healing well. The nipple is well perfused and healthy. There is no nipple discharge.There is no other dominant mass or clinical abnormality noted in left breast. RIGHT BREAST: The breast skin and nipple areolar complexes appear normal without retraction or lesions. There is no nipple discharge. There is no dominant mass or clinical abnormality noted in right breast. LEFT REGIONAL LYMPH NODES: There is no concerning supraclavicular, infraclavicular or axillary lymphadenopathy RIGHT REGIONAL LYMPH NODES: There is no concerning supraclavicular, infraclavicular or axillary lymphadenopathy The sensitive examination was discussed with the Patient or Patient's Authorized Polyethylene Combiner. As applicable, any other physician, advance practice provider, medical student, or other health professional student that will be observing or involved in the sensitive examination for educational or training purposes was discussed with the Patient or Authorized Polyethylene Combiner. The Patient or Authorized Polyethylene Combiner has agreed to proceed with the sensitive examination. (Sensitive examination includes inspection and/or palpation of the breasts, pelvis, prostate and anorectal regions) Pathology: Component FINAL DIAGNOSIS A. Left breast, lumpectomy: - Multiple intraductal papillomas. - 1 biopsy clip and prior biopsy site identified. There is an ill-defined, white, rubbery biopsy site with Q clip identified within slices 4-5, measuring 0.6 x 0.5 x 0.4 cm. The biopsy site is situated 0.1 cm from the inferior margin, 0.7 cm from the superior margin, 1 cm from the anterior margin, 1.9 cm from the medial margin, and greater than 2 cm from all remaining margins. The surrounding breast tissue is composed of soft, yellow adipose tissue (85%) and white fibrous tissue. There are no other discrete masses or lesions. Assessment ASSESSMENT Subareolar mass of left breast (primary encounter diagnosis) Intraductal papilloma of left breast S/p lumpectomy, left breast RECOMMENDATION -Surveillance mammogram with tomosynthesis in 6 months -Follow-up in office after imaging completed to review results Dilshad Garcia DO August 12, 2024 1:45 PM [facility] 08-12-2024 History of Present illness Narrative Images from the original note were not included. GENERAL SURGERY POST OP FOLLOW UP Patient seen and examined in the clinic for post-operative evaluation following left breast lumpectomy with intra-operative ultrasound guided wire placement on 08/04/2024. Patient states that she has been doing well since surgery. Denies breast pain. Denies nausea, vomiting, diarrhea, constipation. No fevers or chills. Appetite is good. 10 point review of systems completed and is otherwise negative On exam: There were no vitals filed for this visit. Gen: NAD, well-nourished Lungs: unlabored breathing, bilateral chest rise LEFT BREAST: The breast skin and nipple areolar complexes appear normal without retraction or lesions. The periareolar incision is healing well. The nipple is well perfused and healthy. There is no nipple discharge.There is no other dominant mass or clinical abnormality noted in left breast. RIGHT BREAST: The breast skin and nipple areolar complexes appear normal without retraction or lesions. There is no nipple discharge. There is no dominant mass or clinical abnormality noted in right breast. LEFT REGIONAL LYMPH NODES: There is no concerning supraclavicular, infraclavicular or axillary lymphadenopathy RIGHT REGIONAL LYMPH NODES: There is no concerning supraclavicular, infraclavicular or axillary lymphadenopathy The sensitive examination was discussed with the Patient or Patient's Authorized Polyethylene Combiner. As applicable, any other physician, advance practice provider, medical student, or other health professional student that will be observing or involved in the sensitive examination for educational or training purposes was discussed with the Patient or Authorized Polyethylene Combiner. The Patient or Authorized Polyethylene Combiner has agreed to proceed with the sensitive examination. (Sensitive examination includes inspection and/or palpation of the breasts, pelvis, prostate and anorectal regions) Pathology: Component FINAL DIAGNOSIS A. Left breast, lumpectomy: - Multiple intraductal papillomas. - 1 biopsy clip and prior biopsy site identified. There is an ill-defined, white, rubbery biopsy site with Q clip identified within slices 4-5, measuring 0.6 x 0.5 x 0.4 cm. The biopsy site is situated 0.1 cm from the inferior margin, 0.7 cm from the superior margin, 1 cm from the anterior margin, 1.9 cm from the medial margin, and greater than 2 cm from all remaining margins. The surrounding breast tissue is composed of soft, yellow adipose tissue (85%) and white fibrous tissue. There are no other discrete masses or lesions. Assessment ASSESSMENT Subareolar mass of left breast (primary encounter diagnosis) Intraductal papilloma of left breast S/p lumpectomy, left breast RECOMMENDATION -Surveillance mammogram with tomosynthesis in 6 months -Follow-up in office after imaging completed to review results Dilshad Garcia DO August 12, 2024 1:45 PM documented in this encounter [facility] 08-04-2024 Note HNO ID: [id number] Author: TESS GARRIDO APRN.PIPEFITTER Service: Anesthesiology Author Type: Nurse Beef Splitter Type: Anesthesia Procedure Notes Filed: 08/04/2024 07:49 Note Text: ANESTHESIOLOGY PROCEDURE NOTE Airway General Information Procedure Start Time/Medication Administration: 08/04/2024 7:38 AM Procedure End Time: 08/04/2024 7:38 AM Patient location during procedure: OR Timeout Performed Pre-procedure: timeout performed Consent Obtained: Yes Patient identity confirmed: arm band and patient Staffing Performed by: JONO Indications and Patient Condition Indications for airway management: anesthesia Preoxygenated: yes anesthesia circuit Patient position: sniffing Method: asleep Final Airway Details Final airway type: supraglottic airway Number of attempts at approach: 1 Final Supraglottic Airway: i-gel Size 4 Seal Adequate: yes SIGNATURE: Tess Garrido APRN.CRNA PATIENT NAME: Cheryl Marrero DATE: August 04, 2024 TIME: 7:49 AM CSN: [id number] [facility] 07-31-2024 Instructions Wilfrido Apodaca APRN.ROOF BOLTER OPERATOR - 07/31/2024 3:22 PM EST Images from the original note were not included. [facility] PATIENT PREOPERATIVE INSTRUCTIONS Dilshad Garcia DO has scheduled you for your procedure at this surgery center: [facility]: [phone] -- [address] [address]. Please read below carefully for your personalized instructions. Dietary Restrictions: - No solid food after midnight. - You may have 12 ounces of clear liquids (water, clear juices such as apple juice or gatorade, carbonated beverages, clear tea, black coffee, jello) until 2 hours before scheduled arrival at facility. Medications: Unless instructed differently below, stay on all of your medications until your surgery. If you start any new medications after today's visit, please contact your surgeon. Pre-Surgery Med Instructions Medication Instructions tiZANidine (ZANAFLEX) 2 mg tablet IF needed diclofenac (VOLTAREN) 1 % topical gel Do not take the day of surgery buPROPion XL (WELLBUTRIN XL) 150 mg 24 hr tablet Take the day of surgery with a small sip of water folic acid 1 mg tablet Stop 7 days before surgery lansoprazole (PREVACID) 30 mg capsule Take the day of surgery with a small sip of water metoprolol succinate ER (TOPROL XL) 25 mg 24 hr tablet Take the day of surgery with a small sip of water rosuvastatin (CRESTOR) 5 mg tablet Take the day of surgery with a small sip of water ondansetron orally disintegrating (ZOFRAN ODT) 8 mg disintegrating tablet IF needed albuterol HFA (PROAIR HFA) 90 mcg/actuation inhaler IF needed meclizine (ANTIVERT) 25 mg tab IF needed clindamycin (CLEOCIN) 300 mg capsule Do not take the day of surgery ascorbic acid (VITAMIN C ORAL) Stop 7 days before surgery CPAP polyethylene glycol 3350 (MIRALAX ORAL) Do not take the day of surgery acetaminophen (TYLENOL) 500 mg tablet IF needed fluticasone (FLONASE) 50 mcg/actuation nasal spray IF needed2 vitamin B complex (B COMPLEX 1 ORAL) Stop 7 days before surgery cholecalciferol (VITAMIN D3) 1,000 unit tab tablet Stop 7 days before surgery If you start any new medications after today's visit, please contact the surgeon's office. If you are currently using a [id number]-fwkn injectable or oral medication for diabetes or weight loss such as Dulaglutide (Trulicity), Exenatide (Byetta, Bydureon), Liraglutide (Victoza, Saxenda), Semaglutide (Ozempic, Wegovy, Rybelsus), or Tirzepatide (Mounjaro), the medicine should be stopped at least 7 days before surgery. These medicines can cause food to remain in your stomach for a very long time and increase the risks from surgery and anesthesia. Not stopping the medication for a long enough time may result in your surgery being rescheduled. Blood Thinning Medications: - Stop NSAIDS (Ibuprofen, Advil, Aleve, Motrin, Celebrex, Mobic, etc.) 7 days before surgery, as directed by your surgeon. - Stop Aspirin 7 days before surgery, as directed by your surgeon. - Stop ALL herbal and dietary supplements 7 days before surgery. - You may take Tylenol (Acetaminophen) or any of your pain medications that do not contain aspirin or NSAIDS as needed. Important Reminders: - Candy, mints, and tobacco products are NOT permitted the morning of surgery. - Hearing aids, dentures and glasses may be worn the morning of surgery. - NO jewelry, body piercings, makeup, hairpins or contacts are to be worn the day of surgery. If you develop symptoms such as a fever, cold, or flu, or have other changes to your health within TWO DAYS of scheduled surgery or the morning of surgery, please contact the surgery center above. Personal Belongings: -Please have photo ID and insurance cards. -If you do not have a copy of advance directives on file with us, please bring a copy with you on the day of surgery. - Leave ALL valuables and money at home or with family members. For Outpatient Procedures: - YOU MUST HAVE A RESPONSIBLE FIRE SUPPRESSION CAPTAIN TAKE YOU HOME. A REPRODUCTION SPECIALIST OR WELL LOGGING OPERATOR MUD ANALYSIS CANNOT BE MADE A RESPONSIBLE FIRE SUPPRESSION CAPTAIN. - We recommend that a responsible person stays with you overnight to take care of you. - You cannot stay in a hotel alone after outpatient surgery. You will not be permitted to have your surgery, if you do not have someone to take care of you. Arrival Time for Surgery: - The Surgery Center or hospital where you are having surgery will call the afternoon before surgery (or Saturday for Saturday surgery) with a scheduled arrival time. - If you have not heard by 4 pm, please contact the surgery center above. Please be aware that emergency situations arise, which may delay or change your surgical time. If this happens, we will notify you as soon as possible and regret any inconvenience. If you already have an Advance Directive, please fax a copy to [phone] or email to for it to be added to your chart. If you do not have an Advance Directive, you can find the appropriate form and more information at [email or web address]. We recommend that you complete the Advance Directive form found on the website and bring it with you the day of your surgery. It can be witnessed and scanned into your chart that day. Wilfrido S Paulie, WATER MECHANIC.ROOF BOLTER OPERATOR documented in this encounter [facility] 07-31-2024 History and physical note Images from the original note were not included. 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 Measurements - Mid ascending aorta 3.1 cm. Hyperlipidemia Assessment: c/w statin Mild pulmonary hypertension (HCC) Assessment: hx mild pHTN 2020 echo but last echo 2022 shows normal RSVP, following with pulmonary Non-rheumatic mitral regurgitation Assessment: trace, EF 63% 02/2023 echo Mild persistent asthma without complication Assessment: Using PRN Albuterol inhaler Obstructive sleep apnea Assessment: Currently compliant with CPAP. SOB (shortness of breath) Assessment: Chronic and unchanged per patient. SOB also due to limited mobility/joint pain per patient. Negative stress test in 2019, negative chest CTA 03/2021. Most likely multi-factorial per pulmonology. BPPV (benign paroxysmal positional vertigo), unspecified laterality Assessment: rx as needed GERD (gastroesophageal reflux disease) Assessment: Symptoms currently stable on Rx. Anxiety and depression Assessment: stable on rx per pt S/P total knee arthroplasty, left Assessment: c/b infection, spacer in place, following [facility] ortho 12/10/2023 Dr. Calderon Updated Imaging: Well-appearing spacer with potentially some signs of loosening Assessment and Plan: I numbness discussion with Cheryl about her left knee today. Her spacer is functioning well for spacer, but is not as stable as a regular knee replacement. She has substantial spine difficulty, and she has numbness and tingling all the way to her foot. She should see a spine provider before making a decision about revision arthroplasty. In the interim we should get ESR, CRP, and an aspiration of the knee to make sure there is no residual infection. We discussed that surgery for the knee would be to place a more constraining, total stabilized knee replacement. This would likely improve some of her pain symptoms and give her more stability. It is unpredictable the exact extent of improvement she would have, and it is possible she would always have some residual pain from multiple knee operations. She will get the above workup and then follow-up in about 2 months. I have also given her a knee brace today to help with the stability. Chronic bilateral low back pain Assessment: following pain management, receiving injections Jade Activity Status Index: METS: Climb a flight of stairs or walk up a hill (5.50 METs) DASI Score: 5.5 Patient denies any chest pain or undue shortness of breath with the above physical activity. Clinical Frailty Scale: 3. Well, with treated comorbid disease STOP-Bang Score: Denies snoring loudly Denies feeling tired, fatigued, or sleepy during the daytime Has not been observed to stop breathing or choking/gasping during sleep Denies having high blood pressure BMI less than or equal to 35 kg/m^2 Patient 50 years old or younger Does not have a large neck Non-male patient STOP-Bang Score: 0 [id number] Score: Age: >=75 Sex: female CHF history: No Hypertension history: Yes Stroke/TIA/thromboembolism history: No Vascular disease history: No Diabetes history: No [id number] Score: 4 ARISCAT Score: Age: 51-80 Preoperative SpO2: >=96% Respiratory infection in the last month: No Preoperative anemia: No Surgical incision: peripheral Duration of surgery: 2-3 hrs Emergency procedure: No ARISCAT Score: 19 ANESTHESIA FINDINGS: Intubation History: No history of difficult intubation Significant Anesthesia Considerations: none Airway History: No history of difficult airway I - PHYSICAL EVALUATION AIRWAY Patient intubated: No. Tracheostomy tube not present Mallampati: III. TM distance: >3 FB. Neck ROM: full ROM without neurological symptoms. Mouth opening: adequate. Short neck: no. Thick neck: no Gaspar present: no Lip Bite Test: I Microretrognathia/Micronagthia/Recesse d Chin: No DENTAL Dental findings: teeth intact. II - ANESTHESIA PLAN Anesthetic Plan: other Beta Domi Monitoring Plan Post Procedure Analgesic Plan Prepared for Surgery: optimally prepared for surgery. Labs and EKG-reviewed, okay to proceed-JL CONSULTS: Patient does not require consults for optimization at this time Planned Anesthetic: other anesthesia choice The Following Tests/Procedures Have Been Initiated: Orders Placed This Encounter >CBC + AUTO DIFF Standing Status: Future Number of Occurrences: 1 Standing Expiration Date: 10/30/2024 >CMP Standing Status: Future Number of Occurrences: 1 Standing Expiration Date: 10/30/2024 ECG COMPLETE Standing Status: Future Standing Expiration Date: 07/31/2025 ECG COMPLETE Order Comments: Ordered by an unspecified provider REASON FOR VISIT: Cheryl Marrero is a 79 year old female who is scheduled for Procedure(s): LUMPECTOMY BREAST (Left) at the request of Dr. Dilshad Garcia for consultation. My final recommendation will be communicated back to the requesting physician by way of shared medical record or letter. Subjective The patient has the following: COVID-19 Immunization Status Overdue - Covid-19 Vaccine (2023- season) Overdue since 04/26/2024 10/21/2023 Imm Admin: COVID-19 vaccine, age 12+ yr, 2022- season (P[employer]ER-BIONTECH) 04/12/2022 Imm Admin: COVID-19 original vaccine, age 12+ yr, monovalent ([employer]ION[employer] - CHILDS TOP) 08/30/2021 Imm Admin: COVID-19 original vaccine, full dose, monovalent (MODERNA) Only the first 3 history entries have been loaded, but more history exists. CHIEF COMPLAINT: Pre-op exam HPI: Cheryl Marrero is a 79 year old seen for PAC due to scheduled above surgery because of intraductal 07/29/2024, Dr. Dilshad Garcia Patient seen and examined in the clinic to review pathology results following left breast core needle biopsy on 07/07/2024. She initially presented to general surgery clinic on 06/24/2024 with non-bloody nipple discharge from the left breast. This was sporadic in nature. Denied pain or history of trauma to the left breast/nipple areolar complex. ULTRASOUND FINDINGS: Ultrasound demonstrates an oval hypoechoic lesion measuring 0.5 x 0.5 x 0.4 cm in the anterior depth region of the left breast at 9 o'clock. No internal vascularity. Differential diagnosis includes a papillary lesion. Lesion appears intraductal in location. This may account for the nonbloody nipple discharge. A bedside US was performed, however it was difficult to isolate the mass in the setting of dense breast tissue and benign calcifications, so she was referred to radiology for image guided biopsy. Pathology: Intraductal papilloma REVIEW OF SYSTEMS: General: No weight loss, malaise or fevers. Neurological: No history of TIA's, stroke, HAMMER HEATER tumor, impaired sensorium, hemiplegia, paraplegia or quadraplegia. No neurological symptoms or problems. Respiratory: Positive for: asthma (rx as needed), obstructive sleep apnea and CPAP/BiPAP noncompliant. Negative for: COPD, current cough, dyspnea, pneumonia within 6 weeks, tobacco use and URI < 2 weeks. Cardiovascular: Positive for: hyperlipidemia (on rx), hypertension (on rx) and murmur/valvular heart disease Negative for: abdominal aortic aneurysm, AICD/PPM, angina, anticoagulation therapy, arrhythmia, atrial fibrillation, CAD, chest pain, CHF, congenital heart defect, DVT/PE, recent [place], PTCA, PVD, open heart surgery and valve surgery. GI: Positive for: dysphagia (intermittently) and GERD (on rx) Negative for: abdominal pain, esophageal stricture, hepatitis, irritable bowel syndrome, inflammatory bowel disease, liver disease, nausea, pancreatitis, vomiting and ETOH >2 drinks/day. : No history of dysuria, frequency or incontinence, stones or chronic kidney disease. No difficulty urinating, nocturia > 1 time per night or hematuria. 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 Negative for: vaginal bleeding and vaginal discharge. Endocrine: No history of diabetes. Has not taken steroids within the past 30 days. No history of endocrinological symptoms or problems. Hematology: No history of bleeding or clotting disorder. Patient is not taking anti-coagulation or platelet medications. No history of hematological symptoms or problems. Oncology: No history of CA metastasis, chemo within 30 days, or radiotherapy within 90 days. No history of oncological symptoms or problems. Psych: Positive for: anxiety and depression. Negative for: Marijuana Use. Musculoskeletal: +left knee replacement with infection, removed and spacer in place, following [facility] Positive for: back pain (receiving injections) and joint pain. Skin: Negative for lesions, rash and itching. Implanted Devices: No implanted devices. PAST MEDICAL HISTORY Diagnosis Date Adjustment disorder with depressed mood Anxiety state, unspecified Arthritis Asthma Coronary artery disease Diverticulosis of colon (without mention of hemorrhage) Hemorrhage of gastrointestinal tract, unspecified Iron deficiency anemia 06/29/2021 Localized osteoarthrosis not specified whether primary or secondary, lower leg Lung nodules Myalgia Obstructive sleep apnea Other and unspecified hyperlipidemia Seasonal allergies Shingles 01/2017 Urge urinary incontinence PAST SURGICAL HISTORY Procedure Laterality Date ABDOMINAL SURGERY HX BREAST CYST PUNCTURE/BC CHOLECYSTECTOMY 04/09/2000 lap choley COLONOSCOPY - DIAGNOSTIC 11/01/2000 COLONOSCOPY FLX DX W/COLLJ SPEC WHEN PFRMD 09/09/2008 Colonoscopy COLONOSCOPY FLX DX W/COLLJ SPEC WHEN PFRMD 07/01/2014 Colonoscopy COLONOSCOPY FLX DX W/COLLJ SPEC WHEN PFRMD 11/05/2019 Colonoscopy COLONOSCOPY FLX DX W/COLLJ SPEC WHEN PFRMD 06/13/2021 ECHOCARDIOGRAM 04/24/2021 echo: LV small, LV SF WNL, EF 65%, grade 1 LVDD. All wall motion score normal. RV size and RV SF WNL, RVSP 38 mmHg consistent with mild pulmonary hypertension. LA and RA normal in size, inferior vena cava normal. MV: 0-1+ MVR, TV normal, 0-1+ TR, AV normal, PV not seen, 0-1+ FL. Mid a sending aorta 3.2 cm. Echocardiogram pulmonary arteries not interrogated, no pericardial effusion ESOPHAGOGASTRODUODENOSCOPY TRANSORAL DIAGNOSTIC 11/05/2019 EGD ESOPHAGOGASTRODUODENOSCOPY TRANSORAL DIAGNOSTIC 06/13/2021 EXCIS BREAST LESION Left 07/07/2024 US guided core bx Lt breast EYE SURGERY HX HEMORRHOIDECTOMY INTERNAL RUBBER BAND LIGATIONS 11/05/2019 PICC LINE INSERT/CONSULT 08/24/2021 SKIN BIOPSY HX TONSILLECTOMY HX TONSILLECTOMY PRIMARY/SECONDARY TOTAL KNEE REPLACEMENT FAMILY HISTORY Problem Relation Age of Onset Ischemic Heart Disease Father PASSED FROM [place] Diabetes Father Ischemic Heart Disease Mother PASSED FROM [place] Coronary Artery Disease Brother stent Diabetes Sister Cancer Maternal Grandfather lung Cancer Paternal Grandfather lung Social History Tobacco Use Smoking status: Never Smokeless tobacco: Never Tobacco comments: Lived with smokers in childhood home and until 2002. Vaping Use Vaping status: Never Used Substance Use Topics Alcohol use: No Drug use: No Prior to Admission medications as of 08/03/24 1018 Medication Sig Last Dose Taking tiZANidine (ZANAFLEX) 2 mg tablet Take 1 tablet by mouth every 8 hours as needed. Taking Yes diclofenac (VOLTAREN) 1 % topical gel Apply 2 g to affected area two times a day as needed. Taking Yes buPROPion XL (WELLBUTRIN XL) 150 mg 24 hr tablet Take 1 tablet by mouth once daily. Taking Yes folic acid 1 mg tablet Take 1 tablet by mouth once daily. Taking Yes lansoprazole (PREVACID) 30 mg capsule Take 1 capsule by mouth once daily. Taking Yes metoprolol succinate ER (TOPROL XL) 25 mg 24 hr tablet Take 1 tablet by mouth two times a day. Taking Yes rosuvastatin (CRESTOR) 5 mg tablet Take 1 tablet by mouth daily at bedtime. Taking Yes ondansetron orally disintegrating (ZOFRAN ODT) 8 mg disintegrating tablet Take 1 tablet by mouth every 8 hours as needed for nausea/vomiting. Taking Yes albuterol HFA (PROAIR HFA) 90 mcg/actuation inhaler Inhale 2 Puffs as instructed every 6 hours as needed. Taking Yes meclizine (ANTIVERT) 25 mg tab Take 25 mg by mouth three times daily as needed. From [facility] Taking Yes clindamycin (CLEOCIN) 300 mg capsule Take 2 capsules by mouth one hour prior to dental cleaning/procedure Taking Yes ascorbic acid (VITAMIN C ORAL) Take 1 tablet by mouth once daily. 1000mg Taking Yes CPAP Taking Yes polyethylene glycol 3350 (MIRALAX ORAL) Take 1 Tablespoonful by mouth as needed. Taking Yes acetaminophen (TYLENOL) 500 mg tablet Take 2 tablets by mouth every 8 hours as needed. Taking Yes fluticasone (FLONASE) 50 mcg/actuation nasal spray Use 1 [place] in each nostril once daily. Taking Yes vitamin B complex (B COMPLEX 1 ORAL) Take 1 tablet by mouth once daily. Taking Yes cholecalciferol (VITAMIN D3) 1,000 unit tab tablet Take 1,000 Units by mouth once daily. Taking Yes No medication comments found. ALLERGIES Allergen Reactions Phenergan [Prometha* Mental Status Change, Intolerance Svjruhq-Ysu-Kma Red* Other: See Comments Elevated liver enzymes in hospital, statins stopped. Adhesive Rash Breo Ellipta [Fluti* Other: See Comments Hoarseness/ Shortness of breath Penicillins Other: See Comments Local reaction at site of injection Roxicodone [Oxycodo* Intolerance Severe nausea and lightheadness Sulfa (Sulfonamide * Vancomycin Other: See Comments redness Objective PHYSICAL EXAM: General: alert and oriented (x3) and healthy appearance. Pertinent negatives noted - not distressed. Skin: normal color, no rash or lesions. HEENT: EOM intact and pupils equal round. Pertinent negatives noted - no carotid bruit. Cardiovascular: regular rate and rhythm, normal S1 and S2, no rub, murmurs, or gallop. Respiratory: normal breath sounds, no wheezes or crackles. No chest wall deformity or tenderness. Abdomen: soft. Pertinent negatives noted - not tender. Extremities: no deformity, no edema or tenderness, no joint swelling or clubbing. Neurological: normal cognition and motor skills. Gait normal. No weakness or sensory deficit. PAIN ASSESSMENT: VITALS: BP 130/92 Pulse 66 Temp (Src) 97.7 (Temporal) Resp 14 Ht 5' 6 (1.68m) Wt 165 lb (74.8kg) SpO2 97% BMI 26.64 kg/(m^2). Diagnostic tests reviewed for today's visit: Lab Value Units Date High Low HB 11.3 g/dL 07/31/2024 15.5 11.5 HCT 36.0 % 07/31/2024 46.0 36.0 WBC 7.21 k/uL 07/31/2024 11.00 3.70 PLT 299 k/uL 07/31/2024 400 150 NA 142 mmol/L 07/31/2024 144 136 K 4.2 mmol/L 07/31/2024 5.1 3.7 GLUC 85 mg/dL 07/31/2024 99 74 BUN 23 mg/dL 07/31/2024 21 7 CREAT 1.45 mg/dL 07/31/2024 0.96 0.58 PTSEC No results within date range. INR No results within date range. APTT No results within date range. ALT 10 U/L 07/31/2024 38 7 AST 14 U/L 07/31/2024 35 13 TBILI 0.2 mg/dL 07/31/2024 1.3 0.2 TSH No results within date range. Lab Value Units Date High Low HCGQT No results within date range. UHCG No results within date range. HCG, BODY* No results within date range. Lab Value Units Date High Low ABORHD No results within date range. ABSCREEN No results within date range. Hemoglobin A1C (%) Date Value 08/16/2021 6.2 Recent Results (from the past 8760 hour(s)) ECG COMPLETE Collection Time: 07/31/24 5:08 PM Result Value Ventricular Rate 59 Atrial Rate 59 P-R Interval 128 QRS Duration 84 QT Interval 406 QTC Calculation (Bazett) 401 Calculated P [place] 90 Calculated R [place] -2 Calculated T [place] -9 Impression SINUS BRADYCARDIA WITH PREMATURE ATRIAL COMPLEXES OTHERWISE NORMAL ECG Confirmed by MD RIBEIRO GREGORY () on 08/03/2024 9:16:53 AM Recent Results (from the past 71172 hour(s)) ECHO Collection Time: 03/18/23 2:09 PM Impression CONCLUSIONS: - Exam indication: Routine surveillance of mild valvular regurgitation (>3yrs) - The left ventricle is normal in size. Left ventricular systolic function is normal. EF = 63 5% (2D biplane) Grade I left ventricular diastolic dysfunction. - The right ventricle is normal in size. Right ventricular systolic function is normal. - There are no significant valvular abnormalities. - Exam was compared with the prior echocardiographic exam performed on 04/24/2021, no significant change. * * * Final * * * Instructions Given to Patient: Instructions located in the after visit summary. Patient given verbal and written preop instructions and voices comprehension and compliance. SIGNATURE: Wilfrido Apodaca APRN.CNP PATIENT NAME: Cheryl Marrero DATE: July 31, 2024 TIME: 3:17 PM PAGER/CONTACT #: [facility] 07-31-2024 History and physical note Images from the original note were not included. 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 Measurements - Mid ascending aorta 3.1 cm. Hyperlipidemia Assessment: c/w statin Mild pulmonary hypertension (HCC) Assessment: hx mild pHTN 2020 echo but last echo 2022 shows normal RSVP, following with pulmonary Non-rheumatic mitral regurgitation Assessment: trace, EF 63% 02/2023 echo Mild persistent asthma without complication Assessment: Using PRN Albuterol inhaler Obstructive sleep apnea Assessment: Currently compliant with CPAP. SOB (shortness of breath) Assessment: Chronic and unchanged per patient. SOB also due to limited mobility/joint pain per patient. Negative stress test in 2019, negative chest CTA 03/2021. Most likely multi-factorial per pulmonology. BPPV (benign paroxysmal positional vertigo), unspecified laterality Assessment: rx as needed GERD (gastroesophageal reflux disease) Assessment: Symptoms currently stable on Rx. Anxiety and depression Assessment: stable on rx per pt S/P total knee arthroplasty, left Assessment: c/b infection, spacer in place, following [facility] ortho 12/10/2023 Dr. Calderon Updated Imaging: Well-appearing spacer with potentially some signs of loosening Assessment and Plan: I numbness discussion with Cheryl about her left knee today. Her spacer is functioning well for spacer, but is not as stable as a regular knee replacement. She has substantial spine difficulty, and she has numbness and tingling all the way to her foot. She should see a spine provider before making a decision about revision arthroplasty. In the interim we should get ESR, CRP, and an aspiration of the knee to make sure there is no residual infection. We discussed that surgery for the knee would be to place a more constraining, total stabilized knee replacement. This would likely improve some of her pain symptoms and give her more stability. It is unpredictable the exact extent of improvement she would have, and it is possible she would always have some residual pain from multiple knee operations. She will get the above workup and then follow-up in about 2 months. I have also given her a knee brace today to help with the stability. Chronic bilateral low back pain Assessment: following pain management, receiving injections Jade Activity Status Index: METS: Climb a flight of stairs or walk up a hill (5.50 METs) DASI Score: 5.5 Patient denies any chest pain or undue shortness of breath with the above physical activity. Clinical Frailty Scale: 3. Well, with treated comorbid disease STOP-Bang Score: Denies snoring loudly Denies feeling tired, fatigued, or sleepy during the daytime Has not been observed to stop breathing or choking/gasping during sleep Denies having high blood pressure BMI less than or equal to 35 kg/m^2 Patient 50 years old or younger Does not have a large neck Non-male patient STOP-Bang Score: 0 [id number] Score: Age: >=75 Sex: female CHF history: No Hypertension history: Yes Stroke/TIA/thromboembolism history: No Vascular disease history: No Diabetes history: No [id number] Score: 4 ARISCAT Score: Age: 51-80 Preoperative SpO2: >=96% Respiratory infection in the last month: No Preoperative anemia: No Surgical incision: peripheral Duration of surgery: 2-3 hrs Emergency procedure: No ARISCAT Score: 19 ANESTHESIA FINDINGS: Intubation History: No history of difficult intubation Significant Anesthesia Considerations: none Airway History: No history of difficult airway I - PHYSICAL EVALUATION AIRWAY Patient intubated: No. Tracheostomy tube not present Mallampati: III. TM distance: >3 FB. Neck ROM: full ROM without neurological symptoms. Mouth opening: adequate. Short neck: no. Thick neck: no Gaspar present: no Lip Bite Test: I Microretrognathia/Micronagthia/Recesse d Chin: No DENTAL Dental findings: teeth intact. II - ANESTHESIA PLAN Anesthetic Plan: other Beta Domi Monitoring Plan Post Procedure Analgesic Plan Prepared for Surgery: optimally prepared for surgery. Labs and EKG-reviewed, okay to proceed-JL CONSULTS: Patient does not require consults for optimization at this time Planned Anesthetic: other anesthesia choice The Following Tests/Procedures Have Been Initiated: Orders Placed This Encounter >CBC + AUTO DIFF Standing Status: Future Number of Occurrences: 1 Standing Expiration Date: 10/30/2024 >CMP Standing Status: Future Number of Occurrences: 1 Standing Expiration Date: 10/30/2024 ECG COMPLETE Standing Status: Future Standing Expiration Date: 07/31/2025 ECG COMPLETE Order Comments: Ordered by an unspecified provider REASON FOR VISIT: Cheryl Marrero is a 79 year old female who is scheduled for Procedure(s): LUMPECTOMY BREAST (Left) at the request of Dr. Dilshad Garcia for consultation. My final recommendation will be communicated back to the requesting physician by way of shared medical record or letter. Subjective The patient has the following: COVID-19 Immunization Status Overdue - Covid-19 Vaccine ( season) Overdue since 04/26/2024 10/21/2023 Imm Admin: COVID-19 vaccine, age 12+ yr, 2022- season (PFIZER-BIONTECH) 04/12/2022 Imm Admin: COVID-19 original vaccine, age 12+ yr, monovalent ([employer]-BIONTECH - CHILDS TOP) 08/30/2021 Imm Admin: COVID-19 original vaccine, full dose, monovalent (MODERNA) Only the first 3 history entries have been loaded, but more history exists. CHIEF COMPLAINT: Pre-op exam HPI: Cheryl Marrero is a 79 year old seen for PAC due to scheduled above surgery because of intraductal 07/29/2024, Dr. Dilshad Garcia Patient seen and examined in the clinic to review pathology results following left breast core needle biopsy on 07/07/2024. She initially presented to general surgery clinic on 06/24/2024 with non-bloody nipple discharge from the left breast. This was sporadic in nature. Denied pain or history of trauma to the left breast/nipple areolar complex. ULTRASOUND FINDINGS: Ultrasound demonstrates an oval hypoechoic lesion measuring 0.5 x 0.5 x 0.4 cm in the anterior depth region of the left breast at 9 o'clock. No internal vascularity. Differential diagnosis includes a papillary lesion. Lesion appears intraductal in location. This may account for the nonbloody nipple discharge. A bedside US was performed, however it was difficult to isolate the mass in the setting of dense breast tissue and benign calcifications, so she was referred to radiology for image guided biopsy. Pathology: Intraductal papilloma REVIEW OF SYSTEMS: General: No weight loss, malaise or fevers. Neurological: No history of TIA's, stroke, HAMMER HEATER tumor, impaired sensorium, hemiplegia, paraplegia or quadraplegia. No neurological symptoms or problems. Respiratory: Positive for: asthma (rx as needed), obstructive sleep apnea and CPAP/BiPAP noncompliant. Negative for: COPD, current cough, dyspnea, pneumonia within 6 weeks, tobacco use and URI < 2 weeks. Cardiovascular: Positive for: hyperlipidemia (on rx), hypertension (on rx) and murmur/valvular heart disease Negative for: abdominal aortic aneurysm, AICD/PPM, angina, anticoagulation therapy, arrhythmia, atrial fibrillation, CAD, chest pain, CHF, congenital heart defect, DVT/PE, recent [place], PTCA, PVD, open heart surgery and valve surgery. GI: Positive for: dysphagia (intermittently) and GERD (on rx) Negative for: abdominal pain, esophageal stricture, hepatitis, irritable bowel syndrome, inflammatory bowel disease, liver disease, nausea, pancreatitis, vomiting and ETOH >2 drinks/day. : No history of dysuria, frequency or incontinence, stones or chronic kidney disease. No difficulty urinating, nocturia > 1 time per night or hematuria. 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 Negative for: vaginal bleeding and vaginal discharge. Endocrine: No history of diabetes. Has not taken steroids within the past 30 days. No history of endocrinological symptoms or problems. Hematology: No history of bleeding or clotting disorder. Patient is not taking anti-coagulation or platelet medications. No history of hematological symptoms or problems. Oncology: No history of CA metastasis, chemo within 30 days, or radiotherapy within 90 days. No history of oncological symptoms or problems. Psych: Positive for: anxiety and depression. Negative for: Marijuana Use. Musculoskeletal: +left knee replacement with infection, removed and spacer in place, following [facility] Positive for: back pain (receiving injections) and joint pain. Skin: Negative for lesions, rash and itching. Implanted Devices: No implanted devices. PAST MEDICAL HISTORY Diagnosis Date Adjustment disorder with depressed mood Anxiety state, unspecified Arthritis Asthma Coronary artery disease Diverticulosis of colon (without mention of hemorrhage) Hemorrhage of gastrointestinal tract, unspecified Iron deficiency anemia 06/29/2021 Localized osteoarthrosis not specified whether primary or secondary, lower leg Lung nodules Myalgia Obstructive sleep apnea Other and unspecified hyperlipidemia Seasonal allergies Shingles 01/2017 Urge urinary incontinence PAST SURGICAL HISTORY Procedure Laterality Date ABDOMINAL SURGERY HX BREAST CYST PUNCTURE/BC CHOLECYSTECTOMY 04/09/2000 lap choley COLONOSCOPY - DIAGNOSTIC 11/01/2000 COLONOSCOPY FLX DX W/COLLJ SPEC WHEN PFRMD 09/09/2008 Colonoscopy COLONOSCOPY FLX DX W/COLLJ SPEC WHEN PFRMD 07/01/2014 Colonoscopy COLONOSCOPY FLX DX W/COLLJ SPEC WHEN PFRMD 11/05/2019 Colonoscopy COLONOSCOPY FLX DX W/COLLJ SPEC WHEN PFRMD 06/13/2021 ECHOCARDIOGRAM 04/24/2021 echo: LV small, LV SF WNL, EF 65%, grade 1 LVDD. All wall motion score normal. RV size and RV SF WNL, RVSP 38 mmHg consistent with mild pulmonary hypertension. LA and RA normal in size, inferior vena cava normal. MV: 0-1+ MVR, TV normal, 0-1+ TR, AV normal, PV not seen, 0-1+ FL. Mid a sending aorta 3.2 cm. Echocardiogram pulmonary arteries not interrogated, no pericardial effusion ESOPHAGOGASTRODUODENOSCOPY TRANSORAL DIAGNOSTIC 11/05/2019 EGD ESOPHAGOGASTRODUODENOSCOPY TRANSORAL DIAGNOSTIC 06/13/2021 EXCIS BREAST LESION Left 07/07/2024 US guided core bx Lt breast EYE SURGERY HX HEMORRHOIDECTOMY INTERNAL RUBBER BAND LIGATIONS 11/05/2019 PICC LINE INSERT/CONSULT 08/24/2021 SKIN BIOPSY HX TONSILLECTOMY HX TONSILLECTOMY PRIMARY/SECONDARY <AGE 12 TOTAL KNEE REPLACEMENT FAMILY HISTORY Problem Relation Age of Onset Ischemic Heart Disease Father PASSED FROM [place] Diabetes Father Ischemic Heart Disease Mother PASSED FROM [place] Coronary Artery Disease Brother stent Diabetes Sister Cancer Maternal Grandfather lung Cancer Paternal Grandfather lung Social History Tobacco Use Smoking status: Never Smokeless tobacco: Never Tobacco comments: Lived with smokers in childhood home and until 2002. Vaping Use Vaping status: Never Used Substance Use Topics Alcohol use: No Drug use: No Prior to Admission medications as of 08/03/24 1018 Medication Sig Last Dose Taking tiZANidine (ZANAFLEX) 2 mg tablet Take 1 tablet by mouth every 8 hours as needed. Taking Yes diclofenac (VOLTAREN) 1 % topical gel Apply 2 g to affected area two times a day as needed. Taking Yes buPROPion XL (WELLBUTRIN XL) 150 mg 24 hr tablet Take 1 tablet by mouth once daily. Taking Yes folic acid 1 mg tablet Take 1 tablet by mouth once daily. Taking Yes lansoprazole (PREVACID) 30 mg capsule Take 1 capsule by mouth once daily. Taking Yes metoprolol succinate ER (TOPROL XL) 25 mg 24 hr tablet Take 1 tablet by mouth two times a day. Taking Yes rosuvastatin (CRESTOR) 5 mg tablet Take 1 tablet by mouth daily at bedtime. Taking Yes ondansetron orally disintegrating (ZOFRAN ODT) 8 mg disintegrating tablet Take 1 tablet by mouth every 8 hours as needed for nausea/vomiting. Taking Yes albuterol HFA (PROAIR HFA) 90 mcg/actuation inhaler Inhale 2 Puffs as instructed every 6 hours as needed. Taking Yes meclizine (ANTIVERT) 25 mg tab Take 25 mg by mouth three times daily as needed. From [facility] Taking Yes clindamycin (CLEOCIN) 300 mg capsule Take 2 capsules by mouth one hour prior to dental cleaning/procedure Taking Yes ascorbic acid (VITAMIN C ORAL) Take 1 tablet by mouth once daily. 1000mg Taking Yes CPAP Taking Yes polyethylene glycol 3350 (MIRALAX ORAL) Take 1 Tablespoonful by mouth as needed. Taking Yes acetaminophen (TYLENOL) 500 mg tablet Take 2 tablets by mouth every 8 hours as needed. Taking Yes fluticasone (FLONASE) 50 mcg/actuation nasal spray Use 1 [place] in each nostril once daily. Taking Yes vitamin B complex (B COMPLEX 1 ORAL) Take 1 tablet by mouth once daily. Taking Yes cholecalciferol (VITAMIN D3) 1,000 unit tab tablet Take 1,000 Units by mouth once daily. Taking Yes No medication comments found. ALLERGIES Allergen Reactions Phenergan [Prometha* Mental Status Change, Intolerance Lzwhzzz-Ndm-Dys Red* Other: See Comments Elevated liver enzymes in hospital, statins stopped. Adhesive Rash Breo Ellipta [Fluti* Other: See Comments Hoarseness/ Shortness of breath Penicillins Other: See Comments Local reaction at site of injection Roxicodone [Oxycodo* Intolerance Severe nausea and lightheadness Sulfa (Sulfonamide * Vancomycin Other: See Comments redness Objective PHYSICAL EXAM: General: alert and oriented (x3) and healthy appearance. Pertinent negatives noted - not distressed. Skin: normal color, no rash or lesions. HEENT: EOM intact and pupils equal round. Pertinent negatives noted - no carotid bruit. Cardiovascular: regular rate and rhythm, normal S1 and S2, no rub, murmurs, or gallop. Respiratory: normal breath sounds, no wheezes or crackles. No chest wall deformity or tenderness. Abdomen: soft. Pertinent negatives noted - not tender. Extremities: no deformity, no edema or tenderness, no joint swelling or clubbing. Neurological: normal cognition and motor skills. Gait normal. No weakness or sensory deficit. PAIN ASSESSMENT: VITALS: BP 130/92 Pulse 66 Temp (Src) 97.7 (Temporal) Resp 14 Ht 5' 6 (1.68m) Wt 165 lb (74.8kg) SpO2 97% BMI 26.64 kg/(m^2). Diagnostic tests reviewed for today's visit: Lab Value Units Date High Low HB 11.3 g/dL 07/31/2024 15.5 11.5 HCT 36.0 % 07/31/2024 46.0 36.0 WBC 7.21 k/uL 07/31/2024 11.00 3.70 PLT 299 k/uL 07/31/2024 400 150 NA 142 mmol/L 07/31/2024 144 136 K 4.2 mmol/L 07/31/2024 5.1 3.7 GLUC 85 mg/dL 07/31/2024 99 74 BUN 23 mg/dL 07/31/2024 21 7 CREAT 1.45 mg/dL 07/31/2024 0.96 0.58 PTSEC No results within date range. INR No results within date range. APTT No results within date range. ALT 10 U/L 07/31/2024 38 7 AST 14 U/L 07/31/2024 35 13 TBILI 0.2 mg/dL 07/31/2024 1.3 0.2 TSH No results within date range. Lab Value Units Date High Low HCGQT No results within date range. UHCG No results within date range. HCG, BODY* No results within date range. Lab Value Units Date High Low ABORHD No results within date range. ABSCREEN No results within date range. Hemoglobin A1C (%) Date Value 08/16/2021 6.2 Recent Results (from the past 8760 hour(s)) ECG COMPLETE Collection Time: 07/31/24 5:08 PM Result Value Ventricular Rate 59 Atrial Rate 59 P-R Interval 128 QRS Duration 84 QT Interval 406 QTC Calculation (Bazett) 401 Calculated P [place] 90 Calculated R [place] -2 Calculated T [place] -9 Impression SINUS BRADYCARDIA WITH PREMATURE ATRIAL COMPLEXES OTHERWISE NORMAL ECG Confirmed by MD RIBEIRO GREGORY () on 08/03/2024 9:16:53 AM Recent Results (from the past 59619 hour(s)) ECHO Collection Time: 03/18/23 2:09 PM Impression CONCLUSIONS: - Exam indication: Routine surveillance of mild valvular regurgitation (>3yrs) - The left ventricle is normal in size. Left ventricular systolic function is normal. EF = 63 5% (2D biplane) Grade I left ventricular diastolic dysfunction. - The right ventricle is normal in size. Right ventricular systolic function is normal. - There are no significant valvular abnormalities. - Exam was compared with the prior echocardiographic exam performed on 04/24/2021, no significant change. * * * Final * * * Instructions Given to Patient: Instructions located in the after visit summary. Patient given verbal and written preop instructions and voices comprehension and compliance. SIGNATURE: Wilfrido Apodaca APRN.CNP PATIENT NAME: Cheryl Marrero DATE: July 31, 2024 TIME: 3:17 PM PAGER/CONTACT #: documented in this encounter [facility] 07-29-2024 Telephone encounter Note 08-04-2024 Lumpectomy Amrita Campbell [facility] 07-29-2024 Miscellaneous Notes 08-04-2024 Lumpectomy Amrita Campbell documented in this encounter [facility] 07-29-2024 History of Present illness Narrative Images from the original note were not included. GENERAL SURGERY POST OP FOLLOW UP Patient seen and examined in the clinic to review pathology results following left breast core needle biopsy on 07/07/2024. She initially presented to general surgery clinic on 06/24/2024 with non-bloody nipple discharge from the left breast. This was sporadic in nature. Denied pain or history of trauma to the left breast/nipple areolar complex. ULTRASOUND FINDINGS: Ultrasound demonstrates an oval hypoechoic lesion measuring 0.5 x 0.5 x 0.4 cm in the anterior depth region of the left breast at 9 o'clock. No internal vascularity. Differential diagnosis includes a papillary lesion. Lesion appears intraductal in location. This may account for the nonbloody nipple discharge. A bedside US was performed, however it was difficult to isolate the mass in the setting of dense breast tissue and benign calcifications, so she was referred to radiology for image guided biopsy. Pathology: Intraductal papilloma Patient states that overall she is doing fine. Denies nausea, vomiting, diarrhea, constipation. No fevers or chills. Appetite is good. 10 point review of systems completed and is otherwise negative On exam: There were no vitals filed for this visit. Gen: NAD, well-nourished Lungs: unlabored breathing, bilateral chest rise LEFT BREAST: The breast skin and nipple areolar complexes appear normal without retraction or lesions. There is no nipple discharge. There is no dominant mass or clinical abnormality noted in left breast. The left breast was examined with ultrasound and the biopsy clip was identified in subareolar region. . RIGHT BREAST: The breast skin and nipple areolar complexes appear normal without retraction or lesions. There is no nipple discharge. There is no dominant mass or clinical abnormality noted in right breast. LEFT REGIONAL LYMPH NODES: There is no concerning supraclavicular, infraclavicular or axillary lymphadenopathy RIGHT REGIONAL LYMPH NODES: There is no concerning supraclavicular, infraclavicular or axillary lymphadenopathy The sensitive examination was discussed with the Patient or Patient's Authorized Polyethylene Combiner. As applicable, any other physician, advance practice provider, medical student, or other health professional student that will be observing or involved in the sensitive examination for educational or training purposes was discussed with the Patient or Authorized Polyethylene Combiner. The Patient or Authorized Polyethylene Combiner has agreed to proceed with the sensitive examination. (Sensitive examination includes inspection and/or palpation of the breasts, pelvis, prostate and anorectal regions) Pathology: Component FINAL DIAGNOSIS A. Left breast, 9:00, subareolar, core biopsy with Q clip placement: - Intraductal papilloma. Gross Description A. Breast, Left, Core Biopsy Received in formalin labeled as left breast subareolar 9:00 (Q clip) are multiple irregular segments of yellow-red tissue aggregating to 1.5 x 0.3 x 0.2 cm, yellow and of a rubbery consistency. Totally submitted in one cassette. The specimen was removed from the patient at 10:13 AM on 07/07/2024. On the same day, the specimen was placed in formalin at 10:13 AM. Gross examination performed at [facility], [address] [place] [address] [facility] July 07, 2024 2:59 PM Assessment ASSESSMENT Subareolar mass of left breast (primary encounter diagnosis) Intraductal papilloma of left breast RECOMMENDATION -We reviewed her pathology report - Intraductal papilloma is considered a high risk lesion and therefore I recommend lumpectomy. All risks, benefits, alternatives, and possible complications for a lumpectomy were discussed with the patient including infection, bleeding, post-operative pain/paresthesia, wound healing issues, and cosmetic changes. We also discussed FLASH patrol man placement versus US wire localization in the operating room. She does not want to undergo two procedures, and therefore requested wire localization. -Schedule for lumpectomy Dilshad Garcia DO July 29, 2024 8:36 AM documented in this encounter [facility] 07-29-2024 Note HNO ID: [id number] Author: DILSHAD GARCIA DO Service: ? Author Type: Physician Type: Progress Notes Filed: 08/03/2024 21:18 Note Text: GENERAL SURGERY POST OP FOLLOW UP Patient seen and examined in the clinic to review pathology results following left breast core needle biopsy on 07/07/2024. She initially presented to general surgery clinic on 06/24/2024 with non-bloody nipple discharge from the left breast. This was sporadic in nature. Denied pain or history of trauma to the left breast/nipple areolar complex. ULTRASOUND FINDINGS: Ultrasound demonstrates an oval hypoechoic lesion measuring 0.5 x 0.5 x 0.4 cm in the anterior depth region of the left breast at 9 o'clock. No internal vascularity. Differential diagnosis includes a papillary lesion. Lesion appears intraductal in location. This may account for the nonbloody nipple discharge. A bedside US was performed, however it was difficult to isolate the mass in the setting of dense breast tissue and benign calcifications, so she was referred to radiology for image guided biopsy. Pathology: Intraductal papilloma Patient states that overall she is doing fine. Denies nausea, vomiting, diarrhea, constipation. No fevers or chills. Appetite is good. 10 point review of systems completed and is otherwise negative On exam: There were no vitals filed for this visit. Gen: NAD, well-nourished Lungs: unlabored breathing, bilateral chest rise LEFT BREAST: The breast skin and nipple areolar complexes appear normal without retraction or lesions. There is no nipple discharge. There is no dominant mass or clinical abnormality noted in left breast. The left breast was examined with ultrasound and the biopsy clip was identified in subareolar region. . RIGHT BREAST: The breast skin and nipple areolar complexes appear normal without retraction or lesions. There is no nipple discharge. There is no dominant mass or clinical abnormality noted in right breast. LEFT REGIONAL LYMPH NODES: There is no concerning supraclavicular, infraclavicular or axillary lymphadenopathy RIGHT REGIONAL LYMPH NODES: There is no concerning supraclavicular, infraclavicular or axillary lymphadenopathy The sensitive examination was discussed with the Patient or Patient's Authorized Polyethylene Combiner. As applicable, any other physician, advance practice provider, medical student, or other health professional student that will be observing or involved in the sensitive examination for educational or training purposes was discussed with the Patient or Authorized Polyethylene Combiner. The Patient or Authorized Polyethylene Combiner has agreed to proceed with the sensitive examination. (Sensitive examination includes inspection and/or palpation of the breasts, pelvis, prostate and anorectal regions) Pathology: Component FINAL DIAGNOSIS A. Left breast, 9:00, subareolar, core biopsy with Q clip placement: - Intraductal papilloma. Gross Description A. Breast, Left, Core Biopsy Received in formalin labeled as left breast subareolar 9:00 (Q clip) are multiple irregular segments of yellow-red tissue aggregating to 1.5 x 0.3 x 0.2 cm, yellow and of a rubbery consistency. Totally submitted in one cassette. The specimen was removed from the patient at 10:13 AM on 07/07/2024. On the same day, the specimen was placed in formalin at 10:13 AM. Gross examination performed at [facility], [address] [place] [address] [facility] July 07, 2024 2:59 PM Assessment ASSESSMENT Subareolar mass of left breast (primary encounter diagnosis) Intraductal papilloma of left breast RECOMMENDATION -We reviewed her pathology report - Intraductal papilloma is considered a high risk lesion and therefore I recommend lumpectomy. All risks, benefits, alternatives, and possible complications for a lumpectomy were discussed with the patient including infection, bleeding, post-operative pain/paresthesia, wound healing issues, and cosmetic changes. We also discussed FLASH patrol man placement versus US wire localization in the operating room. She does not want to undergo two procedures, and therefore requested wire localization. -Schedule for lumpectomy Dilshad Garcia, July 29, 2024 8:36 AM [facility] 07-14-2024 Telephone encounter Note CATY: 07/09/24 office visit with Salma Medina PA-C 07/30/24: Injection scheduled with Dr. Walton Routing patient's quesitons to provider for review. [facility] 07-14-2024 Miscellaneous Notes CATY: 07/09/24 office visit with Salma Medina PA-C 07/30/24: Injection scheduled with Dr. Walton Routing patient's quesitons to provider for review. documented in this encounter [facility] 07-13-2024 Telephone encounter Note Duplicate encounter. Please refer to telephone encounter dated 07/10/24. Patient is already scheduled. [facility] 07-13-2024 Miscellaneous Notes Duplicate encounter. Please refer to telephone encounter dated 07/10/24. Patient is already scheduled. Received secure staff message from Salma Medina PA-C: Can you please call the patient to schedule the injection ordered? We will aim for LEFT L3-4 TFESI. Procedure: Left L3-4 TFESI D-P-A-/DW Ref Office to contact patient to schedule injection procedure. documented in this encounter [facility] 07-13-2024 Telephone encounter Note Received secure staff message from Salma Medina PA-C: Can you please call the patient to schedule the injection ordered? We will aim for LEFT L3-4 TFESI. Procedure: Left L3-4 TFESI D-P-A-/DW Ref Office to contact patient to schedule injection procedure. [facility] 07-10-2024 Note HNO ID: [id number] Author: STEVE STEINER MD Service: ? Author Type: Physician Type: Progress Notes Filed: 07/10/2024 14:23 Note Text: Results from the left breast ultrasound biopsy from 07/07/2024 have been discussed with the patient by Dr. Steiner (intraductal papilloma). The patient has an appointment with Dr. Garcia for follow up and further management, and she has been instructed to keep that appointment. No postprocedure complications were reported. [facility] 07-10-2024 History of Present illness Narrative Results from the left breast ultrasound biopsy from 07/07/2024 have been discussed with the patient by Dr. Steiner (intraductal papilloma). The patient has an appointment with Dr. Garcia for follow up and further management, and she has been instructed to keep that appointment. No postprocedure complications were reported. documented in this encounter [facility] 07-10-2024 Telephone encounter Note Patient contacted via telephone to schedule injection. Patient has scheduled for: 07/30/24 Patient instructed to hold the following medication(s) prior to the procedure: - NSAIDS for 5 days prior Pre-procedure instructions reviewed over telephone and a list of instructions were sent via [email or web address]. Patient verbalized understanding with no additional questions or concerns at this time. [facility] 07-10-2024 Miscellaneous Notes Patient contacted via telephone to schedule injection. Patient has scheduled for: 07/30/24 Patient instructed to hold the following medication(s) prior to the procedure: - NSAIDS for 5 days prior Pre-procedure instructions reviewed over telephone and a list of instructions were sent via [employer]. Patient verbalized understanding with no additional questions or concerns at this time. documented in this encounter [facility] 07-09-2024 Note HNO ID: [id number] Author: SALMA MEDINA PA-C Service: ? Author Type: Physician Ethylene Plant Operator Type: Progress Notes Filed: 07/09/2024 16:31 Note Text: Salma Medina PA-C [facility] [address] [place] [address] Dear Raul Bellamy PA-C, Cheryl Barnard Janse is a pleasant 79 year old individual who comes in to the office on 07/09/2024 for follow-up regarding the Lumbar spine. Patient's sister accompanies her and takes notes during the visit. The patient is pushing her sister in a wheelchair for today's visit. Subjective: Compared to the last visit, symptoms have been the same. Ms. Marrero still has mostly LLE pain in the quad and wrapping around the LEFT knee. The pain sometimes goes below the left knee into the lateral lower leg about snf down ROS: Since last visit-patient DENIES fevers, chills, night sweats, unexpected weight loss or gain, abdominal pain, progressive weakness, paralysis, loss of bowel/bladder control, saddle numbness, stumbling gait, loss of coordination. Current Outpatient Medications Medication Sig Dispense Refill tiZANidine (ZANAFLEX) 2 mg tablet Take 1 tablet by mouth every 8 hours as needed. (Patient not taking: Reported on 06/24/2024) 30 tablet 0 diclofenac (VOLTAREN) 1 % topical gel Apply 2 g to affected area two times a day as needed. 200 g 0 buPROPion XL (WELLBUTRIN XL) 150 mg 24 hr tablet Take 1 tablet by mouth once daily. 90 tablet 3 folic acid 1 mg tablet Take 1 tablet by mouth once daily. 90 tablet 3 lansoprazole (PREVACID) 30 mg capsule Take 1 capsule by mouth once daily. 90 capsule 3 metoprolol succinate ER (TOPROL XL) 25 mg 24 hr tablet Take 1 tablet by mouth two times a day. 180 tablet 3 rosuvastatin (CRESTOR) 5 mg tablet Take 1 tablet by mouth daily at bedtime. 90 tablet 3 ondansetron orally disintegrating (ZOFRAN ODT) 8 mg disintegrating tablet Take 1 tablet by mouth every 8 hours as needed for nausea/vomiting. 30 tablet 5 albuterol HFA (PROAIR HFA) 90 mcg/actuation inhaler Inhale 2 Puffs as instructed every 6 hours as needed. 18 g 11 meclizine (ANTIVERT) 25 mg tab Take 25 mg by mouth three times daily as needed. From [facility] clindamycin (CLEOCIN) 300 mg capsule Take 2 capsules by mouth one hour prior to dental cleaning/procedure 2 capsule 1 ascorbic acid (VITAMIN C ORAL) Take 1 tablet by mouth once daily. 1000mg CPAP polyethylene glycol 3350 (MIRALAX ORAL) Take 1 Tablespoonful by mouth as needed. acetaminophen (TYLENOL) 500 mg tablet Take 2 tablets by mouth every 8 hours as needed. fluticasone (FLONASE) 50 mcg/actuation nasal spray Use 1 [place] in each nostril once daily. vitamin B complex (B COMPLEX 1 ORAL) Take 1 tablet by mouth once daily. cholecalciferol (VITAMIN D3) 1,000 unit tab tablet Take 1,000 Units by mouth once daily. No current facility-administered medications for this visit. Exam: Blood pressure 138/81, pulse 73, SpO2 99%. There is no height or weight on file to calculate BMI. Station and Gait: favoring the left lower extremity Range of Motion: normal Motor: Diminished LEFT quad Sensory: LEFT LE N/T in quad and just below knee on the lateral side Reflexes: Hyporeflexic in lower extremities Pain on Palpation: Mild pain on palpation in the low back and LEFT sciatic notch Imaging: The following study/studies were reviewed with the patient during the visit: We did a rather lengthy review of her lumbar MRI study as well as the medical terminology found in the report that she brought with her to today's visit. She does have severe stenosis at the L3-4 level from a combination of facet hypertrophy, ligamentum flavum thickening and disc bulge. At L4-5, there is spondylolisthesis and resultant milder stenosis than what is seen at L3-4. She has multiple level disc degeneration and disc space height loss noted throughout. The L4-5 level does not appear to be significantly mobile through flexion and extension motion. 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 This was mentioned to the patient as well and she will consider use of an OTC heel lift to slowly correct it. Assessment/Plan: Encounter Diagnosis ICD-10-CM 1. Spinal stenosis of lumbar region with neurogenic claudication M48.062 SPINE INTERVENTION PROCEDURE 2. Radiculopathy, lumbar region M54.16 SPINE INTERVENTION PROCEDURE RTC: about a month after injection Other/Discussion: We had a long discussion during today's office visit regarding her findings on the MRI, correlation with her current symptoms, and recommendation to consider epidural injection transforaminal he at L3-4 on the LEFT. This seems to be most consistent with her current symptoms but if this does not give her appreciable post-injection relief, I would recommend L4 5 injection in a similar fashion. She may eventual (more content not included)... [facility] 07-09-2024 History of Present illness Narrative Salma Medina PA-C [facility] [address] [facility] [address] [place] [address] Dear Raul Bellamy PA-C, Cheryl Evon Janes is a pleasant 79 year old individual who comes in to the office on 07/09/2024 for follow-up regarding the Lumbar spine. Patient's sister accompanies her and takes notes during the visit. The patient is pushing her sister in a wheelchair for today's visit. Subjective: Compared to the last visit, symptoms have been the same. Ms. Marrero still has mostly LLE pain in the quad and wrapping around the LEFT knee. The pain sometimes goes below the left knee into the lateral lower leg about snf down ROS: Since last visit-patient DENIES fevers, chills, night sweats, unexpected weight loss or gain, abdominal pain, progressive weakness, paralysis, loss of bowel/bladder control, saddle numbness, stumbling gait, loss of coordination. Current Outpatient Medications Medication Sig Dispense Refill tiZANidine (ZANAFLEX) 2 mg tablet Take 1 tablet by mouth every 8 hours as needed. (Patient not taking: Reported on 06/24/2024) 30 tablet 0 diclofenac (VOLTAREN) 1 % topical gel Apply 2 g to affected area two times a day as needed. 200 g 0 buPROPion XL (WELLBUTRIN XL) 150 mg 24 hr tablet Take 1 tablet by mouth once daily. 90 tablet 3 folic acid 1 mg tablet Take 1 tablet by mouth once daily. 90 tablet 3 lansoprazole (PREVACID) 30 mg capsule Take 1 capsule by mouth once daily. 90 capsule 3 metoprolol succinate ER (TOPROL XL) 25 mg 24 hr tablet Take 1 tablet by mouth two times a day. 180 tablet 3 rosuvastatin (CRESTOR) 5 mg tablet Take 1 tablet by mouth daily at bedtime. 90 tablet 3 ondansetron orally disintegrating (ZOFRAN ODT) 8 mg disintegrating tablet Take 1 tablet by mouth every 8 hours as needed for nausea/vomiting. 30 tablet 5 albuterol HFA (PROAIR HFA) 90 mcg/actuation inhaler Inhale 2 Puffs as instructed every 6 hours as needed. 18 g 11 meclizine (ANTIVERT) 25 mg tab Take 25 mg by mouth three times daily as needed. From [facility] clindamycin (CLEOCIN) 300 mg capsule Take 2 capsules by mouth one hour prior to dental cleaning/procedure 2 capsule 1 ascorbic acid (VITAMIN C ORAL) Take 1 tablet by mouth once daily. 1000mg CPAP polyethylene glycol 3350 (MIRALAX ORAL) Take 1 Tablespoonful by mouth as needed. acetaminophen (TYLENOL) 500 mg tablet Take 2 tablets by mouth every 8 hours as needed. fluticasone (FLONASE) 50 mcg/actuation nasal spray Use 1 [place] in each nostril once daily. vitamin B complex (B COMPLEX 1 ORAL) Take 1 tablet by mouth once daily. cholecalciferol (VITAMIN D3) 1,000 unit tab tablet Take 1,000 Units by mouth once daily. No current facility-administered medications for this visit. Exam: Blood pressure 138/81, pulse 73, SpO2 99%. There is no height or weight on file to calculate BMI. Station and Gait: favoring the left lower extremity Range of Motion: normal Motor: Diminished LEFT quad Sensory: LEFT LE N/T in quad and just below knee on the lateral side Reflexes: Hyporeflexic in lower extremities Pain on Palpation: Mild pain on palpation in the low back and LEFT sciatic notch Imaging: The following study/studies were reviewed with the patient during the visit: We did a rather lengthy review of her lumbar MRI study as well as the medical terminology found in the report that she brought with her to today's visit. She does have severe stenosis at the L3-4 level from a combination of facet hypertrophy, ligamentum flavum thickening and disc bulge. At L4-5, there is spondylolisthesis and resultant milder stenosis than what is seen at L3-4. She has multiple level disc degeneration and disc space height loss noted throughout. The L4-5 level does not appear to be significantly mobile through flexion and extension motion. 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 This was mentioned to the patient as well and she will consider use of an OTC heel lift to slowly correct it. Assessment/Plan: Encounter Diagnosis ICD-10-CM 1. Spinal stenosis of lumbar region with neurogenic claudication M48.062 SPINE INTERVENTION PROCEDURE 2. Radiculopathy, lumbar region M54.16 SPINE INTERVENTION PROCEDURE RTC: about a month after injection Other/Discussion: We had a long discussion during today's office visit regarding her findings on the MRI, correlation with her current symptoms, and recommendation to consider epidural injection transforaminal he at L3-4 on the LEFT. This seems to be most consistent with her current symptoms but if this does not give her appreciable post-injection relief, I would recommend L4 5 injection in a similar fashion. She may eventually become a candidate for consideration of surgical treatment but we would want to pinpoint symptoms as well as possible prior to considering that. Time spent: 45 minutes today with this patient visit. This includes blac-[id number]-[id number] time, review of chart records regarding conservative care history, spine-pertinent imaging, and communication/care coordination with referring provider, problem-specific history-taking and counseling/education regarding treatment options. This document has been created with the use of voice recognition technology. It may contain inaccuracies: (e.g. misspellings, inaccurate syntax or word sense) that have escaped review. Gabriela Garza MA documented in this encounter [facility] 07-07-2024 Note HNO ID: [id number] Author: STEVE FREEDMAN RN Service: ? Author Type: Registered Nurse Type: Progress Notes Filed: 07/07/2024 11:43 Note Text: CDM Telephonic Outreach Provider Action/FYI Asthma HTN knee surgery, , Healthy at home Goal To get relief of left knee pain to improve mobility and stability (hx of total left knee). 07/09/2024 3:40 PM Salma Medina PA-C [facility] [place] results of MRI 07/29/2024 10:00 AM Dilshad Garcia, DO General Surgery post op 07/07 breast US biopsy Contacted for: Routine Telephonic Outreach Contact made with patient: No, left message. Steve Freedman RN July 07, 2024 11:42 AM [facility] 07-07-2024 History of Present illness Narrative CD Telephonic Outreach Provider Action/FYI Asthma HTN knee surgery, , Healthy at home Goal To get relief of left knee pain to improve mobility and stability (hx of total left knee). 07/09/2024 3:40 PM Salma Medina PA-C [facility] [place] results of MRI 07/29/2024 10:00 AM Dilshad Garcia, General Surgery post op 07/07 breast US biopsy Contacted for: Routine Telephonic Outreach Contact made with patient: No, left message. Steve Freedman RN July 07, 2024 11:42 AM documented in this encounter [facility] 07-07-2024 History of Present illness Narrative Radiology Service Progress Note PATIENT NAME: Cheryl Marrero DATE OF SERVICE: July 07, 2024 TIME: 10:51 AM PATIENT IDENTITY VERIFICATION COMPLETED USING TWO (2) IDENTIFIERS: Name and Date of confirmed by patient verbally. FALL SCREENING: Has the patient had 2 falls in the last year or 1 fall with injury or currently using an Ambulatory Assistive Device (Walker, Cane, Wheelchair, Crutches, etc.)? No PATIENT GENDER DATA: Female. status: : No status: NO. PATIENT RELEVANT IMPLANT DATA REVIEWED: Not Applicable PATIENT PRESENTS WITH AN IMPLANTABLE OR ATTACHED CUPOLA TAPPER: No RADIOLOGY DEPARTMENT: Biopsy PERIPHERAL IV DATA: Not applicable SIGNED BY: MASSIMO Cardoso) July 07, 2024 10:51 AM documented in this encounter [facility] 07-07-2024 Note HNO ID: [id number] Author: TESS SWEET RT(R) Service: ? Author Type: Technologist Type: Progress Notes Filed: 07/07/2024 10:51 Note Text: Radiology Service Progress Note PATIENT NAME: Cheryl Marrero DATE OF SERVICE: July 07, 2024 TIME: 10:51 AM PATIENT IDENTITY VERIFICATION COMPLETED USING TWO (2) IDENTIFIERS: Name and Date of confirmed by patient verbally. FALL SCREENING: Has the patient had 2 falls in the last year or 1 fall with injury or currently using an Ambulatory Assistive Device (Walker, Cane, Wheelchair, Crutches, etc.)? No PATIENT GENDER DATA: Female. status: : No status: NO. PATIENT RELEVANT IMPLANT DATA REVIEWED: Not Applicable PATIENT PRESENTS WITH AN IMPLANTABLE OR ATTACHED CUPOLA TAPPER: No RADIOLOGY DEPARTMENT: Biopsy PERIPHERAL IV DATA: Not applicable SIGNED BY: MASSIMO Cardoso) July 07, 2024 10:51 AM [facility] 07-07-2024 Note Patient Outreach ([facility] [place]) ---- JANESCHERYL Barnard ([id number]) 1945 F Date Time Provider Department 07/07/24 STEVE FREEDMAN During your visit today, we recorded the following information about you: Steve Freedman, RN 07/07/2024 11:43 AM Signed CD Telephonic Outreach Provider Action/KAYLAI Asthma HTN knee surgery, , Healthy at home Goal To get relief of left knee pain to improve mobility and stability (hx of total left knee). 07/09/2024 3:40 PM Salma Medina PA-C [facility] [place] results of MRI 07/29/2024 10:00 AM Dilshad Garcia, General Surgery post op 07/07 breast US biopsy Contacted for: Routine Telephonic Outreach Contact made with patient: No, left message. Steve Freedman RN July 07, 2024 11:42 AM Allergies As of Date: 07/07/2024 Noted Allergy Reaction PHENERGAN (PROMETHAZINE HCL) 12/16/2009 1 - Mental Status Change 5 - Intolerance [id number]-ERO REDUCTASE INHIBIT*05/14/2014 14 - Other: See Comments Comments: Elevated liver enzymes in hospital, statins stopped. ADHESIVE 08/02/2011 2 - Rash BREO ELLIPTA (FLUTICASONE FUROATE*04/18/2021 14 - Other: See Comments Comments: Hoarseness/ Shortness of breath PENICILLINS 06/18/2005 14 - Other: See Comments Comments: Local reaction at site of injection ROXICODONE (OXYCODONE) 08/16/2021 5 - Intolerance Comments: Severe nausea and lightheadness SULFA (SULFONAMIDE ANTIBIOTICS) 06/18/2005 VANCOMYCIN 10/05/2021 14 - Other: See Comments Comments: redness Date Reviewed: 07/07/2024 Reviewed by: Tess Sweet RT(R) - Fully Assessed Reason for Visit: community monitoring outreach [Other] Cmt: CD telephonic Prescriptions as of 07/30/2024 - tiZANidine (ZANAFLEX) 2 mg tablet Take 1 tablet by mouth every 8 hours as needed. - diclofenac (VOLTAREN) 1 % topical gel Apply 2 g to affected area two times a day as needed. - buPROPion XL (WELLBUTRIN XL) 150 mg 24 hr tablet Take 1 tablet by mouth once daily. - folic acid 1 mg tablet Take 1 tablet by mouth once daily. - lansoprazole (PREVACID) 30 mg capsule Take 1 capsule by mouth once daily. - metoprolol succinate ER (TOPROL XL) 25 mg 24 hr tablet Take 1 tablet by mouth two times a day. - rosuvastatin (CRESTOR) 5 mg tablet Take 1 tablet by mouth daily at bedtime. - ondansetron orally disintegrating (ZOFRAN ODT) 8 mg disintegrating tablet Take 1 tablet by mouth every 8 hours as needed for nausea/vomiting. - albuterol HFA (PROAIR HFA) 90 mcg/actuation inhaler Inhale 2 Puffs as instructed every 6 hours as needed. - meclizine (ANTIVERT) 25 mg tab Take 25 mg by mouth three times daily as needed. From [facility] er - clindamycin (CLEOCIN) 300 mg capsule Take 2 capsules by mouth one hour prior to dental cleaning/procedure - ascorbic acid (VITAMIN C ORAL) Take 1 tablet by mouth once daily. 1000mg - CPAP - polyethylene glycol 3350 (MIRALAX ORAL) Take 1 Tablespoonful by mouth as needed. - acetaminophen (TYLENOL) 500 mg tablet Take 2 tablets by mouth every 8 hours as needed. - fluticasone (FLONASE) 50 mcg/actuation nasal spray Use 1 [place] in each nostril once daily. - vitamin B complex (B COMPLEX 1 ORAL) Take 1 tablet by mouth once daily. - cholecalciferol (VITAMIN D3) 1,000 unit tab tablet Take 1,000 Units by mouth once daily. Problem List As Of Date 07/07/2024 Noted Resolved Anxiety state, unspecified [F41.1] 06/13/2017 INT HEMORRHOID W/O COMPL [K64.8] DIVERTICULOSIS OF COLON W/O BLEED [K57.30] Hemorrhage of gastrointestinal tract, unspecifi* 12/11/2016 Hyperlipidemia [E78.5] ADJUSTMENT DISORDER WITH DEPRESSED MOOD [F43.21]01/03/2006 URGE INCONTINENCE [N39.41] 07/05/2006 Diarrhea [R19.7] 09/09/2008 12/11/2016 Breast density [R92.30] 01/25/2010 12/11/2016 GERD (gastroesophageal reflux disease) [K21.9] 07/18/2010 Plantar fasciitis, bilateral [M72.2] 08/06/2012 12/11/2016 RAVIN (obstructive sleep apnea) [G47.33] 05/09/2013 08/16/2021 Urinary frequency [R35.0] 08/04/2013 Irritable bowel syndrome with diarrhea [K58.0] 08/09/2015 Mild persistent asthma without complication [J4*08/09/2015 IPMN (intraductal papillary mucinous neoplasm) *08/09/2015 Primary osteoarthritis of left knee [M17.12] 08/09/2015 08/16/2021 DDD (degenerative disc disease), lumbar [M51.36*06/13/2017 BPPV (benign paroxysmal positional vertigo), un*06/26/2017 Obesity, Class I, BMI 30-34.9 [E66.811] 01/13/2018 08/16/2021 Asthma [J45.909] 08/16/2021 Seasonal allergies [J30.2] Obstructive sleep apnea [G47.33] Lung nodules [R91.8] 04/04/2023 Non-rheumatic mitral regurgitation [I34.0] 03/09/2019 Chronic pain of right upper extremity [M79.601,*01/08/2020 Chronic pain of left knee [M25.562, G89.29] 06/27/2020 Chronic bilateral low back pain [M54.50, G89.29]06/27/2020 Mild pulmonary hypertension (HCC) [I27.20] 12/12/2020 S/P total knee arthroplasty, left [Z96.652] 12/28/2020 Acq (more content not included)... [facility] 06-30-2024 History of Present illness Narrative Radiology Service Progress Note PATIENT NAME: Cheryl Marrero DATE OF SERVICE: June 30, 2024 TIME: 1:48 PM PATIENT IDENTITY VERIFICATION COMPLETED USING TWO (2) IDENTIFIERS: Name and Date of confirmed by patient verbally. FALL SCREENING: Has the patient had 2 falls in the last year or 1 fall with injury or currently using an Ambulatory Assistive Device (Walker, Cane, Wheelchair, Crutches, etc.)? No PATIENT GENDER DATA: Female. status: : No status: NO. PATIENT RELEVANT IMPLANT DATA REVIEWED: Yes PATIENT PRESENTS WITH AN IMPLANTABLE OR ATTACHED CUPOLA TAPPER: No RADIOLOGY DEPARTMENT: MR; Exam(s) Completed: Spine: Lumbar spine PERIPHERAL IV DATA: Not applicable SIGNED BY: RT Emily(R) June 30, 2024 1:48 PM documented in this encounter [facility] 06-30-2024 History of Present illness Narrative Radiology Service Progress Note PATIENT NAME: Cheryl Marrero DATE OF SERVICE: June 30, 2024 TIME: 3:19 PM PATIENT IDENTITY VERIFICATION COMPLETED USING TWO (2) IDENTIFIERS: Name and Date of confirmed by patient verbally. FALL SCREENING: Has the patient had 2 falls in the last year or 1 fall with injury or currently using an Ambulatory Assistive Device (Walker, Cane, Wheelchair, Crutches, etc.)? No PATIENT GENDER DATA: Female. status: : No status: NO. PATIENT RELEVANT IMPLANT DATA REVIEWED: Not Applicable PATIENT PRESENTS WITH AN IMPLANTABLE OR ATTACHED CUPOLA TAPPER: No RADIOLOGY DEPARTMENT: lumbar ap/lat/flex/ext wt bearing PERIPHERAL IV DATA: Not applicable SIGNED BY: RT Deborah(R) June 30, 2024 3:19 PM documented in this encounter [facility] 06-26-2024 History and physical note Breast Services- Initial Consultation SERVICE DATE: 06/26/2024 REASON FOR TODAY'S VISIT: Abnormal mammogram - left breast mass SUBJECTIVE: HISTORY of PRESENT ILLNESS: Cheryl Marrero is a 79 year old female who presents for abnormal mammogram with new left breast subareolar mass. Patient states that she has not noticed a palpable mass in the right or left breast. She performs self breast exams intermittently, not necessarily on a monthly basis. She began having non-bloody nipple discharge. This is sporadic in nature. She is able to express the clear discharge with manual compression. Denies pain at the nipple. No prior trauma to the breast. She reports a history of abnormal mammogram in 2021 which showed multiple calcifications in the right breast, indeterminate. Diagnostic mammogram showed multiple grouped heterogenous calcifications in the right breast suspicious for degenerating fibroadenoma and probably benign. Recommended follow-up in 6 months. Repeat imaging x2 was stable, so she returned to annual screening mammograms. Most recent mammogram 06/17/24 showed new lesion in the left breast suspicious for malignancy (BI-RADS 4). She was referred to the general surgery office for biopsy recommendations. BREAST RELATED HISTORY: Abnormal Mammogram: 2021, 2023 Breast Mass: Left breast, subareolar Axillary Mass: No Nipple Discharge: Yes, clear. Left breast Breast Pain: No Breast Biopsy: No Breast Biopsy Pathology: NA Breast cyst drainage: NA Breast reduction: No Breast reconstruction: No Genetic testing: No Breast cancer: No FAMILY CANCER HISTORY: The patient is not of Ashkenazic Ancestry No family history of breast cancer that she is aware of PAST MEDICAL HISTORY: PAST MEDICAL HISTORY Diagnosis Date Adjustment disorder with depressed mood Anxiety state, unspecified Arthritis Asthma Coronary artery disease Diverticulosis of colon (without mention of hemorrhage) Hemorrhage of gastrointestinal tract, unspecified Iron deficiency anemia 06/29/2021 Localized osteoarthrosis not specified whether primary or secondary, lower leg Lung nodules Myalgia Obstructive sleep apnea Other and unspecified hyperlipidemia Seasonal allergies Shingles 01/2017 Urge urinary incontinence PAST SURGICAL HISTORY: PAST SURGICAL HISTORY Procedure Laterality Date ABDOMINAL SURGERY HX BREAST CYST PUNCTURE/BC CHOLECYSTECTOMY 04/09/2000 lap choley COLONOSCOPY - DIAGNOSTIC 11/01/2000 COLONOSCOPY FLX DX W/COLLJ SPEC WHEN PFRMD 09/09/2008 Colonoscopy COLONOSCOPY FLX DX W/COLLJ SPEC WHEN PFRMD 07/01/2014 Colonoscopy COLONOSCOPY FLX DX W/COLLJ SPEC WHEN PFRMD 11/05/2019 Colonoscopy COLONOSCOPY FLX DX W/COLLJ SPEC WHEN PFRMD 06/13/2021 ECHOCARDIOGRAM 04/24/2021 echo: LV small, LV SF WNL, EF 65%, grade 1 LVDD. All wall motion score normal. RV size and RV SF WNL, RVSP 38 mmHg consistent with mild pulmonary hypertension. LA and RA normal in size, inferior vena cava normal. MV: 0-1+ MVR, TV normal, 0-1+ TR, AV normal, PV not seen, 0-1+ FL. Mid a sending aorta 3.2 cm. Echocardiogram pulmonary arteries not interrogated, no pericardial effusion ESOPHAGOGASTRODUODENOSCOPY TRANSORAL DIAGNOSTIC 11/05/2019 EGD ESOPHAGOGASTRODUODENOSCOPY TRANSORAL DIAGNOSTIC 06/13/2021 EYE SURGERY HX HEMORRHOIDECTOMY INTERNAL RUBBER BAND LIGATIONS 11/05/2019 PICC LINE INSERT/CONSULT 08/24/2021 SKIN BIOPSY HX TONSILLECTOMY HX TONSILLECTOMY PRIMARY/SECONDARY TOTAL KNEE REPLACEMENT FAMILY HISTORY: FAMILY HISTORY Problem Relation Age of Onset Ischemic Heart Disease Father PASSED FROM [place] Diabetes Father Ischemic Heart Disease Mother PASSED FROM [place] Coronary Artery Disease Brother stent Diabetes Sister Cancer Maternal Grandfather lung Cancer Paternal Grandfather lung SOCIAL HISTORY: 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 Vaping Use Vaping status: Never Used Substance Use Topics Alcohol use: No Drug use: No Drug Use: No CURRENT MEDICATIONS: diclofenac (VOLTAREN) 1 % topical gel Apply 2 g to affected area two times a day as needed. buPROPion XL (WELLBUTRIN XL) 150 mg 24 hr tablet Take 1 tablet by mouth once daily. folic acid 1 mg tablet Take 1 tablet by mouth once daily. lansoprazole (PREVACID) 30 mg capsule Take 1 capsule by mouth once daily. metoprolol succinate ER (TOPROL XL) 25 mg 24 hr tablet Take 1 tablet by mouth two times a day. rosuvastatin (CRESTOR) 5 mg tablet Take 1 tablet by mouth daily at bedtime. ondansetron orally disintegrating (ZOFRAN ODT) 8 mg disintegrating tablet Take 1 tablet by mouth every 8 hours as needed for nausea/vomiting. albuterol HFA (PROAIR HFA) 90 mcg/actuation inhaler Inhale 2 Puffs as instructed every 6 hours as needed. meclizine (ANTIVERT) 25 mg tab Take 25 mg by mouth three times daily as needed. From [facility] clindamycin (CLEOCIN) 300 mg capsule Take 2 capsules by mouth one hour prior to dental cleaning/procedure ascorbic acid (VITAMIN C ORAL) Take 1 tablet by mouth once daily. 1000mg CPAP polyethylene glycol 3350 (MIRALAX ORAL) Take 1 Tablespoonful by mouth as needed. acetaminophen (TYLENOL) 500 mg tablet Take 2 tablets by mouth every 8 hours as needed. fluticasone (FLONASE) 50 mcg/actuation nasal spray Use 1 [place] in each nostril once daily. vitamin B complex (B COMPLEX 1 ORAL) Take 1 tablet by mouth once daily. cholecalciferol (VITAMIN D3) 1,000 unit tab tablet Take 1,000 Units by mouth once daily. tiZANidine (ZANAFLEX) 2 mg tablet Take 1 tablet by mouth every 8 hours as needed. (Patient not taking: Reported on 06/24/2024) ALLERGIES: ALLERGIES Allergen Reactions Phenergan [Prometha* Mental Status Change, Intolerance Qjuhjxy-Lnu-Bae Red* Other: See Comments Elevated liver enzymes in hospital, statins stopped. Adhesive Rash Breo Ellipta [Fluti* Other: See Comments Hoarseness/ Shortness of breath Penicillins Other: See Comments Local reaction at site of injection Roxicodone [Oxycodo* Intolerance Severe nausea and lightheadness Sulfa (Sulfonamide * Vancomycin Other: See Comments redness REVIEW OF SYSTEMS: GENERAL: No weight loss, malaise or fevers. HEENT: Negative for frequent or significant headaches, No changes in hearing or vision, no nose bleeds or other nasal problems RESPIRATORY: Negative for cough, hemoptysis, wheezing or shortness of breath CARDIOVASCULAR: Negative for chest pain, leg swelling or palpitations. GI: No nausea, vomiting, or diarrhea : No history of dysuria, frequency or incontinence. BASKETBALL ASSEMBLER: Negative for abnormal vaginal bleeding, abnormal vaginal discharge. MUSCULOSKELETAL: Negative for joint pain or swelling, back pain or muscle pain. SKIN: Denies Scleroderma or Lupus. Denies chronic skin conditions. PSYCH: Negative for sleep disturbance, mood disorder and recent psychosocial stressors. All other reviewed and negative other than HPI. OBJECTIVE: PHYSICAL EXAM: BP 124/84 Pulse 84 Temp 36.3 C (97.4 F) Ht 170.2 cm (5' 7) Wt 74.8 kg (165 lb) SpO2 99% BMI 25.84 kg/m Body mass index is 25.84 kg/m . GENERAL:well-nourished, healthy, female, alert and oriented x 3, calm SKIN:warm, dry, skin color, texture, turgor normal HEAD/EYES:normocephalic, atraumatic, and anicteric NECK: supple, symmetrical, no thyromegaly RESPIRATORY: Respirations regular & non-labored ABDOMEN: soft, nondistended. No hepatomegaly., No masses MUSCULOSKELETAL: No observed limitations in range of motion of upper extremities Patient ambulates independently LEFT BREAST: The breast skin is normal with no rashes or lesions. No obvious skin retraction in seated or supine position. There is a small amount of clear nipple discharge with manual compression. There is no dominant mass or clinical abnormality noted in left breast. RIGHT BREAST: The breast skin and nipple areolar complexes appear normal without retraction or lesions. There is no nipple discharge. There is no dominant mass or clinical abnormality noted in right breast. LEFT REGIONAL LYMPH NODES: There is no concerning supraclavicular, infraclavicular or axillary lymphadenopathy RIGHT REGIONAL LYMPH NODES: There is no concerning supraclavicular, infraclavicular or axillary lymphadenopathy IMAGING: Screening Mammogram 2023 COMPARISON STUDIES: The present examination has been compared to prior imaging studies dated 08/06/2018 (mammogram), 09/30/2019 (mammogram), 02/19/2022 (mammogram), 03/28/2022 (mammogram), 10/03/2022 (mammogram) and 04/17/2023 (mammogram). MAMMOGRAM TECHNIQUE: The study was acquired using full field digital technology and interpreted from soft copy. Digital Breast Tomosynthesis (DBT) images were obtained and used to assist in the interpretation of this examination. Computer-aided detection was utilized by the radiologist in the interpretation of this examination. MAMMOGRAM FINDINGS: The breasts are heterogeneously dense, which may obscure small masses. There are benign calcifications in both breasts. There is no mammographic correlate to account for the nonbloody discharge from the left nipple. Ultrasound is recommended. No suspicious masses, calcifications or other abnormalities are seen in the right breast. Ultrasound 06/17/24 ULTRASOUND TECHNIQUE: Targeted ultrasound of the indicated area was performed. Olmos scale images were saved. ULTRASOUND FINDINGS: Ultrasound demonstrates an oval hypoechoic lesion measuring 0.5 x 0.5 x 0.4 cm in the anterior depth region of the left breast at 9 o'clock. No internal vascularity. Differential diagnosis includes a papillary lesion. Lesion appears intraductal in location. This may account for the nonbloody nipple discharge. PATHOLOGY: NA ASSESSMENT: Cheryl Marrero is a 79 year old female presenting to clinic with abnormal screening mammogram which showed a left breast subareolar mass concerning for malignancy. PLAN: -Bedside left breast US performed in clinic. It was difficult to isolate the mass with the bedside US, so a referral for IR to obtain image guided breast biopsy was placed -Patient will return to clinic following left breast biopsy to discuss pathology findings. My recommendation will be communicated back to the requesting physician by way of the shared record. Dilshad Garcia DO General Surgery [facility] 06-26-2024 History and physical note Breast Services- Initial Consultation SERVICE DATE: 06/26/2024 REASON FOR TODAY'S VISIT: Abnormal mammogram - left breast mass SUBJECTIVE: HISTORY of PRESENT ILLNESS: Cheryl Marrero is a 79 year old female who presents for abnormal mammogram with new left breast subareolar mass. Patient states that she has not noticed a palpable mass in the right or left breast. She performs self breast exams intermittently, not necessarily on a monthly basis. She began having non-bloody nipple discharge. This is sporadic in nature. She is able to express the clear discharge with manual compression. Denies pain at the nipple. No prior trauma to the breast. She reports a history of abnormal mammogram in 2021 which showed multiple calcifications in the right breast, indeterminate. Diagnostic mammogram showed multiple grouped heterogenous calcifications in the right breast suspicious for degenerating fibroadenoma and probably benign. Recommended follow-up in 6 months. Repeat imaging x2 was stable, so she returned to annual screening mammograms. Most recent mammogram 06/17/24 showed new lesion in the left breast suspicious for malignancy (BI-RADS 4). She was referred to the general surgery office for biopsy recommendations. BREAST RELATED HISTORY: Abnormal Mammogram: 2021, 2023 Breast Mass: Left breast, subareolar Axillary Mass: No Nipple Discharge: Yes, clear. Left breast Breast Pain: No Breast Biopsy: No Breast Biopsy Pathology: NA Breast cyst drainage: NA Breast reduction: No Breast reconstruction: No Genetic testing: No Breast cancer: No FAMILY CANCER HISTORY: The patient is not of Ashkenazic Ancestry No family history of breast cancer that she is aware of PAST MEDICAL HISTORY: PAST MEDICAL HISTORY Diagnosis Date Adjustment disorder with depressed mood Anxiety state, unspecified Arthritis Asthma Coronary artery disease Diverticulosis of colon (without mention of hemorrhage) Hemorrhage of gastrointestinal tract, unspecified Iron deficiency anemia 06/29/2021 Localized osteoarthrosis not specified whether primary or secondary, lower leg Lung nodules Myalgia Obstructive sleep apnea Other and unspecified hyperlipidemia Seasonal allergies Shingles 01/2017 Urge urinary incontinence PAST SURGICAL HISTORY: PAST SURGICAL HISTORY Procedure Laterality Date ABDOMINAL SURGERY HX BREAST CYST PUNCTURE/BC CHOLECYSTECTOMY 04/09/2000 lap choley COLONOSCOPY - DIAGNOSTIC 11/01/2000 COLONOSCOPY FLX DX W/COLLJ SPEC WHEN PFRMD 09/09/2008 Colonoscopy COLONOSCOPY FLX DX W/COLLJ SPEC WHEN PFRMD 07/01/2014 Colonoscopy COLONOSCOPY FLX DX W/COLLJ SPEC WHEN PFRMD 11/05/2019 Colonoscopy COLONOSCOPY FLX DX W/COLLJ SPEC WHEN PFRMD 06/13/2021 ECHOCARDIOGRAM 04/24/2021 echo: LV small, LV SF WNL, EF 65%, grade 1 LVDD. All wall motion score normal. RV size and RV SF WNL, RVSP 38 mmHg consistent with mild pulmonary hypertension. LA and RA normal in size, inferior vena cava normal. MV: 0-1+ MVR, TV normal, 0-1+ TR, AV normal, PV not seen, 0-1+ FL. Mid a sending aorta 3.2 cm. Echocardiogram pulmonary arteries not interrogated, no pericardial effusion ESOPHAGOGASTRODUODENOSCOPY TRANSORAL DIAGNOSTIC 11/05/2019 EGD ESOPHAGOGASTRODUODENOSCOPY TRANSORAL DIAGNOSTIC 06/13/2021 EYE SURGERY HX HEMORRHOIDECTOMY INTERNAL RUBBER BAND LIGATIONS 11/05/2019 PICC LINE INSERT/CONSULT 08/24/2021 SKIN BIOPSY HX TONSILLECTOMY HX TONSILLECTOMY PRIMARY/SECONDARY <AGE 11 TOTAL KNEE REPLACEMENT FAMILY HISTORY: FAMILY HISTORY Problem Relation Age of Onset Ischemic Heart Disease Father P[place]ED FROM [place] Diabetes Father Ischemic Heart Disease Mother PASSED FROM [place] Coronary Artery Disease Brother stent Diabetes Sister Cancer Maternal Grandfather lung Cancer Paternal Grandfather lung SOCIAL HISTORY: 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 Vaping Use Vaping status: Never Used Substance Use Topics Alcohol use: No Drug use: No Drug Use: No CURRENT MEDICATIONS: diclofenac (VOLTAREN) 1 % topical gel Apply 2 g to affected area two times a day as needed. buPROPion XL (WELLBUTRIN XL) 150 mg 24 hr tablet Take 1 tablet by mouth once daily. folic acid 1 mg tablet Take 1 tablet by mouth once daily. lansoprazole (PREVACID) 30 mg capsule Take 1 capsule by mouth once daily. metoprolol succinate ER (TOPROL XL) 25 mg 24 hr tablet Take 1 tablet by mouth two times a day. rosuvastatin (CRESTOR) 5 mg tablet Take 1 tablet by mouth daily at bedtime. ondansetron orally disintegrating (ZOFRAN ODT) 8 mg disintegrating tablet Take 1 tablet by mouth every 8 hours as needed for nausea/vomiting. albuterol HFA (PROAIR HFA) 90 mcg/actuation inhaler Inhale 2 Puffs as instructed every 6 hours as needed. meclizine (ANTIVERT) 25 mg tab Take 25 mg by mouth three times daily as needed. From [facility] er clindamycin (CLEOCIN) 300 mg capsule Take 2 capsules by mouth one hour prior to dental cleaning/procedure ascorbic acid (VITAMIN C ORAL) Take 1 tablet by mouth once daily. 1000mg CPAP polyethylene glycol 3350 (MIRALAX ORAL) Take 1 Tablespoonful by mouth as needed. acetaminophen (TYLENOL) 500 mg tablet Take 2 tablets by mouth every 8 hours as needed. fluticasone (FLONASE) 50 mcg/actuation nasal spray Use 1 [place] in each nostril once daily. vitamin B complex (B COMPLEX 1 ORAL) Take 1 tablet by mouth once daily. cholecalciferol (VITAMIN D3) 1,000 unit tab tablet Take 1,000 Units by mouth once daily. tiZANidine (ZANAFLEX) 2 mg tablet Take 1 tablet by mouth every 8 hours as needed. (Patient not taking: Reported on 06/24/2024) ALLERGIES: ALLERGIES Allergen Reactions Phenergan [Prometha* Mental Status Change, Intolerance Iwniwxt-Ibw-Smn Red* Other: See Comments Elevated liver enzymes in hospital, statins stopped. Adhesive Rash Breo Ellipta [Fluti* Other: See Comments Hoarseness/ Shortness of breath Penicillins Other: See Comments Local reaction at site of injection Roxicodone [Oxycodo* Intolerance Severe nausea and lightheadness Sulfa (Sulfonamide * Vancomycin Other: See Comments redness REVIEW OF SYSTEMS: GENERAL: No weight loss, malaise or fevers. HEENT: Negative for frequent or significant headaches, No changes in hearing or vision, no nose bleeds or other nasal problems RESPIRATORY: Negative for cough, hemoptysis, wheezing or shortness of breath CARDIOVASCULAR: Negative for chest pain, leg swelling or palpitations. GI: No nausea, vomiting, or diarrhea : No history of dysuria, frequency or incontinence. BASKETBALL ASSEMBLER: Negative for abnormal vaginal bleeding, abnormal vaginal discharge. MUSCULOSKELETAL: Negative for joint pain or swelling, back pain or muscle pain. SKIN: Denies Scleroderma or Lupus. Denies chronic skin conditions. PSYCH: Negative for sleep disturbance, mood disorder and recent psychosocial stressors. All other reviewed and negative other than HPI. OBJECTIVE: PHYSICAL EXAM: BP 124/84 Pulse 84 Temp 36.3 C (97.4 F) Ht 170.2 cm (5' 7) Wt 74.8 kg (165 lb) SpO2 99% BMI 25.84 kg/m Body mass index is 25.84 kg/m . GENERAL:well-nourished, healthy, female, alert and oriented x 3, calm SKIN:warm, dry, skin color, texture, turgor normal HEAD/EYES:normocephalic, atraumatic, and anicteric NECK: supple, symmetrical, no thyromegaly RESPIRATORY: Respirations regular & non-labored ABDOMEN: soft, nondistended. No hepatomegaly., No masses MUSCULOSKELETAL: No observed limitations in range of motion of upper extremities Patient ambulates independently LEFT BREAST: The breast skin is normal with no rashes or lesions. No obvious skin retraction in seated or supine position. There is a small amount of clear nipple discharge with manual compression. There is no dominant mass or clinical abnormality noted in left breast. RIGHT BREAST: The breast skin and nipple areolar complexes appear normal without retraction or lesions. There is no nipple discharge. There is no dominant mass or clinical abnormality noted in right breast. LEFT REGIONAL LYMPH NODES: There is no concerning supraclavicular, infraclavicular or axillary lymphadenopathy RIGHT REGIONAL LYMPH NODES: There is no concerning supraclavicular, infraclavicular or axillary lymphadenopathy IMAGING: Screening Mammogram 2023 COMPARISON STUDIES: The present examination has been compared to prior imaging studies dated 08/06/2018 (mammogram), 09/30/2019 (mammogram), 02/19/2022 (mammogram), 03/28/2022 (mammogram), 10/03/2022 (mammogram) and 04/17/2023 (mammogram). MAMMOGRAM TECHNIQUE: The study was acquired using full field digital technology and interpreted from soft copy. Digital Breast Tomosynthesis (DBT) images were obtained and used to assist in the interpretation of this examination. Computer-aided detection was utilized by the radiologist in the interpretation of this examination. MAMMOGRAM FINDINGS: The breasts are heterogeneously dense, which may obscure small masses. There are benign calcifications in both breasts. There is no mammographic correlate to account for the nonbloody discharge from the left nipple. Ultrasound is recommended. No suspicious masses, calcifications or other abnormalities are seen in the right breast. Ultrasound 06/17/24 ULTRASOUND TECHNIQUE: Targeted ultrasound of the indicated area was performed. Olmos scale images were saved. ULTRASOUND FINDINGS: Ultrasound demonstrates an oval hypoechoic lesion measuring 0.5 x 0.5 x 0.4 cm in the anterior depth region of the left breast at 9 o'clock. No internal vascularity. Differential diagnosis includes a papillary lesion. Lesion appears intraductal in location. This may account for the nonbloody nipple discharge. PATHOLOGY: NA ASSESSMENT: Cheryl Marrero is a 79 year old female presenting to clinic with abnormal screening mammogram which showed a left breast subareolar mass concerning for malignancy. PLAN: -Bedside left breast US performed in clinic. It was difficult to isolate the mass with the bedside US, so a referral for IR to obtain image guided breast biopsy was placed -Patient will return to clinic following left breast biopsy to discuss pathology findings. My recommendation will be communicated back to the requesting physician by way of the shared record. Dilshad Garcia, DO General Surgery documented in this encounter [facility] 06-24-2024 Nurse Note REVIEW OF SYSTEMS: General: The patient NOTES fatigue, denies weight loss, denies weight gain, NOTES feeling hot, and denies feelings of cold. Eyes: The patient denies glaucoma, denies eye injury/surgery, does not wear glasses or contacts. Ear/Nose/Throat: The patient NOTES allergies, denies hayfever, denies ear infections, and denies bloody noses. Cardiovascular: The patient denies chest pain, denies heart disease, NOTES high blood pressure,denies cardiac stent, denies prior heart attack, denies irregular heart beat, NOTES high cholesterol, denies poor circulation, denies heart failure, other cardiac issues, NOTES claudication, denies cold feet, denies peripheral arterial stent. Respiratory: The patient denies tuberculosis, denies pneumonia, NOTES frequent cough, denies pulmonary embolism, NOTES shortness of breath, and denies coughing up blood. Gastrointestinal: The patient denies difficulty swallowing, NOTES acid reflux, denies ulcers, denies vomiting, denies jaundice/hepatitis, denies gallbladder problems, denies black or tarry stools, NOTES hemorrhoids, denies bleeding from rectum, denies diverticulitis, denies constipation, denies diarrhea, denies loss of stool control, and denies hernias. Kidney/Bladder: The patient denies kidney stones, denies urine infections, and denies bloody urine. Skin: The patient denies a history of skin cancer, denies bleeding/changing moles, and denies a history of skin rash. Neurologic: The patient denies a history of epilepsy/convulsions, denies headaches, denies head/spinal injuries, and denies stroke/TIA. Psychiatric: The patient denies psychiatric medications, NOTES depression, and denies voices, denies substance abuse. Endocrine: The patient denies thyroid disorders, denies diabetes, and denies hormonal problems. Hematologic: The patient denies a history of bruising, denies bleeding, and NOTES anemia, denies blood clots. Infections: The patient NOTES a history of measles and mumps, NOTES rheumatic fever, and denies sexually transmitted diseases. Musculoskeletal: The patient NOTES back pain/injury, NOTES back problems, denies sciatica, denies knee/foot trouble, NOTES arthritis, or denies gout. When was patient's last Mammogram screening? Last Colonoscopy: 06/13/2021 Salma Luna RN [facility] 06-24-2024 Nurse Note REVIEW OF SYSTEMS: General: The patient NOTES fatigue, denies weight loss, denies weight gain, NOTES feeling hot, and denies feelings of cold. Eyes: The patient denies glaucoma, denies eye injury/surgery, does not wear glasses or contacts. Ear/Nose/Throat: The patient NOTES allergies, denies hayfever, denies ear infections, and denies bloody noses. Cardiovascular: The patient denies chest pain, denies heart disease, NOTES high blood pressure,denies cardiac stent, denies prior heart attack, denies irregular heart beat, NOTES high cholesterol, denies poor circulation, denies heart failure, other cardiac issues, NOTES claudication, denies cold feet, denies peripheral arterial stent. Respiratory: The patient denies tuberculosis, denies pneumonia, NOTES frequent cough, denies pulmonary embolism, NOTES shortness of breath, and denies coughing up blood. Gastrointestinal: The patient denies difficulty swallowing, NOTES acid reflux, denies ulcers, denies vomiting, denies jaundice/hepatitis, denies gallbladder problems, denies black or tarry stools, NOTES hemorrhoids, denies bleeding from rectum, denies diverticulitis, denies constipation, denies diarrhea, denies loss of stool control, and denies hernias. Kidney/Bladder: The patient denies kidney stones, denies urine infections, and denies bloody urine. Skin: The patient denies a history of skin cancer, denies bleeding/changing moles, and denies a history of skin rash. Neurologic: The patient denies a history of epilepsy/convulsions, denies headaches, denies head/spinal injuries, and denies stroke/TIA. Psychiatric: The patient denies psychiatric medications, NOTES depression, and denies voices, denies substance abuse. Endocrine: The patient denies thyroid disorders, denies diabetes, and denies hormonal problems. Hematologic: The patient denies a history of bruising, denies bleeding, and NOTES anemia, denies blood clots. Infections: The patient NOTES a history of measles and mumps, NOTES rheumatic fever, and denies sexually transmitted diseases. Musculoskeletal: The patient NOTES back pain/injury, NOTES back problems, denies sciatica, denies knee/foot trouble, NOTES arthritis, or denies gout. When was patient's last Mammogram screening? Last Colonoscopy: 06/13/2021 Salma Luna RN documented in this encounter [facility] 06-23-2024 History of Present illness Narrative CDM Telephonic Outreach Provider Action/FYI Asthma HTN knee surgery, , Healthy at home Goal To get relief of left knee pain to improve mobility and stability (hx of total left knee). 06/24/2024 11:30 AM Dilshad Garcia, General Surgery BIOPSY CONSULT - LT BREAST NIPPLE DISCHARGE 05/08 screening mammo 06/17 dx juanjo mammo and left breast US: oval hypoechoic lesion measuring 0.5 x 0.5 x 0.4 cm in the anterior depth region of the left breast at 9 o'clock. ra 06/30/2024 1:20 PM XR [facility] Radiology Request: XR LUMBAR MOTION 4V AP/LAT/ FLEX/EXT 06/30/2024 1:40 PM MRI RADIO [facility] (I-STAT/1.5T) Radiology Request: MRI LUMBAR SPINE WO IVCON Contacted for: Routine Telephonic Outreach Contact made with patient: No, left message. Steve Freedman RN June 23, 2024 10:18 AM documented in this encounter [facility] 06-17-2024 History of Present illness Narrative Radiology Service Progress Note PATIENT NAME: Cheryl Marrero DATE OF SERVICE: June 17, 2024 TIME: 1:36 PM PATIENT IDENTITY VERIFICATION COMPLETED USING TWO (2) IDENTIFIERS: Name and Date of confirmed by patient verbally. FALL SCREENING: Has the patient had 2 falls in the last year or 1 fall with injury or currently using an Ambulatory Assistive Device (Walker, Cane, Wheelchair, Crutches, etc.)? No PATIENT GENDER DATA: Female. status: : No status: NO. PATIENT RELEVANT IMPLANT DATA REVIEWED: Not Applicable PATIENT PRESENTS WITH AN IMPLANTABLE OR ATTACHED CUPOLA TAPPER: No RADIOLOGY DEPARTMENT: Mammography PERIPHERAL IV DATA: Not applicable SIGNED BY: RT Jamil(R) June 17, 2024 1:36 PM documented in this encounter [facility] 05-29-2024 History of Present illness Narrative Salma Medina PA-C [facility] [address] [address] Dear Layla Bellamy PA-C, Cheryl Barnard Janes is a pleasant 78 year old individual who comes in to the office on 05/29/2024 for follow-up regarding the Lumbar spine. Has lower back pain, pain goes down to the left knee. Sometimes can hardly walk. Sometimes pain wakes her up. Level of the pain is at 3/10. More pain with walking or any physical activity. Patient is here alone today. Subjective: Compared to the last visit, symptoms have been the same. Ms. Marrero is here after Physical Therapy was completed. It did help some, but not 100%. PT was done at [facility] via [facility]. She recalls 8 weeks of PT with 2 sessions per week for total of 16 visits. ROS: Since last visit-patient DENIES fevers, chills, night sweats, unexpected weight loss or gain, abdominal pain, progressive weakness, paralysis, loss of bowel/bladder control, saddle numbness, stumbling gait, loss of coordination. Current Outpatient Medications Medication Sig Dispense Refill diclofenac (VOLTAREN) 1 % topical gel Apply 2 g to affected area two times a day as needed. 200 g 0 buPROPion XL (WELLBUTRIN XL) 150 mg 24 hr tablet Take 1 tablet by mouth once daily. 90 tablet 3 folic acid 1 mg tablet Take 1 tablet by mouth once daily. 90 tablet 3 lansoprazole (PREVACID) 30 mg capsule Take 1 capsule by mouth once daily. 90 capsule 3 metoprolol succinate ER (TOPROL XL) 25 mg 24 hr tablet Take 1 tablet by mouth two times a day. 180 tablet 3 rosuvastatin (CRESTOR) 5 mg tablet Take 1 tablet by mouth daily at bedtime. 90 tablet 3 ondansetron orally disintegrating (ZOFRAN ODT) 8 mg disintegrating tablet Take 1 tablet by mouth every 8 hours as needed for nausea/vomiting. 30 tablet 5 albuterol HFA (PROAIR HFA) 90 mcg/actuation inhaler Inhale 2 Puffs as instructed every 6 hours as needed. 18 g 11 meclizine (ANTIVERT) 25 mg tab Take 25 mg by mouth three times daily as needed. From [facility] er clindamycin (CLEOCIN) 300 mg capsule Take 2 capsules by mouth one hour prior to dental cleaning/procedure 2 capsule 1 ascorbic acid (VITAMIN C ORAL) Take 1 tablet by mouth once daily. 1000mg CPAP polyethylene glycol 3350 (MIRALAX ORAL) Take 1 Tablespoonful by mouth as needed. acetaminophen (TYLENOL) 500 mg tablet Take 2 tablets by mouth every 8 hours as needed. fluticasone (FLONASE) 50 mcg/actuation nasal spray Use 1 [place] in each nostril once daily. vitamin B complex (B COMPLEX 1 ORAL) Take 1 tablet by mouth once daily. cholecalciferol (VITAMIN D3) 1,000 unit tab tablet Take 1,000 Units by mouth once daily. No current facility-administered medications for this visit. Exam: Blood pressure 125/71, pulse 71, height 170.2 cm (5' 7), weight 74.3 kg (163 lb 12.8 oz), SpO2 98%. Body mass index is 25.66 kg/m . Station and Gait: favoring the left lower extremity Range of Motion: Normal lumbar range of motion Motor: There is definite LEFT quad weakness at 3+/5. All other lower extremity motor groups are 5/5 Sensory: No focal sensory deficits except hyperesthesia noted along the lateral aspect of the LEFT knee Reflexes: Absent LEFT patellar reflex. All other LE reflexes are 2/4 Pain on Palpation: Pain on the RIGHT PSIS and lateral LEFT knee. Imaging: No new imaging studies were reviewed during this office visit. Assessment/Plan: Encounter Diagnosis ICD-10-CM 1. Spinal stenosis of lumbar region with neurogenic claudication M48.062 MRI LUMBAR SPINE WO IVCON XR LUMBAR MOTION 4V AP/LAT/ FLEX/EXT tiZANidine (ZANAFLEX) 2 mg tablet 2. Radiculopathy, lumbar region M54.16 MRI LUMBAR SPINE WO IVCON XR LUMBAR MOTION 4V AP/LAT/ FLEX/EXT tiZANidine (ZANAFLEX) 2 mg tablet RTC: for test results (see ordered test(s) above) Other/Discussion: has had fairly extensive PT as noted above--16 visits. She has had extensive LEFT knee surgery and still has left knee pain and cannot fully straighten it. Will need OPEN MRI due to asthma She will have her x-rays done prior to lumbar MRI study. I would like to see her back after the MRI. If MRI does show LEFT-sided mid lumbar nerve root lesion, I would treat accordingly with TFESI, but if it does not show that, I would try to further evaluate with EMG study to see if she might have a peripheral nerve lesion. Time spent: 35 minutes today with this patient visit. This includes [id number] time, review of chart records regarding conservative care history, spine-pertinent imaging, and communication/care coordination with referring provider, problem-specific history-taking and counseling/education regarding treatment options. This document has been created with the use of voice recognition technology. It may contain inaccuracies: (e.g. misspellings, inaccurate syntax or word sense) that have escaped review. Anat Molina MA documented in this encounter [facility] 05-26-2024 History of Present illness Narrative CDM Telephonic Outreach Provider Action/FYI Asthma HTN knee surgery, , Healthy at home Goal To get relief of left knee pain to improve mobility and stability (hx of total left knee). 05/29/2024 1:40 PM Salma Medina PA-C Spine [place] Radiculopathy, lumbar region follow up after PT completed at [facility] 06/17/2024 1:00 PM DIAGNOSTIC MAMMO [facility] Mammogram Encounter for screening mammogram for malignant neoplasm of breast [Z12.31]; Nipple discharge [N64.52] 06/17/2024 1:30 PM [facility] M[facility] 1 Radiology Encounter for screening mammogram for malignant neoplasm of breast [Z12.31] Nipple discharge [N64.52] Contacted for: Routine Telephonic Outreach Contact made with patient: No, left message. 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 Decision tree blocked PSS from proceeding to schedule. PSS instructed to notify ordering provider to order a diagnostic mammogram. Patient states this has been a reoccurring issue for years but was able to schedule screening mammograms. Please review and submit diagnostic mammogram or authorize patient to proceed with mammogram screening. Spoke with patient to schedule mammogram, she stated she will call back Please call pt to set up appt for mammogram. 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 Decision tree blocked PSS from proceeding to schedule. PSS instructed to notify ordering provider to order a diagnostic mammogram. Patient states this has been a reoccurring issue for years but was able to schedule screening mammograms. Please review and submit diagnostic mammogram or authorize patient to proceed with mammogram screening. [facility] 05-11-2024 Telephone encounter Note Spoke with patient to schedule mammogram, she stated she will call back [facility] 05-08-2024 Telephone encounter Note Please call pt to set up appt for mammogram. [facility] 05-08-2024 Telephone encounter Note done [facility] 05-08-2024 Telephone encounter Note Patient is calling requesting her mammography order to be placed due anytime after 04/17/2023 [facility] 04-28-2024 History of Present illness Narrative CDM Telephonic Outreach Provider Action/FYI Asthma HTN knee surgery, , Healthy at home Goal To get relief of left knee pain to improve mobility and stability (hx of total left knee). Contacted for: Routine Telephonic Outreach Contact made with patient: No, left message. Steve Freedman RN April 28, 2024 12:50 PM documented in this encounter [facility] 04-23-2024 Instructions Afia Schafer APRN.CNP - 04/23/2024 9:34 AM EDT 1) Saline nasal spray daily and/ or loratadine daily 2) Diclofenac gel 2 x day [id number] to left knee and right shoulder 3) head of bed elevated and no eating within 2 hours of bedtime 4) Follow up in 6 months documented in this encounter [facility] 04-23-2024 History of Present illness Narrative This is a 78 year old female who presents today with: Patient presents with: 6 Month Exam HISTORY OF PRESENT ILLNESS: Cheryl Marrero is a 78 year old female. Patient presents with: 6 Month Exam Blood pressure always runs high usually. Wanted to review labs Right shoulder tender- hurt to the touch yesterday, today is better Crocheting lately and likes to do something with her hands when she is watching TV Low back pain that is treated by landcare officer Dry cough persists. Using lozenges. Needs handicapped placard PAST MEDICAL HISTORY: PAST MEDICAL HISTORY No date: Adjustment disorder with depressed mood No date: Anxiety state, unspecified No date: Arthritis No date: Asthma No date: Coronary artery disease No date: Diverticulosis of colon (without mention of hemorrhage) No date: Hemorrhage of gastrointestinal tract, unspecified 06/29/2021: Iron deficiency anemia No date: Localized osteoarthrosis not specified whether primary or secondary, lower leg No date: Lung nodules No date: Myalgia No date: Obstructive sleep apnea No date: Other and unspecified hyperlipidemia No date: Seasonal allergies 01/2017: Shingles No date: Urge urinary incontinence PAST SURGICAL HISTORY No date: ABDOMINAL SURGERY HX No date: BREAST CYST PUNCTURE/BC 04/09/2000: CHOLECYSTECTOMY Comment: po choley 11/01/2000: COLONOSCOPY - DIAGNOSTIC 09/09/2008: COLONOSCOPY FLX DX W/COLLJ SPEC WHEN PFRMD Comment: Colonoscopy 07/01/2014: COLONOSCOPY FLX DX W/COLLJ SPEC WHEN PFRMD Comment: Colonoscopy 11/05/2019: COLONOSCOPY FLX DX W/COLLJ SPEC WHEN PFRMD Comment: Colonoscopy 06/13/2021: COLONOSCOPY FLX DX W/COLLJ SPEC WHEN PFRMD Comment: 04/24/2021: ECHOCARDIOGRAM Comment: echo: LV small, LV SF WNL, EF 65%, grade 1 LVDD. All wall motion score normal. RV size and RV SF WNL, RVSP 38 mmHg consistent with mild pulmonary hypertension. LA and RA normal in size, inferior vena cava normal. MV: 0-1+ MVR, TV normal, 0-1+ TR, AV normal, PV not seen, 0-1+ FL. Mid a sending aorta 3.2 cm. Echocardiogram pulmonary arteries not interrogated, no pericardial effusion 11/05/2019: ESOPHAGOGASTRODUODENOSCOPY TRANSORAL DIAGNOSTIC Comment: EGD 06/13/2021: ESOPHAGOGASTRODUODENOSCOPY TRANSORAL DIAGNOSTIC Comment: No date: EYE SURGERY HX 11/05/2019: HEMORRHOIDECTOMY INTERNAL RUBBER BAND LIGATIONS 08/24/2021: PICC LINE INSERT/CONSULT No date: SKIN BIOPSY HX No date: TONSILLECTOMY HX No date: TONSILLECTOMY PRIMARY/SECONDARY <AGE 12 No date: TOTAL KNEE REPLACEMENT ALLERGIES Phenergan [Promethazine Hcl], Vepshlq-Ttg-Urq Reductase Inhibitors, Adhesive, Breo Ellipta [Fluticasone Furoate-Vilanterol], Penicillins, Roxicodone [Oxycodone], Sulfa (Sulfonamide Antibiotics), and Vancomycin MEDICATIONS Current Outpatient Medications Medication Sig lansoprazole (PREVACID) 30 mg capsule Take 1 capsule by mouth once daily. buPROPion XL (WELLBUTRIN XL) 150 mg 24 hr tablet Take 1 tablet by mouth once daily. metoprolol succinate ER (TOPROL XL) 25 mg 24 hr tablet Take 1 tablet by mouth two times a day. folic acid 1 mg tablet Take 1 tablet by mouth once daily. albuterol HFA (PROAIR HFA) 90 mcg/actuation inhaler Inhale 2 Puffs as instructed every 6 hours as needed. rosuvastatin (CRESTOR) 5 mg tablet Take 1 tablet by mouth daily at bedtime. meclizine (ANTIVERT) 25 mg tab Take 25 mg by mouth three times daily as needed. From [facility] er clindamycin (CLEOCIN) 300 mg capsule Take 2 capsules by mouth one hour prior to dental cleaning/procedure ondansetron orally disintegrating (ZOFRAN ODT) 8 mg disintegrating tablet Take 1 tablet by mouth every 8 hours as needed for nausea/vomiting. ascorbic acid (VITAMIN C ORAL) Take 1 tablet by mouth once daily. 1000mg ondansetron (ZOFRAN) 4 mg tablet Take 1 tablet by mouth every 8 hours as needed. polyethylene glycol 3350 (MIRALAX ORAL) Take 1 Tablespoonful by mouth as needed. acetaminophen (TYLENOL) 500 mg tablet Take 2 tablets by mouth every 8 hours as needed. fluticasone (FLONASE) 50 mcg/actuation nasal spray Use 1 [place] in each nostril once daily. vitamin B complex (B COMPLEX 1 ORAL) Take 1 tablet by mouth once daily. cholecalciferol (VITAMIN D3) 1,000 unit tab tablet Take 1,000 Units by mouth once daily. CPAP No current facility-administered medications for this visit. FAMILY HISTORY Problem Relation Age of Onset Ischemic Heart Disease Father PASSED FROM [place] Diabetes Father Ischemic Heart Disease Mother PASSED FROM [place] Coronary Artery Disease Brother stent Diabetes Sister Cancer Maternal Grandfather lung Cancer Paternal Grandfather lung Social History Tobacco Use Smoking status: Never Smokeless tobacco: Never Tobacco comments: Lived with smokers in childhood home and until 2002. Vaping Use Vaping status: Never Used Substance Use Topics Alcohol use: No Drug use: No REVIEW OF SYSTEMS GENERAL: No weight loss- slight weight gain, + malaise, no fevers/chills- hot flashes HEENT: Negative for frequent or significant headaches except sinusitis, No changes in hearing or vision. NECK: Negative for lumps, goiter, pain and significant neck swelling RESPIRATORY: Persistent dry cough, no hemoptysis, no wheezing, + dyspnea or shortness of breath CARDIOVASCULAR: Negative for chest pain, leg swelling, orthopnea, or palpitations GI: Some nausea, no vomiting, both diarrhea/constipation. No hematochezia/melena. occ heartburn or reflux symptoms. : No history of dysuria, frequency or incontinence MUSCULOSKELETAL: Occ joint pain or swelling mostly left knee. SKIN: Negative for lesions, rash, and itching ENDOCRINE: Negative for cold or heat intolerance- sweats with hot flashes, + polyuria, polydipsia NEURO: No history of headaches, syncope, paralysis, seizures or tremors MOOD: Ongoing depression, no anxiety, denies suicidal ideation. EXAM: BP 112/68 Pulse 74 Wt 72.6 kg (160 lb) SpO2 98% BMI 25.82 kg/m PHYSICAL EXAM: Physical Exam Vitals reviewed. Constitutional: Appearance: Normal appearance. HENT: Head: Normocephalic. Right Ear: Tympanic membrane, ear canal and external ear normal. There is no impacted cerumen. Left Ear: Tympanic membrane, ear canal and external ear normal. There is no impacted cerumen. Nose: Nose normal. No congestion or rhinorrhea. Comments: Bluish tint and cobblestone Mouth/Throat: Mouth: Mucous membranes are dry. Neck: Vascular: No carotid bruit. Cardiovascular: Rate and Rhythm: Normal rate and regular rhythm. Pulses: Normal pulses. Heart sounds: Normal heart sounds. Pulmonary: Effort: Pulmonary effort is normal. Breath sounds: Normal breath sounds. Abdominal: General: Bowel sounds are normal. Palpations: Abdomen is soft. Tenderness: There is no abdominal tenderness. There is no guarding or rebound. Musculoskeletal: Cervical back: Normal range of motion. Comments: Left knee brace intact- chronic knee pain Moves all ext. Without difficulty Lymphadenopathy: Cervical: No cervical adenopathy. Skin: General: Skin is warm and dry. Neurological: General: No focal deficit present. Mental Status: She is alert and oriented to person, place, and time. Psychiatric: Mood and Affect: Mood normal. Behavior: Behavior normal. LABS: reviewed recent labs with pt. Dexa scan in 18 months ASSESSMENT/PLAN: 1. Chronic pain of right upper extremity - ICD9: 729.5, 338.29, ICD10: M79.601, G89.29 (primary diagnosis) Overuse syndrome- discussed icing - DICLOFENAC 1 % TOPICAL GEL 2 x day 2. Other hyperlipidemia - ICD9: 272.4, ICD10: E78.49 Stable 3. Mild persistent asthma without complication - ICD9: 493.90, ICD10: J45.30 - Mild intermittent asthma Stable - Avoidance of triggers recommended - Did not want medication 4. 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 Mild pulmonary hypertension (HCC) - ICD9: 416.8, ICD10: I27.20 Stable 6. Obstructive sleep apnea - ICD9: 327.23, ICD10: G47.33 Non-adherent to CPAP 7. Seasonal allergic rhinitis, unspecified trigger - ICD9: 477.9, ICD10: J30.2 Suggested daily loratadine and or saline nasal spray - Consider ENT - Uses Zofran 8 mg for nausea Discussed treatment plan and patient voices understanding. Patient's questions answered appropriately. Medications and potential side effects were discussed and patient voices understanding. Return to the office as scheduled or as needed for worsening/no improvement. Afia Schafer APRN.CNP documented in this encounter [facility] 04-04-2024 Telephone encounter Note Patient was made aware of the results. Patient verbalizes understanding. Bibi Scott Ma [facility] 04-04-2024 Miscellaneous Notes Patient was made aware of the results. Patient verbalizes understanding. Bibi Scott Ma ----- Message from Afia Schafer APRN.CNP sent at 04/03/2024 5:18 PM EDT ----- Kidney function is slightly weak but stable. Blood counts ok. Cholesterol level looks good. documented in this encounter [facility] 04-04-2024 Telephone encounter Note ----- Message from Afia Schafer APRN.CNP sent at 04/03/2024 5:18 PM EDT ----- Kidney function is slightly weak but stable. Blood counts ok. Cholesterol level looks good. [facility] 03-31-2024 History of Present illness Narrative CDM Telephonic Outreach Provider Action/FYI Spoke to pt, denies any CDM issues or concerns Fasting labs prior to 04/23 appt, reminded pt Asthma HTN knee surgery, , Healthy at home Goal To get relief of left knee pain to improve mobility and stability (hx of total left knee). 04/23/2024 9:00 AM Layla Bellamy PA-C [facility] [place] 6 month follow up Contacted for: Routine Telephonic Outreach Contact made with patient: Yes Patient identified by name and date of . Discussed care with patient Are you experiencing any new or worsening symptoms you need to talk about today? No Disease Specific Do you check your blood pressure at home? Yes, Enter readings: 130-150's systolic which is really 110-130's systolic due to BP monitor variation Do you have new or worsening shortness of breath with activity? No Do you have new or worsening cough? No Do you have new or worsening wheezing? No Do you need to use your rescue (Albuterol) inhaler or nebulizer more often than normal? No Based on gluer and slicer hand, the following disposition is advised: No symptoms or symptoms present, not severe. Routed to: No Action Needed DELMIS Education Provided this Outreach: No Pt states will call to schedule with new tree topper and make f/u appt with crime specialist Steve Freedman RN March 31, 2024 3:08 PM documented in this encounter [facility] 03-19-2024 Telephone encounter Note Prescription Refill Information The patient has been identified by name and date of : Yes Caregiver verified no other encounters exist for this prescription request: Yes Caregiver confirmed with patient/requestor that no other refills are due, in the near future, with this provider at this time: No The last office visit in the department: 03/17/24 Does the patient have a future office visit with this provider/department: Yes 04/23/24 Requested Prescriptions Pending Prescriptions Disp Refills lansoprazole (PREVACID) 30 mg capsule 90 capsule 3 Sig: Take 1 capsule by mouth once daily. Josie Hunter MA March 19, 2024 8:45 AM [facility] 03-19-2024 Miscellaneous Notes Prescription Refill Information The patient has been identified by name and date of : Yes Caregiver verified no other encounters exist for this prescription request: Yes Caregiver confirmed with patient/requestor that no other refills are due, in the near future, with this provider at this time: No The last office visit in the department: 03/17/24 Does the patient have a future office visit with this provider/department: Yes 04/23/24 Requested Prescriptions Pending Prescriptions Disp Refills lansoprazole (PREVACID) 30 mg capsule 90 capsule 3 Sig: Take 1 capsule by mouth once daily. Josie Hunter MA March 19, 2024 8:45 AM documented in this encounter [facility] 03-17-2024 History of Present illness Narrative Radiology Service Progress Note PATIENT NAME: Cheryl Marrero DATE OF SERVICE: March 17, 2024 TIME: 10:16 AM PATIENT IDENTITY VERIFICATION COMPLETED USING TWO (2) IDENTIFIERS: Name and Date of confirmed by patient verbally. FALL SCREENING: Has the patient had 2 falls in the last year or 1 fall with injury or currently using an Ambulatory Assistive Device (Walker, Cane, Wheelchair, Crutches, etc.)? No PATIENT GENDER DATA: Female. status: : No status: NO. PATIENT RELEVANT IMPLANT DATA REVIEWED: Not Applicable PATIENT PRESENTS WITH AN IMPLANTABLE OR ATTACHED CUPOLA TAPPER: No RADIOLOGY DEPARTMENT: General X-ray: Exam(s) Completed: Spine X-Ray(s): Sacrum/Coccyx PERIPHERAL IV DATA: Not applicable SIGNED BY: RT Nino(R) March 17, 2024 10:16 AM documented in this encounter [facility] 03-17-2024 Instructions Dominga Ann APRN.BE - 03/17/2024 10:08 AM EDT Get the xray of the tailbone. We'll let you know when we receive the results. Tylenol as needed for pain. Donut pillow. Topicals (samson sosa, icy hot, biofreeze). documented in this encounter [facility] 03-17-2024 History of Present illness Narrative This is a 78 year old female who presents today with: Patient presents with: Fall: Missed chair x3 days ago and fell onto tailbone. Has been having pain since. HISTORY OF PRESENT ILLNESS: Cheryl Marrero is a 78 year old female. Patient presents with: Fall: Missed chair x3 days ago and fell onto tailbone. Has been having pain since. Pt presents today with complaint of a concern over a possible broken tailbone. Refers that she missed the chair three days ago and fell onto bottom. Refers that she has been having pain in the tailbone area. Chronic lower back pain. Refers that it is ecchymotic. Had been icing it and taking tylenol. Used donut pillow. PAST MEDICAL HISTORY: PAST MEDICAL HISTORY Diagnosis Date Adjustment disorder with depressed mood Anxiety state, unspecified Arthritis Asthma Coronary artery disease Diverticulosis of colon (without mention of hemorrhage) Hemorrhage of gastrointestinal tract, unspecified Iron deficiency anemia 06/29/2021 Localized osteoarthrosis not specified whether primary or secondary, lower leg Lung nodules Myalgia Obstructive sleep apnea Other and unspecified hyperlipidemia Seasonal allergies Shingles 01/2017 Urge urinary incontinence PAST SURGICAL HISTORY Procedure Laterality Date ABDOMINAL SURGERY HX BREAST CYST PUNCTURE/BC CHOLECYSTECTOMY 04/09/2000 lap choley COLONOSCOPY - DIAGNOSTIC 11/01/2000 COLONOSCOPY FLX DX W/COLLJ SPEC WHEN PFRMD 09/09/2008 Colonoscopy COLONOSCOPY FLX DX W/COLLJ SPEC WHEN PFRMD 07/01/2014 Colonoscopy COLONOSCOPY FLX DX W/COLLJ SPEC WHEN PFRMD 11/05/2019 Colonoscopy COLONOSCOPY FLX DX W/COLLJ SPEC WHEN PFRMD 06/13/2021 ECHOCARDIOGRAM 04/24/2021 echo: LV small, LV SF WNL, EF 65%, grade 1 LVDD. All wall motion score normal. RV size and RV SF WNL, RVSP 38 mmHg consistent with mild pulmonary hypertension. LA and RA normal in size, inferior vena cava normal. MV: 0-1+ MVR, TV normal, 0-1+ TR, AV normal, PV not seen, 0-1+ FL. Mid a sending aorta 3.2 cm. Echocardiogram pulmonary arteries not interrogated, no pericardial effusion ESOPHAGOGASTRODUODENOSCOPY TRANSORAL DIAGNOSTIC 11/05/2019 EGD ESOPHAGOGASTRODUODENOSCOPY TRANSORAL DIAGNOSTIC 06/13/2021 EYE SURGERY HX HEMORRHOIDECTOMY INTERNAL RUBBER BAND LIGATIONS 11/05/2019 PICC LINE INSERT/CONSULT 08/24/2021 SKIN BIOPSY HX TONSILLECTOMY HX TONSILLECTOMY PRIMARY/SECONDARY <AGE 12 TOTAL KNEE REPLACEMENT ALLERGIES Phenergan [Promethazine Hcl], Mxnpgkc-Gqr-Kva Reductase Inhibitors, Adhesive, Breo Ellipta [Fluticasone Furoate-Vilanterol], Penicillins, Roxicodone [Oxycodone], Sulfa (Sulfonamide Antibiotics), and Vancomycin MEDICATIONS Current Outpatient Medications Medication Sig doxycycline (VIBRA-TABS) 100 mg tablet Take 1 tablet by mouth two times a day for 10 days. buPROPion XL (WELLBUTRIN XL) 150 mg 24 hr tablet Take 1 tablet by mouth once daily. metoprolol succinate ER (TOPROL XL) 25 mg 24 hr tablet Take 1 tablet by mouth two times a day. folic acid 1 mg tablet Take 1 tablet by mouth once daily. albuterol HFA (PROAIR HFA) 90 mcg/actuation inhaler Inhale 2 Puffs as instructed every 6 hours as needed. rosuvastatin (CRESTOR) 5 mg tablet Take 1 tablet by mouth daily at bedtime. lansoprazole (PREVACID) 30 mg capsule Take 1 capsule by mouth once daily. meclizine (ANTIVERT) 25 mg tab Take 25 mg by mouth three times daily as needed. From [facility] er clindamycin (CLEOCIN) 300 mg capsule Take 2 capsules by mouth one hour prior to dental cleaning/procedure ondansetron orally disintegrating (ZOFRAN ODT) 8 mg disintegrating tablet Take 1 tablet by mouth every 8 hours as needed for nausea/vomiting. ascorbic acid (VITAMIN C ORAL) Take 1 tablet by mouth once daily. 1000mg ondansetron (ZOFRAN) 4 mg tablet Take 1 tablet by mouth every 8 hours as needed. CPAP polyethylene glycol 3350 (MIRALAX ORAL) Take 1 Tablespoonful by mouth as needed. acetaminophen (TYLENOL) 500 mg tablet Take 2 tablets by mouth every 8 hours as needed. fluticasone (FLONASE) 50 mcg/actuation nasal spray Use 1 [place] in each nostril once daily. vitamin B complex (B COMPLEX 1 ORAL) Take 1 tablet by mouth once daily. cholecalciferol (VITAMIN D3) 1,000 unit tab tablet Take 1,000 Units by mouth once daily. Current Facility-Administered Medications Medication Dose Route Frequency perflutren lipid microspheres 1.3 mL in NaCl (PF) 0.9% 10 mL injection (DEFINITY) INTRAVENOUS DIRECTED PRN sodium chloride 0.9 % (flush) 10 mL (BD POSIFLUSH) 10 mL INTRAVENOUS DIRECTED PRN FAMILY HISTORY Problem Relation Age of Onset Ischemic Heart Disease Father PASSED FROM [place] Diabetes Father Ischemic Heart Disease Mother PASSED FROM [place] Coronary Artery Disease Brother stent Diabetes Sister Cancer Maternal Grandfather lung Cancer Paternal Grandfather lung Social History Tobacco Use Smoking status: Never Smokeless tobacco: Never Tobacco comments: Lived with smokers in childhood home and until 2002. Vaping Use Vaping Use: Never used Substance Use Topics Alcohol use: No Drug use: No EXAM: BP 136/80 Pulse 76 Resp 18 SpO2 98% PHYSICAL EXAM: General Appearance: Well appearing, alert, in no acute distress, well-hydrated, well nourished.. Skin: Skin color, texture, turgor normal, no suspicious rashes or lesions. Head: Normocephalic, no masses, lesions, tenderness or abnormalities. Eyes: Anicteric sclera. Extraocular movements are intact. . Back:+ tenderness over coccyx. Neurologic: Gait normal. Slow getting to standing position. ASSESSMENT/PLAN: 1. Coccyx pain - ICD9: 724.79, ICD10: M53.3 Will get xray. Tylenol prn. Ice Topicals. Donut pillow. - XR SACRUM/COCCYX 3V AP/LAT Discussed treatment plan and patient voices understanding. Patient's questions answered appropriately. Medications and potential side effects were discussed and patient voices understanding. Return to the office as scheduled or as needed for worsening/no improvement. Dominga Ann APRN.ROOF BOLTER OPERATOR documented in this encounter [facility] 03-09-2024 Nurse Note Ambulatory Ear Lavage Pre-treatment: No pre-treatment Treatment: Both ears Equipment and Irrigation solution and Volume used: Single use syringe with single use irrigation tip Water Return flow appearance: Brown Yellow Patient tolerated procedure: yes Tympanic membrane assessment: Tympanic membrane assessed by LIP pre and post procedure [facility] 03-09-2024 Nurse Note Ambulatory Ear Lavage Pre-treatment: No pre-treatment Treatment: Both ears Equipment and Irrigation solution and Volume used: Single use syringe with single use irrigation tip Water Return flow appearance: Brown Yellow Patient tolerated procedure: yes Tympanic membrane assessment: Tympanic membrane assessed by LIP pre and post procedure documented in this encounter [facility] 03-09-2024 History of Present illness Narrative 03/09/2024 Patient presents with: Cough: X3 weeks with headache and nasal congestion SUBJECTIVE: This is a 78 year old that is here today for Above Complaints.. For the last three weeks has had dry cough, headchce, nasal congestion, and intermittent left ear pain. Admits to sinus pressure across forehead. Has been using [place] without much relief. Did not test for COVID-19. Denies fevers, chills, muscle aches, rhinorrhea, sore throat, loss of taste/smell, SOB, dyspnea, wheezing, chest pain, nausea, vomiting or diarrhea PAST MEDICAL HISTORY Diagnosis Date Adjustment disorder with depressed mood Anxiety state, unspecified Arthritis Asthma Coronary artery disease Diverticulosis of colon (without mention of hemorrhage) Hemorrhage of gastrointestinal tract, unspecified Iron deficiency anemia 06/29/2021 Localized osteoarthrosis not specified whether primary or secondary, lower leg Lung nodules Myalgia Obstructive sleep apnea Other and unspecified hyperlipidemia Seasonal allergies Shingles 01/2017 Urge urinary incontinence ALLERGIES Phenergan [Promethazine Hcl], Kqgbqdt-Zmx-Eha Reductase Inhibitors, Adhesive, Breo Ellipta [Fluticasone Furoate-Vilanterol], Penicillins, Roxicodone [Oxycodone], Sulfa (Sulfonamide Antibiotics), and Vancomycin MEDICATIONS Current Outpatient Medications Medication Sig buPROPion XL (WELLBUTRIN XL) 150 mg 24 hr tablet Take 1 tablet by mouth once daily. metoprolol succinate ER (TOPROL XL) 25 mg 24 hr tablet Take 1 tablet by mouth two times a day. folic acid 1 mg tablet Take 1 tablet by mouth once daily. albuterol HFA (PROAIR HFA) 90 mcg/actuation inhaler Inhale 2 Puffs as instructed every 6 hours as needed. rosuvastatin (CRESTOR) 5 mg tablet Take 1 tablet by mouth daily at bedtime. lansoprazole (PREVACID) 30 mg capsule Take 1 capsule by mouth once daily. meclizine (ANTIVERT) 25 mg tab Take 25 mg by mouth three times daily as needed. From [facility] er clindamycin (CLEOCIN) 300 mg capsule Take 2 capsules by mouth one hour prior to dental cleaning/procedure ondansetron orally disintegrating (ZOFRAN ODT) 8 mg disintegrating tablet Take 1 tablet by mouth every 8 hours as needed for nausea/vomiting. ascorbic acid (VITAMIN C ORAL) Take 1 tablet by mouth once daily. 1000mg ondansetron (ZOFRAN) 4 mg tablet Take 1 tablet by mouth every 8 hours as needed. CPAP polyethylene glycol 3350 (MIRALAX ORAL) Take 1 Tablespoonful by mouth as needed. acetaminophen (TYLENOL) 500 mg tablet Take 2 tablets by mouth every 8 hours as needed. fluticasone (FLONASE) 50 mcg/actuation nasal spray Use 1 [place] in each nostril once daily. vitamin B complex (B COMPLEX 1 ORAL) Take 1 tablet by mouth once daily. cholecalciferol (VITAMIN D3) 1,000 unit tab tablet Take 1,000 Units by mouth once daily. Current Facility-Administered Medications Medication Dose Route Frequency perflutren lipid microspheres 1.3 mL in NaCl (PF) 0.9% 10 mL injection (DEFINITY) INTRAVENOUS DIRECTED PRN sodium chloride 0.9 % (flush) 10 mL (BD POSIFLUSH) 10 mL INTRAVENOUS DIRECTED PRN Medications and allergies reviewed by this provider. SOCIAL HISTORY Social History Tobacco Use Smoking status: Never Smokeless tobacco: Never Tobacco comments: Lived with smokers in childhood home and until 2002. Vaping Use Vaping Use: Never used Substance Use Topics Alcohol use: No Drug use: No REVIEW OF SYSTEMS All other reviewed and negative other than HPI. OBJECTIVE: BP 136/66 Pulse 76 Resp 18 Wt 72.1 kg (159 lb) SpO2 97% BMI 25.66 kg/m . Vital signs reviewed by this provider. APPEARANCE Well appearing, alert, in no acute distress, well-hydrated, well nourished. EYES conjunctiva and sclera normal. EARS External ears normal. Positive findings: cerumen bilaterally, amount Large NOSE/SINUS positive findings: sinus tenderness frontal bilateral. TM WNL after ear lavage- no cerumen observed THROAT normal, no erythema NECK Supple, no adenopathy; thyroid symmetric, normal size, no bruits HEART RRR with normal S1 and S2, no murmurs, no gallops, no JVD appreciated LUNG clear to auscultation. No wheezes, rhonchi or rales SKIN Skin color, texture, turgor normal, no suspicious rashes or lesions to exposed skin BP Controlled (<130/80) Never done RSV Vaccine(1 - 1-dose 60+ series) Never done Shingrix Vaccine(2 of 3) due on 03/13/2010 DTaP,Tdap,Td Vaccine(1 - Tdap) due on 01/06/2015 Advance Directive Discussion due on 08/26/2023 Covid-19 Vaccine( - 2022- season) due on 02/19/2024 Influenza Vaccine(1) due on 04/26/2024 Annual PCP Team Chronic Disease Visit due on 03/09/2025 Diabetes Screening due on 03/15/2026 Bone Density Screening Completed Spirometry Completed Pneumococcal Vaccine: 65+ Completed Colorectal Cancer Screening Discontinued ASSESSMENT/PLAN: 1. Bacterial sinusitis - ICD9: 473.9, 041.9, ICD10: J32.9, B96.89 (primary diagnosis) - Will begin treatment with as per antibiotic as written, see orders - The patient should also be given OTC cough and cold meds as needed for the first 5-7 days of treatment. - Supportive care with plenty of fluids, rest, and analgesia prn. - Follow up in 3-5 days if symptoms persist or worsen. - DOXYCYCLINE HYCLATE 100 MG TABLET 2. Bilateral impacted cerumen - ICD9: 380.4, ICD10: H61.23 - resolved with irrigation - REMOVAL OF IMPACTED CERUMEN - INSTRUMENTATION - AMBULATORY EAR LAVAGE/IRRIGATION Nataliya Pederson APRN.ROOF BOLTER OPERATOR Prescription instructions reviewed with patient as applicable. Patient advised if symptoms do not improve or if symptoms worsen sooner, to contact their primary care physician. Potential red flag symptoms discussed with the patient. Reviewed appropriate action plan to take if red flag symptoms occur. Patient agreeable to treatment plan. Medical Decision Making: Problems: Low: Acute, uncomplicated illness or injury Risk: Moderate: Drug management Medical Decision Making Level: 3 - Low documented in this encounter [facility] 03-09-2024 Telephone encounter Note Patient calling regarding multiple respiratory symptoms that she has been experiencing for about 3 weeks. Appointment made for today for evaluation of the following sx's: -constant dry cough x 3 weeks -nasal drainage -intermittent mild headache -occ left ear discomfort over the past 2 days -occ chest tightness, not having now -occ diarrhea but states it may be her nerves -hot flashes-not new and is not worse than usual -denies SOB -denies fever or chills -reports has appetite, drinking 30-50 ounces fluids per day-trying to drink more -no N/V, dizziness, or body aches [facility] 03-09-2024 Miscellaneous Notes Patient calling regarding multiple respiratory symptoms that she has been experiencing for about 3 weeks. Appointment made for today for evaluation of the following sx's: -constant dry cough x 3 weeks -nasal drainage -intermittent mild headache -occ left ear discomfort over the past 2 days -occ chest tightness, not having now -occ diarrhea but states it may be her nerves -hot flashes-not new and is not worse than usual -denies SOB -denies fever or chills -reports has appetite, drinking 30-50 ounces fluids per day-trying to drink more -no N/V, dizziness, or body aches documented in this encounter [facility] 03-03-2024 History of Present illness Narrative CDM Telephonic Outreach Provider Action/FYI Spoke to pt, denies any CDM issues or concerns Asthma HTN knee surgery, , Healthy at home Goal To get relief of left knee pain to improve mobility and stability (hx of total left knee). 04/23/2024 9:00 AM Layla Bellamy PA-C Family Medicine [place] 6 month follow up Contacted for: Routine Telephonic Outreach Contact made with patient: Yes Patient identified by name and date of . Discussed care with patient Are you experiencing any new or worsening symptoms you need to talk about today? No Disease Specific Do you check your blood pressure at home? Yes, Enter readings: 140 systolic which would really be around 120's systolic because of BP monitor inaccuracy Do you have new or worsening shortness of breath with activity? No Do you have new or worsening cough? No Do you have new or worsening wheezing? No Do you need to use your rescue (Albuterol) inhaler or nebulizer more often than normal? No Based on gluer and slicer hand, the following disposition is advised: No symptoms or symptoms present, not severe. Routed to: No Action Needed DELMIS Education Provided this Outreach: No Pt states going to schedule appt with tree topper and crime specialist for f/u Steve Freedman, [place] March 03, 2024 2:00 PM documented in this encounter [facility] 02-18-2024 History of Present illness Narrative This is follow-up from his border. Please see previous notes. He had a knee replacement done by 1 my partner several years ago, complicated by infection, now status postplacement of articulating spacer by me approximately 2 years ago. Overall is doing well. Does have some instability and we have previously discussed revising her to a more constraining knee replacement system. Also had significant spine pathology. I have had her follow-up with one of our spine doctors who has her enrolled in physical therapy and she has improving in that standpoint. Her inflammatory markers are largely normal. She has not had a repeat aspirate of her knee. At this time, she reports being satisfied with how she is doing, and is decided she does not want to proceed with revision arthroplasty. The off remains on the table, she does have inherent instability with her spacer compared to a constrained revision knee. If she would like to proceed with revision down the line, she will simply need an aspiration ahead of time. All questions were answered today. Follow-up as needed. Felecia Calderon MD Orthopaedic Surgery documented in this encounter [facility] 02-04-2024 Telephone encounter Note Patient's request for medication is as follows: Requested Prescriptions Pending Prescriptions Disp Refills buPROPion XL (WELLBUTRIN XL) 150 mg 24 hr tablet 30 tablet 5 Sig: Take 1 tablet by mouth once daily. [facility] preferred pharmacy Prescription(s) as above. Please process accordingly. Steve Freedman RN [facility] 02-04-2024 Miscellaneous Notes Patient's request for medication is as follows: Requested Prescriptions Pending Prescriptions Disp Refills buPROPion XL (WELLBUTRIN XL) 150 mg 24 hr tablet 30 tablet 5 Sig: Take 1 tablet by mouth once daily. [facility] preferred pharmacy Prescription(s) as above. Please process accordingly. Steve Freedman RN documented in this encounter [facility] 02-04-2024 History of Present illness Narrative CDM Telephonic Outreach Provider Action/FYI Spoke to pt, denies any CDM issues or concerns Son is doing better and is out of the hospital Pt back to checking BP, systolic runs 160's, pt states it is her BP monitor because she took it to her last primary care appt and had it checked and it is 20-30 above what they got in the office and was told just to account for the difference Doing PT exercises for back which pt states orthopedic providers feels is cause of her left knee pain Pt asking for refill of Wellbutrin, will send to PCP in separate encounter Asthma HTN knee surgery, , Healthy at home Goal To get relief of left knee pain to improve mobility and stability (hx of total left knee). 02/18/2024 10:00 AM Felecia Calderon MD Orthopaedics left knee follow up Contacted for: Routine Telephonic Outreach Contact made with patient: Yes Patient identified by name and date of . Discussed care with patient Are you experiencing any new or worsening symptoms you need to talk about today? No Disease Specific Do you check your blood pressure at home? Yes, Enter readings: 160/80 's see FYI box Do you have new or worsening shortness of breath with activity? No Do you have new or worsening cough? No Do you have new or worsening wheezing? No Do you need to use your rescue (Albuterol) inhaler or nebulizer more often than normal? No Based on gluer and slicer hand, the following disposition is advised: No symptoms or symptoms present, not severe. Routed to: No Action Needed DELMIS Education Provided this Outreach: No Steve Freedman RN February 04, 2024 3:51 PM documented in this encounter [facility] 01-07-2024 History of Present illness Narrative CDM Telephonic Outreach Provider Action/FYI LVM on mobile # Asthma HTN knee surgery, , Healthy at home Goal To get relief of left knee pain to improve mobility and stability (hx of total left knee). 01/02/2024 10:20 AM Salma Medina PA-C [facility] [place] Radiculopathy, lumbar region 02/18/2024 10:00 AM Felecia Calderon MD Orthopaedics left knee follow up Contacted for: Routine Telephonic Outreach Contact made with patient: No, left message. Steve Freedman RN January 07, 2024 12:55 PM documented in this encounter [facility] 01-02-2024 History of Present illness Narrative Images from the original note were not included. [facility] [address] [address] 01/02/2024 ASSESSMENT AND PLAN: Assessment : Encounter Diagnosis ICD-10-CM 1. Radiculopathy, lumbar region M54.16 CONSULT TO PHYSICAL THERAPY XR LUMBAR MOTION 4V AP/LAT/ FLEX/EXT Discussion: Ms. Marrero is a pleasant 78-year-old female here for evaluation of her low back. She has left lower extremity radiating symptoms that she indicates started shortly after left knee replacement surgery in 2020. After lengthy course of treatment for her knee including current PT, there is question as to whether or not there might be a low back underlying cause. EXAM Highlights: She does have obvious gait alteration but is able to mobilize well. She does not use any assistive device during today's visit but indicates that she uses a cane for stabilization at home and when she is out shopping. She has diminished reflex over the LEFT patellar region and there is mild bilateral diminishment in strength at multiple motor groups as noted below. This is consistent with more of a deconditioning type weakness than a focal nerve-deficit type weakness. Lumbar motion is essentially normal for her age and does not reproduce leg symptoms. She does have some back pain across the lumbosacral junction involving multiple bony prominences Seated SLR's are negative bilaterally. IMAGING: We reviewed her [facility] chart and she does not have any low back films in the past few years. SUMMARY/PLAN: She will start with x-rays and we will add low back program specifically to her current physical therapy. She is doing PT outside of [facility] and knows that she will need to bring in her PT visit notes in order to eventually have further testing on the low back. Overall, there is a possibility that some of her LEFT leg symptoms are coming from the low back. I will plan to send her a MyChart note with results of the x-rays once they are complete. We discussed the mechanisms by which she could be having some low back pain as a SECONDARY issue from her ongoing LEFT knee problems. Plan : DIAGNOSTIC TESTING: -X-ray views will be obtained to better evaluate bony structures. -Dynamic plain radiographs of the Lumbar spine are ordered. REFERAL FOR SERVICES: -Physical therapy will be instituted. MEDICATIONS: ACTIVITY RECOMMENDATIONS: -The patient is encouraged to avoid bed rest and maintain normal activity. FOLLOW-UP: -The patient is instructed to return as needed. This document has been created with the use of voice recognition technology. It may contain inaccuracies: (e.g. misspellings, inaccurate syntax or word sense) that have escaped review. Time spent: 45 minutes today with this patient visit. This includes [id number] time, review of chart records regarding conservative care history, spine-pertinent imaging, and communication/care coordination with referring provider, problem-specific history-taking and counseling/education regarding treatment options. cc: Felecia Calderon [address] [id number] Results of consultation to be transmitted via electronic medical record for those providers who practice within [facility] or with access to app[employer]obi via [facility], or via letter. ###################################### ################################## CHIEF COMPLAINT: Lower back pain that radiates down the left LE to the level of the toes HPI: see Discussion above History of bowel or bladder dysfunction (not IBS or constipation): No History of previous spinal surgery: No History of spinal fracture: No Work Status: retired NON-OPERATIVE CARE: Medication(s): She has tried the following for relief of her symptoms: OTC Tylenol Physical Therapy: She has had physical therapy for her current symptoms. She is currently participating in physical therapy now. This is providing relief. Spinal Injections: She has not gotten prior spinal injections. Other: Chiropractice care Walking stick Current Outpatient Medications Medication Sig Dispense Refill metoprolol succinate ER (TOPROL XL) 25 mg 24 hr tablet Take 1 tablet by mouth two times a day. 180 tablet 3 folic acid 1 mg tablet Take 1 tablet by mouth once daily. 90 tablet 3 albuterol HFA (PROAIR HFA) 90 mcg/actuation inhaler Inhale 2 Puffs as instructed every 6 hours as needed. 18 g 11 buPROPion XL (WELLBUTRIN XL) 150 mg 24 hr tablet Take 1 tablet by mouth once daily. 30 tablet 5 rosuvastatin (CRESTOR) 5 mg tablet Take 1 tablet by mouth daily at bedtime. 90 tablet 3 lansoprazole (PREVACID) 30 mg capsule Take 1 capsule by mouth once daily. 90 capsule 3 meclizine (ANTIVERT) 25 mg tab Take 25 mg by mouth three times daily as needed. From [facility] clindamycin (CLEOCIN) 300 mg capsule Take 2 capsules by mouth one hour prior to dental cleaning/procedure 2 capsule 1 ondansetron orally disintegrating (ZOFRAN ODT) 8 mg disintegrating tablet Take 1 tablet by mouth every 8 hours as needed for nausea/vomiting. 20 tablet 0 ascorbic acid (VITAMIN C ORAL) Take 1 tablet by mouth once daily. 1000mg ondansetron (ZOFRAN) 4 mg tablet Take 1 tablet by mouth every 8 hours as needed. 9 tablet 3 CPAP polyethylene glycol 3350 (MIRALAX ORAL) Take 1 Tablespoonful by mouth as needed. acetaminophen (TYLENOL) 500 mg tablet Take 2 tablets by mouth every 8 hours as needed. fluticasone (FLONASE) 50 mcg/actuation nasal spray Use 1 [place] in each nostril once daily. vitamin B complex (B COMPLEX 1 ORAL) Take 1 tablet by mouth once daily. cholecalciferol (VITAMIN D3) 1,000 unit tab tablet Take 1,000 Units by mouth once daily. Current Facility-Administered Medications Medication Dose Route Frequency Provider Last Rate Last Admin perflutren lipid microspheres 1.3 mL in NaCl (PF) 0.9% 10 mL injection (DEFINITY) INTRAVENOUS DIRECTED PRN Beck Alejandra DO sodium chloride 0.9 % (flush) 10 mL (BD POSIFLUSH) 10 mL INTRAVENOUS DIRECTED PRN Beck Alejandra, DO Allergies: Phenergan [Promethazine Hcl], Hxllbwh-Xci-Grt Reductase Inhibitors, Adhesive, Breo Ellipta [Fluticasone Furoate-Vilanterol], Penicillins, Roxicodone [Oxycodone], Sulfa (Sulfonamide Antibiotics), and Vancomycin PAST MEDICAL HISTORY Diagnosis Date Adjustment disorder with depressed mood Anxiety state, unspecified Arthritis Asthma Coronary artery disease Diverticulosis of colon (without mention of hemorrhage) Hemorrhage of gastrointestinal tract, unspecified Iron deficiency anemia 06/29/2021 Localized osteoarthrosis not specified whether primary or secondary, lower leg Lung nodules Myalgia Obstructive sleep apnea Other and unspecified hyperlipidemia Seasonal allergies Shingles 01/2017 Urge urinary incontinence PAST SURGICAL HISTORY Procedure Laterality Date ABDOMINAL SURGERY HX BREAST CYST PUNCTURE/BC CHOLECYSTECTOMY 04/09/2000 lap choley COLONOSCOPY - DIAGNOSTIC 11/01/2000 COLONOSCOPY FLX DX W/COLLJ SPEC WHEN PFRMD 09/09/2008 Colonoscopy COLONOSCOPY FLX DX W/COLLJ SPEC WHEN PFRMD 07/01/2014 Colonoscopy COLONOSCOPY FLX DX W/COLLJ SPEC WHEN PFRMD 11/05/2019 Colonoscopy COLONOSCOPY FLX DX W/COLLJ SPEC WHEN PFRMD 06/13/2021 ECHOCARDIOGRAM 04/24/2021 echo: LV small, LV SF WNL, EF 65%, grade 1 LVDD. All wall motion score normal. RV size and RV SF WNL, RVSP 38 mmHg consistent with mild pulmonary hypertension. LA and RA normal in size, inferior vena cava normal. MV: 0-1+ MVR, TV normal, 0-1+ TR, AV normal, PV not seen, 0-1+ FL. Mid a sending aorta 3.2 cm. Echocardiogram pulmonary arteries not interrogated, no pericardial effusion ESOPHAGOGASTRODUODENOSCOPY TRANSORAL DIAGNOSTIC 11/05/2019 EGD ESOPHAGOGASTRODUODENOSCOPY TRANSORAL DIAGNOSTIC 06/13/2021 EYE SURGERY HX HEMORRHOIDECTOMY INTERNAL RUBBER BAND LIGATIONS 11/05/2019 PICC LINE INSERT/CONSULT 08/24/2021 SKIN BIOPSY HX TONSILLECTOMY HX TONSILLECTOMY PRIMARY/SECONDARY <AGE 11 TOTAL KNEE REPLACEMENT Social History Tobacco Use Smoking status: Never Smokeless tobacco: Never Tobacco comments: Lived with smokers in childhood home and until 2002. Vaping Use Vaping Use: Never used Substance Use Topics Alcohol use: No Drug use: No FAMILY HISTORY Problem Relation Age of Onset Ischemic Heart Disease Father PASSED FROM [place] Diabetes Father Ischemic Heart Disease Mother PASSED FROM [place] Coronary Artery Disease Brother stent Diabetes Sister Cancer Maternal Grandfather lung Cancer Paternal Grandfather lung REVIEW OF SYSTEMS: Constitutional: (-) Fever/Chills (+) Night Sweats (-) Weight Gain (-) Weight Loss Gastrointestinal: (-) Abdominal Pain (+) Diarrhea (+) Constipation (-) Heart Burn Cardiovascular: (-) Chest Pain (-) Palpitations (-) Lightheadedness (-) Hx Heart Surgery/Stent Respiratory: (+) Short of Breath (+) Cough (-) Snoring Neurologic: (-) Headache (-) Blurry Vision (-) Fainting Skin: (-) Rashes (-) Itching (-) Other Lesions Psychiatric: (+) Depression (+) Anxiety (-) Suicidal Thoughts Genitourinary: (+) Frequency (+) Urgency Endocrine: (-) Thyroid Disorder (-) Diabetes Hematologic: (-) Prolonged Bleeding (-) Easy Bruising ###################################### ###################################### ###################################### ############### PHYSICAL EXAM: Blood pressure 147/81, pulse 71, height 167.6 cm (5' 6), weight 72.4 kg (159 lb 9.8 oz), SpO2 99%. Body mass index is 25.76 kg/m . General: Patient is a(n) good historian. The patient appears approximately the recorded age and is sitting comfortably in the examining room. The patient is average height in stature and is average weight in appearance. This individual has difficulty arising from a sitting position and does have difficulty acquiring a full, upright position when standing. Station and Gait: favoring the left lower extremity The patient is able to but has difficulty in attempting to walk in a tandem gait. MENTAL STATUS EXAMINATION: The patient was neatly dressed and well groomed. The patient had excellent eye contact and rapport was easy to establish. The patient appeared to be alert and oriented in all spheres. The patient's overall medical judgment appeared to be good.The patient's motivation for treatment was judged based on today's encounter to be good. SPINE: Lumbar Lordosis: Normal Thoracic Kyphosis: Increased RANGE OF MOTION: Flexion: normal, as expected for age and weight Pain: No Extension: normal, as expected for age and weight Pain: Yes, axial pain Lateral Bending: Right normal, as expected for age and weight Pain: No Left normal, as expected for age and weight Pain: No PALPATION TENDERNESS: Mild tenderness at: lumbar region, posterior pelvis, and gluteal region Hyperesthesia present: No Regional symptoms present: No Increased pain with axial loading: No Distraction: Normal Pain responses: appropriate NEUROLOGIC EXAM: MOTOR: Walk on Toes: Right: Yes Left: Yes Walk on Heels: Right: Yes, but poorly Left: Yes, but poorly Requires verbal cues to minimize cog-wheel or give-way resistance: No Hip Flexor R: -4/5 L: -4/5 Hip Abductor R: 4/5 L: 4/5 Hip Adductor R: 4/5 L: 4/5 Knee Extension R: 4/5 L: -4/5 Foot Dorsiflexion R: 5/5 L: 5/5 Foot Plantar Flexion R: 5/5 L: 5/5 Ext Hallicus Longus R: 5/5 L: 5/5 Toe Extensors R: 5/5 L: 5/5 SENSATION to Light Touch: Lumbar: (non-dermatomal) numbness affecting the left foot, lower leg, and thigh. REFLEXES: Lower Extremity: Patella tendon: R: 2+ L: 1+ Achilles tendon: R: 0 L: 0 Clonus: R: 1-2 beats L: 1-2 beats Babinski Sign: Negative bilaterally. VASCULAR: Skin appearance: Right: Warm/pink Left: Warm/pink Capillary refill: Right: brisk Left: brisk ADDITIONAL MUSCULOSKELETAL EXAM: HIP/PELVIS EXAM: Tenderness over the PSIS: Right: No Left: Yes Greater Trochanteric pain: Right: No Left: Yes SPECIAL TESTS: Straight Leg Raise: negative bilaterally Contralateral Straight Leg Raise: negative bilaterally IMAGING STUDIES: See discussion above documented in this encounter [facility] 12-16-2023 Telephone encounter Note CATY: 07/25/2023n Amalfit[place]ty NOV: 07/27/2024 [place] [facility] 12-16-2023 Miscellaneous Notes CATY: 07/25/2023n [place]ty NOV: 07/27/2024 [place] documented in this encounter [facility] 12-10-2023 History of Present illness Narrative CDM Telephonic Outreach Provider Action/FYI Unable to leave vmm, vm box full Asthma HTN knee surgery, , Healthy at home Goal To get relief of left knee pain to improve mobility and stability (hx of total left knee). 01/02/2024 10:20 AM Salma Medina PA-C [facility] [place] Radiculopathy, lumbar region 02/18/2024 10:00 AM Felecia Calderon MD Orthopaedics left knee follow up Contacted for: Routine Telephonic Outreach Contact made with patient: No, unable to leave message. Will reattempt call Steve Freedman RN December 10, 2023 12:32 PM documented in this encounter [facility] 12-10-2023 History of Present illness Narrative PT ASSESSMENT - CASTING ROOM Cheryl presents for Application of brace. Applied Playmaker knee support to Left knee Patient has been instructed in Care of brace.. Paulo Ch documented in this encounter [facility] 12-10-2023 History of Present illness Narrative Orthopaedic Office Note: December 10, 2023 12:32 PM Cheryl Marrero 78 year old History: Cheryl is a 78-year-old woman who previously had a left knee replacement done by one of my partners, complicated by prosthetic joint infection, now over 2 years status post explant and placement of an articulating spacer with me. She is ambulating without an assist device. She does have discomfort at the knee. She also has lateral numbness down her thigh all the way to the bottom of her foot. Denies fevers or chills. Not on antibiotics. Subjective: See above Updated ROS: No changes Updated Exam: Left lower Extremity Healed incision No effusion Tender palpation medial lateral joint line Does have increased anterior posterior and varus valgus laxity compared to standard knee Updated Imaging: Well-appearing spacer with potentially some signs of loosening Assessment and Plan: I numbness discussion with Cheryl about her left knee today. Her spacer is functioning well for spacer, but is not as stable as a regular knee replacement. She has substantial spine difficulty, and she has numbness and tingling all the way to her foot. She should see a spine provider before making a decision about revision arthroplasty. In the interim we should get ESR, CRP, and an aspiration of the knee to make sure there is no residual infection. We discussed that surgery for the knee would be to place a more constraining, total stabilized knee replacement. This would likely improve some of her pain symptoms and give her more stability. It is unpredictable the exact extent of improvement she would have, and it is possible she would always have some residual pain from multiple knee operations. She will get the above workup and then follow-up in about 2 months. I have also given her a knee brace today to help with the stability. I spent a total of approximately 25 minutes on the date of the service which included preparing to see the patient, [id number] patient care, completing clinical documentation, obtaining and/or reviewing separately obtained history, performing a medically appropriate examination, counseling and educating the patient/family/caregiver, ordering medications, tests, or procedures, independently interpreting results (not separately reported), communicating results to the patient/family/caregiver, and care coordination (not separately reported). Felecia Calderon MD Orthopaedic Surgery documented in this encounter [facility] 12-10-2023 History of Present illness Narrative Radiology Service Progress Note PATIENT NAME: Cheryl Marrero DATE OF SERVICE: December 10, 2023 TIME: 10:49 AM PATIENT IDENTITY VERIFICATION COMPLETED USING TWO (2) IDENTIFIERS: Name and Date of confirmed by patient verbally. FALL SCREENING: Has the patient had 2 falls in the last year or 1 fall with injury or currently using an Ambulatory Assistive Device (Walker, Cane, Wheelchair, Crutches, etc.)? No PATIENT GENDER DATA: Female. status: : No status: NO. PATIENT RELEVANT IMPLANT DATA REVIEWED: Not Applicable PATIENT PRESENTS WITH AN IMPLANTABLE OR ATTACHED CUPOLA TAPPER: No RADIOLOGY DEPARTMENT: General X-ray: Exam(s) Completed: Lower Extremity X-Ray(s): Knee, AP / Lat / Merchant Left and Wt. Bearing PERIPHERAL IV DATA: Not applicable SIGNED BY: Syd Rachel December 10, 2023 10:49 AM documented in this encounter [facility] 12-10-2023 Note HNO ID: [id number] Author: GABRIEL MOSHER Tech Service: ? Author Type: Manager Drive Type: Progress Notes Filed: 12/10/2023 10:50 Note Text: Radiology Service Progress Note PATIENT NAME: Cheryl Marrero DATE OF SERVICE: December 10, 2023 TIME: 10:49 AM PATIENT IDENTITY VERIFICATION COMPLETED USING TWO (2) IDENTIFIERS: Name and Date of confirmed by patient verbally. FALL SCREENING: Has the patient had 2 falls in the last year or 1 fall with injury or currently using an Ambulatory Assistive Device (Walker, Cane, Wheelchair, Crutches, etc.)? No PATIENT GENDER DATA: Female. status: : No status: NO. PATIENT RELEVANT IMPLANT DATA REVIEWED: Not Applicable PATIENT PRESENTS WITH AN IMPLANTABLE OR ATTACHED CUPOLA TAPPER: No RADIOLOGY DEPARTMENT: General X-ray: Exam(s) Completed: Lower Extremity X-Ray(s): Knee, AP / Lat / Merchant Left and Wt. Bearing PERIPHERAL IV DATA: Not applicable SIGNED BY: Syd Rachel December 10, 2023 10:49 AM [facility] 11-14-2023 Miscellaneous Notes Faxed to [facility] outpt therapy Telephone on 11/14/23 CONSULT TO PHYSICAL THERAPY Toney Bellamy PA-C documented in this encounter [facility] 11-12-2023 History of Present illness Narrative CDM Telephonic Outreach Provider Action/FYI Spoke to pt, today was anniversary so feeling more down today, does have good support system Using a wood walking stick due to left knee issues, seeing ortho in November, hx of left knee surgery Denies any CDM issues or concerns, advised to use rescue inhaler prior to mu-ism service since 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 Discussed care with patient Are you experiencing any new or worsening symptoms you need to talk about today? No Disease Specific Do you check your blood pressure at home? No reminded to check a couple times a week Do you have new or worsening shortness of breath with activity? No Do you have new or worsening cough? No Do you have new or worsening wheezing? No Do you need to use your rescue (Albuterol) inhaler or nebulizer more often than normal? No Based on gluer and slicer hand, the following disposition is advised: No symptoms or symptoms present, not severe. Routed to: No Action Needed DELMIS Education Provided this Outreach: No Steve Freedman RN November 12, 2023 3:00 PM and Goals/Falls/ADL Update Contact made with patient: Yes Patient identified by name and date of . Discussed care with: patient Goal Setting I would like to take some time today to discuss your personal health goals. Yes, patient has goals. Capture the goal the patient wants to accomplish: To get relief of left knee pain so can be more mobile and steady. . Does the goal align with programs offered at the [facility]? Yes Chronic Disease Management patient goals yes: Exercise Most people know what to do to become healthier, yet struggle to put it into action on their own, It can be hard to maintain a healthy lifestyle, especially when life is so stressful. Can we connect you with a [facility] Health Fundraising Director to find a program that could help you meet your goals? No Steve Freedman RN November 12, 2023 3:01 PM documented in this encounter [facility] 11-07-2023 History of Present illness Narrative Radiology Service Progress Note PATIENT NAME: Cheryl Marrero DATE OF SERVICE: November 07, 2023 TIME: 8:57 AM PATIENT IDENTITY VERIFICATION COMPLETED USING TWO (2) IDENTIFIERS: Name and Date of confirmed by patient verbally. FALL SCREENING: Has the patient had 2 falls in the last year or 1 fall with injury or currently using an Ambulatory Assistive Device (Walker, Cane, Wheelchair, Crutches, etc.)? No PATIENT GENDER DATA: Female. status: : No status: NO. PATIENT RELEVANT IMPLANT DATA REVIEWED: Not Applicable PATIENT PRESENTS WITH AN IMPLANTABLE OR ATTACHED CUPOLA TAPPER: No RADIOLOGY DEPARTMENT: Bone Density PERIPHERAL IV DATA: Not applicable SIGNED BY: RT Cordell(R) November 07, 2023 8:57 AM documented in this encounter [facility] 10-22-2023 Instructions Razia Newman LPN - 10/22/2023 9:17 AM EST BONE MINERAL DENSITY PATIENT INSTRUCTIONS === Bone mineral density testing measures the amount of calcium in certain parts of your bones. This information determines how strong your bones are. The test is used to detect osteoporosis, a disease in which the bone's mineral content and density are low, increasing a person's risk of fractures. The lumbar spine (lower back) and the hip are the skeletal sites usually examined. For the test, remember that: 1. You cannot take this test if you are . 2. Eat a normal diet on the day of the test. 3. Take your medications as you normally would. 4. DO NOT take calcium supplements (such as Tums) for 24 hours before the test. 5. On the day of the test, leave valuables (jewelry or credit cards) at home. 6. The test should be performed prior to oral, rectal or IV contrast studies, or at least 7 days after any of these studies. For the test, you may be asked to wear a hospital gown. You will lie on your back, on a padded table, in a comfortable position. Generally, you can resume your usual activities immediately. documented in this encounter [facility] 10-22-2023 Miscellaneous Notes Rosy with radiology calling to as the provider to review the filed bone density order. Pt with no hx of organ transplant. Dx filed is Z78.0. with this dx a bone density screening would be dxa axial skeleton with TBS. Order pended. Pt is scheduled for 11/07/23. documented in this encounter [facility] 10-11-2023 History of Present illness Narrative POPULATION HEALTH NAVIGATION OUTREACH Action/FYI Spoke to patient and rescheduled 6 month follow up appt with pcp on 10-21-23. Patient Identified by Name and : YES, via phone Outreach Outcome/Action Spoke to patient / parent / legal guardian: Patient scheduled Did you use a PCP flex slot to schedule this appointment? No Reason for Outreach [facility] Payer: Payor: MEDICARE / Plan: MEDICARE A AND B / Product Type: Medicare / Care Gap Reviewed:: Follow-up appointment Reminder: Reminder note to check Health Maintenance for items below Health Maintenance items due: RSV Vaccine(1 - 1-dose 60+ series) Never done Shingrix Vaccine(2 of 3) due on 03/13/2010 DTaP,Tdap,Td Vaccine(1 - Tdap) due on 01/06/2015 Influenza Vaccine(1) due on 04/26/2023 Covid-19 Vaccine( season) due on 04/26/2023 Advance Directive Discussion due on 08/26/2023 Navigation [facility] October 11, 2023 2:26 PM CDM Telephonic Outreach Provider Toi/LATOSHA Spoke to pt, denies any CDM issue or concerns Patient 6 month f/u appt with PCP on 10/07 was canceled by the office, pt needs to be rescheduled, will forward to Navigator Navigator please call pt to re-schedule 6 month f/u appt with PCP that was canceled by PCP office Asthma HTN knee surgery, , Healthy at home Needs 6 month f/u appt with PCP office Contacted for: Routine Telephonic Outreach Contact made with patient: Yes Patient identified by name and date of . Discussed care with patient Are you experiencing any new or worsening symptoms you need to talk about today? No Disease Specific Do you check your blood pressure at home? No reminded to check a couple times a week Do you have new or worsening shortness of breath with activity? No Based on gluer and slicer hand, the following disposition is advised: No symptoms or symptoms present, not severe. Routed to: Navigation Team: Annual Wellness visit 6 month f/u with PCP, was originally scheduled for 10/07/23 but was canceled by office DELMIS Education Provided this Outreach: No Steve Freedman RN October 11, 2023 2:20 PM documented in this encounter [facility] 08-23-2023 History of Present illness Narrative Radiology Service Progress Note PATIENT NAME: Cheryl Mrarero DATE OF SERVICE: August 23, 2023 TIME: 1:22 PM PATIENT IDENTITY VERIFICATION COMPLETED USING TWO (2) IDENTIFIERS: Name and Date of confirmed by patient verbally. FALL SCREENING: Has the patient had 2 falls in the last year or 1 fall with injury or currently using an Ambulatory Assistive Device (Walker, Cane, Wheelchair, Crutches, etc.)? No PATIENT GENDER DATA: Female. status: : No status: NO. PATIENT RELEVANT IMPLANT DATA REVIEWED: Yes RADIOLOGY DEPARTMENT: General X-ray: Exam(s) Completed: Chest X-Ray PERIPHERAL IV DATA: Not applicable SIGNED BY: RT Eliceo(R) August 23, 2023 1:22 PM documented in this encounter [facility] 07-25-2023 History of Present illness Narrative Images from the original note were not included. [facility] [place] Department of Cardiovascular Medicine SECTION OF CLINICAL CARDIOLOGY OUTPATIENT VISIT DATE 07/25/23 OUTPATIENT VISIT TYPE ESTABLISHED CATY 01/22/23 PRIMARY CARE PHYSICIAN: Layla Bellamy [address] [place] [address] CHIEF COMPLAINT: Follow up HISTORY OF PRESENT ILLNESS: Ms. Marrero is a 78 year old female with history of mitral regurgitation, HTN, HLD, RAVIN, mild pHTN, asthma, PIO, GERD, and IBS who presents today for a cardiovascular medicine follow-up visit. She is doing well from a cardiovascular standpoint. She admits that she has not been using her CPAP since her hospitalization at the beginning of the year as she got out of the habit of doing so. She has not been monitoring her heart rate or blood pressure daily at home. She is not participating in daily aerobic exercise. She denies any shortness of breath, chest pain, palpitations, dizziness, lightheadedness, lower extremity edema, PND, orthopnea, presyncope, syncope, or claudication symptoms. 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 She has since recovered and has been doing well. Her is currently in an assisted living facility which keeps her busy visiting him multiple days per week. Subjective PAST MEDICAL HISTORY Diagnosis Date Adjustment disorder with depressed mood Anxiety state, unspecified Arthritis Asthma Coronary artery disease Diverticulosis of colon (without mention of hemorrhage) Hemorrhage of gastrointestinal tract, unspecified Iron deficiency anemia 06/29/2021 Localized osteoarthrosis not specified whether primary or secondary, lower leg Lung nodules Myalgia Obstructive sleep apnea Other and unspecified hyperlipidemia Seasonal allergies Shingles 01/2017 Urge urinary incontinence PAST SURGICAL HISTORY Procedure Laterality Date ABDOMINAL SURGERY HX BREAST CYST PUNCTURE/BC CHOLECYSTECTOMY 04/09/2000 lap choley COLONOSCOPY - DIAGNOSTIC 11/01/2000 COLONOSCOPY FLX DX W/COLLJ SPEC WHEN PFRMD 09/09/2008 Colonoscopy COLONOSCOPY FLX DX W/COLLJ SPEC WHEN PFRMD 07/01/2014 Colonoscopy COLONOSCOPY FLX DX W/COLLJ SPEC WHEN PFRMD 11/05/2019 Colonoscopy COLONOSCOPY FLX DX W/COLLJ SPEC WHEN PFRMD 06/13/2021 ECHOCARDIOGRAM 04/24/2021 echo: LV small, LV SF WNL, EF 65%, grade 1 LVDD. All wall motion score normal. RV size and RV SF WNL, RVSP 38 mmHg consistent with mild pulmonary hypertension. LA and RA normal in size, inferior vena cava normal. MV: 0-1+ MVR, TV normal, 0-1+ TR, AV normal, PV not seen, 0-1+ FL. Mid a sending aorta 3.2 cm. Echocardiogram pulmonary arteries not interrogated, no pericardial effusion ESOPHAGOGASTRODUODENOSCOPY TRANSORAL DIAGNOSTIC 11/05/2019 EGD ESOPHAGOGASTRODUODENOSCOPY TRANSORAL DIAGNOSTIC 06/13/2021 EYE SURGERY HX HEMORRHOIDECTOMY INTERNAL RUBBER BAND LIGATIONS 11/05/2019 PICC LINE INSERT/CONSULT 08/24/2021 SKIN BIOPSY HX TONSILLECTOMY HX TONSILLECTOMY PRIMARY/SECONDARY <AGE 11 TOTAL KNEE REPLACEMENT Social History Tobacco Use Smoking status: Never Smokeless tobacco: Never Tobacco comments: Lived with smokers in childhood home and until 2002. Vaping Use Vaping Use: Never used Substance Use Topics Alcohol use: No Drug use: No FAMILY HISTORY Problem Relation Age of Onset Ischemic Heart Disease Father P[place]ED FROM [place] Diabetes Father Ischemic Heart Disease Mother PASSED FROM [place] Coronary Artery Disease Brother stent Diabetes Sister Cancer Maternal Grandfather lung Cancer Paternal Grandfather lung ALLERGIES: ALLERGIES Allergen Reactions Phenergan [Prometha* Mental Status Change, Intolerance Hhxjddf-Ypd-Nml Red* Other: See Comments Elevated liver enzymes in hospital, statins stopped. Adhesive Rash Breo Ellipta [Fluti* Other: See Comments Hoarseness/ Shortness of breath Penicillins Other: See Comments Local reaction at site of injection Roxicodone [Oxycodo* Intolerance Severe nausea and lightheadness Sulfa (Sulfonamide * Vancomycin Other: See Comments redness MEDICATIONS: buPROPion XL (WELLBUTRIN XL) 150 mg 24 hr tablet^Take 1 tablet by mouth once daily.^Disp: 30 tablet^Rfl: 5 rosuvastatin (CRESTOR) 5 mg tablet^Take 1 tablet by mouth daily at bedtime.^Disp: 90 tablet^Rfl: 3 metoprolol succinate ER (TOPROL XL) 25 mg 24 hr tablet^Take 1 tablet by mouth two times a day.^Disp: 180 tablet^Rfl: 3 metoprolol succinate ER (TOPROL XL) 25 mg 24 hr tablet^take 1 tablet by mouth twice a day^Disp: 180 tablet^Rfl: 3 lansoprazole (PREVACID) 30 mg capsule^Take 1 capsule by mouth once daily.^Disp: 90 capsule^Rfl: 3 meclizine (ANTIVERT) 25 mg tab^Take 25 mg by mouth three times daily as needed. From [facility] er^Disp: ^Rfl: meloxicam (MOBIC) 7.5 mg tablet^Take 1 tablet by mouth once daily.^Disp: 30 tablet^Rfl: 0 clindamycin (CLEOCIN) 300 mg capsule^Take 2 capsules by mouth one hour prior to dental cleaning/procedure^Disp: 2 capsule^Rfl: 1 ondansetron orally disintegrating (ZOFRAN ODT) 8 mg disintegrating tablet^Take 1 tablet by mouth every 8 hours as needed for nausea/vomiting.^Disp: 20 tablet^Rfl: 0 folic acid 1 mg tablet^Take 1 tablet by mouth once daily.^Disp: 90 tablet^Rfl: 3 ascorbic acid (VITAMIN C ORAL)^Take 1 tablet by mouth once daily. 1000mg^Disp: ^Rfl: ondansetron (ZOFRAN) 4 mg tablet^Take 1 tablet by mouth every 8 hours as needed.^Disp: 9 tablet^Rfl: 3 polyethylene glycol 3350 (MIRALAX ORAL)^Take 1 Tablespoonful by mouth as needed. ^Disp: ^Rfl: acetaminophen (TYLENOL) 500 mg tablet^Take 2 tablets by mouth every 8 hours as needed.^Disp: ^Rfl: fluticasone (FLONASE) 50 mcg/actuation nasal spray^Use 1 [place] in each nostril once daily.^Disp: ^Rfl: albuterol HFA (PROAIR HFA) 90 mcg/actuation inhaler^Inhale 2 Puffs as instructed every 6 hours as needed.^Disp: 18 g^Rfl: 11 vitamin B complex (B COMPLEX 1 ORAL)^Take 1 tablet by mouth once daily. ^Disp: ^Rfl: cholecalciferol (VITAMIN D3) 1,000 unit tab tablet^Take 1,000 Units by mouth once daily.^Disp: ^Rfl: CPAP^^Disp: ^Rfl: REVIEW OF SYSTEMS: CARD: See HPI GENERAL: Negative for: Weight loss or gain, Fever and/or Chills HEENT: Negative for: Headache, Impaired Vision, Glasses, Hearing Impairment, Ringing in Ears, Nosebleeds, Bleeding Gums NECK: Negative for: Swelling, Pain, Stiffness RESPIRATORY: Negative for: Cough, Blood in Sputum, Shortness of breath, Wheezing, Apnea GASTROINTESTINAL: Negative for: Nausea, Vomiting, Diarrhea, Blood in stool, or Dark black stools MUSCULOSKELETAL: +L knee pain NEUROLOGIC: Negative for: focal numbness/weakness, headaches, visual changes, ataxia, speech/language loss SKIN: Negative for: Rashes, Itching HEMATOLOGICAL/LYMPHATIC: Negative for: Easy bruising , Easy bleeding ENDOCRINE: Negative for: Heat or cold intolerance, Excessive sweating, Frequent urination, Frequent thirst Objective PHYSICAL EXAMINATION: BP 130/62 Pulse 75 Wt 71.2 kg (156 lb 15.5 oz) SpO2 99% BMI 26.12 kg/m General: Well appearing, in no acute distress. Neck: No jugular venous distention, no carotid bruits, carotids have a normal upstroke. Lungs: Clear to auscultation bilaterally, no wheezing or rhonchi. Heart: Regular rhythm, S1, S2 normal, no S3, no S4, no heaves, no rub and 1/6 PONCE LSB. No peripheral edema . Grade 2/4 distal pulses bilaterally. Abdomen: Soft, nontender, bowel sounds normal, no bruits. Neuro: Oriented to person, place and time, alert, cooperative, gait coordinated. CARDIOVASCULAR MEDICINE TESTING: Last ECHO Result Conclusion ECHO Collected: 03/18/2023 2:09 PM (Final result) Impression: CONCLUSIONS: - Exam indication: Routine surveillance of mild valvular regurgitation (>3yrs) - The left ventricle is normal in size. Left ventricular systolic function is normal. EF = 63 5% (2D biplane) Grade I left ventricular diastolic dysfunction. - The right ventricle is normal in size. Right ventricular systolic function is normal. - There are no significant valvular abnormalities. - Exam was compared with the prior echocardiographic exam performed on 04/24/2021, no significant change. * * * Final * * * Echocardiogram 04/24/2021: - The left ventricle is small. Left ventricular systolic function is normal. EF = 65 5% (2D biplane) Grade I left ventricular diastolic dysfunction. - The right ventricle is normal in size. Right ventricular systolic function is normal. Pharm MPI stress 06/05/2019: 1. SPECT Perfusion Study: Normal. 2. There is no scintigraphic evidence for inducible ischemia. 3. No evidence of scarred myocardium. 4. Functional capacity N/A (pharmacological). 5. Left ventricle is normal in size. The left ventricle systolic function is normal. 6. Right ventricle is normal in size. 7. This is a low risk scan. LVEF % 74 Electrocardiogram 07/04/22: Normal sinus rhythm at 68 bpm I have personally reviewed the Electrocardiogram. PLAN AND RECOMMENDATIONS: Mitral regurgitation - Echo 12/2017 with moderate (2+) MR - Echo 05/2019 with mild (1+) MR - Echo 03/2021 with trace MR - Emphasis on afterload reduction - Periodic echocardiogram monitoring Essential hypertension - Optimal control on Metoprolol Succinate 25 mg BID - Encouraged dietary sodium restriction/DASH diet - Reviewed risks of HTN and principles of treatment - Goal of BP <130/80 Mixed hyperlipidemia - Currently on Rosuvastatin 5 mg daily - Last lipid panel 12/2021 with LDL 64 - Normal LFTs 12/2021 - History of liver dysfunction on statin. Able to tolerate Crestor Mild pulmonary hypertension - Most recent echo 03/2021 with RVSP 38 mmHg - Known RAVIN and asthma - Periodic echocardiogram monitoring - CPAP compliance encouraged Obstructive sleep apnea - Noncompliant on CPAP - Follows with pulmonary, Dr. Mendiola in [place] - CPAP compliance encouraged CONCLUSION: Patient presents today for follow-up an appears to be doing well from a cardiovascular standpoint. Her mitral regurgitation was stable on most recent echocardiogram. Her heart rate, blood pressure, and cholesterol profile remain under favorable control. She does admit that she has not been using her CPAP consistently. She does have mild pulmonary hypertension on her echo and the importance of CPAP compliance given her RAVIN and she is agreeable to restart her CPAP therapy at this time. It appears that her home BP machine is reading higher than it should be. Thank you for allowing me the privilege of participating in the care of your patient. Please do not hesitate to contact me if there are any questions. Beck Alejandra DO, FACC, FCCP, FACOI This note was partially generated using [employer] voice recognition system and may contain errors related to that system including grammar, punctuation, spelling, and words that may be inappropriate documented in this encounter [facility] 07-01-2023 History of Present illness Narrative This note was created using [employer]. Subjective Cheryl Marrero is a 78 year old female. 78 year old male with PMH hyperlipidemia, pulmonary HTN, asthma, RAVIN, GERD and IBS presents for illness. Acute onset one week ago +sinus congestion +nasal congestion 2 days ago started with left ear pain Has progressively worsened Denies cough Denies fever or chills Denies body aches or fatigue Denies tobacco usage. The history is provided by the patient. No speech language assistant was used. Ear Pain This is a new problem. The current episode started in the past 7 days. The problem occurs constantly. The problem has been gradually worsening. Associated symptoms include congestion and headaches. Pertinent negatives include no abdominal pain, anorexia, arthralgias, change in bowel habit, chest pain, chills, coughing, diaphoresis, fatigue, fever, joint swelling, myalgias, nausea, neck pain, numbness, rash, sore throat, swollen glands, urinary symptoms, vertigo, visual change, vomiting or weakness. Nothing aggravates the symptoms. She has tried nothing for the symptoms. The treatment provided no relief. PAST MEDICAL HISTORY Diagnosis Date Adjustment disorder with depressed mood Anxiety state, unspecified Arthritis Asthma Coronary artery disease Diverticulosis of colon (without mention of hemorrhage) Hemorrhage of gastrointestinal tract, unspecified Iron deficiency anemia 06/29/2021 Localized osteoarthrosis not specified whether primary or secondary, lower leg Lung nodules Myalgia Obstructive sleep apnea Other and unspecified hyperlipidemia Seasonal allergies Shingles 01/2017 Urge urinary incontinence PAST SURGICAL HISTORY Procedure Laterality Date ABDOMINAL SURGERY HX BREAST CYST PUNCTURE/BC CHOLECYSTECTOMY 04/09/2000 lap choley COLONOSCOPY - DIAGNOSTIC 11/01/2000 COLONOSCOPY FLX DX W/COLLJ SPEC WHEN PFRMD 09/09/2008 Colonoscopy COLONOSCOPY FLX DX W/COLLJ SPEC WHEN PFRMD 07/01/2014 Colonoscopy COLONOSCOPY FLX DX W/COLLJ SPEC WHEN PFRMD 11/05/2019 Colonoscopy COLONOSCOPY FLX DX W/COLLJ SPEC WHEN PFRMD 06/13/2021 ECHOCARDIOGRAM 04/24/2021 echo: LV small, LV SF WNL, EF 65%, grade 1 LVDD. All wall motion score normal. RV size and RV SF WNL, RVSP 38 mmHg consistent with mild pulmonary hypertension. LA and RA normal in size, inferior vena cava normal. MV: 0-1+ MVR, TV normal, 0-1+ TR, AV normal, PV not seen, 0-1+ FL. Mid a sending aorta 3.2 cm. Echocardiogram pulmonary arteries not interrogated, no pericardial effusion ESOPHAGOGASTRODUODENOSCOPY TRANSORAL DIAGNOSTIC 11/05/2019 EGD ESOPHAGOGASTRODUODENOSCOPY TRANSORAL DIAGNOSTIC 06/13/2021 EYE SURGERY HX HEMORRHOIDECTOMY INTERNAL RUBBER BAND LIGATIONS 11/05/2019 PICC LINE INSERT/CONSULT 08/24/2021 SKIN BIOPSY HX TONSILLECTOMY HX TONSILLECTOMY PRIMARY/SECONDARY <AGE 11 TOTAL KNEE REPLACEMENT ALLERGIES Phenergan [Promethazine Hcl], Xsjielm-Fln-Cjm Reductase Inhibitors, Adhesive, Breo Ellipta [Fluticasone Furoate-Vilanterol], Penicillins, Roxicodone [Oxycodone], Sulfa (Sulfonamide Antibiotics), and Vancomycin MEDICATIONS rosuvastatin (CRESTOR) 5 mg tablet^Take 1 tablet by mouth daily at bedtime.^Disp: 90 tablet^Rfl: 3 metoprolol succinate ER (TOPROL XL) 25 mg 24 hr tablet^Take 1 tablet by mouth two times a day.^Disp: 180 tablet^Rfl: 3 metoprolol succinate ER (TOPROL XL) 25 mg 24 hr tablet^take 1 tablet by mouth twice a day^Disp: 180 tablet^Rfl: 3 lansoprazole (PREVACID) 30 mg capsule^Take 1 capsule by mouth once daily.^Disp: 90 capsule^Rfl: 3 meclizine (ANTIVERT) 25 mg tab^Take 25 mg by mouth three times daily as needed. From [facility]^Disp: ^Rfl: meloxicam (MOBIC) 7.5 mg tablet^Take 1 tablet by mouth once daily.^Disp: 30 tablet^Rfl: 0 buPROPion XL (WELLBUTRIN XL) 150 mg 24 hr tablet^Take 1 tablet by mouth once daily.^Disp: 30 tablet^Rfl: 5 clindamycin (CLEOCIN) 300 mg capsule^Take 2 capsules by mouth one hour prior to dental cleaning/procedure^Disp: 2 capsule^Rfl: 1 ondansetron orally disintegrating (ZOFRAN ODT) 8 mg disintegrating tablet^Take 1 tablet by mouth every 8 hours as needed for nausea/vomiting.^Disp: 20 tablet^Rfl: 0 folic acid 1 mg tablet^Take 1 tablet by mouth once daily.^Disp: 90 tablet^Rfl: 3 ascorbic acid (VITAMIN C ORAL)^Take 1 tablet by mouth once daily. 1000mg^Disp: ^Rfl: ondansetron (ZOFRAN) 4 mg tablet^Take 1 tablet by mouth every 8 hours as needed.^Disp: 9 tablet^Rfl: 3 polyethylene glycol 3350 (MIRALAX ORAL)^Take 1 Tablespoonful by mouth as needed. ^Disp: ^Rfl: acetaminophen (TYLENOL) 500 mg tablet^Take 2 tablets by mouth every 8 hours as needed.^Disp: ^Rfl: fluticasone (FLONASE) 50 mcg/actuation nasal spray^Use 1 [place] in each nostril once daily.^Disp: ^Rfl: albuterol HFA (PROAIR HFA) 90 mcg/actuation inhaler^Inhale 2 Puffs as instructed every 6 hours as needed.^Disp: 18 g^Rfl: 11 vitamin B complex (B COMPLEX 1 ORAL)^Take 1 tablet by mouth once daily. ^Disp: ^Rfl: cholecalciferol (VITAMIN D3) 1,000 unit tab tablet^Take 1,000 Units by mouth once daily.^Disp: ^Rfl: doxycycline monohydrate 100 mg tablet^Take 1 tablet by mouth two times a day for 7 days.^Disp: 14 tablet^Rfl: 0 CPAP^^Disp: ^Rfl: FAMILY HISTORY Problem Relation Age of Onset Ischemic Heart Disease Father PASSED FROM [place] Diabetes Father Ischemic Heart Disease Mother P[place]ED FROM [place] Coronary Artery Disease Brother stent Diabetes Sister Cancer Maternal Grandfather lung Cancer Paternal Grandfather lung Social History Tobacco Use Smoking status: Never Smokeless tobacco: Never Tobacco comments: Lived with smokers in childhood home and until 2002. Vaping Use Vaping Use: Never used Substance Use Topics Alcohol use: No Drug use: No Review of Systems Constitutional: Negative for chills, diaphoresis, fatigue and fever. HENT: Positive for congestion and ear pain. Negative for ear discharge, rhinorrhea, sinus pressure, sinus pain and sore throat. Eyes: Negative for photophobia, pain, discharge, redness, itching and visual disturbance. Respiratory: Negative for apnea, cough, choking and chest tightness. Cardiovascular: Negative for chest pain, palpitations and leg swelling. Gastrointestinal: Negative for abdominal pain, anorexia, change in bowel habit, constipation, diarrhea, nausea and vomiting. Musculoskeletal: Negative for arthralgias, joint swelling, myalgias and neck pain. Skin: Negative for color change, pallor and rash. Allergic/Immunologic: Negative for environmental allergies, food allergies and immunocompromised state. Neurological: Positive for headaches. Negative for dizziness, vertigo, facial asymmetry, weakness and numbness. Hematological: Negative for adenopathy. Does not bruise/bleed easily. Psychiatric/Behavioral: Negative for agitation and behavioral problems. Objective BP 124/80 Pulse 74 Temp 36.1 C (96.9 F) Resp 16 Wt 71.7 kg (158 lb) SpO2 96% BMI 26.29 kg/m Physical Exam Vitals and nursing note reviewed. Constitutional: General: She is not in acute distress. Appearance: Normal appearance. She is normal weight. She is not ill-appearing, toxic-appearing or diaphoretic. HENT: Head: Normocephalic and atraumatic. Comments: +frontal sinus pressure +maxillary sinus pressure Right Ear: Ear canal and external ear normal. There is impacted cerumen (partially impacted). Left Ear: Ear canal and external ear normal. Ears: Comments: Right TM erythematous and slightly bulging Nose: Congestion present. No rhinorrhea. Mouth/Throat: Mouth: Mucous membranes are moist. Pharynx: Posterior oropharyngeal erythema present. No oropharyngeal exudate. Eyes: General: Right eye: No discharge. Left eye: No discharge. Extraocular Movements: Extraocular movements intact. Conjunctiva/sclera: Conjunctivae normal. Pupils: Pupils are equal, round, and reactive to light. Cardiovascular: Rate and Rhythm: Normal rate and regular rhythm. Pulses: Normal pulses. Heart sounds: Normal heart sounds. No murmur heard. No friction rub. Pulmonary: Effort: Pulmonary effort is normal. No respiratory distress. Breath sounds: Normal breath sounds. No stridor. No wheezing, rhonchi or rales. Chest: Chest wall: No tenderness. Abdominal: General: Abdomen is flat. There is no distension. Palpations: Abdomen is soft. There is no mass. Tenderness: There is no abdominal tenderness. There is no right CVA tenderness, left CVA tenderness, guarding or rebound. Hernia: No hernia is present. Musculoskeletal: General: No swelling, tenderness, deformity or signs of injury. Normal range of motion. Cervical back: Normal range of motion and neck supple. No rigidity. Right lower leg: No edema. Left lower leg: No edema. Lymphadenopathy: Cervical: Cervical adenopathy present. Skin: General: Skin is warm and dry. Coloration: Skin is not jaundiced or pale. Findings: No bruising, erythema, lesion or rash. Neurological: General: No focal deficit present. Mental Status: She is alert and oriented to person, place, and time. Cranial Nerves: No cranial nerve deficit. Sensory: No sensory deficit. Motor: No weakness. Coordination: Coordination normal. Gait: Gait normal. Psychiatric: Mood and Affect: Mood normal. Behavior: Behavior normal. Thought Content: Thought content normal. Judgment: Judgment normal. Assessment and Plan ASSESSMENT/PLAN: 1. Acute otitis media, right - ICD9: 382.9, ICD10: H66.91 (primary diagnosis) - Will begin treatment with as per antibiotic as written, see orders - The patient should also be given OTC cough and cold meds as needed, warm salt water gargles, throat lozenges and/or OTC throat spray as needed, and nasal saline gtts and suction prn for the first 5-7 days of treatment. - Supportive care with plenty of fluids, rest, and analgesia prn. - Follow up in 3-5 days if symptoms persist or worsen. 2. Rhinosinusitis - ICD9: 473.9, ICD10: J32.9 - The patient should also be given OTC cough and cold meds as needed, warm salt water gargles, throat lozenges and/or OTC throat spray as needed, and nasal saline gtts and suction prn for the first 5-7 days of treatment. - Supportive care with plenty of fluids, rest, and analgesia prn. - Follow up in 3-5 days if symptoms persist or worsen. Virginia Grimes APRN.ROOF BOLTER OPERATOR documented in this encounter [facility] 06-10-2023 Miscellaneous Notes CATY 01/22/23 [place] NOV 07/25/23 Amalf[place]ano documented in this encounter [facility] 06-10-2023 Miscellaneous Notes CATY 01/22/23 Amalf[place] NOV 07/25/23 Amalf[place]ano documented in this encounter [facility] 05-31-2023 History of Present illness Narrative CDM Telephonic Outreach Provider Action/FYI Spoke to pt, no CDM issues or concerns Pt states going to call office to schedule flu and covid vaccines Remind to take BP machine to 07/25 appt to check accuracy Asthma HTN knee surgery, in assisted living 07/25 card appt Contacted for: Routine Telephonic Outreach Contact made with patient: Yes Patient identified by name and date of . Discussed care with patient Are you experiencing any new or worsening symptoms you need to talk about today? No Disease Specific Do you check your blood pressure at home? Yes, Enter readings: <[id number] Do you have new or worsening shortness of breath with activity? No Do you have new or worsening cough? No Do you have new or worsening wheezing? No Do you need to use your rescue (Albuterol) inhaler or nebulizer more often than normal? No Based on gluer and slicer hand, the following disposition is advised: No symptoms or symptoms present, not severe. Routed to: No Action Needed DELMIS Education Provided this Outreach: No Steve Freedman RN May 31, 2023 11:32 AM documented in this encounter [facility] 05-02-2023 History of Present illness Narrative CDM Telephonic Outreach Provider Toi/LATOSHA Spoke to pt, denies any CDM issues or concerns States has not checked BP in past couple days but was 150's80's last time she checked Pt denies any new symptoms Pt states she questions the accuracy of BP machine because at doctor appts BP is always good but home BP is always at least 20 points higher Advised pt to take BP machine to doctor appts and have checked also advised can do a comparison BP with a drug store machine Asthma HTN knee surgery, in assisted living 07/25 card appt Contacted for: Routine Telephonic Outreach Contact made with patient: Yes Patient identified by name and date of . Discussed care with patient Are you experiencing any new or worsening symptoms you need to talk about today? No Disease Specific Do you check your blood pressure at home? Yes, Enter readings: see FYI box Do you have new or worsening shortness of breath with activity? No Do you have new or worsening cough? No Do you have new or worsening wheezing? No Do you need to use your rescue (Albuterol) inhaler or nebulizer more often than normal? No Based on gluer and slicer hand, the following disposition is advised: No symptoms or symptoms present, not severe. Routed to: No Action Needed DELMIS Education Provided this Outreach: No Steve Freedman RN May 02, 2023 3:41 PM documented in this encounter [facility] 04-17-2023 History of Present illness Narrative Radiology Service Progress Note PATIENT NAME: Cheryl Marrero DATE OF SERVICE: April 17, 2023 TIME: 9:24 AM PATIENT IDENTITY VERIFICATION COMPLETED USING TWO (2) IDENTIFIERS: Name and Date of confirmed by patient verbally. FALL SCREENING: Has the patient had 2 falls in the last year or 1 fall with injury or currently using an Ambulatory Assistive Device (Walker, Cane, Wheelchair, Crutches, etc.)? No PATIENT GENDER DATA: Female. status: : No status: NO. PATIENT RELEVANT IMPLANT DATA REVIEWED: Not Applicable RADIOLOGY DEPARTMENT: Mammography PERIPHERAL IV DATA: Not applicable SIGNED BY: RT Kaveh(R) April 17, 2023 9:24 AM documented in this encounter [facility] 04-08-2023 Miscellaneous Notes Patient phones requesting refills as follows: Requested Prescriptions Pending Prescriptions Disp Refills lansoprazole (PREVACID) 30 mg capsule 90 capsule 3 Sig: Take 1 capsule by mouth once daily. CATY 04/04/23 NOV 10/07/23 Please review and advise. Stanton Arenas LPN documented in this encounter [facility] 04-04-2023 History of Present illness Narrative 77 year old female with c/o here for follow up Doing well. Adjustment reaction with anxiety and depression (primary encounter diagnosis) Depression, recurrent (hcc) Current medications: Bupropion XL 150 mg daily Bupropion 5 mg 3 times a day as needed: stopped due to lack of need Most of the time feels Hard time handling too many situations at once. Situation with son sets her off. Mood is good. Still in counseling twice a month: suggests she get a puppy. 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 Beck Alejandra 01/22/2023 last cardiology visit:: Ordered echo for follow-up encourage CPAP use due to mild pulmonary hypertension Interval cardiac history: Stable Data: 03/18/2023 echocardiogram for follow-up on mild AVr: LV size and LVSF WNL L, EF 54%. Global LV myocardial strain is normal. Grade 1 left ventricular diastolic dysfunction RV size and RV SF WNL, eRVSP 32 mmHg, RAP 3 mmHg LA and RA size normal No significant valvular, specifically no aortic valve regurgitation, peak gradient 9 mmHg PV with 0-1+ PVR Aorta size WNL, no pericardial effusion. There is an epicardial fat pad. 04/24/21 echo: LV size is small, LV SF WNL, EF 65%, grade 1 LVDD, no abnormal wall motion. RV: Size and RV SF WNL. RVSP 38 mmHg (mild PHTN), RAP 8 mmHg LA and RA size WNL, IVC normal movement No significant valvular disease. Great vessels are within normal limits. 06/05/2019 echo: 1+ MVR Current meds: Metoprolol succinate ER 25 mg twice daily Rosuvastatin 5mg daily HS Use of NTG: No Chest pain, arm, jaw pain, neck, or upper back pain suggestive of angina: No. SOB: No, notes doesn't have breath to sing Dyspnea with exertion: No orthopnea: No Cough: No racing or irregular heartbeats: No palpitations: No syncopal sx: No Headache: No Unexplainable fatigue No Leg swelling: No Nausea: No diaphoresis: No Heartburn: No Claudication: No. Notes numbness bottoms of feet when standing Smoking: No Following Low cholesterol, high fiber diet? Yes If on statin: muscle aches? No If on statin: GI sx or diarrhea? No Additional history none. Lab review: Component Latest Ref Rng & Units 09/28/2022 03/15/2023 WBC 3.70 - 11.00 k/uL 8.24 6.76 RBC 3.90 - 5.20 m/uL 4.37 4.44 Hemoglobin 11.5 - 15.5 g/dL 12.0 12.1 Hematocrit 36.0 - 46.0 % 38.1 39.6 MCV 80.0 - 100.0 fL 87.2 89.2 MCH 26.0 - 34.0 pg 27.5 27.3 MCHC 30.5 - 36.0 g/dL 31.5 30.6 RDW-CV 11.5 - 15.0 % 14.7 14.6 Platelet Count 150 - 400 k/uL 342 329 MPV 9.0 - 12.7 fL 9.4 10.4 Neut% % 76.0 66.3 Abs Neut (ANC) 1.45 - 7.50 k/uL 6.27 4.48 Lymph% % 15.2 21.7 Abs Lymph 1.00 - 4.00 k/uL 1.25 1.47 [place]% % 6.1 7.7 Abs [place] <0.87 k/uL 0.50 0.52 Eosin% % 1.8 3.1 Abs Eosin <0.46 k/uL 0.15 0.21 Baso% % 0.5 0.9 Abs Baso <0.11 k/uL 0.04 0.06 Immature Gran % % 0.4 0.3 IMMATURE GRANS (ABS) <0.10 k/uL 0.03 <0.03 NRBC /100 WBC 0.0 0.0 Absolute nRBC <0.01 k/uL <0.01 <0.01 DTYPE Auto Auto Component Latest Ref Rng & Units 09/28/2022 03/15/2023 WBC 3.70 - 11.00 k/uL 8.24 6.76 RBC 3.90 - 5.20 m/uL 4.37 4.44 Hemoglobin 11.5 - 15.5 g/dL 12.0 12.1 Hematocrit 36.0 - 46.0 % 38.1 39.6 MCV 80.0 - 100.0 fL 87.2 89.2 MCH 26.0 - 34.0 pg 27.5 27.3 MCHC 30.5 - 36.0 g/dL 31.5 30.6 RDW-CV 11.5 - 15.0 % 14.7 14.6 Platelet Count 150 - 400 k/uL 342 329 MPV 9.0 - 12.7 fL 9.4 10.4 Neut% % 76.0 66.3 Abs Neut (ANC) 1.45 - 7.50 k/uL 6.27 4.48 Lymph% % 15.2 21.7 Abs Lymph 1.00 - 4.00 k/uL 1.25 1.47 [place]% % 6.1 7.7 Abs [place] <0.87 k/uL 0.50 0.52 Eosin% % 1.8 3.1 Abs Eosin <0.46 k/uL 0.15 0.21 Baso% % 0.5 0.9 Abs Baso <0.11 k/uL 0.04 0.06 Immature Gran % % 0.4 0.3 IMMATURE GRANS (ABS) <0.10 k/uL 0.03 <0.03 NRBC /100 WBC 0.0 0.0 Absolute nRBC <0.01 k/uL <0.01 <0.01 DTYPE Auto Auto Component Latest Ref Rng & Units 05/05/2020 03/15/2023 Cholesterol, Total <200 mg/dL 179 146 Triglyceride <150 mg/dL 166 (H) 94 HDL Cholesterol >39 mg/dL 49 49 LDL Cholesterol <100 mg/dL 97 78 Non HDL Cholesterol <130 mg/dL 130 (H) 97 Fasting Time hrs 12 13 VLDL Cholesterol <30 mg/dL 33 (H) 19 TC:HDL Ratio <5.10 3.65 2.98 LDL:HDL Ratio <2.54 1.98 1.59 Sob (shortness of breath) Obstructive sleep apnea Mild persistent asthma without complication Seasonal allergies Customer Experience Manager: Dr. Mendiola Interval history: nothing new. Current medications: Albuterol HFA 90 mcg per actuation 2 puffs every 6 hours as needed CPAP Fluticasone 50 mcg per actuation 1 spray each nostril daily Worsening shortness of breath: Yes, with activity. Unable to exercise due to knee pain issues. Cough: occasional. Wheezing: No. Smoking: No. Compliant with medications: Yes. Using rescue inhaler: rare. Ipmn (intraductal papillary mucinous neoplasm) 12/12/2022 MRI PANC/JUANJO WO/W IVCON: Subcentimeter pancreatic cystic lesions, likely side branch IPMN, and not significantly changed since 03/18/2019. No dilation of the main pancreatic duct. Gastroesophageal reflux disease with esophagitis without hemorrhage Irritable bowel syndrome with diarrhea Current medication: Lansoprazole 30 mg daily. Polyethylene glycol 335 tablespoon daily as needed Current symptoms: none. Last Mg level if on PPI chronically: 01/02/2022 Heartburn is controlled: No. Dysphagia: All her life has had episodes with particles that get stuck, rarely has to cough it back up. Bloody or black stools: No. Bowel changes: No. Chronic pain of left knee Infection of prosthetic joint, initial encounter ([facility]) Failure of total knee replacement, initial encounter ([facility]) Current medications: Tylenol 500 mg 2 tablets every 8 hours as needed Clindamycin 300 mg to 2 capsules daily prior to dental procedure Mobic 7.5 mg daily Stable pain , managing with routines of daily living. Can't stress knee too much. Current supplements listed: Vitamin D3 1000 units daily Folic acid 1 mg daily Vitamin D daily Hasn't been taking vit D due to cost. Reviewed options or 100 tabs at $12.16 Episode of Vertigo, transferred to [facility] 02/12/2023 Vertigo came on suddenly while visit [facility] at [facility]. Couldn't sit up straight, gravity just pulled me over, arms and legs were flapping, thought she was having a stroke. Lasted about an hour. Has noticed any after affects. Current medications: Meclizine 25 mg 3 times daily ([place] [facility]): not using currently Zofran ODT 8 mg 1 tablet every 8 hours as needed: not using currently No syncope, record indicates patient later self over chair and her arms were shaking. Did not lose consciousness. Vital signs 97.2 F-[id number]/56-97% RA, exam was essentially normal, NIH stroke scale was 0. CBC abnormals: Hgb 11.4-HCT 35.5, RDW 44.4, neutrophil percent 78.8, lymphs percent 14.2 with absolute counts normal. Chemistry abnormals: Chloride 109-BUN 20-CRE 1.10-GLU 107. Troponin 1 negative at 6. 02/12/2023 CT brain without contrast [facility] for evaluation of dizziness: Calcifications in cavernous carotid artery, mild cerebral atrophy, no hemorrhage or infarct, normal paranasal sinuses 02/12/2023 chest x-ray: No acute disease HISTORIES FAMILY HISTORY Problem Relation Age of Onset Ischemic Heart Disease Father [place]ED [place] Diabetes Father Ischemic Heart Disease Mother P[place]ED FROM [place] Coronary Artery Disease Brother stent Diabetes Sister Cancer Maternal Grandfather lung Cancer Paternal Grandfather lung PAST MEDICAL HISTORY Diagnosis Date Anxiety state, unspecified Arthritis Asthma Coronary artery disease Diverticulosis of colon (without mention of hemorrhage) Hemorrhage of gastrointestinal tract, unspecified Localized osteoarthrosis not specified whether primary or secondary, lower leg Lung nodules Myalgia Obstructive sleep apnea Other and unspecified hyperlipidemia Seasonal allergies Shingles 01/2017 Urge urinary incontinence PAST SURGICAL HISTORY Procedure Laterality Date ABDOMINAL SURGERY HX BREAST CYST PUNCTURE/BC CHOLECYSTECTOMY 04/09/2000 lap choley COLONOSCOPY - DIAGNOSTIC 11/01/2000 COLONOSCOPY FLX DX W/COLLJ SPEC WHEN PFRMD 09/09/2008 Colonoscopy COLONOSCOPY FLX DX W/COLLJ SPEC WHEN PFRMD 07/01/2014 Colonoscopy COLONOSCOPY FLX DX W/COLLJ SPEC WHEN PFRMD 11/05/2019 Colonoscopy COLONOSCOPY FLX DX W/COLLJ SPEC WHEN PFRMD 06/13/2021 ECHOCARDIOGRAM 04/24/2021 echo: LV small, LV SF WNL, EF 65%, grade 1 LVDD. All wall motion score normal. RV size and RV SF WNL, RVSP 38 mmHg consistent with mild pulmonary hypertension. LA and RA normal in size, inferior vena cava normal. MV: 0-1+ MVR, TV normal, 0-1+ TR, AV normal, PV not seen, 0-1+ FL. Mid a sending aorta 3.2 cm. Echocardiogram pulmonary arteries not interrogated, no pericardial effusion ESOPHAGOGASTRODUODENOSCOPY TRANSORAL DIAGNOSTIC 11/05/2019 EGD ESOPHAGOGASTRODUODENOSCOPY TRANSORAL DIAGNOSTIC 06/13/2021 EYE SURGERY HX HEMORRHOIDECTOMY INTERNAL RUBBER BAND LIGATIONS 11/05/2019 PICC LINE INSERT/CONSULT 08/24/2021 SKIN BIOPSY HX TONSILLECTOMY HX TONSILLECTOMY PRIMARY/SECONDARY <AGE 11 TOTAL KNEE REPLACEMENT Social History Tobacco Use Smoking status: Never Smokeless tobacco: Never Tobacco comments: Lived with smokers in childhood home and until 2002. Vaping Use Vaping Use: Never used Substance Use Topics Alcohol use: No Drug use: No ACTIVE PROBLEM LIST Internal Hemorrhoids Without Mention of Complication Diverticulosis of Colon (Without Mention of Hemorrhage) Hyperlipidemia Adjustment Disorder With Depressed Mood Urge Incontinence Gerd (Gastroesophageal Reflux Disease) Urinary Frequency Irritable Bowel Syndrome With Diarrhea Mild Persistent Asthma Without Complication Ipmn (Intraductal Papillary Mucinous Neoplasm) Ddd (Degenerative Disc Disease), Lumbar Bppv (Benign Paroxysmal Positional Vertigo), Unspecified Laterality Seasonal Allergies Obstructive Sleep Apnea Lung Nodules Non-Rheumatic Mitral Regurgitation Chronic Pain of Right Upper Extremity Chronic Pain of Left Knee Chronic Bilateral Low Back Pain Mild Pulmonary Hypertension (Hcc) S/P Total Knee Arthroplasty, Left Acquired Dilation of Ascending Aorta and Aortic Root (Hcc) Sob (Shortness of Breath) Iron Deficiency Anemia Iron Malabsorption Prosthetic Joint Infection (Hcc) Myalgia Failed Total Knee Arthroplasty (Hcc) Encounter for Support and Coordination of Transition of Care Current Outpatient Medications Medication Sig Dispense Refill meclizine (ANTIVERT) 25 mg tab Take 25 mg by mouth three times daily as needed. From [facility] er meloxicam (MOBIC) 7.5 mg tablet Take 1 tablet by mouth once daily. 30 tablet 0 buPROPion XL (WELLBUTRIN XL) 150 mg 24 hr tablet Take 1 tablet by mouth once daily. 30 tablet 5 busPIRone (BUSPAR) 5 mg tablet Take 1 tablet by mouth three times daily. 270 tablet 1 clindamycin (CLEOCIN) 300 mg capsule Take 2 capsules by mouth one hour prior to dental cleaning/procedure 2 capsule 1 ondansetron orally disintegrating (ZOFRAN ODT) 8 mg disintegrating tablet Take 1 tablet by mouth every 8 hours as needed for nausea/vomiting. 20 tablet 0 folic acid 1 mg tablet Take 1 tablet by mouth once daily. 90 tablet 3 rosuvastatin (CRESTOR) 5 mg tablet Take 1 tablet by mouth daily at bedtime. 90 tablet 3 metoprolol succinate ER (TOPROL XL) 25 mg 24 hr tablet Take 1 tablet by mouth twice daily. 180 tablet 3 lansoprazole (PREVACID) 30 mg capsule Take 1 capsule by mouth once daily. 90 capsule 3 ascorbic acid (VITAMIN C ORAL) Take 1 tablet by mouth once daily. 1000mg ondansetron (ZOFRAN) 4 mg tablet Take 1 tablet by mouth every 8 hours as needed. 9 tablet 3 CPAP polyethylene glycol 3350 (MIRALAX ORAL) Take 1 Tablespoonful by mouth as needed. acetaminophen (TYLENOL) 500 mg tablet Take 2 tablets by mouth every 8 hours as needed. fluticasone (FLONASE) 50 mcg/actuation nasal spray Use 1 [place] in each nostril once daily. albuterol HFA (PROAIR HFA) 90 mcg/actuation inhaler Inhale 2 Puffs as instructed every 6 hours as needed. 18 g 11 vitamin B complex (B COMPLEX 1 ORAL) Take 1 tablet by mouth once daily. cholecalciferol (VITAMIN D3) 1,000 unit tab tablet Take 1,000 Units by mouth once daily. Current Facility-Administered Medications Medication Dose Route Frequency Provider Last Rate Last Admin perflutren lipid microspheres 1.3 mL in NaCl (PF) 0.9% 10 mL injection (DEFINITY) INTRAVENOUS DIRECTED PRN Beck Alejandra, DO sodium chloride 0.9 % (flush) 10 mL (BD POSIFLUSH) 10 mL INTRAVENOUS DIRECTED PRN Beck Alejandra, DO HEPATITIS C SCREENING Never done SHINGRIX VACCINE(2 of 3) due on 03/13/2010 DTAP,TDAP,TD(1 - Tdap) due on 01/06/2015 COVID-19 VACCINE(5 - Moderna series) due on 06/07/2022 EXAM: BP (P) 116/62 Pulse (P) 72 Resp (P) 16 Wt (P) 70.1 kg (154 lb 9.6 oz) SpO2 (P) 98% BMI (P) 25.73 kg/m Pleasant adult woman in no acute distress. Alert and oriented all spheres. Normal affect and cognition. Speech normal. No deficits to learning or comprehension. Skin warm, dry, pink to lips and nailbeds. Normal turgor. Respirations regular and unlabored. HEENT: NCAT. No scleral icterus or conjunctival injection. TM's clear. Nose and oropharynx free from injection or lesion. Oral membranes moist and pink. No cervical lymph nodes. Thyroid non-tender, no masses, or enlargement. Carotids pulses 2+/4+ without bruits. No JVD with HOB at 30 degrees. Chest is normal shape. Lungs are clear to all [place] with good air exchange through out. HRRR without murmur or gallop. No lifts, heaves, or rubs. Extrem: no clubbing or cyanosis. Edema: none. Extremities are warm and pink with prompt capillary refill. ASSESSMENT/PLAN: 1. Adjustment reaction with anxiety and depression - ICD9: 309.28, ICD10: F43.23 (primary diagnosis) 2. Depression, recurrent (HCC) - ICD9: 296.30, ICD10: F33.9 Stable, actually brighter than she has been, acknowledges feeling andrew.r Some talk therapy/ spiritual care with reflection over 10 minute period r/t managing disappointments with uLis's health and failures of her son. Discussed healthy boundary setting. 3. Non-rheumatic mitral regurgitation - ICD9: 424.0, ICD10: I34.0 Stable, followed by cardiology. 4. 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) - ICD9: 447.70, ICD10: I77.819 Normal measurements on most recent echo, asymptomatic 5. Mixed hyperlipidemia - ICD9: 272.2, ICD10: E78.2 - Controlled - Continue current medications - Counseled on healthy diet and regular exercise 6. Mild pulmonary hypertension (HCC) - ICD9: 416.8, ICD10: I27.20 stable 7. SOB (shortness of breath) - ICD9: 786.05, ICD10: R06.02 Patient feels primary issue is poor aerobic fitness due to loss of ability to exercisie wr/t failed left TKR. 8. Obstructive sleep apnea - ICD9: 327.23, ICD10: G47.33 Compliant with CPAP 9. Mild persistent asthma without complication - ICD9: 493.90, ICD10: J45.30 - Mild intermittent asthma stable - Continue current medications - Avoidance of triggers recommended 10. Seasonal allergies - ICD9: 477.9, ICD10: J30.2 stable 11. IPMN (intraductal papillary mucinous neoplasm) - ICD9: 239.0, ICD10: D49.0 Stable over 4 years 12. Gastroesophageal reflux disease with esophagitis without hemorrhage - ICD9: 530.81, 530.10, ICD10: K21.00 - Continue treatment with lanzoprazole 30mg daily 13. Irritable bowel syndrome with diarrhea - ICD9: 564.1, ICD10: K58.0 Managing with diet and PEG 14. Chronic pain of left knee - ICD9: 719.46, 338.29, ICD10: M25.562, G89.29 15. Infection of prosthetic joint, initial encounter (HCC) - ICD9: 996.66, ICD10: T84.50XA 16. Failure of total knee replacement, initial encounter ([facility]) - ICD9: 996.47, V43.65, ICD10: T84.018A, Z96.659 Unchanged, managing with only occasional Tylenol. Some of this note may have been copied and pasted for the purpose of history context and comparison. F/u 6 months or as needed Layla Bellamy PA-C documented in this encounter [facility] 03-11-2023 History of Present illness Narrative CDM Telephonic Outreach Provider Action/FYI Spoke to pt, denies CDM issues or concerns, states has a runny nose worse with the bad air quality and humidity, advised pt to use Flonase as ordered, pt states she forgot all about the Flonase, will start using Reminded pt of PCP appt and fasting labs that need done prior to appt, pt was not aware of lab orders Asthma HTN knee surgery, in assisted living 04/04 PCP appt Contacted for: Routine Telephonic Outreach Contact made with patient: Yes Patient identified by name and date of . Discussed care with patient Are you experiencing any new or worsening symptoms you need to talk about today? No Disease Specific Do you check your blood pressure at home? No Do you have new or worsening shortness of breath with activity? No Do you have new or worsening cough? No Do you have new or worsening wheezing? No Do you need to use your rescue (Albuterol) inhaler or nebulizer more often than normal? No Based on gluer and slicer hand, the following disposition is advised: No symptoms or symptoms present, not severe. Routed to: No Action Needed DELMIS Education Provided this Outreach: No Steve Freedman RN March 11, 2023 2:05 PM documented in this encounter [facility] 02-20-2023 Instructions Dominga Ann APRN.[facility] - 02/20/2023 10:13 AM EDT Images from the original note were not included. Continue the same medications. Use the flonase and OTC allergy medication. If symptoms do not continue to improve or worsens, let us know. If symptoms reoccur, let us know. Benign Paroxysmal Positional Vertigo (BPPV) What is BPPV? Benign Paroxysmal Positional Vertigo (BPPV) is an inner ear disorder in which changes to the position of the head, such as tipping the head backward, lead to sudden vertigo -- a feeling that the room is spinning. Vertigo can vary in intensity from mild to severe and usually lasts only a few minutes. It may be accompanied by other symptoms, including dizziness lightheadedness a sense of imbalance nausea vomiting Anatomy of the right inner ear. Particle repositioning therapy moves the otoconia out of the semicircular canals and into the utricle where they dissolve naturally. BPPV is not a sign of a serious problem, and it usually disappears on its own within 6 weeks of the first episode. However, the symptoms of BPPV can be very frightening and may be dangerous, especially in older individuals. The unsteadiness associated with BPPV can lead to falls. About half of all people over age 65 experience an episode of BPPV, and falls are a leading cause of fractures in this age-range. What causes BPPV? BPPV develops when calcium carbonate crystals, which are known as otoconia, shift into and become trapped within the semicircular canals (one of the vestibular organs of the inner ear that controls balance). The otoconia make up a normal part of the structure of the utricle, a vestibular organ next to the semicircular canals. (see illustration to the right.) In the utricle, the otoconia may be loosened as a result of injury, infection, or age, and they land in a sac -- the utricle -- where they are naturally dissolved. However, otoconia in the semicircular canals will not dissolve. As a person s head position changes, the otoconia begin to roll around and push on the tiny hairs that line the semicircular canals. Those hairs act as sensors to give the brain information about balance. Vertigo develops when the hairs are stimulated by the rolling otoconia. What head positions trigger BPPV? Movements that can trigger an episode of BPPV include rolling over or sitting up in bed, bending the head forward to look down, or tipping the head backward. In most people, only a single ear is affected by BPPV, although both ears may be involved on occasion. How is BPPV diagnosed and treated? With advances in medical technology, BPPV can easily be diagnosed and treated. The diagnosis can usually be made in the office based on medical history and a physical exam. Treatment also involves a short, simple in-office procedure known as the particle repositioning maneuver. (See addendum below.) How can I identify the affected side? Steps to determine affected side: Sit on bed so that if you lie down, your head hangs slightly over the end of the bed. Turn head to the right and lie back quickly. Wait 1 minute. If you feel dizzy, then the right ear is your affected ear. If no dizziness occurs, sit up. Wait 1 minute. Turn head to the left and lie back quickly. Wait 1 minute. If you feel dizzy, then the left ear is your affected ear. Right position Left position How successful is the treatment? A single particle repositioning procedure is effective in treating about 80% to 90% of cases of BPPV. Additional exercise or repositioning maneuvers may be needed if symptoms persist. Can BPPV recur? If so, what can I do? A new episode of BPPV can develop after successful treatment -- on average there is a 15 percent rate of recurrence each year. However, it may be possible to treat recurrent BPPV at home by performing a series of movements at the time an episode occurs. Patients will receive information on ways to handle recurrences on their own or they can work with a physical therapist to develop a plan. In general, if you wake up with positional vertigo, slowly move into the vqzo-mdg-eguz position and wait for a minute. Next, slowly move into a face-down position and slide to the foot of the bed. Keep your head down until you reach the end of the bed and are kneeling or standing on the floor. Slowly bring your head backward into an upright position. Hold on to the bed at all times. Another method is to sit toward the foot of the bed, leaving enough room to lay back with your head resting comfortably at the end of the bed, slightly extended. Be careful not to overextend your neck, as this may aggravate existing neck problems. If your symptoms are severe, you may need assistance to complete the maneuver. Follow the same steps as described in the boxed instructions on the next page. Without treatment, the symptoms of BPPV may worsen. However, with time, the otoconia dissolve on their own, which is usually within 6 weeks. Until the time the otoconia dissolve on their own, the number and severity of episodes may be reduced simply by paying careful attention to head position. In addition, anti-motion sickness drugs can be given to control nausea. However, before drugs are taken, it is usually best to try the particle repositioning procedure first. It is a very safe and rapid way to relieve symptoms and reduce the chance for falls. Medications should not be taken for a long period of time. ADDENDUM Particle repositioning procedure: Iknn-dy-newu instructions The particle repositioning procedure takes about 15 minutes to complete and involves a series of physical movements that change the position of the head and body. These actions shift the otoconia out of the semicircular canals and back into their proper location in the utricle. The particle repositioning procedure begins with the patient is sitting up and then lying down on a treatment table. The procedure is very easy to perform. Patients should wear comfortable clothing that will allow them to move freely. Hold each of the following positions for 1 to 2 minutes. Step 1: Turn your head toward your affected ear. Step 2: Lay back quickly. Hold. Step 3: Keep your head back against the bed and turn it toward the good ear. Hold. Step 4: Roll onto your side with your good ear down. Your nose should be turned toward the floor. Hold. Step 5: Sit up, keeping your chin tucked in toward your shoulder. Hold. When you end, you should be sitting over the side of your bed so your feet touch the floor. Step 6: Follow your post-particle repositioning instructions. BPPV: Glossary of Terms Semicircular canals: These structures act like a gyroscope, with canals positioned in three dimensions -- upward, downward, and horizontal. Together, the canals send signals to the brain about the rotation/positioning of the head (for example, when you bend over or spin around.) Cupula: Detects the flow of fluid within the semicircular canals. The flow of fluid gives the body a sense of motion. Utricle: An organ located in the inner ear that helps control balance. The utricle contains hair cells, which are covered with otoconia. The otoconia sway with gravity, sending signals to the brain about the position of the head and body (upright, tilted, etc). Otoconia: The tiny calcium crystal particles that become dislodged from within the utricle (where they can dissolve) and move into the semicircular canals (where they can t dissolve). Cochlea: The 'snail-shell' sense organ of the inner ear that translates sound into nerve impulses and sent to the brain. References Soco BT, Flaco LB. Roshan BOOGIE. Peripheral Vestibular Disorders. In: [facility] [facility] Head [facility]ck [facility], 3-Volume Set. [place]; 2014. Chance Joshi. Benign Paroxysmal Positional Vertigo (BPPV): History, Pathophysiology, Office Treatment and Future Directions. International Journal of Otolaryngology. 2011;2011:389942. [place] JS, Keyonna KIM. Clinical practice. Benign paroxysmal positional vertigo. N Engl J Med. 2013Nov 12;370(12):1138-47. Flaco Kaba DD, Venice Haque. The Head and Neck. In: Harvey THOMAS, Flaco CAO, Clemencia Rich, [place] BRUNER. eds. DeGlancein s Diagnostic Examination, 10e. [place], [place]: [facility]; 2015. Copyright 5622-8180 The [facility]. All rights reserved This information is provided by the [facility] and is not intended to replace the medical advice of your doctor or health care provider. Please consult your health care provider for advice about a specific medical condition. For additional health information, please contact the Center for Consumer Health Information at the [facility] or toll-free extension [phone]. If you prefer, you may visit [email or web address] or [email or web address]. This document was last reviewed on: 2015 documented in this encounter [facility] 02-20-2023 History of Present illness Narrative This is a 77 year old female who presents today with: Patient presents with: ER F/U: [facility] ER FU 02/12/23. Dx'd with vertigo. HISTORY OF PRESENT ILLNESS: Cheryl Marrero is a 77 year old female. Patient presents with: ER F/U: [facility] ER FU 02/12/23. Dx'd with vertigo. Patient presents today for emergency room follow-up. She went to [facility] on 02/12/2023 with complaints of dizziness. Per the ER records, she was visiting her in a nursing facility when she developed a sense that she was spinning around. She laid over a piece of furniture and her arms were shaking. She remained fully alert. She did not have a syncopal episode. She did have some nausea but no vomiting. She was not short of breath. She notes palpitations or chest pain. There was no lateralization of symptoms. There were no speech or vision difficulties. In ER, she had a chest x-ray which was normal. She had a brain CT that showed no acute findings. Her EKG showed sinus rhythm with multiple PACs. No ST changes. Lab work was essentially normal/stable. She was given IV fluids, Zofran, and meclizine. This resolved her symptoms. She was ambulatory in the ER without difficulty. She was discharged home with a prescription for meclizine as needed. No further episodes. Admits that she had an episode of vertigo years ago, that was more mild in nature. Refers that she still has a pressure headache. Refers stomach doesn't feel quite right. Since ER visit, turned her head once and thought that symptoms were going to reoccur, but didn't. She resumed driving yesterday. Worried about recurrence of symptoms. PAST MEDICAL HISTORY: PAST MEDICAL HISTORY Diagnosis Date Anxiety state, unspecified Arthritis Asthma Coronary artery disease Diverticulosis of colon (without mention of hemorrhage) Hemorrhage of gastrointestinal tract, unspecified Localized osteoarthrosis not specified whether primary or secondary, lower leg Lung nodules Myalgia Obstructive sleep apnea Other and unspecified hyperlipidemia Seasonal allergies Shingles 01/2017 Urge urinary incontinence PAST SURGICAL HISTORY Procedure Laterality Date ABDOMINAL SURGERY HX BREAST CYST PUNCTURE/BC CHOLECYSTECTOMY 04/09/2000 lap choley COLONOSCOPY - DIAGNOSTIC 11/01/2000 COLONOSCOPY FLX DX W/COLLJ SPEC WHEN PFRMD 09/09/2008 Colonoscopy COLONOSCOPY FLX DX W/COLLJ SPEC WHEN PFRMD 07/01/2014 Colonoscopy COLONOSCOPY FLX DX W/COLLJ SPEC WHEN PFRMD 11/05/2019 Colonoscopy COLONOSCOPY FLX DX W/COLLJ SPEC WHEN PFRMD 06/13/2021 ECHOCARDIOGRAM 04/24/2021 echo: LV small, LV SF WNL, EF 65%, grade 1 LVDD. All wall motion score normal. RV size and RV SF WNL, RVSP 38 mmHg consistent with mild pulmonary hypertension. LA and RA normal in size, inferior vena cava normal. MV: 0-1+ MVR, TV normal, 0-1+ TR, AV normal, PV not seen, 0-1+ FL. Mid a sending aorta 3.2 cm. Echocardiogram pulmonary arteries not interrogated, no pericardial effusion ESOPHAGOGASTRODUODENOSCOPY TRANSORAL DIAGNOSTIC 11/05/2019 EGD ESOPHAGOGASTRODUODENOSCOPY TRANSORAL DIAGNOSTIC 06/13/2021 EYE SURGERY HX HEMORRHOIDECTOMY INTERNAL RUBBER BAND LIGATIONS 11/05/2019 PICC LINE INSERT/CONSULT 08/24/2021 SKIN BIOPSY HX TONSILLECTOMY HX TONSILLECTOMY PRIMARY/SECONDARY <AGE 12 TOTAL KNEE REPLACEMENT ALLERGIES Phenergan [Promethazine Hcl], Opcykzb-Pvl-Udh Reductase Inhibitors, Adhesive, Breo Ellipta [Fluticasone Furoate-Vilanterol], Penicillins, Roxicodone [Oxycodone], Sulfa (Sulfonamide Antibiotics), and Vancomycin MEDICATIONS Current Outpatient Medications Medication Sig meclizine (ANTIVERT) 25 mg tab Take 25 mg by mouth three times daily as needed. From [facility] er meloxicam (MOBIC) 7.5 mg tablet Take 1 tablet by mouth once daily. buPROPion XL (WELLBUTRIN XL) 150 mg 24 hr tablet Take 1 tablet by mouth once daily. clindamycin (CLEOCIN) 300 mg capsule Take 2 capsules by mouth one hour prior to dental cleaning/procedure ondansetron orally disintegrating (ZOFRAN ODT) 8 mg disintegrating tablet Take 1 tablet by mouth every 8 hours as needed for nausea/vomiting. folic acid 1 mg tablet Take 1 tablet by mouth once daily. rosuvastatin (CRESTOR) 5 mg tablet Take 1 tablet by mouth daily at bedtime. metoprolol succinate ER (TOPROL XL) 25 mg 24 hr tablet Take 1 tablet by mouth twice daily. lansoprazole (PREVACID) 30 mg capsule Take 1 capsule by mouth once daily. ascorbic acid (VITAMIN C ORAL) Take 1 tablet by mouth once daily. 1000mg ondansetron (ZOFRAN) 4 mg tablet Take 1 tablet by mouth every 8 hours as needed. polyethylene glycol 3350 (MIRALAX ORAL) Take 1 Tablespoonful by mouth as needed. acetaminophen (TYLENOL) 500 mg tablet Take 2 tablets by mouth every 8 hours as needed. fluticasone (FLONASE) 50 mcg/actuation nasal spray Use 1 [place] in each nostril once daily. albuterol HFA (PROAIR HFA) 90 mcg/actuation inhaler Inhale 2 Puffs as instructed every 6 hours as needed. vitamin B complex (B COMPLEX 1 ORAL) Take 1 tablet by mouth once daily. cholecalciferol (VITAMIN D3) 1,000 unit tab tablet Take 1,000 Units by mouth once daily. busPIRone (BUSPAR) 5 mg tablet Take 1 tablet by mouth three times daily. CPAP Current Facility-Administered Medications Medication Dose Route Frequency perflutren lipid microspheres 1.3 mL in NaCl (PF) 0.9% 10 mL injection (DEFINITY) INTRAVENOUS DIRECTED PRN sodium chloride 0.9 % (flush) 10 mL (BD POSIFLUSH) 10 mL INTRAVENOUS DIRECTED PRN FAMILY HISTORY Problem Relation Age of Onset Ischemic Heart Disease Father PASSED FROM [place] Diabetes Father Ischemic Heart Disease Mother PASSED FROM [place] Coronary Artery Disease Brother stent Diabetes Sister Cancer Maternal Grandfather lung Cancer Paternal Grandfather lung Social History Tobacco Use Smoking status: Never Smokeless tobacco: Never Tobacco comments: Lived with smokers in childhood home and until 2002. Vaping Use Vaping Use: Never used Substance Use Topics Alcohol use: No Drug use: No EXAM: BP 126/74 Pulse (!) 53 Resp 16 Wt 68.9 kg (152 lb) SpO2 97% BMI 25.29 kg/m PHYSICAL EXAM: General Appearance: Well appearing, alert, in no acute distress, well-hydrated, well nourished.. Skin: Skin color, texture, turgor normal, no suspicious rashes or lesions. Head: Normocephalic, no masses, lesions, tenderness or abnormalities. Eyes: Anicteric sclera. Pupils are equally round and reactive to light. Extraocular movements are intact. Ears: External ears normal, canals clear. Normal TMs bilaterally. Oropharynx: Lips, mucosa, and tongue normal, teeth and gums normal, oropharynx normal. Neck: Supple, no adenopathy; thyroid symmetric, normal size, no bruits. Lungs: Lungs clear to auscultation. No wheezing, rhonchi, rales.. Heart: RRR without murmur, gallop, or rubs. No ectopy. Abdomen: Abdomen soft, non-tender. Bowel sounds normal. No masses, organomegaly. Extremities: No deformities, edema, skin discoloration, clubbing or cyanosis. Good capillary refill. . Neurologic: Negative findings: speech normal, mental status intact, muscle tone normal, muscle strength normal, rapid alternating movements normal, finger to nose normal. ASSESSMENT/PLAN: 1. Vertigo - ICD9: 780.4, ICD10: R42 Symptoms clinically improved. Neurologically intact. Discussed vertigo exercises. Keep meclizine on hand, if needed. Stay well hydrated. Notify provider if symptoms do not fully resolve or worsen. Notify provider of recurrence of symptoms. To ER with severe symptoms. Discussed treatment plan and patient voices understanding. Patient's questions answered appropriately. Medications and potential side effects were discussed and patient voices understanding. Return to the office as scheduled or as needed for worsening/no improvement. Dominga Ann APRN.[employer] documented in this encounter [facility] 02-11-2023 History of Present illness Narrative CDM Telephonic Outreach Provider Action/FYI Using CPAP? LVM Asthma HTN knee surgery, in assisted living Contacted for: Routine Telephonic Outreach Contact made with patient: No, left message. Steve Freedman RN February 11, 2023 1:19 PM documented in this encounter [facility] 01-22-2023 History of Present illness Narrative Images from the original note were not included. [facility] [place] Department of Cardiovascular Medicine SECTION OF CLINICAL CARDIOLOGY OUTPATIENT VISIT DATE 01/22/23 OUTPATIENT VISIT TYPE ESTABLISHED PRIMARY CARE PHYSICIAN: Layla Bellamy [address] [place] [address] CHIEF COMPLAINT: Follow up HISTORY OF PRESENT ILLNESS: Ms. Marrero is a 77 year old female with history of mitral regurgitation, HTN, HLD, RAVIN, mild pHTN, asthma, PIO, GERD, and IBS who presents today for a cardiovascular medicine follow-up visit. She was last seen in the office by me on 08/04/2021 at which time she was doing well from a cardiovascular standpoint and no additions or changes were made at that time. 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 She has since recovered and has been doing well. Her is currently in an assisted living facility which keeps her busy visiting him multiple days per week. She admits that she has not been using her CPAP since her hospitalization at the beginning of the year as she got out of the habit of doing so. She has not been monitoring her heart rate or blood pressure daily at home. She is not participating in daily aerobic exercise. She denies any shortness of breath, chest pain, palpitations, dizziness, lightheadedness, lower extremity edema, PND, orthopnea, presyncope, syncope, or claudication symptoms. Subjective PAST MEDICAL HISTORY Diagnosis Date Anxiety state, unspecified Arthritis Asthma Coronary artery disease Diverticulosis of colon (without mention of hemorrhage) Hemorrhage of gastrointestinal tract, unspecified Localized osteoarthrosis not specified whether primary or secondary, lower leg Lung nodules Myalgia Obstructive sleep apnea Other and unspecified hyperlipidemia Seasonal allergies Shingles 01/2017 Urge urinary incontinence PAST SURGICAL HISTORY Procedure Laterality Date ABDOMINAL SURGERY HX BREAST CYST PUNCTURE/BC CHOLECYSTECTOMY 04/09/2000 lap choley COLONOSCOPY - DIAGNOSTIC 11/01/2000 COLONOSCOPY FLX DX W/COLLJ SPEC WHEN PFRMD 09/09/2008 Colonoscopy COLONOSCOPY FLX DX W/COLLJ SPEC WHEN PFRMD 07/01/2014 Colonoscopy COLONOSCOPY FLX DX W/COLLJ SPEC WHEN PFRMD 11/05/2019 Colonoscopy COLONOSCOPY FLX DX W/COLLJ SPEC WHEN PFRMD 06/13/2021 ECHOCARDIOGRAM 04/24/2021 echo: LV small, LV SF WNL, EF 65%, grade 1 LVDD. All wall motion score normal. RV size and RV SF WNL, RVSP 38 mmHg consistent with mild pulmonary hypertension. LA and RA normal in size, inferior vena cava normal. MV: 0-1+ MVR, TV normal, 0-1+ TR, AV normal, PV not seen, 0-1+ FL. Mid a sending aorta 3.2 cm. Echocardiogram pulmonary arteries not interrogated, no pericardial effusion ESOPHAGOGASTRODUODENOSCOPY TRANSORAL DIAGNOSTIC 11/05/2019 EGD ESOPHAGOGASTRODUODENOSCOPY TRANSORAL DIAGNOSTIC 06/13/2021 EYE SURGERY HX HEMORRHOIDECTOMY INTERNAL RUBBER BAND LIGATIONS 11/05/2019 PICC LINE INSERT/CONSULT 08/24/2021 SKIN BIOPSY HX TONSILLECTOMY HX TONSILLECTOMY PRIMARY/SECONDARY <AGE 11 TOTAL KNEE REPLACEMENT Social History Tobacco Use Smoking status: Never Smokeless tobacco: Never Tobacco comments: Lived with smokers in childhood home and until 2002. Vaping Use Vaping Use: Never used Substance Use Topics Alcohol use: No Drug use: No FAMILY HISTORY Problem Relation Age of Onset Ischemic Heart Disease Father PASSED FROM [place] Diabetes Father Ischemic Heart Disease Mother PASSED FROM [place] Coronary Artery Disease Brother stent Diabetes Sister Cancer Maternal Grandfather lung Cancer Paternal Grandfather lung ALLERGIES: ALLERGIES Allergen Reactions Phenergan [Prometha* Mental Status Change, Intolerance Hvjfklr-Mgw-Lqh Red* Other: See Comments Elevated liver enzymes in hospital, statins stopped. Adhesive Rash Breo Ellipta [Fluti* Other: See Comments Hoarseness/ Shortness of breath Penicillins Other: See Comments Local reaction at site of injection Roxicodone [Oxycodo* Intolerance Severe nausea and lightheadness Sulfa (Sulfonamide * Vancomycin Other: See Comments redness MEDICATIONS: meloxicam (MOBIC) 7.5 mg tablet Take 1 tablet by mouth once daily. buPROPion XL (WELLBUTRIN XL) 150 mg 24 hr tablet Take 1 tablet by mouth once daily. busPIRone (BUSPAR) 5 mg tablet Take 1 tablet by mouth three times daily. clindamycin (CLEOCIN) 300 mg capsule Take 2 capsules by mouth one hour prior to dental cleaning/procedure ondansetron orally disintegrating (ZOFRAN ODT) 8 mg disintegrating tablet Take 1 tablet by mouth every 8 hours as needed for nausea/vomiting. folic acid 1 mg tablet Take 1 tablet by mouth once daily. rosuvastatin (CRESTOR) 5 mg tablet Take 1 tablet by mouth daily at bedtime. metoprolol succinate ER (TOPROL XL) 25 mg 24 hr tablet Take 1 tablet by mouth twice daily. lansoprazole (PREVACID) 30 mg capsule Take 1 capsule by mouth once daily. ascorbic acid (VITAMIN C ORAL) Take 1 tablet by mouth once daily. 1000mg ondansetron (ZOFRAN) 4 mg tablet Take 1 tablet by mouth every 8 hours as needed. polyethylene glycol 3350 (MIRALAX ORAL) Take 1 Tablespoonful by mouth as needed. acetaminophen (TYLENOL) 500 mg tablet Take 2 tablets by mouth every 8 hours as needed. fluticasone (FLONASE) 50 mcg/actuation nasal spray Use 1 [place] in each nostril once daily. albuterol HFA (PROAIR HFA) 90 mcg/actuation inhaler Inhale 2 Puffs as instructed every 6 hours as needed. vitamin B complex (B COMPLEX 1 ORAL) Take 1 tablet by mouth once daily. cholecalciferol (VITAMIN D3) 1,000 unit tab tablet Take 1,000 Units by mouth once daily. CPAP REVIEW OF SYSTEMS: CARD: See HPI GENERAL: Negative for: Weight loss or gain, Fever and/or Chills HEENT: Negative for: Headache, Impaired Vision, Glasses, Hearing Impairment, Ringing in Ears, Nosebleeds, Bleeding Gums NECK: Negative for: Swelling, Pain, Stiffness RESPIRATORY: Negative for: Cough, Blood in Sputum, Shortness of breath, Wheezing, Apnea GASTROINTESTINAL: Negative for: Nausea, Vomiting, Diarrhea, Blood in stool, or Dark black stools MUSCULOSKELETAL: +L knee pain NEUROLOGIC: Negative for: focal numbness/weakness, headaches, visual changes, ataxia, speech/language loss SKIN: Negative for: Rashes, Itching HEMATOLOGICAL/LYMPHATIC: Negative for: Easy bruising , Easy bleeding ENDOCRINE: Negative for: Heat or cold intolerance, Excessive sweating, Frequent urination, Frequent thirst Objective PHYSICAL EXAMINATION: BP 136/68 Pulse 81 Ht 165.1 cm (5' 5) Wt 68.5 kg (151 lb) SpO2 98% BMI 25.13 kg/m General: Well appearing, in no acute distress. Neck: No jugular venous distention, no carotid bruits, carotids have a normal upstroke. Lungs: Clear to auscultation bilaterally, no wheezing or rhonchi. Heart: Regular rhythm, S1, S2 normal, no S3, no S4, no heaves, no rub and 1/6 PONCE LSB. No peripheral edema . Grade 2/4 distal pulses bilaterally. Abdomen: Soft, nontender, bowel sounds normal, no bruits. Neuro: Oriented to person, place and time, alert, cooperative, gait coordinated. CARDIOVASCULAR MEDICINE TESTING: Last EKG Result Conclusion ECG COMPLETE Collected: 07/04/2022 1:33 PM (Final result) Impression: NORMAL SINUS RHYTHM NORMAL ECG Confirmed by MD RIBEIRO GREGORY () on 07/10/2022 10:08:07 AM Echocardiogram 04/24/2021: - The left ventricle is small. Left ventricular systolic function is normal. EF = 65 5% (2D biplane) Grade I left ventricular diastolic dysfunction. - The right ventricle is normal in size. Right ventricular systolic function is normal. Pharm MPI stress 06/05/2019: 1. SPECT Perfusion Study: Normal. 2. There is no scintigraphic evidence for inducible ischemia. 3. No evidence of scarred myocardium. 4. Functional capacity N/A (pharmacological). 5. Left ventricle is normal in size. The left ventricle systolic function is normal. 6. Right ventricle is normal in size. 7. This is a low risk scan. LVEF % 74 Electrocardiogram 07/04/22: Normal sinus rhythm at 68 bpm I have personally reviewed the Electrocardiogram. PLAN AND RECOMMENDATIONS: Mitral regurgitation - Echo 12/2017 with moderate (2+) MR - Echo 05/2019 with mild (1+) MR - Echo 03/2021 with trace MR - Emphasis on afterload reduction - Periodic echocardiogram monitoring Essential hypertension - Optimal control on Metoprolol Succinate 25 mg BID - Encouraged dietary sodium restriction/DASH diet - Reviewed risks of HTN and principles of treatment - Goal of BP <130/80 Mixed hyperlipidemia - Currently on Rosuvastatin 5 mg daily - Last lipid panel 12/2021 with LDL 64 - Normal LFTs 12/2021 - History of liver dysfunction on statin. Able to tolerate Crestor Mild pulmonary hypertension - Most recent echo 03/2021 with RVSP 38 mmHg - Known RAVIN and asthma - Periodic echocardiogram monitoring - CPAP compliance encouraged Obstructive sleep apnea - Noncompliant on CPAP - Follows with pulmonary, Dr. Mendiola in [place] - CPAP compliance encouraged CONCLUSION: Patient presents today for follow-up an appears to be doing well from a cardiovascular standpoint. Her mitral regurgitation was stable on most recent echocardiogram. Her heart rate, blood pressure, and cholesterol profile remain under favorable control. She does admit that she has not been using her CPAP consistently. She does have mild pulmonary hypertension on her echo and the importance of CPAP compliance given her RAVIN and she is agreeable to restart her CPAP therapy at this time. Thank you for allowing me the privilege of participating in the care of your patient. Please do not hesitate to contact me if there are any questions. Beck Alejandra, DO, FACC, FCCP, FACOI This note was partially generated using [employer] recognition system and may contain errors related to that system including grammar, punctuation, spelling, and words that may be inappropriate documented in this encounter [facility] 01-03-2023 Miscellaneous Notes OK to refill as ordered Raul Brush MD Patient has been identified by name and date of : Yes Requested Prescriptions Pending Prescriptions Disp Refills buPROPion XL (WELLBUTRIN XL) 150 mg 24 hr tablet 30 tablet 5 Sig: Take 1 tablet by mouth once daily. CATY 10/15/22 NOV 04/04/23 RX INSTRUCTIONS: Patient aware RX will be sent to pharmacy. No need to notify patient. Bibi Scott Ma documented in this encounter [facility] 12-21-2022 Miscellaneous Notes Patient has been identified by name and date of : Yes Requested Prescriptions No prescriptions requested or ordered in this encounter meloxicam (MOBIC) 7.5 mg tablet RX INSTRUCTIONS: Patient aware RX will be sent to pharmacy. No need to notify patient. Mariaelena Mares documented in this encounter [facility] 12-12-2022 History of Present illness Narrative Radiology Service Progress Note DATE OF SERVICE: December 12, 2022 TIME: 10:01 AM PATIENT IDENTITY VERIFICATION COMPLETED USING TWO (2) STANDARD IDENTIFIERS: Name and Date of confirmed by patient verbally. FALL SCREENING: Has the patient had 2 falls in the last year or 1 fall with injury or currently using an Ambulatory Assistive Device (Walker, Cane, Wheelchair, Crutches, etc.)? Yes, Patient High Risk for Falls What interventions were put in place to prevent falls during this visit? Instructed Patient to Call for Help if Needed, Offered Assistance with Transfers/Clothing, Instructed Patient to Remain Seated (Not on Exam Table) Until Exam, and Increased Observations by Caregivers PATIENT GENDER DATA: Female. status: : No status: NO. PATIENT RELEVANT IMPLANT DATA REVIEWED: Yes ALLERGIES: Reviewed and unchanged CONTRAST ALLERGY: NO. EXAM: MRI - CONTRAST TYPE: GROUP II PERIPHERAL IV DATA: Ambulatory: A peripheral IV was started in the Left antecubital site with a Angio cath: 22 gauge. RADIOLOGY DEPARTMENT: MR; Exam(s) Completed: Body: Pancreas/Biliary SIGNATURE: RT Soco(R) PATIENT NAME: Cheryl Marrero DATE: December 12, 2022 TIME: 10:01 AM documented in this encounter [facility] 12-10-2022 History of Present illness Narrative Virtualist Distance Health Note (CDM/TCM//CC HC/H@[facility] escalations) Cheryl Marrero has consented to this telephone encounter. Persons Present: patient Triage source: Chronic Disease Management Contacted by phone, Privatext, [employer], Zoom, Doximity, other: phone visit History of present illness: Hx asthma 1 week of sinus pressure, congestion, cough Denies fever, SOB, chest pain, N/V/D, abdominal pain Past medical history, past surgical history, family history and social history reviewed and updated as indicated in EMR. REVIEW OF SYSTEMS: Review of Systems VITAL SIGNS: (if available) There were no vitals taken for this visit. Physical Exam (if video visit was performed) Physical Exam Assessment/Plan: ASSESSMENT/PLAN: 1. Congestion of upper airway - ICD9: 519.8, ICD10: J98.8 (primary diagnosis) 2. Cough, unspecified type - ICD9: 786.2, ICD10: R05.9 3. Sinus pressure - ICD9: 478.19, ICD10: J34.89 -Declines ABX at this time -Will try Mucinex OTC -Discussed red flag symptoms Disposition: Patient remains at home A total of 15 minutes was spent providing medical care using telemedicine. Signed in as Primary Virtualist, Secondary Virtualist, or [facility] Telehealth provider: Primary SIGNATURE: Alana Gastelum APRN.CNP PATIENT NAME: Cheryl Marrero DATE: December 10, 2022 documented in this encounter [facility] 12-10-2022 History of Present illness Narrative CDM Telephonic Outreach Provider Action/FYI Spoke to pt (hx of asthma, HTN) -has nasal congestion, dry cough for past 7 days -started with sore throat but that is currently gone -has sinus pressure and pain -denies fever/chills, SOB, chest pain -denies any recent sick contacts that she is aware of Will forward to virtualist for telephonic outreach, please call pt cell number [phone] Asthma, HTN, failed knee replacement 12/12 MRI abd (pancreas) 01/22 card appt Contacted for: Routine Telephonic Outreach Contact made with patient: Yes Patient identified by name and date of . Discussed care with patient Are you experiencing any new or worsening symptoms you need to talk about today? Yes Based on gluer and slicer hand, the following disposition is advised: Sent to virtualist. Steve Freedman RN December 10, 2022 2:48 PM documented in this encounter [facility] 11-19-2022 Miscellaneous Notes Patient has been identified by name and date of : Yes Requested Prescriptions Pending Prescriptions Disp Refills busPIRone (BUSPAR) 5 mg tablet 270 tablet 1 Sig: Take 1 tablet by mouth three times daily. RX INSTRUCTIONS: Patient aware RX will be sent to pharmacy. No need to notify patient. Savannah Alexander MA Caty: 09/2022 No appointment scheduled Last refill; 02/2022 documented in this encounter [facility] 11-12-2022 History of Present illness Narrative [facility] CDM TELEPHONIC OUTREACH Provider Toi/LATOSHA: Spoke to pt, pt was driving in car pt denies any CDM issues or concerns Has to schedule MRI of pancreas Asthma, HTN, failed knee replacement 01/22 card appt Contact made with patient: Yes Patient identified by name and . Discussed care with patient It s nice talking to you again. As a reminder, this is our bi-weekly check-in where I will be asking you questions about your health. This will only take a few minutes of your time. Is this a good time? Yes Symptoms What Chronic Disease(s) does the patient have: asthma Do you check your blood pressures at home? No Do you have new or worse shortness of breath with activity? No Do you have new or worsening cough? No Do you have new or worsening wheezing? No Do you need to use your rescue (Albuterol) inhaler or nebulizer more often than normal? No Are you having any other symptoms that your PCP needs to know about? No Symptoms: none Symptom Escalation DELMIS Education Ordered -: No The patient required an escalation for symptom(s)? No Medications Do you have any questions about taking your medication or which medications you should be on? No did not ask Do you need any medication refills at this time, including any of the medications you might take only when needed? No did not ask Social We would like to make sure you have what you need so that your basic needs are met- including your personal safety, food, housing, transportation and medications? Would you like to speak with a social work engineer steam to help give you support for any of these needs? No did not ask It can be normal to feel anxious or down during a time like this. Would you like to talk to a mental health professional about how you have been feeling? No did not ask Closing Thank you for taking the time to talk with me today. We want to work with you to ensure that we are keeping your medical condition(s) well-controlled and to keep you healthy and out of the doctor's office or hospital. It s also not too late for me to sign you up for automated weekly questionnaires through [email or web address]. This is an easy way for us to stay connected each week. Are you interested? No, I understand. We can always sign you up in the future if you change your mind. Just as a reminder, will continue to call you every other week to check in on your health. Our calls should take 10-15 minutes or less. Remember, if you have concerns in between our calls, please call your PCP's office right away. Thank you. Enter next patient outreach date for two weeks on the same day of the week as today in the Track Pt Outreach and End outreach. documented in this encounter [facility] 10-12-2022 History of Present illness Narrative INSIGHT CDM TELEPHONIC OUTREACH Provider Action/FYI: Spoke to pt, introduced this PCC No CDM issues or concerns Pt and have recovered from covid Pt goal, adls and falls risk reviewed and updated Contact made with patient: Yes Patient identified by name and . Discussed care with patient It s nice talking to you again. As a reminder, this is our bi-weekly check-in where I will be asking you questions about your health. This will only take a few minutes of your time. Is this a good time? Yes Symptoms What Chronic Disease(s) does the patient have: asthma Do you check your blood pressures at home? No Do you have new or worse shortness of breath with activity? No Do you have new or worsening cough? No Do you have new or worsening wheezing? No Do you need to use your rescue (Albuterol) inhaler or nebulizer more often than normal? No Are you having any other symptoms that your PCP needs to know about? No Symptoms: none Symptom Escalation DELMIS Education Ordered -: No The patient required an escalation for symptom(s)? No Medications Do you have any questions about taking your medication or which medications you should be on? No Do you need any medication refills at this time, including any of the medications you might take only when needed? No Social We would like to make sure you have what you need so that your basic needs are met- including your personal safety, food, housing, transportation and medications? Would you like to speak with a social work engineer steam to help give you support for any of these needs? No did not ask It can be normal to feel anxious or down during a time like this. Would you like to talk to a mental health professional about how you have been feeling? No did not ask Closing Thank you for taking the time to talk with me today. We want to work with you to ensure that we are keeping your medical condition(s) well-controlled and to keep you healthy and out of the doctor's office or hospital. It s also not too late for me to sign you up for automated weekly questionnaires through [email or web address]. This is an easy way for us to stay connected each week. Are you interested? No, I understand. We can always sign you up in the future if you change your mind. Just as a reminder, will continue to call you every other week to check in on your health. Our calls should take 10-15 minutes or less. Remember, if you have concerns in between our calls, please call your PCP's office right away. Thank you. Enter next patient outreach date for two weeks on the same day of the week as today in the Track Pt Outreach and End outreach. documented in this encounter [facility] 10-09-2022 Miscellaneous Notes Responded to patient. Called and left detailed message Informed patient that she needs to schedule a visit Per Bonita, patient needs to schedule appointment See the Alternative that is suggested for patient beside Mack. Patient phones requesting refills as follows: Requested Prescriptions Pending Prescriptions Disp Refills mirabegron (MYRBETRIQ) 25 mg Tb24 [Pharmacy Med Name: MYRBETRIQ ER 25 MG TABLET] 30 tablet 3 Sig: Take 1 tablet by mouth once daily. Please review and advise. Helga Castorena RN documented in this encounter [facility] 10-03-2022 Miscellaneous Notes SeekSherpat message sent Mammogram was ok. Recheck in six months documented in this encounter [facility] 10-03-2022 History of Present illness Narrative Radiology Service Progress Note PATIENT NAME: Cheryl Marrero DATE OF SERVICE: October 03, 2022 TIME: 9:19 AM PATIENT IDENTITY VERIFICATION COMPLETED USING TWO (2) IDENTIFIERS: Name and Date of confirmed by patient verbally. FALL SCREENING: Has the patient had 2 falls in the last year or 1 fall with injury or currently using an Ambulatory Assistive Device (Walker, Cane, Wheelchair, Crutches, etc.)? No PATIENT GENDER DATA: Female. status: : No status: NO. PATIENT RELEVANT IMPLANT DATA REVIEWED: Not Applicable RADIOLOGY DEPARTMENT: Mammography PERIPHERAL IV DATA: Not applicable SIGNED BY: RT Kaveh(R) October 03, 2022 9:19 AM documented in this encounter [facility] 10-01-2022 Miscellaneous Notes Spoke with pt.informed her blood counts and iron levels are doing well. She can return to the care of her PCP for periodic monitoring of her blood counts and iron. Can see her back for parental iron if needed in the future.Pt. voiced understanding. Peyton Ramirez LPN Can let her know blood counts and iron levels are doing well. She can return to the care of her PCP for periodic monitoring of her blood counts and iron. Can see her back. If she has Bell for parenteral iron in the future. Yash Kwan DO documented in this encounter [facility] 09-24-2022 Miscellaneous Notes Patient phones requesting refills as follows: Requested Prescriptions Pending Prescriptions Disp Refills ondansetron orally disintegrating (ZOFRAN ODT) 8 mg disintegrating tablet 20 tablet 0 Sig: Take 1 tablet by mouth every 8 hours as needed for nausea/vomiting. CATY 08/08/22 (virtual) NOV 10/15/22 Please review and advise. Stanton Arenas LPN documented in this encounter [facility] 09-17-2022 Miscellaneous Notes Patient has been identified by name and date of : Yes Requested Prescriptions Pending Prescriptions Disp Refills folic acid 1 mg tablet 90 tablet 3 Sig: Take 1 tablet by mouth once daily. RX INSTRUCTIONS: Patient aware RX will be sent to pharmacy. No need to notify patient. Kath Greenwood LPN documented in this encounter [facility] 09-13-2022 History of Present illness Narrative [facility] TELEPHONIC OUTREACH Provider Action/FYI: [facility] ? M asthma Contact made with patient: No - Left message Ara my name is Steve Freedman RN your Butcher from the [facility] I am calling today for your bi-weekly check in. I am sorry I missed your call. I will reach out to you again tomorrow. (if the third call I will reach out to you again next week) Enter next patient outreach date for the following day using the Track Pt Outreach. End outreach. documented in this encounter [facility] 08-21-2022 Miscellaneous Notes Patient has been identified by name and date of : YesPatient phones for refill(s): Requested Prescriptions Pending Prescriptions Disp Refills ondansetron orally disintegrating (ZOFRAN ODT) 8 mg disintegrating tablet 20 tablet 0 Sig: Take 1 tablet by mouth every 8 hours as needed for nausea/vomiting. Date of last office visit in primary care: 08/08/22 Please advise. Thank you. Afia Camacho LPN documented in this encounter [facility] 08-16-2022 History of Present illness Narrative ANAMARIA CLAUDIO TELEPHONIC OUTREACH Provider Action/FYI: CHUCK Introduced this PCC in vm message Contact made with patient: No - Left message Hello my name is Steve Freedman RN your Butcher from the [facility] I am calling today for your bi-weekly check in. I am sorry I missed your call. I will reach out to you again tomorrow. (if the third call I will reach out to you again next week) Enter next patient outreach date for the following using the Track Pt Outreach. End outreach. documented in this encounter [facility] 08-15-2022 Miscellaneous Notes [facility] OUTREACH Provider Action/FYI: Patient started with Covid symptoms 8 days ago. Tested positive 7 days ago. Patient has not had a fever and feels well. Did a home test today that showed positive results. Patient concerned as she feels well, has question regarding retest. Explained to patient that virus could be shed for up to 3 months. To go by symptoms. Patient states that she is almost completely better. Patient understands to go by symptoms, has quarantined for 8 days already. Will wear a mask when out. Ara, you've reached [facility], my name is Renee Morris RN, I'm a registered nurse, and we are on a recorded line. Patient identified by name and date of Spoke with patient Verify that the patient is a [facility] patient: Yes Are you having any symptoms today? No - What is the reason for call? General Questions/Other Need Call Disposition: Managed by H@H RN Thank you for calling [facility]. If you develop any new symptoms, your condition worsens, then GO TO THE EMERGENCY ROOM OR CALL 911. If you have any questions, please call us back. documented in this encounter [facility] 08-14-2022 Miscellaneous Notes Please advise to come in for urine and blood testing fro night sweats. Telephone on 08/14/22 TSH BLD CBC + DIFF C-REACTIVE PROTEIN (CRP) SED RATE WESTERGREN BLOOD TB SCREEN URINALYSIS, WITH MICROSCOPIC HIV 1 2 COMBO(AG/AB),WITH REFLEX TO DIFFERENTIATION URINE CULTURE BLOOD CULTURE Thanks, Toney Bellamy, PA-C documented in this encounter [facility] 08-10-2022 Miscellaneous Notes Pt called and is notified of providers message. Pt voices understanding. Nikki Hua RN Left message for patient to return call. Bibi Scott Ma There is no way to really know- I have only had one case in which I prescribed attributed to the medicine. I would venture a try hopping it would allay symptoms and if any thing worse, can always stop. Toney Singh PA-C Pt called and she has the Paxlovid medication at home and has to decided if she is going to take ir or not. She would need to start today 08/10/22. Pt started with diarrhea today. Question: Pt asking if she should take the Paxlovid. Side effect she read for the medication is diarrhea and if she already has this she is concerned whether to take medication or not. Please advise pt. Lorena Thomas LPN documented in this encounter [facility] 08-08-2022 History of Present illness Narrative [facility] CDM Enrollment Provider Action/FYI: Ara coombs is Beverly Miles RN your nurse Butcher. I am calling to provide you with a phone number to connect you with [facility] services. This number is available 7 days a week from 8am-8pm and provides you with one call access to nursing, appointments, and other valuable resources. I can also send this information to your [employer]. Please take the time to write this number down . - per pt, she has covid and is doing fine - denies needs or concerns at this time Patient referred by: [facility] Eladio Contact made with patient: Yes - Patient identified by name and . Discussed care with patient Ara this is Beverly Miles, RN and I am calling from Layla Bellamy PA-C office at the [facility]. I am a RN Butcher with our [facility] program. Layla Bellamy PA-C wanted me to reach out to help you manage your health at home. Our goal is to keep you well at home. We want to help you manage your chronic disease by providing a safety net of resources around you, getting you the care you need in a timely manner, and hopefully keep you out of the ED and hospital. I will send you a few questions once a week through your [employer] account. It will automatically show up for you to complete. There are simple questions that will help us identify if you have any concerns or symptoms and I will call you to help get what you need. We will be able to connect you, review your symptoms, do an on demand visit, or communicate with Layla Bellamy PA-C if needed. I am going to sign you up for the program now. Enrollment Questions: Let's get you enrolled in the program. Yes, Do you have regular access to a computer/smartphone? No, Are you offering patient a biweekly phone call? yes/no: Yes. Goal Setting: I would like to take some time today to discuss your personal health goals. Patient does not have a goal. We will review during our next conversations to help support you. Most people know what to do to become healthier, yet struggle to put it into action on their own.It can be hard to maintain a healthy lifestyle, especially when life is so stressful. Can we connect you with a [facility] Health Fundraising Director to find a program that could help you meet your goals? No Closing: Patient accepts telephonic outreach Thank you for your time today. I am excited to work together in managing your health! I will check back within in two weeks to see how things are going. If questions or concerns arise between phone calls, please reach out to your PCP s office. (Place in active status for inSight and place name in care team and update next patient outreach data to next business day two weeks from today s date) documented in this encounter [facility] 08-07-2022 Miscellaneous Notes Noted. Dominga Ann APRN.CNP Patient returned call and states she did a home covid test and results are positive. States she is interested in taking the paxlovid. Scheduled VV with provider for tomorrow. Patient will keep covid results to show provider. S/s started yesterday. Patient aware she needs to quarantine for 5 days, then if after 5 days, she has no fever, without the use of fever reducing medication for 24 hours, may come out of quarantine, then wear a mask around people for 5 additional days. Patient calling to state her is at a nursing facility and has tested positive for covid today. Patient reports she has been visiting him daily and she has begun with cold symptoms yesterday. Currently with cough, nasal congestion, fullness in ears, sleeping more than usual and slight headache. Denies fever, chills, SOB, body aches, chest pain, nausea, vomiting, diarrhea, or lightheadedness. Patient states her friend will be bringing her a home COVID test this afternoon to complete. Patient encouraged to call PCP office if tests positive, to be advised of any further PCP recommendations. Also informed to call for any questions or worsening symptoms. Red flag symptoms reviewed as to when to seek ER. Fauzia Renee RN documented in this encounter [facility] 07-10-2022 Instructions Denisa Romero APRN.CNP - 07/10/2022 10:41 AM EST 1.Start Meclizine 2. If no improvement in symptoms let us know so that a consult for ENT may be placed 3. Use Debrox drops in ears daily to help soften and eliminate cerumen. Cerumen Impactions Earwax, or cerumen, is made by the glands in the skin of the ear canal. If it is made in excess or is very dry, a blockage or impaction may result. Q-tips are usually not advised for ear cleaning. Instead, try the following: Turn her head to one side and gently fill the ear canal with baby oil for mineral oil, using an eye dropper. Allow oil to soak in for a minute or two before turning over and placing the oil in the opposite ear. Do this once or twice a day for 3 to 4 days. This will allow the wax to soften. For the next 3 or 4 days, gently fill the ear canals with 3% hydrogen peroxide in the same manner that you instiledl the oil. The hydrogen peroxide is available at your local pharmacy or grocery store and will usually bubble out the earwax once it has become soft. Caution: If you have ventilating (myringotomy) tubes in your ears, dilute the hydrogen peroxide in half with water; discontinue the hydrogen peroxide if you have any discomfort, dizziness, or drainage. For stubborn ear cerumen (wax) impactions, it may be necessary to continue the oil and peroxide for a few weeks or have it removed by your doctor. People who are frequently troubled by wax impactions may want to use the oil and peroxide on a monthly basis. If you have any further questions do not hesitate to ask. documented in this encounter [facility] 07-10-2022 History of Present illness Narrative Chief Complaint Patient presents with: Dizziness HPI Cheryl Marrero is a 77 year old female who presents here today for Above Complaints.. Patient reports that dizziness started on Saturday but patient reports having nausea, headache, and ear pain. Patient denies using OTC medications. Patient reports turning makes symptoms worse. Nothing improves symptoms. Past medical history, appointments, medications, allergies reviewed. Previous Medical History PAST MEDICAL HISTORY Diagnosis Date Anxiety state, unspecified Arthritis Asthma Coronary artery disease Diverticulosis of colon (without mention of hemorrhage) Hemorrhage of gastrointestinal tract, unspecified Localized osteoarthrosis not specified whether primary or secondary, lower leg Lung nodules Myalgia Obstructive sleep apnea Other and unspecified hyperlipidemia Seasonal allergies Shingles 01/2017 Urge urinary incontinence Previous Surgical History PAST SURGICAL HISTORY Procedure Laterality Date ABDOMINAL SURGERY HX BREAST CYST PUNCTURE/BC CHOLECYSTECTOMY 04/09/2000 lap choley COLONOSCOPY - DIAGNOSTIC 11/01/2000 COLONOSCOPY FLX DX W/COLLJ SPEC WHEN PFRMD 09/09/2008 Colonoscopy COLONOSCOPY FLX DX W/COLLJ SPEC WHEN PFRMD 07/01/2014 Colonoscopy COLONOSCOPY FLX DX W/COLLJ SPEC WHEN PFRMD 11/05/2019 Colonoscopy COLONOSCOPY FLX DX W/COLLJ SPEC WHEN PFRMD 06/13/2021 ECHOCARDIOGRAM 04/24/2021 echo: LV small, LV SF WNL, EF 65%, grade 1 LVDD. All wall motion score normal. RV size and RV SF WNL, RVSP 38 mmHg consistent with mild pulmonary hypertension. LA and RA normal in size, inferior vena cava normal. MV: 0-1+ MVR, TV normal, 0-1+ TR, AV normal, PV not seen, 0-1+ FL. Mid a sending aorta 3.2 cm. Echocardiogram pulmonary arteries not interrogated, no pericardial effusion ESOPHAGOGASTRODUODENOSCOPY TRANSORAL DIAGNOSTIC 11/05/2019 EGD ESOPHAGOGASTRODUODENOSCOPY TRANSORAL DIAGNOSTIC 06/13/2021 EYE SURGERY HX HEMORRHOIDECTOMY INTERNAL RUBBER BAND LIGATIONS 11/05/2019 PICC LINE INSERT/CONSULT 08/24/2021 SKIN BIOPSY HX TONSILLECTOMY HX TONSILLECTOMY PRIMARY/SECONDARY <AGE 11 TOTAL KNEE REPLACEMENT Family History FAMILY HISTORY Problem Relation Age of Onset Ischemic Heart Disease Father PASSED FROM [place] Diabetes Father Ischemic Heart Disease Mother PASSED FROM [place] Coronary Artery Disease Brother stent Diabetes Sister Cancer Maternal Grandfather lung Cancer Paternal Grandfather lung Patient Allergies ALLERGIES Allergen Reactions Phenergan [Prometha* Mental Status Change, Intolerance Wuzvykw-Xip-Few Red* Other: See Comments Elevated liver enzymes in hospital, statins stopped. Adhesive Rash Breo Ellipta [Fluti* Other: See Comments Hoarseness/ Shortness of breath Penicillins Other: See Comments Local reaction at site of injection Roxicodone [Oxycodo* Intolerance Severe nausea and lightheadness Sulfa (Sulfonamide * Vancomycin Other: See Comments redness Current Medications Current Outpatient Medications on File Prior to Visit Medication Sig buPROPion XL (WELLBUTRIN XL) 150 mg 24 hr tablet Take 1 tablet by mouth once daily. vibegron (GEMTESA) 75 mg tablet Take 1 tablet by mouth once daily. meloxicam (MOBIC) 7.5 mg tablet Take 1 tablet by mouth once daily. rosuvastatin (CRESTOR) 5 mg tablet Take 1 tablet by mouth daily at bedtime. metoprolol succinate ER (TOPROL XL) 25 mg 24 hr tablet Take 1 tablet by mouth twice daily. lansoprazole (PREVACID) 30 mg capsule Take 1 capsule by mouth once daily. ascorbic acid (VITAMIN C ORAL) Take 1 tablet by mouth once daily. busPIRone (BUSPAR) 5 mg tablet Take 1 tablet by mouth three times daily. ondansetron orally disintegrating (ZOFRAN ODT) 8 mg disintegrating tablet Take 1 tablet by mouth every 8 hours as needed for nausea/vomiting. ondansetron (ZOFRAN) 4 mg tablet Take 1 tablet by mouth every 8 hours as needed. CPAP folic acid 1 mg tablet Take 1 tablet by mouth once daily. polyethylene glycol 3350 (MIRALAX ORAL) Take 1 Tablespoonful by mouth as needed. acetaminophen (TYLENOL) 500 mg tablet Take 2 tablets by mouth every 8 hours as needed. fluticasone (FLONASE) 50 mcg/actuation nasal spray Use 1 [place] in each nostril once daily. albuterol HFA (PROAIR HFA) 90 mcg/actuation inhaler Inhale 2 Puffs as instructed every 6 hours as needed. vitamin B complex (B COMPLEX 1 ORAL) Take 1 tablet by mouth once daily. cholecalciferol (VITAMIN D3) 1,000 unit tab tablet Take 1,000 Units by mouth once daily. Current Facility-Administered Medications on File Prior to Visit Medication perflutren lipid microspheres 1.3 mL in NaCl (PF) 0.9% 10 mL injection (DEFINITY) sodium chloride 0.9 % (flush) 10 mL (BD POSIFLUSH) Social History Social History Tobacco Use Smoking status: Never Smokeless tobacco: Never Tobacco comments: Lived with smokers in childhood home and until 2002. Vaping Use Vaping Use: Never used Substance Use Topics Alcohol use: No Drug use: No Review of Symptoms REVIEW OF SYSTEMS See HPI EXAM: BP 132/78 Pulse 63 Resp 14 Wt 68.5 kg (151 lb) SpO2 99% BMI 23.65 kg/m General Appearance: Well appearing, alert, in no acute distress, well-hydrated, well nourished.. Head: Normocephalic, no masses, lesions, tenderness or abnormalities. Ears: Positive findings: cerumen bilaterally, amount Large. Nose/Sinuses: Nares normal, septum midline, mucosa normal, no drainage or sinus tenderness. Oropharynx: Lips, mucosa, and tongue normal, teeth and gums normal, oropharynx normal. Lungs: Lungs clear to auscultation. No wheezing, rhonchi, rales.. Heart: RRR without murmur, gallop, or rubs. No ectopy. Neurologic: Gait normal. Reflexes normal and symmetric. Sensation grossly intact.. Health Maintenance List HEPATITIS C SCREENING Never done DEPRESSION ASSESSMENT Never done COVID-19 VACCINE(5 - Booster for Moderna series) due on 06/07/2022 DTAP,TDAP,TD(1 - Tdap) due on 01/08/2023 SHINGRIX VACCINE(2 of 3) due on 01/08/2023 ANNUAL PCP TEAM CHRONIC DISEASE VISIT due on 04/12/2023 DIABETES SCREEN due on 01/02/2025 BONE DENSITY Completed SPIROMETRY Completed INFLUENZA Completed ADVANCE DIRECTIVE DISCUSSION Completed PNEUMOCOCCAL: 65+ Completed ASSESSMENT/PLAN: 1. Vertigo - ICD9: 780.4, ICD10: R42 (primary diagnosis) -Likely secondary to impacted cerumen -MECLIZINE 12.5mg every 6 hours as needed. 2. Bilateral impacted cerumen - ICD9: 380.4, ICD10: H61.23 -Bilateral ears irrigated with 50/50 solution peroxide and warm water -Cerumen unable to be disimpacted in office, recommended debrox drops to help soften cerumen. -If symptoms persist would recommend ENT for further evaluation Denisa Romero APRN.ROOF BOLTER OPERATOR documented in this encounter [facility] 07-05-2022 Miscellaneous Notes Patient has been identified by name and date of : Yes Patient phones for refill(s): Requested Prescriptions Pending Prescriptions Disp Refills meloxicam (MOBIC) 7.5 mg tablet 30 tablet 0 Sig: Take 1 tablet by mouth once daily. Date of last office visit with pcp: 05/03/2022 Future appt: none Last 2 Encounter Wt Readings: Date: Wt: 07/04/2022 68.5 kg (151 lb) 05/03/2022 69.9 kg (154 lb) Previous labs/tests for medication: Blood Pressure: BUN (mg/dL) Date Value 01/02/2022 17 08/22/2021 16 Sodium (mmol/L) Date Value 01/02/2022 141 08/22/2021 137 Last 1 Encounter BP Readings: Date: BP: 07/04/2022 128/62 Liver Function: ALT (U/L) Date Value 01/02/2022 12 06/29/2021 9 AST (U/L) Date Value 01/02/2022 21 06/29/2021 13 Please advise. Thank you. Rhiannon Hinds RN documented in this encounter [facility] 07-05-2022 Miscellaneous Notes Patient has been identified by name and date of : Yes Patient phones for refill(s): Requested Prescriptions Pending Prescriptions Disp Refills vibegron (GEMTESA) 75 mg tablet 30 tablet 0 Sig: Take 1 tablet by mouth once daily. Date of last office visit with pcp: 12/20/2020 Future appt: none Last 2 Encounter Wt Readings: Date: Wt: 07/04/2022 68.5 kg (151 lb) 05/03/2022 69.9 kg (154 lb) Previous labs/tests for medication: Blood Pressure: BUN (mg/dL) Date Value 01/02/2022 17 08/22/2021 16 Sodium (mmol/L) Date Value 01/02/2022 141 08/22/2021 137 Last 1 Encounter BP Readings: Date: BP: 07/04/2022 128/62 Liver Function: ALT (U/L) Date Value 01/02/2022 12 06/29/2021 9 AST (U/L) Date Value 01/02/2022 21 06/29/2021 13 Please advise. Thank you. Rhiannon Hinds RN documented in this encounter [facility] 07-05-2022 Miscellaneous Notes Patient has been identified by name and date of : Yes Patient phones for refill(s): Requested Prescriptions Pending Prescriptions Disp Refills buPROPion XL (WELLBUTRIN XL) 150 mg 24 hr tablet 30 tablet 5 Sig: Take 1 tablet by mouth once daily. Date of last office visit with pcp: 04/12/2022 Future appt: 10/15/2022 Last 2 Encounter Wt Readings: Date: Wt: 07/04/2022 68.5 kg (151 lb) 05/03/2022 69.9 kg (154 lb) Previous labs/tests for medication: Blood Pressure: BUN (mg/dL) Date Value 01/02/2022 17 08/22/2021 16 Sodium (mmol/L) Date Value 01/02/2022 141 08/22/2021 137 Last 1 Encounter BP Readings: Date: BP: 07/04/2022 128/62 Liver Function: ALT (U/L) Date Value 01/02/2022 12 06/29/2021 9 AST (U/L) Date Value 01/02/2022 21 06/29/2021 13 Please advise. Thank you. Rhiannon Hinds RN documented in this encounter [facility] 07-04-2022 History of Present illness Narrative Images from the original note were not included. [facility] V[facility] [place] Department of Cardiovascular Medicine SECTION OF CLINICAL CARDIOLOGY OUTPATIENT VISIT DATE July 04, 2022 OUTPATIENT VISIT TYPE ESTABLISHED PRIMARY CARE PHYSICIAN: Layla Bellamy [address] [place] [address] CHIEF COMPLAINT: Follow up HISTORY OF PRESENT ILLNESS: Ms. Marrero is a 77 year old female with history of mitral regurgitation, HTN, HLD, RAVIN, mild pHTN, asthma, PIO, GERD, and IBS who presents today for a cardiovascular medicine follow-up visit. She was last seen in the office by Dr. Alejandra on 08/04/2021 at which time she was doing well from a cardiovascular standpoint and no additions or changes were made at that time. 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 She has since recovered and has been doing well. Her is currently in an assisted living facility which keeps her busy visiting him multiple days per week. She admits that she has not been using her CPAP since her hospitalization at the beginning of the year as she got out of the habit of doing so. She has not been monitoring her heart rate or blood pressure daily at home. She is not participating in daily aerobic exercise. She denies any shortness of breath, chest pain, palpitations, dizziness, lightheadedness, lower extremity edema, PND, orthopnea, presyncope, syncope, or claudication symptoms. Subjective PAST MEDICAL HISTORY Diagnosis Date Anxiety state, unspecified Arthritis Asthma Coronary artery disease Diverticulosis of colon (without mention of hemorrhage) Hemorrhage of gastrointestinal tract, unspecified Localized osteoarthrosis not specified whether primary or secondary, lower leg Lung nodules Myalgia Obstructive sleep apnea Other and unspecified hyperlipidemia Seasonal allergies Shingles 01/2017 Urge urinary incontinence PAST SURGICAL HISTORY Procedure Laterality Date ABDOMINAL SURGERY HX BREAST CYST PUNCTURE/BC CHOLECYSTECTOMY 04/09/2000 lap choley COLONOSCOPY - DIAGNOSTIC 11/01/2000 COLONOSCOPY FLX DX W/COLLJ SPEC WHEN PFRMD 09/09/2008 Colonoscopy COLONOSCOPY FLX DX W/COLLJ SPEC WHEN PFRMD 07/01/2014 Colonoscopy COLONOSCOPY FLX DX W/COLLJ SPEC WHEN PFRMD 11/05/2019 Colonoscopy COLONOSCOPY FLX DX W/COLLJ SPEC WHEN PFRMD 06/13/2021 ECHOCARDIOGRAM 04/24/2021 echo: LV small, LV SF WNL, EF 65%, grade 1 LVDD. All wall motion score normal. RV size and RV SF WNL, RVSP 38 mmHg consistent with mild pulmonary hypertension. LA and RA normal in size, inferior vena cava normal. MV: 0-1+ MVR, TV normal, 0-1+ TR, AV normal, PV not seen, 0-1+ FL. Mid a sending aorta 3.2 cm. Echocardiogram pulmonary arteries not interrogated, no pericardial effusion ESOPHAGOGASTRODUODENOSCOPY TRANSORAL DIAGNOSTIC 11/05/2019 EGD ESOPHAGOGASTRODUODENOSCOPY TRANSORAL DIAGNOSTIC 06/13/2021 EYE SURGERY HX HEMORRHOIDECTOMY INTERNAL RUBBER BAND LIGATIONS 11/05/2019 PICC LINE INSERT/CONSULT 08/24/2021 SKIN BIOPSY HX TONSILLECTOMY HX TONSILLECTOMY PRIMARY/SECONDARY <AGE 11 TOTAL KNEE REPLACEMENT Social History Tobacco Use Smoking status: Never Smokeless tobacco: Never Tobacco comments: Lived with smokers in childhood home and until 2002. Vaping Use Vaping Use: Never used Substance Use Topics Alcohol use: No Drug use: No FAMILY HISTORY Problem Relation Age of Onset Ischemic Heart Disease Father PASSED FROM [place] Diabetes Father Ischemic Heart Disease Mother PASSED FROM [place] Coronary Artery Disease Brother stent Diabetes Sister Cancer Maternal Grandfather lung Cancer Paternal Grandfather lung ALLERGIES: ALLERGIES Allergen Reactions Phenergan [Prometha* Mental Status Change, Intolerance Troutnq-Pha-Smh Red* Other: See Comments Elevated liver enzymes in hospital, statins stopped. Adhesive Rash Breo Ellipta [Fluti* Other: See Comments Hoarseness/ Shortness of breath Penicillins Other: See Comments Local reaction at site of injection Roxicodone [Oxycodo* Intolerance Severe nausea and lightheadness Sulfa (Sulfonamide * Vancomycin Other: See Comments redness MEDICATIONS: vibegron (GEMTESA) 75 mg tablet^Take 1 tablet by mouth once daily.^Disp: 30 tablet^Rfl: 0 lansoprazole (PREVACID) 30 mg capsule^Take 1 capsule by mouth once daily.^Disp: 90 capsule^Rfl: 3 ascorbic acid (VITAMIN C ORAL)^Take 1 tablet by mouth once daily.^Disp: ^Rfl: busPIRone (BUSPAR) 5 mg tablet^Take 1 tablet by mouth three times daily.^Disp: 270 tablet^Rfl: 1 ondansetron orally disintegrating (ZOFRAN ODT) 8 mg disintegrating tablet^Take 1 tablet by mouth every 8 hours as needed for nausea/vomiting.^Disp: 20 tablet^Rfl: 0 ondansetron (ZOFRAN) 4 mg tablet^Take 1 tablet by mouth every 8 hours as needed.^Disp: 9 tablet^Rfl: 3 buPROPion XL (WELLBUTRIN XL) 150 mg 24 hr tablet^Take 1 tablet by mouth once daily.^Disp: 30 tablet^Rfl: 5 CPAP^^Disp: ^Rfl: folic acid 1 mg tablet^Take 1 tablet by mouth once daily.^Disp: 90 tablet^Rfl: 3 polyethylene glycol 3350 (MIRALAX ORAL)^Take 1 Tablespoonful by mouth as needed. ^Disp: ^Rfl: acetaminophen (TYLENOL) 500 mg tablet^Take 2 tablets by mouth every 8 hours as needed.^Disp: ^Rfl: fluticasone (FLONASE) 50 mcg/actuation nasal spray^Use 1 [place] in each nostril once daily.^Disp: ^Rfl: albuterol HFA (PROAIR HFA) 90 mcg/actuation inhaler^Inhale 2 Puffs as instructed every 6 hours as needed.^Disp: 18 g^Rfl: 11 vitamin B complex (B COMPLEX 1 ORAL)^Take 1 tablet by mouth once daily. ^Disp: ^Rfl: cholecalciferol (VITAMIN D3) 1,000 unit tab tablet^Take 1,000 Units by mouth once daily.^Disp: ^Rfl: rosuvastatin (CRESTOR) 5 mg tablet^Take 1 tablet by mouth daily at bedtime.^Disp: 90 tablet^Rfl: 3 metoprolol succinate ER (TOPROL XL) 25 mg 24 hr tablet^Take 1 tablet by mouth twice daily.^Disp: 180 tablet^Rfl: 3 REVIEW OF SYSTEMS: CARD: See HPI GENERAL: Negative for: Weight loss or gain, Fever and/or Chills HEENT: Negative for: Headache, Impaired Vision, Glasses, Hearing Impairment, Ringing in Ears, Nosebleeds, Bleeding Gums NECK: Negative for: Swelling, Pain, Stiffness RESPIRATORY: Negative for: Cough, Blood in Sputum, Shortness of breath, Wheezing, Apnea GASTROINTESTINAL: Negative for: Nausea, Vomiting, Diarrhea, Blood in stool, or Dark black stools MUSCULOSKELETAL: +L knee pain NEUROLOGIC: Negative for: focal numbness/weakness, headaches, visual changes, ataxia, speech/language loss SKIN: Negative for: Rashes, Itching HEMATOLOGICAL/LYMPHATIC: Negative for: Easy bruising , Easy bleeding ENDOCRINE: Negative for: Heat or cold intolerance, Excessive sweating, Frequent urination, Frequent thirst Objective PHYSICAL EXAMINATION: BP 128/62 (BP Site: Right Arm, BP Position: Sitting, BP Cuff Size: Regular Adult) Pulse 71 Ht 170.2 cm (5' 7) Wt 68.5 kg (151 lb) SpO2 99% BMI 23.65 kg/m General: Well appearing, in no acute distress. Skin: No clubbing, no cyanosis. Eyes: Extra ocular movements intact Oropharynx: Teeth in good repair. Neck: No jugular venous distention, no carotid bruits, carotids have a normal upstroke. Lungs: Clear to auscultation bilaterally, no wheezing or rhonchi. Heart: Regular rhythm, S1, S2 normal, no S3, no S4, no heaves, no rub and 1/6 PONCE LSB. No peripheral edema . Grade 2/4 distal pulses bilaterally. Abdomen: Soft, nontender, bowel sounds normal, no bruits. Neuro: Oriented to person, place and time, alert, cooperative, gait coordinated. CARDIOVASCULAR MEDICINE TESTING: Last EKG Result Conclusion ECG COMPLETE Collected: 08/04/2021 1:14 PM (Final result) Impression: NORMAL SINUS RHYTHM NONSPECIFIC ST ABNORMALITY ABNORMAL ECG Confirmed by BECK ALEJANDRA D.O. ([id number]) on 08/31/2021 4:43:38 PM Echocardiogram 04/24/2021: - The left ventricle is small. Left ventricular systolic function is normal. EF = 65 5% (2D biplane) Grade I left ventricular diastolic dysfunction. - The right ventricle is normal in size. Right ventricular systolic function is normal. Pharm MPI stress 06/05/2019: 1. SPECT Perfusion Study: Normal. 2. There is no scintigraphic evidence for inducible ischemia. 3. No evidence of scarred myocardium. 4. Functional capacity N/A (pharmacological). 5. Left ventricle is normal in size. The left ventricle systolic function is normal. 6. Right ventricle is normal in size. 7. This is a low risk scan. LVEF % 74 Electrocardiogram 07/04/22: Normal sinus rhythm at 68 bpm I have personally reviewed the Electrocardiogram. PLAN AND RECOMMENDATIONS: 1. Mitral regurgitation - Echo 12/2017 with moderate (2+) MR - Echo 05/2019 with mild (1+) MR - Echo 03/2021 with trace MR - Emphasis on afterload reduction - Periodic echocardiogram monitoring 2. Essential hypertension - Optimal control on Metoprolol Succinate 25 mg BID - Encouraged dietary sodium restriction/DASH diet - Reviewed risks of HTN and principles of treatment - Goal of BP <130/80 3. Mixed hyperlipidemia - Currently on Rosuvastatin 5 mg daily - Last lipid panel 12/2021 with LDL 64 - Normal LFTs 12/2021 - History of liver dysfunction on statin. Able to tolerate Crestor 4. Mild pulmonary hypertension - Most recent echo 03/2021 with RVSP 38 mmHg - Known RAVIN and asthma - Periodic echocardiogram monitoring - CPAP compliance encouraged 5. Obstructive sleep apnea - Noncompliant on CPAP - Follows with pulmonary, Dr. Mendiola in [place] - CPAP compliance encouraged CONCLUSION: Patient presents today for follow-up an appears to be doing well from a cardiovascular standpoint. Her mitral regurgitation was stable on most recent echocardiogram. Her heart rate, blood pressure, and cholesterol profile remain under favorable control. She does admit that she has not been using her CPAP since being discharged from the hospital in September. She does have mild pulmonary hypertension on her echo and the importance of CPAP compliance given her RAVIN and she is agreeable to restart her CPAP therapy at this time. I have made no additions or changes to her medications. She should continue to actively engage in cardiovascular risk factor modification and follow up with Dr. Alejandra in 6 months, or sooner should need arise. CONTACT INFORMATION: Agueda Jc APRN.BE Cardiology Nurse Practitioner Section of Regional Cardiology [place] Dept of Cardiovascular Medicine [facility] Heart and Vascular [place] [address] Office Office This note was partially generated using [employer] voice recognition system and may contain errors related to that system including grammar, punctuation, spelling, and words that may be inappropriate documented in this encounter [facility] 05-29-2022 Miscellaneous Notes Patient phones requesting refills as follows: Requested Prescriptions Pending Prescriptions Disp Refills vibegron (GEMTESA) 75 mg tablet 30 tablet 0 Sig: Take 1 tablet by mouth once daily. Please review and advise. Sent My Chart message about needing appt. Helga Castorena RN documented in this encounter [facility] 05-03-2022 History of Present illness Narrative Orthopaedic Office Note: May 03, 2022 1:45 PM Cheryl Marrero 76 year old History: In short, Cheryl is s/p irrigation and debridement, explant total knee and reimplant articulating antibiotic spacer on 08/21/21. She previously had a left total knee arthroplasty done by Dr. Huffman in December of 2020. She had been followed and worked up for painful total knee with positive inflammatory markers and aspirate which met diagnostic criteria for PJI. She presents today for follow up after explant and spacer with Dr. Calderon in July. She was last seen on 11/16/21 and started on Meloxicam for tendonitis. She still reports issue with this. She has been off antibiotics for 4 weeks. Last ESR and CRP 46 and 0.7 respectively. Subjective: She reports continued pain. She does state she has not been consistent with her therapy and exercises. She complains of numbness along the lateral aspect of her knee. She also complains of tingling and numbness to her bilateral feet. She states she also has pain in her knee and her thigh. She also complains of continued swelling. Updated ROS: No changes Updated Exam: Left Lower Extremity: KNEE EXAM: Left: Incision well healed without erythema or warmth Moderate swelling Range of motion is lacking a few degrees secondary to tight hamstrings degrees in extension and 120 degrees of flexion. Extension La degrees Pain with ROM: No Effusion: Mild Tender to the palpation of lateral patellofemoral facet Pain with patellar compression: Yes Notable quadriceps atrophy, strength 3+/5 Stability: Anterior/Posterior stable and Varus/Valgus stable Hip Exam: flexion to 100+ degrees, full extension, internal/external rotation adequate, and no pain with log roll Neurovascular Status: Sensation Intact, Moves foot and ankle up & down, and 2+ dorsalis pedis Updated Imaging: None today Assessment and Plan: Status post explant and implant articulating antibiotic spacer left knee We had a long discussion today. We stated full recovery from a revision surgery like this can take up to 1.5 years. She has not been actively participating in therapy and I suspect she has developed a lateralizing patella. She also continues to have quadriceps tendonitis. Her repeat inflammatory markers are stable and I do believe at this point she has recurrent infection. I prescribed more PT (VMO/quad strengthening) for her and instructed her to do her own daily exercises when not going to PT. I have also sent in a new prescription for mobic. New symptoms include low back pain with radicular symptoms. I did recommend a medical spine consultation which may be contributing to some of her knee symptoms but she declined. I will have her follow up in 4 weeks time. If symptoms have not improved will refer to medical spine. She was instructed on red warning signs since she is off antibiotics and instructed to contact office sooner if she develops any of these. I spent a total of 30 minutes on the date of the service which included preparing to see the patient, [id number] patient care, completing clinical documentation, obtaining and/or reviewing separately obtained history, performing a medically appropriate examination, counseling and educating the patient/family/caregiver, ordering medications, tests, or procedures, communicating with other HCPs (not separately reported), independently interpreting results (not separately reported), communicating results to the patient/family/caregiver, and care coordination (not separately reported). Gee Cantu APRN.CNP Orthopaedic Surgery documented in this encounter [facility] 04-23-2022 Miscellaneous Notes Patient informed and plans to get lab orders done this week Damaris Danielle MA Yes she should have blood work. Orders placed. Gee Cantu APRN.CNP April 23, 2022 7:30 AM Per CATY: 11/16/21 patient was to have repeat ESR and CRP prior to next appt, would you like patient to complete both these test before her up coming 05/03/22 appt? Please review and advise, thank you. Damaris Danielle MA Spoke with patient and let her know about message below. Patient made followup appointment. She has been on the antibiotics for > 6 months. Okay to discontinue at this time. Last blood work from December continued to remain low. If she is happy with her knee she can continue the course. If she is still having issues please arrange for an appointment with myself or Dr. Calderon in the next couple weeks. Gee Cantu APRN.CNP April 04, 2022 10:57 AM Patient is calling in asking if she needs to keep taking the doxycycline. She said she has only 1 pill left and there are no refills. Also asking if Dr. Calderon has looked at her blood work for inflammation. Patient is requesting phone call on cell at [phone] documented in this encounter [facility] 04-16-2022 Miscellaneous Notes Patient returned call and went over results, notes from Toney CERVANTES with understanding. Patient plans to pick up truck driver IFOBT in the next several days. Unable to reach patient. Left VM to return call to office. Please read below and advise. Nell Deal MA Images from the original note were not included. documented in this encounter [facility] 04-12-2022 History of Present illness Narrative 76 year old female with c/o here for follow up Doing pretty well mostly of late. Computer broke Saturday Son threatening suicide, manipulative- asking for money to pay for borrowed [employer] tickets. in ECF with post stroke dementia. 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 No inducible ischemia or myocardial scarring Current meds: Metoprolol succinate ER 25mg daily Rosuvastatin 5mg daily Use of NTG: No Chest pain, arm, jaw pain, neck, or upper back pain suggestive of angina: Yes. SOB: No Dyspnea with exertion: Yes orthopnea: No racing or irregular heartbeats: Yes palpitations: No syncopal sx: No Unexplainable fatigue No Leg swelling: No Nausea: No diaphoresis: Yes Heartburn: No Claudication: No Smoking: No Following Low cholesterol, high fiber diet? Yes If on statin: muscle aches? No If on statin: GI sx or diarrhea? No Additional history none. Mild pulmonary hypertension (hcc) Obstructive sleep apnea Lung nodules Mild persistent asthma without complication Sob (shortness of breath) Customer Experience Manager: Dr. Maury Murrell Interval history: 05/08/2013 [facility] Current medications: Albuterol MDI: not using Worsening shortness of breath: No. Cough: No. Wheezing: No. Smoking: No. Compliant with medications: Yes. Using rescue inhaler: none. Adjustment disorder with depressed mood Seeing Counselor Nikky Current meds: Buspar 5mg three times a day Buppropion XL 150mg Change in medication No. Currently in counseling? Yes. Any Medication side effects? No. PHQ-9 04/19/2021 01/08/2022 04/12/2022 Score 12 12 11 CHARMAINE - 7 SCORES 06/13/2017 01/08/2022 04/12/2022 CHARMAINE-7 Score 12 12 13 Failure of total knee replacement, initial encounter ([facility]) Stopped antibiotic Knee still gets warm. Swollen, discolored. Impaired activity Seeing ortho Spet 8. Iron deficiency anemia, unspecified iron deficiency anemia type Iron malabsorption Component Latest Ref Rng & Units 01/02/2022 03/28/2022 WBC 3.70 - 11.00 k/uL 8.47 7.19 RBC 3.90 - 5.20 m/uL 4.30 3.86 (L) Hemoglobin 11.5 - 15.5 g/dL 12.0 10.7 (L) Hematocrit 36.0 - 46.0 % 37.3 34.6 (L) MCV 80.0 - 100.0 fL 86.7 89.6 MCH 26.0 - 34.0 pg 27.9 27.7 MCHC 30.5 - 36.0 g/dL 32.2 30.9 RDW-CV 11.5 - 15.0 % 14.7 15.5 (H) Platelet Count 150 - 400 k/uL 358 359 MPV 9.0 - 12.7 fL 9.4 9.2 Neut% % 73.9 68.1 Abs Neut (ANC) 1.45 - 7.50 k/uL 6.26 4.89 Lymph% % 17.6 22.5 Abs Lymph 1.00 - 4.00 k/uL 1.49 1.62 [place]% % 5.8 5.8 Abs [place] <0.87 k/uL 0.49 0.42 Eosin% % 1.9 2.5 Abs Eosin <0.46 k/uL 0.16 0.18 Baso% % 0.6 0.7 Abs Baso <0.11 k/uL 0.05 0.05 Immature Gran % % 0.2 0.4 IMMATURE GRANS (ABS) <0.10 k/uL <0.03 0.03 NRBC /100 WBC 0.0 0.0 Absolute nRBC <0.01 k/uL <0.01 <0.01 DTYPE Auto Auto Iron 41 - 186 ug/dL 48 73 TIBC 232 - 386 ug/dL 224 (L) 246 Transferrin Saturation 15.0 - 57.0 % 21 29.7 Ferritin 14.7 - 205.1 ng/mL 722.0 (H) 639.0 (H) Irritable bowel syndrome with diarrhea Diarrhea daily 80% A few soft/ formed stools No black or tarry Has hemorrhoids with occasional bleeding Ipmn (intraductal papillary mucinous neoplasm) 03/28/2022 Mamm Rt diag: The multiple grouped heterogeneous calcifications in the right breast have a differential diagnosis of a degenerating fibroadenoma and are probably benign. A follow-up in 6 months is recommended. 02/19/2022 bilateral mammo:The multiple calcifications in the right breast are indeterminate. Additional views are recommended. Urge incontinence Current medications: Vibegron 75mg daily Improved control Nocturia: none A few accidents, minor. HISTORIES FAMILY HISTORY Problem Relation Age of Onset Ischemic Heart Disease Father PASSED FROM [place] Diabetes Father Ischemic Heart Disease Mother PASSED FROM [place] Coronary Artery Disease Brother stent Diabetes Sister Cancer Maternal Grandfather lung Cancer Paternal Grandfather lung PAST MEDICAL HISTORY Diagnosis Date Anxiety state, unspecified Arthritis Asthma Coronary artery disease Diverticulosis of colon (without mention of hemorrhage) Hemorrhage of gastrointestinal tract, unspecified Localized osteoarthrosis not specified whether primary or secondary, lower leg Lung nodules Myalgia Obstructive sleep apnea Other and unspecified hyperlipidemia Seasonal allergies Shingles 01/2017 Urge urinary incontinence PAST SURGICAL HISTORY Procedure Laterality Date ABDOMINAL SURGERY HX BREAST CYST PUNCTURE/BC CHOLECYSTECTOMY 04/09/2000 lap choley COLONOSCOPY - DIAGNOSTIC 11/01/2000 COLONOSCOPY FLX DX W/COLLJ SPEC WHEN PFRMD 09/09/2008 Colonoscopy COLONOSCOPY FLX DX W/COLLJ SPEC WHEN PFRMD 07/01/2014 Colonoscopy COLONOSCOPY FLX DX W/COLLJ SPEC WHEN PFRMD 11/05/2019 Colonoscopy COLONOSCOPY FLX DX W/COLLJ SPEC WHEN PFRMD 06/13/2021 ECHOCARDIOGRAM 04/24/2021 echo: LV small, LV SF WNL, EF 65%, grade 1 LVDD. All wall motion score normal. RV size and RV SF WNL, RVSP 38 mmHg consistent with mild pulmonary hypertension. LA and RA normal in size, inferior vena cava normal. MV: 0-1+ MVR, TV normal, 0-1+ TR, AV normal, PV not seen, 0-1+ FL. Mid a sending aorta 3.2 cm. Echocardiogram pulmonary arteries not interrogated, no pericardial effusion ESOPHAGOGASTRODUODENOSCOPY TRANSORAL DIAGNOSTIC 11/05/2019 EGD ESOPHAGOGASTRODUODENOSCOPY TRANSORAL DIAGNOSTIC 06/13/2021 EYE SURGERY HX HEMORRHOIDECTOMY INTERNAL RUBBER BAND LIGATIONS 11/05/2019 PICC LINE INSERT/CONSULT 08/24/2021 SKIN BIOPSY HX TONSILLECTOMY HX TONSILLECTOMY PRIMARY/SECONDARY <AGE 11 TOTAL KNEE REPLACEMENT Social History Tobacco Use Smoking status: Never Smokeless tobacco: Never Tobacco comments: Lived with smokers in childhood home and until 2002. Vaping Use Vaping Use: Never used Substance Use Topics Alcohol use: No Drug use: No ACTIVE PROBLEM LIST Internal Hemorrhoids Without Mention of Complication Diverticulosis of Colon (Without Mention of Hemorrhage) Hyperlipidemia Adjustment Disorder With Depressed Mood Urge Incontinence Gerd (Gastroesophageal Reflux Disease) Urinary Frequency Irritable Bowel Syndrome With Diarrhea Mild Persistent Asthma Without Complication Ipmn (Intraductal Papillary Mucinous Neoplasm) Ddd (Degenerative Disc Disease), Lumbar Bppv (Benign Paroxysmal Positional Vertigo), Unspecified Laterality Seasonal Allergies Obstructive Sleep Apnea Lung Nodules Non-Rheumatic Mitral Regurgitation Chronic Pain of Right Upper Extremity Chronic Pain of Left Knee Chronic Bilateral Low Back Pain Mild Pulmonary Hypertension (Hcc) S/P Total Knee Arthroplasty, 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 90 capsule 3 ascorbic acid (VITAMIN C ORAL) Take 1 tablet by mouth once daily. doxycycline (VIBRA-TABS) 100 mg tablet Take 1 tablet by mouth twice daily. 180 tablet 0 busPIRone (BUSPAR) 5 mg tablet Take 1 tablet by mouth three times daily. 270 tablet 1 ondansetron orally disintegrating (ZOFRAN ODT) 8 mg disintegrating tablet Take 1 tablet by mouth every 8 hours as needed for nausea/vomiting. 20 tablet 0 ondansetron (ZOFRAN) 4 mg tablet Take 1 tablet by mouth every 8 hours as needed. 9 tablet 3 metoprolol succinate ER (TOPROL XL) 25 mg 24 hr tablet Take 1 tablet by mouth twice daily. 180 tablet 3 buPROPion XL (WELLBUTRIN XL) 150 mg 24 hr tablet Take 1 tablet by mouth once daily. 30 tablet 5 vibegron (GEMTESA) 75 mg tablet Take 1 tablet by mouth once daily. 30 tablet 5 CPAP meloxicam (MOBIC) 7.5 mg tablet Take 1 tablet by mouth once daily. 30 tablet 0 folic acid 1 mg tablet Take 1 tablet by mouth once daily. 90 tablet 3 rosuvastatin (CRESTOR) 5 mg tablet TAKE 1 TABLET BY MOUTH EVERYDAY AT BEDTIME 90 tablet 3 polyethylene glycol 3350 (MIRALAX ORAL) Take 1 Tablespoonful by mouth as needed. acetaminophen (TYLENOL) 500 mg tablet Take 2 tablets by mouth every 8 hours as needed. fluticasone (FLONASE) 50 mcg/actuation nasal spray Use 1 [place] in each nostril once daily. albuterol HFA (PROAIR HFA) 90 mcg/actuation inhaler Inhale 2 Puffs as instructed every 6 hours as needed. 18 g 11 vitamin B complex (B COMPLEX 1 ORAL) Take 1 tablet by mouth once daily. cholecalciferol (VITAMIN D) 1,000 unit tab tablet Take 1,000 Units by mouth once daily. Current Facility-Administered Medications Medication Dose Route Frequency Provider Last Rate Last Admin perflutren lipid microspheres 1.3 mL in NaCl (PF) 0.9% 10 mL injection (DEFINITY) INTRAVENOUS DIRECTED PRN Hailee Valdez PA-C sodium chloride 0.9 % (flush) 10 mL (BD POSIFLUSH) 10 mL INTRAVENOUS DIRECTED PRN Hailee Valdez PA-C HEPATITIS C SCREENING Never done COVID-19 VACCINE(4 - Booster for Moderna series) due on 12/28/2021 EXAM: BP 122/64 Pulse 74 Resp 16 Wt 69.9 kg (154 lb) SpO2 96% BMI 25.24 kg/m Pleasant adult woman in no acute distress. Alert and oriented all spheres. Mood is improving- brighter today but still melancholy. Normal affect and cognition. Speech normal. No deficits to learning or comprehension. Skin warm, dry, pink to lips and nailbeds. Normal turgor. Respirations regular and unlabored. HEENT: NCAT. No scleral icterus or conjunctival injection. TM's clear. Nose and oropharynx free from injection or lesion. Oral membranes moist and pink. No cervical lymph nodes. Thyroid non-tender, no masses, or enlargement. Carotids pulses 2+/4+ without bruits. Chest is normal shape. Lungs are clear to all [place] with good air exchange through out. HRRR without murmur or gallop. No lifts, heaves, or rubs. Extrem: no clubbing or cyanosis. Edema: none. Moderate left knee swelling, restricted ROM flex 100 degrees, ext to 10 degrees flexion. Tender on palpation anteriorly and posteriorly. Extremities are warm and pink with prompt capillary refill. ASSESSMENT/PLAN: 1. 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 Non-rheumatic mitral regurgitation - ICD9: 424.0, ICD10: I34.0 Recheck echo 03/2023 3. Mixed hyperlipidemia - ICD9: 272.2, ICD10: E78.2 - good control - Continue current medication. - Encouraged following a low fat, low cholesterol diet. - Discussed the benefits of regular aerobic exercise and weight loss. 4. Mild pulmonary hypertension (HCC) - ICD9: 416.8, ICD10: I27.20 Continue to monitor as above in 2 years 5. Obstructive sleep apnea - ICD9: 327.23, ICD10: G47.33 compliant 6. Lung nodules - ICD9: 793.19, ICD10: R91.8 Clear on most recent CTA chest 7. Mild persistent asthma without complication - ICD9: 493.90, ICD10: J45.30 Mild intermittent Asthma stable - Continue current meds - Avoidance of triggers recommended 8. SOB (shortness of breath) - ICD9: 786.05, ICD10: R06.02 improved 9. Adjustment disorder with depressed mood - ICD9: 309.0, ICD10: F43.21 In counseling which is helping. Medications help a little: wants to continue 10. Failure of total knee replacement, initial encounter (HCC) - ICD9: 996.47, V43.65, ICD10: T84.018A, Z96.659 Following with ortho: pans to review as dissatisfied with level of pain and restricted ROM 11. Iron deficiency anemia, unspecified iron deficiency anemia type - ICD9: 280.9, ICD10: D50.9 Drop in H+H Iron levels WN:. Ferritin elevated likely [id number] to acute phase reactant Will get IFOBT 12. Iron malabsorption - ICD9: 579.8, ICD10: K90.9 As above 13. Irritable bowel syndrome with diarrhea - ICD9: 564.1, ICD10: K58.0 Stable, continues variance but in acceptable pattern 14. IPMN (intraductal papillary mucinous neoplasm) - ICD9: 239.0, ICD10: D49.0 F/u mamm in 6 months 15. Urge incontinence - ICD9: 788.31, ICD10: N39.41 Improved on medication. 16. Need for COVID-19 vaccine - ICD9: V04.89, ICD10: Z23 - PFIZER-BIONTECH COVID-19 VACCINE, AGE 12+ YR (CHILDS TOP) Some of this note was copied and pasted for the purpose of history context and comparison. Layla Bellamy PA-C documented in this encounter [facility] 04-04-2022 Miscellaneous Notes CATY 01/08/22 NOV 04/12/22 Patient has been identified by name and date of : Yes Requested Prescriptions Pending Prescriptions Disp Refills lansoprazole (PREVACID) 30 mg capsule 90 capsule 3 Sig: Take 1 capsule by mouth once daily. RX INSTRUCTIONS: Patient aware RX will be sent to pharmacy. No need to notify patient. Indu Hardying Pss documented in this encounter [facility] 03-30-2022 Miscellaneous Notes Letter mailed to pt home notifying of below. Josie Hunter Ma Left message for patient to call office back Farzana Paredes Ma Needs additional views in six months. Is likely ok. Orders placed. documented in this encounter [facility] 03-28-2022 Miscellaneous Notes Rx was originally written by Ortho. Note forwarded to last prescribing provider to address. Stanton Arenas LPN Patient is asking is she still supposed to be on this medication and if so please send to her pharmacy. She still has the spacer in her knee at this time. Patient has been identified by name and date of : Yes Pending Prescriptions Disp Refills DOXYCYCLINE HYCLATE 100 MG TABLET 180 tablet 0 Sig: Take 1 tablet by mouth twice daily. JOYCE: No RX INSTRUCTIONS: Patient aware RX will be sent to pharmacy. No need to notify patient. Ana Lilia Skinner Pss documented in this encounter [facility] 03-28-2022 History of Present illness Narrative Hematologic problem(s): 1) PIO. HPI: The patient is a 76-year-old female with a past medical history significant for hyperlipidemia, mitral regurgitation, mild pulmonary hypertension, ascending aortic aneurysm, RAVIN, mild persistent asthma, lung nodules, chronic bilateral lower back pain, obesity and seasonal allergies. Had left TKR 12/28/2020--no excessive blood loss. Still having pain that was changing location. Has chronic joint aches of the ankles and elbows all the time--throbbing. Movement doesn't exacerbate the pain. Takes 81 mg ASA daily. Underwent EGD on 06/13/2021. The mucosa of the examined portion of the jejunum, duodenum was normal. There was gastritis observed which was biopsied. Nonsevere reflux esophagitis was observed and biopsied. On colonoscopy the examined portion of the ileum was normal. There was a 6 mm polyp in the sigmoid colon which was removed with a cold snare. Internal hemorrhoids were also observed and biopsied. Pathology: 1. Stomach, antrum, biopsy (A) - Gastric antral-type mucosa with no significant diagnostic alteration. - No morphologic evidence of Helicobacter pylori organisms. 2. Esophagus, distal, biopsy (B) - Mildly inflamed squamous and gastric cardiofundic-type mucosa, negative for intestinal metaplasia and dysplasia. 3. Colon, polyp at 35 cm, biopsy (C) - Polypoid colonic mucosa with features of mucosal prolapse (see comment). 4. Colon, rectum, biopsy (D) - Inflamed anorectal mucosa with ulceration and reactive epithelial changes. - No evidence of viral cytopathic effect. Was in ED 04/21/2021 for elevated dDimer--CTA negative for PE. No other findings. She was/had initial evaluation: Fatigued. Appetite is minimal. On oral iron since 02/2021. Makes her very constipated. Getting PT at [facility] for left knee. Uses Dulera as a rescue inhaler. Was on Brio but made her hoarse. Very stressed-- is in rehab facility in [place] following two strokes. She travels there several times a week. Presents for ongoing hematologic management. Interim history: Received a course of parenteral iron 06/2021. Still has left knee spacer. On oral antibiotics. Able to walk without cane or walker. Feels well otherwise, I'm finally getting back. Better energy. No black or bloody stools. PMH, medications and allergies personally reviewed by me today. Any changes documented in appropriate section. ROS: Constitutional: Denies episodes of fever and night sweats. Normal appetite. Neuro: Denies FERNANDO, vertigo, dizziness and imbalance. Denies symptoms of neuropathy. HEENT: No recent change in voice, vision or hearing. Resp: Denies cough, wheeze and hemoptysis. Denies shortness of breath at rest. Denies TAPIA. CVS: Denies exertional chest pain, PND, orthopnea and LE edema. GI: Denies dysgeusia. Denies symptoms of stomatitis. Denies dysphagia and odynophagia. Denies reflux, n/v, change in bowel habits and abdominal pain. : Denies dysuria or gross hematuria. No symptoms of bladder outlet obstruction. Endo: +hot flashes. Denies polyuria and polydipsia. Denies heat and cold intolerance. Musculoskeletal: See above. Derm: Denies rash. Denies jaundice and diffuse pruritis. Heme: Denies unusual bleeding and unexplained bruising. Psych: Normal mood. PHYSICAL EXAM: Vitals: Blood pressure 120/50, pulse 65, temperature 36.2 C (97.1 F), temperature source Temporal, height 166.4 cm (5' 5.5), weight 71 kg (156 lb 8 oz). Well-appearing and in no acute distress. EYES: Sclerae are anicteric bilaterally. LYMPHATIC: There is no palpable cervical or supraclavicular adenopathy. RESPIRATORY: Inspiratory breath sounds are of diminished intensity in all [place]. No rales, wheezes or rhonchi. CARDIOVASCULAR: Rhythm is regular. ABDOMEN: The abdomen is nondistended. No organomegaly. No tenderness. Extremities: No swelling or edema. SKIN: No jaundice or rash. No petechiae. NEUROLOGIC: retail assistant II-XII are grossly intact. No focal motor weakness. MUSCULOSKELETAL: Left knee is swollen, but not as warm and tender as previously. LABS: Component Latest Ref Rng & Units 03/28/2022 WBC 3.70 - 11.00 k/uL 7.19 RBC 3.90 - 5.20 m/uL 3.86 (L) Hemoglobin 11.5 - 15.5 g/dL 10.7 (L) Hematocrit 36.0 - 46.0 % 34.6 (L) MCV 80.0 - 100.0 fL 89.6 MCH 26.0 - 34.0 pg 27.7 MCHC 30.5 - 36.0 g/dL 30.9 RDW-CV 11.5 - 15.0 % 15.5 (H) Platelet Count 150 - 400 k/uL 359 MPV 9.0 - 12.7 fL 9.2 Neut% % 68.1 Abs Neut (ANC) 1.45 - 7.50 k/uL 4.89 Lymph% % 22.5 Abs Lymph 1.00 - 4.00 k/uL 1.62 [place]% % 5.8 Abs [place] <0.87 k/uL 0.42 Eosin% % 2.5 Abs Eosin <0.46 k/uL 0.18 Baso% % 0.7 Abs Baso <0.11 k/uL 0.05 Immature Gran % % 0.4 IMMATURE GRANS (ABS) <0.10 k/uL 0.03 NRBC /100 WBC 0.0 Absolute nRBC <0.01 k/uL <0.01 DTYPE Auto ASSESSMENT/PLAN: (D50.9) Iron deficiency anemia, unspecified iron deficiency anemia type (K90.9) Iron malabsorption Assessment: -Patient developed onset of microcytic anemia following knee replacement surgery December 2019. -Was on oral iron with no significant absorption (on PPI) as evidenced by low iron saturation and serum iron. Made her very nauseated. -Elevated ferritin and lower TIBC suggested an overlay of chronic inflammation. -GI evaluation with EGD and colonoscopy revealed no bleeding source. -Ultimately had to have knee prosthesis removed due to staph infection. She continues on oral antibiotics. Spacer device in place. -Reviewed CBC. Little more anemic than previously. Iron studies pending. -Discussed plan to continue monitoring her CBC and iron studies every 3 months with parenteral replacement as indicated. She is completely intolerant to oral iron. Plan: -She will be called with the results of the iron studies when resulted tomorrow and further plan pending those results. Portions of this documentation were copied and pasted from previous office visit notes in order to provide a cohesive continuity of the history. The note has been reviewed and edited and updated as necessary. During this patient visit I have spent approximately 10 minutes out of 20 in counseling regarding treatment options, medications and test results and coordinating care. Yash Kwan DO documented in this encounter [facility] 03-28-2022 History of Present illness Narrative Radiology Service Progress Note PATIENT NAME: Cheryl Marrero DATE OF SERVICE: March 28, 2022 TIME: 9:17 AM PATIENT IDENTITY VERIFICATION COMPLETED USING TWO (2) IDENTIFIERS: Name and Date of confirmed by patient verbally. FALL SCREENING: Has the patient had 2 falls in the last year or 1 fall with injury or currently using an Ambulatory Assistive Device (Walker, Cane, Wheelchair, Crutches, etc.)? No PATIENT GENDER DATA: Female. status: : No status: NO. PATIENT RELEVANT IMPLANT DATA REVIEWED: Not Applicable RADIOLOGY DEPARTMENT: Mammography PERIPHERAL IV DATA: Not applicable SIGNED BY: Joseph RomanPicapica Syd March 28, 2022 9:17 AM documented in this encounter [facility] 03-21-2022 Miscellaneous Notes Patient last visit with PCP 01/08/22 Follow up appointment scheduled 04/12/22 Farzana Praedes Ma documented in this encounter [facility] 02-22-2022 Miscellaneous Notes Patient was notified Farzana Paredes Ma Sound s like mild allergic response to something. Could be doxy though has a low risk of allergy. I agree with starting a daily antihistamine (Ophelia, Clariten, Zyrtec) and if no improvement in 5-7 days let me know. Thanks, Toney Bellamy PA-C Pt called and is notified of providers results and instructions. Pt voices understanding, she was put through to schedule breast diag/US. Pt reports she had a rash appear on her L arm and the on her R arm. Reports it's bumps below the surface. States, Sometimes you can see the bumps and other times not, and sometimes it looks red and right now it doesn't.. She states both arms are itchy. Pt reports she has not gotten into anything out side, has just pulled a few weeds. Pt denies eating anything new. Pt reports she started Doxycycline on Oct 03, 2021 and wonders if that could be the cause. She reports she has one more month left on it. Asked Pt if she had tried taking any antihistamine like Benadryl and she denies. Told her this could help with itching. Please call and advise. Nikki Hua, RN TC to pt, no answer, unable to leave message. Stanton Arenas LPN TC to pt, left message to return call to office. Stanton Arenas LPN Telephone on 02/19/22 [facility] RT US BREAST LTD RT Inconclusive mammogram (primary encounter diagnosis) ThanksToney PA-C documented in this encounter [facility] 02-19-2022 History of Present illness Narrative Radiology Service Progress Note PATIENT NAME: Cheryl Marrero DATE OF SERVICE: February 19, 2022 TIME: 11:31 AM PATIENT IDENTITY VERIFICATION COMPLETED USING TWO (2) IDENTIFIERS: Name and Date of confirmed by patient verbally. FALL SCREENING: Has the patient had 2 falls in the last year or 1 fall with injury or currently using an Ambulatory Assistive Device (Walker, Cane, Wheelchair, Crutches, etc.)? No PATIENT GENDER DATA: Female. status: : No status: NO. PATIENT RELEVANT IMPLANT DATA REVIEWED: Not Applicable RADIOLOGY DEPARTMENT: Mammography PERIPHERAL IV DATA: Not applicable SIGNED BY: Liane Tucker [employer] February 19, 2022 11:31 AM documented in this encounter [facility] 01-02-2022 Miscellaneous Notes TC to pt, notified of labs/provider response. She states she was able to get the zofran and has already had 1 dose today and will take it again tonight. She has not had any diarrhea today, no vomiting. Only complaint today is the nausea. Stanton Arenas LPN Can please let patient know that I received most of her lab work back. Everything looks pretty stable. Her ferritin level is elevated, but looks lower than what it has been. Her kidney function was just minimally decreased. Please make sure to try to increase fluid intake. How is she feeling? documented in this encounter [facility] 01-01-2022 Instructions Dominga Ann APRN.CNP - 01/01/2022 6:31 PM EDT 1. Get labwork. 2. Let us know if any increased frequency. 3. Try the higher dose of zofran. documented in this encounter [facility] 01-01-2022 History of Present illness Narrative This is a 76 year old female who presents today with: Patient presents with: Nausea: no emesis- zofran doesn't help Diarrhea: having at least 1 x daily - no formed stool HISTORY OF PRESENT ILLNESS: Cheryl Marrero is a 76 year old female. Patient presents with: Nausea: no emesis- zofran doesn't help Diarrhea: having at least 1 x daily - no formed stool Pt presents today with complaint of Started with the viral flu last week. Refers that it is just continuing on. Refers that she called in today and advised to be seen. Started mostly on Saturday. Had a covid test which 12/24, which was negative. + nausea, hot flashes, and chills, no energy, no appetite. No vomiting. + nausea. + diarrhea, but not everyday. Can be unformed and/or water. Refers when she has a bowel movement, it is loose. No hematochezia or melena. Refers that she had a knee replacement and was hospitalized X 6 weeks. Has been on doxy since July, but still has a couple of months to go. Refers that spouse had two strokes and is in a rest home. She does take a daily probiotic. Tried zofran, but didn't help. She took it for 2-3 days, but didn't help, so she quit. Is taking liquids, but not enough. Some mild mid abdominal pain. PAST MEDICAL HISTORY: PAST MEDICAL HISTORY Diagnosis Date Anxiety state, unspecified Arthritis Asthma Coronary artery disease Diverticulosis of colon (without mention of hemorrhage) Hemorrhage of gastrointestinal tract, unspecified Localized osteoarthrosis not specified whether primary or secondary, lower leg Lung nodules Myalgia Obstructive sleep apnea Other and unspecified hyperlipidemia Seasonal allergies Shingles 01/2017 Urge urinary incontinence PAST SURGICAL HISTORY Procedure Laterality Date ABDOMINAL SURGERY HX BREAST CYST PUNCTURE/BC CHOLECYSTECTOMY 04/09/2000 lap choley COLONOSCOPY - DIAGNOSTIC 11/01/2000 COLONOSCOPY FLX DX W/COLLJ SPEC WHEN PFRMD 09/09/2008 Colonoscopy COLONOSCOPY FLX DX W/COLLJ SPEC WHEN PFRMD 07/01/2014 Colonoscopy COLONOSCOPY FLX DX W/COLLJ SPEC WHEN PFRMD 11/05/2019 Colonoscopy COLONOSCOPY FLX DX W/COLLJ SPEC WHEN PFRMD 06/13/2021 ECHOCARDIOGRAM 04/24/2021 echo: LV small, LV SF WNL, EF 65%, grade 1 LVDD. All wall motion score normal. RV size and RV SF WNL, RVSP 38 mmHg consistent with mild pulmonary hypertension. LA and RA normal in size, inferior vena cava normal. MV: 0-1+ MVR, TV normal, 0-1+ TR, AV normal, PV not seen, 0-1+ FL. Mid a sending aorta 3.2 cm. Echocardiogram pulmonary arteries not interrogated, no pericardial effusion ESOPHAGOGASTRODUODENOSCOPY TRANSORAL DIAGNOSTIC 11/05/2019 EGD ESOPHAGOGASTRODUODENOSCOPY TRANSORAL DIAGNOSTIC 06/13/2021 EYE SURGERY HX HEMORRHOIDECTOMY INTERNAL RUBBER BAND LIGATIONS 11/05/2019 PICC LINE INSERT/CONSULT 08/24/2021 SKIN BIOPSY HX TONSILLECTOMY HX TONSILLECTOMY PRIMARY/SECONDARY <AGE 12 TOTAL KNEE REPLACEMENT ALLERGIES Phenergan [Promethazine Hcl], Xhqzycg-Zzm-Rjo Reductase Inhibitors, Adhesive, Breo Ellipta [Fluticasone Furoate-Vilanterol], Penicillins, Roxicodone [Oxycodone], Sulfa (Sulfonamide Antibiotics), and Vancomycin MEDICATIONS Current Outpatient Medications Medication Sig doxycycline (VIBRA-TABS) 100 mg tablet Take 1 tablet by mouth twice daily. ondansetron (ZOFRAN) 4 mg tablet Take 1 tablet by mouth every 8 hours as needed. metoprolol succinate ER (TOPROL XL) 25 mg 24 hr tablet Take 1 tablet by mouth twice daily. buPROPion XL (WELLBUTRIN XL) 150 mg 24 hr tablet Take 1 tablet by mouth once daily. vibegron (GEMTESA) 75 mg tablet Take 1 tablet by mouth once daily. meloxicam (MOBIC) 7.5 mg tablet Take 1 tablet by mouth once daily. folic acid 1 mg tablet Take 1 tablet by mouth once daily. rosuvastatin (CRESTOR) 5 mg tablet TAKE 1 TABLET BY MOUTH EVERYDAY AT BEDTIME busPIRone (BUSPAR) 5 mg tablet Take 1 tablet by mouth three times daily. lansoprazole (PREVACID) 30 mg capsule Take 1 capsule by mouth once daily. acetaminophen (TYLENOL) 500 mg tablet Take 2 tablets by mouth every 8 hours as needed. fluticasone (FLONASE) 50 mcg/actuation nasal spray Use 1 [place] in each nostril once daily. albuterol HFA (PROAIR HFA) 90 mcg/actuation inhaler Inhale 2 Puffs as instructed every 6 hours as needed. vitamin B complex (B COMPLEX 1 ORAL) Take by mouth. cholecalciferol (VITAMIN D) 1,000 unit tab tablet Take 1,000 Units by mouth once daily. gabapentin (NEURONTIN) 300 mg capsule Take 1 capsule by mouth daily at bedtime for 30 days. CPAP polyethylene glycol 3350 (MIRALAX ORAL) Take 1 Tablespoonful by mouth as needed. (Patient not taking: Reported on 01/01/2022 ) ferrous sulfate 325 mg (65 mg iron) tablet Take 1 tablet by mouth daily with breakfast. (Patient not taking: Reported on 01/01/2022 ) COMPOUNDED PRESCRIPTION Initiate CPAP @ 12 cm of water with humidification. Mask (per patient preference) optional chin strap (if indicated) , filters, tubing, humidifier and lifetime supplies. Dx. RAVIN 327.23 (Patient not taking: Reported on 01/01/2022 ) Current Facility-Administered Medications Medication Dose Route Frequency perflutren lipid microspheres 1.3 mL in NaCl (PF) 0.9% 10 mL injection (DEFINITY) INTRAVENOUS DIRECTED PRN sodium chloride 0.9 % (flush) 10 mL (BD POSIFLUSH) 10 mL INTRAVENOUS DIRECTED PRN FAMILY HISTORY Problem Relation Age of Onset Ischemic Heart Disease Father PASSED FROM [place] Diabetes Father Ischemic Heart Disease Mother PASSED FROM [place] Coronary Artery Disease Brother stent Diabetes Sister Cancer Maternal Grandfather lung Cancer Paternal Grandfather lung Social History Tobacco Use Smoking status: Never Smoker Smokeless tobacco: Never Used Tobacco comment: Lived with smokers in childhood home and until 2002. Vaping Use Vaping Use: Never used Substance Use Topics Alcohol use: No Drug use: No EXAM: BP 140/68 Pulse 84 Resp 18 Wt 72.2 kg (159 lb 3.2 oz) SpO2 98% BMI 24.93 kg/m PHYSICAL EXAM: General Appearance: Well appearing, alert, in no acute distress, well-hydrated, well nourished.. Skin: Skin color, texture, turgor normal, no suspicious rashes or lesions. Head: Normocephalic, no masses, lesions, tenderness or abnormalities. Eyes: Anicteric sclera. Pupils are equally round and reactive to light. Extraocular movements are intact. Oropharynx: Lips, mucosa, and tongue normal, teeth and gums normal, oropharynx normal. Neck: Supple, no adenopathy Lungs: Lungs clear to auscultation. No wheezing, rhonchi, rales.. Heart: RRR without murmur, gallop, or rubs. No ectopy. Abdomen: Abdomen soft. Mild abdominal tenderness. No rebound/guarding. Bowel sounds normal. No masses, organomegaly. Extremities: No deformities, edema, skin discoloration, clubbing or cyanosis. Good capillary refill. Neurologic: Gait normal. ASSESSMENT/PLAN: 1. Gastroenteritis - ICD9: 558.9, ICD10: K52.9 (primary diagnosis) Continued symptoms. Does not appear to have an acute abdomen. Discussed that if she has an increase in frequency of stooling, she should notify provider. We will give a dose of IM Zofran 4 mg here. Will change oral Zofran to the dissolvable 8 mg tablets. She is aware to start trying to increase her fluid intake. She will return tomorrow morning for lab work. Discussed that if her symptoms should worsen (not tolerating oral fluids, worsening pain, passing blood, fever/chills, she should proceed to the emergency room.) - ONDANSETRON 8 MG DISINTEGRATING TABLET - COMP METABOLIC PANEL - CBC + DIFF - MAGNESIUM BLD - C-REACTIVE PROTEIN (CRP) 2. Iron deficiency anemia due to chronic blood loss - ICD9: 280.0, ICD10: D50.0 - C-REACTIVE PROTEIN (CRP) - SED RATE WESTERGREN - IRON + TIBC - FERRITIN BLD - RETIC COUNT 3. Renal insufficiency - ICD9: 593.9, ICD10: N28.9 CMP 4. Screening for hyperlipidemia - ICD9: V77.91, ICD10: Z13.220 - LIPID PANEL, NONFASTING 5. Nausea - ICD9: 787.02, ICD10: R11.0 - ONDANSETRON 8 MG DISINTEGRATING TABLET - ONDANSETRON HCL (PF) 4 MG/2 ML INJECTION SOLUTION Discussed treatment plan and patient voices understanding. Patient's questions answered appropriately. Medications and potential side effects were discussed and patient voices understanding. Return to the office as scheduled or as needed for worsening/no improvement. Dominga Ann APRN.ROOF BOLTER OPERATOR This note was partially generated using [employer] voice recognition system. Note was reviewed for accuracy. There may be minor misspellings or grammar miscues with [employer] voice recognition. documented in this encounter [facility] 01-01-2022 Miscellaneous Notes Pt scheduled tonight Needs to be seen Thanks, Toney Bellamy PA-C Pt called in 12/26/21 with nausea, diarrhea & other symptoms. Pt states sx have improved slightly but still has them, had diarrhea once yest, +nausea (zofran not helping), feels hot & cold (no fever), feels like her stomach is on fire & decreased appetite & energy. Sx started 12/23/21. Pt asking if she is still contagious & if there is anything else she should be doing? Has PT scheduled this am. Saige Banuelos LPN documented in this encounter [facility] 12-26-2021 Miscellaneous Notes Pt called back and she needs a refill on Zofran and her insurance will cover 9 at a time with refills. Patient has been identified by name and date of : Yes Patient phones for refill(s): Pending Prescriptions Disp Refills ONDANSETRON HCL 4 MG TABLET 9 tablet 3 Sig: Take 1 tablet by mouth every 8 hours as needed. JOYCE: No Date of last office visit in primary care: 10/09/21 next 01/08/22 Last 2 Encounter Wt Readings: Date: Wt: 10/12/2021 75.3 kg (166 lb) 10/09/2021 75.8 kg (167 lb) Previous labs/tests for medication: Not applicable Please advise. Thank you. Lorena Thomas LPN Patient calls to let provider know that she started feeling bad Saturday night and symptoms worsened over the weekend. Patient went to [facility] and was tested for Covid which was negative. Patient was told she has a viral infection. Symptoms include: upset stomach, nausea, no vomiting, diarrhea 3 times last night and once this morning, cold chills, and hot flashes. Afebrile. Reviewed at home care. Patient verbalizes understanding. Patient requesting a prescription for something for nausea. Order for Zofran in place. Patient reports she never picked it up from pharmacy. Will have medication filled and will call back with further questions/concerns. Reviewed when to call back and red flag symptoms to report to ER with. Patient verbalizes understanding. Rhiannon Hinds RN documented in this encounter [facility] 12-07-2021 Miscellaneous Notes Patient notified of results, verbalizes understanding of instructions. Nell Deal Ma miralax will not work using it just prn. It takes three to four days of normal usage to work. If any pain or vomiting, to ER. If not can try 30 ml of Milk of mag and resume miralax. If continues, needs seen Pt called and states having bowel problems. She has not had a BM since 11-30-21. STOOL PATTERN FREQUENCY: normal for her is twice a week. Last BM passed was 11-30-21 and just now small amount 2:15 pm on 12-07-21 STRAINING: strains all the time to have a BM RECTAL PAIN: Has rectal pain till she has BM. She has been told she has hemorrhoids. She has had 2 surgeries. Pain scale mild to moderate. STOOL COMPOSITION: hard BLOOD IN STOOL: no blood CHRONIC CONSTIPATION: new problem CHANGES IN DIET OR HYDRATION: No change and she normal gets 8 to 16 oz daily fluid intake. Today only 8 oz of coffee. She know she does not drink enough water. MEDICATIONS: new medication - Gabapentin. No pain medications. Takes 2 ATB daily and blood pressure medication LAXATIVES, 11-27-21 took 1 enema and 2 glycerin tablets and had prune juice and had BM 2 or 3, had Bm on 11-29-21 and 11-30-21. Took Miralax on 12-04-21 and 12-05-21 and drank prune juice 12-06-21 and 12-07-21 and today took 2 enemas at 12:30 Her bowels are trying to work and she has gotten a small amount out and states I can not push any more. Pt states she is to be taking Miralax daily and she forgets. ACTIVITY: n/a CAUSE: she thinks her medications are doing this. OTHER SYMPTOMS: bloating MEDICAL HISTORY: hx of hemorrhoids and has had 2 hemorrhoid surgeries. Question: Pt asking what she should do. Please advise pt Lorena Thomas LPN Question: documented in this encounter [facility] 07-08-2021 Miscellaneous Notes Spoke with patient, advising below. Patient stated that she saw Dr. Huffman on Saturday and he is aware. He took x-rays and attempted to draw fluid off the knee to no avail. Patient was directed to do physical therapy and they would revisit it in 6 weeks. Miranda Anand Can let her know the final results of the lab work I ordered indicate the anemia is due to iron deficiency and inflammation (sed rate quite high and likely from left knee pain/swelling). Proceed with iron infusions as scheduled. Follow up with Dr. Huffman. Yash Kwan DO documented in this encounter [facility] 06-29-2021 History of Past i llness Narrative Problem Noted Date Diagnosed Date Resolved Date Iron deficiency anemia 06/29/202104/04 Last Assessment & Plan: Assessment: Previously receiving iron infusions, last 07/21/21. Last H&H - 10.2 & 33.8 (06/2021). No current iron supplementation. Other chest pain 03/15/2021 08/16/2021 Overview: NM cardiac perfusion stress test: Normal, no inducible ischemia or scarred myocardium. LV normal size, LVSF normal with ejection fraction 74%, RV size normal LV size, 06/05/2019 echocardiogram: LVSF NL, EF 64%, no ventricular wall motion abnormalities, no LVDD. RV size and RV SF normal, RVSP 37mmHg consistent with mild pulmonary hypertension. RA and LA normal size. MV 1+ MVR, trace TVI, 1+ TVR, AV mild thickening, gradient peak 7mmHg:, Trace PVR, mild ascending aortic dilation 3.2 cm Obesity, Class I, BMI 30-34.9 01/13/2018 08/16/2021 Last Assessment & Plan: Assessment: Body mass index is 33.52 kg/m . Primary osteoarthritis of left knee 08/09/2015 08/16/2021 RAVIN (obstructive sleep apnea) 05/09/2013 08/16/2021 Overview: CPAP @ 12 cm , AHI 22 , DME [facility] Last Assessment & Plan: Assessment: c/w cpap Plantar fasciitis, bilateral 08/06/2012 12/11/2016 Breast density 01/25/2010 12/11/2016 Overview: Rt Breast- appt upcoming w/Dr. Vickers for Bx 03/04 Diarrhea 09/09/2008 12/11/2016 Anxiety state, unspecified 1 Last Assessment & Plan: She continues with paxil and maintains steady moods. Prior attempts at weaning down with return of low moods/sadness. Does well with therapy. Hemorrhage of gastrointestin al tract, unspecified 12/11/2016 Asthma 08/16/2021 Lung nodules 04/04/2023 Overview: 04/21/2021 CTA chest: WNL, nodules not identified 05/19/18 CT chest WO Resolution of tree-in-bud type pulmonary nodules seen within the right upper lobe on prior examinations. Other subcentimeter pulmonary nodules are stable, up to 4 mm. 01/13/18 CT chest WOnear complete resolution tree-in-bud type pulmonary nodules RUL 01/08/17 suggesting resolving chronic pneumonia 04/10/17 CT chest WO: no lung abnormality. 1cm low attenuation lesion right hepatic lobe Last Assessment & Plan: Assessment: No mention of lung nodules on 03/2021 chest CTA. Stable nodules on [address] Patient is following with pulmonology. documented as of this encounter (statuses as of 04/04/2023) [facility] History of Past illness Narrative* Problem Noted Date Diagnosed Date Resolved Date Iron deficiency anemia 06/29/202104/04 Last Assessment & Plan: Assessment: Previously receiving iron infusions, last 07/21/21. Last H&H - 10.2 & 33.8 (06/2021). No current iron supplementation. Other chest pain 03/15/2021 08/16/2021 Overview: NM cardiac perfusion stress test: Normal, no inducible ischemia or scarred myocardium. LV normal size, LVSF normal with ejection fraction 74%, RV size normal LV size, 06/05/2019 echocardiogram: LVSF NL, EF 64%, no ventricular wall motion abnormalities, no LVDD. RV size and RV SF normal, RVSP 37mmHg consistent with mild pulmonary hypertension. RA and LA normal size. MV 1+ MVR, trace TVI, 1+ TVR, AV mild thickening, gradient peak 7mmHg:, Trace PVR, mild ascending aortic dilation 3.2 cm Obesity, Class I, BMI 30-34.9 01/13/2018 08/16/2021 Last Assessment & Plan: Assessment: Body mass index is 33.52 kg/m . Primary osteoarthritis of left knee 08/09/2015 08/16/2021 RAVIN (obstructive sleep apnea) 05/09/2013 08/16/2021 Overview: CPAP @ 12 cm , AHI 22 , DME [facility] Last Assessment & Plan: Assessment: c/w cpap Plantar fasciitis, bilateral 08/06/2012 12/11/2016 Breast density 01/25/2010 12/11/2016 Overview: Rt Breast- appt upcoming w/Dr. Vickers for Bx 03/04 Diarrhea 09/09/2008 12/11/2016 Anxiety state, unspecified 1 Last Assessment & Plan: She continues with paxil and maintains steady moods. Prior attempts at weaning down with return of low moods/sadness. Does well with therapy. Hemorrhage of gastrointestin al tract, unspecified 12/11/2016 Asthma 08/16/2021 Lung nodules 04/04/2023 Overview: 04/21/2021 CTA chest: WNL, nodules not identified 05/19/18 CT chest WO Resolution of tree-in-bud type pulmonary nodules seen within the right upper lobe on prior examinations. Other subcentimeter pulmonary nodules are stable, up to 4 mm. 01/13/18 CT chest WOnear complete resolution tree-in-bud type pulmonary nodules RUL 01/08/17 suggesting resolving chronic pneumonia 04/10/17 CT chest WO: no lung abnormality. 1cm low attenuation lesion right hepatic lobe Last Assessment & Plan: Assessment: No mention of lung nodules on 03/2021 chest CTA. Stable nodules on [address] Patient is following with pulmonology. documented as of this encounter (statuses as of 04/09/2023) [facility] History of Past illness Narrative* Problem Noted Date Diagnosed Date Resolved Date Iron deficiency anemia 06/29/202104/04 Last Assessment & Plan: Assessment: Previously receiving iron infusions, last 07/21/21. Last H&H - 10.2 & 33.8 (06/2021). No current iron supplementation. Other chest pain 03/15/2021 08/16/2021 Overview: NM cardiac perfusion stress test: Normal, no inducible ischemia or scarred myocardium. LV normal size, LVSF normal with ejection fraction 74%, RV size normal LV size, 06/05/2019 echocardiogram: LVSF NL, EF 64%, no ventricular wall motion abnormalities, no LVDD. RV size and RV SF normal, RVSP 37mmHg consistent with mild pulmonary hypertension. RA and LA normal size. MV 1+ MVR, trace TVI, 1+ TVR, AV mild thickening, gradient peak 7mmHg:, Trace PVR, mild ascending aortic dilation 3.2 cm Obesity, Class I, BMI 30-34.9 01/13/2018 08/16/2021 Last Assessment & Plan: Assessment: Body mass index is 33.52 kg/m . Primary osteoarthritis of left knee 08/09/2015 08/16/2021 RAVIN (obstructive sleep apnea) 05/09/2013 08/16/2021 Overview: CPAP @ 12 cm , AHI 22 , DME [facility] Last Assessment & Plan: Assessment: c/w cpap Plantar fasciitis, bilateral 08/06/2012 12/11/2016 Breast density 01/25/2010 12/11/2016 Overview: Rt Breast- appt upcoming w/Dr. Vickers for Bx 03/04 Diarrhea 09/09/2008 12/11/2016 Anxiety state, unspecified 1 Last Assessment & Plan: She continues with paxil and maintains steady moods. Prior attempts at weaning down with return of low moods/sadness. Does well with therapy. Hemorrhage of gastrointestin al tract, unspecified 12/11/2016 Asthma 08/16/2021 Lung nodules 04/04/2023 Overview: 04/21/2021 CTA chest: WNL, nodules not identified 05/19/18 CT chest WO Resolution of tree-in-bud type pulmonary nodules seen within the right upper lobe on prior examinations. Other subcentimeter pulmonary nodules are stable, up to 4 mm. 01/13/18 CT chest WOnear complete resolution tree-in-bud type pulmonary nodules RUL 01/08/17 suggesting resolving chronic pneumonia 04/10/17 CT chest WO: no lung abnormality. 1cm low attenuation lesion right hepatic lobe Last Assessment & Plan: Assessment: No mention of lung nodules on 03/2021 chest CTA. Stable nodules on [address] Patient is following with pulmonology. documented as of this encounter (statuses as of 05/03/2023) [facility]11-04-2021 History of Past illness Narrative* Problem Noted Date Diagnosed Date Resolved Date Iron deficiency anemia 06/29/202104/04 Last Assessment & Plan: Assessment: Previously receiving iron infusions, last 07/21/21. Last H&H - 10.2 & 33.8 (06/2021). No current iron supplementation. Other chest pain 03/15/2021 08/16/2021 Overview: NM cardiac perfusion stress test: Normal, no inducible ischemia or scarred myocardium. LV normal size, LVSF normal with ejection fraction 74%, RV size normal LV size, 06/05/2019 echocardiogram: LVSF NL, EF 64%, no ventricular wall motion abnormalities, no LVDD. RV size and RV SF normal, RVSP 37mmHg consistent with mild pulmonary hypertension. RA and LA normal size. MV 1+ MVR, trace TVI, 1+ TVR, AV mild thickening, gradient peak 7mmHg:, Trace PVR, mild ascending aortic dilation 3.2 cm Obesity, Class I, BMI 30-34.9 01/13/2018 08/16/2021 Last Assessment & Plan: Assessment: Body mass index is 33.52 kg/m . Primary osteoarthritis of left knee 08/09/2015 08/16/2021 RAVIN (obstructive sleep apnea) 05/09/2013 08/16/2021 Overview: CPAP @ 12 cm , AHI 22 , DME [facility] Last Assessment & Plan: Assessment: c/w cpap Plantar fasciitis, bilateral 08/06/2012 12/11/2016 Breast density 01/25/2010 12/11/2016 Overview: Rt Breast- appt upcoming w/Dr. Vickers for Bx 03/04 Diarrhea 09/09/2008 12/11/2016 Anxiety state, unspecified 1 Last Assessment & Plan: She continues with paxil and maintains steady moods. Prior attempts at weaning down with return of low moods/sadness. Does well with therapy. Hemorrhage of gastrointestin al tract, unspecified 12/11/2016 Asthma 08/16/2021 Lung nodules 04/04/2023 Overview: 04/21/2021 CTA chest: WNL, nodules not identified 05/19/18 CT chest WO Resolution of tree-in-bud type pulmonary nodules seen within the right upper lobe on prior examinations. Other subcentimeter pulmonary nodules are stable, up to 4 mm. 01/13/18 CT chest WOnear complete resolution tree-in-bud type pulmonary nodules RUL 01/08/17 suggesting resolving chronic pneumonia 04/10/17 CT chest WO: no lung abnormality. 1cm low attenuation lesion right hepatic lobe Last Assessment & Plan: Assessment: No mention of lung nodules on 03/2021 chest CTA. Stable nodules on [address] Patient is following with pulmonology. documented as of this encounter (statuses as of 06/01/2023) [facility]11-04-2021 History of Past illness Narrative* Problem Noted Date Diagnosed Date Resolved Date Iron deficiency anemia 06/29/202104/04 Last Assessment & Plan: Assessment: Previously receiving iron infusions, last 07/21/21. Last H&H - 10.2 & 33.8 (06/2021). No current iron supplementation. Other chest pain 03/15/2021 08/16/2021 Overview: NM cardiac perfusion stress test: Normal, no inducible ischemia or scarred myocardium. LV normal size, LVSF normal with ejection fraction 74%, RV size normal LV size, 06/05/2019 echocardiogram: LVSF NL, EF 64%, no ventricular wall motion abnormalities, no LVDD. RV size and RV SF normal, RVSP 37mmHg consistent with mild pulmonary hypertension. RA and LA normal size. MV 1+ MVR, trace TVI, 1+ TVR, AV mild thickening, gradient peak 7mmHg:, Trace PVR, mild ascending aortic dilation 3.2 cm Obesity, Class I, BMI 30-34.9 01/13/2018 08/16/2021 Last Assessment & Plan: Assessment: Body mass index is 33.52 kg/m . Primary osteoarthritis of left knee 08/09/2015 08/16/2021 RAVIN (obstructive sleep apnea) 05/09/2013 08/16/2021 Overview: CPAP @ 12 cm , AHI 22 , DME [facility] Last Assessment & Plan: Assessment: c/w cpap Plantar fasciitis, bilateral 08/06/2012 12/11/2016 Breast density 01/25/2010 12/11/2016 Overview: Rt Breast- appt upcoming w/Dr. Vickers for Bx 03/04 Diarrhea 09/09/2008 12/11/2016 Anxiety state, unspecified 1 Last Assessment & Plan: She continues with paxil and maintains steady moods. Prior attempts at weaning down with return of low moods/sadness. Does well with therapy. Hemorrhage of gastrointestin al tract, unspecified 12/11/2016 Asthma 08/16/2021 Lung nodules 04/04/2023 Overview: 04/21/2021 CTA chest: WNL, nodules not identified 05/19/18 CT chest WO Resolution of tree-in-bud type pulmonary nodules seen within the right upper lobe on prior examinations. Other subcentimeter pulmonary nodules are stable, up to 4 mm. 01/13/18 CT chest WOnear complete resolution tree-in-bud type pulmonary nodules RUL 01/08/17 suggesting resolving chronic pneumonia 04/10/17 CT chest WO: no lung abnormality. 1cm low attenuation lesion right hepatic lobe Last Assessment & Plan: Assessment: No mention of lung nodules on 03/2021 chest CTA. Stable nodules on [address] Patient is following with pulmonology. documented as of this encounter (statuses as of 06/10/2023) [facility]11-04-2021 History of Past illness Narrative* Problem Noted Date Diagnosed Date Resolved Date Iron deficiency anemia 06/29/202104/04 Last Assessment & Plan: Assessment: Previously receiving iron infusions, last 07/21/21. Last H&H - 10.2 & 33.8 (06/2021). No current iron supplementation. Other chest pain 03/15/2021 08/16/2021 Overview: NM cardiac perfusion stress test: Normal, no inducible ischemia or scarred myocardium. LV normal size, LVSF normal with ejection fraction 74%, RV size normal LV size, 06/05/2019 echocardiogram: LVSF NL, EF 64%, no ventricular wall motion abnormalities, no LVDD. RV size and RV SF normal, RVSP 37mmHg consistent with mild pulmonary hypertension. RA and LA normal size. MV 1+ MVR, trace TVI, 1+ TVR, AV mild thickening, gradient peak 7mmHg:, Trace PVR, mild ascending aortic dilation 3.2 cm Obesity, Class I, BMI 30-34.9 01/13/2018 08/16/2021 Last Assessment & Plan: Assessment: Body mass index is 33.52 kg/m . Primary osteoarthritis of left knee 08/09/2015 08/16/2021 RAVIN (obstructive sleep apnea) 05/09/2013 08/16/2021 Overview: CPAP @ 12 cm , AHI 22 , D[facility] Last Assessment & Plan: Assessment: c/w cpap Plantar fasciitis, bilateral 08/06/2012 12/11/2016 Breast density 01/25/2010 12/11/2016 Overview: Rt Breast- appt upcoming w/Dr. Vickers for Bx 03/04 Diarrhea 09/09/2008 12/11/2016 Anxiety state, unspecified 1 Last Assessment & Plan: She continues with paxil and maintains steady moods. Prior attempts at weaning down with return of low moods/sadness. Does well with therapy. Hemorrhage of gastrointestin al tract, unspecified 12/11/2016 Asthma 08/16/2021 Lung nodules 04/04/2023 Overview: 04/21/2021 CTA chest: WNL, nodules not identified 05/19/18 CT chest WO Resolution of tree-in-bud type pulmonary nodules seen within the right upper lobe on prior examinations. Other subcentimeter pulmonary nodules are stable, up to 4 mm. 01/13/18 CT chest WOnear complete resolution tree-in-bud type pulmonary nodules RUL 01/08/17 suggesting resolving chronic pneumonia 04/10/17 CT chest WO: no lung abnormality. 1cm low attenuation lesion right hepatic lobe Last Assessment & Plan: Assessment: No mention of lung nodules on 03/2021 chest CTA. Stable nodules on [address] Patient is following with pulmonology. documented as of this encounter (statuses as of 06/11/2023) [facility]11-04-2021 History of Past illness Narrative* Problem Noted Date Diagnosed Date Resolved Date Iron deficiency anemia 06/29/202104/04 Last Assessment & Plan: Assessment: Previously receiving iron infusions, last 07/21/21. Last H&H - 10.2 & 33.8 (06/2021). No current iron supplementation. Other chest pain 03/15/2021 08/16/2021 Overview: NM cardiac perfusion stress test: Normal, no inducible ischemia or scarred myocardium. LV normal size, LVSF normal with ejection fraction 74%, RV size normal LV size, 06/05/2019 echocardiogram: LVSF NL, EF 64%, no ventricular wall motion abnormalities, no LVDD. RV size and RV SF normal, RVSP 37mmHg consistent with mild pulmonary hypertension. RA and LA normal size. MV 1+ MVR, trace TVI, 1+ TVR, AV mild thickening, gradient peak 7mmHg:, Trace PVR, mild ascending aortic dilation 3.2 cm Obesity, Class I, BMI 30-34.9 01/13/2018 08/16/2021 Last Assessment & Plan: Assessment: Body mass index is 33.52 kg/m . Primary osteoarthritis of left knee 08/09/2015 08/16/2021 RAVIN (obstructive sleep apnea) 05/09/2013 08/16/2021 Overview: CPAP @ 12 cm , AHI 22 , DME [facility] Last Assessment & Plan: Assessment: c/w cpap Plantar fasciitis, bilateral 08/06/2012 12/11/2016 Breast density 01/25/2010 12/11/2016 Overview: Rt Breast- appt upcoming w/Dr. Vickers for Bx 03/04 Diarrhea 09/09/2008 12/11/2016 Anxiety state, unspecified 1 Last Assessment & Plan: She continues with paxil and maintains steady moods. Prior attempts at weaning down with return of low moods/sadness. Does well with therapy. Hemorrhage of gastrointestin al tract, unspecified 12/11/2016 Asthma 08/16/2021 Lung nodules 04/04/2023 Overview: 04/21/2021 CTA chest: WNL, nodules not identified 05/19/18 CT chest WO Resolution of tree-in-bud type pulmonary nodules seen within the right upper lobe on prior examinations. Other subcentimeter pulmonary nodules are stable, up to 4 mm. 01/13/18 CT chest WOnear complete resolution tree-in-bud type pulmonary nodules RUL 01/08/17 suggesting resolving chronic pneumonia 04/10/17 CT chest WO: no lung abnormality. 1cm low attenuation lesion right hepatic lobe Last Assessment & Plan: Assessment: No mention of lung nodules on 03/2021 chest CTA. Stable nodules on [address] Patient is following with pulmonology. documented as of this encounter (statuses as of 07/01/2023) [facility]11-04-2021 History of Past illness Narrative* Problem Noted Date Diagnosed Date Resolved Date Iron deficiency anemia 06/29/202104/04 Last Assessment & Plan: Assessment: Previously receiving iron infusions, last 07/21/21. Last H&H - 10.2 & 33.8 (06/2021). No current iron supplementation. Other chest pain 03/15/2021 08/16/2021 Overview: NM cardiac perfusion stress test: Normal, no inducible ischemia or scarred myocardium. LV normal size, LVSF normal with ejection fraction 74%, RV size normal LV size, 06/05/2019 echocardiogram: LVSF NL, EF 64%, no ventricular wall motion abnormalities, no LVDD. RV size and RV SF normal, RVSP 37mmHg consistent with mild pulmonary hypertension. RA and LA normal size. MV 1+ MVR, trace TVI, 1+ TVR, AV mild thickening, gradient peak 7mmHg:, Trace PVR, mild ascending aortic dilation 3.2 cm Obesity, Class I, BMI 30-34.9 01/13/2018 08/16/2021 Last Assessment & Plan: Assessment: Body mass index is 33.52 kg/m . Primary osteoarthritis of left knee 08/09/2015 08/16/2021 RAVIN (obstructive sleep apnea) 05/09/2013 08/16/2021 Overview: CPAP @ 12 cm , AHI 22 , DME [facility] Last Assessment & Plan: Assessment: c/w cpap Plantar fasciitis, bilateral 08/06/2012 12/11/2016 Breast density 01/25/2010 12/11/2016 Overview: Rt Breast- appt upcoming w/Dr. Vickers for Bx 03/04 Diarrhea 09/09/2008 12/11/2016 Anxiety state, unspecified 1 Last Assessment & Plan: She continues with paxil and maintains steady moods. Prior attempts at weaning down with return of low moods/sadness. Does well with therapy. Hemorrhage of gastrointestin al tract, unspecified 12/11/2016 Asthma 08/16/2021 Lung nodules 04/04/2023 Overview: 04/21/2021 CTA chest: WNL, nodules not identified 05/19/18 CT chest WO Resolution of tree-in-bud type pulmonary nodules seen within the right upper lobe on prior examinations. Other subcentimeter pulmonary nodules are stable, up to 4 mm. 01/13/18 CT chest WOnear complete resolution tree-in-bud type pulmonary nodules RUL 01/08/17 suggesting resolving chronic pneumonia 04/10/17 CT chest WO: no lung abnormality. 1cm low attenuation lesion right hepatic lobe Last Assessment & Plan: Assessment: No mention of lung nodules on 03/2021 chest CTA. Stable nodules on [address] Patient is following with pulmonology. documented as of this encounter (statuses as of 07/01/2023) [facility]11-04-[facility]21 History of Past illness Narrative* Problem Noted Date Diagnosed Date Resolved Date Iron deficiency anemia 06/29/202104/04 Last Assessment & Plan: Assessment: Previously receiving iron infusions, last 07/21/21. Last H&H - 10.2 & 33.8 (06/2021). No current iron supplementation. Other chest pain 03/15/2021 08/16/2021 Overview: NM cardiac perfusion stress test: Normal, no inducible ischemia or scarred myocardium. LV normal size, LVSF normal with ejection fraction 74%, RV size normal LV size, 06/05/2019 echocardiogram: LVSF NL, EF 64%, no ventricular wall motion abnormalities, no LVDD. RV size and RV SF normal, RVSP 37mmHg consistent with mild pulmonary hypertension. RA and LA normal size. MV 1+ MVR, trace TVI, 1+ TVR, AV mild thickening, gradient peak 7mmHg:, Trace PVR, mild ascending aortic dilation 3.2 cm Obesity, Class I, BMI 30-34.9 01/13/2018 08/16/2021 Last Assessment & Plan: Assessment: Body mass index is 33.52 kg/m . Primary osteoarthritis of left knee 08/09/2015 08/16/2021 RAVIN (obstructive sleep apnea) 05/09/2013 08/16/2021 Overview: CPAP @ 12 cm , AHI 22 , DME [facility] Last Assessment & Plan: Assessment: c/w cpap Plantar fasciitis, bilateral 08/06/2012 12/11/2016 Breast density 01/25/2010 12/11/2016 Overview: Rt Breast- appt upcoming w/Dr. Vickers for Bx 03/04 Diarrhea 09/09/2008 12/11/2016 Anxiety state, unspecified 1 Last Assessment & Plan: She continues with paxil and maintains steady moods. Prior attempts at weaning down with return of low moods/sadness. Does well with therapy. Hemorrhage of gastrointestin al tract, unspecified 12/11/2016 Asthma 08/16/2021 Lung nodules 04/04/2023 Overview: 04/21/2021 CTA chest: WNL, nodules not identified 05/19/18 CT chest WO Resolution of tree-in-bud type pulmonary nodules seen within the right upper lobe on prior examinations. Other subcentimeter pulmonary nodules are stable, up to 4 mm. 01/13/18 CT chest WOnear complete resolution tree-in-bud type pulmonary nodules RUL 01/08/17 suggesting resolving chronic pneumonia 04/10/17 CT chest WO: no lung abnormality. 1cm low attenuation lesion right hepatic lobe Last Assessment & Plan: Assessment: No mention of lung nodules on 03/2021 chest CTA. Stable nodules on [address] Patient is following with pulmonology. documented as of this encounter (statuses as of 07/01/2023) [facility]-04[facility]21 History of Past illness Narrative* Problem Noted Date Diagnosed Date Resolved Date Iron deficiency anemia 06/29/202104/04 Last Assessment & Plan: Assessment: Previously receiving iron infusions, last 07/21/21. Last H&H - 10.2 & 33.8 (06/2021). No current iron supplementation. Other chest pain 03/15/2021 08/16/2021 Overview: NM cardiac perfusion stress test: Normal, no inducible ischemia or scarred myocardium. LV normal size, LVSF normal with ejection fraction 74%, RV size normal LV size, 06/05/2019 echocardiogram: LVSF NL, EF 64%, no ventricular wall motion abnormalities, no LVDD. RV size and RV SF normal, RVSP 37mmHg consistent with mild pulmonary hypertension. RA and LA normal size. MV 1+ MVR, trace TVI, 1+ TVR, AV mild thickening, gradient peak 7mmHg:, Trace PVR, mild ascending aortic dilation 3.2 cm Obesity, Class I, BMI 30-34.9 01/13/2018 08/16/2021 Last Assessment & Plan: Assessment: Body mass index is 33.52 kg/m . Primary osteoarthritis of left knee 08/09/2015 08/16/2021 RAVIN (obstructive sleep apnea) 05/09/2013 08/16/2021 Overview: CPAP @ 12 cm , AHI 22 , DME [facility] Last Assessment & Plan: Assessment: c/w cpap Plantar fasciitis, bilateral 08/06/2012 12/11/2016 Breast density 01/25/2010 12/11/2016 Overview: Rt Breast- appt upcoming w/Dr. Vickers for Bx 03/04 Diarrhea 09/09/2008 12/11/2016 Anxiety state, unspecified 1 Last Assessment & Plan: She continues with paxil and maintains steady moods. Prior attempts at weaning down with return of low moods/sadness. Does well with therapy. Hemorrhage of gastrointestin al tract, unspecified 12/11/2016 Asthma 08/16/2021 Lung nodules 04/04/2023 Overview: 04/21/2021 CTA chest: WNL, nodules not identified 05/19/18 CT chest WO Resolution of tree-in-bud type pulmonary nodules seen within the right upper lobe on prior examinations. Other subcentimeter pulmonary nodules are stable, up to 4 mm. 01/13/18 CT chest WOnear complete resolution tree-in-bud type pulmonary nodules RUL 01/08/17 suggesting resolving chronic pneumonia 04/10/17 CT chest WO: no lung abnormality. 1cm low attenuation lesion right hepatic lobe Last Assessment & Plan: Assessment: No mention of lung nodules on 03/2021 chest CTA. Stable nodules on [address] Patient is following with pulmonology. documented as of this encounter (statuses as of 07/02/2023) [facility]-04[facility] History of Past illness Narrative* Problem Noted Date Diagnosed Date Resolved Date Iron deficiency anemia 06/29/202104/04 Last Assessment & Plan: Assessment: Previously receiving iron infusions, last 07/21/21. Last H&H - 10.2 & 33.8 (06/2021). No current iron supplementation. Other chest pain 03/15/2021 08/16/2021 Overview: NM cardiac perfusion stress test: Normal, no inducible ischemia or scarred myocardium. LV normal size, LVSF normal with ejection fraction 74%, RV size normal LV size, 06/05/2019 echocardiogram: LVSF NL, EF 64%, no ventricular wall motion abnormalities, no LVDD. RV size and RV SF normal, RVSP 37mmHg consistent with mild pulmonary hypertension. RA and LA normal size. MV 1+ MVR, trace TVI, 1+ TVR, AV mild thickening, gradient peak 7mmHg:, Trace PVR, mild ascending aortic dilation 3.2 cm Obesity, Class I, BMI 30-34.9 01/13/2018 08/16/2021 Last Assessment & Plan: Assessment: Body mass index is 33.52 kg/m . Primary osteoarthritis of left knee 08/09/2015 08/16/2021 RAVIN (obstructive sleep apnea) 05/09/2013 08/16/2021 Overview: CPAP @ 12 cm , AHI 22 , DME [facility] Last Assessment & Plan: Assessment: c/w cpap Plantar fasciitis, bilateral 08/06/2012 12/11/2016 Breast density 01/25/2010 12/11/2016 Overview: Rt Breast- appt upcoming w/Dr. Vickers for Bx 03/04 Diarrhea 09/09/2008 12/11/2016 Anxiety state, unspecified 1 Last Assessment & Plan: She continues with paxil and maintains steady moods. Prior attempts at weaning down with return of low moods/sadness. Does well with therapy. Hemorrhage of gastrointestin al tract, unspecified 12/11/2016 Asthma 08/16/2021 Lung nodules 04/04/2023 Overview: 04/21/2021 CTA chest: WNL, nodules not identified 05/19/18 CT chest WO Resolution of tree-in-bud type pulmonary nodules seen within the right upper lobe on prior examinations. Other subcentimeter pulmonary nodules are stable, up to 4 mm. 01/13/18 CT chest WOnear complete resolution tree-in-bud type pulmonary nodules RUL 01/08/17 suggesting resolving chronic pneumonia 04/10/17 CT chest WO: no lung abnormality. 1cm low attenuation lesion right hepatic lobe Last Assessment & Plan: Assessment: No mention of lung nodules on 03/2021 chest CTA. Stable nodules on [address] Patient is following with pulmonology. documented as of this encounter (statuses as of 07/25/2023) [facility] History of Past illness Narrative* Problem Noted Date Diagnosed Date Resolved Date Iron deficiency anemia 06/29/202104/04 Last Assessment & Plan: Assessment: Previously receiving iron infusions, last 07/21/21. Last H&H - 10.2 & 33.8 (06/2021). No current iron supplementation. Other chest pain 03/15/2021 08/16/2021 Overview: NM cardiac perfusion stress test: Normal, no inducible ischemia or scarred myocardium. LV normal size, LVSF normal with ejection fraction 74%, RV size normal LV size, 06/05/2019 echocardiogram: LVSF NL, EF 64%, no ventricular wall motion abnormalities, no LVDD. RV size and RV SF normal, RVSP 37mmHg consistent with mild pulmonary hypertension. RA and LA normal size. MV 1+ MVR, trace TVI, 1+ TVR, AV mild thickening, gradient peak 7mmHg:, Trace PVR, mild ascending aortic dilation 3.2 cm Obesity, Class I, BMI 30-34.9 01/13/2018 08/16/2021 Last Assessment & Plan: Assessment: Body mass index is 33.52 kg/m . Primary osteoarthritis of left knee 08/09/2015 08/16/2021 RAVIN (obstructive sleep apnea) 05/09/2013 08/16/2021 Overview: CPAP @ 12 cm , AHI 22 , DME [facility] Last Assessment & Plan: Assessment: c/w cpap Plantar fasciitis, bilateral 08/06/2012 12/11/2016 Breast density 01/25/2010 12/11/2016 Overview: Rt Breast- appt upcoming w/Dr. Vickers for Bx 03/04 Diarrhea 09/09/2008 12/11/2016 Anxiety state, unspecified 1 Last Assessment & Plan: She continues with paxil and maintains steady moods. Prior attempts at weaning down with return of low moods/sadness. Does well with therapy. Hemorrhage of gastrointestin al tract, unspecified 12/11/2016 Asthma 08/16/2021 Lung nodules 04/04/2023 Overview: 04/21/2021 CTA chest: WNL, nodules not identified 05/19/18 CT chest WO Resolution of tree-in-bud type pulmonary nodules seen within the right upper lobe on prior examinations. Other subcentimeter pulmonary nodules are stable, up to 4 mm. 01/13/18 CT chest WOnear complete resolution tree-in-bud type pulmonary nodules RUL 01/08/17 suggesting resolving chronic pneumonia 04/10/17 CT chest WO: no lung abnormality. 1cm low attenuation lesion right hepatic lobe Last Assessment & Plan: Assessment: No mention of lung nodules on 03/2021 chest CTA. Stable nodules on [address] Patient is following with pulmonology. documented as of this encounter (statuses as of 10/11/2023) [facility] History of Past illness Narrative* Problem Noted Date Diagnosed Date Resolved Date Iron deficiency anemia 06/29/202104/04 Last Assessment & Plan: Assessment: Previously receiving iron infusions, last 07/21/21. Last H&H - 10.2 & 33.8 (06/2021). No current iron supplementation. Other chest pain 03/15/2021 08/16/2021 Overview: NM cardiac perfusion stress test: Normal, no inducible ischemia or scarred myocardium. LV normal size, LVSF normal with ejection fraction 74%, RV size normal LV size, 06/05/2019 echocardiogram: LVSF NL, EF 64%, no ventricular wall motion abnormalities, no LVDD. RV size and RV SF normal, RVSP 37mmHg consistent with mild pulmonary hypertension. RA and LA normal size. MV 1+ MVR, trace TVI, 1+ TVR, AV mild thickening, gradient peak 7mmHg:, Trace PVR, mild ascending aortic dilation 3.2 cm Obesity, Class I, BMI 30-34.9 01/13/2018 08/16/2021 Last Assessment & Plan: Assessment: Body mass index is 33.52 kg/m . Primary osteoarthritis of left knee 08/09/2015 08/16/2021 RAVIN (obstructive sleep apnea) 05/09/2013 08/16/2021 Overview: CPAP @ 12 cm , AHI 22 , DME [facility] Last Assessment & Plan: Assessment: c/w cpap Plantar fasciitis, bilateral 08/06/2012 12/11/2016 Breast density 01/25/2010 12/11/2016 Overview: Rt Breast- appt upcoming w/Dr. Vickers for Bx 03/04 Diarrhea 09/09/2008 12/11/2016 Anxiety state, unspecified 1 Last Assessment & Plan: She continues with paxil and maintains steady moods. Prior attempts at weaning down with return of low moods/sadness. Does well with therapy. Hemorrhage of gastrointestin al tract, unspecified 12/11/2016 Asthma 08/16/2021 Lung nodules 04/04/2023 Overview: 04/21/2021 CTA chest: WNL, nodules not identified 05/19/18 CT chest WO Resolution of tree-in-bud type pulmonary nodules seen within the right upper lobe on prior examinations. Other subcentimeter pulmonary nodules are stable, up to 4 mm. 01/13/18 CT chest WOnear complete resolution tree-in-bud type pulmonary nodules RUL 01/08/17 suggesting resolving chronic pneumonia 04/10/17 CT chest WO: no lung abnormality. 1cm low attenuation lesion right hepatic lobe Last Assessment & Plan: Assessment: No mention of lung nodules on 03/2021 chest CTA. Stable nodules on [address] Patient is following with pulmonology. documented as of this encounter (statuses as of 10/23/2023) [facility]11-04-2021 History of Past illness Narrative* Problem Noted Date Diagnosed Date Resolved Date Iron deficiency anemia 06/29/202104/04 Last Assessment & Plan: Assessment: Previously receiving iron infusions, last 07/21/21. Last H&H - 10.2 & 33.8 (06/2021). No current iron supplementation. Other chest pain 03/15/2021 08/16/2021 Overview: NM cardiac perfusion stress test: Normal, no inducible ischemia or scarred myocardium. LV normal size, LVSF normal with ejection fraction 74%, RV size normal LV size, 06/05/2019 echocardiogram: LVSF NL, EF 64%, no ventricular wall motion abnormalities, no LVDD. RV size and RV SF normal, RVSP 37mmHg consistent with mild pulmonary hypertension. RA and LA normal size. MV 1+ MVR, trace TVI, 1+ TVR, AV mild thickening, gradient peak 7mmHg:, Trace PVR, mild ascending aortic dilation 3.2 cm Obesity, Class I, BMI 30-34.9 01/13/2018 08/16/2021 Last Assessment & Plan: Assessment: Body mass index is 33.52 kg/m . Primary osteoarthritis of left knee 08/09/2015 08/16/2021 RAVIN (obstructive sleep apnea) 05/09/2013 08/16/2021 Overview: CPAP @ 12 cm , AHI 22 , [facility] Last Assessment & Plan: Assessment: c/w cpap Plantar fasciitis, bilateral 08/06/2012 12/11/2016 Breast density 01/25/2010 12/11/2016 Overview: Rt Breast- appt upcoming w/Dr. Vickers for Bx 03/04 Diarrhea 09/09/2008 12/11/2016 Anxiety state, unspecified 1 Last Assessment & Plan: She continues with paxil and maintains steady moods. Prior attempts at weaning down with return of low moods/sadness. Does well with therapy. Hemorrhage of gastrointestin al tract, unspecified 12/11/2016 Asthma 08/16/2021 Lung nodules 04/04/2023 Overview: 04/21/2021 CTA chest: WNL, nodules not identified 05/19/18 CT chest WO Resolution of tree-in-bud type pulmonary nodules seen within the right upper lobe on prior examinations. Other subcentimeter pulmonary nodules are stable, up to 4 mm. 01/13/18 CT chest WOnear complete resolution tree-in-bud type pulmonary nodules RUL 01/08/17 suggesting resolving chronic pneumonia 04/10/17 CT chest WO: no lung abnormality. 1cm low attenuation lesion right hepatic lobe Last Assessment & Plan: Assessment: No mention of lung nodules on 03/2021 chest CTA. Stable nodules on [address] Patient is following with pulmonology. documented as of this encounter (statuses as of 11/08/2023) [facility]11-04[facility]21 History of Past illness Narrative* Problem Noted Date Diagnosed Date Resolved Date Iron deficiency anemia 06/29/202104/04 Last Assessment & Plan: Assessment: Previously receiving iron infusions, last 07/21/21. Last H&H - 10.2 & 33.8 (06/2021). No current iron supplementation. Other chest pain 03/15/2021 08/16/2021 Overview: NM cardiac perfusion stress test: Normal, no inducible ischemia or scarred myocardium. LV normal size, LVSF normal with ejection fraction 74%, RV size normal LV size, 06/05/2019 echocardiogram: LVSF NL, EF 64%, no ventricular wall motion abnormalities, no LVDD. RV size and RV SF normal, RVSP 37mmHg consistent with mild pulmonary hypertension. RA and LA normal size. MV 1+ MVR, trace TVI, 1+ TVR, AV mild thickening, gradient peak 7mmHg:, Trace PVR, mild ascending aortic dilation 3.2 cm Obesity, Class I, BMI 30-34.9 01/13/2018 08/16/2021 Last Assessment & Plan: Assessment: Body mass index is 33.52 kg/m . Primary osteoarthritis of left knee 08/09/2015 08/16/2021 RAVIN (obstructive sleep apnea) 05/09/2013 08/16/2021 Overview: CPAP @ 12 cm , AHI 22 , DME [facility] Last Assessment & Plan: Assessment: c/w cpap Plantar fasciitis, bilateral 08/06/2012 12/11/2016 Breast density 01/25/2010 12/11/2016 Overview: Rt Breast- appt upcoming w/Dr. Vickers for Bx 03/04 Diarrhea 09/09/2008 12/11/2016 Anxiety state, unspecified 1 Last Assessment & Plan: She continues with paxil and maintains steady moods. Prior attempts at weaning down with return of low moods/sadness. Does well with therapy. Hemorrhage of gastrointestin al tract, unspecified 12/11/2016 Asthma 08/16/2021 Lung nodules 04/04/2023 Overview: 04/21/2021 CTA chest: WNL, nodules not identified 05/19/18 CT chest WO Resolution of tree-in-bud type pulmonary nodules seen within the right upper lobe on prior examinations. Other subcentimeter pulmonary nodules are stable, up to 4 mm. 01/13/18 CT chest WOnear complete resolution tree-in-bud type pulmonary nodules RUL 01/08/17 suggesting resolving chronic pneumonia 04/10/17 CT chest WO: no lung abnormality. 1cm low attenuation lesion right hepatic lobe Last Assessment & Plan: Assessment: No mention of lung nodules on 03/2021 chest CTA. Stable nodules on [address] Patient is following with pulmonology. documented as of this encounter (statuses as of 11/12/2023) [facility] History of Past illness Narrative* Problem Noted Date Diagnosed Date Resolved Date Iron deficiency anemia 06/29/202104/04 Last Assessment & Plan: Assessment: Previously receiving iron infusions, last 07/21/21. Last H&H - 10.2 & 33.8 (06/2021). No current iron supplementation. Other chest pain 03/15/2021 08/16/2021 Overview: NM cardiac perfusion stress test: Normal, no inducible ischemia or scarred myocardium. LV normal size, LVSF normal with ejection fraction 74%, RV size normal LV size, 06/05/2019 echocardiogram: LVSF NL, EF 64%, no ventricular wall motion abnormalities, no LVDD. RV size and RV SF normal, RVSP 37mmHg consistent with mild pulmonary hypertension. RA and LA normal size. MV 1+ MVR, trace TVI, 1+ TVR, AV mild thickening, gradient peak 7mmHg:, Trace PVR, mild ascending aortic dilation 3.2 cm Obesity, Class I, BMI 30-34.9 01/13/2018 08/16/2021 Last Assessment & Plan: Assessment: Body mass index is 33.52 kg/m . Primary osteoarthritis of left knee 08/09/2015 08/16/2021 RAVIN (obstructive sleep apnea) 05/09/2013 08/16/2021 Overview: CPAP @ 12 cm , AHI 22 , [facility] Last Assessment & Plan: Assessment: c/w cpap Plantar fasciitis, bilateral 08/06/2012 12/11/2016 Breast density 01/25/2010 12/11/2016 Overview: Rt Breast- appt upcoming w/Dr. Vickers for Bx 03/04 Diarrhea 09/09/2008 12/11/2016 Anxiety state, unspecified 1 Last Assessment & Plan: She continues with paxil and maintains steady moods. Prior attempts at weaning down with return of low moods/sadness. Does well with therapy. Hemorrhage of gastrointestin al tract, unspecified 12/11/2016 Asthma 08/16/2021 Lung nodules 04/04/2023 Overview: 04/21/2021 CTA chest: WNL, nodules not identified 05/19/18 CT chest WO Resolution of tree-in-bud type pulmonary nodules seen within the right upper lobe on prior examinations. Other subcentimeter pulmonary nodules are stable, up to 4 mm. 01/13/18 CT chest WOnear complete resolution tree-in-bud type pulmonary nodules RUL 01/08/17 suggesting resolving chronic pneumonia 04/10/17 CT chest WO: no lung abnormality. 1cm low attenuation lesion right hepatic lobe Last Assessment & Plan: Assessment: No mention of lung nodules on 03/2021 chest CTA. Stable nodules on [address] Patient is following with pulmonology. documented as of this encounter (statuses as of 11/14/2023) [facility]11-04-[facility]21 History of Past illness Narrative* Problem Noted Date Diagnosed Date Resolved Date Iron deficiency anemia 06/29/202104/04 Last Assessment & Plan: Assessment: Previously receiving iron infusions, last 07/21/21. Last H&H - 10.2 & 33.8 (06/2021). No current iron supplementation. Other chest pain 03/15/2021 08/16/2021 Overview: NM cardiac perfusion stress test: Normal, no inducible ischemia or scarred myocardium. LV normal size, LVSF normal with ejection fraction 74%, RV size normal LV size, 06/05/2019 echocardiogram: LVSF NL, EF 64%, no ventricular wall motion abnormalities, no LVDD. RV size and RV SF normal, RVSP 37mmHg consistent with mild pulmonary hypertension. RA and LA normal size. MV 1+ MVR, trace TVI, 1+ TVR, AV mild thickening, gradient peak 7mmHg:, Trace PVR, mild ascending aortic dilation 3.2 cm Obesity, Class I, BMI 30-34.9 01/13/2018 08/16/2021 Last Assessment & Plan: Assessment: Body mass index is 33.52 kg/m . Primary osteoarthritis of left knee 08/09/2015 08/16/2021 RAVIN (obstructive sleep apnea) 05/09/2013 08/16/2021 Overview: CPAP @ 12 cm , AHI 22 , [facility] Last Assessment & Plan: Assessment: c/w cpap Plantar fasciitis, bilateral 08/06/2012 12/11/2016 Breast density 01/25/2010 12/11/2016 Overview: Rt Breast- appt upcoming w/Dr. Vickers for Bx 03/04 Diarrhea 09/09/2008 12/11/2016 Anxiety state, unspecified 1 Last Assessment & Plan: She continues with paxil and maintains steady moods. Prior attempts at weaning down with return of low moods/sadness. Does well with therapy. Hemorrhage of gastrointestin al tract, unspecified 12/11/2016 Asthma 08/16/2021 Lung nodules 04/04/2023 Overview: 04/21/2021 CTA chest: WNL, nodules not identified 05/19/18 CT chest WO Resolution of tree-in-bud type pulmonary nodules seen within the right upper lobe on prior examinations. Other subcentimeter pulmonary nodules are stable, up to 4 mm. 01/13/18 CT chest WOnear complete resolution tree-in-bud type pulmonary nodules RUL 01/08/17 suggesting resolving chronic pneumonia 04/10/17 CT chest WO: no lung abnormality. 1cm low attenuation lesion right hepatic lobe Last Assessment & Plan: Assessment: No mention of lung nodules on 03/2021 chest CTA. Stable nodules on [address] Patient is following with pulmonology. documented as of this encounter (statuses as of 12/11/2023) [facility]11-04-[facility]21 History of Past illness Narrative* Problem Noted Date Diagnosed Date Resolved Date Iron deficiency anemia 06/29/202104/04 Last Assessment & Plan: Assessment: Previously receiving iron infusions, last 07/21/21. Last H&H - 10.2 & 33.8 (06/2021). No current iron supplementation. Other chest pain 03/15/2021 08/16/2021 Overview: NM cardiac perfusion stress test: Normal, no inducible ischemia or scarred myocardium. LV normal size, LVSF normal with ejection fraction 74%, RV size normal LV size, 06/05/2019 echocardiogram: LVSF NL, EF 64%, no ventricular wall motion abnormalities, no LVDD. RV size and RV SF normal, RVSP 37mmHg consistent with mild pulmonary hypertension. RA and LA normal size. MV 1+ MVR, trace TVI, 1+ TVR, AV mild thickening, gradient peak 7mmHg:, Trace PVR, mild ascending aortic dilation 3.2 cm Obesity, Class I, BMI 30-34.9 01/13/2018 08/16/2021 Last Assessment & Plan: Assessment: Body mass index is 33.52 kg/m . Primary osteoarthritis of left knee 08/09/2015 08/16/2021 RAVIN (obstructive sleep apnea) 05/09/2013 08/16/2021 Overview: CPAP @ 12 cm , AHI 22 , DME [facility] Last Assessment & Plan: Assessment: c/w cpap Plantar fasciitis, bilateral 08/06/2012 12/11/2016 Breast density 01/25/2010 12/11/2016 Overview: Rt Breast- appt upcoming w/Dr. Vickers for Bx 03/04 Diarrhea 09/09/2008 12/11/2016 Anxiety state, unspecified 1 Last Assessment & Plan: She continues with paxil and maintains steady moods. Prior attempts at weaning down with return of low moods/sadness. Does well with therapy. Hemorrhage of gastrointestin al tract, unspecified 12/11/2016 Asthma 08/16/2021 Lung nodules 04/04/2023 Overview: 04/21/2021 CTA chest: WNL, nodules not identified 05/19/18 CT chest WO Resolution of tree-in-bud type pulmonary nodules seen within the right upper lobe on prior examinations. Other subcentimeter pulmonary nodules are stable, up to 4 mm. 01/13/18 CT chest WOnear complete resolution tree-in-bud type pulmonary nodules RUL 01/08/17 suggesting resolving chronic pneumonia 04/10/17 CT chest WO: no lung abnormality. 1cm low attenuation lesion right hepatic lobe Last Assessment & Plan: Assessment: No mention of lung nodules on 03/2021 chest CTA. Stable nodules on [address] Patient is following with pulmonology. documented as of this encounter (statuses as of 12/11/2023) [facility]04[facility] History of Past illness Narrative* Problem Noted Date Diagnosed Date Resolved Date Iron deficiency anemia 06/29/202104/04 Last Assessment & Plan: Assessment: Previously receiving iron infusions, last 07/21/21. Last H&H - 10.2 & 33.8 (06/2021). No current iron supplementation. Other chest pain 03/15/2021 08/16/2021 Overview: NM cardiac perfusion stress test: Normal, no inducible ischemia or scarred myocardium. LV normal size, LVSF normal with ejection fraction 74%, RV size normal LV size, 06/05/2019 echocardiogram: LVSF NL, EF 64%, no ventricular wall motion abnormalities, no LVDD. RV size and RV SF normal, RVSP 37mmHg consistent with mild pulmonary hypertension. RA and LA normal size. MV 1+ MVR, trace TVI, 1+ TVR, AV mild thickening, gradient peak 7mmHg:, Trace PVR, mild ascending aortic dilation 3.2 cm Obesity, Class I, BMI 30-34.9 01/13/2018 08/16/2021 Last Assessment & Plan: Assessment: Body mass index is 33.52 kg/m . Primary osteoarthritis of left knee 08/09/2015 08/16/2021 RAVIN (obstructive sleep apnea) 05/09/2013 08/16/2021 Overview: CPAP @ 12 cm , AHI 22 , DME [facility] Last Assessment & Plan: Assessment: c/w cpap Plantar fasciitis, bilateral 08/06/2012 12/11/2016 Breast density 01/25/2010 12/11/2016 Overview: Rt Breast- appt upcoming w/Dr. Vickers for Bx 03/04 Diarrhea 09/09/2008 12/11/2016 Anxiety state, unspecified 1 Last Assessment & Plan: She continues with paxil and maintains steady moods. Prior attempts at weaning down with return of low moods/sadness. Does well with therapy. Hemorrhage of gastrointestin al tract, unspecified 12/11/2016 Asthma 08/16/2021 Lung nodules 04/04/2023 Overview: 04/21/2021 CTA chest: WNL, nodules not identified 05/19/18 CT chest WO Resolution of tree-in-bud type pulmonary nodules seen within the right upper lobe on prior examinations. Other subcentimeter pulmonary nodules are stable, up to 4 mm. 01/13/18 CT chest WOnear complete resolution tree-in-bud type pulmonary nodules RUL 01/08/17 suggesting resolving chronic pneumonia 04/10/17 CT chest WO: no lung abnormality. 1cm low attenuation lesion right hepatic lobe Last Assessment & Plan: Assessment: No mention of lung nodules on 03/2021 chest CTA. Stable nodules on [address] Patient is following with pulmonology. documented as of this encounter (statuses as of 12/11/2023) [place] [address]-04-2021 Miscellaneous Notes* Telephone Encounter - Saige Banuelos LPN - 05/29/2021 3:04 PM EDT Pt's sister (sister in the car with pt) reports pt has diarrhea, stomach does not feel well, headache & feels hot/cold. No fever. Pt's sister states pt had a neg covid test. Asking for an appt today. All appts full & pt's sister states she will probably take pt to . Saige Banuelos LPN [facility] Past illness Narrative* Problem Noted Date Resolved Date Other chest pain 03/15/2021 08/16/2021 Overview: NM cardiac perfusion stress test: Normal, no inducible ischemia or scarred myocardium. LV normal size, LVSF normal with ejection fraction 74%, RV size normal LV size, 06/05/2019 echocardiogram: LVSF NL, EF 64%, no ventricular wall motion abnormalities, no LVDD. RV size and RV SF normal, RVSP 37mmHg consistent with mild pulmonary hypertension. RA and LA normal size. MV 1+ MVR, trace TVI, 1+ TVR, AV mild thickening, gradient peak 7mmHg:, Trace PVR, mild ascending aortic dilation 3.2 cm Obesity, Class I, BMI 30-34.9 01/13/2018 Last Assessment & Plan: Assessment: Body mass index is 33.52 kg/m . Primary osteoarthritis of left knee 08/09/2015 08/16/2021 RAVIN (obstructive sleep apnea) 05/09/2013 Overview: CPAP @ 12 cm , AHI 22 , [facility] Last Assessment & Plan: Assessment: c/w cpap Plantar fasciitis, bilateral 08/06/2012 Breast density 01/25/2010 12/11/2016 Overview: Rt Breast- appt upcoming w/Dr. Vickers for Bx 03/04 Diarrhea 09/09/2008 12/11/2016 Anxiety state, unspecified 06/13 Last Assessment & Plan: She continues with paxil and maintains steady moods. Prior attempts at weaning down with return of low moods/sadness. Does well with therapy. Hemorrhage of gastrointestinal tract, unspecifie d 12/11/2016 Asthma 08/16/2021 documented as of this encounter (statuses as of 12/07/2021) [facility] History of Past illness Narrative* Problem Noted Date Resolved Date Other chest pain 03/15/2021 08/16/2021 Overview: NM cardiac perfusion stress test: Normal, no inducible ischemia or scarred myocardium. LV normal size, LVSF normal with ejection fraction 74%, RV size normal LV size, 06/05/2019 echocardiogram: LVSF NL, EF 64%, no ventricular wall motion abnormalities, no LVDD. RV size and RV SF normal, RVSP 37mmHg consistent with mild pulmonary hypertension. RA and LA normal size. MV 1+ MVR, trace TVI, 1+ TVR, AV mild thickening, gradient peak 7mmHg:, Trace PVR, mild ascending aortic dilation 3.2 cm Obesity, Class I, BMI 30-34.9 01/13/2018 Last Assessment & Plan: Assessment: Body mass index is 33.52 kg/m . Primary osteoarthritis of left knee 08/09/2015 08/16/2021 RAVIN (obstructive sleep apnea) 05/09/2013 Overview: CPAP @ 12 cm , AHI 22 , DME [facility] Last Assessment & Plan: Assessment: c/w cpap Plantar fasciitis, bilateral 08/06/2012 Breast density 01/25/2010 12/11/2016 Overview: Rt Breast- appt upcoming w/Dr. Vickers for Bx 03/04 Diarrhea 09/09/2008 12/11/2016 Anxiety state, unspecified 06/13 Last Assessment & Plan: She continues with paxil and maintains steady moods. Prior attempts at weaning down with return of low moods/sadness. Does well with therapy. Hemorrhage of gastrointestinal tract, unspecifie d 12/11/2016 Asthma 08/16/2021 documented as of this encounter (statuses as of 12/20/2021) [facility] History of Past illness Narrative* Problem Noted Date Resolved Date Other chest pain 03/15/2021 08/16/2021 Overview: NM cardiac perfusion stress test: Normal, no inducible ischemia or scarred myocardium. LV normal size, LVSF normal with ejection fraction 74%, RV size normal LV size, 06/05/2019 echocardiogram: LVSF NL, EF 64%, no ventricular wall motion abnormalities, no LVDD. RV size and RV SF normal, RVSP 37mmHg consistent with mild pulmonary hypertension. RA and LA normal size. MV 1+ MVR, trace TVI, 1+ TVR, AV mild thickening, gradient peak 7mmHg:, Trace PVR, mild ascending aortic dilation 3.2 cm Obesity, Class I, BMI 30-34.9 01/13/2018 Last Assessment & Plan: Assessment: Body mass index is 33.52 kg/m . Primary osteoarthritis of left knee 08/09/2015 08/16/2021 RAVIN (obstructive sleep apnea) 05/09/2013 Overview: CPAP @ 12 cm , AHI 22 , DME [facility] Last Assessment & Plan: Assessment: c/w cpap Plantar fasciitis, bilateral 08/06/2012 Breast density 01/25/2010 12/11/2016 Overview: Rt Breast- appt upcoming w/Dr. Vickers for Bx 03/04 Diarrhea 09/09/2008 12/11/2016 Anxiety state, unspecified 06/13 Last Assessment & Plan: She continues with paxil and maintains steady moods. Prior attempts at weaning down with return of low moods/sadness. Does well with therapy. Hemorrhage of gastrointestinal tract, unspecifie d 12/11/2016 Asthma 08/16/2021 documented as of this encounter (statuses as of 12/26/2021) [facility] History of Past illness Narrative* Problem Noted Date Resolved Date Other chest pain 03/15/2021 08/16/2021 Overview: NM cardiac perfusion stress test: Normal, no inducible ischemia or scarred myocardium. LV normal size, LVSF normal with ejection fraction 74%, RV size normal LV size, 06/05/2019 echocardiogram: LVSF NL, EF 64%, no ventricular wall motion abnormalities, no LVDD. RV size and RV SF normal, RVSP 37mmHg consistent with mild pulmonary hypertension. RA and LA normal size. MV 1+ MVR, trace TVI, 1+ TVR, AV mild thickening, gradient peak 7mmHg:, Trace PVR, mild ascending aortic dilation 3.2 cm Obesity, Class I, BMI 30-34.9 01/13/2018 Last Assessment & Plan: Assessment: Body mass index is 33.52 kg/m . Primary osteoarthritis of left knee 08/09/2015 08/16/2021 RAVIN (obstructive sleep apnea) 05/09/2013 Overview: CPAP @ 12 cm , AHI 22 , DME [facility] Last Assessment & Plan: Assessment: c/w cpap Plantar fasciitis, bilateral 08/06/2012 Breast density 01/25/2010 12/11/2016 Overview: Rt Breast- appt upcoming w/Dr. Vickers for Bx 03/04 Diarrhea 09/09/2008 12/11/2016 Anxiety state, unspecified 06/13 Last Assessment & Plan: She continues with paxil and maintains steady moods. Prior attempts at weaning down with return of low moods/sadness. Does well with therapy. Hemorrhage of gastrointestinal tract, unspecifie d 12/11/2016 Asthma 08/16/2021 documented as of this encounter (statuses as of 12/28/2021) [facility] Past illness Narrative* Problem Noted Date Resolved Date Other chest pain 03/15/2021 08/16/2021 Overview: NM cardiac perfusion stress test: Normal, no inducible ischemia or scarred myocardium. LV normal size, LVSF normal with ejection fraction 74%, RV size normal LV size, 06/05/2019 echocardiogram: LVSF NL, EF 64%, no ventricular wall motion abnormalities, no LVDD. RV size and RV SF normal, RVSP 37mmHg consistent with mild pulmonary hypertension. RA and LA normal size. MV 1+ MVR, trace TVI, 1+ TVR, AV mild thickening, gradient peak 7mmHg:, Trace PVR, mild ascending aortic dilation 3.2 cm Obesity, Class I, BMI 30-34.9 01/13/2018 Last Assessment & Plan: Assessment: Body mass index is 33.52 kg/m . Primary osteoarthritis of left knee 08/09/2015 08/16/2021 RAVIN (obstructive sleep apnea) 05/09/2013 Overview: CPAP @ 12 cm , AHI 22 , DME [facility] Last Assessment & Plan: Assessment: c/w cpap Plantar fasciitis, bilateral 08/06/2012 Breast density 01/25/2010 12/11/2016 Overview: Rt Breast- appt upcoming w/Dr. Vickers for Bx 03/04 Diarrhea 09/09/2008 12/11/2016 Anxiety state, unspecified 06/13 Last Assessment & Plan: She continues with paxil and maintains steady moods. Prior attempts at weaning down with return of low moods/sadness. Does well with therapy. Hemorrhage of gastrointestinal tract, unspecifie d 12/11/2016 Asthma 08/16/2021 documented as of this encounter (statuses as of 01/01/2022) [facility] of Past illness Narrative* Problem Noted Date Resolved Date Other chest pain 03/15/2021 08/16/2021 Overview: NM cardiac perfusion stress test: Normal, no inducible ischemia or scarred myocardium. LV normal size, LVSF normal with ejection fraction 74%, RV size normal LV size, 06/05/2019 echocardiogram: LVSF NL, EF 64%, no ventricular wall motion abnormalities, no LVDD. RV size and RV SF normal, RVSP 37mmHg consistent with mild pulmonary hypertension. RA and LA normal size. MV 1+ MVR, trace TVI, 1+ TVR, AV mild thickening, gradient peak 7mmHg:, Trace PVR, mild ascending aortic dilation 3.2 cm Obesity, Class I, BMI 30-34.9 01/13/2018 Last Assessment & Plan: Assessment: Body mass index is 33.52 kg/m . Primary osteoarthritis of left knee 08/09/2015 08/16/2021 RAVIN (obstructive sleep apnea) 05/09/2013 Overview: CPAP @ 12 cm , AHI 22 , DME [facility] Last Assessment & Plan: Assessment: c/w cpap Plantar fasciitis, bilateral 08/06/2012 Breast density 01/25/2010 12/11/2016 Overview: Rt Breast- appt upcoming w/Dr. Vickers for Bx 03/04 Diarrhea 09/09/2008 12/11/2016 Anxiety state, unspecified 06/13 Last Assessment & Plan: She continues with paxil and maintains steady moods. Prior attempts at weaning down with return of low moods/sadness. Does well with therapy. Hemorrhage of gastrointestinal tract, unspecifie d 12/11/2016 Asthma 08/16/2021 documented as of this encounter (statuses as of 01/01/2022) [facility] Past illness Narrative* Problem Noted Date Resolved Date Other chest pain 03/15/2021 08/16/2021 Overview: NM cardiac perfusion stress test: Normal, no inducible ischemia or scarred myocardium. LV normal size, LVSF normal with ejection fraction 74%, RV size normal LV size, 06/05/2019 echocardiogram: LVSF NL, EF 64%, no ventricular wall motion abnormalities, no LVDD. RV size and RV SF normal, RVSP 37mmHg consistent with mild pulmonary hypertension. RA and LA normal size. MV 1+ MVR, trace TVI, 1+ TVR, AV mild thickening, gradient peak 7mmHg:, Trace PVR, mild ascending aortic dilation 3.2 cm Obesity, Class I, BMI 30-34.9 01/13/2018 Last Assessment & Plan: Assessment: Body mass index is 33.52 kg/m . Primary osteoarthritis of left knee 08/09/2015 08/16/2021 RAVIN (obstructive sleep apnea) 05/09/2013 Overview: CPAP @ 12 cm , AHI 22 , D[facility] Last Assessment & Plan: Assessment: c/w cpap Plantar fasciitis, bilateral 08/06/2012 Breast density 01/25/2010 12/11/2016 Overview: Rt Breast- appt upcoming w/Dr. Vickers for Bx 03/04 Diarrhea 09/09/2008 12/11/2016 Anxiety state, unspecified 06/13 Last Assessment & Plan: She continues with paxil and maintains steady moods. Prior attempts at weaning down with return of low moods/sadness. Does well with therapy. Hemorrhage of gastrointestinal tract, unspecifie d 12/11/2016 Asthma 08/16/2021 documented as of this encounter (statuses as of 01/02/2022) [facility]07-21-2021 History of Past illness Narrative* Problem Noted Date Resolved Date Other chest pain 03/15/2021 08/16/2021 Overview: NM cardiac perfusion stress test: Normal, no inducible ischemia or scarred myocardium. LV normal size, LVSF normal with ejection fraction 74%, RV size normal LV size, 06/05/2019 echocardiogram: LVSF NL, EF 64%, no ventricular wall motion abnormalities, no LVDD. RV size and RV SF normal, RVSP 37mmHg consistent with mild pulmonary hypertension. RA and LA normal size. MV 1+ MVR, trace TVI, 1+ TVR, AV mild thickening, gradient peak 7mmHg:, Trace PVR, mild ascending aortic dilation 3.2 cm Obesity, Class I, BMI 30-34.9 01/13/2018 Last Assessment & Plan: Assessment: Body mass index is 33.52 kg/m . Primary osteoarthritis of left knee 08/09/2015 08/16/2021 RAVIN (obstructive sleep apnea) 05/09/2013 Overview: CPAP @ 12 cm , AHI 22 , DME [facility] Last Assessment & Plan: Assessment: c/w cpap Plantar fasciitis, bilateral 08/06/2012 Breast density 01/25/2010 12/11/2016 Overview: Rt Breast- appt upcoming w/Dr. Vickers for Bx 03/04 Diarrhea 09/09/2008 12/11/2016 Anxiety state, unspecified 06/13 Last Assessment & Plan: She continues with paxil and maintains steady moods. Prior attempts at weaning down with return of low moods/sadness. Does well with therapy. Hemorrhage of gastrointestinal tract, unspecifie d 12/11/2016 Asthma 08/16/2021 documented as of this encounter (statuses as of 02/20/2022) [facility]21 History of Past illness Narrative* Problem Noted Date Resolved Date Other chest pain 03/15/2021 08/16/2021 Overview: NM cardiac perfusion stress test: Normal, no inducible ischemia or scarred myocardium. LV normal size, LVSF normal with ejection fraction 74%, RV size normal LV size, 06/05/2019 echocardiogram: LVSF NL, EF 64%, no ventricular wall motion abnormalities, no LVDD. RV size and RV SF normal, RVSP 37mmHg consistent with mild pulmonary hypertension. RA and LA normal size. MV 1+ MVR, trace TVI, 1+ TVR, AV mild thickening, gradient peak 7mmHg:, Trace PVR, mild ascending aortic dilation 3.2 cm Obesity, Class I, BMI 30-34.9 01/13/2018 Last Assessment & Plan: Assessment: Body mass index is 33.52 kg/m . Primary osteoarthritis of left knee 08/09/2015 08/16/2021 RAVIN (obstructive sleep apnea) 05/09/2013 Overview: CPAP @ 12 cm , AHI 22 , [facility] Last Assessment & Plan: Assessment: c/w cpap Plantar fasciitis, bilateral 08/06/2012 Breast density 01/25/2010 12/11/2016 Overview: Rt Breast- appt upcoming w/Dr. Vickers for Bx 03/04 Diarrhea 09/09/2008 12/11/2016 Anxiety state, unspecified 06/13 Last Assessment & Plan: She continues with paxil and maintains steady moods. Prior attempts at weaning down with return of low moods/sadness. Does well with therapy. Hemorrhage of gastrointestinal tract, unspecifie d 12/11/2016 Asthma 08/16/2021 documented as of this encounter (statuses as of 02/22/2022) [facility] History of Past illness Narrative* Problem Noted Date Resolved Date Other chest pain 03/15/2021 08/16/2021 Overview: NM cardiac perfusion stress test: Normal, no inducible ischemia or scarred myocardium. LV normal size, LVSF normal with ejection fraction 74%, RV size normal LV size, 06/05/2019 echocardiogram: LVSF NL, EF 64%, no ventricular wall motion abnormalities, no LVDD. RV size and RV SF normal, RVSP 37mmHg consistent with mild pulmonary hypertension. RA and LA normal size. MV 1+ MVR, trace TVI, 1+ TVR, AV mild thickening, gradient peak 7mmHg:, Trace PVR, mild ascending aortic dilation 3.2 cm Obesity, Class I, BMI 30-34.9 01/13/2018 Last Assessment & Plan: Assessment: Body mass index is 33.52 kg/m . Primary osteoarthritis of left knee 08/09/2015 08/16/2021 RAVIN (obstructive sleep apnea) 05/09/2013 Overview: CPAP @ 12 cm , AHI 22 , DME [facility] Last Assessment & Plan: Assessment: c/w cpap Plantar fasciitis, bilateral 08/06/2012 Breast density 01/25/2010 12/11/2016 Overview: Rt Breast- appt upcoming w/Dr. Vickers for Bx 03/04 Diarrhea 09/09/2008 12/11/2016 Anxiety state, unspecified 06/13 Last Assessment & Plan: She continues with paxil and maintains steady moods. Prior attempts at weaning down with return of low moods/sadness. Does well with therapy. Hemorrhage of gastrointestinal tract, unspecifie d 12/11/2016 Asthma 08/16/2021 documented as of this encounter (statuses as of 03/21/2022) [facility] History of Past illness Narrative* Problem Noted Date Resolved Date Other chest pain 03/15/2021 08/16/2021 Overview: NM cardiac perfusion stress test: Normal, no inducible ischemia or scarred myocardium. LV normal size, LVSF normal with ejection fraction 74%, RV size normal LV size, 06/05/2019 echocardiogram: LVSF NL, EF 64%, no ventricular wall motion abnormalities, no LVDD. RV size and RV SF normal, RVSP 37mmHg consistent with mild pulmonary hypertension. RA and LA normal size. MV 1+ MVR, trace TVI, 1+ TVR, AV mild thickening, gradient peak 7mmHg:, Trace PVR, mild ascending aortic dilation 3.2 cm Obesity, Class I, BMI 30-34.9 01/13/2018 Last Assessment & Plan: Assessment: Body mass index is 33.52 kg/m . Primary osteoarthritis of left knee 08/09/2015 08/16/2021 RAVIN (obstructive sleep apnea) 05/09/2013 Overview: CPAP @ 12 cm , AHI 22 , DME [facility] Last Assessment & Plan: Assessment: c/w cpap Plantar fasciitis, bilateral 08/06/2012 Breast density 01/25/2010 12/11/2016 Overview: Rt Breast- appt upcoming w/Dr. Vickers for Bx 03/04 Diarrhea 09/09/2008 12/11/2016 Anxiety state, unspecified 06/13 Last Assessment & Plan: She continues with paxil and maintains steady moods. Prior attempts at weaning down with return of low moods/sadness. Does well with therapy. Hemorrhage of gastrointestinal tract, unspecifie d 12/11/2016 Asthma 08/16/2021 documented as of this encounter (statuses as of 03/28/2022) [facility] History of Past illness Narrative* Problem Noted Date Resolved Date Other chest pain 03/15/2021 08/16/2021 Overview: NM cardiac perfusion stress test: Normal, no inducible ischemia or scarred myocardium. LV normal size, LVSF normal with ejection fraction 74%, RV size normal LV size, 06/05/2019 echocardiogram: LVSF NL, EF 64%, no ventricular wall motion abnormalities, no LVDD. RV size and RV SF normal, RVSP 37mmHg consistent with mild pulmonary hypertension. RA and LA normal size. MV 1+ MVR, trace TVI, 1+ TVR, AV mild thickening, gradient peak 7mmHg:, Trace PVR, mild ascending aortic dilation 3.2 cm Obesity, Class I, BMI 30-34.9 01/13/2018 Last Assessment & Plan: Assessment: Body mass index is 33.52 kg/m . Primary osteoarthritis of left knee 08/09/2015 08/16/2021 RAVIN (obstructive sleep apnea) 05/09/2013 Overview: CPAP @ 12 cm , AHI 22 , DME [facility] Last Assessment & Plan: Assessment: c/w cpap Plantar fasciitis, bilateral 08/06/2012 Breast density 01/25/2010 12/11/2016 Overview: Rt Breast- appt upcoming w/Dr. Vickers for Bx 03/04 Diarrhea 09/09/2008 12/11/2016 Anxiety state, unspecified 06/13 Last Assessment & Plan: She continues with paxil and maintains steady moods. Prior attempts at weaning down with return of low moods/sadness. Does well with therapy. Hemorrhage of gastrointestinal tract, unspecifie d 12/11/2016 Asthma 08/16/2021 documented as of this encounter (statuses as of 03/28/2022) [facility] History of Past illness Narrative* Problem Noted Date Resolved Date Other chest pain 03/15/2021 08/16/2021 Overview: NM cardiac perfusion stress test: Normal, no inducible ischemia or scarred myocardium. LV normal size, LVSF normal with ejection fraction 74%, RV size normal LV size, 06/05/2019 echocardiogram: LVSF NL, EF 64%, no ventricular wall motion abnormalities, no LVDD. RV size and RV SF normal, RVSP 37mmHg consistent with mild pulmonary hypertension. RA and LA normal size. MV 1+ MVR, trace TVI, 1+ TVR, AV mild thickening, gradient peak 7mmHg:, Trace PVR, mild ascending aortic dilation 3.2 cm Obesity, Class I, BMI 30-34.9 01/13/2018 Last Assessment & Plan: Assessment: Body mass index is 33.52 kg/m . Primary osteoarthritis of left knee 08/09/2015 08/16/2021 RAVIN (obstructive sleep apnea) 05/09/2013 Overview: CPAP @ 12 cm , AHI 22 , DME [facility] Last Assessment & Plan: Assessment: c/w cpap Plantar fasciitis, bilateral 08/06/2012 Breast density 01/25/2010 12/11/2016 Overview: Rt Breast- appt upcoming w/Dr. Vickers for Bx 03/04 Diarrhea 09/09/2008 12/11/2016 Anxiety state, unspecified 06/13 Last Assessment & Plan: She continues with paxil and maintains steady moods. Prior attempts at weaning down with return of low moods/sadness. Does well with therapy. Hemorrhage of gastrointestinal tract, unspecifie d 12/11/2016 Asthma 08/16/2021 documented as of this encounter (statuses as of 03/29/2022) [facility] History of Past illness Narrative* Problem Noted Date Resolved Date Other chest pain 03/15/2021 08/16/2021 Overview: NM cardiac perfusion stress test: Normal, no inducible ischemia or scarred myocardium. LV normal size, LVSF normal with ejection fraction 74%, RV size normal LV size, 06/05/2019 echocardiogram: LVSF NL, EF 64%, no ventricular wall motion abnormalities, no LVDD. RV size and RV SF normal, RVSP 37mmHg consistent with mild pulmonary hypertension. RA and LA normal size. MV 1+ MVR, trace TVI, 1+ TVR, AV mild thickening, gradient peak 7mmHg:, Trace PVR, mild ascending aortic dilation 3.2 cm Obesity, Class I, BMI 30-34.9 01/13/2018 Last Assessment & Plan: Assessment: Body mass index is 33.52 kg/m . Primary osteoarthritis of left knee 08/09/2015 08/16/2021 RAVIN (obstructive sleep apnea) 05/09/2013 Overview: CPAP @ 12 cm , AHI 22 , [facility] Last Assessment & Plan: Assessment: c/w cpap Plantar fasciitis, bilateral 08/06/2012 Breast density 01/25/2010 12/11/2016 Overview: Rt Breast- appt upcoming w/Dr. Vickers for Bx 03/04 Diarrhea 09/09/2008 12/11/2016 Anxiety state, unspecified 06/13 Last Assessment & Plan: She continues with paxil and maintains steady moods. Prior attempts at weaning down with return of low moods/sadness. Does well with therapy. Hemorrhage of gastrointestinal tract, unspecifie d 12/11/2016 Asthma 08/16/2021 documented as of this encounter (statuses as of 03/30/2022) [facility] History of Past illness Narrative* Problem Noted Date Resolved Date Other chest pain 03/15/2021 08/16/2021 Overview: NM cardiac perfusion stress test: Normal, no inducible ischemia or scarred myocardium. LV normal size, LVSF normal with ejection fraction 74%, RV size normal LV size, 06/05/2019 echocardiogram: LVSF NL, EF 64%, no ventricular wall motion abnormalities, no LVDD. RV size and RV SF normal, RVSP 37mmHg consistent with mild pulmonary hypertension. RA and LA normal size. MV 1+ MVR, trace TVI, 1+ TVR, AV mild thickening, gradient peak 7mmHg:, Trace PVR, mild ascending aortic dilation 3.2 cm Obesity, Class I, BMI 30-34.9 01/13/2018 Last Assessment & Plan: Assessment: Body mass index is 33.52 kg/m . Primary osteoarthritis of left knee 08/09/2015 08/16/2021 RAVIN (obstructive sleep apnea) 05/09/2013 Overview: CPAP @ 12 cm , AHI 22 , D[facility] Last Assessment & Plan: Assessment: c/w cpap Plantar fasciitis, bilateral 08/06/2012 Breast density 01/25/2010 12/11/2016 Overview: Rt Breast- appt upcoming w/Dr. Vickers for Bx 03/04 Diarrhea 09/09/2008 12/11/2016 Anxiety state, unspecified 06/13 Last Assessment & Plan: She continues with paxil and maintains steady moods. Prior attempts at weaning down with return of low moods/sadness. Does well with therapy. Hemorrhage of gastrointestinal tract, unspecifie d 12/11/2016 Asthma 08/16/2021 documented as of this encounter (statuses as of 04/06/2022) [facility] History of Past illness Narrative* Problem Noted Date Resolved Date Other chest pain 03/15/2021 08/16/2021 Overview: LA cardiac perfusion stress test: Normal, no inducible ischemia or scarred myocardium. LV normal size, LVSF normal with ejection fraction 74%, RV size normal LV size, 06/05/2019 echocardiogram: LVSF NL, EF 64%, no ventricular wall motion abnormalities, no LVDD. RV size and RV SF normal, RVSP 37mmHg consistent with mild pulmonary hypertension. RA and LA normal size. MV 1+ MVR, trace TVI, 1+ TVR, AV mild thickening, gradient peak 7mmHg:, Trace PVR, mild ascending aortic dilation 3.2 cm Obesity, Class I, BMI 30-34.9 01/13/2018 Last Assessment & Plan: Assessment: Body mass index is 33.52 kg/m . Primary osteoarthritis of left knee 08/09/2015 08/16/2021 RAVIN (obstructive sleep apnea) 05/09/2013 Overview: CPAP @ 12 cm , AHI 22 , DME [facility] Last Assessment & Plan: Assessment: c/w cpap Plantar fasciitis, bilateral 08/06/2012 Breast density 01/25/2010 12/11/2016 Overview: Rt Breast- appt upcoming w/Dr. Vickers for Bx 03/04 Diarrhea 09/09/2008 12/11/2016 Anxiety state, unspecified 06/13 Last Assessment & Plan: She continues with paxil and maintains steady moods. Prior attempts at weaning down with return of low moods/sadness. Does well with therapy. Hemorrhage of gastrointestinal tract, unspecifie d 12/11/2016 Asthma 08/16/2021 documented as of this encounter (statuses as of 04/08/2022) [facility] History of Past illness Narrative* Problem Noted Date Resolved Date Other chest pain 03/15/2021 08/16/2021 Overview: NM cardiac perfusion stress test: Normal, no inducible ischemia or scarred myocardium. LV normal size, LVSF normal with ejection fraction 74%, RV size normal LV size, 06/05/2019 echocardiogram: LVSF NL, EF 64%, no ventricular wall motion abnormalities, no LVDD. RV size and RV SF normal, RVSP 37mmHg consistent with mild pulmonary hypertension. RA and LA normal size. MV 1+ MVR, trace TVI, 1+ TVR, AV mild thickening, gradient peak 7mmHg:, Trace PVR, mild ascending aortic dilation 3.2 cm Obesity, Class I, BMI 30-34.9 01/13/2018 Last Assessment & Plan: Assessment: Body mass index is 33.52 kg/m . Primary osteoarthritis of left knee 08/09/2015 08/16/2021 RAVIN (obstructive sleep apnea) 05/09/2013 Overview: CPAP @ 12 cm , AHI 22 , DME [facility] Last Assessment & Plan: Assessment: c/w cpap Plantar fasciitis, bilateral 08/06/2012 Breast density 01/25/2010 12/11/2016 Overview: Rt Breast- appt upcoming w/Dr. Vickers for Bx 03/04 Diarrhea 09/09/2008 12/11/2016 Anxiety state, unspecified 06/13 Last Assessment & Plan: She continues with paxil and maintains steady moods. Prior attempts at weaning down with return of low moods/sadness. Does well with therapy. Hemorrhage of gastrointestinal tract, unspecifie d 12/11/2016 Asthma 08/16/2021 documented as of this encounter (statuses as of 04/13/2022) [facility] History of Past illness Narrative* Problem Noted Date Resolved Date Other chest pain 03/15/2021 08/16/2021 Overview: NM cardiac perfusion stress test: Normal, no inducible ischemia or scarred myocardium. LV normal size, LVSF normal with ejection fraction 74%, RV size normal LV size, 06/05/2019 echocardiogram: LVSF NL, EF 64%, no ventricular wall motion abnormalities, no LVDD. RV size and RV SF normal, RVSP 37mmHg consistent with mild pulmonary hypertension. RA and LA normal size. MV 1+ MVR, trace TVI, 1+ TVR, AV mild thickening, gradient peak 7mmHg:, Trace PVR, mild ascending aortic dilation 3.2 cm Obesity, Class I, BMI 30-34.9 01/13/2018 Last Assessment & Plan: Assessment: Body mass index is 33.52 kg/m . Primary osteoarthritis of left knee 08/09/2015 08/16/2021 RAVIN (obstructive sleep apnea) 05/09/2013 Overview: CPAP @ 12 cm , AHI 22 , DME [facility] Last Assessment & Plan: Assessment: c/w cpap Plantar fasciitis, bilateral 08/06/2012 Breast density 01/25/2010 12/11/2016 Overview: Rt Breast- appt upcoming w/Dr. Vickers for Bx 03/04 Diarrhea 09/09/2008 12/11/2016 Anxiety state, unspecified 06/13 Last Assessment & Plan: She continues with paxil and maintains steady moods. Prior attempts at weaning down with return of low moods/sadness. Does well with therapy. Hemorrhage of gastrointestinal tract, unspecifie d 12/11/2016 Asthma 08/16/2021 documented as of this encounter (statuses as of 04/16/2022) [facility] History of Past illness Narrative* Problem Noted Date Resolved Date Other chest pain 03/15/2021 08/16/2021 Overview: NM cardiac perfusion stress test: Normal, no inducible ischemia or scarred myocardium. LV normal size, LVSF normal with ejection fraction 74%, RV size normal LV size, 06/05/2019 echocardiogram: LVSF NL, EF 64%, no ventricular wall motion abnormalities, no LVDD. RV size and RV SF normal, RVSP 37mmHg consistent with mild pulmonary hypertension. RA and LA normal size. MV 1+ MVR, trace TVI, 1+ TVR, AV mild thickening, gradient peak 7mmHg:, Trace PVR, mild ascending aortic dilation 3.2 cm Obesity, Class I, BMI 30-34.9 01/13/2018 Last Assessment & Plan: Assessment: Body mass index is 33.52 kg/m . Primary osteoarthritis of left knee 08/09/2015 08/16/2021 RAVIN (obstructive sleep apnea) 05/09/2013 Overview: CPAP @ 12 cm , AHI 22 , DME [facility] Last Assessment & Plan: Assessment: c/w cpap Plantar fasciitis, bilateral 08/06/2012 Breast density 01/25/2010 12/11/2016 Overview: Rt Breast- appt upcoming w/Dr. Vickers for Bx 03/04 Diarrhea 09/09/2008 12/11/2016 Anxiety state, unspecified 06/13 Last Assessment & Plan: She continues with paxil and maintains steady moods. Prior attempts at weaning down with return of low moods/sadness. Does well with therapy. Hemorrhage of gastrointestinal tract, unspecifie d 12/11/2016 Asthma 08/16/2021 documented as of this encounter (statuses as of 04/23/2022) [facility] History of Past illness Narrative* Problem Noted Date Resolved Date Other chest pain 03/15/2021 08/16/2021 Overview: NM cardiac perfusion stress test: Normal, no inducible ischemia or scarred myocardium. LV normal size, LVSF normal with ejection fraction 74%, RV size normal LV size, 06/05/2019 echocardiogram: LVSF NL, EF 64%, no ventricular wall motion abnormalities, no LVDD. RV size and RV SF normal, RVSP 37mmHg consistent with mild pulmonary hypertension. RA and LA normal size. MV 1+ MVR, trace TVI, 1+ TVR, AV mild thickening, gradient peak 7mmHg:, Trace PVR, mild ascending aortic dilation 3.2 cm Obesity, Class I, BMI 30-34.9 01/13/2018 Last Assessment & Plan: Assessment: Body mass index is 33.52 kg/m . Primary osteoarthritis of left knee 08/09/2015 08/16/2021 RAVIN (obstructive sleep apnea) 05/09/2013 Overview: CPAP @ 12 cm , AHI 22 , DME [facility] Last Assessment & Plan: Assessment: c/w cpap Plantar fasciitis, bilateral 08/06/2012 Breast density 01/25/2010 12/11/2016 Overview: Rt Breast- appt upcoming w/Dr. Vickers for Bx 03/04 Diarrhea 09/09/2008 12/11/2016 Anxiety state, unspecified 06/13 Last Assessment & Plan: She continues with paxil and maintains steady moods. Prior attempts at weaning down with return of low moods/sadness. Does well with therapy. Hemorrhage of gastrointestinal tract, unspecifie d 12/11/2016 Asthma 08/16/2021 documented as of this encounter (statuses as of 05/03/2022) [facility] History of Past illness Narrative* Problem Noted Date Resolved Date Other chest pain 03/15/2021 08/16/2021 Overview: NM cardiac perfusion stress test: Normal, no inducible ischemia or scarred myocardium. LV normal size, LVSF normal with ejection fraction 74%, RV size normal LV size, 06/05/2019 echocardiogram: LVSF NL, EF 64%, no ventricular wall motion abnormalities, no LVDD. RV size and RV SF normal, RVSP 37mmHg consistent with mild pulmonary hypertension. RA and LA normal size. MV 1+ MVR, trace TVI, 1+ TVR, AV mild thickening, gradient peak 7mmHg:, Trace PVR, mild ascending aortic dilation 3.2 cm Obesity, Class I, BMI 30-34.9 01/13/2018 Last Assessment & Plan: Assessment: Body mass index is 33.52 kg/m . Primary osteoarthritis of left knee 08/09/2015 08/16/2021 RAVIN (obstructive sleep apnea) 05/09/2013 Overview: CPAP @ 12 cm , AHI 22 , DME [facility] Last Assessment & Plan: Assessment: c/w cpap Plantar fasciitis, bilateral 08/06/2012 Breast density 01/25/2010 12/11/2016 Overview: Rt Breast- appt upcoming w/Dr. Vickers for Bx 03/04 Diarrhea 09/09/2008 12/11/2016 Anxiety state, unspecified 06/13 Last Assessment & Plan: She continues with paxil and maintains steady moods. Prior attempts at weaning down with return of low moods/sadness. Does well with therapy. Hemorrhage of gastrointestinal tract, unspecifie d 12/11/2016 Asthma 08/16/2021 documented as of this encounter (statuses as of 05/29/2022) [facility] History of Past illness Narrative* Problem Noted Date Resolved Date Other chest pain 03/15/2021 08/16/2021 Overview: NM cardiac perfusion stress test: Normal, no inducible ischemia or scarred myocardium. LV normal size, LVSF normal with ejection fraction 74%, RV size normal LV size, 06/05/2019 echocardiogram: LVSF NL, EF 64%, no ventricular wall motion abnormalities, no LVDD. RV size and RV SF normal, RVSP 37mmHg consistent with mild pulmonary hypertension. RA and LA normal size. MV 1+ MVR, trace TVI, 1+ TVR, AV mild thickening, gradient peak 7mmHg:, Trace PVR, mild ascending aortic dilation 3.2 cm Obesity, Class I, BMI 30-34.9 01/13/2018 Last Assessment & Plan: Assessment: Body mass index is 33.52 kg/m . Primary osteoarthritis of left knee 08/09/2015 08/16/2021 RAVIN (obstructive sleep apnea) 05/09/2013 Overview: CPAP @ 12 cm , AHI 22 , D[facility] Last Assessment & Plan: Assessment: c/w cpap Plantar fasciitis, bilateral 08/06/2012 Breast density 01/25/2010 12/11/2016 Overview: Rt Breast- appt upcoming w/Dr. Vickers for Bx 03/04 Diarrhea 09/09/2008 12/11/2016 Anxiety state, unspecified 06/13 Last Assessment & Plan: She continues with paxil and maintains steady moods. Prior attempts at weaning down with return of low moods/sadness. Does well with therapy. Hemorrhage of gastrointestinal tract, unspecifie d 12/11/2016 Asthma 08/16/2021 documented as of this encounter (statuses as of 06/16/2022) [facility] History of Past illness Narrative* Problem Noted Date Resolved Date Other chest pain 03/15/2021 08/16/2021 Overview: NM cardiac perfusion stress test: Normal, no inducible ischemia or scarred myocardium. LV normal size, LVSF normal with ejection fraction 74%, RV size normal LV size, 06/05/2019 echocardiogram: LVSF NL, EF 64%, no ventricular wall motion abnormalities, no LVDD. RV size and RV SF normal, RVSP 37mmHg consistent with mild pulmonary hypertension. RA and LA normal size. MV 1+ MVR, trace TVI, 1+ TVR, AV mild thickening, gradient peak 7mmHg:, Trace PVR, mild ascending aortic dilation 3.2 cm Obesity, Class I, BMI 30-34.9 01/13/2018 Last Assessment & Plan: Assessment: Body mass index is 33.52 kg/m . Primary osteoarthritis of left knee 08/09/2015 08/16/2021 RAVIN (obstructive sleep apnea) 05/09/2013 Overview: CPAP @ 12 cm , AHI 22 , D[facility] Last Assessment & Plan: Assessment: c/w cpap Plantar fasciitis, bilateral 08/06/2012 Breast density 01/25/2010 12/11/2016 Overview: Rt Breast- appt upcoming w/Dr. Vickers for Bx 03/04 Diarrhea 09/09/2008 12/11/2016 Anxiety state, unspecified 06/13 Last Assessment & Plan: She continues with paxil and maintains steady moods. Prior attempts at weaning down with return of low moods/sadness. Does well with therapy. Hemorrhage of gastrointestinal tract, unspecifie d 12/11/2016 Asthma 08/16/2021 documented as of this encounter (statuses as of 06/27/2022) [facility]07-21-2021 History of Past illness Narrative* Problem Noted Date Resolved Date Other chest pain 03/15/2021 08/16/2021 Overview: NM cardiac perfusion stress test: Normal, no inducible ischemia or scarred myocardium. LV normal size, LVSF normal with ejection fraction 74%, RV size normal LV size, 06/05/2019 echocardiogram: LVSF NL, EF 64%, no ventricular wall motion abnormalities, no LVDD. RV size and RV SF normal, RVSP 37mmHg consistent with mild pulmonary hypertension. RA and LA normal size. MV 1+ MVR, trace TVI, 1+ TVR, AV mild thickening, gradient peak 7mmHg:, Trace PVR, mild ascending aortic dilation 3.2 cm Obesity, Class I, BMI 30-34.9 01/13/2018 Last Assessment & Plan: Assessment: Body mass index is 33.52 kg/m . Primary osteoarthritis of left knee 08/09/2015 08/16/2021 RAVIN (obstructive sleep apnea) 05/09/2013 Overview: CPAP @ 12 cm , AHI 22 , DME Floyd Monalh Last Assessment & Plan: Assessment: c/w cpap Plantar fasciitis, bilateral 08/06/2012 Breast density 01/25/2010 12/11/2016 Overview: Rt Breast- appt upcoming w/Dr. Vickers for Bx 03/04 Diarrhea 09/09/2008 12/11/2016 Anxiety state, unspecified 06/13 Last Assessment & Plan: She continues with paxil and maintains steady moods. Prior attempts at weaning down with return of low moods/sadness. Does well with therapy. Hemorrhage of gastrointestinal tract, unspecifie d 12/11/2016 Asthma 08/16/2021 documented as of this encounter (statuses as of 07/04/2022) [facility]21 History of Past illness Narrative* Problem Noted Date Resolved Date Other chest pain 03/15/2021 08/16/2021 Overview: NM cardiac perfusion stress test: Normal, no inducible ischemia or scarred myocardium. LV normal size, LVSF normal with ejection fraction 74%, RV size normal LV size, 06/05/2019 echocardiogram: LVSF NL, EF 64%, no ventricular wall motion abnormalities, no LVDD. RV size and RV SF normal, RVSP 37mmHg consistent with mild pulmonary hypertension. RA and LA normal size. MV 1+ MVR, trace TVI, 1+ TVR, AV mild thickening, gradient peak 7mmHg:, Trace PVR, mild ascending aortic dilation 3.2 cm Obesity, Class I, BMI 30-34.9 01/13/2018 Last Assessment & Plan: Assessment: Body mass index is 33.52 kg/m . Primary osteoarthritis of left knee 08/09/2015 08/16/2021 RAVIN (obstructive sleep apnea) 05/09/2013 Overview: CPAP @ 12 cm , AHI 22 , DME [facility] Monalh Last Assessment & Plan: Assessment: c/w cpap Plantar fasciitis, bilateral 08/06/2012 Breast density 01/25/2010 12/11/2016 Overview: Rt Breast- appt upcoming w/Dr. Vickers for Bx 03/04 Diarrhea 09/09/2008 12/11/2016 Anxiety state, unspecified 06/13 Last Assessment & Plan: She continues with paxil and maintains steady moods. Prior attempts at weaning down with return of low moods/sadness. Does well with therapy. Hemorrhage of gastrointestinal tract, unspecifie d 12/11/2016 Asthma 08/16/2021 documented as of this encounter (statuses as of 07/05/2022) [facility] History of Past illness Narrative* Problem Noted Date Resolved Date Other chest pain 03/15/2021 08/16/2021 Overview: NM cardiac perfusion stress test: Normal, no inducible ischemia or scarred myocardium. LV normal size, LVSF normal with ejection fraction 74%, RV size normal LV size, 06/05/2019 echocardiogram: LVSF NL, EF 64%, no ventricular wall motion abnormalities, no LVDD. RV size and RV SF normal, RVSP 37mmHg consistent with mild pulmonary hypertension. RA and LA normal size. MV 1+ MVR, trace TVI, 1+ TVR, AV mild thickening, gradient peak 7mmHg:, Trace PVR, mild ascending aortic dilation 3.2 cm Obesity, Class I, BMI 30-34.9 01/13/2018 Last Assessment & Plan: Assessment: Body mass index is 33.52 kg/m . Primary osteoarthritis of left knee 08/09/2015 08/16/2021 RAVIN (obstructive sleep apnea) 05/09/2013 Overview: CPAP @ 12 cm , AHI 22 , DME [facility] Last Assessment & Plan: Assessment: c/w cpap Plantar fasciitis, bilateral 08/06/2012 Breast density 01/25/2010 12/11/2016 Overview: Rt Breast- appt upcoming w/Dr. Vickers for Bx 03/04 Diarrhea 09/09/2008 12/11/2016 Anxiety state, unspecified 06/13 Last Assessment & Plan: She continues with paxil and maintains steady moods. Prior attempts at weaning down with return of low moods/sadness. Does well with therapy. Hemorrhage of gastrointestinal tract, unspecifie d 12/11/2016 Asthma 08/16/2021 documented as of this encounter (statuses as of 07/05/2022) [facility] History of Past illness Narrative* Problem Noted Date Resolved Date Other chest pain 03/15/2021 08/16/2021 Overview: NM cardiac perfusion stress test: Normal, no inducible ischemia or scarred myocardium. LV normal size, LVSF normal with ejection fraction 74%, RV size normal LV size, 06/05/2019 echocardiogram: LVSF NL, EF 64%, no ventricular wall motion abnormalities, no LVDD. RV size and RV SF normal, RVSP 37mmHg consistent with mild pulmonary hypertension. RA and LA normal size. MV 1+ MVR, trace TVI, 1+ TVR, AV mild thickening, gradient peak 7mmHg:, Trace PVR, mild ascending aortic dilation 3.2 cm Obesity, Class I, BMI 30-34.9 01/13/2018 Last Assessment & Plan: Assessment: Body mass index is 33.52 kg/m . Primary osteoarthritis of left knee 08/09/2015 08/16/2021 RAVIN (obstructive sleep apnea) 05/09/2013 Overview: CPAP @ 12 cm , AHI 22 , DME [facility] Last Assessment & Plan: Assessment: c/w cpap Plantar fasciitis, bilateral 08/06/2012 Breast density 01/25/2010 12/11/2016 Overview: Rt Breast- appt upcoming w/Dr. Vickers for Bx 03/04 Diarrhea 09/09/2008 12/11/2016 Anxiety state, unspecified 06/13 Last Assessment & Plan: She continues with paxil and maintains steady moods. Prior attempts at weaning down with return of low moods/sadness. Does well with therapy. Hemorrhage of gastrointestinal tract, unspecifie d 12/11/2016 Asthma 08/16/2021 documented as of this encounter (statuses as of 07/05/2022) [facility] History of Past illness Narrative* Problem Noted Date Resolved Date Other chest pain 03/15/2021 08/16/2021 Overview: NM cardiac perfusion stress test: Normal, no inducible ischemia or scarred myocardium. LV normal size, LVSF normal with ejection fraction 74%, RV size normal LV size, 06/05/2019 echocardiogram: LVSF NL, EF 64%, no ventricular wall motion abnormalities, no LVDD. RV size and RV SF normal, RVSP 37mmHg consistent with mild pulmonary hypertension. RA and LA normal size. MV 1+ MVR, trace TVI, 1+ TVR, AV mild thickening, gradient peak 7mmHg:, Trace PVR, mild ascending aortic dilation 3.2 cm Obesity, Class I, BMI 30-34.9 01/13/2018 Last Assessment & Plan: Assessment: Body mass index is 33.52 kg/m . Primary osteoarthritis of left knee 08/09/2015 08/16/2021 RAVIN (obstructive sleep apnea) 05/09/2013 Overview: CPAP @ 12 cm , AHI 22 , DME [facility] Last Assessment & Plan: Assessment: c/w cpap Plantar fasciitis, bilateral 08/06/2012 Breast density 01/25/2010 12/11/2016 Overview: Rt Breast- appt upcoming w/Dr. Vickers for Bx 03/04 Diarrhea 09/09/2008 12/11/2016 Anxiety state, unspecified 06/13 Last Assessment & Plan: She continues with paxil and maintains steady moods. Prior attempts at weaning down with return of low moods/sadness. Does well with therapy. Hemorrhage of gastrointestinal tract, unspecifie d 12/11/2016 Asthma 08/16/2021 documented as of this encounter (statuses as of 07/10/2022) [facility] History of Past illness Narrative* Problem Noted Date Resolved Date Other chest pain 03/15/2021 08/16/2021 Overview: NM cardiac perfusion stress test: Normal, no inducible ischemia or scarred myocardium. LV normal size, LVSF normal with ejection fraction 74%, RV size normal LV size, 06/05/2019 echocardiogram: LVSF NL, EF 64%, no ventricular wall motion abnormalities, no LVDD. RV size and RV SF normal, RVSP 37mmHg consistent with mild pulmonary hypertension. RA and LA normal size. MV 1+ MVR, trace TVI, 1+ TVR, AV mild thickening, gradient peak 7mmHg:, Trace PVR, mild ascending aortic dilation 3.2 cm Obesity, Class I, BMI 30-34.9 01/13/2018 Last Assessment & Plan: Assessment: Body mass index is 33.52 kg/m . Primary osteoarthritis of left knee 08/09/2015 08/16/2021 RAVIN (obstructive sleep apnea) 05/09/2013 Overview: CPAP @ 12 cm , AHI 22 , DME [facility] Last Assessment & Plan: Assessment: c/w cpap Plantar fasciitis, bilateral 08/06/2012 Breast density 01/25/2010 12/11/2016 Overview: Rt Breast- appt upcoming w/Dr. Vickers for Bx 03/04 Diarrhea 09/09/2008 12/11/2016 Anxiety state, unspecified 06/13 Last Assessment & Plan: She continues with paxil and maintains steady moods. Prior attempts at weaning down with return of low moods/sadness. Does well with therapy. Hemorrhage of gastrointestinal tract, unspecifie d 12/11/2016 Asthma 08/16/2021 documented as of this encounter (statuses as of 08/07/2022) [facility] History of Past illness Narrative* Problem Noted Date Resolved Date Other chest pain 03/15/2021 08/16/2021 Overview: NM cardiac perfusion stress test: Normal, no inducible ischemia or scarred myocardium. LV normal size, LVSF normal with ejection fraction 74%, RV size normal LV size, 06/05/2019 echocardiogram: LVSF NL, EF 64%, no ventricular wall motion abnormalities, no LVDD. RV size and RV SF normal, RVSP 37mmHg consistent with mild pulmonary hypertension. RA and LA normal size. MV 1+ MVR, trace TVI, 1+ TVR, AV mild thickening, gradient peak 7mmHg:, Trace PVR, mild ascending aortic dilation 3.2 cm Obesity, Class I, BMI 30-34.9 01/13/2018 Last Assessment & Plan: Assessment: Body mass index is 33.52 kg/m . Primary osteoarthritis of left knee 08/09/2015 08/16/2021 RAVIN (obstructive sleep apnea) 05/09/2013 Overview: CPAP @ 12 cm , AHI 22 , DME Floyd Quinones Last Assessment & Plan: Assessment: c/w cpap Plantar fasciitis, bilateral 08/06/2012 Breast density 01/25/2010 12/11/2016 Overview: Rt Breast- appt upcoming w/Dr. Vickers for Bx 03/04 Diarrhea 09/09/2008 12/11/2016 Anxiety state, unspecified 06/13 Last Assessment & Plan: She continues with paxil and maintains steady moods. Prior attempts at weaning down with return of low moods/sadness. Does well with therapy. Hemorrhage of gastrointestinal tract, unspecifie d 12/11/2016 Asthma 08/16/2021 documented as of this encounter (statuses as of 08/09/2022) [facility] History of Past illness Narrative* Problem Noted Date Resolved Date Other chest pain 03/15/2021 08/16/2021 Overview: NM cardiac perfusion stress test: Normal, no inducible ischemia or scarred myocardium. LV normal size, LVSF normal with ejection fraction 74%, RV size normal LV size, 06/05/2019 echocardiogram: LVSF NL, EF 64%, no ventricular wall motion abnormalities, no LVDD. RV size and RV SF normal, RVSP 37mmHg consistent with mild pulmonary hypertension. RA and LA normal size. MV 1+ MVR, trace TVI, 1+ TVR, AV mild thickening, gradient peak 7mmHg:, Trace PVR, mild ascending aortic dilation 3.2 cm Obesity, Class I, BMI 30-34.9 01/13/2018 Last Assessment & Plan: Assessment: Body mass index is 33.52 kg/m . Primary osteoarthritis of left knee 08/09/2015 08/16/2021 RAVIN (obstructive sleep apnea) 05/09/2013 Overview: CPAP @ 12 cm , AHI 22 , DME Floyd Quinones Last Assessment & Plan: Assessment: c/w cpap Plantar fasciitis, bilateral 08/06/2012 Breast density 01/25/2010 12/11/2016 Overview: Rt Breast- appt upcoming w/Dr. Vickers for Bx 03/04 Diarrhea 09/09/2008 12/11/2016 Anxiety state, unspecified 06/13 Last Assessment & Plan: She continues with paxil and maintains steady moods. Prior attempts at weaning down with return of low moods/sadness. Does well with therapy. Hemorrhage of gastrointestinal tract, unspecifie d 12/11/2016 Asthma 08/16/2021 documented as of this encounter (statuses as of 08/10/2022) [facility] History of Past illness Narrative* Problem Noted Date Resolved Date Other chest pain 03/15/2021 08/16/2021 Overview: NM cardiac perfusion stress test: Normal, no inducible ischemia or scarred myocardium. LV normal size, LVSF normal with ejection fraction 74%, RV size normal LV size, 06/05/2019 echocardiogram: LVSF NL, EF 64%, no ventricular wall motion abnormalities, no LVDD. RV size and RV SF normal, RVSP 37mmHg consistent with mild pulmonary hypertension. RA and LA normal size. MV 1+ MVR, trace TVI, 1+ TVR, AV mild thickening, gradient peak 7mmHg:, Trace PVR, mild ascending aortic dilation 3.2 cm Obesity, Class I, BMI 30-34.9 01/13/2018 Last Assessment & Plan: Assessment: Body mass index is 33.52 kg/m . Primary osteoarthritis of left knee 08/09/2015 08/16/2021 RAVIN (obstructive sleep apnea) 05/09/2013 Overview: CPAP @ 12 cm , AHI 22 , DME Floydshi Amatoh Last Assessment & Plan: Assessment: c/w cpap Plantar fasciitis, bilateral 08/06/2012 Breast density 01/25/2010 12/11/2016 Overview: Rt Breast- appt upcoming w/Dr. Vickers for Bx 03/04 Diarrhea 09/09/2008 12/11/2016 Anxiety state, unspecified 06/13 Last Assessment & Plan: She continues with paxil and maintains steady moods. Prior attempts at weaning down with return of low moods/sadness. Does well with therapy. Hemorrhage of gastrointestinal tract, unspecifie d 12/11/2016 Asthma 08/16/2021 documented as of this encounter (statuses as of 08/14/2022) [facility] History of Past illness Narrative* Problem Noted Date Resolved Date Other chest pain 03/15/2021 08/16/2021 Overview: NM cardiac perfusion stress test: Normal, no inducible ischemia or scarred myocardium. LV normal size, LVSF normal with ejection fraction 74%, RV size normal LV size, 06/05/2019 echocardiogram: LVSF NL, EF 64%, no ventricular wall motion abnormalities, no LVDD. RV size and RV SF normal, RVSP 37mmHg consistent with mild pulmonary hypertension. RA and LA normal size. MV 1+ MVR, trace TVI, 1+ TVR, AV mild thickening, gradient peak 7mmHg:, Trace PVR, mild ascending aortic dilation 3.2 cm Obesity, Class I, BMI 30-34.9 01/13/2018 Last Assessment & Plan: Assessment: Body mass index is 33.52 kg/m . Primary osteoarthritis of left knee 08/09/2015 08/16/2021 RAVIN (obstructive sleep apnea) 05/09/2013 Overview: CPAP @ 12 cm , AHI 22 , DME Floyd Quinones Last Assessment & Plan: Assessment: c/w cpap Plantar fasciitis, bilateral 08/06/2012 Breast density 01/25/2010 12/11/2016 Overview: Rt Breast- appt upcoming w/Dr. Vickers for Bx 03/04 Diarrhea 09/09/2008 12/11/2016 Anxiety state, unspecified 06/13 Last Assessment & Plan: She continues with paxil and maintains steady moods. Prior attempts at weaning down with return of low moods/sadness. Does well with therapy. Hemorrhage of gastrointestinal tract, unspecifie d 12/11/2016 Asthma 08/16/2021 documented as of this encounter (statuses as of 08/15/2022) [facility] History of Past illness Narrative* Problem Noted Date Resolved Date Other chest pain 03/15/2021 08/16/2021 Overview: NM cardiac perfusion stress test: Normal, no inducible ischemia or scarred myocardium. LV normal size, LVSF normal with ejection fraction 74%, RV size normal LV size, 06/05/2019 echocardiogram: LVSF NL, EF 64%, no ventricular wall motion abnormalities, no LVDD. RV size and RV SF normal, RVSP 37mmHg consistent with mild pulmonary hypertension. RA and LA normal size. MV 1+ MVR, trace TVI, 1+ TVR, AV mild thickening, gradient peak 7mmHg:, Trace PVR, mild ascending aortic dilation 3.2 cm Obesity, Class I, BMI 30-34.9 01/13/2018 Last Assessment & Plan: Assessment: Body mass index is 33.52 kg/m . Primary osteoarthritis of left knee 08/09/2015 08/16/2021 RAVIN (obstructive sleep apnea) 05/09/2013 Overview: CPAP @ 12 cm , AHI 22 , DME Floyd Amato Last Assessment & Plan: Assessment: c/w cpap Plantar fasciitis, bilateral 08/06/2012 Breast density 01/25/2010 12/11/2016 Overview: Rt Breast- appt upcoming w/Dr. Vickers for Bx 03/04 Diarrhea 09/09/2008 12/11/2016 Anxiety state, unspecified 06/13 Last Assessment & Plan: She continues with paxil and maintains steady moods. Prior attempts at weaning down with return of low moods/sadness. Does well with therapy. Hemorrhage of gastrointestinal tract, unspecifie d 12/11/2016 Asthma 08/16/2021 documented as of this encounter (statuses as of 08/17/2022) [facility] History of Past illness Narrative* Problem Noted Date Resolved Date Other chest pain 03/15/2021 08/16/2021 Overview: NM cardiac perfusion stress test: Normal, no inducible ischemia or scarred myocardium. LV normal size, LVSF normal with ejection fraction 74%, RV size normal LV size, 06/05/2019 echocardiogram: LVSF NL, EF 64%, no ventricular wall motion abnormalities, no LVDD. RV size and RV SF normal, RVSP 37mmHg consistent with mild pulmonary hypertension. RA and LA normal size. MV 1+ MVR, trace TVI, 1+ TVR, AV mild thickening, gradient peak 7mmHg:, Trace PVR, mild ascending aortic dilation 3.2 cm Obesity, Class I, BMI 30-34.9 01/13/2018 Last Assessment & Plan: Assessment: Body mass index is 33.52 kg/m . Primary osteoarthritis of left knee 08/09/2015 08/16/2021 RAVIN (obstructive sleep apnea) 05/09/2013 Overview: CPAP @ 12 cm , AHI 22 , DME [facility] Last Assessment & Plan: Assessment: c/w cpap Plantar fasciitis, bilateral 08/06/2012 Breast density 01/25/2010 12/11/2016 Overview: Rt Breast- appt upcoming w/Dr. Vickers for Bx 03/04 Diarrhea 09/09/2008 12/11/2016 Anxiety state, unspecified 06/13 Last Assessment & Plan: She continues with paxil and maintains steady moods. Prior attempts at weaning down with return of low moods/sadness. Does well with therapy. Hemorrhage of gastrointestinal tract, unspecifie d 12/11/2016 Asthma 08/16/2021 documented as of this encounter (statuses as of 08/27/2022) [facility] History of Past illness Narrative* Problem Noted Date Resolved Date Other chest pain 03/15/2021 08/16/2021 Overview: NM cardiac perfusion stress test: Normal, no inducible ischemia or scarred myocardium. LV normal size, LVSF normal with ejection fraction 74%, RV size normal LV size, 06/05/2019 echocardiogram: LVSF NL, EF 64%, no ventricular wall motion abnormalities, no LVDD. RV size and RV SF normal, RVSP 37mmHg consistent with mild pulmonary hypertension. RA and LA normal size. MV 1+ MVR, trace TVI, 1+ TVR, AV mild thickening, gradient peak 7mmHg:, Trace PVR, mild ascending aortic dilation 3.2 cm Obesity, Class I, BMI 30-34.9 01/13/2018 Last Assessment & Plan: Assessment: Body mass index is 33.52 kg/m . Primary osteoarthritis of left knee 08/09/2015 08/16/2021 RAVIN (obstructive sleep apnea) 05/09/2013 Overview: CPAP @ 12 cm , AHI 22 , DME [facility] Last Assessment & Plan: Assessment: c/w cpap Plantar fasciitis, bilateral 08/06/2012 Breast density 01/25/2010 12/11/2016 Overview: Rt Breast- appt upcoming w/Dr. Vickers for Bx 03/04 Diarrhea 09/09/2008 12/11/2016 Anxiety state, unspecified 06/13 Last Assessment & Plan: She continues with paxil and maintains steady moods. Prior attempts at weaning down with return of low moods/sadness. Does well with therapy. Hemorrhage of gastrointestinal tract, unspecifie d 12/11/2016 Asthma 08/16/2021 documented as of this encounter (statuses as of 08/29/2022) [facility] History of Past illness Narrative* Problem Noted Date Resolved Date Other chest pain 03/15/2021 08/16/2021 Overview: NM cardiac perfusion stress test: Normal, no inducible ischemia or scarred myocardium. LV normal size, LVSF normal with ejection fraction 74%, RV size normal LV size, 06/05/2019 echocardiogram: LVSF NL, EF 64%, no ventricular wall motion abnormalities, no LVDD. RV size and RV SF normal, RVSP 37mmHg consistent with mild pulmonary hypertension. RA and LA normal size. MV 1+ MVR, trace TVI, 1+ TVR, AV mild thickening, gradient peak 7mmHg:, Trace PVR, mild ascending aortic dilation 3.2 cm Obesity, Class I, BMI 30-34.9 01/13/2018 Last Assessment & Plan: Assessment: Body mass index is 33.52 kg/m . Primary osteoarthritis of left knee 08/09/2015 08/16/2021 RAVIN (obstructive sleep apnea) 05/09/2013 Overview: CPAP @ 12 cm , AHI 22 , DME [facility] Last Assessment & Plan: Assessment: c/w cpap Plantar fasciitis, bilateral 08/06/2012 Breast density 01/25/2010 12/11/2016 Overview: Rt Breast- appt upcoming w/Dr. Vickers for Bx 03/04 Diarrhea 09/09/2008 12/11/2016 Anxiety state, unspecified 06/13 Last Assessment & Plan: She continues with paxil and maintains steady moods. Prior attempts at weaning down with return of low moods/sadness. Does well with therapy. Hemorrhage of gastrointestinal tract, unspecifie d 12/11/2016 Asthma 08/16/2021 documented as of this encounter (statuses as of 09/13/2022) [facility] History of Past illness Narrative* Problem Noted Date Resolved Date Other chest pain 03/15/2021 08/16/2021 Overview: NM cardiac perfusion stress test: Normal, no inducible ischemia or scarred myocardium. LV normal size, LVSF normal with ejection fraction 74%, RV size normal LV size, 06/05/2019 echocardiogram: LVSF NL, EF 64%, no ventricular wall motion abnormalities, no LVDD. RV size and RV SF normal, RVSP 37mmHg consistent with mild pulmonary hypertension. RA and LA normal size. MV 1+ MVR, trace TVI, 1+ TVR, AV mild thickening, gradient peak 7mmHg:, Trace PVR, mild ascending aortic dilation 3.2 cm Obesity, Class I, BMI 30-34.9 01/13/2018 Last Assessment & Plan: Assessment: Body mass index is 33.52 kg/m . Primary osteoarthritis of left knee 08/09/2015 08/16/2021 RAVIN (obstructive sleep apnea) 05/09/2013 Overview: CPAP @ 12 cm , AHI 22 , DME [facility] Last Assessment & Plan: Assessment: c/w cpap Plantar fasciitis, bilateral 08/06/2012 Breast density 01/25/2010 12/11/2016 Overview: Rt Breast- appt upcoming w/Dr. Vickers for Bx 03/04 Diarrhea 09/09/2008 12/11/2016 Anxiety state, unspecified 06/13 Last Assessment & Plan: She continues with paxil and maintains steady moods. Prior attempts at weaning down with return of low moods/sadness. Does well with therapy. Hemorrhage of gastrointestinal tract, unspecifie d 12/11/2016 Asthma 08/16/2021 documented as of this encounter (statuses as of 09/18/2022) [facility] History of Past illness Narrative* Problem Noted Date Resolved Date Other chest pain 03/15/2021 08/16/2021 Overview: NM cardiac perfusion stress test: Normal, no inducible ischemia or scarred myocardium. LV normal size, LVSF normal with ejection fraction 74%, RV size normal LV size, 06/05/2019 echocardiogram: LVSF NL, EF 64%, no ventricular wall motion abnormalities, no LVDD. RV size and RV SF normal, RVSP 37mmHg consistent with mild pulmonary hypertension. RA and LA normal size. MV 1+ MVR, trace TVI, 1+ TVR, AV mild thickening, gradient peak 7mmHg:, Trace PVR, mild ascending aortic dilation 3.2 cm Obesity, Class I, BMI 30-34.9 01/13/2018 Last Assessment & Plan: Assessment: Body mass index is 33.52 kg/m . Primary osteoarthritis of left knee 08/09/2015 08/16/2021 RAVIN (obstructive sleep apnea) 05/09/2013 Overview: CPAP @ 12 cm , AHI 22 , DME [facility] Last Assessment & Plan: Assessment: c/w cpap Plantar fasciitis, bilateral 08/06/2012 Breast density 01/25/2010 12/11/2016 Overview: Rt Breast- appt upcoming w/Dr. Vickers for Bx 03/04 Diarrhea 09/09/2008 12/11/2016 Anxiety state, unspecified 06/13 Last Assessment & Plan: She continues with paxil and maintains steady moods. Prior attempts at weaning down with return of low moods/sadness. Does well with therapy. Hemorrhage of gastrointestinal tract, unspecifie d 12/11/2016 Asthma 08/16/2021 documented as of this encounter (statuses as of 09/24/2022) [facility]07-21-2021 History of Past illness Narrative* Problem Noted Date Resolved Date Other chest pain 03/15/2021 08/16/2021 Overview: NM cardiac perfusion stress test: Normal, no inducible ischemia or scarred myocardium. LV normal size, LVSF normal with ejection fraction 74%, RV size normal LV size, 06/05/2019 echocardiogram: LVSF NL, EF 64%, no ventricular wall motion abnormalities, no LVDD. RV size and RV SF normal, RVSP 37mmHg consistent with mild pulmonary hypertension. RA and LA normal size. MV 1+ MVR, trace TVI, 1+ TVR, AV mild thickening, gradient peak 7mmHg:, Trace PVR, mild ascending aortic dilation 3.2 cm Obesity, Class I, BMI 30-34.9 01/13/2018 Last Assessment & Plan: Assessment: Body mass index is 33.52 kg/m . Primary osteoarthritis of left knee 08/09/2015 08/16/2021 RAVIN (obstructive sleep apnea) 05/09/2013 Overview: CPAP @ 12 cm , AHI 22 , [facility] Last Assessment & Plan: Assessment: c/w cpap Plantar fasciitis, bilateral 08/06/2012 Breast density 01/25/2010 12/11/2016 Overview: Rt Breast- appt upcoming w/Dr. Vickers for Bx 03/04 Diarrhea 09/09/2008 12/11/2016 Anxiety state, unspecified 06/13 Last Assessment & Plan: She continues with paxil and maintains steady moods. Prior attempts at weaning down with return of low moods/sadness. Does well with therapy. Hemorrhage of gastrointestinal tract, unspecifie d 12/11/2016 Asthma 08/16/2021 documented as of this encounter (statuses as of 09/25/2022) [facility]07-21-2021 History of Past illness Narrative* Problem Noted Date Resolved Date Other chest pain 03/15/2021 08/16/2021 Overview: NM cardiac perfusion stress test: Normal, no inducible ischemia or scarred myocardium. LV normal size, LVSF normal with ejection fraction 74%, RV size normal LV size, 06/05/2019 echocardiogram: LVSF NL, EF 64%, no ventricular wall motion abnormalities, no LVDD. RV size and RV SF normal, RVSP 37mmHg consistent with mild pulmonary hypertension. RA and LA normal size. MV 1+ MVR, trace TVI, 1+ TVR, AV mild thickening, gradient peak 7mmHg:, Trace PVR, mild ascending aortic dilation 3.2 cm Obesity, Class I, BMI 30-34.9 01/13/2018 Last Assessment & Plan: Assessment: Body mass index is 33.52 kg/m . Primary osteoarthritis of left knee 08/09/2015 08/16/2021 RAVIN (obstructive sleep apnea) 05/09/2013 Overview: CPAP @ 12 cm , AHI 22 , [facility] Last Assessment & Plan: Assessment: c/w cpap Plantar fasciitis, bilateral 08/06/2012 Breast density 01/25/2010 12/11/2016 Overview: Rt Breast- appt upcoming w/Dr. Vickers for Bx 03/04 Diarrhea 09/09/2008 12/11/2016 Anxiety state, unspecified 06/13 Last Assessment & Plan: She continues with paxil and maintains steady moods. Prior attempts at weaning down with return of low moods/sadness. Does well with therapy. Hemorrhage of gastrointestinal tract, unspecifie d 12/11/2016 Asthma 08/16/2021 documented as of this encounter (statuses as of 09/25/2022) [facility]2021 History of Past illness Narrative* Problem Noted Date Resolved Date Other chest pain 03/15/2021 08/16/2021 Overview: NM cardiac perfusion stress test: Normal, no inducible ischemia or scarred myocardium. LV normal size, LVSF normal with ejection fraction 74%, RV size normal LV size, 06/05/2019 echocardiogram: LVSF NL, EF 64%, no ventricular wall motion abnormalities, no LVDD. RV size and RV SF normal, RVSP 37mmHg consistent with mild pulmonary hypertension. RA and LA normal size. MV 1+ MVR, trace TVI, 1+ TVR, AV mild thickening, gradient peak 7mmHg:, Trace PVR, mild ascending aortic dilation 3.2 cm Obesity, Class I, BMI 30-34.9 01/13/2018 Last Assessment & Plan: Assessment: Body mass index is 33.52 kg/m . Primary osteoarthritis of left knee 08/09/2015 08/16/2021 RAVIN (obstructive sleep apnea) 05/09/2013 Overview: CPAP @ 12 cm , AHI 22 , [facility] Last Assessment & Plan: Assessment: c/w cpap Plantar fasciitis, bilateral 08/06/2012 Breast density 01/25/2010 12/11/2016 Overview: Rt Breast- appt upcoming w/Dr. Vickers for Bx 03/04 Diarrhea 09/09/2008 12/11/2016 Anxiety state, unspecified 06/13 Last Assessment & Plan: She continues with paxil and maintains steady moods. Prior attempts at weaning down with return of low moods/sadness. Does well with therapy. Hemorrhage of gastrointestinal tract, unspecifie d 12/11/2016 Asthma 08/16/2021 documented as of this encounter (statuses as of 09/27/2022) [facility]2021 History of Past illness Narrative* Problem Noted Date Resolved Date Other chest pain 03/15/2021 08/16/2021 Overview: NM cardiac perfusion stress test: Normal, no inducible ischemia or scarred myocardium. LV normal size, LVSF normal with ejection fraction 74%, RV size normal LV size, 06/05/2019 echocardiogram: LVSF NL, EF 64%, no ventricular wall motion abnormalities, no LVDD. RV size and RV SF normal, RVSP 37mmHg consistent with mild pulmonary hypertension. RA and LA normal size. MV 1+ MVR, trace TVI, 1+ TVR, AV mild thickening, gradient peak 7mmHg:, Trace PVR, mild ascending aortic dilation 3.2 cm Obesity, Class I, BMI 30-34.9 01/13/2018 Last Assessment & Plan: Assessment: Body mass index is 33.52 kg/m . Primary osteoarthritis of left knee 08/09/2015 08/16/2021 RAVIN (obstructive sleep apnea) 05/09/2013 Overview: CPAP @ 12 cm , AHI 22 , DME [facility] Last Assessment & Plan: Assessment: c/w cpap Plantar fasciitis, bilateral 08/06/2012 Breast density 01/25/2010 12/11/2016 Overview: Rt Breast- appt upcoming w/Dr. Vickers for Bx 03/04 Diarrhea 09/09/2008 12/11/2016 Anxiety state, unspecified 06/13 Last Assessment & Plan: She continues with paxil and maintains steady moods. Prior attempts at weaning down with return of low moods/sadness. Does well with therapy. Hemorrhage of gastrointestinal tract, unspecifie d 12/11/2016 Asthma 08/16/2021 documented as of this encounter (statuses as of 10/01/2022) [facility]2021 History of Past illness Narrative* Problem Noted Date Resolved Date Other chest pain 03/15/2021 08/16/2021 Overview: NM cardiac perfusion stress test: Normal, no inducible ischemia or scarred myocardium. LV normal size, LVSF normal with ejection fraction 74%, RV size normal LV size, 06/05/2019 echocardiogram: LVSF NL, EF 64%, no ventricular wall motion abnormalities, no LVDD. RV size and RV SF normal, RVSP 37mmHg consistent with mild pulmonary hypertension. RA and LA normal size. MV 1+ MVR, trace TVI, 1+ TVR, AV mild thickening, gradient peak 7mmHg:, Trace PVR, mild ascending aortic dilation 3.2 cm Obesity, Class I, BMI 30-34.9 01/13/2018 Last Assessment & Plan: Assessment: Body mass index is 33.52 kg/m . Primary osteoarthritis of left knee 08/09/2015 08/16/2021 RAVIN (obstructive sleep apnea) 05/09/2013 Overview: CPAP @ 12 cm , AHI 22 , DME [facility] Last Assessment & Plan: Assessment: c/w cpap Plantar fasciitis, bilateral 08/06/2012 Breast density 01/25/2010 12/11/2016 Overview: Rt Breast- appt upcoming w/Dr. Vickers for Bx 03/04 Diarrhea 09/09/2008 12/11/2016 Anxiety state, unspecified 06/13 Last Assessment & Plan: She continues with paxil and maintains steady moods. Prior attempts at weaning down with return of low moods/sadness. Does well with therapy. Hemorrhage of gastrointestinal tract, unspecifie d 12/11/2016 Asthma 08/16/2021 documented as of this encounter (statuses as of 10/03/2022) [facility]2021 History of Past illness Narrative* Problem Noted Date Resolved Date Other chest pain 03/15/2021 08/16/2021 Overview: NM cardiac perfusion stress test: Normal, no inducible ischemia or scarred myocardium. LV normal size, LVSF normal with ejection fraction 74%, RV size normal LV size, 06/05/2019 echocardiogram: LVSF NL, EF 64%, no ventricular wall motion abnormalities, no LVDD. RV size and RV SF normal, RVSP 37mmHg consistent with mild pulmonary hypertension. RA and LA normal size. MV 1+ MVR, trace TVI, 1+ TVR, AV mild thickening, gradient peak 7mmHg:, Trace PVR, mild ascending aortic dilation 3.2 cm Obesity, Class I, BMI 30-34.9 01/13/2018 Last Assessment & Plan: Assessment: Body mass index is 33.52 kg/m . Primary osteoarthritis of left knee 08/09/2015 08/16/2021 RAVIN (obstructive sleep apnea) 05/09/2013 Overview: CPAP @ 12 cm , AHI 22 , DME [facility] Last Assessment & Plan: Assessment: c/w cpap Plantar fasciitis, bilateral 08/06/2012 Breast density 01/25/2010 12/11/2016 Overview: Rt Breast- appt upcoming w/Dr. Vickers for Bx 03/04 Diarrhea 09/09/2008 12/11/2016 Anxiety state, unspecified 06/13 Last Assessment & Plan: She continues with paxil and maintains steady moods. Prior attempts at weaning down with return of low moods/sadness. Does well with therapy. Hemorrhage of gastrointestinal tract, unspecifie d 12/11/2016 Asthma 08/16/2021 documented as of this encounter (statuses as of 10/09/2022) [facility]2021 History of Past illness Narrative* Problem Noted Date Resolved Date Other chest pain 03/15/2021 08/16/2021 Overview: NM cardiac perfusion stress test: Normal, no inducible ischemia or scarred myocardium. LV normal size, LVSF normal with ejection fraction 74%, RV size normal LV size, 06/05/2019 echocardiogram: LVSF NL, EF 64%, no ventricular wall motion abnormalities, no LVDD. RV size and RV SF normal, RVSP 37mmHg consistent with mild pulmonary hypertension. RA and LA normal size. MV 1+ MVR, trace TVI, 1+ TVR, AV mild thickening, gradient peak 7mmHg:, Trace PVR, mild ascending aortic dilation 3.2 cm Obesity, Class I, BMI 30-34.9 01/13/2018 Last Assessment & Plan: Assessment: Body mass index is 33.52 kg/m . Primary osteoarthritis of left knee 08/09/2015 08/16/2021 RAVIN (obstructive sleep apnea) 05/09/2013 Overview: CPAP @ 12 cm , AHI 22 , DME [facility] Last Assessment & Plan: Assessment: c/w cpap Plantar fasciitis, bilateral 08/06/2012 Breast density 01/25/2010 12/11/2016 Overview: Rt Breast- appt upcoming w/Dr. Vickers for Bx 03/04 Diarrhea 09/09/2008 12/11/2016 Anxiety state, unspecified 06/13 Last Assessment & Plan: She continues with paxil and maintains steady moods. Prior attempts at weaning down with return of low moods/sadness. Does well with therapy. Hemorrhage of gastrointestinal tract, unspecifie d 12/11/2016 Asthma 08/16/2021 documented as of this encounter (statuses as of 10/12/2022) [facility]2021 History of Past illness Narrative* Problem Noted Date Resolved Date Other chest pain 03/15/2021 08/16/2021 Overview: NM cardiac perfusion stress test: Normal, no inducible ischemia or scarred myocardium. LV normal size, LVSF normal with ejection fraction 74%, RV size normal LV size, 06/05/2019 echocardiogram: LVSF NL, EF 64%, no ventricular wall motion abnormalities, no LVDD. RV size and RV SF normal, RVSP 37mmHg consistent with mild pulmonary hypertension. RA and LA normal size. MV 1+ MVR, trace TVI, 1+ TVR, AV mild thickening, gradient peak 7mmHg:, Trace PVR, mild ascending aortic dilation 3.2 cm Obesity, Class I, BMI 30-34.9 01/13/2018 Last Assessment & Plan: Assessment: Body mass index is 33.52 kg/m . Primary osteoarthritis of left knee 08/09/2015 08/16/2021 RAVIN (obstructive sleep apnea) 05/09/2013 Overview: CPAP @ 12 cm , AHI 22 , [facility] Last Assessment & Plan: Assessment: c/w cpap Plantar fasciitis, bilateral 08/06/2012 Breast density 01/25/2010 12/11/2016 Overview: Rt Breast- appt upcoming w/Dr. Vickers for Bx 03/04 Diarrhea 09/09/2008 12/11/2016 Anxiety state, unspecified 06/13 Last Assessment & Plan: She continues with paxil and maintains steady moods. Prior attempts at weaning down with return of low moods/sadness. Does well with therapy. Hemorrhage of gastrointestinal tract, unspecifie d 12/11/2016 Asthma 08/16/2021 documented as of this encounter (statuses as of 11/05/2022) [facility]-21[facility]2021 History of Past illness Narrative* Problem Noted Date Resolved Date Other chest pain 03/15/2021 08/16/2021 Overview: NM cardiac perfusion stress test: Normal, no inducible ischemia or scarred myocardium. LV normal size, LVSF normal with ejection fraction 74%, RV size normal LV size, 06/05/2019 echocardiogram: LVSF NL, EF 64%, no ventricular wall motion abnormalities, no LVDD. RV size and RV SF normal, RVSP 37mmHg consistent with mild pulmonary hypertension. RA and LA normal size. MV 1+ MVR, trace TVI, 1+ TVR, AV mild thickening, gradient peak 7mmHg:, Trace PVR, mild ascending aortic dilation 3.2 cm Obesity, Class I, BMI 30-34.9 01/13/2018 Last Assessment & Plan: Assessment: Body mass index is 33.52 kg/m . Primary osteoarthritis of left knee 08/09/2015 08/16/2021 RAVIN (obstructive sleep apnea) 05/09/2013 Overview: CPAP @ 12 cm , AHI 22 , DME [facility] Last Assessment & Plan: Assessment: c/w cpap Plantar fasciitis, bilateral 08/06/2012 Breast density 01/25/2010 12/11/2016 Overview: Rt Breast- appt upcoming w/Dr. Vickers for Bx 03/04 Diarrhea 09/09/2008 12/11/2016 Anxiety state, unspecified 06/13 Last Assessment & Plan: She continues with paxil and maintains steady moods. Prior attempts at weaning down with return of low moods/sadness. Does well with therapy. Hemorrhage of gastrointestinal tract, unspecifie d 12/11/2016 Asthma 08/16/2021 documented as of this encounter (statuses as of 11/12/2022) [facility]2021 History of Past illness Narrative* Problem Noted Date Resolved Date Other chest pain 03/15/2021 08/16/2021 Overview: NM cardiac perfusion stress test: Normal, no inducible ischemia or scarred myocardium. LV normal size, LVSF normal with ejection fraction 74%, RV size normal LV size, 06/05/2019 echocardiogram: LVSF NL, EF 64%, no ventricular wall motion abnormalities, no LVDD. RV size and RV SF normal, RVSP 37mmHg consistent with mild pulmonary hypertension. RA and LA normal size. MV 1+ MVR, trace TVI, 1+ TVR, AV mild thickening, gradient peak 7mmHg:, Trace PVR, mild ascending aortic dilation 3.2 cm Obesity, Class I, BMI 30-34.9 01/13/2018 Last Assessment & Plan: Assessment: Body mass index is 33.52 kg/m . Primary osteoarthritis of left knee 08/09/2015 08/16/2021 RAIVN (obstructive sleep apnea) 05/09/2013 Overview: CPAP @ 12 cm , AHI 22 , DME [facility] Last Assessment & Plan: Assessment: c/w cpap Plantar fasciitis, bilateral 08/06/2012 Breast density 01/25/2010 12/11/2016 Overview: Rt Breast- appt upcoming w/Dr. Vickers for Bx 03/04 Diarrhea 09/09/2008 12/11/2016 Anxiety state, unspecified 06/13 Last Assessment & Plan: She continues with paxil and maintains steady moods. Prior attempts at weaning down with return of low moods/sadness. Does well with therapy. Hemorrhage of gastrointestinal tract, unspecifie d 12/11/2016 Asthma 08/16/2021 documented as of this encounter (statuses as of 11/20/2022) [facility]21[facility]2021 History of Past illness Narrative* Problem Noted Date Resolved Date Other chest pain 03/15/2021 08/16/2021 Overview: NM cardiac perfusion stress test: Normal, no inducible ischemia or scarred myocardium. LV normal size, LVSF normal with ejection fraction 74%, RV size normal LV size, 06/05/2019 echocardiogram: LVSF NL, EF 64%, no ventricular wall motion abnormalities, no LVDD. RV size and RV SF normal, RVSP 37mmHg consistent with mild pulmonary hypertension. RA and LA normal size. MV 1+ MVR, trace TVI, 1+ TVR, AV mild thickening, gradient peak 7mmHg:, Trace PVR, mild ascending aortic dilation 3.2 cm Obesity, Class I, BMI 30-34.9 01/13/2018 Last Assessment & Plan: Assessment: Body mass index is 33.52 kg/m . Primary osteoarthritis of left knee 08/09/2015 08/16/2021 RAVIN (obstructive sleep apnea) 05/09/2013 Overview: CPAP @ 12 cm , AHI 22 , DME [facility] Last Assessment & Plan: Assessment: c/w cpap Plantar fasciitis, bilateral 08/06/2012 Breast density 01/25/2010 12/11/2016 Overview: Rt Breast- appt upcoming w/Dr. Vickers for Bx 03/04 Diarrhea 09/09/2008 12/11/2016 Anxiety state, unspecified 06/13 Last Assessment & Plan: She continues with paxil and maintains steady moods. Prior attempts at weaning down with return of low moods/sadness. Does well with therapy. Hemorrhage of gastrointestinal tract, unspecifie d 12/11/2016 Asthma 08/16/2021 documented as of this encounter (statuses as of 12/10/2022) [facility]21 History of Past illness Narrative* Problem Noted Date Resolved Date Other chest pain 03/15/2021 08/16/2021 Overview: NM cardiac perfusion stress test: Normal, no inducible ischemia or scarred myocardium. LV normal size, LVSF normal with ejection fraction 74%, RV size normal LV size, 06/05/2019 echocardiogram: LVSF NL, EF 64%, no ventricular wall motion abnormalities, no LVDD. RV size and RV SF normal, RVSP 37mmHg consistent with mild pulmonary hypertension. RA and LA normal size. MV 1+ MVR, trace TVI, 1+ TVR, AV mild thickening, gradient peak 7mmHg:, Trace PVR, mild ascending aortic dilation 3.2 cm Obesity, Class I, BMI 30-34.9 01/13/2018 Last Assessment & Plan: Assessment: Body mass index is 33.52 kg/m . Primary osteoarthritis of left knee 08/09/2015 08/16/2021 RAVIN (obstructive sleep apnea) 05/09/2013 Overview: CPAP @ 12 cm , AHI 22 , DME [facility] Last Assessment & Plan: Assessment: c/w cpap Plantar fasciitis, bilateral 08/06/2012 Breast density 01/25/2010 12/11/2016 Overview: Rt Breast- appt upcoming w/Dr. Vickers for Bx 03/04 Diarrhea 09/09/2008 12/11/2016 Anxiety state, unspecified 06/13 Last Assessment & Plan: She continues with paxil and maintains steady moods. Prior attempts at weaning down with return of low moods/sadness. Does well with therapy. Hemorrhage of gastrointestinal tract, unspecifie d 12/11/2016 Asthma 08/16/2021 documented as of this encounter (statuses as of 12/11/2022) [facility] History of Past illness Narrative* Problem Noted Date Resolved Date Other chest pain 03/15/2021 08/16/2021 Overview: NM cardiac perfusion stress test: Normal, no inducible ischemia or scarred myocardium. LV normal size, LVSF normal with ejection fraction 74%, RV size normal LV size, 06/05/2019 echocardiogram: LVSF NL, EF 64%, no ventricular wall motion abnormalities, no LVDD. RV size and RV SF normal, RVSP 37mmHg consistent with mild pulmonary hypertension. RA and LA normal size. MV 1+ MVR, trace TVI, 1+ TVR, AV mild thickening, gradient peak 7mmHg:, Trace PVR, mild ascending aortic dilation 3.2 cm Obesity, Class I, BMI 30-34.9 01/13/2018 Last Assessment & Plan: Assessment: Body mass index is 33.52 kg/m . Primary osteoarthritis of left knee 08/09/2015 08/16/2021 RAVIN (obstructive sleep apnea) 05/09/2013 Overview: CPAP @ 12 cm , AHI 22 , [facility] Last Assessment & Plan: Assessment: c/w cpap Plantar fasciitis, bilateral 08/06/2012 Breast density 01/25/2010 12/11/2016 Overview: Rt Breast- appt upcoming w/Dr. Vickers for Bx 03/04 Diarrhea 09/09/2008 12/11/2016 Anxiety state, unspecified 06/13 Last Assessment & Plan: She continues with paxil and maintains steady moods. Prior attempts at weaning down with return of low moods/sadness. Does well with therapy. Hemorrhage of gastrointestinal tract, unspecifie d 12/11/2016 Asthma 08/16/2021 documented as of this encounter (statuses as of 12/21/2022) [facility] History of Past illness Narrative* Problem Noted Date Resolved Date Other chest pain 03/15/2021 08/16/2021 Overview: NM cardiac perfusion stress test: Normal, no inducible ischemia or scarred myocardium. LV normal size, LVSF normal with ejection fraction 74%, RV size normal LV size, 06/05/2019 echocardiogram: LVSF NL, EF 64%, no ventricular wall motion abnormalities, no LVDD. RV size and RV SF normal, RVSP 37mmHg consistent with mild pulmonary hypertension. RA and LA normal size. MV 1+ MVR, trace TVI, 1+ TVR, AV mild thickening, gradient peak 7mmHg:, Trace PVR, mild ascending aortic dilation 3.2 cm Obesity, Class I, BMI 30-34.9 01/13/2018 Last Assessment & Plan: Assessment: Body mass index is 33.52 kg/m . Primary osteoarthritis of left knee 08/09/2015 08/16/2021 RAVIN (obstructive sleep apnea) 05/09/2013 Overview: CPAP @ 12 cm , AHI 22 , [facility] Last Assessment & Plan: Assessment: c/w cpap Plantar fasciitis, bilateral 08/06/2012 Breast density 01/25/2010 12/11/2016 Overview: Rt Breast- appt upcoming w/Dr. Vickers for Bx 03/04 Diarrhea 09/09/2008 12/11/2016 Anxiety state, unspecified 06/13 Last Assessment & Plan: She continues with paxil and maintains steady moods. Prior attempts at weaning down with return of low moods/sadness. Does well with therapy. Hemorrhage of gastrointestinal tract, unspecifie d 12/11/2016 Asthma 08/16/2021 documented as of this encounter (statuses as of 01/04/2023) [facility] History of Past illness Narrative* Problem Noted Date Resolved Date Other chest pain 03/15/2021 08/16/2021 Overview: NM cardiac perfusion stress test: Normal, no inducible ischemia or scarred myocardium. LV normal size, LVSF normal with ejection fraction 74%, RV size normal LV size, 06/05/2019 echocardiogram: LVSF NL, EF 64%, no ventricular wall motion abnormalities, no LVDD. RV size and RV SF normal, RVSP 37mmHg consistent with mild pulmonary hypertension. RA and LA normal size. MV 1+ MVR, trace TVI, 1+ TVR, AV mild thickening, gradient peak 7mmHg:, Trace PVR, mild ascending aortic dilation 3.2 cm Obesity, Class I, BMI 30-34.9 01/13/2018 Last Assessment & Plan: Assessment: Body mass index is 33.52 kg/m . Primary osteoarthritis of left knee 08/09/2015 08/16/2021 RAVIN (obstructive sleep apnea) 05/09/2013 Overview: CPAP @ 12 cm , AHI 22 , DME [facility] Last Assessment & Plan: Assessment: c/w cpap Plantar fasciitis, bilateral 08/06/2012 Breast density 01/25/2010 12/11/2016 Overview: Rt Breast- appt upcoming w/Dr. Vickers for Bx 03/04 Diarrhea 09/09/2008 12/11/2016 Anxiety state, unspecified 06/13 Last Assessment & Plan: She continues with paxil and maintains steady moods. Prior attempts at weaning down with return of low moods/sadness. Does well with therapy. Hemorrhage of gastrointestinal tract, unspecifie d 12/11/2016 Asthma 08/16/2021 documented as of this encounter (statuses as of 01/22/2023) [facility] History of Past illness Narrative* Problem Noted Date Resolved Date Other chest pain 03/15/2021 08/16/2021 Overview: NM cardiac perfusion stress test: Normal, no inducible ischemia or scarred myocardium. LV normal size, LVSF normal with ejection fraction 74%, RV size normal LV size, 06/05/2019 echocardiogram: LVSF NL, EF 64%, no ventricular wall motion abnormalities, no LVDD. RV size and RV SF normal, RVSP 37mmHg consistent with mild pulmonary hypertension. RA and LA normal size. MV 1+ MVR, trace TVI, 1+ TVR, AV mild thickening, gradient peak 7mmHg:, Trace PVR, mild ascending aortic dilation 3.2 cm Obesity, Class I, BMI 30-34.9 01/13/2018 Last Assessment & Plan: Assessment: Body mass index is 33.52 kg/m . Primary osteoarthritis of left knee 08/09/2015 08/16/2021 RAVIN (obstructive sleep apnea) 05/09/2013 Overview: CPAP @ 12 cm , AHI 22 , [facility] Last Assessment & Plan: Assessment: c/w cpap Plantar fasciitis, bilateral 08/06/2012 Breast density 01/25/2010 12/11/2016 Overview: Rt Breast- appt upcoming w/Dr. Vickers for Bx 03/04 Diarrhea 09/09/2008 12/11/2016 Anxiety state, unspecified 06/13 Last Assessment & Plan: She continues with paxil and maintains steady moods. Prior attempts at weaning down with return of low moods/sadness. Does well with therapy. Hemorrhage of gastrointestinal tract, unspecifie d 12/11/2016 Asthma 08/16/2021 documented as of this encounter (statuses as of 01/22/2023) [facility] History of Past illness Narrative* Problem Noted Date Resolved Date Other chest pain 03/15/2021 08/16/2021 Overview: NM cardiac perfusion stress test: Normal, no inducible ischemia or scarred myocardium. LV normal size, LVSF normal with ejection fraction 74%, RV size normal LV size, 06/05/2019 echocardiogram: LVSF NL, EF 64%, no ventricular wall motion abnormalities, no LVDD. RV size and RV SF normal, RVSP 37mmHg consistent with mild pulmonary hypertension. RA and LA normal size. MV 1+ MVR, trace TVI, 1+ TVR, AV mild thickening, gradient peak 7mmHg:, Trace PVR, mild ascending aortic dilation 3.2 cm Obesity, Class I, BMI 30-34.9 01/13/2018 Last Assessment & Plan: Assessment: Body mass index is 33.52 kg/m . Primary osteoarthritis of left knee 08/09/2015 08/16/2021 RAVIN (obstructive sleep apnea) 05/09/2013 Overview: CPAP @ 12 cm , AHI 22 , DME [facility] Last Assessment & Plan: Assessment: c/w cpap Plantar fasciitis, bilateral 08/06/2012 Breast density 01/25/2010 12/11/2016 Overview: Rt Breast- appt upcoming w/Dr. Vickers for Bx 03/04 Diarrhea 09/09/2008 12/11/2016 Anxiety state, unspecified 06/13 Last Assessment & Plan: She continues with paxil and maintains steady moods. Prior attempts at weaning down with return of low moods/sadness. Does well with therapy. Hemorrhage of gastrointestinal tract, unspecifie d 12/11/2016 Asthma 08/16/2021 documented as of this encounter (statuses as of 02/11/2023) [facility]21 History of Past illness Narrative* Problem Noted Date Resolved Date Other chest pain 03/15/2021 08/16/2021 Overview: NM cardiac perfusion stress test: Normal, no inducible ischemia or scarred myocardium. LV normal size, LVSF normal with ejection fraction 74%, RV size normal LV size, 06/05/2019 echocardiogram: LVSF NL, EF 64%, no ventricular wall motion abnormalities, no LVDD. RV size and RV SF normal, RVSP 37mmHg consistent with mild pulmonary hypertension. RA and LA normal size. MV 1+ MVR, trace TVI, 1+ TVR, AV mild thickening, gradient peak 7mmHg:, Trace PVR, mild ascending aortic dilation 3.2 cm Obesity, Class I, BMI 30-34.9 01/13/2018 Last Assessment & Plan: Assessment: Body mass index is 33.52 kg/m . Primary osteoarthritis of left knee 08/09/2015 08/16/2021 RAVIN (obstructive sleep apnea) 05/09/2013 Overview: CPAP @ 12 cm , AHI 22 , DME [facility] Last Assessment & Plan: Assessment: c/w cpap Plantar fasciitis, bilateral 08/06/2012 Breast density 01/25/2010 12/11/2016 Overview: Rt Breast- appt upcoming w/Dr. Vickers for Bx 03/04 Diarrhea 09/09/2008 12/11/2016 Anxiety state, unspecified 06/13 Last Assessment & Plan: She continues with paxil and maintains steady moods. Prior attempts at weaning down with return of low moods/sadness. Does well with therapy. Hemorrhage of gastrointestinal tract, unspecifie d 12/11/2016 Asthma 08/16/2021 documented as of this encounter (statuses as of 02/20/2023) [facility] History of Past illness Narrative* Problem Noted Date Diagnosed Date Resolved Date Other chest pain 03/15/2021 08/16/2021 Overview: NM cardiac perfusion stress test: Normal, no inducible ischemia or scarred myocardium. LV normal size, LVSF normal with ejection fraction 74%, RV size normal LV size, 06/05/2019 echocardiogram: LVSF NL, EF 64%, no ventricular wall motion abnormalities, no LVDD. RV size and RV SF normal, RVSP 37mmHg consistent with mild pulmonary hypertension. RA and LA normal size. MV 1+ MVR, trace TVI, 1+ TVR, AV mild thickening, gradient peak 7mmHg:, Trace PVR, mild ascending aortic dilation 3.2 cm Obesity, Class I, BMI 30-34.9 01/13/2018 08/16/2021 Last Assessment & Plan: Assessment: Body mass index is 33.52 kg/m . Primary osteoarthritis of left knee 08/09/2015 08/16/2021 RAVIN (obstructive sleep apnea) 05/09/2013 08/16/2021 Overview: CPAP @ 12 cm , AHI 22 , DME [facility] Last Assessment & Plan: Assessment: c/w cpap Plantar fasciitis, bilateral 08/06/2012 12/11/2016 Breast density 01/25/2010 12/11/2016 Overview: Rt Breast- appt upcoming w/Dr. Vickers for Bx 03/04 Diarrhea 09/09/2008 12/11/2016 Anxiety state, unspecified 1 Last Assessment & Plan: She continues with paxil and maintains steady moods. Prior attempts at weaning down with return of low moods/sadness. Does well with therapy. Hemorrhage of gastrointestin al tract, unspecified 12/11/2016 Asthma 08/16/2021 documented as of this encounter (statuses as of 03/12/2023) [facility] Status post revision of total replacement of left knee- Primary Stiffness of left knee [facility] Diagnosis Nausea Nausea alone [facility] Diagnosis Gastroenteritis- Primary Other and unspecified noninfectious gastroenteritis and colitis Iron deficiency anemia due to chronic blood loss Iron deficiency anemia secondary to blood loss (chronic) Renal insufficiency Unspecified disorder of kidney and ureter Screening for hyperlipidemia Screening for lipoid disorders Nausea Nausea alone [facility] Diagnosis IPMN (intraductal papillary mucinous neoplasm) Neoplasm of unspecified nature of digestive system [facility] Diagnosis Inconclusive mammogram- Primary [facility] Diagnosis Adjustment reaction with anxiety and depression Adjustment disorder with mixed anxiety and depressed mood [facility] Diagnosis Iron deficiency anemia, unspecified iron deficiency anemia type- Primary [facility] Diagnosis Inconclusive mammogram [facility] Diagnosis Abnormal mammogram- Primary Abnormal mammogram, unspecified [facility] Diagnosis Gastroesophageal reflux disease without esophagitis Esophageal reflux [facility] Diagnosis 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)- Primary Non-rheumatic mitral regurgitation Mitral valve disorders Mixed hyperlipidemia Mild pulmonary hypertension (HCC) Other chronic pulmonary heart diseases Obstructive sleep apnea Obstructive sleep apnea (adult) (pediatric) Lung nodules Other nonspecific abnormal finding of lung field Mild persistent asthma without complication Unspecified asthma SOB (shortness of breath) Shortness of breath Adjustment disorder with depressed mood Failure of total knee replacement, initial encounter ([facility]) Iron deficiency anemia, unspecified iron deficiency anemia type Iron malabsorption Other specified intestinal malabsorption Irritable bowel syndrome with diarrhea Irritable bowel syndrome IPMN (intraductal papillary mucinous neoplasm) Neoplasm of unspecified nature of digestive system Urge incontinence Need for COVID-19 vaccine [facility] Diagnosis Infection of prosthetic joint, initial encounter ([facility])- Primary [facility] Diagnosis Chronic pain of left knee- Primary Pain in joint, lower leg Infection of prosthetic joint, initial encounter ([facility]) [facility] Diagnosis Urinary urgency Urgency of urination Urge incontinence [facility] Diagnosis Iron deficiency anemia due to chronic blood loss- Primary 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 Other specified intestinal malabsorption [facility] Diagnosis Primary hypertension- Primary Unspecified essential hypertension Non-rheumatic mitral regurgitation Mitral valve disorders Mixed hyperlipidemia RAVIN (obstructive sleep apnea) Obstructive sleep apnea (adult) (pediatric) Mild pulmonary hypertension (HCC) Other chronic pulmonary heart diseases [facility] Diagnosis Vertigo- Primary Dizziness and giddiness Bilateral impacted cerumen Impacted cerumen [facility] Diagnosis Mild persistent asthma without complication- Primary Unspecified asthma [facility] Diagnosis Night sweats- Primary Generalized hyperhidrosis Other general symptoms and signs Screening for HIV (human immunodeficiency virus) Special screening examination for other specified viral diseases [facility] Diagnosis Gastroenteritis Other and unspecified noninfectious gastroenteritis and colitis Nausea Nausea alone [facility] Diagnosis Urinary urgency Urgency of urination Urge incontinence [facility] Diagnosis Gastroenteritis Other and unspecified noninfectious gastroenteritis and colitis Nausea Nausea alone [facility] Diagnosis Urinary urgency Urgency of urination Urge incontinence [facility] Diagnosis Iron deficiency anemia, unspecified iron deficiency anemia type- Primary [facility] Diagnosis Abnormal mammogram- Primary Abnormal mammogram, unspecified [facility] Diagnosis Urinary urgency Urgency of urination Urge incontinence [facility] Diagnosis Adjustment reaction with anxiety and depression Adjustment disorder with mixed anxiety and depressed mood [facility] Diagnosis Congestion of upper airway- Primary Other diseases of respiratory system, not elsewhere classified Cough, unspecified type Sinus pressure Other diseases of nasal cavity and sinuses [facility] Diagnosis Non-rheumatic mitral regurgitation- Primary Mitral valve disorders Primary hypertension Unspecified essential hypertension Mixed hyperlipidemia RAVIN (obstructive sleep apnea) Obstructive sleep apnea (adult) (pediatric) Mild pulmonary hypertension (HCC) Other chronic pulmonary heart diseases Hyperlipidemia, mixed Mixed hyperlipidemia [facility] Diagnosis Vertigo- Primary Dizziness and giddiness [facility] Diagnosis Adjustment reaction with anxiety and depression- Primary Adjustment disorder with mixed anxiety and depressed mood Depression, recurrent (HCC) Major depressive disorder, recurrent episode, unspecified Non-rheumatic mitral regurgitation Mitral valve disorders 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) Mixed hyperlipidemia Mild pulmonary hypertension (HCC) Other chronic pulmonary heart diseases SOB (shortness of breath) Shortness of breath Obstructive sleep apnea Obstructive sleep apnea (adult) (pediatric) Mild persistent asthma without complication Unspecified asthma Seasonal allergies Allergic rhinitis, cause unspecified IPMN (intraductal papillary mucinous neoplasm) Neoplasm of unspecified nature of digestive system Gastroesophageal reflux disease with esophagitis without hemorrhage Irritable bowel syndrome with diarrhea Irritable bowel syndrome Chronic pain of left knee Pain in joint, lower leg Infection of prosthetic joint, initial encounter ([facility]) Failure of total knee replacement, initial encounter ([facility]) [facility] Diagnosis Gastroesophageal reflux disease without esophagitis Esophageal reflux documented in this encounter [facility] note* Diagnosis Mixed hyperlipidemia Primary hypertension Unspecified essential hypertension [facility] Diagnosis Primary hypertension Unspecified essential hypertension [facility] Diagnosis Abnormal mammogram Abnormal mammogram, unspecified documented in this encounter [facility] note* Diagnosis Abnormal mammogram Abnormal mammogram, unspecified [facility] Diagnosis IPMN (intraductal papillary mucinous neoplasm) Neoplasm of unspecified nature of digestive system [facility] Diagnosis Acute otitis media, right- Primary Unspecified otitis media Rhinosinusitis Unspecified sinusitis (chronic) documented in this encounter [facility] note* Diagnosis Chronic diastolic congestive heart failure (HCC)- Primary Chronic diastolic heart failure documented in this encounter [facility] note* Diagnosis Postmenopausal status- Primary Asymptomatic postmenopausal status (age-related) (natural) [facility] Diagnosis Postmenopausal status Asymptomatic postmenopausal status (age-related) (natural) documented in this encounter [facility] note* Diagnosis Chronic pain of left knee- Primary Pain in joint, lower leg Failure of total knee replacement, initial encounter ([facility]) (HCC) documented in this encounter [facility] note* Diagnosis Chronic pain of left knee- Primary Pain in joint, lower leg [facility] Diagnosis Infection of prosthetic joint, initial encounter ([facility])- Primary Radiculopathy, lumbar region Thoracic or lumbosacral neuritis or radiculitis, unspecified documented in this encounter [facility] note* Diagnosis Primary hypertension Unspecified essential hypertension [facility] Diagnosis Radiculopathy, lumbar region Thoracic or lumbosacral neuritis or radiculitis, unspecified [facility] Diagnosis Infection of prosthetic joint, initial encounter ([facility])- Primary [facility] Diagnosis Bacterial sinusitis- Primary Unspecified sinusitis (chronic) Bilateral impacted cerumen Impacted cerumen [facility] Diagnosis Coccyx pain- Primary Other disorder of coccyx documented in this encounter [facility] note* Diagnosis Gastroesophageal reflux disease without esophagitis Esophageal reflux [facility]* Diagnosis ANXIETY STATE NOS- Primary Anxiety state, unspecified INT HEMORRHOID W/O COMPL Internal hemorrhoids without mention of complication HYPERLIPIDEMIA NEC/NOS Other and unspecified hyperlipidemia GERD (gastroesophageal reflux disease) Esophageal reflux Esophageal reflux Pre-operative examination- Primary Preoperative examination, unspecified Primary osteoarthritis of left knee Primary localized osteoarthrosis, lower leg Left knee pain, unspecified chronicity Mixed hyperlipidemia Non-rheumatic mitral regurgitation Mitral valve disorders Mild pulmonary hypertension (HCC) Other chronic pulmonary heart diseases RAVIN (obstructive sleep apnea) Obstructive sleep apnea (adult) (pediatric) Mild persistent asthma without complication Unspecified asthma IPMN (intraductal papillary mucinous neoplasm) Neoplasm of unspecified nature of digestive system Adjustment disorder with depressed mood Lung nodules Other nonspecific abnormal finding of lung field Gastroesophageal reflux disease without esophagitis Esophageal reflux Irritable bowel syndrome with diarrhea Irritable bowel syndrome Urge incontinence Obesity, Class I, BMI 30-34.9 Obesity, unspecified Preoperative examination- Primary Preoperative examination, unspecified Infection of prosthetic joint, initial encounter ([facility]) Urinary frequency Myalgia Mylagia and myositis, unspecified Lung nodules Other nonspecific abnormal finding of lung field Mild persistent asthma without complication Unspecified asthma SOB (shortness of breath) Shortness of breath Obstructive sleep apnea Obstructive sleep apnea (adult) (pediatric) Mild pulmonary hypertension (HCC) Other chronic pulmonary heart diseases Mixed hyperlipidemia Non-rheumatic mitral regurgitation Mitral valve disorders IPMN (intraductal papillary mucinous neoplasm) Neoplasm of unspecified nature of digestive system Gastroesophageal reflux disease with esophagitis without hemorrhage Irritable bowel syndrome with diarrhea Irritable bowel syndrome Urge incontinence Iron deficiency anemia, unspecified iron deficiency anemia type Adjustment disorder with depressed mood Chronic pain of right upper extremity- Primary Other hyperlipidemia Mild persistent asthma without complication Unspecified asthma Chronic pain of left knee Pain in joint, lower leg Mild pulmonary hypertension (HCC) Other chronic pulmonary heart diseases Obstructive sleep apnea Obstructive sleep apnea (adult) (pediatric) Seasonal allergic rhinitis, unspecified trigger Gastroesophageal reflux disease without esophagitis Esophageal reflux Primary hypertension Unspecified essential hypertension Mixed hyperlipidemia Gastroenteritis Other and unspecified noninfectious gastroenteritis and colitis Nausea Nausea alone Anxiety with depression [facility] Diagnosis ANXIETY STATE NOS- Primary Anxiety state, unspecified INT HEMORRHOID W/O COMPL Internal hemorrhoids without mention of complication HYPERLIPIDEMIA NEC/NOS Other and unspecified hyperlipidemia GERD (gastroesophageal reflux disease) Esophageal reflux Esophageal reflux Pre-operative examination- Primary Preoperative examination, unspecified Primary osteoarthritis of left knee Primary localized osteoarthrosis, lower leg Left knee pain, unspecified chronicity Mixed hyperlipidemia Non-rheumatic mitral regurgitation Mitral valve disorders Mild pulmonary hypertension (HCC) Other chronic pulmonary heart diseases RAVIN (obstructive sleep apnea) Obstructive sleep apnea (adult) (pediatric) Mild persistent asthma without complication Unspecified asthma IPMN (intraductal papillary mucinous neoplasm) Neoplasm of unspecified nature of digestive system Adjustment disorder with depressed mood Lung nodules Other nonspecific abnormal finding of lung field Gastroesophageal reflux disease without esophagitis Esophageal reflux Irritable bowel syndrome with diarrhea Irritable bowel syndrome Urge incontinence Obesity, Class I, BMI 30-34.9 Obesity, unspecified Preoperative examination- Primary Preoperative examination, unspecified Infection of prosthetic joint, initial encounter ([facility]) Urinary frequency Myalgia Mylagia and myositis, unspecified Lung nodules Other nonspecific abnormal finding of lung field Mild persistent asthma without complication Unspecified asthma SOB (shortness of breath) Shortness of breath Obstructive sleep apnea Obstructive sleep apnea (adult) (pediatric) Mild pulmonary hypertension (HCC) Other chronic pulmonary heart diseases Mixed hyperlipidemia Non-rheumatic mitral regurgitation Mitral valve disorders IPMN (intraductal papillary mucinous neoplasm) Neoplasm of unspecified nature of digestive system Gastroesophageal reflux disease with esophagitis without hemorrhage Irritable bowel syndrome with diarrhea Irritable bowel syndrome Urge incontinence Iron deficiency anemia, unspecified iron deficiency anemia type Adjustment disorder with depressed mood Coccyx pain Other disorder of coccyx [facility] Diagnosis ANXIETY STATE NOS- Primary Anxiety state, unspecified INT HEMORRHOID W/O COMPL Internal hemorrhoids without mention of complication HYPERLIPIDEMIA NEC/NOS Other and unspecified hyperlipidemia GERD (gastroesophageal reflux disease) Esophageal reflux Esophageal reflux Pre-operative examination- Primary Preoperative examination, unspecified Primary osteoarthritis of left knee Primary localized osteoarthrosis, lower leg Left knee pain, unspecified chronicity Mixed hyperlipidemia Non-rheumatic mitral regurgitation Mitral valve disorders Mild pulmonary hypertension (HCC) Other chronic pulmonary heart diseases RAVIN (obstructive sleep apnea) Obstructive sleep apnea (adult) (pediatric) Mild persistent asthma without complication Unspecified asthma IPMN (intraductal papillary mucinous neoplasm) Neoplasm of unspecified nature of digestive system Adjustment disorder with depressed mood Lung nodules Other nonspecific abnormal finding of lung field Gastroesophageal reflux disease without esophagitis Esophageal reflux Irritable bowel syndrome with diarrhea Irritable bowel syndrome Urge incontinence Obesity, Class I, BMI 30-34.9 Obesity, unspecified Preoperative examination- Primary Preoperative examination, unspecified Infection of prosthetic joint, initial encounter ([facility]) Urinary frequency Myalgia Mylagia and myositis, unspecified Lung nodules Other nonspecific abnormal finding of lung field Mild persistent asthma without complication Unspecified asthma SOB (shortness of breath) Shortness of breath Obstructive sleep apnea Obstructive sleep apnea (adult) (pediatric) Mild pulmonary hypertension (HCC) Other chronic pulmonary heart diseases Mixed hyperlipidemia Non-rheumatic mitral regurgitation Mitral valve disorders IPMN (intraductal papillary mucinous neoplasm) Neoplasm of unspecified nature of digestive system Gastroesophageal reflux disease with esophagitis without hemorrhage Irritable bowel syndrome with diarrhea Irritable bowel syndrome Urge incontinence Iron deficiency anemia, unspecified iron deficiency anemia type Adjustment disorder with depressed mood Left knee pain, unspecified chronicity [facility] [facility] Diagnosis ANXIETY STATE NOS- Primary Anxiety state, unspecified INT HEMORRHOID W/O COMPL Internal hemorrhoids without mention of complication HYPERLIPIDEMIA NEC/NOS Other and unspecified hyperlipidemia GERD (gastroesophageal reflux disease) Esophageal reflux Esophageal reflux Pre-operative examination- Primary Preoperative examination, unspecified Primary osteoarthritis of left knee Primary localized osteoarthrosis, lower leg Left knee pain, unspecified chronicity Mixed hyperlipidemia Non-rheumatic mitral regurgitation Mitral valve disorders Mild pulmonary hypertension (HCC) Other chronic pulmonary heart diseases RAVIN (obstructive sleep apnea) Obstructive sleep apnea (adult) (pediatric) Mild persistent asthma without complication Unspecified asthma IPMN (intraductal papillary mucinous neoplasm) Neoplasm of unspecified nature of digestive system Adjustment disorder with depressed mood Lung nodules Other nonspecific abnormal finding of lung field Gastroesophageal reflux disease without esophagitis Esophageal reflux Irritable bowel syndrome with diarrhea Irritable bowel syndrome Urge incontinence Obesity, Class I, BMI 30-34.9 Obesity, unspecified Preoperative examination- Primary Preoperative examination, unspecified Infection of prosthetic joint, initial encounter ([facility]) Urinary frequency Myalgia Mylagia and myositis, unspecified Lung nodules Other nonspecific abnormal finding of lung field Mild persistent asthma without complication Unspecified asthma SOB (shortness of breath) Shortness of breath Obstructive sleep apnea Obstructive sleep apnea (adult) (pediatric) Mild pulmonary hypertension (HCC) Other chronic pulmonary heart diseases Mixed hyperlipidemia Non-rheumatic mitral regurgitation Mitral valve disorders IPMN (intraductal papillary mucinous neoplasm) Neoplasm of unspecified nature of digestive system Gastroesophageal reflux disease with esophagitis without hemorrhage Irritable bowel syndrome with diarrhea Irritable bowel syndrome Urge incontinence Iron deficiency anemia, unspecified iron deficiency anemia type Adjustment disorder with depressed mood Acute [facility] Diagnosis ANXIETY STATE NOS- Primary Anxiety state, unspecified INT HEMORRHOID W/O COMPL Internal hemorrhoids without mention of complication HYPERLIPIDEMIA NEC/NOS Other and unspecified hyperlipidemia GERD (gastroesophageal reflux disease) Esophageal reflux Esophageal reflux Pre-operative examination- Primary Preoperative examination, unspecified Primary osteoarthritis of left knee Primary localized osteoarthrosis, lower leg Left knee pain, unspecified chronicity Mixed hyperlipidemia Non-rheumatic mitral regurgitation Mitral valve disorders Mild pulmonary hypertension (HCC) Other chronic pulmonary heart diseases RAVIN (obstructive sleep apnea) Obstructive sleep apnea (adult) (pediatric) Mild persistent asthma without complication Unspecified asthma IPMN (intraductal papillary mucinous neoplasm) Neoplasm of unspecified nature of digestive system Adjustment disorder with depressed mood Lung nodules Other nonspecific abnormal finding of lung field Gastroesophageal reflux disease without esophagitis Esophageal reflux Irritable bowel syndrome with diarrhea Irritable bowel syndrome Urge incontinence Obesity, Class I, BMI 30-34.9 Obesity, unspecified Preoperative examination- Primary Preoperative examination, unspecified Infection of prosthetic joint, initial encounter ([facility]) Urinary frequency Myalgia Mylagia and myositis, unspecified Lung nodules Other nonspecific abnormal finding of lung field Mild persistent asthma without complication Unspecified asthma SOB (shortness of breath) Shortness of breath Obstructive sleep apnea Obstructive sleep apnea (adult) (pediatric) Mild pulmonary hypertension (HCC) Other chronic pulmonary heart diseases Mixed hyperlipidemia Non-rheumatic mitral regurgitation Mitral valve disorders IPMN (intraductal papillary mucinous neoplasm) Neoplasm of unspecified nature of digestive system Gastroesophageal reflux disease with esophagitis without hemorrhage Irritable bowel syndrome with diarrhea Irritable bowel syndrome Urge incontinence Iron deficiency anemia, unspecified iron deficiency anemia type Adjustment disorder with depressed mood Encounter for screening mammogram for malignant neoplasm of breast- Primary Other screening mammogram Nipple discharge Other sign and symptom in breast [facility] Diagnosis ANXIETY STATE NOS- Primary Anxiety state, unspecified INT HEMORRHOID W/O COMPL Internal hemorrhoids without mention of complication HYPERLIPIDEMIA NEC/NOS Other and unspecified hyperlipidemia GERD (gastroesophageal reflux disease) Esophageal reflux Esophageal reflux Pre-operative examination- Primary Preoperative examination, unspecified Primary osteoarthritis of left knee Primary localized osteoarthrosis, lower leg Left knee pain, unspecified chronicity Mixed hyperlipidemia Non-rheumatic mitral regurgitation Mitral valve disorders Mild pulmonary hypertension (HCC) Other chronic pulmonary heart diseases RAVIN (obstructive sleep apnea) Obstructive sleep apnea (adult) (pediatric) Mild persistent asthma without complication Unspecified asthma IPMN (intraductal papillary mucinous neoplasm) Neoplasm of unspecified nature of digestive system Adjustment disorder with depressed mood Lung nodules Other nonspecific abnormal finding of lung field Gastroesophageal reflux disease without esophagitis Esophageal reflux Irritable bowel syndrome with diarrhea Irritable bowel syndrome Urge incontinence Obesity, Class I, BMI 30-34.9 Obesity, unspecified Preoperative examination- Primary Preoperative examination, unspecified Infection of prosthetic joint, initial encounter ([facility]) Urinary frequency Myalgia Mylagia and myositis, unspecified Lung nodules Other nonspecific abnormal finding of lung field Mild persistent asthma without complication Unspecified asthma SOB (shortness of breath) Shortness of breath Obstructive sleep apnea Obstructive sleep apnea (adult) (pediatric) Mild pulmonary hypertension (HCC) Other chronic pulmonary heart diseases Mixed hyperlipidemia Non-rheumatic mitral regurgitation Mitral valve disorders IPMN (intraductal papillary mucinous neoplasm) Neoplasm of unspecified nature of digestive system Gastroesophageal reflux disease with esophagitis without hemorrhage Irritable bowel syndrome with diarrhea Irritable bowel syndrome Urge incontinence Iron deficiency anemia, unspecified iron deficiency anemia type Adjustment disorder with depressed mood Spinal stenosis of lumbar region with neurogenic claudication- Primary Spinal stenosis, lumbar region, with neurogenic claudication Radiculopathy, lumbar region Thoracic or lumbosacral neuritis or radiculitis, unspecified [facility] Diagnosis ANXIETY STATE NOS- Primary Anxiety state, unspecified INT HEMORRHOID W/O COMPL Internal hemorrhoids without mention of complication HYPERLIPIDEMIA NEC/NOS Other and unspecified hyperlipidemia GERD (gastroesophageal reflux disease) Esophageal reflux Esophageal reflux Pre-operative examination- Primary Preoperative examination, unspecified Primary osteoarthritis of left knee Primary localized osteoarthrosis, lower leg Left knee pain, unspecified chronicity Mixed hyperlipidemia Non-rheumatic mitral regurgitation Mitral valve disorders Mild pulmonary hypertension (HCC) Other chronic pulmonary heart diseases RAVIN (obstructive sleep apnea) Obstructive sleep apnea (adult) (pediatric) Mild persistent asthma without complication Unspecified asthma IPMN (intraductal papillary mucinous neoplasm) Neoplasm of unspecified nature of digestive system Adjustment disorder with depressed mood Lung nodules Other nonspecific abnormal finding of lung field Gastroesophageal reflux disease without esophagitis Esophageal reflux Irritable bowel syndrome with diarrhea Irritable bowel syndrome Urge incontinence Obesity, Class I, BMI 30-34.9 Obesity, unspecified Preoperative examination- Primary Preoperative examination, unspecified Infection of prosthetic joint, initial encounter ([facility]) Urinary frequency Myalgia Mylagia and myositis, unspecified Lung nodules Other nonspecific abnormal finding of lung field Mild persistent asthma without complication Unspecified asthma SOB (shortness of breath) Shortness of breath Obstructive sleep apnea Obstructive sleep apnea (adult) (pediatric) Mild pulmonary hypertension (HCC) Other chronic pulmonary heart diseases Mixed hyperlipidemia Non-rheumatic mitral regurgitation Mitral valve disorders IPMN (intraductal papillary mucinous neoplasm) Neoplasm of unspecified nature of digestive system Gastroesophageal reflux disease with esophagitis without hemorrhage Irritable bowel syndrome with diarrhea Irritable bowel syndrome Urge incontinence Iron deficiency anemia, unspecified iron deficiency anemia type Adjustment disorder with depressed mood Encounter for screening mammogram for malignant neoplasm of breast Other screening mammogram Nipple discharge Other sign and symptom in breast [facility]* Diagnosis ANXIETY STATE NOS- Primary Anxiety state, unspecified INT HEMORRHOID W/O COMPL Internal hemorrhoids without mention of complication HYPERLIPIDEMIA NEC/NOS Other and unspecified hyperlipidemia GERD (gastroesophageal reflux disease) Esophageal reflux Esophageal reflux Pre-operative examination- Primary Preoperative examination, unspecified Primary osteoarthritis of left knee Primary localized osteoarthrosis, lower leg Left knee pain, unspecified chronicity Mixed hyperlipidemia Non-rheumatic mitral regurgitation Mitral valve disorders Mild pulmonary hypertension (HCC) Other chronic pulmonary heart diseases RAVIN (obstructive sleep apnea) Obstructive sleep apnea (adult) (pediatric) Mild persistent asthma without complication Unspecified asthma IPMN (intraductal papillary mucinous neoplasm) Neoplasm of unspecified nature of digestive system Adjustment disorder with depressed mood Lung nodules Other nonspecific abnormal finding of lung field Gastroesophageal reflux disease without esophagitis Esophageal reflux Irritable bowel syndrome with diarrhea Irritable bowel syndrome Urge incontinence Obesity, Class I, BMI 30-34.9 Obesity, unspecified Preoperative examination- Primary Preoperative examination, unspecified Infection of prosthetic joint, initial encounter (HCC) Urinary frequency Myalgia Mylagia and myositis, unspecified Lung nodules Other nonspecific abnormal finding of lung field Mild persistent asthma without complication Unspecified asthma SOB (shortness of breath) Shortness of breath Obstructive sleep apnea Obstructive sleep apnea (adult) (pediatric) Mild pulmonary hypertension (HCC) Other chronic pulmonary heart diseases Mixed hyperlipidemia Non-rheumatic mitral regurgitation Mitral valve disorders IPMN (intraductal papillary mucinous neoplasm) Neoplasm of unspecified nature of digestive system Gastroesophageal reflux disease with esophagitis without hemorrhage Irritable bowel syndrome with diarrhea Irritable bowel syndrome Urge incontinence Iron deficiency anemia, unspecified iron deficiency anemia type Adjustment disorder with depressed mood Encounter for screening mammogram for malignant neoplasm of breast Other screening mammogram Nipple discharge Other sign and symptom in breast [facility] Diagnosis ANXIETY STATE NOS- Primary Anxiety state, unspecified INT HEMORRHOID W/O COMPL Internal hemorrhoids without mention of complication HYPERLIPIDEMIA NEC/NOS Other and unspecified hyperlipidemia GERD (gastroesophageal reflux disease) Esophageal reflux Esophageal reflux Pre-operative examination- Primary Preoperative examination, unspecified Primary osteoarthritis of left knee Primary localized osteoarthrosis, lower leg Left knee pain, unspecified chronicity Mixed hyperlipidemia Non-rheumatic mitral regurgitation Mitral valve disorders Mild pulmonary hypertension (HCC) Other chronic pulmonary heart diseases RAVIN (obstructive sleep apnea) Obstructive sleep apnea (adult) (pediatric) Mild persistent asthma without complication Unspecified asthma IPMN (intraductal papillary mucinous neoplasm) Neoplasm of unspecified nature of digestive system Adjustment disorder with depressed mood Lung nodules Other nonspecific abnormal finding of lung field Gastroesophageal reflux disease without esophagitis Esophageal reflux Irritable bowel syndrome with diarrhea Irritable bowel syndrome Urge incontinence Obesity, Class I, BMI 30-34.9 Obesity, unspecified Preoperative examination- Primary Preoperative examination, unspecified Infection of prosthetic joint, initial encounter ([facility]) Urinary frequency Myalgia Mylagia and myositis, unspecified Lung nodules Other nonspecific abnormal finding of lung field Mild persistent asthma without complication Unspecified asthma SOB (shortness of breath) Shortness of breath Obstructive sleep apnea Obstructive sleep apnea (adult) (pediatric) Mild pulmonary hypertension (HCC) Other chronic pulmonary heart diseases Mixed hyperlipidemia Non-rheumatic mitral regurgitation Mitral valve disorders IPMN (intraductal papillary mucinous neoplasm) Neoplasm of unspecified nature of digestive system Gastroesophageal reflux disease with esophagitis without hemorrhage Irritable bowel syndrome with diarrhea Irritable bowel syndrome Urge incontinence Iron deficiency anemia, unspecified iron deficiency anemia type Adjustment disorder with depressed mood Subareolar mass of left breast- Primary [facility]* Diagnosis ANXIETY STATE NOS- Primary Anxiety state, unspecified INT HEMORRHOID W/O COMPL Internal hemorrhoids without mention of complication HYPERLIPIDEMIA NEC/NOS Other and unspecified hyperlipidemia GERD (gastroesophageal reflux disease) Esophageal reflux Esophageal reflux Pre-operative examination- Primary Preoperative examination, unspecified Primary osteoarthritis of left knee Primary localized osteoarthrosis, lower leg Left knee pain, unspecified chronicity Mixed hyperlipidemia Non-rheumatic mitral regurgitation Mitral valve disorders Mild pulmonary hypertension (HCC) Other chronic pulmonary heart diseases RAVIN (obstructive sleep apnea) Obstructive sleep apnea (adult) (pediatric) Mild persistent asthma without complication Unspecified asthma IPMN (intraductal papillary mucinous neoplasm) Neoplasm of unspecified nature of digestive system Adjustment disorder with depressed mood Lung nodules Other nonspecific abnormal finding of lung field Gastroesophageal reflux disease without esophagitis Esophageal reflux Irritable bowel syndrome with diarrhea Irritable bowel syndrome Urge incontinence Obesity, Class I, BMI 30-34.9 Obesity, unspecified Preoperative examination- Primary Preoperative examination, unspecified Infection of prosthetic joint, initial encounter ([facility]) Urinary frequency Myalgia Mylagia and myositis, unspecified Lung nodules Other nonspecific abnormal finding of lung field Mild persistent asthma without complication Unspecified asthma SOB (shortness of breath) Shortness of breath Obstructive sleep apnea Obstructive sleep apnea (adult) (pediatric) Mild pulmonary hypertension (HCC) Other chronic pulmonary heart diseases Mixed hyperlipidemia Non-rheumatic mitral regurgitation Mitral valve disorders IPMN (intraductal papillary mucinous neoplasm) Neoplasm of unspecified nature of digestive system Gastroesophageal reflux disease with esophagitis without hemorrhage Irritable bowel syndrome with diarrhea Irritable bowel syndrome Urge incontinence Iron deficiency anemia, unspecified iron deficiency anemia type Adjustment disorder with depressed mood Spinal stenosis of lumbar region with neurogenic claudication Spinal stenosis, lumbar region, with neurogenic claudication Radiculopathy, lumbar region Thoracic or lumbosacral neuritis or radiculitis, unspecified [facility]* Diagnosis ANXIETY STATE NOS- Primary Anxiety state, unspecified INT HEMORRHOID W/O COMPL Internal hemorrhoids without mention of complication HYPERLIPIDEMIA NEC/NOS Other and unspecified hyperlipidemia GERD (gastroesophageal reflux disease) Esophageal reflux Esophageal reflux Pre-operative examination- Primary Preoperative examination, unspecified Primary osteoarthritis of left knee Primary localized osteoarthrosis, lower leg Left knee pain, unspecified chronicity Mixed hyperlipidemia Non-rheumatic mitral regurgitation Mitral valve disorders Mild pulmonary hypertension (HCC) Other chronic pulmonary heart diseases RAVIN (obstructive sleep apnea) Obstructive sleep apnea (adult) (pediatric) Mild persistent asthma without complication Unspecified asthma IPMN (intraductal papillary mucinous neoplasm) Neoplasm of unspecified nature of digestive system Adjustment disorder with depressed mood Lung nodules Other nonspecific abnormal finding of lung field Gastroesophageal reflux disease without esophagitis Esophageal reflux Irritable bowel syndrome with diarrhea Irritable bowel syndrome Urge incontinence Obesity, Class I, BMI 30-34.9 Obesity, unspecified Preoperative examination- Primary Preoperative examination, unspecified Infection of prosthetic joint, initial encounter (HCC) Urinary frequency Myalgia Mylagia and myositis, unspecified Lung nodules Other nonspecific abnormal finding of lung field Mild persistent asthma without complication Unspecified asthma SOB (shortness of breath) Shortness of breath Obstructive sleep apnea Obstructive sleep apnea (adult) (pediatric) Mild pulmonary hypertension (HCC) Other chronic pulmonary heart diseases Mixed hyperlipidemia Non-rheumatic mitral regurgitation Mitral valve disorders IPMN (intraductal papillary mucinous neoplasm) Neoplasm of unspecified nature of digestive system Gastroesophageal reflux disease with esophagitis without hemorrhage Irritable bowel syndrome with diarrhea Irritable bowel syndrome Urge incontinence Iron deficiency anemia, unspecified iron deficiency anemia type Adjustment disorder with depressed mood Spinal stenosis of lumbar region with neurogenic claudication Spinal stenosis, lumbar region, with neurogenic claudication Radiculopathy, lumbar region Thoracic or lumbosacral neuritis or radiculitis, unspecified [facility] Diagnosis ANXIETY STATE NOS- Primary Anxiety state, unspecified INT HEMORRHOID W/O COMPL Internal hemorrhoids without mention of complication HYPERLIPIDEMIA NEC/NOS Other and unspecified hyperlipidemia GERD (gastroesophageal reflux disease) Esophageal reflux Esophageal reflux Pre-operative examination- Primary Preoperative examination, unspecified Primary osteoarthritis of left knee Primary localized osteoarthrosis, lower leg Left knee pain, unspecified chronicity Mixed hyperlipidemia Non-rheumatic mitral regurgitation Mitral valve disorders Mild pulmonary hypertension (HCC) Other chronic pulmonary heart diseases RAVIN (obstructive sleep apnea) Obstructive sleep apnea (adult) (pediatric) Mild persistent asthma without complication Unspecified asthma IPMN (intraductal papillary mucinous neoplasm) Neoplasm of unspecified nature of digestive system Adjustment disorder with depressed mood Lung nodules Other nonspecific abnormal finding of lung field Gastroesophageal reflux disease without esophagitis Esophageal reflux Irritable bowel syndrome with diarrhea Irritable bowel syndrome Urge incontinence Obesity, Class I, BMI 30-34.9 Obesity, unspecified Preoperative examination- Primary Preoperative examination, unspecified Infection of prosthetic joint, initial encounter (HCC) Urinary frequency Myalgia Mylagia and myositis, unspecified Lung nodules Other nonspecific abnormal finding of lung field Mild persistent asthma without complication Unspecified asthma SOB (shortness of breath) Shortness of breath Obstructive sleep apnea Obstructive sleep apnea (adult) (pediatric) Mild pulmonary hypertension (HCC) Other chronic pulmonary heart diseases Mixed hyperlipidemia Non-rheumatic mitral regurgitation Mitral valve disorders IPMN (intraductal papillary mucinous neoplasm) Neoplasm of unspecified nature of digestive system Gastroesophageal reflux disease with esophagitis without hemorrhage Irritable bowel syndrome with diarrhea Irritable bowel syndrome Urge incontinence Iron deficiency anemia, unspecified iron deficiency anemia type Adjustment disorder with depressed mood Subareolar mass of left breast documented in this encounter [facility] note* Diagnosis ANXIETY STATE NOS- Primary Anxiety state, unspecified INT HEMORRHOID W/O COMPL Internal hemorrhoids without mention of complication HYPERLIPIDEMIA NEC/NOS Other and unspecified hyperlipidemia GERD (gastroesophageal reflux disease) Esophageal reflux Esophageal reflux Pre-operative examination- Primary Preoperative examination, unspecified Primary osteoarthritis of left knee Primary localized osteoarthrosis, lower leg Left knee pain, unspecified chronicity Mixed hyperlipidemia Non-rheumatic mitral regurgitation Mitral valve disorders Mild pulmonary hypertension (HCC) Other chronic pulmonary heart diseases RAVIN (obstructive sleep apnea) Obstructive sleep apnea (adult) (pediatric) Mild persistent asthma without complication Unspecified asthma IPMN (intraductal papillary mucinous neoplasm) Neoplasm of unspecified nature of digestive system Adjustment disorder with depressed mood Lung nodules Other nonspecific abnormal finding of lung field Gastroesophageal reflux disease without esophagitis Esophageal reflux Irritable bowel syndrome with diarrhea Irritable bowel syndrome Urge incontinence Obesity, Class I, BMI 30-34.9 Obesity, unspecified Preoperative examination- Primary Preoperative examination, unspecified Infection of prosthetic joint, initial encounter ([facility]) Urinary frequency Myalgia Mylagia and myositis, unspecified Lung nodules Other nonspecific abnormal finding of lung field Mild persistent asthma without complication Unspecified asthma SOB (shortness of breath) Shortness of breath Obstructive sleep apnea Obstructive sleep apnea (adult) (pediatric) Mild pulmonary hypertension (HCC) Other chronic pulmonary heart diseases Mixed hyperlipidemia Non-rheumatic mitral regurgitation Mitral valve disorders IPMN (intraductal papillary mucinous neoplasm) Neoplasm of unspecified nature of digestive system Gastroesophageal reflux disease with esophagitis without hemorrhage Irritable bowel syndrome with diarrhea Irritable bowel syndrome Urge incontinence Iron deficiency anemia, unspecified iron deficiency anemia type Adjustment disorder with depressed mood Spinal stenosis of lumbar region with neurogenic claudication- Primary Spinal stenosis, lumbar region, with neurogenic claudication Radiculopathy, lumbar region Thoracic or lumbosacral neuritis or radiculitis, unspecified [facility] Diagnosis ANXIETY STATE NOS- Primary Anxiety state, unspecified INT HEMORRHOID W/O COMPL Internal hemorrhoids without mention of complication HYPERLIPIDEMIA NEC/NOS Other and unspecified hyperlipidemia GERD (gastroesophageal reflux disease) Esophageal reflux Esophageal reflux Pre-operative examination- Primary Preoperative examination, unspecified Primary osteoarthritis of left knee Primary localized osteoarthrosis, lower leg Left knee pain, unspecified chronicity Mixed hyperlipidemia Non-rheumatic mitral regurgitation Mitral valve disorders Mild pulmonary hypertension (HCC) Other chronic pulmonary heart diseases RAVIN (obstructive sleep apnea) Obstructive sleep apnea (adult) (pediatric) Mild persistent asthma without complication Unspecified asthma IPMN (intraductal papillary mucinous neoplasm) Neoplasm of unspecified nature of digestive system Adjustment disorder with depressed mood Lung nodules Other nonspecific abnormal finding of lung field Gastroesophageal reflux disease without esophagitis Esophageal reflux Irritable bowel syndrome with diarrhea Irritable bowel syndrome Urge incontinence Obesity, Class I, BMI 30-34.9 Obesity, unspecified Preoperative examination- Primary Preoperative examination, unspecified Infection of prosthetic joint, initial encounter ([facility]) Urinary frequency Myalgia Mylagia and myositis, unspecified Lung nodules Other nonspecific abnormal finding of lung field Mild persistent asthma without complication Unspecified asthma SOB (shortness of breath) Shortness of breath Obstructive sleep apnea Obstructive sleep apnea (adult) (pediatric) Mild pulmonary hypertension (HCC) Other chronic pulmonary heart diseases Mixed hyperlipidemia Non-rheumatic mitral regurgitation Mitral valve disorders IPMN (intraductal papillary mucinous neoplasm) Neoplasm of unspecified nature of digestive system Gastroesophageal reflux disease with esophagitis without hemorrhage Irritable bowel syndrome with diarrhea Irritable bowel syndrome Urge incontinence Iron deficiency anemia, unspecified iron deficiency anemia type Adjustment disorder with depressed mood Lumbar radiculopathy- Primary Thoracic or lumbosacral neuritis or radiculitis, unspecified Lumbar radiculopathy Thoracic or lumbosacral neuritis or radiculitis, unspecified [facility]* Diagnosis ANXIETY STATE NOS- Primary Anxiety state, unspecified INT HEMORRHOID W/O COMPL Internal hemorrhoids without mention of complication HYPERLIPIDEMIA NEC/NOS Other and unspecified hyperlipidemia GERD (gastroesophageal reflux disease) Esophageal reflux Esophageal reflux Pre-operative examination- Primary Preoperative examination, unspecified Primary osteoarthritis of left knee Primary localized osteoarthrosis, lower leg Left knee pain, unspecified chronicity Mixed hyperlipidemia Non-rheumatic mitral regurgitation Mitral valve disorders Mild pulmonary hypertension (HCC) Other chronic pulmonary heart diseases RAVIN (obstructive sleep apnea) Obstructive sleep apnea (adult) (pediatric) Mild persistent asthma without complication Unspecified asthma IPMN (intraductal papillary mucinous neoplasm) Neoplasm of unspecified nature of digestive system Adjustment disorder with depressed mood Lung nodules Other nonspecific abnormal finding of lung field Gastroesophageal reflux disease without esophagitis Esophageal reflux Irritable bowel syndrome with diarrhea Irritable bowel syndrome Urge incontinence Obesity, Class I, BMI 30-34.9 Obesity, unspecified Preoperative examination- Primary Preoperative examination, unspecified Infection of prosthetic joint, initial encounter ([facility]) Urinary frequency Myalgia Mylagia and myositis, unspecified Lung nodules Other nonspecific abnormal finding of lung field Mild persistent asthma without complication Unspecified asthma SOB (shortness of breath) Shortness of breath Obstructive sleep apnea Obstructive sleep apnea (adult) (pediatric) Mild pulmonary hypertension (HCC) Other chronic pulmonary heart diseases Mixed hyperlipidemia Non-rheumatic mitral regurgitation Mitral valve disorders IPMN (intraductal papillary mucinous neoplasm) Neoplasm of unspecified nature of digestive system Gastroesophageal reflux disease with esophagitis without hemorrhage Irritable bowel syndrome with diarrhea Irritable bowel syndrome Urge incontinence Iron deficiency anemia, unspecified iron deficiency anemia type Adjustment disorder with depressed mood Pre-operative examination- Primary Preoperative examination, unspecified 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) Mixed hyperlipidemia Mild pulmonary hypertension (HCC) Other chronic pulmonary heart diseases Non-rheumatic mitral regurgitation Mitral valve disorders Mild persistent asthma without complication Unspecified asthma Obstructive sleep apnea Obstructive sleep apnea (adult) (pediatric) SOB (shortness of breath) Shortness of breath BPPV (benign paroxysmal positional vertigo), unspecified laterality Gastroesophageal reflux disease with esophagitis without hemorrhage Anxiety and depression Dysthymic disorder S/P total knee arthroplasty, left Chronic bilateral low back pain, unspecified whether sciatica present Stage 3b chronic kidney disease (HCC) Subareolar mass of left breast Intraductal papilloma of left breast * Assessment & Plan Note - Wilfrido Apodaca, WATER MECH[employer]IC.R[employer]OLTER OPERATOR - 08/03/2024 1:04 PM EST Associated Problem(s): Stage 3b chronic kidney disease (HCC) Assessment: Creatinine Date Value Ref Range Status 07/31/2024 1.45 (H) 0.58 - 0.96 mg/dL Final 04/03/2024 1.21 (H) 0.58 - 0.96 mg/dL Final 03/15/2023 1.19 (H) 0.58 - 0.96 mg/dL Final 01/02/2022 1.06 (H) 0.58 - 0.96 mg/dL Final * Assessment & Plan Note - Wilfrido Apodaca APRN.CNP - 08/03/2024 1:02 PM EST Associated Problem(s): Chronic bilateral low back pain Assessment: following pain management, receiving injections * Assessment & Plan Note - Wilfrido Apodaca APRN.CNP - 08/03/2024 12:59 PM EST Associated Problem(s): S/P total knee arthroplasty, left Assessment: c/b infection, spacer in place, following [facility] ortho 12/10/2023 Dr. Calderon Updated Imaging: Well-appearing spacer with potentially some signs of loosening Assessment and Plan: I numbness discussion with Cheryl about her left knee today. Her spacer is functioning well for spacer, but is not as stable as a regular knee replacement. She has substantial spine difficulty, and she has numbness and tingling all the way to her foot. She should see a spine provider before making adecision about revision arthroplasty. In the interim we should get ESR, CRP, and an aspiration of the knee to make sure there is no residual infection. We discussed that surgery for the knee would amaya place a more constraining, total stabilized knee replacement. This would likely improve some of her pain symptoms and give her more stability. It is unpredictable the exact extent of improvement she would have, and it is possible she would always have some residual pain from multiple knee operations. She will get the above workup and then follow-up in about 2 months. I have also given her a knee brace today to help with the stability. * Assessment & Plan Note - Wilfrido Apodaca APRN.CNP - 08/03/2024 12:59 PM EST Associated Problem(s): Anxiety and depression Assessment: stable on rx per pt * Assessment & Plan Note - Wilfrido Apodaca APRN.CNP - 08/03/2024 12:57 PM EST Associated Problem(s): GERD (gastroesophageal reflux disease) Assessment: Symptoms currently stable on Rx. * Assessment & Plan Note - Wilfrido Apodaca APRN.CNP - 08/03/2024 12:57 PM EST Associated Problem(s): BPPV (benign paroxysmal positional vertigo), unspecified laterality Assessment: rx as needed * Assessment & Plan Note - Wilfrido Apodaca APRN.CNP - 08/03/2024 12:57 PM EST Associated Problem(s): SOB (shortness of breath) Assessment: Chronic and unchanged per patient. SOB also due to limited mobility/joint pain per patient. Negative stress test in 2019, negative chest CTA 03/2021. Most likely multi-factorial per pulmonology. * Assessment & Plan Note - Wilfrido Apodaca APRN.CNP - 08/03/2024 12:56 PM EST Associated Problem(s): Obstructive sleep apnea Assessment: Currently compliant with CPAP. * Assessment & Plan Note - Wilfrido Apodaca APRN.CNP - 08/03/2024 12:56 PM EST Associated Problem(s): Mild persistent asthma without complication Assessment: Using PRN Albuterol inhaler * Assessment & Plan Note - Wilfrido Apodaca APRN.CNP - 08/03/2024 12:56 PM EST Associated Problem(s): Non-rheumatic mitral regurgitation Assessment: trace, EF 63% 02/2023 echo * Assessment & Plan Note - Wilfrido Apodaca APRN.CNP - 08/03/2024 12:53 PM EST Associated Problem(s): Mild pulmonary hypertension (HCC) Assessment: hx mild pHTN 2020 echo but last echo 2022 shows normal RSVP, following with pulmonary * Assessment & Plan Note - Wilfrido Apodaca APRN.CNP - 08/03/2024 12:53 PM EST Associated Problem(s): Hyperlipidemia Assessment: c/w statin * Assessment & Plan Note - Wilfrido Apodaca APRN.CNP - 08/03/2024 12:53 PM EST Associated Problem(s): 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) Assessment: , 2022 echo results below AORTA The visualized aorta is normal in size. Measurements - Mid ascending aorta 3.1 cm. [facility] Diagnosis ANXIETY STATE NOS- Primary Anxiety state, unspecified INT HEMORRHOID W/O COMPL Internal hemorrhoids without mention of complication HYPERLIPIDEMIA NEC/NOS Other and unspecified hyperlipidemia GERD (gastroesophageal reflux disease) Esophageal reflux Esophageal reflux Pre-operative examination- Primary Preoperative examination, unspecified Primary osteoarthritis of left knee Primary localized osteoarthrosis, lower leg Left knee pain, unspecified chronicity Mixed hyperlipidemia Non-rheumatic mitral regurgitation Mitral valve disorders Mild pulmonary hypertension (HCC) Other chronic pulmonary heart diseases RAVIN (obstructive sleep apnea) Obstructive sleep apnea (adult) (pediatric) Mild persistent asthma without complication Unspecified asthma IPMN (intraductal papillary mucinous neoplasm) Neoplasm of unspecified nature of digestive system Adjustment disorder with depressed mood Lung nodules Other nonspecific abnormal finding of lung field Gastroesophageal reflux disease without esophagitis Esophageal reflux Irritable bowel syndrome with diarrhea Irritable bowel syndrome Urge incontinence Obesity, Class I, BMI 30-34.9 Obesity, unspecified Preoperative examination- Primary Preoperative examination, unspecified Infection of prosthetic joint, initial encounter ([facility]) Urinary frequency Myalgia Mylagia and myositis, unspecified Lung nodules Other nonspecific abnormal finding of lung field Mild persistent asthma without complication Unspecified asthma SOB (shortness of breath) Shortness of breath Obstructive sleep apnea Obstructive sleep apnea (adult) (pediatric) Mild pulmonary hypertension (HCC) Other chronic pulmonary heart diseases Mixed hyperlipidemia Non-rheumatic mitral regurgitation Mitral valve disorders IPMN (intraductal papillary mucinous neoplasm) Neoplasm of unspecified nature of digestive system Gastroesophageal reflux disease with esophagitis without hemorrhage Irritable bowel syndrome with diarrhea Irritable bowel syndrome Urge incontinence Iron deficiency anemia, unspecified iron deficiency anemia type Adjustment disorder with depressed mood Subareolar mass of left breast- Primary Intraductal papilloma of left breast Pre-operative examination- Primary Preoperative examination, unspecified 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) Mixed hyperlipidemia Mild pulmonary hypertension (HCC) Other chronic pulmonary heart diseases Non-rheumatic mitral regurgitation Mitral valve disorders Mild persistent asthma without complication Unspecified asthma Obstructive sleep apnea Obstructive sleep apnea (adult) (pediatric) SOB (shortness of breath) Shortness of breath BPPV (benign paroxysmal positional vertigo), unspecified laterality Gastroesophageal reflux disease with esophagitis without hemorrhage Anxiety and depression Dysthymic disorder S/P total knee arthroplasty, left Chronic bilateral low back pain, unspecified whether sciatica present Stage 3b chronic kidney disease (HCC) [facility] Diagnosis ANXIETY STATE NOS- Primary Anxiety state, unspecified INT HEMORRHOID W/O COMPL Internal hemorrhoids without mention of complication HYPERLIPIDEMIA NEC/NOS Other and unspecified hyperlipidemia GERD (gastroesophageal reflux disease) Esophageal reflux Esophageal reflux Pre-operative examination- Primary Preoperative examination, unspecified Primary osteoarthritis of left knee Primary localized osteoarthrosis, lower leg Left knee pain, unspecified chronicity Mixed hyperlipidemia Non-rheumatic mitral regurgitation Mitral valve disorders Mild pulmonary hypertension (HCC) Other chronic pulmonary heart diseases RAVIN (obstructive sleep apnea) Obstructive sleep apnea (adult) (pediatric) Mild persistent asthma without complication Unspecified asthma IPMN (intraductal papillary mucinous neoplasm) Neoplasm of unspecified nature of digestive system Adjustment disorder with depressed mood Lung nodules Other nonspecific abnormal finding of lung field Gastroesophageal reflux disease without esophagitis Esophageal reflux Irritable bowel syndrome with diarrhea Irritable bowel syndrome Urge incontinence Obesity, Class I, BMI 30-34.9 Obesity, unspecified Preoperative examination- Primary Preoperative examination, unspecified Infection of prosthetic joint, initial encounter ([facility]) Urinary frequency Myalgia Mylagia and myositis, unspecified Lung nodules Other nonspecific abnormal finding of lung field Mild persistent asthma without complication Unspecified asthma SOB (shortness of breath) Shortness of breath Obstructive sleep apnea Obstructive sleep apnea (adult) (pediatric) Mild pulmonary hypertension (HCC) Other chronic pulmonary heart diseases Mixed hyperlipidemia Non-rheumatic mitral regurgitation Mitral valve disorders IPMN (intraductal papillary mucinous neoplasm) Neoplasm of unspecified nature of digestive system Gastroesophageal reflux disease with esophagitis without hemorrhage Irritable bowel syndrome with diarrhea Irritable bowel syndrome Urge incontinence Iron deficiency anemia, unspecified iron deficiency anemia type Adjustment disorder with depressed mood Pre-operative examination- Primary Preoperative examination, unspecified 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) Mixed hyperlipidemia Mild pulmonary hypertension (HCC) Other chronic pulmonary heart diseases Non-rheumatic mitral regurgitation Mitral valve disorders Mild persistent asthma without complication Unspecified asthma Obstructive sleep apnea Obstructive sleep apnea (adult) (pediatric) SOB (shortness of breath) Shortness of breath BPPV (benign paroxysmal positional vertigo), unspecified laterality Gastroesophageal reflux disease with esophagitis without hemorrhage Anxiety and depression Dysthymic disorder S/P total knee arthroplasty, left Chronic bilateral low back pain, unspecified whether sciatica present Stage 3b chronic kidney disease (HCC) Subareolar mass of left breast- Primary Intraductal papilloma of left breast S/P lumpectomy, left breast Other postprocedural status [facility] Diagnosis ANXIETY STATE NOS- Primary Anxiety state, unspecified INT HEMORRHOID W/O COMPL Internal hemorrhoids without mention of complication HYPERLIPIDEMIA NEC/NOS Other and unspecified hyperlipidemia GERD (gastroesophageal reflux disease) Esophageal reflux Esophageal reflux Pre-operative examination- Primary Preoperative examination, unspecified Primary osteoarthritis of left knee Primary localized osteoarthrosis, lower leg Left knee pain, unspecified chronicity Mixed hyperlipidemia Non-rheumatic mitral regurgitation Mitral valve disorders Mild pulmonary hypertension (HCC) Other chronic pulmonary heart diseases RAVIN (obstructive sleep apnea) Obstructive sleep apnea (adult) (pediatric) Mild persistent asthma without complication Unspecified asthma IPMN (intraductal papillary mucinous neoplasm) Neoplasm of unspecified nature of digestive system Adjustment disorder with depressed mood Lung nodules Other nonspecific abnormal finding of lung field Gastroesophageal reflux disease without esophagitis Esophageal reflux Irritable bowel syndrome with diarrhea Irritable bowel syndrome Urge incontinence Obesity, Class I, BMI 30-34.9 Obesity, unspecified Preoperative examination- Primary Preoperative examination, unspecified Infection of prosthetic joint, initial encounter ([facility]) Urinary frequency Myalgia Mylagia and myositis, unspecified Lung nodules Other nonspecific abnormal finding of lung field Mild persistent asthma without complication Unspecified asthma SOB (shortness of breath) Shortness of breath Obstructive sleep apnea Obstructive sleep apnea (adult) (pediatric) Mild pulmonary hypertension (HCC) Other chronic pulmonary heart diseases Mixed hyperlipidemia Non-rheumatic mitral regurgitation Mitral valve disorders IPMN (intraductal papillary mucinous neoplasm) Neoplasm of unspecified nature of digestive system Gastroesophageal reflux disease with esophagitis without hemorrhage Irritable bowel syndrome with diarrhea Irritable bowel syndrome Urge incontinence Iron deficiency anemia, unspecified iron deficiency anemia type Adjustment disorder with depressed mood Pre-operative examination- Primary Preoperative examination, unspecified 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) Mixed hyperlipidemia Mild pulmonary hypertension (HCC) Other chronic pulmonary heart diseases Non-rheumatic mitral regurgitation Mitral valve disorders Mild persistent asthma without complication Unspecified asthma Obstructive sleep apnea Obstructive sleep apnea (adult) (pediatric) SOB (shortness of breath) Shortness of breath BPPV (benign paroxysmal positional vertigo), unspecified laterality Gastroesophageal reflux disease with esophagitis without hemorrhage Anxiety and depression Dysthymic disorder S/P total knee arthroplasty, left Chronic bilateral low back pain, unspecified whether sciatica present Stage 3b chronic kidney disease ([facility]) Spinal stenosis of lumbar region with neurogenic claudication- Primary Spinal stenosis, lumbar region, with neurogenic claudication Radiculopathy, lumbar region Thoracic or lumbosacral neuritis or radiculitis, unspecified [facility] Diagnosis ANXIETY STATE NOS- Primary Anxiety state, unspecified INT HEMORRHOID W/O COMPL Internal hemorrhoids without mention of complication HYPERLIPIDEMIA NEC/NOS Other and unspecified hyperlipidemia GERD (gastroesophageal reflux disease) Esophageal reflux Esophageal reflux Pre-operative examination- Primary Preoperative examination, unspecified Primary osteoarthritis of left knee Primary localized osteoarthrosis, lower leg Left knee pain, unspecified chronicity Mixed hyperlipidemia Non-rheumatic mitral regurgitation Mitral valve disorders Mild pulmonary hypertension (HCC) Other chronic pulmonary heart diseases RAVIN (obstructive sleep apnea) Obstructive sleep apnea (adult) (pediatric) Mild persistent asthma without complication Unspecified asthma IPMN (intraductal papillary mucinous neoplasm) Neoplasm of unspecified nature of digestive system Adjustment disorder with depressed mood Lung nodules Other nonspecific abnormal finding of lung field Gastroesophageal reflux disease without esophagitis Esophageal reflux Irritable bowel syndrome with diarrhea Irritable bowel syndrome Urge incontinence Obesity, Class I, BMI 30-34.9 Obesity, unspecified Preoperative examination- Primary Preoperative examination, unspecified Infection of prosthetic joint, initial encounter ([facility]) Urinary frequency Myalgia Mylagia and myositis, unspecified Lung nodules Other nonspecific abnormal finding of lung field Mild persistent asthma without complication Unspecified asthma SOB (shortness of breath) Shortness of breath Obstructive sleep apnea Obstructive sleep apnea (adult) (pediatric) Mild pulmonary hypertension (HCC) Other chronic pulmonary heart diseases Mixed hyperlipidemia Non-rheumatic mitral regurgitation Mitral valve disorders IPMN (intraductal papillary mucinous neoplasm) Neoplasm of unspecified nature of digestive system Gastroesophageal reflux disease with esophagitis without hemorrhage Irritable bowel syndrome with diarrhea Irritable bowel syndrome Urge incontinence Iron deficiency anemia, unspecified iron deficiency anemia type Adjustment disorder with depressed mood Pre-operative examination- Primary Preoperative examination, unspecified 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) Mixed hyperlipidemia Mild pulmonary hypertension (HCC) Other chronic pulmonary heart diseases Non-rheumatic mitral regurgitation Mitral valve disorders Mild persistent asthma without complication Unspecified asthma Obstructive sleep apnea Obstructive sleep apnea (adult) (pediatric) SOB (shortness of breath) Shortness of breath BPPV (benign paroxysmal positional vertigo), unspecified laterality Gastroesophageal reflux disease with esophagitis without hemorrhage Anxiety and depression Dysthymic disorder S/P total knee arthroplasty, left Chronic bilateral low back pain, unspecified whether sciatica present Stage 3b chronic kidney disease (HCC) Pure hypercholesterolemia- Primary Non-rheumatic mitral regurgitation Mitral valve disorders Mild pulmonary hypertension (HCC) Other chronic pulmonary heart diseases Mild persistent asthma without complication Unspecified asthma Obstructive sleep apnea Obstructive sleep apnea (adult) (pediatric) Gastroesophageal reflux disease without esophagitis Esophageal reflux Stage 3b chronic kidney disease (HCC) Failure of total knee replacement, sequela Chronic midline low back pain with sciatica, sciatica laterality unspecified Screening for diabetes mellitus Vitamin D deficiency Unspecified vitamin D deficiency Acute maxillary sinusitis, recurrence not specified Valvular heart disease Endocarditis, valve unspecified, unspecified cause [facility] Diagnosis ANXIETY STATE NOS- Primary Anxiety state, unspecified INT HEMORRHOID W/O COMPL Internal hemorrhoids without mention of complication HYPERLIPIDEMIA NEC/NOS Other and unspecified hyperlipidemia GERD (gastroesophageal reflux disease) Esophageal reflux Esophageal reflux Pre-operative examination- Primary Preoperative examination, unspecified Primary osteoarthritis of left knee Primary localized osteoarthrosis, lower leg Left knee pain, unspecified chronicity Mixed hyperlipidemia Non-rheumatic mitral regurgitation Mitral valve disorders Mild pulmonary hypertension (HCC) Other chronic pulmonary heart diseases RAVIN (obstructive sleep apnea) Obstructive sleep apnea (adult) (pediatric) Mild persistent asthma without complication (HCC) Unspecified asthma IPMN (intraductal papillary mucinous neoplasm) Neoplasm of unspecified nature of digestive system Adjustment disorder with depressed mood Lung nodules Other nonspecific abnormal finding of lung field Gastroesophageal reflux disease without esophagitis Esophageal reflux Irritable bowel syndrome with diarrhea Irritable bowel syndrome Urge incontinence Obesity, Class I, BMI 30-34.9 Obesity, unspecified Preoperative examination- Primary Preoperative examination, unspecified Infection of prosthetic joint, initial encounter Urinary frequency Myalgia Mylagia and myositis, unspecified Lung nodules Other nonspecific abnormal finding of lung field Mild persistent asthma without complication (HCC) Unspecified asthma SOB (shortness of breath) Shortness of breath Obstructive sleep apnea Obstructive sleep apnea (adult) (pediatric) Mild pulmonary hypertension (HCC) Other chronic pulmonary heart diseases Mixed hyperlipidemia Non-rheumatic mitral regurgitation Mitral valve disorders IPMN (intraductal papillary mucinous neoplasm) Neoplasm of unspecified nature of digestive system Gastroesophageal reflux disease with esophagitis without hemorrhage Irritable bowel syndrome with diarrhea Irritable bowel syndrome Urge incontinence Iron deficiency anemia, unspecified iron deficiency anemia type Adjustment disorder with depressed mood Pre-operative examination- Primary Preoperative examination, unspecified 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 Mixed hyperlipidemia Mild pulmonary hypertension (HCC) Other chronic pulmonary heart diseases Non-rheumatic mitral regurgitation Mitral valve disorders Mild persistent asthma without complication (HCC) Unspecified asthma Obstructive sleep apnea Obstructive sleep apnea (adult) (pediatric) SOB (shortness of breath) Shortness of breath BPPV (benign paroxysmal positional vertigo), unspecified laterality Gastroesophageal reflux disease with esophagitis without hemorrhage Anxiety and depression Dysthymic disorder S/P total knee arthroplasty, left Chronic bilateral low back pain, unspecified whether sciatica present Stage 3b chronic kidney disease (HCC) Acute recurrent sinusitis, unspecified location- [facility] ANXIETY STATE NOS- Primary Anxiety state, unspecified INT HEMORRHOID W/O COMPL Internal hemorrhoids without mention of complication HYPERLIPIDEMIA NEC/NOS Other and unspecified hyperlipidemia GERD (gastroesophageal reflux disease) Esophageal reflux Esophageal reflux Pre-operative examination- Primary Preoperative examination, unspecified Primary osteoarthritis of left knee Primary localized osteoarthrosis, lower leg Left knee pain, unspecified chronicity Mixed hyperlipidemia Non-rheumatic mitral regurgitation Mitral valve disorders Mild pulmonary hypertension (HCC) Other chronic pulmonary heart diseases RAVIN (obstructive sleep apnea) Obstructive sleep apnea (adult) (pediatric) Mild persistent asthma without complication (HCC) Unspecified asthma IPMN (intraductal papillary mucinous neoplasm) Neoplasm of unspecified nature of digestive system Adjustment disorder with depressed mood Lung nodules Other nonspecific abnormal finding of lung field Gastroesophageal reflux disease without esophagitis Esophageal reflux Irritable bowel syndrome with diarrhea Irritable bowel syndrome Urge incontinence Obesity, Class I, BMI 30-34.9 Obesity, unspecified Preoperative examination- Primary Preoperative examination, unspecified Infection of prosthetic joint, initial encounter Urinary frequency Myalgia Mylagia and myositis, unspecified Lung nodules Other nonspecific abnormal finding of lung field Mild persistent asthma without complication (HCC) Unspecified asthma SOB (shortness of breath) Shortness of breath Obstructive sleep apnea Obstructive sleep apnea (adult) (pediatric) Mild pulmonary hypertension (HCC) Other chronic pulmonary heart diseases Mixed hyperlipidemia Non-rheumatic mitral regurgitation Mitral valve disorders IPMN (intraductal papillary mucinous neoplasm) Neoplasm of unspecified nature of digestive system Gastroesophageal reflux disease with esophagitis without hemorrhage Irritable bowel syndrome with diarrhea Irritable bowel syndrome Urge incontinence Iron deficiency anemia, unspecified iron deficiency anemia type Adjustment disorder with depressed mood Pre-operative examination- Primary Preoperative examination, unspecified 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 Mixed hyperlipidemia Mild pulmonary hypertension (HCC) Other chronic pulmonary heart diseases Non-rheumatic mitral regurgitation Mitral valve disorders Mild persistent asthma without complication (HCC) Unspecified asthma Obstructive sleep apnea Obstructive sleep apnea (adult) (pediatric) SOB (shortness of breath) Shortness of breath BPPV (benign paroxysmal positional vertigo), unspecified laterality Gastroesophageal reflux disease with esophagitis without hemorrhage Anxiety and depression Dysthymic disorder S/P total knee arthroplasty, left Chronic bilateral low back pain, unspecified whether sciatica present Stage 3b chronic kidney disease (HCC) Primary hypertension- Primary Unspecified essential hypertension Valvular heart disease Endocarditis, valve unspecified, unspecified cause [facility] Diagnosis ANXIETY STATE NOS- Primary Anxiety state, unspecified INT HEMORRHOID W/O COMPL Internal hemorrhoids without mention of complication HYPERLIPIDEMIA NEC/NOS Other and unspecified hyperlipidemia GERD (gastroesophageal reflux disease) Esophageal reflux Esophageal reflux Pre-operative examination- Primary Preoperative examination, unspecified Primary osteoarthritis of left knee Primary localized osteoarthrosis, lower leg Left knee pain, unspecified chronicity Mixed hyperlipidemia Non-rheumatic mitral regurgitation Mitral valve disorders Mild pulmonary hypertension (HCC) Other chronic pulmonary heart diseases RAVIN (obstructive sleep apnea) Obstructive sleep apnea (adult) (pediatric) Mild persistent asthma without complication (HCC) Unspecified asthma IPMN (intraductal papillary mucinous neoplasm) Neoplasm of unspecified nature of digestive system Adjustment disorder with depressed mood Lung nodules Other nonspecific abnormal finding of lung field Gastroesophageal reflux disease without esophagitis Esophageal reflux Irritable bowel syndrome with diarrhea Irritable bowel syndrome Urge incontinence Obesity, Class I, BMI 30-34.9 Obesity, unspecified Preoperative examination- Primary Preoperative examination, unspecified Infection of prosthetic joint, initial encounter Urinary frequency Myalgia Mylagia and myositis, unspecified Lung nodules Other nonspecific abnormal finding of lung field Mild persistent asthma without complication (HCC) Unspecified asthma SOB (shortness of breath) Shortness of breath Obstructive sleep apnea Obstructive sleep apnea (adult) (pediatric) Mild pulmonary hypertension (HCC) Other chronic pulmonary heart diseases Mixed hyperlipidemia Non-rheumatic mitral regurgitation Mitral valve disorders IPMN (intraductal papillary mucinous neoplasm) Neoplasm of unspecified nature of digestive system Gastroesophageal reflux disease with esophagitis without hemorrhage Irritable bowel syndrome with diarrhea Irritable bowel syndrome Urge incontinence Iron deficiency anemia, unspecified iron deficiency anemia type Adjustment disorder with depressed mood Pre-operative examination- Primary Preoperative examination, unspecified 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 Mixed hyperlipidemia Mild pulmonary hypertension (HCC) Other chronic pulmonary heart diseases Non-rheumatic mitral regurgitation Mitral valve disorders Mild persistent asthma without complication (HCC) Unspecified asthma Obstructive sleep apnea Obstructive sleep apnea (adult) (pediatric) SOB (shortness of breath) Shortness of breath BPPV (benign paroxysmal positional vertigo), unspecified laterality Gastroesophageal reflux disease with esophagitis without hemorrhage Anxiety and depression Dysthymic disorder S/P total knee arthroplasty, left Chronic bilateral low back pain, unspecified whether sciatica present Stage 3b chronic kidney disease (HCC) Herpes zoster without complication- Primary Herpes zoster without mention of complication [facility] Diagnosis ANXIETY STATE NOS- Primary Anxiety state, unspecified INT HEMORRHOID W/O COMPL Internal hemorrhoids without mention of complication HYPERLIPIDEMIA NEC/NOS Other and unspecified hyperlipidemia GERD (gastroesophageal reflux disease) Esophageal reflux Esophageal reflux Pre-operative examination- Primary Preoperative examination, unspecified Primary osteoarthritis of left knee Primary localized osteoarthrosis, lower leg Left knee pain, unspecified chronicity Mixed hyperlipidemia Non-rheumatic mitral regurgitation Mitral valve disorders Mild pulmonary hypertension (HCC) Other chronic pulmonary heart diseases RAVIN (obstructive sleep apnea) Obstructive sleep apnea (adult) (pediatric) Mild persistent asthma without complication (HCC) Unspecified asthma IPMN (intraductal papillary mucinous neoplasm) Neoplasm of unspecified nature of digestive system Adjustment disorder with depressed mood Lung nodules Other nonspecific abnormal finding of lung field Gastroesophageal reflux disease without esophagitis Esophageal reflux Irritable bowel syndrome with diarrhea Irritable bowel syndrome Urge incontinence Obesity, Class I, BMI 30-34.9 Obesity, unspecified Preoperative examination- Primary Preoperative examination, unspecified Infection of prosthetic joint, initial encounter Urinary frequency Myalgia Mylagia and myositis, unspecified Lung nodules Other nonspecific abnormal finding of lung field Mild persistent asthma without complication (HCC) Unspecified asthma SOB (shortness of breath) Shortness of breath Obstructive sleep apnea Obstructive sleep apnea (adult) (pediatric) Mild pulmonary hypertension (HCC) Other chronic pulmonary heart diseases Mixed hyperlipidemia Non-rheumatic mitral regurgitation Mitral valve disorders IPMN (intraductal papillary mucinous neoplasm) Neoplasm of unspecified nature of digestive system Gastroesophageal reflux disease with esophagitis without hemorrhage Irritable bowel syndrome with diarrhea Irritable bowel syndrome Urge incontinence Iron deficiency anemia, unspecified iron deficiency anemia type Adjustment disorder with depressed mood Pre-operative examination- Primary Preoperative examination, unspecified 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 Mixed hyperlipidemia Mild pulmonary hypertension (HCC) Other chronic pulmonary heart diseases Non-rheumatic mitral regurgitation Mitral valve disorders Mild persistent asthma without complication (HCC) Unspecified asthma Obstructive sleep apnea Obstructive sleep apnea (adult) (pediatric) SOB (shortness of breath) Shortness of breath BPPV (benign paroxysmal positional vertigo), unspecified laterality Gastroesophageal reflux disease with esophagitis without hemorrhage Anxiety and depression Dysthymic disorder S/P total knee arthroplasty, left Chronic bilateral low back pain, unspecified whether sciatica present Stage 3b chronic kidney disease (HCC) Herpes zoster without complication Herpes zoster without mention of complication [facility] ANXIETY STATE NOS- Primary Anxiety state, unspecified INT HEMORRHOID W/O COMPL Internal hemorrhoids without mention of complication HYPERLIPIDEMIA NEC/NOS Other and unspecified hyperlipidemia GERD (gastroesophageal reflux disease) Esophageal reflux Esophageal reflux Pre-operative examination- Primary Preoperative examination, unspecified Primary osteoarthritis of left knee Primary localized osteoarthrosis, lower leg Left knee pain, unspecified chronicity Mixed hyperlipidemia Non-rheumatic mitral regurgitation Mitral valve disorders Mild pulmonary hypertension (HCC) Other chronic pulmonary heart diseases RAVIN (obstructive sleep apnea) Obstructive sleep apnea (adult) (pediatric) Mild persistent asthma without complication (HCC) Unspecified asthma IPMN (intraductal papillary mucinous neoplasm) Neoplasm of unspecified nature of digestive system Adjustment disorder with depressed mood Lung nodules Other nonspecific abnormal finding of lung field Gastroesophageal reflux disease without esophagitis Esophageal reflux Irritable bowel syndrome with diarrhea Irritable bowel syndrome Urge incontinence Obesity, Class I, BMI 30-34.9 Obesity, unspecified Preoperative examination- Primary Preoperative examination, unspecified Infection of prosthetic joint, initial encounter Urinary frequency Myalgia Mylagia and myositis, unspecified Lung nodules Other nonspecific abnormal finding of lung field Mild persistent asthma without complication (HCC) Unspecified asthma SOB (shortness of breath) Shortness of breath Obstructive sleep apnea Obstructive sleep apnea (adult) (pediatric) Mild pulmonary hypertension (HCC) Other chronic pulmonary heart diseases Mixed hyperlipidemia Non-rheumatic mitral regurgitation Mitral valve disorders IPMN (intraductal papillary mucinous neoplasm) Neoplasm of unspecified nature of digestive system Gastroesophageal reflux disease with esophagitis without hemorrhage Irritable bowel syndrome with diarrhea Irritable bowel syndrome Urge incontinence Iron deficiency anemia, unspecified iron deficiency anemia type Adjustment disorder with depressed mood Pre-operative examination- Primary Preoperative examination, unspecified 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 Mixed hyperlipidemia Mild pulmonary hypertension (HCC) Other chronic pulmonary heart diseases Non-rheumatic mitral regurgitation Mitral valve disorders Mild persistent asthma without complication (HCC) Unspecified asthma Obstructive sleep apnea Obstructive sleep apnea (adult) (pediatric) SOB (shortness of breath) Shortness of breath BPPV (benign paroxysmal positional vertigo), unspecified laterality Gastroesophageal reflux disease with esophagitis without hemorrhage Anxiety and depression Dysthymic disorder S/P total knee arthroplasty, left Chronic bilateral low back pain, unspecified whether sciatica present Stage 3b chronic kidney disease (HCC) Anxiety with depression- Primary Obstructive sleep apnea Obstructive sleep apnea (adult) (pediatric) [facility] Diagnosis ANXIETY STATE NOS- Primary Anxiety state, unspecified INT HEMORRHOID W/O COMPL Internal hemorrhoids without mention of complication HYPERLIPIDEMIA NEC/NOS Other and unspecified hyperlipidemia GERD (gastroesophageal reflux disease) Esophageal reflux Esophageal reflux Pre-operative examination- Primary Preoperative examination, unspecified Primary osteoarthritis of left knee Primary localized osteoarthrosis, lower leg Left knee pain, unspecified chronicity Mixed hyperlipidemia Non-rheumatic mitral regurgitation Mitral valve disorders Mild pulmonary hypertension (HCC) Other chronic pulmonary heart diseases RAVIN (obstructive sleep apnea) Obstructive sleep apnea (adult) (pediatric) Mild persistent asthma without complication (HCC) Unspecified asthma IPMN (intraductal papillary mucinous neoplasm) Neoplasm of unspecified nature of digestive system Adjustment disorder with depressed mood Lung nodules Other nonspecific abnormal finding of lung field Gastroesophageal reflux disease without esophagitis Esophageal reflux Irritable bowel syndrome with diarrhea Irritable bowel syndrome Urge incontinence Obesity, Class I, BMI 30-34.9 Obesity, unspecified Preoperative examination- Primary Preoperative examination, unspecified Infection of prosthetic joint, initial encounter Urinary frequency Myalgia Mylagia and myositis, unspecified Lung nodules Other nonspecific abnormal finding of lung field Mild persistent asthma without complication (HCC) Unspecified asthma SOB (shortness of breath) Shortness of breath Obstructive sleep apnea Obstructive sleep apnea (adult) (pediatric) Mild pulmonary hypertension (HCC) Other chronic pulmonary heart diseases Mixed hyperlipidemia Non-rheumatic mitral regurgitation Mitral valve disorders IPMN (intraductal papillary mucinous neoplasm) Neoplasm of unspecified nature of digestive system Gastroesophageal reflux disease with esophagitis without hemorrhage Irritable bowel syndrome with diarrhea Irritable bowel syndrome Urge incontinence Iron deficiency anemia, unspecified iron deficiency anemia type Adjustment disorder with depressed mood Pre-operative examination- Primary Preoperative examination, unspecified 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 Mixed hyperlipidemia Mild pulmonary hypertension (HCC) Other chronic pulmonary heart diseases Non-rheumatic mitral regurgitation Mitral valve disorders Mild persistent asthma without complication (HCC) Unspecified asthma Obstructive sleep apnea Obstructive sleep apnea (adult) (pediatric) SOB (shortness of breath) Shortness of breath BPPV (benign paroxysmal positional vertigo), unspecified laterality Gastroesophageal reflux disease with esophagitis without hemorrhage Anxiety and depression Dysthymic disorder S/P total knee arthroplasty, left Chronic bilateral low back pain, unspecified whether sciatica present Stage 3b chronic kidney disease (HCC) Intraductal papilloma of left breast S/P lumpectomy, left breast Other postprocedural status [facility] Diagnosis ANXIETY STATE NOS- Primary Anxiety state, unspecified INT HEMORRHOID W/O COMPL Internal hemorrhoids without mention of complication HYPERLIPIDEMIA NEC/NOS Other and unspecified hyperlipidemia GERD (gastroesophageal reflux disease) Esophageal reflux Esophageal reflux Pre-operative examination- Primary Preoperative examination, unspecified Primary osteoarthritis of left knee Primary localized osteoarthrosis, lower leg Left knee pain, unspecified chronicity Mixed hyperlipidemia Non-rheumatic mitral regurgitation Mitral valve disorders Mild pulmonary hypertension (HCC) Other chronic pulmonary heart diseases RAVIN (obstructive sleep apnea) Obstructive sleep apnea (adult) (pediatric) Mild persistent asthma without complication (HCC) Unspecified asthma IPMN (intraductal papillary mucinous neoplasm) Neoplasm of unspecified nature of digestive system Adjustment disorder with depressed mood Lung nodules Other nonspecific abnormal finding of lung field Gastroesophageal reflux disease without esophagitis Esophageal reflux Irritable bowel syndrome with diarrhea Irritable bowel syndrome Urge incontinence Obesity, Class I, BMI 30-34.9 Obesity, unspecified Preoperative examination- Primary Preoperative examination, unspecified Infection of prosthetic joint, initial encounter Urinary frequency Myalgia Mylagia and myositis, unspecified Lung nodules Other nonspecific abnormal finding of lung field Mild persistent asthma without complication (HCC) Unspecified asthma SOB (shortness of breath) Shortness of breath Obstructive sleep apnea Obstructive sleep apnea (adult) (pediatric) Mild pulmonary hypertension (HCC) Other chronic pulmonary heart diseases Mixed hyperlipidemia Non-rheumatic mitral regurgitation Mitral valve disorders IPMN (intraductal papillary mucinous neoplasm) Neoplasm of unspecified nature of digestive system Gastroesophageal reflux disease with esophagitis without hemorrhage Irritable bowel syndrome with diarrhea Irritable bowel syndrome Urge incontinence Iron deficiency anemia, unspecified iron deficiency anemia type Adjustment disorder with depressed mood Pre-operative examination- Primary Preoperative examination, unspecified 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 Mixed hyperlipidemia Mild pulmonary hypertension (HCC) Other chronic pulmonary heart diseases Non-rheumatic mitral regurgitation Mitral valve disorders Mild persistent asthma without complication (HCC) Unspecified asthma Obstructive sleep apnea Obstructive sleep apnea (adult) (pediatric) SOB (shortness of breath) Shortness of breath BPPV (benign paroxysmal positional vertigo), unspecified laterality Gastroesophageal reflux disease with esophagitis without hemorrhage Anxiety and depression Dysthymic disorder S/P total knee arthroplasty, left Chronic bilateral low back pain, unspecified whether sciatica present Stage 3b chronic kidney disease (HCC) Myalgia- Primary Mylagia and myositis, unspecified Gastroesophageal reflux disease without esophagitis Esophageal reflux Primary hypertension Unspecified essential hypertension Mixed hyperlipidemia Migraine without aura, not intractable, without status migrainosus Hot flashes Symptomatic menopausal or female climacteric states Seasonal allergic rhinitis, unspecified trigger Prediabetes Other abnormal glucose Stage 3b chronic kidney disease (HCC) Bilateral impacted cerumen Impacted cerumen [facility] Diagnosis ANXIETY STATE NOS- Primary Anxiety state, unspecified INT HEMORRHOID W/O COMPL Internal hemorrhoids without mention of complication HYPERLIPIDEMIA NEC/NOS Other and unspecified hyperlipidemia GERD (gastroesophageal reflux disease) Esophageal reflux Esophageal reflux Pre-operative examination- Primary Preoperative examination, unspecified Primary osteoarthritis of left knee Primary localized osteoarthrosis, lower leg Left knee pain, unspecified chronicity Mixed hyperlipidemia Non-rheumatic mitral regurgitation Mitral valve disorders Mild pulmonary hypertension (HCC) Other chronic pulmonary heart diseases RAVIN (obstructive sleep apnea) Obstructive sleep apnea (adult) (pediatric) Mild persistent asthma without complication (HCC) Unspecified asthma IPMN (intraductal papillary mucinous neoplasm) Neoplasm of unspecified nature of digestive system Adjustment disorder with depressed mood Lung nodules Other nonspecific abnormal finding of lung field Gastroesophageal reflux disease without esophagitis Esophageal reflux Irritable bowel syndrome with diarrhea Irritable bowel syndrome Urge incontinence Obesity, Class I, BMI 30-34.9 Obesity, unspecified Preoperative examination- Primary Preoperative examination, unspecified Infection of prosthetic joint, initial encounter Urinary frequency Myalgia Mylagia and myositis, unspecified Lung nodules Other nonspecific abnormal finding of lung field Mild persistent asthma without complication (HCC) Unspecified asthma SOB (shortness of breath) Shortness of breath Obstructive sleep apnea Obstructive sleep apnea (adult) (pediatric) Mild pulmonary hypertension (HCC) Other chronic pulmonary heart diseases Mixed hyperlipidemia Non-rheumatic mitral regurgitation Mitral valve disorders IPMN (intraductal papillary mucinous neoplasm) Neoplasm of unspecified nature of digestive system Gastroesophageal reflux disease with esophagitis without hemorrhage Irritable bowel syndrome with diarrhea Irritable bowel syndrome Urge incontinence Iron deficiency anemia, unspecified iron deficiency anemia type Adjustment disorder with depressed mood Pre-operative examination- Primary Preoperative examination, unspecified 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 Mixed hyperlipidemia Mild pulmonary hypertension (HCC) Other chronic pulmonary heart diseases Non-rheumatic mitral regurgitation Mitral valve disorders Mild persistent asthma without complication (HCC) Unspecified asthma Obstructive sleep apnea Obstructive sleep apnea (adult) (pediatric) SOB (shortness of breath) Shortness of breath BPPV (benign paroxysmal positional vertigo), unspecified laterality Gastroesophageal reflux disease with esophagitis without hemorrhage Anxiety and depression Dysthymic disorder S/P total knee arthroplasty, left Chronic bilateral low back pain, unspecified whether sciatica present Stage 3b chronic kidney disease (HCC) Cervical radiculopathy- Primary Brachial neuritis or radiculitis nos documented in this encounter [facility] for referral (narrative)* Diagnostic Procedure Only (Routine) - Closed Specialty Diagnoses / Procedures Referred By Patel baker Referred To Contact [facility] Diagnoses IPMN (intraductal papillary mucinous neoplasm) Procedures BLADIMIR SCREENING SCREENING MAMMOGRAPHY BI 2-VIEW BREAST INC CAD Layla Bellamy PA-C [address] [place] [address] [facility] [address] [place] [address] Referral ID Status Reason Start Date Expiration Date V isits Requested Visits Authorized [id number] Closed Auto-Generate d Referral 01/08/2022 02/07/2023 1 1 [facility] for referral (narrative)* Diagnostic Procedure Only (Routine) - Authorized Specialty Diagnoses / Procedures Referred By Patel baker Referred To Contact [facility] Diagnoses Inconclusive mammogram Procedures US BREAST LTD RT US BREAST UNI REAL TIME WITH IMAGE LIMITED Layla Bellamy PA-C [address] [place] [address] [facility] [email or web address] [address] Referral ID Status Reason Start Date Expiration Date Visits Requested Visits Authorized [id number] Authorized Auto-Generat ed Referral 02/19/2022 03/21/2023 1 1 * Diagnostic Procedure Only (Routine) - Authorized Specialty Diagnoses / Procedures Referred By Patel t Referred To Contact [facility] Diagnoses Inconclusive mammogram Procedures BLADIMIR DIAGNOSTIC RT DIAGNOSTIC MAMMOGRAPHY COMPUTER-AIDED DETCJ UNI Layla Bellamy PA-C [address] [place] [address] [facility] Imaging [address] [place] [address] Referral ID Status Reason Start Date Expiration Date Visits Requested Visits Authorized [id number] Authorized Auto-Generat ed Referral 02/19/2022 03/21/2023 1 1 [facility] for referral (narrative)* Diagnostic Procedure Only (Routine) - Closed Specialty Diagnoses / Procedures Referred By Contac t Referred To Contact [facility] Diagnoses Inconclusive mammogram Procedures US BREAST LTD RT US BREAST UNI REAL TIME WITH IMAGE LIMITED Layla Bellamy PA-C [address] [place] [address] Br Imaging [address] [place] [address] Referral ID Status Reason Start Date Expiration Date V isits Requested Visits Authorized [id number] Closed Auto-Generate d Referral 02/19/2022 03/21/2023 1 1 * Diagnostic Procedure Only (Routine) - Closed Specialty Diagnoses / Procedures Referred By Contac t Referred To Contact [facility] Diagnoses Inconclusive mammogram Procedures BLADIMIR DIAGNOSTIC RT DIAGNOSTIC MAMMOGRAPHY COMPUTER-AIDED DETCJ UNI Layla Bellamy PA-C [address] [place] [address] Br Imaging [address] [place] [address] Referral ID Status Reason Start Date Expiration Date V isits Requested Visits Authorized [id number] Closed Auto-Generate d Referral 02/19/2022 03/21/2023 1 1 [facility] for referral (narrative)* Diagnostic Procedure Only (Routine) - Pending Review Specialty Diagnoses / Procedures Referred By Contac t Referred To Contact [facility] Diagnoses Abnormal mammogram Procedures US BREAST LTD RT US BREAST UNI REAL TIME WITH IMAGE LIMITED Matthias Dias MD [address] [place] [address] [facility] Imaging [address] [place] [address] Referral ID Status Reason Start Date Expiration Date Visits Requested Visits Authorized [id number] Pending Review Auto-Generat ed Referral 03/28/2022 04/27/2023 1 1 * Diagnostic Procedure Only (Routine) - Authorized Specialty Diagnoses / Procedures Referred By Patel t Referred To Contact [facility] Diagnoses Abnormal mammogram Procedures BLADIMIR DIAGNOSTIC RT DIAGNOSTIC MAMMOGRAPHY COMPUTER-AIDED DETCJ UNI Matthias Dias MD [address] [place] [address] [facility] Imaging [address] [place] [address] Referral ID Status Reason Start Date Expiration Date Visits Requested Visits Authorized [id number] Authorized Auto-Generat ed Referral 03/28/2022 04/27/2023 1 1 [facility] for referral (narrative)* Outpatient Procedure (Routine) - Closed Specialty Diagnoses / Procedures [facility] Diagnoses Primary hypertension Procedures ECG COMPLETE ECG ROUTINE ECG W/LEAST 12 LDS W/I&R Agueda Jc, WATER MECHANIC.ROOF BOLTER OPERATOR [address] [place] [address] [facility] [place] [address] [place] [address] Referral ID Status Reason Start Date Expiration Date V isits Requested Visits Authorized [id number] Closed Auto-Generate d Referral 07/04/2022 07/04/2023 1 1 [facility] for referral (narrative)* Diagnostic Procedure Only (Routine) - Pending Review Specialty Diagnoses / Procedures [facility] To Contact [facility] Diagnoses Abnormal mammogram Procedures BLADIMIR DIAGNOSTIC BILAT DIAGNOSTIC MAMMOGRAPHY COMPUTER-AIDED DETCJ Matthias Helm MD [address] [place] [address] [facility] Imaging [address] [place] [address] Referral ID Status Reason Start Date Expiration Date Visits Requested Visits Authorized [id number] Pending Review Auto-Generat ed Referral 04/02/2023 11/02/2023 1 1 [facility] for referral (narrative)* Outpatient Procedure (Routine) - Pending Review Specialty Diagnoses / Procedures [facility] Referred To Contact [facility] Diagnoses Non-rheumatic mitral regurgitation Primary hypertension Mixed hyperlipidemia RAVIN (obstructive sleep apnea) Mild pulmonary hypertension (HCC) Hyperlipidemia, mixed Procedures ECHO ECHO TTHRC R-T 2D W/WOM-MODE COMPL SPEC&COLR D Beck Alejandra DO [facility] [address] [address] [facility] [place] [address] [place] [address] Referral ID Status Reason Start Date Expiration Date Visits Requested Visits Authorized [id number] Pending Review Auto-Generat ed Referral 01/22/2023 01/22/2024 1 1 [facility] for referral (narrative)* Diagnostic Procedure Only (Routine) - Closed Specialty Diagnoses / Procedures [facility] Referred To Contact [facility] Diagnoses Abnormal mammogram Procedures BLADIMIR DIAGNOSTIC RT DIAGNOSTIC MAMMOGRAPHY COMPUTER-AIDED DETCJ Matthias Ceo MD [address] [place] [address] [facility] [address] [place] [address] Referral ID Status Reason Start Date Expiration Date V isits Requested Visits Authorized [id number] Closed Auto-Generate d Referral 03/28/2022 04/27/2023 1 1 [facility] for referral (narrative)* Diagnostic Procedure Only (Routine) - Closed Specialty Diagnoses / Procedures [facility] To Contact [facility] Diagnoses Abnormal mammogram Procedures BLADIMIR DIAGNOSTIC BILAT DIAGNOSTIC MAMMOGRAPHY COMPUTER-AIDED DETCJ Matthias Helm MD [address] [place] [address] [facility] [address] [place] [address] Referral ID Status Reason Start Date Expiration Date V isits Requested Visits Authorized [id number] Closed Auto-Generate d Referral 04/02/2023 11/02/2023 1 1 [facility] for referral (narrative)* Diagnostic Procedure Only (Routine) - Pending Review Specialty Diagnoses / Procedures Referred By Contac t Referred To Contact XR IMAGING Diagnoses Radiculopathy, lumbar region Procedures XR LUMBAR MOTION 4V AP/LAT/ FLEX/EXT RADEX SPINE LUMBOSACRAL MINIMUM 4 VIEWS Salma Medina PA-C [address] [place] [id number] [place] [address] Referral ID Status Reason Start Date Expiration Date Visits Requested Visits Authorized [id number] Pending Review Auto-Generat ed Referral 01/02/2024 01/31/2025 1 1 * Physical Therapy (Routine) - Authorized Specialty Diagnoses / Procedures Referred By Contac t Referred To Contact [facility] Diagnoses Radiculopathy, lumbar region Procedures CONSULT TO PHYSICAL THERAPY PHYSICAL THERAPY EVALUATION HIGH COMPLEX 45 MINS Salma Medina PA-C [address] [place] [address] [facility] [id number] [place] [address] Referral ID Status Reason Start Date Expiration Date Visits Requested Visits Authorized [id number] Authorized PCP Requested Referral Auto-Generate d Referral 01/02/2024 01/01/2025 99 99 [facility] for referral (narrative)* Diagnostic Procedure Only (Routine) - Closed Specialty Diagnoses / Procedures Referred By Contac t Referred To Contact XR IMAGING Diagnoses Coccyx pain Procedures XR SACRUM/COCCYX 3V AP/LAT RADEX SACRUM & COCCYX MINIMUM 2 VIEWS Dominga Ann, WATER MECHANIC.ROOF BOLTER OPERATOR [address] [place] [address] [place] [address] Referral ID Status Reason Start Date Expiration Date V isits Requested Visits Authorized [id number] Closed Auto-Generate d Referral 03/17/2024 04/16/2025 1 1 [facility] for referral (narrative)* Diagnostic Procedure Only (Routine) - Closed Specialty Diagnoses / Procedures Referred By Contac t Referred To Contact XR IMAGING Diagnoses Coccyx pain Procedures XR SACRUM/COCCYX 3V AP/LAT RADEX SACRUM & COCCYX MINIMUM 2 VIEWS Dominga Ann APRN.ROOF BOLTER OPERATOR [address] [place] [address] [place] [address] Referral ID Status Reason Start Date Expiration Date V isits Requested Visits Authorized [id number] Closed Auto-Generate d Referral 03/17/2024 04/16/2025 1 1 [facility] for referral (narrative)* Diagnostic Procedure Only (Routine) - Closed Specialty Diagnoses / Procedures Referred By Contac t Referred To Contact XR IMAGING Diagnoses Left knee pain, unspecified chronicity Procedures XR KNEE POST OP 3V AP/LAT/MERCHANT LEFT RADIOLOGIC EXAMINATION KNEE 3 VIEWS Gee Cantu APRN.ROOF BOLTER OPERATOR [address] [facility], [address] [place] [address] [place] [address] Referral ID Status Reason Start Date Expiration Date V isits Requested Visits Authorized [id number] Closed Auto-Generate d Referral 11/15/2023 12/13/2024 1 1 [facility] for referral (narrative)* Diagnostic Procedure Only (Routine) - New Request Specialty Diagnoses / Procedures Referred By Contac t Referred To Contact [facility] Diagnoses Encounter for screening mammogram for malignant neoplasm of breast Nipple discharge Procedures US BREAST LTD LEFT US BREAST UNI REAL TIME WITH IMAGE LIMITED Matthias Dias MD [address] [place] [address] [facility] [address] [place] [address] Referral ID Status Reason Start Date Expiration Date Visits Requested Visits Authorized [id number] New Request Auto-Generat ed Referral 05/11/2024 06/10/2025 1 1 * Diagnostic Procedure Only (Routine) - New Request Specialty Diagnoses / Procedures Referred By Contac t Referred To Contact [facility] Diagnoses Encounter for screening mammogram for malignant neoplasm of breast Nipple discharge Procedures US BREAST LTD RIGHT US BREAST UNI REAL TIME WITH IMAGE LIMITED Matthias Dias MD [address] [place] [address] [facility] [address] [place] [address] Referral ID Status Reason Start Date Expiration Date Visits Requested Visits Authorized [id number] New Request Auto-Generat ed Referral 05/11/2024 06/10/2025 1 1 * Diagnostic Procedure Only (Routine) - Authorized Specialty Diagnoses / Procedures Referred By Patel baker Referred To Contact [facility] Diagnoses Encounter for screening mammogram for malignant neoplasm of breast Nipple discharge Procedures BLADIMIR DIAGNOSTIC BILATERAL DIAGNOSTIC MAMMOGRAPHY COMPUTER-AIDED DETCJ BI Matthias Dias MD [address] [place] [address] [facility] [address] [place] [address] Referral ID Status Reason Start Date Expiration Date Visits Requested Visits Authorized [id number] Authorized Auto-Generat ed Referral 05/11/2024 06/10/2025 1 1 * Diagnostic Procedure Only (Routine) - New Request Specialty Diagnoses / Procedures Referred By Patel baker Referred To Contact [facility] Diagnoses Encounter for screening mammogram for malignant neoplasm of breast Procedures BLADIMIR SCREENING SCREENING MAMMOGRAPHY BI 2-[place] [address] [place] [address] [facility] [address] [place] [address] Referral ID Status Reason Start Date Expiration Date Visits Requested Visits Authorized [id number] New Request Auto-Generat ed Referral 05/08/2024 06/07/2025 1 1 [facility] for referral (narrative)* Diagnostic Procedure Only (Routine) - New Request Specialty Diagnoses / Procedures Referred By Contac t Referred To Contact XR IMAGING Diagnoses Spinal stenosis of lumbar region with neurogenic claudication Radiculopathy, lumbar region Procedures XR LUMBAR MOTION 4V AP/LAT/ FLEX/EXT RADEX SPINE LUMBOSACRAL MINIMUM 4 VIEWS Salma Medina PA-C [address] [place] [address] Xr Imaging [facility]95 Referral ID Status Reason Start Date Expiration Date Visits Requested Visits Authorized [id number] New Request Auto-Generat ed Referral 05/29/2024 06/28/2025 1 1 * MRI/CT (Routine) - New Request Specialty Diagnoses / Procedures Referred By Contac t Referred To Contact MR IMAGING Diagnoses Spinal stenosis of lumbar region with neurogenic claudication Radiculopathy, lumbar region Procedures MRI LUMBAR SPINE WO IVCON MRI SPINAL CANAL LUMBAR W/O CONTRAST MATERIAL Salma Medina PA-C [address] [place] [address] Mr Imaging [facility]95 Referral ID Status Reason Start Date Expiration Date Visits Requested Visits Authorized [id number] New Request Auto-Generat ed Referral 05/29/2024 06/28/2025 1 1 [facility] for referral (narrative)* Diagnostic Procedure Only (Routine) - Closed Specialty Diagnoses / Procedures Referred By Contac t Referred To Contact [facility] Diagnoses Encounter for screening mammogram for malignant neoplasm of breast Nipple discharge Procedures US BREAST LTD LEFT US BREAST UNI REAL TIME WITH IMAGE LIMITED Matthias Dias MD [address] [place] [address] [facility] Imaging [address] [place] [address] Referral ID Status Reason Start Date Expiration Date V isits Requested Visits Authorized [id number] Closed Auto-Generate d Referral 05/11/2024 06/10/2025 1 1 [facility] for referral (narrative)* Diagnostic Procedure Only (Routine) - Authorized Specialty Diagnoses / Procedures Referred By Contac t Referred To Contact [facility] Diagnoses Subareolar mass of left breast Procedures US BIOPSY BREAST LEFT BX BREAST W/DEVICE 1ST LESION ULTRASOUND Dilshad Wells, DO [address] [place] [address] [facility] Imaging [address] [place] [address] Referral ID Status Reason Start Date Expiration Date Visits Requested Visits Authorized [id number] Authorized Auto-Generat ed Referral 07/24/2025 1 1 [facility] for referral (narrative)* Diagnostic Procedure Only (Routine) - Closed Specialty Diagnoses / Procedures Referred By Contac t Referred To Contact [facility] Diagnoses Subareolar mass of left breast Procedures US BIOPSY BREAST LEFT BX BREAST W/DEVICE 1ST LESION ULTRASOUND Dilshad Wells, DO [address] [place] [address] Br Imaging [address] [place] [address] Referral ID Status Reason Start Date Expiration Date V isits Requested Visits Authorized [id number] Closed Auto-Generate d Referral 06/24/2024 07/24/2025 1 1 [facility] for referral (narrative)* Outpatient Procedure (Routine) - New Request Specialty Diagnoses / Procedures Referred By Contac t Referred To Contact [facility] Diagnoses Pre-operative examination Procedures ECG COMPLETE ECG ROUTINE ECG W/LEAST 12 LDS W/I&R Wilfrido Apodaca APRN.ROOF BOLTER OPERATOR [address] [place] [address] [facility] [place] [address] [place] [address] Referral ID Status Reason Start Date Expiration Date Visits Requested Visits Authorized [id number] New Request Auto-Generat ed Referral 07/31/2024 07/31/2025 1 1 [facility] for referral (narrative)* Diagnostic Procedure Only (Routine) - Authorized Specialty Diagnoses / Procedures Referred By Patel t Referred To Contact [facility] Diagnoses Intraductal papilloma of left breast S/P lumpectomy, left breast Procedures BLADIMIR DIAG W ANURADHA BILATERAL DIGITAL BREAST TOMOSYNTHESIS BILATERAL Preston, Dilshad Lewis DO [address] [place] [address] [facility] Imaging [address] [place] [address] Referral ID Status Reason Start Date Expiration Date Visits Requested Visits Authorized [id number] Authorized Auto-Generat ed Referral 02/10/2025 09/11/2025 1 1 [facility] for visit Narrative* Diagnostic Procedure Only (Routine) - Closed Specialty Diagnoses / Procedures Referred By Contac t Referred To Contact [facility] Diagnoses IPMN (intraductal papillary mucinous neoplasm) Procedures BLADIMIR SCREENING SCREENING MAMMOGRAPHY BI 2-VIEW BREAST INC CAD Layla Bellamy PA-C [address] [place] [address] Br Imaging [address] [place] [address] Referral ID Status Reason Start Date Expiration Date V isits Requested Visits Authorized [id number] Closed Auto-Generate d Referral 01/08/2022 02/07/2023 1 1 [facility] for visit Narrative* Diagnostic Procedure Only (Routine) - Closed Specialty Diagnoses / Procedures Referred By Contac t Referred To Contact [facility] Diagnoses Abnormal mammogram Procedures BLADIMIR DIAGNOSTIC RT DIAGNOSTIC MAMMOGRAPHY COMPUTER-AIDED DETCJ UNI Matthias Dias MD [address] [place] [address] Br Imaging [address] [place] [address] Referral ID Status Reason Start Date Expiration Date V isits Requested Visits Authorized [id number] Closed Auto-Generate d Referral 03/28/2022 04/27/2023 1 1 [facility] for visit Narrative* Diagnostic Procedure Only (Routine) - Closed Specialty Diagnoses / Procedures Referred By Contac t Referred To Contact [facility] Diagnoses Abnormal mammogram Procedures BLADIMIR DIAGNOSTIC BILAT DIAGNOSTIC MAMMOGRAPHY COMPUTER-AIDED DETCJ BI Matthias Dias MD [address] [place] [address] Br Imaging [address] [place] [address] Referral ID Status Reason Start Date Expiration Date V isits Requested Visits Authorized [id number] Closed Auto-Generate d Referral 04/02/2023 11/02/2023 1 1 [facility] for visit Narrative* Diagnostic Procedure Only (Routine) - Closed Specialty Diagnoses / Procedures Referred By Contac t Referred To Contact XR IMAGING Diagnoses Coccyx pain Procedures XR SACRUM/COCCYX 3V AP/LAT RADEX SACRUM & COCCYX MINIMUM 2 VIEWS Dominga Ann, WATER MECHANIC.ROOF BOLTER OPERATOR [address] [place] [address] Xr Imaging [facility]95 Referral ID Status Reason Start Date Expiration Date V isits Requested Visits Authorized [id number] Closed Auto-Generate d Referral 03/17/2024 04/16/2025 1 1 [facility] for visit Narrative* Diagnostic Procedure Only (Routine) - Closed Specialty Diagnoses / Procedures Referred By Contac t Referred To Contact XR IMAGING Diagnoses Left knee pain, unspecified chronicity Procedures XR KNEE POST OP 3V AP/LAT/MERCHANT LEFT RADIOLOGIC EXAMINATION KNEE 3 VIEWS Gee Cantu, WATER MECHANIC.ROOF BOLTER OPERATOR [address] [address] Xr Imaging [facility]95 Referral ID Status Reason Start Date Expiration Date V isits Requested Visits Authorized [id number] Closed Auto-Generate d Referral 11/15/2023 12/13/2024 1 1 [facility] for visit Narrative* Diagnostic Procedure Only (Routine) - Closed Specialty Diagnoses / Procedures Referred By Contac t Referred To Contact [facility] Diagnoses Encounter for screening mammogram for malignant neoplasm of breast Nipple discharge Procedures US BREAST LTD RIGHT US BREAST UNI REAL TIME WITH IMAGE LIMITED Matthias Dias MD [address] [place] [address] Br Imaging [address] [place] [address] Referral ID Status Reason Start Date Expiration Date V isits Requested Visits Authorized [id number] Closed Auto-Generate d Referral 05/11/2024 06/10/2025 1 1 [facility] for visit Narrative* Diagnostic Procedure Only (Routine) - Closed Specialty Diagnoses / Procedures Referred By Patel t Referred To Contact [facility] Diagnoses Encounter for screening mammogram for malignant neoplasm of breast Nipple discharge Procedures BLADIMIR DIAGNOSTIC BILATERAL DIAGNOSTIC MAMMOGRAPHY COMPUTER-AIDED DETCJ BI Matthias Dias MD [address] [place] [address] Br Imaging [address] [place] [address] Referral ID Status Reason Start Date Expiration Date V isits Requested Visits Authorized [id number] Closed Auto-Generate d Referral 05/11/2024 06/10/2025 1 1 [facility] for visit Narrative* Diagnostic Procedure Only (Routine) - Closed Specialty Diagnoses / Procedures Referred By Contac t Referred To Contact XR IMAGING Diagnoses Spinal stenosis of lumbar region with neurogenic claudication Radiculopathy, lumbar region Procedures XR LUMBAR MOTION 4V AP/LAT/ FLEX/EXT RADEX SPINE LUMBOSACRAL MINIMUM 4 VIEWS Salma Medina PA-C [address] [place] [address] [place] [address] Referral ID Status Reason Start Date Expiration Date V isits Requested Visits Authorized [id number] Closed Auto-Generate d Referral 05/29/2024 06/28/2025 1 1 [facility] for visit Narrative* Diagnostic Procedure Only (Routine) - Closed Specialty Diagnoses / Procedures Referred By Patel baker Referred To Contact BR [facility] Diagnoses Subareolar mass of left breast Procedures US BIOPSY BREAST LEFT BX BREAST W/DEVICE 1ST LESION ULTRASOUND GUID Dilshad Garcia, DO [address] [place] [address] Br Imaging [address] [place] [address] Referral ID Status Reason Start Date Expiration Date V isits Requested Visits Authorized [id number] Closed Auto-Generate d Referral 06/24/2024 07/24/2025 [facility] Procedure Only (Routine) - Closed Specialty Diagnoses / Procedures Referred By Patel baker Referred To Contact BR IMAG[facility] Diagnoses Intraductal papilloma of left breast S/P lumpectomy, left breast Procedures BLADIMIR DIAG W ANURADHA BILATERAL DIGITAL BREAST TOMOSYNTHESIS BILATERAL Dilshad Garcia, DO [address] [place] [address] Phone: tel: fax: [facility] [address] [place] [address] Referral ID Status Reason Start Date Expiration Date V isits Requested Visits Authorized [id number] Closed Auto-Generate d Referral 02/10/2025 09/11/2025 1 1 [facility] Advance Directives No Advanced Directives Records FoundDocuments on File Type Date Recorded 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 Advance Directive(s) 08/21/2021 7:47 AM Advance Directive(s) 06/13/2021 7:10 AM Advance Directive(s) 12/28/2020 7:22 AM Advance Directive(s) 12/19/2020 1:34 PM Advance Directive(s) 11/05/2019 8:40 AM Advance Directive(s) 10/28/2019 12:22 PM Advance Directive(s) 08/27/2017 3:43 PM Documents on File Type Date Recorded 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 Advance Directive(s) 08/21/2021 7:47 AM Advance Directive(s) 06/13/2021 7:10 AM Advance Directive(s) 12/28/2020 7:22 AM Advance Directive(s) 12/19/2020 1:34 PM Advance Directive(s) 11/05/2019 8:40 AM Advance Directive(s) 10/28/2019 12:22 PM Advance Directive(s) 08/27/2017 3:43 PM Documents on File Type Date Recorded 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 Advance Directive(s) 08/27/2017 3:43 PM Documents on File Type Date Recorded 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 Advance Directive(s) 08/27/2017 3:43 PM Health Concerns Infection Onset Date Last Indicated Resolved Time COVID-19 Rule-Out 05/29/2021 05/29/2021 05/31/2021 2:05 AM EDT COVID-19 Rule-Out 08/16/2021 08/15/2021 09/05/2021 8:53 PM EST Infection Onset Date Last Indicated Resolved Time COVID-19 Rule-Out 08/16/2021 08/15/2021 09/05/2021 8:53 PM EST Medications Administered Section Inactive Administered Medications - up to 3 most recent administrations Medication Order MAR Action Action Date Dose Rate Site ondansetron (PF) 4 mg injection (ZOFRAN) 4 mg, INTRAMUSCULAR, ONCE, 1 dose, On 01/01/22 at 1900 Given 01/01/2022 7:04 PM EDT 4 mg Butto cks, Right Reason for Referral Specialty Diagnoses / Procedures Referred By Patel baker Referred To Contact [facility] Diagnoses Chronic pain of left knee Infection of prosthetic joint, initial encounter (HCC) Procedures CONSULT TO PHYSICAL THERAPY PHYSICAL THERAPY EVALUATION HIGH COMPLEX 45 MINS Gee Cantu APRN.ROOF BOLTER OPERATOR [address] [facility], [address] [place] [address] [facility] [address] [address] Referral ID Status Reason Start Date Expiration Date Visits Requested Visits Authorized [id number] Authorized PCP Requested Referral Auto-Generate d Referral 05/03/2022 05/03/2023 99 99 Specialty Diagnoses / Procedures Referred By Patel baker Referred To Contact MR IMAGING Diagnoses IPMN (intraductal papillary mucinous neoplasm) Procedures MRI PANC/JUANJO WO/W IVCON MRI ABDOMEN W/O & W/CONTRAST MATERIAL Layla Bellamy PA-C [address] [place] [address] [place] [address] Referral ID Status Reason Start Date Expiration Date V isits Requested Visits Authorized [id number] Closed Auto-Generate d Referral 10/15/2022 11/14/2023 1 1 Specialty Diagnoses / Procedures Referred By Contac t Referred To Contact [facility] Diagnoses Chronic pain of left knee Failure of total knee replacement, initial encounter (HCC) (HCC) Procedures CONSULT TO PHYSICAL THERAPY PHYSICAL THERAPY [facility] 45 MINS Layla Bellamy PA-C [address] [place] [address] [facility] [place] [address] [place] [address] Referral ID Status Reason Start Date Expiration Date Visits Requested Visits Authorized [id number] Authorized PCP Requested Referral Auto-Generate d Referral 11/14/2023 11/13/2024 99 99 Specialty Diagnoses / Procedures Referred By Contac t Referred To Contact [facility] [place] Diagnoses Radiculopathy, lumbar region Procedures CON[facility]/OUTPATIENT [facility] 60 MINUTES Felecia Calderon MD [address] [place] [address] Referral ID Status Reason Start Date Expiration Date Visits Requested Visits Authorized [id number] Authorized PCP Requested Referral 12/10/2023 12/09/2024 1 1 Specialty Diagnoses / Procedures Referred By Contac t Referred To Contact MR IMAGING Diagnoses Spinal stenosis of lumbar region with neurogenic claudication Radiculopathy, lumbar region Procedures MRI LUMBAR SPINE WO IVCON MRI SPINAL CANAL LUMBAR W/O CONTRAST MATERIAL Salma Medina PA-C [address] [place] [address] [place] [id number] Referral ID Status Reason Start Date Expiration Date V isits Requested Visits Authorized [id number] Closed Auto-Generate d Referral 05/29/2024 06/28/2025 1 1 Summary Purpose Family History No Family History Records FoundNo Family History Records FoundNo Family History Records FoundNo Family History Records Found Additional Source Comments Source Comments (unrecognize d section and content) In the event this informatio n is protected by the Federal Confidentiality of Alcohol and Drug Abuse Patient Records regulations: The Federal rules restrict any use of the information to criminally investigate or prosecute any alcohol or drug abuse patient.[facility]In the event this information is protected by the Federal Confidentiality of Alcohol and Drug Abuse Patient Records regulations: The Federal rules restrict any use of the information to criminally investigate or prosecute any alcohol or drug abuse patient.[facility] HospitalIn the event this information is protected by the Federal Confidentiality of Alcohol and Drug Abuse Patient Records regulations: The Federal rules restrict any use of the information to criminally investigate or prosecute any alcohol or drug abuse patient.[facility] HospitalIn the event this information is protected by the Federal Confidentiality of Alcohol and Drug Abuse Patient Records regulations: The Federal rules restrict any use of the information to criminally investigate or prosecute any alcohol or drug abuse patient.[facility] HospitalIn the event this information is protected by the Federal Confidentiality of Alcohol and Drug Abuse Patient Records regulations: The Federal rules restrict any use of the information to criminally investigate or prosecute any alcohol or drug abuse patient.[facility] HospitalIn the event this information is protected by the Federal Confidentiality of Alcohol and Drug Abuse Patient Records regulations: The Federal rules restrict any use of the information to criminally investigate or prosecute any alcohol or drug abuse patient.[facility] HospitalIn the event this information is protected by the Federal Confidentiality of Alcohol and Drug Abuse Patient Records regulations: The Federal rules restrict any use of the information to criminally investigate or prosecute any alcohol or drug abuse patient.[facility] HospitalIn the event this information is protected by the Federal Confidentiality of Alcohol and Drug Abuse Patient Records regulations: The Federal rules restrict any use of the information to criminally investigate or prosecute any alcohol or drug abuse patient.[facility] HospitalIn the event this information is protected by the Federal Confidentiality of Alcohol and Drug Abuse Patient Records regulations: The Federal rules restrict any use of the information to criminally investigate or prosecute any alcohol or drug abuse patient.[facility] HospitalIn the event this information is protected by the Federal Confidentiality of Alcohol and Drug Abuse Patient Records regulations: The Federal rules restrict any use of the information to criminally investigate or prosecute any alcohol or drug abuse patient.[facility] HospitalIn the event this information is protected by the Federal Confidentiality of Alcohol and Drug Abuse Patient Records regulations: The Federal rules restrict any use of the information to criminally investigate or prosecute any alcohol or drug abuse patient.[facility] HospitalIn the event this information is protected by the Federal Confidentiality of Alcohol and Drug Abuse Patient Records regulations: The Federal rules restrict any use of the information to criminally investigate or prosecute any alcohol or drug abuse patient.[facility] HospitalIn the event this information is protected by the Federal Confidentiality of Alcohol and Drug Abuse Patient Records regulations: The Federal rules restrict any use of the information to criminally investigate or prosecute any alcohol or drug abuse patient.[facility] HospitalIn the event this information is protected by the Federal Confidentiality of Alcohol and Drug Abuse Patient Records regulations: The Federal rules restrict any use of the information to criminally investigate or prosecute any alcohol or drug abuse patient.[facility] HospitalIn the event this information is protected by the Federal Confidentiality of Alcohol and Drug Abuse Patient Records regulations: The Federal rules restrict any use of the information to criminally investigate or prosecute any alcohol or drug abuse patient.[facility] HospitalIn the event this information is protected by the Federal Confidentiality of Alcohol and Drug Abuse Patient Records regulations: The Federal rules restrict any use of the information to criminally investigate or prosecute any alcohol or drug abuse patient.[facility] HospitalIn the event this information is protected by the Federal Confidentiality of Alcohol and Drug Abuse Patient Records regulations: The Federal rules restrict any use of the information to criminally investigate or prosecute any alcohol or drug abuse patient.[facility] HospitalIn the event this information is protected by the Federal Confidentiality of Alcohol and Drug Abuse Patient Records regulations: The Federal rules restrict any use of the information to criminally investigate or prosecute any alcohol or drug abuse patient.[facility] HospitalIn the event this information is protected by the Federal Confidentiality of Alcohol and Drug Abuse Patient Records regulations: The Federal rules restrict any use of the information to criminally investigate or prosecute any alcohol or drug abuse patient.[facility] HospitalIn the event this information is protected by the Federal Confidentiality of Alcohol and Drug Abuse Patient Records regulations: The Federal rules restrict any use of the information to criminally investigate or prosecute any alcohol or drug abuse patient.[facility] HospitalIn the event this information is protected by the Federal Confidentiality of Alcohol and Drug Abuse Patient Records regulations: The Federal rules restrict any use of the information to criminally investigate or prosecute any alcohol or drug abuse patient.[facility] HospitalIn the event this information is protected by the Federal Confidentiality of Alcohol and Drug Abuse Patient Records regulations: The Federal rules restrict any use of the information to criminally investigate or prosecute any alcohol or drug abuse patient.[facility] HospitalIn the event this information is protected by the Federal Confidentiality of Alcohol and Drug Abuse Patient Records regulations: The Federal rules restrict any use of the information to criminally investigate or prosecute any alcohol or drug abuse patient.[facility] HospitalIn the event this information is protected by the Federal Confidentiality of Alcohol and Drug Abuse Patient Records regulations: The Federal rules restrict any use of the information to criminally investigate or prosecute any alcohol or drug abuse patient.[facility] HospitalIn the event this information is protected by the Federal Confidentiality of Alcohol and Drug Abuse Patient Records regulations: The Federal rules restrict any use of the information to criminally investigate or prosecute any alcohol or drug abuse patient.[facility] HospitalIn the event this information is protected by the Federal Confidentiality of Alcohol and Drug Abuse Patient Records regulations: The Federal rules restrict any use of the information to criminally investigate or prosecute any alcohol or drug abuse patient.[facility] HospitalIn the event this information is protected by the Federal Confidentiality of Alcohol and Drug Abuse Patient Records regulations: The Federal rules restrict any use of the information to criminally investigate or prosecute any alcohol or drug abuse patient.[facility] HospitalIn the event this information is protected by the Federal Confidentiality of Alcohol and Drug Abuse Patient Records regulations: The Federal rules restrict any use of the information to criminally investigate or prosecute any alcohol or drug abuse patient.[facility] HospitalIn the event this information is protected by the Federal Confidentiality of Alcohol and Drug Abuse Patient Records regulations: The Federal rules restrict any use of the information to criminally investigate or prosecute any alcohol or drug abuse patient.[facility] HospitalIn the event this information is protected by the Federal Confidentiality of Alcohol and Drug Abuse Patient Records regulations: The Federal rules restrict any use of the information to criminally investigate or prosecute any alcohol or drug abuse patient.[facility] HospitalIn the event this information is protected by the Federal Confidentiality of Alcohol and Drug Abuse Patient Records regulations: The Federal rules restrict any use of the information to criminally investigate or prosecute any alcohol or drug abuse patient.[facility] HospitalIn the event this information is protected by the Federal Confidentiality of Alcohol and Drug Abuse Patient Records regulations: The Federal rules restrict any use of the information to criminally investigate or prosecute any alcohol or drug abuse patient.[facility] HospitalIn the event this information is protected by the Federal Confidentiality of Alcohol and Drug Abuse Patient Records regulations: The Federal rules restrict any use of the information to criminally investigate or prosecute any alcohol or drug abuse patient.[facility] HospitalIn the event this information is protected by the Federal Confidentiality of Alcohol and Drug Abuse Patient Records regulations: The Federal rules restrict any use of the information to criminally investigate or prosecute any alcohol or drug abuse patient.[facility] HospitalIn the event this information is protected by the Federal Confidentiality of Alcohol and Drug Abuse Patient Records regulations: The Federal rules restrict any use of the information to criminally investigate or prosecute any alcohol or drug abuse patient.[facility] HospitalIn the event this information is protected by the Federal Confidentiality of Alcohol and Drug Abuse Patient Records regulations: The Federal rules restrict any use of the information to criminally investigate or prosecute any alcohol or drug abuse patient.[facility] HospitalIn the event this information is protected by the Federal Confidentiality of Alcohol and Drug Abuse Patient Records regulations: The Federal rules restrict any use of the information to criminally investigate or prosecute any alcohol or drug abuse patient.[facility] HospitalIn the event this information is protected by the Federal Confidentiality of Alcohol and Drug Abuse Patient Records regulations: The Federal rules restrict any use of the information to criminally investigate or prosecute any alcohol or drug abuse patient.[facility] HospitalIn the event this information is protected by the Federal Confidentiality of Alcohol and Drug Abuse Patient Records regulations: The Federal rules restrict any use of the information to criminally investigate or prosecute any alcohol or drug abuse patient.[facility] HospitalIn the event this information is protected by the Federal Confidentiality of Alcohol and Drug Abuse Patient Records regulations: The Federal rules restrict any use of the information to criminally investigate or prosecute any alcohol or drug abuse patient.[facility] HospitalIn the event this information is protected by the Federal Confidentiality of Alcohol and Drug Abuse Patient Records regulations: The Federal rules restrict any use of the information to criminally investigate or prosecute any alcohol or drug abuse patient.[facility] HospitalIn the event this information is protected by the Federal Confidentiality of Alcohol and Drug Abuse Patient Records regulations: The Federal rules restrict any use of the information to criminally investigate or prosecute any alcohol or drug abuse patient.[facility] HospitalIn the event this information is protected by the Federal Confidentiality of Alcohol and Drug Abuse Patient Records regulations: The Federal rules restrict any use of the information to criminally investigate or prosecute any alcohol or drug abuse patient.[facility] HospitalIn the event this information is protected by the Federal Confidentiality of Alcohol and Drug Abuse Patient Records regulations: The Federal rules restrict any use of the information to criminally investigate or prosecute any alcohol or drug abuse patient.[facility] HospitalIn the event this information is protected by the Federal Confidentiality of Alcohol and Drug Abuse Patient Records regulations: The Federal rules restrict any use of the information to criminally investigate or prosecute any alcohol or drug abuse patient.[facility] HospitalIn the event this information is protected by the Federal Confidentiality of Alcohol and Drug Abuse Patient Records regulations: The Federal rules restrict any use of the information to criminally investigate or prosecute any alcohol or drug abuse patient.[facility] HospitalIn the event this information is protected by the Federal Confidentiality of Alcohol and Drug Abuse Patient Records regulations: The Federal rules restrict any use of the information to criminally investigate or prosecute any alcohol or drug abuse patient.[facility] HospitalIn the event this information is protected by the Federal Confidentiality of Alcohol and Drug Abuse Patient Records regulations: The Federal rules restrict any use of the information to criminally investigate or prosecute any alcohol or drug abuse patient.[facility] HospitalIn the event this information is protected by the Federal Confidentiality of Alcohol and Drug Abuse Patient Records regulations: The Federal rules restrict any use of the information to criminally investigate or prosecute any alcohol or drug abuse patient.[facility] HospitalIn the event this information is protected by the Federal Confidentiality of Alcohol and Drug Abuse Patient Records regulations: The Federal rules restrict any use of the information to criminally investigate or prosecute any alcohol or drug abuse patient.[facility] HospitalIn the event this information is protected by the Federal Confidentiality of Alcohol and Drug Abuse Patient Records regulations: The Federal rules restrict any use of the information to criminally investigate or prosecute any alcohol or drug abuse patient.[facility] HospitalIn the event this information is protected by the Federal Confidentiality of Alcohol and Drug Abuse Patient Records regulations: The Federal rules restrict any use of the information to criminally investigate or prosecute any alcohol or drug abuse patient.[facility] HospitalIn the event this information is protected by the Federal Confidentiality of Alcohol and Drug Abuse Patient Records regulations: The Federal rules restrict any use of the information to criminally investigate or prosecute any alcohol or drug abuse patient.[facility] HospitalIn the event this information is protected by the Federal Confidentiality of Alcohol and Drug Abuse Patient Records regulations: The Federal rules restrict any use of the information to criminally investigate or prosecute any alcohol or drug abuse patient.[facility] HospitalIn the event this information is protected by the Federal Confidentiality of Alcohol and Drug Abuse Patient Records regulations: The Federal rules restrict any use of the information to criminally investigate or prosecute any alcohol or drug abuse patient.[facility] HospitalIn the event this information is protected by the Federal Confidentiality of Alcohol and Drug Abuse Patient Records regulations: The Federal rules restrict any use of the information to criminally investigate or prosecute any alcohol or drug abuse patient.[facility] HospitalIn the event this information is protected by the Federal Confidentiality of Alcohol and Drug Abuse Patient Records regulations: The Federal rules restrict any use of the information to criminally investigate or prosecute any alcohol or drug abuse patient.[facility] HospitalIn the event this information is protected by the Federal Confidentiality of Alcohol and Drug Abuse Patient Records regulations: The Federal rules restrict any use of the information to criminally investigate or prosecute any alcohol or drug abuse patient.[facility] HospitalIn the event this information is protected by the Federal Confidentiality of Alcohol and Drug Abuse Patient Records regulations: The Federal rules restrict any use of the information to criminally investigate or prosecute any alcohol or drug abuse patient.[facility] HospitalIn the event this information is protected by the Federal Confidentiality of Alcohol and Drug Abuse Patient Records regulations: The Federal rules restrict any use of the information to criminally investigate or prosecute any alcohol or drug abuse patient.[facility] HospitalIn the event this information is protected by the Federal Confidentiality of Alcohol and Drug Abuse Patient Records regulations: The Federal rules restrict any use of the information to criminally investigate or prosecute any alcohol or drug abuse patient.[facility] HospitalIn the event this information is protected by the Federal Confidentiality of Alcohol and Drug Abuse Patient Records regulations: The Federal rules restrict any use of the information to criminally investigate or prosecute any alcohol or drug abuse patient.[facility] HospitalIn the event this information is protected by the Federal Confidentiality of Alcohol and Drug Abuse Patient Records regulations: The Federal rules restrict any use of the information to criminally investigate or prosecute any alcohol or drug abuse patient.[facility] HospitalIn the event this information is protected by the Federal Confidentiality of Alcohol and Drug Abuse Patient Records regulations: The Federal rules restrict any use of the information to criminally investigate or prosecute any alcohol or drug abuse patient.[facility] HospitalIn the event this information is protected by the Federal Confidentiality of Alcohol and Drug Abuse Patient Records regulations: The Federal rules restrict any use of the information to criminally investigate or prosecute any alcohol or drug abuse patient.[facility] HospitalIn the event this information is protected by the Federal Confidentiality of Alcohol and Drug Abuse Patient Records regulations: The Federal rules restrict any use of the information to criminally investigate or prosecute any alcohol or drug abuse patient.[facility] HospitalIn the event this information is protected by the Federal Confidentiality of Alcohol and Drug Abuse Patient Records regulations: The Federal rules restrict any use of the information to criminally investigate or prosecute any alcohol or drug abuse patient.[facility] HospitalIn the event this information is protected by the Federal Confidentiality of Alcohol and Drug Abuse Patient Records regulations: The Federal rules restrict any use of the information to criminally investigate or prosecute any alcohol or drug abuse patient.[facility] HospitalIn the event this information is protected by the Federal Confidentiality of Alcohol and Drug Abuse Patient Records regulations: The Federal rules restrict any use of the information to criminally investigate or prosecute any alcohol or drug abuse patient.[facility] HospitalIn the event this information is protected by the Federal Confidentiality of Alcohol and Drug Abuse Patient Records regulations: The Federal rules restrict any use of the information to criminally investigate or prosecute any alcohol or drug abuse patient.[facility] HospitalIn the event this information is protected by the Federal Confidentiality of Alcohol and Drug Abuse Patient Records regulations: The Federal rules restrict any use of the information to criminally investigate or prosecute any alcohol or drug abuse patient.[facility] HospitalIn the event this information is protected by the Federal Confidentiality of Alcohol and Drug Abuse Patient Records regulations: The Federal rules restrict any use of the information to criminally investigate or prosecute any alcohol or drug abuse patient.[facility] HospitalIn the event this information is protected by the Federal Confidentiality of Alcohol and Drug Abuse Patient Records regulations: The Federal rules restrict any use of the information to criminally investigate or prosecute any alcohol or drug abuse patient.[facility] HospitalIn the event this information is protected by the Federal Confidentiality of Alcohol and Drug Abuse Patient Records regulations: The Federal rules restrict any use of the information to criminally investigate or prosecute any alcohol or drug abuse patient.[facility] HospitalIn the event this information is protected by the Federal Confidentiality of Alcohol and Drug Abuse Patient Records regulations: The Federal rules restrict any use of the information to criminally investigate or prosecute any alcohol or drug abuse patient.[facility] HospitalIn the event this information is protected by the Federal Confidentiality of Alcohol and Drug Abuse Patient Records regulations: The Federal rules restrict any use of the information to criminally investigate or prosecute any alcohol or drug abuse patient.[facility] HospitalIn the event this information is protected by the Federal Confidentiality of Alcohol and Drug Abuse Patient Records regulations: The Federal rules restrict any use of the information to criminally investigate or prosecute any alcohol or drug abuse patient.[facility] HospitalIn the event this information is protected by the Federal Confidentiality of Alcohol and Drug Abuse Patient Records regulations: The Federal rules restrict any use of the information to criminally investigate or prosecute any alcohol or drug abuse patient.[facility] HospitalIn the event this information is protected by the Federal Confidentiality of Alcohol and Drug Abuse Patient Records regulations: The Federal rules restrict any use of the information to criminally investigate or prosecute any alcohol or drug abuse patient.[facility] HospitalIn the event this information is protected by the Federal Confidentiality of Alcohol and Drug Abuse Patient Records regulations: The Federal rules restrict any use of the information to criminally investigate or prosecute any alcohol or drug abuse patient.[facility] HospitalIn the event this information is protected by the Federal Confidentiality of Alcohol and Drug Abuse Patient Records regulations: The Federal rules restrict any use of the information to criminally investigate or prosecute any alcohol or drug abuse patient.[facility] HospitalIn the event this information is protected by the Federal Confidentiality of Alcohol and Drug Abuse Patient Records regulations: The Federal rules restrict any use of the information to criminally investigate or prosecute any alcohol or drug abuse patient.[facility] HospitalIn the event this information is protected by the Federal Confidentiality of Alcohol and Drug Abuse Patient Records regulations: The Federal rules restrict any use of the information to criminally investigate or prosecute any alcohol or drug abuse patient.[facility]In the event this information is protected by the Federal Confidentiality of Alcohol and Drug Abuse Patient Records regulations: The Federal rules restrict any use of the information to criminally investigate or prosecute any alcohol or drug abuse patient.[facility] HospitalIn the event this information is protected by the Federal Confidentiality of Alcohol and Drug Abuse Patient Records regulations: The Federal rules restrict any use of the information to criminally investigate or prosecute any alcohol or drug abuse patient.[facility] HospitalIn the event this information is protected by the Federal Confidentiality of Alcohol and Drug Abuse Patient Records regulations: The Federal rules restrict any use of the information to criminally investigate or prosecute any alcohol or drug abuse patient.[facility] HospitalIn the event this information is protected by the Federal Confidentiality of Alcohol and Drug Abuse Patient Records regulations: The Federal rules restrict any use of the information to criminally investigate or prosecute any alcohol or drug abuse patient.[facility] HospitalIn the event this information is protected by the Federal Confidentiality of Alcohol and Drug Abuse Patient Records regulations: The Federal rules restrict any use of the information to criminally investigate or prosecute any alcohol or drug abuse patient.[facility] HospitalIn the event this information is protected by the Federal Confidentiality of Alcohol and Drug Abuse Patient Records regulations: The Federal rules restrict any use of the information to criminally investigate or prosecute any alcohol or drug abuse patient.[facility] HospitalIn the event this information is protected by the Federal Confidentiality of Alcohol and Drug Abuse Patient Records regulations: The Federal rules restrict any use of the information to criminally investigate or prosecute any alcohol or drug abuse patient.[facility] HospitalIn the event this information is protected by the Federal Confidentiality of Alcohol and Drug Abuse Patient Records regulations: The Federal rules restrict any use of the information to criminally investigate or prosecute any alcohol or drug abuse patient.[facility] HospitalIn the event this information is protected by the Federal Confidentiality of Alcohol and Drug Abuse Patient Records regulations: The Federal rules restrict any use of the information to criminally investigate or prosecute any alcohol or drug abuse patient.[facility] HospitalIn the event this information is protected by the Federal Confidentiality of Alcohol and Drug Abuse Patient Records regulations: The Federal rules restrict any use of the information to criminally investigate or prosecute any alcohol or drug abuse patient.[facility] HospitalIn the event this information is protected by the Federal Confidentiality of Alcohol and Drug Abuse Patient Records regulations: The Federal rules restrict any use of the information to criminally investigate or prosecute any alcohol or drug abuse patient.[facility] HospitalIn the event this information is protected by the Federal Confidentiality of Alcohol and Drug Abuse Patient Records regulations: The Federal rules restrict any use of the information to criminally investigate or prosecute any alcohol or drug abuse patient.[facility] HospitalIn the event this information is protected by the Federal Confidentiality of Alcohol and Drug Abuse Patient Records regulations: The Federal rules restrict any use of the information to criminally investigate or prosecute any alcohol or drug abuse patient.[facility] HospitalIn the event this information is protected by the Federal Confidentiality of Alcohol and Drug Abuse Patient Records regulations: The Federal rules restrict any use of the information to criminally investigate or prosecute any alcohol or drug abuse patient.[facility] HospitalIn the event this information is protected by the Federal Confidentiality of Alcohol and Drug Abuse Patient Records regulations: The Federal rules restrict any use of the information to criminally investigate or prosecute any alcohol or drug abuse patient.[facility] HospitalIn the event this information is protected by the Federal Confidentiality of Alcohol and Drug Abuse Patient Records regulations: The Federal rules restrict any use of the information to criminally investigate or prosecute any alcohol or drug abuse patient.[facility] HospitalIn the event this information is protected by the Federal Confidentiality of Alcohol and Drug Abuse Patient Records regulations: The Federal rules restrict any use of the information to criminally investigate or prosecute any alcohol or drug abuse patient.[facility] HospitalIn the event this information is protected by the Federal Confidentiality of Alcohol and Drug Abuse Patient Records regulations: The Federal rules restrict any use of the information to criminally investigate or prosecute any alcohol or drug abuse patient.[facility] HospitalIn the event this information is protected by the Federal Confidentiality of Alcohol and Drug Abuse Patient Records regulations: The Federal rules restrict any use of the information to criminally investigate or prosecute any alcohol or drug abuse patient.[facility] HospitalIn the event this information is protected by the Federal Confidentiality of Alcohol and Drug Abuse Patient Records regulations: The Federal rules restrict any use of the information to criminally investigate or prosecute any alcohol or drug abuse patient.[facility] HospitalIn the event this information is protected by the Federal Confidentiality of Alcohol and Drug Abuse Patient Records regulations: The Federal rules restrict any use of the information to criminally investigate or prosecute any alcohol or drug abuse patient.[facility] HospitalIn the event this information is protected by the Federal Confidentiality of Alcohol and Drug Abuse Patient Records regulations: The Federal rules restrict any use of the information to criminally investigate or prosecute any alcohol or drug abuse patient.[facility] HospitalIn the event this information is protected by the Federal Confidentiality of Alcohol and Drug Abuse Patient Records regulations: The Federal rules restrict any use of the information to criminally investigate or prosecute any alcohol or drug abuse patient.[facility] HospitalIn the event this information is protected by the Federal Confidentiality of Alcohol and Drug Abuse Patient Records regulations: The Federal rules restrict any use of the information to criminally investigate or prosecute any alcohol or drug abuse patient.[facility] HospitalIn the event this information is protected by the Federal Confidentiality of Alcohol and Drug Abuse Patient Records regulations: The Federal rules restrict any use of the information to criminally investigate or prosecute any alcohol or drug abuse patient.[facility] HospitalIn the event this information is protected by the Federal Confidentiality of Alcohol and Drug Abuse Patient Records regulations: The Federal rules restrict any use of the information to criminally investigate or prosecute any alcohol or drug abuse patient.[facility] HospitalIn the event this information is protected by the Federal Confidentiality of Alcohol and Drug Abuse Patient Records regulations: The Federal rules restrict any use of the information to criminally investigate or prosecute any alcohol or drug abuse patient.[facility] HospitalIn the event this information is protected by the Federal Confidentiality of Alcohol and Drug Abuse Patient Records regulations: The Federal rules restrict any use of the information to criminally investigate or prosecute any alcohol or drug abuse patient.[facility] HospitalIn the event this information is protected by the Federal Confidentiality of Alcohol and Drug Abuse Patient Records regulations: The Federal rules restrict any use of the information to criminally investigate or prosecute any alcohol or drug abuse patient.[facility] HospitalIn the event this information is protected by the Federal Confidentiality of Alcohol and Drug Abuse Patient Records regulations: The Federal rules restrict any use of the information to criminally investigate or prosecute any alcohol or drug abuse patient.[facility] HospitalIn the event this information is protected by the Federal Confidentiality of Alcohol and Drug Abuse Patient Records regulations: The Federal rules restrict any use of the information to criminally investigate or prosecute any alcohol or drug abuse patient.[facility] HospitalIn the event this information is protected by the Federal Confidentiality of Alcohol and Drug Abuse Patient Records regulations: The Federal rules restrict any use of the information to criminally investigate or prosecute any alcohol or drug abuse patient.[facility] HospitalIn the event this information is protected by the Federal Confidentiality of Alcohol and Drug Abuse Patient Records regulations: The Federal rules restrict any use of the information to criminally investigate or prosecute any alcohol or drug abuse patient.[facility] HospitalIn the event this information is protected by the Federal Confidentiality of Alcohol and Drug Abuse Patient Records regulations: The Federal rules restrict any use of the information to criminally investigate or prosecute any alcohol or drug abuse patient.[facility] HospitalIn the event this information is protected by the Federal Confidentiality of Alcohol and Drug Abuse Patient Records regulations: The Federal rules restrict any use of the information to criminally investigate or prosecute any alcohol or drug abuse patient.[facility] HospitalIn the event this information is protected by the Federal Confidentiality of Alcohol and Drug Abuse Patient Records regulations: The Federal rules restrict any use of the information to criminally investigate or prosecute any alcohol or drug abuse patient.[facility] HospitalIn the event this information is protected by the Federal Confidentiality of Alcohol and Drug Abuse Patient Records regulations: The Federal rules restrict any use of the information to criminally investigate or prosecute any alcohol or drug abuse patient.[facility] HospitalIn the event this information is protected by the Federal Confidentiality of Alcohol and Drug Abuse Patient Records regulations: The Federal rules restrict any use of the information to criminally investigate or prosecute any alcohol or drug abuse patient.[facility] HospitalIn the event this information is protected by the Federal Confidentiality of Alcohol and Drug Abuse Patient Records regulations: The Federal rules restrict any use of the information to criminally investigate or prosecute any alcohol or drug abuse patient.[facility] HospitalIn the event this information is protected by the Federal Confidentiality of Alcohol and Drug Abuse Patient Records regulations: The Federal rules restrict any use of the information to criminally investigate or prosecute any alcohol or drug abuse patient.[facility] HospitalIn the event this information is protected by the Federal Confidentiality of Alcohol and Drug Abuse Patient Records regulations: The Federal rules restrict any use of the information to criminally investigate or prosecute any alcohol or drug abuse patient.[facility] HospitalIn the event this information is protected by the Federal Confidentiality of Alcohol and Drug Abuse Patient Records regulations: The Federal rules restrict any use of the information to criminally investigate or prosecute any alcohol or drug abuse patient.[facility] HospitalIn the event this information is protected by the Federal Confidentiality of Alcohol and Drug Abuse Patient Records regulations: The Federal rules restrict any use of the information to criminally investigate or prosecute any alcohol or drug abuse patient.[facility] HospitalIn the event this information is protected by the Federal Confidentiality of Alcohol and Drug Abuse Patient Records regulations: The Federal rules restrict any use of the information to criminally investigate or prosecute any alcohol or drug abuse patient.[facility] HospitalIn the event this information is protected by the Federal Confidentiality of Alcohol and Drug Abuse Patient Records regulations: The Federal rules restrict any use of the information to criminally investigate or prosecute any alcohol or drug abuse patient.[facility] HospitalIn the event this information is protected by the Federal Confidentiality of Alcohol and Drug Abuse Patient Records regulations: The Federal rules restrict any use of the information to criminally investigate or prosecute any alcohol or drug abuse patient.[facility] HospitalIn the event this information is protected by the Federal Confidentiality of Alcohol and Drug Abuse Patient Records regulations: The Federal rules restrict any use of the information to criminally investigate or prosecute any alcohol or drug abuse patient.[facility] HospitalIn the event this information is protected by the Federal Confidentiality of Alcohol and Drug Abuse Patient Records regulations: The Federal rules restrict any use of the information to criminally investigate or prosecute any alcohol or drug abuse patient.[facility] HospitalIn the event this information is protected by the Federal Confidentiality of Alcohol and Drug Abuse Patient Records regulations: The Federal rules restrict any use of the information to criminally investigate or prosecute any alcohol or drug abuse patient.[facility] HospitalIn the event this information is protected by the Federal Confidentiality of Alcohol and Drug Abuse Patient Records regulations: The Federal rules restrict any use of the information to criminally investigate or prosecute any alcohol or drug abuse patient.[facility] HospitalIn the event this information is protected by the Federal Confidentiality of Alcohol and Drug Abuse Patient Records regulations: The Federal rules restrict any use of the information to criminally investigate or prosecute any alcohol or drug abuse patient.[facility] HospitalIn the event this information is protected by the Federal Confidentiality of Alcohol and Drug Abuse Patient Records regulations: The Federal rules restrict any use of the information to criminally investigate or prosecute any alcohol or drug abuse patient.[facility] HospitalIn the event this information is protected by the Federal Confidentiality of Alcohol and Drug Abuse Patient Records regulations: The Federal rules restrict any use of the information to criminally investigate or prosecute any alcohol or drug abuse patient.[facility] Care Teams (unrecognized sec tion and content) Ribbon Cutter Relationship Specialty Start Date End Date Layla Bellamy PA-C [address] [place] [address] PCP - General Family Practice 03/16/21 Salma Cunningham NO FORWARDING ADDRESS 06/16/02 Ribbon Cutter Relationship Specialty Start Date End Date Layla Bellamy PA-C [address] [place] [address] PCP - General Family Practice 03/16/21 Salma Cunningham NO FORWARDING ADDRESS 06/16/02 Ribbon Cutter Relationship Specialty Start Date End Date Layla Bellamy PA-C [address] [place] [address] PCP - General Family Practice 03/16/21 Salma Cunningham NO FORWARDING ADDRESS 06/16/02 Ribbon Cutter Relationship Specialty Start Date End Date Layla Bellamy PA-C [address] [place] [address] PCP - General Family Practice 03/16/21 Salma Cunningham NO FORWARDING ADDRESS 06/16/02 Ribbon Cutter Relationship Specialty Start Date End Date Layla Bellamy PA-C [address] [place] [address] PCP - General Family Practice 03/16/21 Salma Cunningham NO FORWARDING ADDRESS 06/16/02 Ribbon Cutter Relationship Specialty Start Date End Date Layla Bellamy PA-C [address] [facility] [place] [address] PCP - General Family Practice 03/16/21 Salma Cunningham NO FORWARDING ADDRESS 06/16/02 Ribbon Cutter Relationship Specialty Start Date End Date Layla Bellamy PA-C [address] [facility] [place] [address] PCP - General Family Practice 03/16/21 Salma Cunningham NO FORWARDING ADDRESS 06/16/02 Ribbon Cutter Relationship Specialty Start Date End Date Layla Bellamy PA-C [address] [place] [address] PCP - General Family Practice 03/16/21 Salma Cunningham NO FORWARDING ADDRESS 06/16/02 Ribbon Cutter Relationship Specialty Start Date End Date Layla Bellamy PA-C [address] [place] [address] PCP - General Family Practice 03/16/21 Salma Cunningham NO FORWARDING ADDRESS 06/16/02 Ribbon Cutter Relationship Specialty Start Date End Date Layla Bellamy PA-C [address] [place] [address] PCP - General Family Practice 03/16/21 Salma Cunningham NO FORWARDING ADDRESS 06/16/02 Yash Kwan, [address] [place] [address] Hematology/Oncology 03/28/22 Ribbon Cutter Relationship Specialty Start Date End Date Layla Bellamy PA-C [address] [place] [address] PCP - General Family Practice 03/16/21 Salma Cunningham NO FORWARDING ADDRESS 06/16/02 Yash Kwan, DO [address] [place] [address] Hematology/Oncology 03/28/22 Ribbon Cutter Relationship Specialty Start Date End Date Layla Bellamy PA-C [address] [place] [address] PCP - General Family Practice 03/16/21 Salma Cunningham NO FORWARDING ADDRESS 06/16/02 Yash Kwan, DO [address] [place] [address] Hematology/Oncology 03/28/22 Ribbon Cutter Relationship Specialty Start Date End Date Layla Bellamy PA-C [address] [facility] [address] PCP - General Family Practice 03/16/21 Salma Cunningham NO FORWARDING ADDRESS 06/16/02 Yash Kwan, DO [address] [place] [address] Hematology/Oncology 03/28/22 Ribbon Cutter Relationship Specialty Start Date End Date Layla Bellamy PA-C [address] [facility] [address] PCP - General Family Practice 03/16/21 Salma Cunningham NO FORWARDING ADDRESS 06/16/02 Yash Kwan, DO [address] [place] [address] Hematology/Oncology 03/28/22 Ribbon Cutter Relationship Specialty Start Date End Date Layla Bellamy PA-C [address] [facility] [address] PCP - General Family Practice 03/16/21 Salma Cunningham NO FORWARDING ADDRESS 06/16/02 Yash Kwan, DO [address] [place] [address] Hematology/Oncology 03/28/22 Ribbon Cutter Relationship Specialty Start Date End Date Layla Bellamy PA-C [address] [place] [address] PCP - General Family Practice 03/16/21 Salma Cunningham NO FORWARDING ADDRESS 06/16/02 Yash Kwan, DO [address] [place] [address] Hematology/Oncology 03/28/22 Ribbon Cutter Relationship Specialty Start Date End Date Layla Bellamy PA-C [address] [place] [address] PCP - General Family Practice 03/16/21 Salma Cunningham NO FORWARDING ADDRESS 06/16/02 Yash Kwan, DO [address] [place] [address] Hematology/Oncology 03/28/22 Ribbon Cutter Relationship Specialty Start Date End Date Layla Bellamy PA-C [address] [place] [address] PCP - General Family Practice 03/16/21 Salma Cunningham NO FORWARDING ADDRESS 06/16/02 Yash Kwan, DO [address] [place] [address] Hematology/Oncology 03/28/22 Ribbon Cutter Relationship Specialty Start Date End Date Layla Bellamy PA-C [address] [place] [address] PCP - General Family Medicine 03/16/21 Salma Cunningham NO FORWARDING ADDRESS 06/16/02 Yash Kwan, DO [address] [place] [address] Hematology/Oncology 03/28/22 Ribbon Cutter Relationship Specialty Start Date End Date Layla Bellamy PA-C [address] [place] [address] PCP - General Family Medicine 03/16/21 Salma Cunningham NO FORWARDING ADDRESS 06/16/02 Yash Kwan, DO [address] [facility] [place] [address] Hematology/Oncology 03/28/22 Ribbon Cutter Relationship Specialty Start Date End Date Layla Bellamy PA-C [address] [place] [address] PCP - General Family Medicine 03/16/21 Salma Cunningham NO FORWARDING ADDRESS 06/16/02 Yash Kwan, DO [address] [facility] [place] [address] Hematology/Oncology 03/28/22 Ribbon Cutter Relationship Specialty Start Date End Date Layla Bellamy PA-C [address] [place] [address] PCP - General Family Medicine 03/16/21 Salma Cunningham NO FORWARDING ADDRESS 06/16/02 Yash Kwan, DO [address] [facility] [place] [address] Hematology/Oncology 03/28/22 Ribbon Cutter Relationship Specialty Start Date End Date Layla Bellamy PA-C [address] [place] [address] PCP - General Family Medicine 03/16/21 Salma Cunningham NO FORWARDING ADDRESS 06/16/02 Yash Kwan, DO [address] [facility] [place] [address] Hematology/Oncology 03/28/22 Ribbon Cutter Relationship Specialty Start Date End Date Layla Bellamy PA-C [address] [place] [address] PCP - General Family Medicine 03/16/21 Salma Cunningham NO FORWARDING ADDRESS 06/16/02 Yash Kwan, DO [address] [place] [address] Hematology/Oncology 03/28/22 Ribbon Cutter Relationship Specialty Start Date End Date Layla Bellamy PA-C [address] [place] [address] PCP - General Family Medicine 03/16/21 Salma Cunningham NO FORWARDING ADDRESS 06/16/02 Yash Kwan, DO [address] [place] [address] Hematology/Oncology 03/28/22 Ribbon Cutter Relationship Specialty Start Date End Date Layla Bellamy PA-C [address] [place] [address] PCP - General Family Medicine 03/16/21 Salma Cunningham NO FORWARDING ADDRESS 06/16/02 Yash Kwan, DO [address] [place] [address] Hematology/Oncology 03/28/22 Steve Freedman, RN [address] [place] [id number] Marketing Clerk Internal Medicine 08/09/22 Ribbon Cutter Relationship Specialty Start Date End Date Layla Bellamy PA-C [address] [place] [address] PCP - General Family Medicine 03/16/21 Salma Cunningham NO FORWARDING ADDRESS 06/16/02 Yash Kwan, DO [address] [facility] [address] Hematology/Oncology 03/28/22 Steve Freedman, RN [address] [place] [address] Marketing Clerk Internal Medicine 08/09/22 Ribbon Cutter Relationship Specialty Start Date End Date Layla Bellamy PA-C [address] [facility] [place] [address] PCP - General Family Medicine 03/16/21 Salma Cunningham NO FORWARDING ADDRESS 06/16/02 Yash Kwan, DO [address] [facility] [place] [address] Hematology/Oncology 03/28/22 Steve Freedman, LI [address] [facility], [place] [id number] Marketing Clerk Internal Medicine 08/09/22 Ribbon Cutter Relationship Specialty Start Date End Date Layla Bellamy PA-C [address] [facility] [place] [address] PCP - General Family Medicine 03/16/21 Slama Cunningham NO FORWARDING ADDRESS 06/16/02 Yash Kwan, DO [address] [facility] [address] Hematology/Oncology 03/28/22 Steve Freedman, RN [address] [place] [address] Marketing Clerk Internal Medicine 08/09/22 Ribbon Cutter Relationship Specialty Start Date End Date Layla Bellamy PA-C [address] [facility] [place] [address] PCP - General Family Medicine 03/16/21 Salma Cunningham NO FORWARDING ADDRESS 06/16/02 Yash Kwan, DO [address] [facility] [place] [address] Hematology/Oncology 03/28/22 Steve Freedman, RN [address] [place] [address] Marketing Clerk Internal Medicine 08/09/22 Ribbon Cutter Relationship Specialty Start Date End Date Layla Bellamy PA-C [address] [facility] [address] PCP - General Family Medicine 03/16/21 Salma Cunningham NO FORWARDING ADDRESS 06/16/02 Yash Kwan, DO [address] [facility] [place] [address] Hematology/Oncology 03/28/22 Steve Freedman, RN [address] [place] [address] Marketing Clerk Internal Medicine 08/09/22 Ribbon Cutter Relationship Specialty Start Date End Date Layla Bellamy PA-C [address] [facility] [place] [address] PCP - General Family Medicine 03/16/21 Salma Cunningham NO FORWARDING ADDRESS 06/16/02 Yash Kwan, DO [address] [facility] [place] [address] Hematology/Oncology 03/28/22 Steve Freedman, RN [address] [place] [address] Marketing Clerk Internal Medicine 08/09/22 Ribbon Cutter Relationship Specialty Start Date End Date Layla Bellamy PA-C [address] [facility] [place] [address] PCP - General Family Medicine 03/16/21 Salma Cunningham NO FORWARDING ADDRESS 06/16/02 Yash Kwan, DO [address] [facility] [place] [address] Hematology/Oncology 03/28/22 Steve Freedman, RN [address] [facility], [place] [phone] Marketing Clerk Internal Medicine 08/09/22 Ribbon Cutter Relationship Specialty Start Date End Date Layla Bellamy PA-C [address] [place] [address] PCP - General Family Medicine 03/16/21 Salma Cunningham NO FORWARDING ADDRESS 06/16/02 Yash Kwan, DO [address] [facility] [address] Hematology/Oncology 03/28/22 Steve Freedman RN [address] [place] [address] Marketing Clerk Internal Medicine 08/09/22 Ribbon Cutter Relationship Specialty Start Date End Date Layla Bellamy PA-C [address] [place] [address] PCP - General Family Medicine 03/16/21 Salma Cunnignham NO FORWARDING ADDRESS 06/16/02 Yash Kwan, DO [address] [facility] [place] [address] Hematology/Oncology 03/28/22 Steve Freedman RN [address] [facility], [place] [phone] Marketing Clerk Internal Medicine 08/09/22 Ribbon Cutter Relationship Specialty Start Date End Date Layla Bellamy PA-C [address] [place] [address] PCP - General Family Medicine 03/16/21 Salma Cunningham NO FORWARDING ADDRESS 06/16/02 Yash Kwan, DO [address] [facility] [place] [address] Hematology/Oncology 03/28/22 Steve Freedman, RN [address] [facility], [place] [phone] Marketing Clerk Internal Medicine 08/09/22 Ribbon Cutter Relationship Specialty Start Date End Date Layla Bellamy PA-C [address] [place] [address] PCP - General Family Medicine 03/16/21 Salma Cunningham NO FORWARDING ADDRESS 06/16/02 Yash Kwan, DO [address] [facility] [place] [address] Hematology/Oncology 03/28/22 Steve Freedman, RN [address] [place] [address] Marketing Clerk Internal Medicine 08/09/22 Ribbon Cutter Relationship Specialty Start Date End Date Layla Bellamy PA-C [address] [place] [address] PCP - General Family Medicine 03/16/21 Salma Cunningham NO FORWARDING ADDRESS 06/16/02 Yash Kwan, DO [address] [facility] [place] [address] Hematology/Oncology 03/28/22 Steve Freedman, RN [address] [place] [address] Marketing Clerk Internal Medicine 08/09/22 Ribbon Cutter Relationship Specialty Start Date End Date Layla Bellamy PA-C [address] [place] [address] PCP - General Family Medicine 03/16/21 Salma Cunningham NO FORWARDING ADDRESS 06/16/02 Yash Kwan, DO [address] [facility] [place] [address] Hematology/Oncology 03/28/22 Steve Freedman, RN [address] [place] [address] Marketing Clerk Internal Medicine 08/09/22 Ribbon Cutter Relationship Specialty Start Date End Date Layla Bellamy PA-C [address] [place] [address] PCP - General Family Medicine 03/16/21 Salma Cunningham NO FORWARDING ADDRESS 06/16/02 Yash Kwan DO [address] [facility] [place] [address] Hematology/Oncology 03/28/22 Steve Freedman, RN [address] [place], [place] [phone] Marketing Clerk Internal Medicine 08/09/22 Ribbon Cutter Relationship Specialty Start Date End Date Layla Bellamy PA-C [address] [place] [address] PCP - General Family Medicine 03/16/21 Salma Cunningham NO FORWARDING ADDRESS 06/16/02 Yash Kwan DO [address] [facility] [place] [address] Hematology/Oncology 03/28/22 Steve Freedman RN [address] [place] [address] Marketing Clerk Internal Medicine 08/09/22 Ribbon Cutter Relationship Specialty Start Date End Date Layla Bellamy PA-C [address] [place] [address] PCP - General Family Medicine 03/16/21 Salma Cunningham NO FORWARDING ADDRESS 06/16/02 Yash Kwan DO [address] [facility] [place] [address] Hematology/Oncology 03/28/22 Steve Freedman RN [address] [place], [place] [phone] Marketing Clerk Internal Medicine 08/09/22 Ribbon Cutter Relationship Specialty Start Date End Date Layla Bellamy PA-C [address] [facility], [place] [address]391 PCP - General Family Medicine 03/16/21 Salma Cunningham NO FORWARDING ADDRESS 06/16/02 Yash Kwan DO [address] [facility], [place] [address]341 Hematology/Oncology 03/28/22 Steve Freedman RN [address] [place] [phone] Marketing Clerk Internal Medicine 08/09/22 Ribbon Cutter Relationship Specialty Start Date End Date Layla Bellamy PA-C [address] [place] [address] PCP - General Family Medicine 03/16/21 Salma Cunningham NO FORWARDING ADDRESS 06/16/02 Yash Kwan DO [address] [place], [place] 983571 Hematology/Oncology 03/28/22 Steve Freedman RN [address] [place] [phone] Marketing Clerk Internal Medicine 08/09/22 Ribbon Cutter Relationship Specialty Start Date End Date Layla Bellamy PA-C [address] [place], [place] 545181 PCP - General Family Medicine 03/16/21 Salma Cunningham NO FORWARDING ADDRESS 06/16/02 Yash Kwan DO [address] [place], [place] 634481 Hematology/Oncology 03/28/22 Steve Freedman, RN [address] [place], [place] [phone] Marketing Clerk Internal Medicine 08/09/22 Ribbon Cutter Relationship Specialty Start Date End Date Layla Bellamy PA-C [address] [place] [address] PCP - General Family Medicine 03/16/21 Salma Cunningham NO FORWARDING ADDRESS 06/16/02 Yash Kwan DO [address] [facility] [place] [address] Hematology/Oncology 03/28/22 Steve Freedman RN [address] [place], [place] [phone] Marketing Clerk Internal Medicine 08/09/22 Ribbon Cutter Relationship Specialty Start Date End Date Layla Bellamy PA-C [address] [place] [address] PCP - General Family Medicine 03/16/21 Salma Cunningham NO FORWARDING ADDRESS 06/16/02 Yash Kwan DO [address] [facility] [place] [address] Hematology/Oncology 03/28/22 Steve Freedman RN [address] [place], [place] [phone] Marketing Clerk Internal Medicine 08/09/22 Ribbon Cutter Relationship Specialty Start Date End Date Layla Bellamy PA-C [address] [place] [address] PCP - General Family Medicine 03/16/21 Salma Cunningham NO FORWARDING ADDRESS 06/16/02 Yash Kwan DO [address] [facility] [place] [address] Hematology/Oncology 03/28/22 Steve Freedman, RN [address] [place], [place] [phone] Marketing Clerk Internal Medicine 08/09/22 Ribbon Cutter Relationship Specialty Start Date End Date Layla Bellamy PA-C [address] [place] [address] PCP - General Family Medicine 03/16/21 Salma Cunningham NO FORWARDING ADDRESS 06/16/02 Yash Kwan DO [address] [facility] [place] [address] Hematology/Oncology 03/28/22 Steve Freedman, RN [address] [place], [place] [phone] Marketing Clerk Internal Medicine 08/09/22 Ribbon Cutter Relationship Specialty Start Date End Date Layla Bellamy PA-C [address] [place] [address] PCP - General Family Medicine 03/16/21 Salma Cunningham NO FORWARDING ADDRESS 06/16/02 Yash Kwan DO [address] [facility] [place] [address] Hematology/Oncology 03/28/22 Steve Freedman, RN [address] [place] [address] Marketing Clerk Internal Medicine 08/09/22 Ribbon Cutter Relationship Specialty Start Date End Date Layla Bellamy PA-C [address] [place] [address] PCP - General Family Medicine 03/16/21 Salma Cunningham NO FORWARDING ADDRESS 06/16/02 Yash Kwan DO [address] [place] [address] Hematology/Oncology 03/28/22 Steve Freedman, LI [address] [place], [place] [phone] Marketing Clerk Internal Medicine 08/09/22 Ribbon Cutter Relationship Specialty Start Date End Date Layla Bellamy PA-C [address] [place] [address] PCP - General Family Medicine 03/16/21 Salma Cunningham NO FORWARDING ADDRESS 06/16/02 Yash Kwan DO [address] [place] [address] Hematology/Oncology 03/28/22 Steve Freedman RN [address] [place], [place] [phone] Marketing Clerk Internal Medicine 08/09/22 Ribbon Cutter Relationship Specialty Start Date End Date Layla Bellamy PA-C [address] [place] [address] PCP - General Family Medicine 03/16/21 Salma Cunningham NO FORWARDING ADDRESS 06/16/02 Yash Kwan DO [address] [place] [address] Hematology/Oncology 03/28/22 Steve Freedman RN [address] [place], [place] [phone] Marketing Clerk Internal Medicine 08/09/22 Ribbon Cutter Relationship Specialty Start Date End Date Layla Bellamy PA-C [address] [place] [address] PCP - General Family Medicine 03/16/21 Salma Cunningham NO FORWARDING ADDRESS 06/16/02 Yash Kwan DO [address] [place] [address] Hematology/Oncology 03/28/22 Steve Freedman, RN [address] [place], [place] [phone] Marketing Clerk Internal Medicine 08/09/22 Ribbon Cutter Relationship Specialty Start Date End Date Layla Bellamy PA-C [address] [place] [address] PCP - General Family Medicine 03/16/21 Salma Cunningham NO FORWARDING ADDRESS 06/16/02 Yash Kwan DO [address] [place] [address] Hematology/Oncology 03/28/22 Steve Freedman RN [address] [place], [place] [phone] Marketing Clerk Internal Medicine 08/09/22 Ribbon Cutter Relationship Specialty Start Date End Date Layla Bellamy PA-C [address] [place] [address] PCP - General Family Medicine 03/16/21 Salma Cunningham NO FORWARDING ADDRESS 06/16/02 Steve Freedman RN [address] [place], [place] [phone] Marketing Clerk Internal Medicine 08/09/22 Ribbon Cutter Relationship Specialty Start Date End Date Layla Bellamy PA-C [address] [place], [place] 811281 PCP - General Family Medicine 03/16/21 Salma Cunningham NO FORWARDING ADDRESS 06/16/02 Steve Freedman, RN [address] [place], [place] [phone] Marketing Clerk Internal Medicine 08/09/22 Ribbon Cutter Relationship Specialty Start Date End Date Layla Bellamy PA-C [address] [place], [place] 669181 PCP - General Family Medicine 03/16/21 Salma Cunningham NO FORWARDING ADDRESS 06/16/02 Steve Freedman RN [address] [place], [place] [phone] Marketing Clerk Internal Medicine 08/09/22 Ribbon Cutter Relationship Specialty Start Date End Date Lalya Bellamy PA-C [address] [place], [place] 266511 PCP - General Family Medicine 03/16/21 Salma Cunningham NO FORWARDING ADDRESS 06/16/02 Steve Freedman RN [address] [place], [place] [phone] Marketing Clerk Internal Medicine 08/09/22 Ribbon Cutter Relationship Specialty Start Date End Date Layla Bellamy PA-C [address] [place] [address] PCP - General Family Medicine 03/16/21 Salma Cunningham NO FORWARDING ADDRESS 06/16/02 Steve Freedman, RN [address] [place], [place] [phone] Marketing Clerk Internal Medicine 08/09/22 Ribbon Cutter Relationship Specialty Start Date End Date Layla Bellamy PA-C [address] [place] [address] PCP - General Family Medicine 03/16/21 Salma Cunningham NO FORWARDING ADDRESS 06/16/02 Steve Freedman, RN [address] [place], [place] [phone] Marketing Clerk Internal Medicine 08/09/22 Ribbon Cutter Relationship Specialty Start Date End Date Layla Bellamy PA-C [address] [place] [address] PCP - General Family Medicine 03/16/21 Salma Cunningham NO FORWARDING ADDRESS 06/16/02 Steve Freedman, RN [address] [place], [place] [phone] Marketing Clerk Internal Medicine 08/09/22 Ribbon Cutter Relationship Specialty Start Date End Date Layla Bellamy PA-C [address] [place] [address] PCP - General Family Medicine 03/16/21 Salma Cunningham NO FORWARDING ADDRESS 06/16/02 Steve Freedman, RN [address] [place], [place] [phone] Marketing Clerk Internal Medicine 08/09/22 Ribbon Cutter Relationship Specialty Start Date End Date Layla Bellamy PA-C [address] [place] [address] PCP - General Family Medicine 03/16/21 Salma Cunningham NO FORWARDING ADDRESS 06/16/02 Steve Freedman, RN [address] [place], [place] [phone] Marketing Clerk Internal Medicine 08/09/22 Ribbon Cutter Relationship Specialty Start Date End Date Layla Blelamy PA-C [address] [place] [address] PCP - General Family Medicine 03/16/21 Salma Cunningham NO FORWARDING ADDRESS 06/16/02 Yash Kwan DO [address] [place], [place] 894131 Hematology/Oncology 03/28/22 02/13/24 Steve Freedman, RN [address] [place], [place] [phone] Marketing Clerk Internal Medicine 08/09/22 Ribbon Cutter Relationship Specialty Start Date End Date Layla Bellamy PA-C [address] [place] [address] PCP - General Family Medicine 03/16/21 Salma Cunningham NO FORWARDING ADDRESS 06/16/02 Yash Kwan DO [address] [place] [address] Hematology/Oncology 03/28/22 02/13/24 Steve Freedman, RN [address] [place], [place] [phone] Marketing Clerk Internal Medicine 08/09/22 Ribbon Cutter Relationship Specialty Start Date End Date Layla Bellamy PA-C [address] [place] [address] PCP - General Family Medicine 03/16/21 Salma Cunningham NO FORWARDING ADDRESS 06/16/02 Steve Freedman, RN [address] [place], [place] [phone] Marketing Clerk Internal Medicine 08/09/22 Ribbon Cutter Relationship Specialty Start Date End Date Layla Bellamy PA-C [address] [place] [address] PCP - General Family Medicine 03/16/21 Salma Cunningham NO FORWARDING ADDRESS 06/16/02 Steve Freedman, RN [address] [place], [place] [phone] Marketing Clerk Internal Medicine 08/09/22 Ribbon Cutter Relationship Specialty Start Date End Date Layla Bellamy PA-C [address] [place] [address] PCP - General Family Medicine 03/16/21 Salma Cunningham NO FORWARDING ADDRESS 06/16/02 Steve Freedman RN [address] [place], [place] [phone] Marketing Clerk Internal Medicine 08/09/22 Ribbon Cutter Relationship Specialty Start Date End Date Layla Bellamy PA-C [address] [place] [address] PCP - General Family Medicine 03/16/21 Salma Cunningham NO FORWARDING ADDRESS 06/16/02 Steve Freedman, RN [address] [place], [place] [phone] Marketing Clerk Internal Medicine 08/09/22 Ribbon Cutter Relationship Specialty Start Date End Date Layla Bellamy PA-C [facility] [place] [address] PCP - General Family Medicine 03/16/21 Salma Cunningham NO FORWARDING ADDRESS 06/16/02 Steve Freedman RN [address] [place], [place] [phone] Marketing Clerk Internal Medicine 08/09/22 Ribbon Cutter Relationship Specialty Start Date End Date Layla Bellamy PA-C [address] [place] [address] PCP - General Family Medicine 03/16/21 Salma Cunningham NO FORWARDING ADDRESS 06/16/02 Steve Freedman, RN [address] [place] [address] Marketing Clerk Internal Medicine 08/09/22 Ribbon Cutter Relationship Specialty Start Date End Date Raul Bellamy PA-C NO FORWARDING ADDRESS PCP - General Family Medicine 03/16/21 Salma Cunningham NO FORWARDING ADDRESS 06/16/02 Steve Freedman, RN [address] [place] [address] Marketing Clerk Internal Medicine 08/09/22 Ribbon Cutter Relationship Specialty Start Date End Date Raul Bellamy PA-C NO FORWARDING ADDRESS PCP - General Family Medicine 03/16/21 Salma Cunningham NO FORWARDING ADDRESS 06/16/02 Steve Freedman, RN [address] [place] [address] Marketing Clerk Internal Medicine 08/09/22 Ribbon Cutter Relationship Specialty Start Date End Date Raul Bellamy PA-C NO FORWARDING ADDRESS PCP - General Family Medicine 03/16/21 Salma Cunningham NO FORWARDING ADDRESS 06/16/02 Steve Freedman, RN [address] [place] [address] Marketing Clerk Internal Medicine 08/09/22 Ribbon Cutter Relationship Specialty Start Date End Date Raul Bellamy PA-C NO FORWARDING ADDRESS PCP - General Family Medicine 03/16/21 Salma Cunningham NO FORWARDING ADDRESS 06/16/02 Steve Freedman, RN [address] [place] [facility] [address] Marketing Clerk Internal Medicine 08/09/22 Ribbon Cutter Relationship Specialty Start Date End Date Raul Bellamy PA-C NO FORWARDING ADDRESS PCP - General Family Medicine 03/16/21 Salma Cunningham NO FORWARDING ADDRESS 06/16/02 Steve Freedman, RN [address] [place], [place] [phone] Marketing Clerk Internal Medicine 08/09/22 Ribbon Cutter Relationship Specialty Start Date End Date Raul Bellamy PA-C NO FORWARDING ADDRESS PCP - General Family Medicine 03/16/21 Salma Cunningham NO FORWARDING ADDRESS 06/16/02 Steve Freedman, LI [address] [place], [place] [phone] Marketing Clerk Internal Medicine 08/09/22 Ribbon Cutter Relationship Specialty Start Date End Date Matthias Dias MD [address] [place], [place] 686131 PCP - General Family Medicine 07/22/24 Salma Cunningham NO FORWARDING ADDRESS 06/16/02 Ribbon Cutter Relationship Specialty Start Date End Date Matthias Dias MD [address] [place], [place] [id number] PCP - General Family Medicine 07/22/24 Salma Cunningham NO FORWARDING ADDRESS 06/16/02 Steve Freedman, [place] [address] [place], [place] [phone] Marketing Clerk Internal Medicine 08/09/22 1 09/29/23 Ribbon Cutter Relationship Specialty Start Date End Date Matthias Dias MD [address] [place], [place] 237961 PCP - General Family Medicine 07/22/24 Salma Cunningham NO FORWARDING ADDRESS 06/16/02 Dominga Ann, WATER MECHANIC.ROOF BOLTER OPERATOR [address] [place] [address] Cell Plasterer Family [facility] 08/03/24 Afia Schafer APRN.ROOF BOLTER OPERATOR [address] [place] [address] Cell Plasterer [facility] 08/03/24 Ribbon Cutter Relationship Specialty Start Date End Date Matthias Dias MD [address] [place] [address] PCP - General Family Medicine 07/22/24 Salma Cunningham NO FORWARDING ADDRESS 06/16/02 Dominga Ann APRN.ROOF BOLTER OPERATOR [address] [place] [address] [facility] 08/[facility]/24 Afia Schafer APRN.ROOF BOLTER OPERATOR [address] [place] [address] [facility] 08/03/24 Ribbon Cutter Relationship Specialty Start Date End Date Matthias Dias MD [address] [place] [address] PCP - General Family Medicine 07/22/24 Salma Cunningham NO FORWARDING ADDRESS 06/16/02 Steve Freedman RN [address] [place] [address] Marketing Clerk Internal Medicine 08/09/22 1 09/29/23 Dominga Ann APRN.ROOF BOLTER OPERATOR [address] [place] [address] Cell Plasterer Family [facility] 08/03/24 Afia Schafer APRN.ROOF BOLTER OPERATOR [address] [place] [address] Cell Plasterer Family Medicine 08/03/24 Ribbon Cutter Relationship Specialty Start Date End Date Matthias Dias MD [address] [facility] [address] PCP - General Family Medicine 07/22/24 Salma Cunningham NO FORWARDING ADDRESS 06/16/02 Dominga Ann, WATER MECHANIC.ROOF BOLTER OPERATOR [address] [place] [address] Cell Plasterer [facility] 08/03/24 Afia Schafer WATER MECHANIC.ROOF BOLTER OPERATOR [address] [place] [address] [facility] 08/03/24 Ribbon Cutter Relationship Specialty Start Date End Date Matthias Dias MD [address] [place] [address] PCP - General Family Medicine 07/22/24 Salma Cunningham NO FORWARDING ADDRESS 06/16/02 Dominga Ann, WATER MECHANIC.ROOF BOLTER OPERATOR [address] [place] [address] Cell Plasterer Family Medicine 08/03/24 Afia Schafer, WATER MECHANIC.ROOF BOLTER OPERATOR [address] [place] [address] [facility] 08/03/24 Ribbon Cutter Relationship Specialty Start Date End Date Matthias Dias MD [address] [place] [address] PCP - General Family Medicine 07/22/24 Salma Cunningham NO FORWARDING ADDRESS 06/16/02 Dominga Ann APRN.ROOF BOLTER OPERATOR [address] [place] [address] Cell Plasterer Family [facility] 08/03/24 Afia Schafer APRN.ROOF BOLTER OPERATOR [address] [place] [address] Cell Plasterer [facility] 08/03/24 Ribbon Cutter Relationship Specialty Start Date End Date Matthias Dias MD [address] [place] [address] PCP - General Family Medicine 07/22/24 Salma Cunningham NO FORWARDING ADDRESS 06/16/02 Dominga Ann APRN.ROOF BOLTER OPERATOR [address] [place] [address] [facility] 08/03/24 Afia Schafer APRN.ROOF BOLTER OPERATOR [address] [place] [address] [facility] 08/03/24 Ribbon Cutter Relationship Specialty Start Date End Date Matthias Dias MD [address] [place] [address] PCP - General Family Medicine 07/22/24 Salma Cunningham NO FORWARDING ADDRESS 06/16/02 Dominga Ann APRN.ROOF BOLTER OPERATOR [address] [place] [address] Cell Plasterer Family [facility] 08/03/24 Afia Schafer APRN.ROOF BOLTER OPERATOR [address] [facility] [place] [address] Cell Plasterer Family Medicine 08/03/24 Ribbon Cutter Relationship Specialty Start Date End Date Matthias Dias MD [address] [facility] [address] PCP - General Family Medicine 07/22/24 Salma Cunningham NO FORWARDING ADDRESS 06/16/02 Dominga Ann, WATER MECHANIC.ROOF BOLTER OPERATOR [address] [facility] [place] [address] Cell Plasterer Family Medicine 08/03/24 Afia Schafer, WATER MECHANIC.ROOF BOLTER OPERATOR [address] [facility] [place] [address] Cell Plasterer Family Medicine 08/03/24 Ribbon Cutter Relationship Specialty Start Date End Date Matthias Dias MD [address] [facility] [place] [address] PCP - General Family Medicine 07/22/24 Salma Cunningham NO FORWARDING ADDRESS 06/16/02 Dominga Ann, WATER MECHANIC.ROOF BOLTER OPERATOR [address] [facility] [place] [address] Cell Plasterer Family Medicine 08/03/24 Afia Schafer WATER MECHANIC.ROOF BOLTER OPERATOR [address] [facility] [place] [address] Cell Plasterer Family Medicine 08/03/24 Ribbon Cutter Relationship Specialty Start Date End Date Matthias Dias MD [address] [facility] [place], [place] [address] [phone] PCP - General Family Medicine 07/22/24 Salma Cunningham NO FORWARDING ADDRESS 06/16/02 Dominga Ann APRN.ROOF BOLTER OPERATOR [address] [place] [address] Cell Plasterer Family Medicine 08/03/24 Afia Schafer APRN.ROOF BOLTER OPERATOR [address] [place] [address] Cell Plasterer Family [facility] 08/03/24 Ribbon Cutter Relationship Specialty Start Date End Date Matthias Dias MD [address] [place] [address] PCP - General Family Medicine 07/22/24 Salma Cunningham NO FORWARDING ADDRESS 06/16/02 Dominga Ann APRN.ROOF BOLTER OPERATOR [address] [place] [address] Cell Plasterer Family Medicine 08/03/24 Afia Schafer APRN.ROOF BOLTER OPERATOR [address] [place] [address] Cell Plasterer Family [facility] 08/03/24 Ribbon Cutter Relationship Specialty Start Date End Date Matthias Dias MD [address] [place] [address] PCP - General Family Medicine 07/22/24 Salma Cunningham NO FORWARDING ADDRESS 06/16/02 Dominga Ann APRN.ROOF BOLTER OPERATOR [address] [place] [address] Cell Plasterer Family Medicine 08/03/24 Afia Schafer APRN.ROOF BOLTER OPERATOR [address] [facility] [address] Cell Plasterer [facility] 08/03/24 Ribbon Cutter Relationship Specialty Start Date End Date Matthias Dias MD [address] [facility] [address] PCP - General Family Medicine 07/22/24 Salma Cunningham NO FORWARDING ADDRESS 06/16/02 Dominga Ann, WATER MECHANIC.ROOF BOLTER OPERATOR [address] [place] [address] [facility] 08/03/24 Afia Schafer WATER MECHANIC.ROOF BOLTER OPERATOR [address] [place] [address] [facility] 08/03/24 Ribbon Cutter Relationship Specialty Start Date End Date Matthias Dias MD [address] [place] [address] PCP - General Family Medicine 07/22/24 Salma Cunningham NO FORWARDING ADDRESS 06/16/02 Dominga Ann, WATER MECHANIC.ROOF BOLTER OPERATOR [address] [place] [address] [facility] 08/03/24 Afia Schafer WATER MECHANIC.ROOF BOLTER OPERATOR [address] [facility] [facility] [place] [place] [id number] [phone] [facility] Medicine 08/03/24 Ribbon Cutter Relationship Specialty Start Date End Date Matthias Dias MD [address] [facility], [place] [address] [phone] PCP - General Family Medicine 07/22/24 Salma Cunningham NO FORWARDING ADDRESS 06/16/02 Dominga Ann APRN.ROOF BOLTER OPERATOR [address] [place], [place] [id number] Cell Plasterer [facility] 08/03/24 Afia Schafer APRN.ROOF BOLTER OPERATOR [address] [place], [place] [id number] [facility] 08/03/24 Reason for Visit (unrecogniz ed section and content) Reason Comments Follow Up Low Back Pain Physical Therapy Specialty Diagnoses / Procedures Referred By Patel t Referred To Contact Spine [place] Diagnoses Radiculopathy, lumbar region Procedures CONSULT [facility] OFF[facility]/OUTPATIENT [facility] 60 MINUTES Felecia Calderon MD [address] [address] Referral ID Status Reason Start Date Expiration Date V isits Requested Visits Authorized [id number] Closed PCP Requested Referral 12/10/2023 12/09/2024 1 1 Reason Comments bowel problems Reason Comments Diarrhea Reason Comments Patient Update Reason Comments Patient Update Diarrhea Reason Comments Nausea no emesis- zofran do esn't help Diarrhea having at least 1 x daily - no formed stool Reason Comments Results Reason Comments Results Patient Question Reason Onset Date Comments Refill Request 03/21/2022 Reason Comments Established Patient Reason Onset Date Comments Refill Request 03/28/2022 Reason Comments Radiology Mammogram Specialty Diagnoses / Procedures Referred By Contabram t Referred To Contact BR IMAGING Diagnoses Inconclusive mammogram Procedures BLADIMIR DIAGNOSTIC RT DIAGNOSTIC MAMMOGRAPHY COMPUTER-AIDED DETCJ UNI Layla Bellamy PA-C [address] [place] [address] [facility] [address] [place] [address] Referral ID Status Reason Start Date Expiration Date V isits Requested Visits Authorized [id number] Closed Auto-Generate d Referral 02/19/2022 03/21/2023 1 1 Reason Comments Results Reason Onset Date Comments Refill Request 04/04/2022 Reason Comments Follow Up Reason Comments Orders Results Reason Comments Blood work questions Reason Comments Established Patient Follow Up Post Op Reason Onset Date Comments Refill Request 05/28/2022 Reason Comments Follow Up No concerns Reason Onset Date Comments Refill Request 07/05/2022 Reason Comments Dizziness Reason Onset Date Comments cdm 08/08/2022 enrollment Reason Comments COVID medication question Reason Comments Orders Reason Comments Question Reason Onset Date Comments community monitoring outreach 08/16/2022 CD M telephonic Reason Onset Date Comments Refill Request 08/20/2022 Reason Onset Date Comments Refill Request 08/12/2022 Reason Onset Date Comments community monitoring outreach 09/13/2022 CD M telephonic Reason Onset Date Comments Refill Request 09/17/2022 Reason Onset Date Comments Refill Request 09/22/2022 Reason Comments Results CBC and iron Reason Comments Results Reason Comments Med Change Request Reason Onset Date Comments community monitoring outreach 10/12/2022 CD M telephonic Reason Onset Date Comments Refill Request 11/05/2022 Reason Onset Date Comments community monitoring outreach 11/12/2022 CD M telephonic Reason Onset Date Comments Refill Request 11/19/2022 Reason Onset Date Comments community monitoring outreach 12/10/2022 CD M telephonic Reason Comments Escalation of Care Reason Onset Date Comments Refill Request 12/21/2022 Reason Onset Date Comments Refill Request 01/03/2023 Reason Onset Date Comments Refill Request 01/22/2023 Reason Comments CARD Follow Up 6 Month No cardiac concer ns Reason Onset Date Comments community monitoring outreach 02/11/2023 CD M telephonic Reason Comments ER F/U [facility] ER FU 02/12/23. D x'd with vertigo. Reason Onset Date Comments community monitoring outreach 03/11/2023 CD M telephonic Reason Onset Date Comments Refill Request 04/07/2023 Reason Onset Date Comments community monitoring outreach 05/02/2023 CD M telephonic Reason Onset Date Comments community monitoring outreach 05/31/2023 CD M telephonic Reason Onset Date Comments Refill Request 06/08/2023 Reason Comments Refill Request Specialty Diagnoses / Procedures Referred By Contac t Referred To Contact MR IMAGING Diagnoses IPMN (intraductal papillary mucinous neoplasm) Procedures MRI PANC/JUANJO WO/W IVCON MRI ABDOMEN W/O & W/CONTRAST MATERIAL Layla Bellamy PA-C [address] [place] [address] [place] [address] Referral ID Status Reason Start Date Expiration Date V isits Requested Visits Authorized [id number] Closed Auto-Generate d Referral 10/15/2022 11/14/2023 1 1 Reason Comments Ear Pain left ear some in rig ht x 2 days Reason Onset Date Comments community monitoring outreach 10/11/2023 CD M telephonic Reason Onset Date Comments community monitoring outreach 11/12/2023 CD M telephonic Reason Onset Date Comments community monitoring outreach 12/10/2023 CD M telephonic Reason Comments Follow Up Reason Onset Date Comments Refill Request 12/15/2023 Reason Comments Low Back Pain Reason Onset Date Comments communy monitoring outreach 01/07/2024 CD M telephonic Reason Onset Date Comments community monitoring outreach 02/04/2024 CD M telephonic Reason Onset Date Comments Refill Request 02/04/2024 Reason Onset Date Comments community monitoring outreach 03/03/2024 CD M telephonic Reason Comments Cough X3 weeks with headac he and nasal congestion Reason Comments Fall Missed chair x3 days ago and fell onto tailbone. Has been having pain since. Reason Onset Date Comments Refill Request 03/18/2024 Reason Onset Date Comments community monitoring outreach 03/31/2024 CD M telephonic Reason Comments 6 Month Exam Reason Onset Date Comments community monitoring outreach 04/28/2024 CD M telephonic Reason Comments Orders Reason Onset Date Comments community monitoring outreach 05/26/2024 CD M telephonic Reason Onset Date Comments community monitoring outreach 06/23/2024 CD M telephonic Reason Comments Consult Lt breast nipple dis charge Specialty Diagnoses / Procedures Referred By Contac t Referred To Contact MR IMAGING Diagnoses Spinal stenosis of lumbar region with neurogenic claudication Radiculopathy, lumbar region Procedures MRI LUMBAR SPINE WO IVCON MRI SPINAL CANAL LUMBAR W/O CONTRAST MATERIAL Salma Medina PA-C [address] [place] [address] [place] [address] Referral ID Status Reason Start Date Expiration Date V isits Requested Visits Authorized [id number] Closed Auto-Generate d Referral 05/29/2024 06/28/2025 1 1 Reason Onset Date Comments community monitoring outreach 07/07/2024 CD M telephonic Reason Comments Low Back Pain Follow Up Established Patient Reason Comments Injection Referral DW Referral Reason Comments Mammogram Abnormality Reason Comments Schedule Injection Salma Medina PA-C Referral Reason Comments Consult Reason Comments post biopsy follow up Reason Comments Follow Up excision of lesion o f left breast Reason Comments 08-04-2024 Lumpectomy [place] Reason Comments 6 Month Exam Back Pain Knee Pain Reason Comments Patient Question Reason Onset Date Comments Population Health Navigation Outreach [facility] Reason Comments Sore Throat dizziness, ear pain and headache x 10/23 Reason Comments New Patient Specialty Diagnoses / Procedures Referred By Contac t Referred To Contact Cardiology Diagnoses Valvular heart disease Procedures CONSULT TO CARDIOLOGY OFFICE/OUTPATIENT NEW HIGH MDM 60 MINUTES Afia Schafer APRN.ROOF BOLTER OPERATOR [address] [place] [address] Phone: tel: fax: Referral ID Status Reason Start Date Expiration Date V isits Requested Visits Authorized [id number] Closed PCP Requested Referral 11/20/2024 10/23/2025 1 1 Reason Comments Arm Pain left Reason Comments Acute Visit L arm pain x1 week; itchy rash present on L elbow Reason Comments Covid19 Concern INFORMATION SOURCE (unrecogn ized section and content) DATE CREATED AUTHOR 07/12/2024 [facility] DATE CREATED AUTHOR AUTHOR'S ORGANIZ ATION 08/07/2024 [facility] DATE CREATED AUTHOR AUTHOR'S ORGANIZ ATION 09/16/2024 [facility] DATE CREATED AUTHOR AUTHOR'S ORGANIZ ATION 07/02/2025 [facility] FOR RECORDS PERTAINING TO PATIENTS WHO ARE OR HAVE BEEN ENROLLED IN A CHEMICAL DEPENDENCY/SUBSTANCEABUSE PROGRAM, SOME INFORMATION MAY BE OMITTED. This clinical summary was aggregated from multiple sources. Caution should be exercised in using it in the provision of clinical care. This summary normalizes information from multiple sources, and as a consequence, information in this document may materially change the coding, format and clinical context of patient data. In addition, data may be omitted in some cases. CLINICAL DECISIONS SHOULD BE BASED ON THE PRIMARY CLINICAL RECORDS. [email or web address] provides no warranty or guarantee of the accuracy or completeness of information in this document.
--- NOTE | 2025-08-23 05:21 | EDS_ITS ---
HPI History of Present Illness Chief Complaint: Sore Throat Informant: patient Narrative Narrative: Patient is an 80-year-old female with past medical history of hypertension hyperlipidemia anxiety and depression. She states she has had roughly 3 days of generalized fatigue with congestion cough and sore throat. She denies any known sick contacts. She states she is waited a few days to see if symptoms would improve and they have not done so and secondary to this she presents for evaluation. [facility] Medical History Grade I diastolic dysfunction Peripheral neuropathy Iron deficiency anemia Pulmonary HTN Nonrheumatic mitral valve regurgitation IBS (irritable bowel syndrome) GERD (gastroesophageal reflux disease) CAD (coronary artery disease) Seasonal allergies Pulmonary nodules Urge urinary incontinence RAVIN (obstructive sleep apnea) Prosthetic joint infection Osteoarthritis History of gastrointestinal bleeding Diverticulosis Anxiety and depression Asthma Hyperlipidemia HTN (hypertension) Home Medications ?Medication ?Instructions ?Recorded ?Last Taken ?Type acetaminophen 500 mg tablet 1,000 mg (2 x 500 mg) PO Q 8H PRN 09/06/21 Unknown Rx PRN Pain Score 1-10 #0 tabs albuterol sulfate 90 mcg/actuation 2 puff inhalation Q 6H PRN PRN Sob 09/06/21 Unknown Rx aerosol inhaler (Ventolin HFA) &/Or Wheezing #0 grams fluticasone propionate 50 1 spray NASAL DAILY PRN MAYCO ESTION 09/06/21 Unknown Rx mcg/actuation nasal #0 grams spray,suspension ascorbic acid (vitamin C) 500 mg 1,000 mg PO LUNCH Sup plement 09/07/21 Unknown History tablet aspirin 81 mg chewable tablet 81 mg PO BREAKFAST Heart 09/07/21 Unknown History cholecalciferol (vitamin D3) 25 50 mcg PO DAILY Supple ment 09/07/21 Unknown History mcg (1,000 unit) tablet meloxicam 7.5 mg tablet 7.5 mg PO BID pain 09/07/21 Unknown History rosuvastatin 5 mg tablet (Crestor) 5 mg PO QHS Cholest carla 09/07/21 Unknown History pantoprazole 40 mg tablet,delayed 40 mg PO DAILY GERD 30 days #30 09/25/21 Unknown Rx release tabs bupropion HCl 150 mg 24 hr tablet, 150 mg PO DAILY Moo d 30 days #30 10/03/21 Unknown Rx extended release tabs metoprolol succinate 25 mg 25 mg PO BID BP 30 days #60 tabs 10/03/21 Unknown Rx tablet,extended release 24 hr folic acid 1 mg tablet 02/12/23 Unknown History meclizine 25 mg tablet 25 mg PO TID PRN dizziness # 15 tabs 02/12/23 Unknown Rx codeine 10 mg-guaifenesin 100 mg/5 10 ml PO 4X/DAY PRN flu symptoms 7 08/23/25 Unknown Rx mL oral liquid days #280 mL ondansetron 4 mg disintegrating 4 mg PO TID PRN nausea and 08/23/25 Unknown Rx tablet vomiting #21 tabs Allergy/AdvReac Type Severity Reaction Status Date / Time vancomycin Allergy Intermediate Other Verified 08/23/25 03:44 Penicillins (PCN) Allergy red/rash Verified 08/23/25 03:44 at injection site promethazine HCl (From Allergy Unknown Verified 08/23/25 03:44 Phenergan) Teckffc-Dvr-Jpi Reductase Allergy Other Verified 08/23/25 03:44 Inhibitor Sulfa (Sulfonamide Allergy Swelling Verified 08/23/25 03:44 Antibiotics) Family History Grandfather Cancer paternal GF Grandfather Cancer maternal GF Father CAD (coronary artery disease) Diabetes Grandmother No problems noted. 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 housing: house Smoking Status: Never smoker alcohol intake: never substance use type: does not use ROS ROS ED Constitutional Constitutional ED: Reports chills, fever(s) and subjective Eyes Eyes: Denies change in vision ENT ENT ED: Reports rhinorrhea and sore throat Cardiovascular Cardiovascular: Denies chest pain Respiratory/Chest Respiratory/Chest: Reports cough; Denies dyspnea Gastrointestinal Gastrointestinal: Reports nausea; Denies abdominal pain, diarrhea or vomiting Genitourinary Genitourinary ED: Denies dysuria Musculoskeletal Musculoskeletal: Reports myalgias Integumentary Denies rash Neurologic Neurologic: Reports headache(s) Hematologic/Lymphatic Hematologic/Lymphatic: Denies easy bleeding or easy bruising EXAM Physical Exam Const Vital Signs: 08/23/25 03:41 08/23/25 03:45 08/23/25 05:31 Temperature 98.5 F 98.5 F Temperature Source Oral Pulse Rate 95 86 Respiratory Rate 14 14 Respiratory Pattern Normal Blood Pressure 177/88 H 146/65 H Blood Pressure Mean 117 92 Pulse Ox 98 100 Oxygen Delivery Method Room Air Positive well nourished and well developed General Appearance ED: well developed; Negative for pallor HEENT HEENT Narrative: Normocephalic atraumatic Nasal mucosa is hyperemic and boggy No tongue or lip swelling no oral lesions no airway edema or compromise Cobblestoning is noted in the posterior pharynx consistent with sinus drainage without secondary findings to suggest infection No change in voice no trismus no difficulty with secretions Eyes PERRL and EOMs intact bilaterally General Eye ED: Negative for scleral icterus Neck supple Neck Narrative: No nuchal rigidity or meningeal signs Positive anterior cervical lymphadenopathy is noted Resp normal respiratory effort and clear to auscultation bilaterally Cardio regular rate and regular rhythm GI non-tender, non-distended and no masses GI Narrative: Soft nontender nondistended with hyperactive bowel sounds No voluntary guarding or rigidity or pulsatile mass No peritoneal signs Auscultation: hyperactive bowel sounds Palpation: soft Extremity normal to inspection Extremity Narrative: No asymmetric edema Negative Homans' sign bilaterally Neuro oriented x3, CN's II-XII intact bilaterally and no sensory deficits noted Sensorium / Orientation: alert Motor Exam: strength 5/5 throughout Psych Mood & Affect: anxious Skin no rashes or lesions noted General Skin Exam: Negative for jaundice or pallor MDM MDM MDM Narrative Medical decision making narrative: Patient arrived to ER hypertensive but has a past medical history of this and otherwise with stable vitals. History and exam is most consistent with viral infection such as COVID versus influenza versus RSV. Physical exam does not suggest strep pharyngitis or peritonsillar abscess or epiglottitis so I feel no need for a CT soft tissue of the neck. She is in no respiratory distress but in order to assess potential pneumonia chest x-ray was ordered. Symptomatic care was provided with IV fluid and Zofran and Decadron as well as Toradol. The patient's viral swab was positive for influenza A. Chest x-ray suggested potential pneumonia in the left lower lung but based on the fact she has a viral infection this was most likely developing viral pneumonia but as she is not hypoxic or in respiratory distress would not require antibiotics or admission. After receiving her medication she reported feeling much better and vital st abilized. Therefore this time with the fact she is not hypoxic or in respiratory distress or showing signs of systemic infection/sepsis from the influenza there is no need for further intervention and she is otherwise safe for discharge with symptomatic care History & Record Review Discussion w/independent historian: Patient Radiography Diagnostic Testing: Clinical Impression(s) from Imaging Studies Chest X-Ray 08/23/25 03:54 IMPRESSION: Interstitial densities in the lower left lung may represent pneumonia. Reading Location: REPLACED BY [facility] Chest x-ray as interpreted by the emergency medicine physician reveals hazy opacities in the lower lobes slightly greater on the left which could indicate atelectasis or developing infiltrate Discharge Plan Triage Chief Complaint: Sore Throat ED Provider: Mic Kenny Dx/Rx/DC Orders Clinical Impression: Influenza A, HTN (hypertension), Hyperlipidemia, Nausea, Anxiety and depression Instructions: ED Influenza (Adult) Prescriptions: New ondansetron 4 mg tablet,disintegrating 4 mg PO TID PRN (Reason: nausea and vomiting) Qty: 21 0RF codeine-guaifenesin 10-100 mg/5 mL liquid 10 ml PO 4X/DAY PRN (Reason: flu symptoms) 7 Days Qty: 280 0RF No Action acetaminophen 500 mg Tablet 1,000 mg PO Q8H PRN PRN (Reason: Pain Score 1-10) Qty: 0 0RF fluticasone propionate 50 mcg/actuation [place],Suspension 1 spray NASAL DAILY PRN (Reason: CONGESTION) Qty: 0 0RF albuterol sulfate [Ventolin HFA] 90 mcg/actuation Hfa Aerosol Inhaler 2 puff inhalation Q6H PRN PRN (Reason: Sob &/Or Wheezing) Qty: 0 0RF meloxicam 7.5 mg tablet 7.5 mg PO BID ascorbic acid (vitamin C) 500 mg tablet 1,000 mg PO LUNCH aspirin 81 mg tablet,chewable 81 mg PO BREAKFAST rosuvastatin [Crestor] 5 mg tablet 5 mg PO QHS cholecalciferol (vitamin D3) 25 mcg (1,000 unit) tablet 50 mcg PO DAILY pantoprazole 40 mg tablet,delayed release (DR/EC) 40 mg PO DAILY 30 Days Qty: 30 0RF metoprolol succinate 25 mg tablet extended release 24 hr 25 mg PO BID 30 Days Qty: 60 0RF bupropion HCl 150 mg tablet extended release 24 hr 150 mg PO DAILY 30 Days Qty: 30 0RF folic acid 1 mg tablet Patient Comments: TAKE 1 TABLET BY MOUTH EVERY DAY meclizine 25 mg tablet 25 mg PO TID PRN (Reason: dizziness) Qty: 15 0RF Primary Care Provider: Layla Bellamy Referrals: Layla Bellamy PA [Primary Care Provider, Medical] Activity Restrictions/Additional Instructions: You tested positive for influenza A. This is a viral infection that will last on average 7 days. It can go as long as 10 to 14 days. The treatment is symptomatic so therefore keep yourself well-hydrated take Tylenol and or Motrin for pain control and use the prescribed cough medication to help reduce pain and cough as well. Return to the ER if you have any further concerns or worsening of symptoms Print Language: Uzbek Disposition Disposition: Home, Self Care Discharge Date/Time: 08/23/25 05:32
[2025-08-23 05:31] VITALS: BP 146/65; PULSE 86; RESP 14; TEMP 36.9; O2SAT 100
== END 2025-08-23 05:32 | disposition home or self-care (01) ==
PROVIDERS: Emergency Provider Emergency Medicine; PCP Physician Assistant; Visit Provider Emergency Medicine
DX: J09.X2 Influenza due to identified novel influenza A virus with other respiratory manifestations (principal); I11.0 Hypertensive heart disease with heart failure; I50.32 Chronic diastolic (congestive) heart failure; F32.A Depression, unspecified; F41.9 Anxiety disorder, unspecified; E78.5 Hyperlipidemia, unspecified; R11.0 Nausea
CPT/HCPCS: 71046; 87631; 96361; 96374; 96375; 99284; A4216; J2405